=== PATIENT | male | born 1945 | race Caucasian/White ===

== ENCOUNTER 2019-10-17 10:38 | Outpatient (CLI) | payer MEDICARE, SELFPAY ==
--- NOTE | 2019-10-24 12:27 | WPDPFTINT ---
PFT Interpretation PFT Interpretation: DOS: 10/17/2019 REQUESTING: Cynthia Guo NP REASON FOR TESTING: Cough PULMONARY FUNCTION TESTS Results are reliable and reproducible. Spirometry: Normal FEV1 86% predicted, mild decrease in FVC 70%, normal FEV1%. No bronchodilator was given. Lung volumes: Decreased total lung capacity 77% mild restriction. No air trapping. ERV is low 45%, and may be due to increased BMI. Increased airway resistance 215% predicted. Diffusion: DLCO mildly decreased 72%. Flow volume loop: Restrictive pattern. IMPRESSION: Mild restrictive ventilatory impairment without evidence of obstruction. The restriction may be attributed to increased BMI. Restriction can mask obstruction. There is increase in airway resistance. Very mild diffusion impairment. Clinical correlation is recommended. No prior studies for comparison. Raven Jones MD
== END 2019-10-17 10:39 | disposition home or self-care (01) ==
PROVIDERS: PCP Family Medicine
DX: R05 Cough (principal); J42 Unspecified chronic bronchitis
CPT/HCPCS: 94375; 94726; 94729

== ENCOUNTER 2019-11-18 11:05 | Outpatient (CLI) | payer MEDICARE, SELFPAY | END 2019-11-18 11:06 | disposition home or self-care (01) | PROVIDERS: PCP Family Medicine | DX: R06.02 Shortness of breath (principal); R05 Cough | CPT/HCPCS: 87070; 87205; 89190 ==

== ENCOUNTER → 2020-09-28 16:15 | Outpatient (CLI) | payer MEDICARE, SELFPAY ==
--- NOTE | ~2020-09-28 | XR_ITS ---
EXAMINATION: XR lumbar spine 2-3V DATE: 09/28/2020 16:37 INDICATION: Right low back pain TECHNIQUE: Anteroposterior and lateral views of the lumbar spine, and cone-down lateral view of the l umbosacral junction were obtained. COMPARISON: CT, 11/12/2018 FINDINGS: There is a chronic T12 compression fracture. The lumbar vertebral body heights and alignmen t are maintained. There is mild loss of intervertebral disc space height throughout the lumbar spine. No lumbar spine fracture is identified. Calcified atherosclerosis is noted. IMPRESSION: 1. Mild lumbar spondylosis without acute findings or significant interval change. 2. Chronic T12 compression fracture. Reviewed, dictated and finalized at location A. 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 Mild lumbar spondylosis without acute findings or significant interval rice e. 2. Chronic T12 compression fracture.
== END ==
PROVIDERS: PCP Family Medicine; Visit Provider Physician Assistant Medical
DX: M54.5 Low back pain (principal); M47.816 Spondylosis without myelopathy or radiculopathy, lumbar region; M48.54XA Collapsed vertebra, not elsewhere classified, thoracic region, initial encounter for fracture
CPT/HCPCS: 72100

== ENCOUNTER → 2020-09-29 13:44 | Outpatient (CLI) | payer MEDICARE, SELFPAY ==
--- NOTE | ~2020-09-29 | XR_ITS ---
EXAMINATION: XR abdomen/kub 1V EXAM DATE: 09/29/2020 14:11 INDICATION: Low back pain, symptoms 3 weeks. TECHNIQUE: Frontal projection(s) of the abdomen for interpretation. Comparison is made to prior exami nation from 07/09/2014. FINDINGS: Mild to moderate lower thoracic levocurvature, more than on prior examination, could be pa rtly positional. Previously seen left-sided double-J ureteral stent has been removed. Calcifications in the pelvis are believed to be phleboliths. There is 3 mm linear density projecting over right kidn ey, possible nephrolithiasis. Large amount of ascending and transverse colonic gas. No small bowel ob struction. There is no organomegaly. IMPRESSION: 1. Possible right nephrolithiasis. 2. Large amount of right hemicolonic gas. Reviewed, dictated and finalized at location A. CTOR
== END ==
PROVIDERS: PCP Family Medicine; Visit Provider Nurse Practitioner Family
DX: M54.5 Low back pain (principal); Z87.442 Personal history of urinary calculi; N20.0 Calculus of kidney
CPT/HCPCS: 74018

== ENCOUNTER 2020-10-05 14:22 | Outpatient (CLI) | payer MEDICARE, SELFPAY | END 2020-10-05 14:23 | disposition home or self-care (01) | LOC: ANHCOVIDVC 14:22 | PROVIDERS: PCP Family Medicine | DX: Z23 Encounter for immunization (principal) | CPT/HCPCS: 0001A; 91300 ==

== ENCOUNTER → 2020-10-18 08:00 | Outpatient (CLI) | payer MEDICARE, SELFPAY ==
--- NOTE | ~2020-10-18 | US_ITS ---
US abdomen limited INDICATION: Right upper quadrant abdominal pain PROCEDURE: Realtime right upper abdominal ultrasound. COMPARISON: CT dated 11/12/2018 FINDINGS: Pancreas is not well visualized due to bowel gas and liver attenuation. Liver echotexture is increased, consistent with fatty infiltration. There is normal directional flow in the portal vei n. The gallbladder is contracted without stones, gallbladder wall thickening or pericholecystic fluid. Common bile duct measures 6 mm. No sonographic Hillman's sign. IMPRESSION: 1: Hepatic steatosis. Reviewed, dictated and finalized at location A. IMPRESSION: 1: Hepatic steatosis.
== END ==
PROVIDERS: PCP Family Medicine; Visit Provider Surgery
DX: R10.11 Right upper quadrant pain (principal); K76.0 Fatty (change of) liver, not elsewhere classified
CPT/HCPCS: 76705

== ENCOUNTER 2020-10-21 08:22 | Outpatient (CLI) | payer MEDICARE, SELFPAY ==
--- NOTE | ~2020-10-21 | NM_ITS ---
EXAMINATION: NM bone scan whole body DATE: 10/21/2020 12:38 INDICATION: Low back pain. TECHNIQUE: 25.7 mCi Tc-99m HDP was administered intravenously. Delayed whole-body scintigrams were o btained. COMPARISON: CT abdomen and pelvis dated 11/12/2018 FINDINGS: Likely degenerative joint centered uptake at the partially visualized bilateral hands, the bilateral knees, ankles and left midfoot and at the bilateral acromioclavicular joints, right greater than left . There is likely degenerative disc centered increased uptake such with severe disc height loss on pr ior CT at the C6-C7 disc space. Additional likely degenerative increased uptake along the right side of the mid to lower lumbar spine in the region of T9 and T12 which could be related to either osteoar thritis at the costovertebral or facet joints or related to degenerative endplate osteophytes. No cor responding acute fracture or suspicious lytic or blastic bone lesions at these locations. No other le sions suspicious for fracture or metastatic disease. Mild lower thoracic levoscoliosis. IMPRESSION: 1. Typical pattern of scattered foci of likely degenerative joint and disc centered uptake. No lesion s suspicious for fracture or metastatic disease. Reviewed, dictated and finalized at location A. IMPRESSION: 1. Typical pattern of scattered foci of likely degenerative joint and disc cent ered uptake. No lesions suspicious for fracture or metastatic disease.
== END 2020-10-21 08:23 | disposition home or self-care (01) ==
PROVIDERS: PCP Family Medicine; Visit Provider Family Medicine
DX: M54.5 Low back pain (principal); N18.30 Chronic kidney disease, stage 3 unspecified; S22.080S Wedge compression fracture of T11-T12 vertebra, sequela
CPT/HCPCS: 78306; A9561

== ENCOUNTER 2020-10-26 14:09 | Outpatient (CLI) | payer MEDICARE, SELFPAY | END 2020-10-26 14:10 | disposition home or self-care (01) | LOC: ANHCOVIDVC 14:09 | PROVIDERS: PCP Family Medicine | DX: Z23 Encounter for immunization (principal) | CPT/HCPCS: 0002A; 91300 ==

== ENCOUNTER 2020-10-27 07:20 | Outpatient (CLI) | payer MEDICARE, SELFPAY ==
--- NOTE | ~2020-10-27 | NM_ITS ---
EXAMINATION: NM hepatobiliary w pharm DATE: 10/27/2020 10:33 INDICATION: Gallbladder disease and right upper quadrant pain. COMPARISON: None. TECHNIQUE: 5.1 mCi Tc-99m mebrofenin (Choletec) was administered intravenously. Scintigraphic images of the abdomen were obtained for one hour. 2.9 mcg sincalide (Kinevac) was administered by slow intr avenous infusion, and imaging was continued for 30 minutes. Gallbladder ejection fraction was calcula yocasta by the technologist. FINDINGS: There is normal clearance of radiotracer from the blood pool. There is homogeneous tracer uptake by t he liver. Activity progresses to the gallbladder and bowel. The gallbladder ejection fraction (GBEF) is 24% (normal 10-90%, but most patient with gallbladder dysfunction have GBEF < 35% which does over lap with the normal range). IMPRESSION: 1. . Gallbladder ejection fraction of 24% is at the lower range of normal. This could be normal but is also within the range of overlap with gallbladder dysfunction or chronic cholecystitis in the tina ropriate clinical setting. Reviewed, dictated and finalized at location A. IMPRESSION: 1. . Gallbladder ejection fraction of 24% is at the lower range of normal. Th is could be normal but is also within the range of overlap with gallbladder dys function or chronic cholecystitis in the appropriate clinical setting.
== END 2020-10-27 07:21 | disposition home or self-care (01) ==
PROVIDERS: PCP Family Medicine; Visit Provider Family Medicine
DX: R10.11 Right upper quadrant pain (principal); K82.8 Other specified diseases of gallbladder
CPT/HCPCS: 78227; A9537; J2805

== ENCOUNTER 2021-02-17 08:00 | Outpatient (RCR) | payer MEDICARE, SELFPAY ==
--- NOTE | 2021-01-18 09:11 | PTOPEVAL ---
INITIAL PHYSICAL THERAPY EVALUATION and PLAN OF CARE Thank you for referring Danial Wilson to [facility].? Danial is scheduled to be seen for physical therapy? 2x/week for 4 weeks. Please review, sign, date and return this plan of care SARAH. I agree with and certify that the following plan of care is medically necessary. Referring Physician Date Admitting Provider: Attending Provider: Lucio Oliveira MD Referring Provider: *PT Outpatient Evaluation Start: 01/18/21 07:59 Freq: Status: Active Protocol: Document 01/18/21 07:59 KARIN (Rec: 01/18/21 09:10 KARIN [id number]) Therapy Assessment Status Assessment Status Assessment Status Evaluation Outpatient Past Medical History Past Medical History Source of Past Medical History Recalled from Previous Visit, Confirmed with Patient/Family Neurological History Hx Neurological Disorders No Significant History Cardiovascular History Hx Hypercholesterolemia Yes: TAKES MED Hx Hypertension Yes: TAKES MED Respiratory History Hx Bronchitis Yes: CHRONIC Hx Emphysema Yes Hx Pulmonary Embolism Yes: LT LUNG 08/2018 Hx Sleep Apnea Yes: WEARS BI PAP WITH O2 2L Gastrointestinal History Hx Esophageal Disorders Yes: DILITATION X3 Hx Ulcerative Colitis Yes: TAKES MED Genitourinary History Hx Benign Prostatic Hyperplasia Yes Hx Kidney Stones Yes: MULT.STONE EXTRACTIONS SINCE AGE 35 Hx Transurethral Resection Yes: TURP 1994 Musculoskeletal History Hx Arthritis Yes Hx Fractures Yes: T 12 IN 1979 Hematological History Hx Hematological Disorders No Significant History Endocrine History Hx Endocrine Disorders No Significant History HEENT History Hx Cataracts Yes: BILAT SURG. Integumentary History Hx Skin Disorders No Significant History Reproductive History Hx Reproductive Disorders No Significant History Psychosocial History Hx Anxiety Yes Pain History History of Any Previous or Ongoing No Significant History Instance of Pain Anesthesia History Hx Anesthesia Reactions No Significant History Evaluation Information Problem Diagnosis low back pain Onset October 2020 Additional Evaluation Detail wedge compression freacture of T11-12 vertebra - 1979 - carnival ride - landed on back - hospitalized x 1 wk Subjective Information Recently had several falls in Query Text:As Reported By Patient/ bathtub - couple of weeks ago Family - hit back, head, L shoulder -
--- NOTE | 2021-02-17 10:29 | PTOPEVAL ---
PHYSICAL THERAPY DISCHARGE SUMMARY Thank you for referring Danial Wilson to [facility].? Danial has been seen x 9 visits. He has met most goals set. He performs his HEP well which he is to continue to perform. He is ready for d/c from PT. I agree with Danial's discharge from PT. Referring Physician Date Admitting Provider: Attending Provider: Lucio Oliveira MD Referring Provider: Therapy Assessment Status Assessment Status Assessment Status Discharge Evaluation Information Problem Diagnosis low back pain Subjective Information Danial states that he is okay Query Text:As Reported By Patient/ with shopping as long as he Family has a cart. Low back pain is always there - sometimes at a low level, other times 5/10. Doing okay with HEP. He reports with medication from MD for back spasms, he is able to sleep 10 hours/night. Pain Assessment Timing of Pain Assessment Timing of Pain Assessment Assessment Pain Scale Pain Scale Used Numeric (1 - 10) Self Report Pain Assessment Back Reported Pain Level 5 Pain Description Dull Lowest Pain Intensity 2 Greatest Pain Intensity 5 Pain Score Pain Score 5: Self Report Interventions Used Interventions Used By Clinicians Electrical Stimulation, Exercise,Heat Cervical and Lumbar ROM Lumbar ROM Lumbar Flexion (0-90) 50 Query Text:Active in Degrees Lumbar Extension (0-40) 15 Query Text:Active in Degrees Lumbar Lateral Flexion Right (0-40) 15 Query Text:Active in Degrees Lumbar Lateral Flexion Left (0-40) 15 Query Text:Active in Degrees Lumbar Comments trunk held in neutral in standing today. No c/o's discomfort with trunk AROM. General Exercise General Exercises Exercise Location core Exercise Description Seated: Query Text:Record Sets, Reps, -HS stretch 3x15 sec hold Resistance, and Position -lower cervical and upper thoracic stretch 3x15 sec hold -Mid thoracic rotation stretch 3x15 sec hold - modified - mild rotation hand to opposite medial distal thigh - reinforced to only go this far -seated back extension over chair 3x15 sec hold - Seated hip adduction x 10 reps with 5 seconds hold
== END 2021-02-18 14:41 | disposition home or self-care (01) ==
LOC: ANHPT 08:00
PROVIDERS: PCP Family Medicine; Visit Provider Family Medicine
DX: M54.5 Low back pain (principal); G89.29 Other chronic pain; S22.080D Wedge compression fracture of T11-T12 vertebra, subsequent encounter for fracture with routine healing
CPT/HCPCS: 97014; 97110; 97140; 97162; G0283

== ENCOUNTER → 2021-04-11 15:45 | Outpatient (CLI) | payer MEDICARE, SELFPAY ==
--- NOTE | ~2021-04-11 | XR_ITS ---
XR chest 2V DATE: 04/11/2021 17:00 INDICATION: Shortness of breath TECHNIQUE: 2 views COMPARISON: 12/09/2018 PA and lateral chest FINDINGS: There is chronic moderate elevation of the right leaf of the diaphragm. Borderline heart size. Aortic calcification. No pulmonary consolidation, pleural effusion or pneumothorax is evident. Pulmonary vascularity appear s mildly prominent with redistribution which may indicate pulmonary venous hypertension. Diffuse osteopenia. Chronic anterior wedge compression fracture deformity of approximately T12 IMPRESSION: Pulmonary vascular redistribution suggests mild pulmonary venous hypertension Reviewed, dictated and finalized at location A. IMPRESSION: Pulmonary vascular redistribution suggests mild pulmonary venous hy pertension
== END ==
PROVIDERS: PCP Family Medicine; Visit Provider Family Medicine
DX: R06.02 Shortness of breath (principal); M48.54XA Collapsed vertebra, not elsewhere classified, thoracic region, initial encounter for fracture
CPT/HCPCS: 71046

== ENCOUNTER 2021-06-11 13:11 | Inpatient (IN) | payer MEDICARE, SELFPAY ==
[2021-06-11] VITALS (9 sets, daily range): BP systolic 104–131; BP diastolic 39–70; PULSE 63–101; RESP 14–25; TEMP 36–36.6; O2SAT 93–100; BMI 43.6
--- NOTE | ~2021-06-11 | CT_ITS ---
EXAMINATION: CT abdomen pelvis wo con DATE: 06/13/2021 01:10 INDICATION: Vomiting TECHNIQUE: Computed tomography (CT) of the abdomen and pelvis was performed without intravenous contr ast. Automated exposure control and iterative reconstruction technique were employed. Exam dose: 191 6.58 mGy-cm total exam DLP. COMPARISON: 11/12/2018 CT abdomen pelvis FINDINGS: Cardiomegaly. No pericardial or pleural effusion. Coronary artery calcification. Predominantly basilar peripheral probable fibrotic changes of the lungs. There are couple of hepatic calcified granulomas and numerous splenic calcified granulomas consistent with old granulomatous disease. No hepatic, splenic, pancreatic, adrenal space-occupying mass lesion . The gallbladder is present. No bile duct or pancreatic duct dilatation. Bilateral renal cysts. Approximately 6 mm nonobstructing right renal calculus and 2 smaller nonobstru cting left renal calculi. No ureteral calculus or hydroureteronephrosis. There is extensive abdominal aortic calcification and calcification at the origins of the celiac, sup erior mesenteric and renal arteries. No abdominal aortic aneurysm. No intraperitoneal or retroperitoneal or pelvic mass lesion or adenopathy or ascites. Small sliding hiatal hernia. There is prominent thickening of the wall of the rectum and sigmoid colon and surrounding inflammator y change consistent with proctocolitis. Diverticulosis of the colon; no CT evidence of diverticulitis. Status post right partial colectomy. No bowel obstruction or intraperitoneal free air. Small bilateral fat-containing inguinal hernias. There is moderate anterior wedging of T12 consistent with compression fracture, likely chronic. There are degenerative changes of the thoracic and lumbar spine. No suspicious osteolytic or osteoblastic lesions are noted. IMPRESSION: Proctocolitis, with thickening of the wall and surrounding inflammation involving the di stal sigmoid colon and rectum Diverticulosis of the colon; no CT evidence of diverticulitis Status post right partial colectomy Cardiomegaly, coronary artery calcification Peripheral fibrotic changes of the lungs Bilateral nonobstructive nephrolithiasis Bilateral renal cysts Small sliding hiatal hernia Reviewed, dictated and finalized at Location A. Reviewed, dictated and finalized at location A. NE BOSS IMPRESSION: Proctocolitis, with thickening of the wall and surrounding inflamm ation involving the distal sigmoid colon and rectum Diverticulosis of the colon; no CT evidence of diverticulitis Status post right partial colectomy Cardiomegaly, coronary artery calcification Peripheral fibrotic changes of the lungs Bilateral nonobstructive nephrolithiasis Bilateral renal cysts Small sliding hiatal hernia
--- NOTE | ~2021-06-11 | US_ITS ---
EXAMINATION: US renal BI DATE: 06/13/2021 17:04 INDICATION: Acute kidney injury. TECHNIQUE: Multiple ultrasound grayscale images of the kidneys were obtained. COMPARISON: CT abdomen and pelvis 06/13/2021 FINDINGS: The right kidney measures 10.9 x 6.6 x 3.9 cm. The left kidney measures 11.1 x 5.0 x 5.2 cm. The kidn eys demonstrate normal parenchymal echogenicity. There are cysts in left kidney measuring up to 2.9 c m. There is no hydronephrosis. The bladder is decompressed by a Haider catheter. IMPRESSION: 1. Normal kidney sizes. No hydronephrosis. Reviewed, dictated and finalized at location A. PEDIATRIC ALLERGIST
--- NOTE | ~2021-06-11 | XR_ITS ---
XR chest 1V portable DATE: 06/13/2021 00:28 INDICATION: Shortness of breath, new onset fever. Vomiting. TECHNIQUE: Portable upright AP chest on 06/13/2021 at 0023 hours COMPARISON: 04/11/2021 2 view chest FINDINGS: There is pulmonary vascular congestion and redistribution. Heart size is not optimally eval uated on AP projection magnification. There are patchy infiltrates in the mid and lower lung zones. These may be due to pulmonary edema and /or pneumonia. Moderate elevation right leaf of the diaphragm. There is minimal if any pleural effusion. No pneumoth orax. Dextro scoliosis of the thoracic spine. Diffuse osteopenia. IMPRESSION: Pulmonary vascular congestion and bilateral pulmonary infiltrates suggesting congestive c hanges; pneumonia is not excluded Reviewed, dictated and finalized at location A. EL LOCOMOTIVE FIRER/FIREMAN IMPRESSION: Pulmonary vascular congestion and bilateral pulmonary infiltrates s uggesting congestive changes; pneumonia is not excluded
--- NOTE | ~2021-06-11 | XR_ITS ---
EXAMINATION: XR abdomen/kub 1V INDICATION: Constipation, urinary retention TECHNIQUE: Supine views of the abdomen were obtained on three radiographs. COMPARISON: 09/29/2020 FINDINGS: There is a moderate volume of stool in the distal colon with gas-filled loops of proximal c olon. No free intraperitoneal gas is identified. There is moderate osteoarthritis of the hips. Phlebo liths are noted in the pelvis. IMPRESSION: 1. Constipation. Reviewed, dictated and finalized at location A. ATING THEATRE TECHNICIAN IMPRESSION: 1. Constipation.
--- NOTE | 2021-06-11 13:46 | ED.MALEGU ---
HPI - Male Genitourinary General Chief complaint: Urogenital-Male Stated complaint: no urine since 10pm last night Time Seen by Provider: 06/11/21 13:20 Source: patient and family Mode of arrival: ambulatory Limitations: no limitations History of Present Illness HPI Narrative: 75-year-old male Main complaint is inability to void, with no passage of urine since sometime yesterday evening He is prescribed both metolazone and Lasix, and also has a prescription for Gemtesa which is for overactive bladder No hematuria, no dysuria, no back pain, no fever He additionally complains of constipation, reviewing his record it looks like this is been somewhat of a chronic issue since he had a hemicolectomy There are some chart notes indicating that he had a normal BMP in March and subsequently was started on the metolazone for swelling and his says that he diuresed very briskly in response to that However his indicates that he at some point had to see Dr. Traore as his creatinine was found to have risen and he was advised to stop taking the metolazone for 10 days and be rechecked Related Data Home Medications Medication Instructions Recorded Confirmed clonazepam 2 mg PO HS 05/30/19 04/18/21 guaifenesin [Mucinex] 600 mg PO DAILY 05/30/19 04/18/21 lysine HCl 1,000 mg PO DAILY 05/30/19 04/18/21 multivitamin [Multiple Vitamins] 1 tablet PO DAILY 05/30/19 04/18/21 oxybutynin chloride 15 mg PO DAILY 05/30/19 04/18/21 pramipexole 2 mg HS 05/30/19 04/18/21 oxybutynin chloride 15 mg 15 mg PO DAILY 04/11/21 04/18/21 tablet,extended release 24 hr vibegron 75 mg tablet 75 mg PO DAILY 04/11/21 04/18/21 cholecalciferol (vitamin D3) 100 5,000 unit PO DAILY cap 04/18/21 04/18/21 mcg (4,000 unit) capsule azithromycin 250 mg tablet 250 mg PO DAILY 04/19/21 Allergies Allergy/AdvReac Type Severity Reaction Status Date / Time codeine AdvReac Mild CONSTIPATIO Verified 04/19/21 10:57 N methylprednisolone AdvReac Mild Vomiting Verified 04/19/21 10:57 prednisone AdvReac Unknown Vomiting Verified 04/19/21 10:57 Review of Systems Review of Systems: All systems reviewed & are unremarkable except as noted in HPI and below Constitutional: Constitutional: Reports no additional constitutional complaints, Denies chills, Reports fatigue, Denies fever(s), Denies headache(s) and Reports weakness Comments: Weight loss Eyes: Eyes: Reports change in vision ENT: Denies headache(s) and Denies sore throat Cardiovascular: Cardiovascular: Denies chest pain and Denies dyspnea Respiratory: Respiratory: Denies cough and Denies dyspnea Gastrointestinal: Gastrointestinal: Denies abdominal pain, Reports bloating, Reports constipation, Denies diarrhea and Denies vomiting Genitourinary: Genitourinary: Reports oliguria, Denies dysuria and Denies urinary frequency Musculoskeletal: Musculoskeletal: Reports myalgias, Denies deformity, Denies arthralgias, Denies joint swelling and Denies numbness Integumentary/Breasts: Skin/Breast: Denies rash and Denies wounds Neurologic: Denies headache(s), Denies focal weakness and Denies numbness Psychiatric: Psychiatric: Reports no additional psychiatric complaints Endocrine: Endocrine: Reports no additional endocrine complaints Hematologic/Lymphatic: Hematologic/Lymphatic: Reports no additional hematologic/lymphatic complaints Allergic/Immunologic: Allergic/Immunologic: Reports no additional allergic/immunologic complaints [facility] Past Medical History Medical History Anxiety BMI 40.0-44.9, adult BMI 45.0-49.9, adult Compression fx, thoracic spine COPD (chronic obstructive pulmonary disease) GERD (gastroesophageal reflux disease) History of blood clots HTN (hypertension) Hyperlipidemia Low serum vitamin D KIRSTEN on CPAP Sensation of feeling cold Skin tags, anus or rectum Sludge in gallbladder Surgical History Surgical History (Reviewed 06/11/21 @ 1
[2021-06-11 14:00] LABS: Basophils Absolute Auto 0.1 K/mm3 (0.0-0.1); Basophils Percent Auto 1.1 % (0.2-1.2); Eosinophils Absolute Auto 0.5 K/mm3 (0-0.3); Eosinophils Percent Auto 5.4 % (0-4.4); Hematocrit 36.9 % (42.0-52.0); Hemoglobin 13.1 g/dL (14.0-18.0); Immature Granulocyte Absolute 0.03 K/mm3 (0.00-0.031); Immature Granulocyte Percent A 0.3 % (0-0.5); Lymphocytes Absolute Auto 1.72 K/mm3 (0.9-3.2); Lymphocytes Percent Auto 18.4 % (18.3-44.2); Mean Corpuscular HGB Conc 35.5 g/dl (32-36); Mean Corpuscular Volume 92.9 fl (80-100); Mean Platelet Volume 9.7 fl (7.4-10.4); Monocytes Absolute Auto 0.9 K/mm3 (0.1-0.6); Monocytes Percent Auto 9.7 % (2.6-8.5); Neutrophils Absolute Auto 6.1 K/mm3 (1.3-6.7); Neutrophils Percent Auto 65.1 % (45.5-73.1); Platelet Count Result 295 k/mm3 (150-375); Red Blood Count 3.97 M/mm3 (4.6-6.20); Red Cell Distribution Width 12.1 % (11.5-14.5); White Blood Count 9.4 K/mm3 (4.5-10.0)
[2021-06-11 14:11] LABS: Add Urine Microscopic? YES; Appearance Urine Cloudy (Clear); Bacteria Urine Trace /hpf; Bilirubin Urine Negative (Negative); Blood Urine 2+ (Negative); Color Urine Yellow (Yellow); Glucose Urine UA Negative (Negative); Ketones Urine Negative (Negative); Leukocyte Esterase Ur Negative LEU/UL (Negative); Mucus Urine Few /lpf; Nitrate Urine Negative (Negative); Protein Urine 1+ mg/dL (Negative); RBC Urine 0-2 /hpf (0-2); Specific Grav Ur 1.011 (1.001-1.035); Squamous Epithelial Cell Urine Occasional /hpf (Few); Urobilinogen Urine Negative mg/dL (<2.0)
--- NOTE | 2021-06-11 14:29 | ECG_ITS ---
Rate 63 MD 119 QRSd 181 QT 506 QTc 521 --[place]-- P -32 QRS -38 T 84 SINUS RHYTHM WITH SHORT MD INTERVAL LEFT AXIS DEVIATION RIGHT BUNDLE BRANCH BLOCK LEFT VENTRICULAR HYPERTROPHY AND ST-T CHANGE BASELINE ARTIFACT- I, II, III, AVR, AVL, AVF, V1-V6 ABNORMAL ECG Electronically Signed On 06-11-2021 15:16:21 MEDICAL REGISTRAR by Stoney SOSA
[2021-06-11 15:29] LABS: Alanine Aminotransferase 36 U/L (4-50); Albumin Level 4.1 g/dL (3.5-5.1); Alkaline Phosphatase 98 U/L (38-126); Anion Gap 8 mmol/L (8-16); Aspartate Amino Transferase 63 U/L (17-59); Bilirubin,Total 0.7 mg/dL (0.2-1.3); Blood Urea Nitrogen 62 mg/dL (9-20); Calcium 9.3 mg/dL (8.4-10.2); Carbon Dioxide 35 mmol/L (22-30); Chloride 78 mmol/L (98-107); Estimated CRCL calculation 22 ml/min; Estimated Glomerular Filt Rate 17; Glucose 112 mg/dL (65-110); Potassium 3.1 mmol/L (3.4-5.0); Sodium 121 mmol/L (137-145)
[2021-06-11] MEDS: POTASSIUM CHLORIDE 20 MEQ PACKET (FOR LIQUID) 40 MEQ PO (17:35)
[2021-06-11] MEDS: SODIUM CHLORIDE 0.9% IV 1,000 ML 150 ML IV CONT (18:00)
--- NOTE | 2021-06-11 18:44 | ADMGEN ---
This patient, Danial Wilson, was admitted to 3 [facility] Surg Room 313-01 at 1755. Patient/family oriented to hospital policies and general routines including ID bracelet, bed and alarms, visiting hours, pain management, procedures, bathroom and other care routines, personal items, smoking policy, room service/diet, and visiting hours. Information on how to activate the Rapid Response Team has been discussed. Patient/Family are encouraged to report perceived risks to care and to ask questions if they do not understand what they are told or what they should do.
--- NOTE | 2021-06-11 19:00 | PM.IMHP ---
H&P: HPI History of Present Illness Date/Time: 06/11/21 19:00 Chief Complaint: Decreased urine output and concerns for urinary retention. Narrative: This is a 75-year-old male with multiple medical problems including hypertension, hyperlipidemia, chronic kidney disease stage III, obstructive sleep apnea, benign prostatic hyperplasia status post TURP, and several other comorbidities who presented to the emergency department earlier today for evaluation of decreased urine output with concerns for urinary retention. Patient reports that he was unable to urinate for about 14 to 15 hours before coming to the emergency department and reports that his urine output had dropped off before that, which is not necessarily unusual for him given history of BPH. BUN and creatinine on arrival to the emergency department today were 62 and 3.60 and they were noted to be within normal limits at the end of March 2021. More recently he had outpatient labs done within the past 10 days or so showing an acute kidney injury with a creatinine of right around 4.0. He was told to hold his furosemide and metolazone by his orthotics assistant and he has not been taking those for the last 4 days. He also reports ongoing nausea over the past several weeks with occasional episodes of emesis. He goes on to say that he has a history of esophageal stricture and more recently he has had difficulties swallowing and on occasion it feels as though food is getting stuck in his esophagus. Patient also reports being started on some new medications recently, 1 for bladder spasms and another for overactive bladder. He has not noticed any blood in the urine although it has appeared darker than usual. He denies dysuria. No fever, chills, or sweats. Review of Systems Review of Systems: Twelve systems were reviewed. Occasional lightheadedness on standing. No syncope or near syncope. No falls. He has a chronic cough occasionally productive of yellow phlegm which is unchanged. Patient is compliant with his BiPAP at nighttime. He has chronic dyspnea on exertion which he relates to his weight. He denies orthopnea and PND. He has intermittent lower extremity edema and it is minimal at this time. He denies concerns for aspiration. Reports issues with constipation and apparently has not had a bowel movement for 15 days. He takes 2 stool softeners a day but he has not tried to take any laxatives. He is supposed to be following up with Dr. Guevara for a colonoscopy, hopefully in the next month or so. Except as documented, all other systems were reviewed and are negative. [facility] Past Medical History Medical History (Updated 06/11/21 @ 20:58 by Norma Peralta PA-C) Anxiety Benign prostatic hyperplasia Chronic anemia Chronic obstructive pulmonary disease Compression fx, thoracic spine Gastroesophageal reflux disease History of esophageal dilatation Hyperlipidemia Hypertension Low serum vitamin D Obstructive sleep apnea treated with BiPAP Overactive bladder Pulmonary embolism (08/2018) Secondary erythrocytosis Related to COPD and obstructive sleep apnea. Previously received therapeutic phlebotomy. Tubulovillous adenoma of colon Ulcerative colitis Surgical History Surgical History (Updated 06/11/21 @ 20:53 by Norma Peralta PA-C) History of bilateral cataract extraction History of cardiac catheterization History of colonoscopy with polypectomy History of cystoscopy History of decompression of ulnar nerve Left elbow. History of dental surgery History of extraction of renal calculus History of right hemicolectomy (06/10/19) Benign tubulovillous adenoma. Hx of transurethral resection of prostate Family History Family History Father Hypertension Malignant neoplasm of prostate Sibling Diabetes mellitus Family history of cardiovascular disease Malignant neoplasm of prostate Mother Family history of rheumatic fever Deceas
[2021-06-11] MEDS: FAMOTIDINE 20 MG/2 ML VIAL IV PUSH (20:29)
[2021-06-11 21:25] LABS: Anion Gap 10 mmol/L (8-16); Blood Urea Nitrogen 58 mg/dL (9-20); Calcium 9.3 mg/dL (8.4-10.2); Carbon Dioxide 34 mmol/L (22-30); Chloride 81 mmol/L (98-107); Estimated CRCL calculation 26 ml/min; Estimated Glomerular Filt Rate 20; Glucose 141 mg/dL (65-110); Magnesium 2.3 mg/dL (1.6-2.3); Potassium 3.2 mmol/L (3.4-5.0); Sodium 125 mmol/L (137-145)
[2021-06-11] MEDS: HEPARIN SODIUM 5,000 UNITS/ML VIAL 5000 UNITS SUB-Q (21:50)
[2021-06-11] MEDS: PRAMIPEXOLE 1 MG TABLET 2 MG PO (21:50)
[2021-06-11 22:09] LABS: Thyroid Stimulating Hormone Reflex 0.591 uIU/mL (0.465-4.68)
[2021-06-11 22:19] LABS: Urea Random Urine 306 MG/DL
[2021-06-11 22:20] LABS: Creatinine Urine 49.1 mg/dL
[2021-06-11 22:23] LABS: Sodium Urine Random 23 meq/L
[2021-06-12] MEDS: POTASSIUM CHLORIDE 20 MEQ TABLET PO ×2 (00:25→08:34)
[2021-06-12] MEDS: SODIUM CHLORIDE 0.9% IV 1,000 ML 150 ML IV CONT ×2 (01:32→11:06)
[2021-06-12 02:38] VITALS: PULSE 79; O2SAT 93
[2021-06-12 06:00] VITALS: BP 101/33; PULSE 67; RESP 22; TEMP 36.3; O2SAT 99
[2021-06-12 06:35] LABS: Anion Gap 5 mmol/L (8-16); Blood Urea Nitrogen 56 mg/dL (9-20); Calcium 9.1 mg/dL (8.4-10.2); Carbon Dioxide 34 mmol/L (22-30); Chloride 85 mmol/L (98-107); Estimated CRCL calculation 29 ml/min; Estimated Glomerular Filt Rate 23; Glucose 112 mg/dL (65-110); Potassium 3.2 mmol/L (3.4-5.0); Sodium 124 mmol/L (137-145)
[2021-06-12] MEDS: ROSUVASTATIN 10 MG TABLET 20 MG PO (08:33)
[2021-06-12] MEDS: CHOLECALCIFEROL 1,000 UNITS TABLET 5000 UNITS PO (08:33)
[2021-06-12] MEDS: amLODIPine BESYLATE 2.5 MG TABLET PO (08:34)
[2021-06-12] MEDS: FAMOTIDINE 20 MG/2 ML VIAL IV PUSH ×2 (08:34→20:15)
[2021-06-12] MEDS: ASPIRIN 81 MG CHEWABLE TABLET PO (08:34)
[2021-06-12] MEDS: HEPARIN SODIUM 5,000 UNITS/ML VIAL 5000 UNITS SUB-Q ×2 (08:34→20:14)
[2021-06-12] MEDS: ACETAMINOPHEN 325 MG TABLET 650 MG PO (08:38)
[2021-06-12] MEDS: DOCUSATE SODIUM 100 MG CAPSULE PO ×2 (08:38→20:16)
[2021-06-12 12:02] LABS: Sodium 126 mmol/L (137-145)
--- NOTE | 2021-06-12 13:02 | PM.IMPN ---
Progress Note: A&P Assessment and Plan (1) Acute kidney injury: Code(s): N17.9 - Acute kidney failure, unspecified Status: Acute Assessment and Plan: Precipitating etiology is not entirely clear but is most likely related to a combination of over-diuresis and urinary retention. He has 1+ protein and 2+ blood on urine dipstick so nephritis could be a possibility as well though with his electrolytes it may very well be related to over diuresis. He was instructed by his shape brick molder, Dr. Traore to hold his furosemide and metolazone and has been doing so for 4 days. Appreciate nephrology consultation Hold diuretics, hold benazepril balsalazide. Continue with cautious IV hydration with close monitoring of volume status and renal function. Haider catheter has been inserted for strict I/O. Monitor renal function closely. Renally dose medications and avoid nephrotoxins. Creatinine improved today down to 2.7 (2) Electrolyte abnormality: Code(s): E87.8 - Other disorders of electrolyte and fluid balance, not elsewhere classified Status: Acute Assessment and Plan: Including moderate hyponatremia (121), hypokalemia (3.1), and hypochloremia (78). Improving was cautious IV hydration Continue to monitor electrolytes Sodium improved to 126 with IV fluids. FENa is 1.1% (though he has only been off diuretics for 4 days). FEUrea is 32.2%. Repeat sodium this evening to ensure appropriate rate of correction Potassium still slightly decreased at 3.2, will administer 20 mEq KCl Repeat BMP tomorrow. Continue to monitor electrolytes (3) Chronic anemia: Code(s): D64.9 - Anemia, unspecified Status: Acute Assessment and Plan: Hemoglobin and hematocrit are stable on review of previous labs. (4) Ulcerative colitis: Code(s): K51.90 - Ulcerative colitis, unspecified, without complications Status: Acute Assessment and Plan: No acute issues. Balsalazide is on hold as it has been implemented in renal failure, interstitial nephritis, and minimal change disease. (5) Hypertension: Code(s): I10 - Essential (primary) hypertension Status: Acute Assessment and Plan: Blood pressures were reviewed and they are stable. Running on low-end of normal today with last BP 101/33. Several antihypertensives on hold at this time as above. Continue to monitor BP trends. (6) Benign prostatic hyperplasia: Code(s): N40.0 - Benign prostatic hyperplasia without lower urinary tract symptoms Status: Acute Assessment and Plan: Continue Haider catheter. Will need to consider Haider catheter but will await for nephrology recommendations to allow for accurate I&O at this time. (7) Overactive bladder: Code(s): N32.81 - Overactive bladder Status: Acute Assessment and Plan: Oxybutynin and vibegron currently on hold given concerns for retention on arrival. (8) Obstructive sleep apnea treated with BiPAP: Code(s): G47.33 - Obstructive sleep apnea (adult) (pediatric) Status: Acute Assessment and Plan: Continue with BiPAP which patient brought from home. (9) Constipation: Code(s): K59.00 - Constipation, unspecified Status: Acute Assessment and Plan: Reports no bowel movement for 15 days. Abdominal x-ray demonstrates moderate volume of stool. May be related to anticholinergic medication, which have now been placed on hold. Continue MiraLax and Colace. Will also administer Dulcolax suppository. Subjective Date/time seen: 06/12/21 13:02 Interval history: Date of service: 06/12/2021 Danial Wilson is a 75-year-old male with a history of BPH s/p TURP, overactive bladder, COPD, CKD stage 3, hypertension, hyperlipidemia, KIRSTEN on BiPAP, and several other medical problems who is seen in follow-up for urinary retention and acute kidney injury. He is feeling fairly well today. He did not sleep
[2021-06-12] MEDS: polyethylene glycoL 3350 17 GM POWD.PACK PO (13:42)
[2021-06-12 14:00] VITALS: BP 124/47; PULSE 58; RESP 18; TEMP 36.1; O2SAT 91
--- NOTE | 2021-06-12 14:20 | PM.CNNEP ---
Assessment and Plan Assessment and plan (1) SHUBHAM (acute kidney injury): Code(s): N17.9 - Acute kidney failure, unspecified Status: Acute Assessment and Plan: suspect due to volume depletion this was likely worsened by previous diuretic use, urinary retention, and concurrent EDI-I use slow improvement noted in creatinine since admission persaud catheter in place follow repeat labs and UOP (2) Chronic kidney disease, stage 2 (mild): Code(s): N18.2 - Chronic kidney disease, stage 2 (mild) Status: Acute Assessment and Plan: baseline creatinine runs ~ 1.1 - 1.4mg/dl due to hypertension, vascular disease, and age-related change (3) Hyponatremia: Code(s): E87.1 - Hypo-osmolality and hyponatremia Status: Acute Assessment and Plan: suspect hypovolemic hyponatremia low urine sodium supports this improvement in sodium noted since admission goal of therapy is a rate of change of 4 - 6meq/24hrs (and no more than 8meq) follow trend of repeat sodium levels (4) Benign prostatic hyperplasia: Code(s): N40.0 - Benign prostatic hyperplasia without lower urinary tract symptoms Status: Chronic Assessment and Plan: persaud catheter in place follow I/Os voiding trial before discharge (5) KIRSTEN (obstructive sleep apnea): Code(s): G47.33 - Obstructive sleep apnea (adult) (pediatric) Status: Chronic Assessment and Plan: use home BiPAP nightly (6) Constipation: Code(s): K59.00 - Constipation, unspecified Status: Acute Assessment and Plan: started on bowel regimen Will continue to follow. History of Present Illness Reason for Consult Consult date: 06/12/21 Reason for consult: acute renal failure (on chronic kidney disease) and hyponatremia Chief Complaint Chief complaint: hyponatremia/hypokalemia/shubham History of Present Illness Narrative: The patient is a 75-year-old male with multiple medical problems As outlined below who presented to [facility] Emergency room with complaints of decreased urine output. According to the patient as well as his was at bedside, he has been unable to urinate the last 15 hr before coming to the emergency room. Even prior to that, she reports that his urine output seems to have decreased in general although it should be noted that he was recently taken off of his diuretics due to his worsening renal dysfunction. His diuretics were discontinued on the assumption that they are responsible for his worsening kidney disease/ function and possibly resulting in intravascular volume depletion. Workup and evaluation in the emergency room demonstrated the patient to be hemodynamically stable but the patient himself reported that he felt terrible. Routine blood test done in the emergency room demonstrated a marked decline in his kidney function from baseline with a BUN of 62 and a creatinine of 3.6 in association with electrolyte abnormalities of hyponatremia and hypokalemia.. It should be noted that labs done about a week prior to that showed his cranial 4.0mg/dL. Other associated symptoms include ongoing nausea for last several weeks with on and off episodes of emesis. Due to these symptoms, his oral intake has fallen off quite a bit. He prior to the issue of decreased urine output, he did report that his urine seems a bit dark and concentrated in comparison to what is usual for him. Given his apparent acute kidney injury on top of his baseline kidney disease, coupled with a constellation of symptoms as mentioned, he had a Persaud catheter placed and was subsequently to the hospital for further evaluation and therapy. Renal consultation was requested due to his acute kidney injury on top of his baseline kidney disease along with the aforementioned hypokalemia and hyponatremia. The patient is somewhat known to me as I take care of his outpatient chronic kidney disease needs. His baseline cre
[2021-06-12] MEDS: BISACODYL 10 MG SUPPOSITORY RECTAL (17:16)
[2021-06-12 18:33] LABS: Sodium 130 mmol/L (137-145)
[2021-06-12 20:00] VITALS: PULSE 83; RESP 12; O2SAT 94
[2021-06-12 20:04] VITALS: PULSE 94; O2SAT 97
[2021-06-12] MEDS: ONDANSETRON INJ 4 MG/2 ML VIAL IV PUSH (20:14)
[2021-06-12] MEDS: traZODone HCL 50 MG TABLET 200 MG PO (20:15)
[2021-06-12] MEDS: clonazePAM (*CRX) 0.5 MG TABLET 2 MG PO (20:16)
[2021-06-12] MEDS: PRAMIPEXOLE 1 MG TABLET 2 MG PO (20:17)
[2021-06-12 22:00] VITALS: BP 146/46; PULSE 83; RESP 12; TEMP 36.6; O2SAT 94
[2021-06-12 22:18] LABS: Sodium 129 mmol/L (137-145)
[2021-06-13] VITALS (7 sets, daily range): BP systolic 104–119; BP diastolic 40–57; PULSE 65–89; RESP 16–18; TEMP 37.1–38.3; O2SAT 93–98
[2021-06-13 00:42] LABS: Hematocrit 36.1 % (42.0-52.0); Hemoglobin 12.8 g/dL (14.0-18.0); Mean Corpuscular HGB Conc 35.5 g/dl (32-36); Mean Corpuscular Hemoglobin 32.8 pg (26-34); Mean Corpuscular Volume 92.6 fl (80-100); Mean Platelet Volume 9.4 fl (7.4-10.4); Platelet Count Result 278 k/mm3 (150-375); Red Cell Distribution Width 12.2 % (11.5-14.5)
[2021-06-13 00:51] LABS: Anion Gap 7 mmol/L (8-16); Blood Urea Nitrogen 47 mg/dL (9-20); Calcium 9.3 mg/dL (8.4-10.2); Carbon Dioxide 29 mmol/L (22-30); Chloride 91 mmol/L (98-107); Estimated CRCL calculation 35 ml/min; Estimated Glomerular Filt Rate 29; Glucose 137 mg/dL (65-110); Potassium 3.9 mmol/L (3.4-5.0); Sodium 127 mmol/L (137-145)
[2021-06-13 00:52] LABS: Lactic Acid Reflex 1.2 mmol/L (0.7-2.1)
[2021-06-13] MEDS: PROMETHAZINE HCL 25 MG/ML AMPUL 12.5 MG IV PUSH (06:01)
[2021-06-13 06:45] LABS: Hematocrit 35.1 % (42.0-52.0); Hemoglobin 12.4 g/dL (14.0-18.0); Mean Corpuscular HGB Conc 35.3 g/dl (32-36); Mean Corpuscular Hemoglobin 32.9 pg (26-34); Mean Corpuscular Volume 93.1 fl (80-100); Mean Platelet Volume 9.9 fl (7.4-10.4); Platelet Count Result 304 k/mm3 (150-375); Red Blood Count 3.77 M/mm3 (4.6-6.20); Red Cell Distribution Width 12.2 % (11.5-14.5); White Blood Count 11.2 K/mm3 (4.5-10.0)
[2021-06-13 06:57] LABS: Anion Gap 7 mmol/L (8-16); Blood Urea Nitrogen 51 mg/dL (9-20); Calcium 9.3 mg/dL (8.4-10.2); Carbon Dioxide 33 mmol/L (22-30); Chloride 89 mmol/L (98-107); Estimated CRCL calculation 30 ml/min; Estimated Glomerular Filt Rate 24; Glucose 127 mg/dL (65-110); Potassium 3.9 mmol/L (3.4-5.0); Sodium 129 mmol/L (137-145)
[2021-06-13] MEDS: FAMOTIDINE 20 MG/2 ML VIAL IV PUSH ×2 (10:25→21:35)
[2021-06-13] MEDS: HEPARIN SODIUM 5,000 UNITS/ML VIAL 5000 UNITS SUB-Q ×2 (10:25→21:35)
--- NOTE | 2021-06-13 13:40 | PCNSR ---
On 06/13/21, the student,Shira Flood, provided care and completed [facility] documentation on this patient. I have reviewed the student's documentation and agree with the findings.
--- NOTE | 2021-06-13 14:07 | PM.IMPN ---
Progress Note: A&P Assessment and Plan (1) Acute kidney injury: Code(s): N17.9 - Acute kidney failure, unspecified Status: Acute Assessment and Plan: Precipitating etiology is not entirely clear but is most likely related to a combination of over-diuresis and urinary retention. He has 1+ protein and 2+ blood on urine dipstick so nephritis could be a possibility as well though with his electrolytes it may very well be related to over diuresis. He was instructed by his cane weigher helper, Dr. Traore to hold his furosemide and metolazone and has been doing so for 4 days. Appreciate nephrology consultation Hold diuretics, hold benazepril balsalazide. Continue with cautious IV hydration with close monitoring of volume status and renal function. Haider catheter has been inserted for strict I/O. Monitor renal function closely. Renally dose medications and avoid nephrotoxins. Creatinine has been fluctuating 2.7->2.2->2.6. (2) Electrolyte abnormality: Code(s): E87.8 - Other disorders of electrolyte and fluid balance, not elsewhere classified Status: Acute Assessment and Plan: Including moderate hyponatremia (121), hypokalemia (3.1), and hypochloremia (78). Improving was cautious IV hydration Continue to monitor electrolytes Sodium improved to 129 with IV fluids. FENa is 1.1% (though he has only been off diuretics for 4 days). FEUrea is 32.2%. Repeat sodium this evening to ensure appropriate rate of correction Potassium normal at 3.9. Repeat BMP tomorrow. Continue to monitor electrolytes (3) Chronic anemia: Code(s): D64.9 - Anemia, unspecified Status: Acute Assessment and Plan: Hemoglobin and hematocrit are stable on review of previous labs. (4) Ulcerative colitis: Code(s): K51.90 - Ulcerative colitis, unspecified, without complications Status: Acute Assessment and Plan: No acute issues. Balsalazide is on hold as it has been implemented in renal failure, interstitial nephritis, and minimal change disease. (5) Hypertension: Code(s): I10 - Essential (primary) hypertension Status: Acute Assessment and Plan: Blood pressures were on low-end of normal today with last BP 101/33-146/46. Several antihypertensives on hold at this time as above. Continue to monitor BP trends. (6) Benign prostatic hyperplasia: Code(s): N40.0 - Benign prostatic hyperplasia without lower urinary tract symptoms Status: Acute Assessment and Plan: Continue Haider catheter. Will need to consider Haider catheter but will await for nephrology recommendations to allow for accurate I&O at this time. (7) Overactive bladder: Code(s): N32.81 - Overactive bladder Status: Acute Assessment and Plan: Oxybutynin and vibegron currently on hold given concerns for retention on arrival. (8) Obstructive sleep apnea treated with BiPAP: Code(s): G47.33 - Obstructive sleep apnea (adult) (pediatric) Status: Acute Assessment and Plan: Continue with BiPAP per is home parameters. (9) Constipation: Code(s): K59.00 - Constipation, unspecified Status: Acute Assessment and Plan: Patient had 2 large bowel movements today. Reports no bowel movement for 15 days. Abdominal x-ray demonstrates moderate volume of stool. May be related to anticholinergic medication, which have now been placed on hold. Continue MiraLax and Colace. Will also administer Dulcolax suppository. Subjective Date/time seen: 06/13/21 11:00 S: The patient was examined at the bedside. He had a very large bowel movement earlier today. At the time of my examination patient experienced bowel incontinent in the bed. He denied any active complaints. He did not seem to be in any acute distress. Interval history: Date of service: 06/12/2021 Danial Wilson is a 75-year-old male with a history of BPH s/p TURP, overactive bl
--- NOTE | 2021-06-13 15:05 | PCPTNOTE ---
Attempted PT evaluation this date. RN requested to hold due to pt not having slept well last night and having very frequent bowel movements. Will attempt again at a later date/time.
--- NOTE | 2021-06-13 15:16 | P.PNNP_ITS ---
Progress Note: A&P Assessment and Plan (1) SHUBHAM (acute kidney injury): Code(s): N17.9 - Acute kidney failure, unspecified Status: Acute Assessment and Plan: * suspect due to volume depletion * this was likely worsened by previous diuretic use, urinary retention, and concurrent EDI-I use * slow improvement noted in creatinine since admission * persaud catheter in place * resume gentle IVF hydration * follow repeat labs and UOP (2) Chronic kidney disease, stage 2 (mild): Code(s): N18.2 - Chronic kidney disease, stage 2 (mild) Status: Acute Assessment and Plan: * baseline creatinine runs ~ 1.1 - 1.4mg/dl * due to hypertension, vascular disease, and age-related change (3) Hyponatremia: Code(s): E87.1 - Hypo-osmolality and hyponatremia Status: Acute Assessment and Plan: * suspect hypovolemic hyponatremia * low urine sodium supports this * improvement in sodium noted since admission with IVFs -- will resume now * goal of therapy is a rate of change of 4 - 6meq/24hrs (and no more than 8meq) * follow trend of repeat sodium levels (4) Benign prostatic hyperplasia: Code(s): N40.0 - Benign prostatic hyperplasia without lower urinary tract symptoms Status: Acute Assessment and Plan: * persaud catheter in place * follow I/Os * voiding trial before discharge (5) KIRSTEN (obstructive sleep apnea): Code(s): G47.33 - Obstructive sleep apnea (adult) (pediatric) Status: Acute Assessment and Plan: * use home BiPAP nightly (6) Constipation: Code(s): K59.00 - Constipation, unspecified Status: Acute Assessment and Plan: * on bowel regimen * improving Will continue to follow. Subjective Date/time seen: 06/13/21 15:16 Appears to be doing reasonably well since I last saw him; finally had a bowel movement earlier today; due to concerns of overcorrection of sodium; IVFs placed on hold; no apparent distress voiced; no other acute events/issues overnight or earlier this AM. Exam Narrative: General: WD/WN male in NAD Heart: normal S1 and S2; no rub Lungs: clear to auscultation Abdomen: soft, nontender, nondistended, positive bowel sounds Extremities: no cyanosis or clubbing; trace edema Skin: warm and dry Objective Data Vital Signs Vital Signs: Vital Signs Temp Pulse Resp BP Pulse Ox 06/13/21 14:00 37.1 C 71 16 108/40 L 93 06/13/21 05:52 37.8 C H 68 18 119/44 L 95 06/13/21 03:56 89 96 06/13/21 01:15 38.2 C H 06/13/21 00:47 38.3 C H 06/12/21 22:00 36.6 C 83 12 146/46 H 94 06/12/21 20:04 94 97 06/12/21 20:00 83 12 94 Intake/Output Intake/Output: Intake & Output 06/10/21 06/11/21 06/12/21 06/13/21 23:59 23:59 23:59 23:59 Intake Total 4780 850 Output Total 2050 1250 Balance 2730 -400 Meds/Results Medications: Active Medications Generic Name Dose Route Start Last Admin Trade Name Freq PRN Reason Stop Dose Admin Acetaminophen 650 mg 06/11/21 16:22 06/12/21 08:38 Acetaminophen 325 Mg Tablet PO 650 mg Q4H PRN Administration Mild Pain (1-3) or Fever Amlodipine Besylate 2.5 mg 06/12/21 09:00 06/12/21 08
--- NOTE | 2021-06-13 15:16 | PM.PNNEP ---
Progress Note: A&P Assessment and Plan (1) SHUBHAM (acute kidney injury): Code(s): N17.9 - Acute kidney failure, unspecified Status: Acute Assessment and Plan: suspect due to volume depletion this was likely worsened by previous diuretic use, urinary retention, and concurrent EDI-I use slow improvement noted in creatinine since admission persaud catheter in place resume gentle IVF hydration follow repeat labs and UOP (2) Chronic kidney disease, stage 2 (mild): Code(s): N18.2 - Chronic kidney disease, stage 2 (mild) Status: Acute Assessment and Plan: baseline creatinine runs ~ 1.1 - 1.4mg/dl due to hypertension, vascular disease, and age-related change (3) Hyponatremia: Code(s): E87.1 - Hypo-osmolality and hyponatremia Status: Acute Assessment and Plan: suspect hypovolemic hyponatremia low urine sodium supports this improvement in sodium noted since admission with IVFs -- will resume now goal of therapy is a rate of change of 4 - 6meq/24hrs (and no more than 8meq) follow trend of repeat sodium levels (4) Benign prostatic hyperplasia: Code(s): N40.0 - Benign prostatic hyperplasia without lower urinary tract symptoms Status: Acute Assessment and Plan: persaud catheter in place follow I/Os voiding trial before discharge (5) KIRSTEN (obstructive sleep apnea): Code(s): G47.33 - Obstructive sleep apnea (adult) (pediatric) Status: Acute Assessment and Plan: use home BiPAP nightly (6) Constipation: Code(s): K59.00 - Constipation, unspecified Status: Acute Assessment and Plan: on bowel regimen improving Will continue to follow. Subjective Date/time seen: 06/13/21 15:16 Appears to be doing reasonably well since I last saw him; finally had a bowel movement earlier today; due to concerns of overcorrection of sodium; IVFs placed on hold; no apparent distress voiced; no other acute events/issues overnight or earlier this AM. Exam Narrative: General: WD/WN male in NAD Heart: normal S1 and S2; no rub Lungs: clear to auscultation Abdomen: soft, nontender, nondistended, positive bowel sounds Extremities: no cyanosis or clubbing; trace edema Skin: warm and dry Objective Data Vital Signs Vital Signs: Vital Signs Temp Pulse Resp BP Pulse Ox 06/13/21 14:00 37.1 C 71 16 108/40 L 93 06/13/21 05:52 37.8 C H 68 18 119/44 L 95 06/13/21 03:56 89 96 06/13/21 01:15 38.2 C H 06/13/21 00:47 38.3 C H 06/12/21 22:00 36.6 C 83 12 146/46 H 94 06/12/21 20:04 94 97 06/12/21 20:00 83 12 94 Intake/Output Intake/Output: Intake & Output 06/10/21 06/11/21 06/12/21 06/13/21 23:59 23:59 23:59 23:59 Intake Total 4780 850 Output Total 2050 1250 Balance 2730 -400 Meds/Results Medications: Active Medications Generic Name Dose Route Start Last Admin Trade Name Freq PRN Reason Stop Dose Admin Acetaminophen 650 mg 06/11/21 16:22 06/12/21 08:38 Acetaminophen 325 Mg Tablet PO 650 mg Q4H PRN Administration Mild Pain (1-3) or Fever Amlodipine Besylate 2.5 mg 06/12/21 09:00 06/12/21 08:34 Amlodipine Besylate 2.5 Mg Tablet PO 2.5 mg DAILY MARTHA Administration Aspirin 81 mg 06/12/21 09:00 06/12/21 08:34 Aspirin 81 Mg Chewable Tablet PO 07/12/21 08:59 81 mg DAILY MARTHA Administration Clonazepam 2 mg 06/12/21 21:00 06/12/21 20:16 Clonazepam (*Crx) 0.5 Mg Tablet PO 2 mg HS MARTHA Administration Docusate Sodium 100 mg 06/12/21 09:00 06/12/21 20:16 Docusate Sodium 100 Mg Capsule PO 100 mg Q12HR MARTHA Administration Famotidine 20 mg 06/11/21 21:00 06/12/21 20:15 Famotidine 20 Mg/2 Ml Vial IV PUSH 20 mg Q12HR MARTHA Administration Heparin Sodium (Porcine) 5,000 units 06/11/21 21:00 06/12/21 20:14 Heparin Sodium 5,000 Units/Ml Vial SUB-Q 5,000 units Q12HR MARTHA Administ
[2021-06-13] MEDS: ROSUVASTATIN 10 MG TABLET 20 MG PO (15:25)
[2021-06-13] MEDS: CHOLECALCIFEROL 1,000 UNITS TABLET 5000 UNITS PO (15:25)
[2021-06-13] MEDS: polyethylene glycoL 3350 17 GM POWD.PACK PO (15:25)
--- NOTE | 2021-06-13 15:55 | WPDGICN ---
Assessment and Plan Assessment and plan (1) Chronic anemia: Code(s): D64.9 - Anemia, unspecified Status: Acute Assessment and Plan: His anemia is probably not due to renal disease because his creatinine had been fairly normal until recently. Likewise I do not think it is due to chronic blood loss as his indices are normal, Though the fact that he has recently seen blood in his stools is certainly a factor (2) Hyponatremia: Code(s): E87.1 - Hypo-osmolality and hyponatremia Status: Acute Assessment and Plan: slowly his sodium is coming up. Today it is 129 (3) Ulcerative colitis: Code(s): K51.90 - Ulcerative colitis, unspecified, without complications Status: Acute Assessment and Plan: he has been chronically on gunter solids I would. This has been held due to his renal insufficiency. While he is here we will need to reach assess his colitis in view of the CT findings. He will need a colonoscopy when everybody is in agreement that he can tolerate the prep. He would not have any endoscopic procedures today or tomorrow so it is okay to resume his diet (4) Acute kidney failure: Code(s): N17.9 - Acute kidney failure, unspecified Status: Acute Assessment and Plan: Dr. Traore is following. It is thought that this is due to both volume depletion and recent diuretic use as well as his urinary retention GI Consult Note Consult date/time: 06/13/21 15:55 HPI: Danial Wilson is a 75 year old male who was admitted 2 days ago because he had not been able to void for over 12 hours. He had recent increase in his creatinine and I believe was told by Nephrology to discontinue med tabs along. He also has been found to have a low sodium which is being corrected. I believe she 1st he had some normal saline and then fluid restriction was begun. I am asked to see him because among other things he had not had a bowel movement for apparently 2 weeks. A plain x-ray 2 days ago showed constipation but a CT scan last night does not show excessive stool but does show thickening of the rectum and sigmoid. He does have a history of having had microscopic colitis and affect he has been on balsalazide 3 capsules twice a day per I had found a large polyp little over 2 years ago which could not be removed endoscopically. He then underwent right colon resection by Dr. Dias. He has been told to have a follow-up colonoscopy but has not scheduled that. Today he is having bowel movements which are soft and accompanied by dark blood. He thinks that he had had a bit of blood in his stools in the past few weeks but not much. He denies having abdominal pain he denies nausea vomiting or weight loss. He is certain that he is gaining weight and believes that most of it is water weight. He had had a great deal of edema recently in his legs. His urine output is currently being monitored as is his serum sodium and other electrolytes. . Review of Systems Review of Systems: All systems reviewed & are unremarkable except as noted in HPI and below PMFSH Past Medical History Medical History Anxiety Benign prostatic hyperplasia Chronic anemia Chronic obstructive pulmonary disease Compression fx, thoracic spine Gastroesophageal reflux disease History of esophageal dilatation Hyperlipidemia Hypertension Low serum vitamin D Obstructive sleep apnea treated with BiPAP Overactive bladder Pulmonary embolism (08/2018) Secondary erythrocytosis Related to COPD and obstructive sleep apnea. Previously received therapeutic phlebotomy. Tubulovillous adenoma of colon Ulcerative colitis Surgical History Surgical History History of bilateral cataract extraction History of cardiac catheterization History of colonoscopy with polypectomy History of cystoscopy History of decompression of ulnar nerve
[2021-06-13 16:29] LABS: IFOB Positive Control Positive; Immunochemical Fecal Occult Bl Positive (N)
[2021-06-13] MEDS: DOCUSATE SODIUM 100 MG CAPSULE PO (17:23)
[2021-06-13] MEDS: ASPIRIN 81 MG CHEWABLE TABLET PO (17:25)
--- NOTE | 2021-06-13 17:47 | PC.NURSE ---
Patient lost IV access at 1130. Unable to restart until 1400. IV vanc resumed. Zosyn started at 1730. Per pharmacy, skipping 1200 dose and running 1800 dose. PO meds held due to potential procedures; GI in around 1530 and said no procedures at this time. Okay to eat; po pills given at 1725.
[2021-06-13] MEDS: SODIUM CHLORIDE 0.9% IV 1,000 ML 75 ML IV CONT (20:00)
[2021-06-13] MEDS: clonazePAM (*CRX) 0.5 MG TABLET 2 MG PO (21:32)
[2021-06-13] MEDS: traZODone HCL 50 MG TABLET 200 MG PO (21:34)
[2021-06-13] MEDS: PRAMIPEXOLE 1 MG TABLET 2 MG PO (21:34)
[2021-06-14 04:44] VITALS: PULSE 66; O2SAT 97
[2021-06-14 06:00] VITALS: BP 96/69; PULSE 59; RESP 18; TEMP 36.6; O2SAT 99
[2021-06-14 07:28] LABS: Albumin Level 3.6 g/dL (3.5-5.1); Anion Gap 7 mmol/L (8-16); Blood Urea Nitrogen 53 mg/dL (9-20); Calcium 9.2 mg/dL (8.4-10.2); Carbon Dioxide 30 mmol/L (22-30); Chloride 88 mmol/L (98-107); Estimated CRCL calculation 23 ml/min; Estimated Glomerular Filt Rate 18; Glucose 102 mg/dL (65-110); Phosphorus 3.4 mg/dL (2.5-4.5); Potassium 3.6 mmol/L (3.4-5.0); Sodium 125 mmol/L (137-145)
[2021-06-14 08:00] VITALS: O2SAT 97
[2021-06-14 08:01] LABS: Glucose Point of Care 95 mg/dl (65-105)
--- NOTE | 2021-06-14 08:27 | WPDGIPROGNO ---
Progress Note: A&P Assessment and Plan (1) Chronic anemia: Code(s): D64.9 - Anemia, unspecified Status: Acute Assessment and Plan: His anemia is probably not due to renal disease because his creatinine had been fairly normal until recently. Likewise I do not think it is due to chronic blood loss as his indices are normal, Though the fact that he has recently seen blood in his stools is certainly a factor (2) Hyponatremia: Code(s): E87.1 - Hypo-osmolality and hyponatremia Status: Acute Assessment and Plan: slowly his sodium is coming up. Today it is 129 (3) Ulcerative colitis: Code(s): K51.90 - Ulcerative colitis, unspecified, without complications Status: Acute Assessment and Plan: he has been chronically on gunter solids I would. This has been held due to his renal insufficiency. While he is here we will need to reach assess his colitis in view of the CT findings. He will need a colonoscopy when everybody is in agreement that he can tolerate the prep. I spoke with Dr. Traore this morning. He states that the patient should be okay for colonoscopy. I will begin prep today for colonoscopy to be done tomorrow. (4) Acute kidney failure: Code(s): N17.9 - Acute kidney failure, unspecified Status: Acute Assessment and Plan: Dr. Traore is following. It is thought that this is due to both volume depletion and recent diuretic use as well as his urinary retention (5) Dysphagia: Code(s): R13.10 - Dysphagia, unspecified Status: Acute Assessment and Plan: he noted that food gets stuck at times when he is swallowing. Particularly meat in the lower substernal area. He will need to await for a bit or drink some water and it will finally pass. He has in the past had esophageal dilatation for a stricture. We will schedule him for EGD to be done tomorrow also. The procedures were discussed including the possibilities of bleeding or perforation with the need for surgery to correct complication Subjective Date/time seen: 06/14/21 08:27 he feels good this morning. No stool so far today. We discussed the fact that his CT scan suggests persistent colitis. I talked to Dr. Traore who states that the patient should be able to tolerate colonoscopy prep. Review of Systems Review of Systems: All systems reviewed & are unremarkable except as noted in HPI and below Exam Const: Nutritional Appearance: obese Orientation/consciousness: patient oriented x3 GI: GI Palp: No abdominal tenderness, Yes Soft to palpation and Yes No hepatosplenomegaly present Objective Data Vital Signs Vital Signs: Vital Signs - 24 hr 06/13/21 14:00 06/13/21 22:00 06/13/21 23:47 Temperature 37.1 C 37.4 C Pulse Rate 71 71 65 Respiratory Rate 16 18 Blood Pressure 108/40 L 104/57 L Pulse Oximetry 93 98 95 06/14/21 04:44 06/14/21 06:00 Temperature 36.6 C Pulse Rate 66 59 L Respiratory Rate 18 Blood Pressure 96/69 L Pulse Oximetry 97 99 Intake/Output Intake/Output: Intake & Output 06/11/21 06/12/21 06/13/21 06/14/21 23:59 23:59 23:59 23:59 Intake Total 4780 1000 850 Output Total 2050 2650 400 Balance 2730 -1650 450 Meds/Results Medications: Active Medications Generic Name Dose Route Start Last Admin Trade Name Sandra PRN Reason Stop Dose Admin Acetaminophen 650 mg 06/11/21 16:22 06/12/21 08:38 Acetaminophen 325 Mg Tablet PO 650 mg Q4H PRN Administration Mild Pain (1-3) or Fever Amlodipine Besylate 2.5 mg 06/12/21 09:00 06/13/21 17:22 Amlodipine Besylate 2.5 Mg Tablet PO Not Given DAILY MARTHA Aspirin 81 mg 06/12/21 09:00 06/13/21 17:25 Aspirin 81 Mg Chewable Tablet PO 07/12/21 08:59 81 mg DAILY MARTHA Administration Clonazepam 2 mg 06/12/21 21:00 06/13/21 21:32 Clonazepam (*Crx) 0.5 Mg Tablet PO 2 mg HS MARTHA Administration Docusate Sodium 100 mg 06/12/21 09:00 06/13/21 21:35 D
[2021-06-14 11:33] LABS: Glucose Point of Care 126 mg/dl (65-105)
[2021-06-14] MEDS: ROSUVASTATIN 10 MG TABLET 20 MG PO (12:39)
[2021-06-14] MEDS: DOCUSATE SODIUM 100 MG CAPSULE PO ×2 (12:39→21:23)
[2021-06-14] MEDS: ASPIRIN 81 MG CHEWABLE TABLET PO (12:39)
[2021-06-14] MEDS: amLODIPine BESYLATE 2.5 MG TABLET PO (12:39)
[2021-06-14] MEDS: HEPARIN SODIUM 5,000 UNITS/ML VIAL 5000 UNITS SUB-Q ×2 (12:39→21:22)
[2021-06-14] MEDS: CHOLECALCIFEROL 1,000 UNITS TABLET 5000 UNITS PO (12:39)
[2021-06-14] MEDS: polyethylene glycoL 3350 17 GM POWD.PACK PO (12:40)
[2021-06-14] MEDS: FAMOTIDINE 20 MG/2 ML VIAL IV PUSH ×2 (12:40→21:22)
[2021-06-14 12:41] LABS: Sodium 126 mmol/L (137-145)
--- NOTE | 2021-06-14 13:50 | PM.IMPN ---
Progress Note: A&P Assessment and Plan (1) Acute kidney injury: Code(s): N17.9 - Acute kidney failure, unspecified Status: Acute Assessment and Plan: Precipitating etiology is not entirely clear but is most likely related to a combination of over-diuresis and urinary retention. He has 1+ protein and 2+ blood on urine dipstick so nephritis could be a possibility as well though with his electrolytes it may very well be related to over diuresis. He was instructed by his slasher machine operator, Dr. Traore to hold his furosemide and metolazone and has been doing so for 4 days. Worsening acute non oliguric kidney injury. His urinary output has been in the 2-2.6 L range. Over the last 12 hours patient has only made 400 cc of urine. Monitor intake and output closely. Patient is not uremic. His electrolytes are within the normal range. There is no indication for renal replacement therapy. Follow-up with nephrology for a possible renal biopsy. Hold diuretics, hold benazepril Continue with cautious IV hydration with close monitoring of volume status and renal function. Haider catheter has been inserted for strict I/O. Monitor renal function closely. Renally dose medications and avoid nephrotoxins. Creatinine has been fluctuating 2.7->2.2->2.6->3.4. (2) Electrolyte abnormality: Code(s): E87.8 - Other disorders of electrolyte and fluid balance, not elsewhere classified Status: Acute Assessment and Plan: Including moderate hyponatremia (121), hypokalemia (3.1), and hypochloremia (78). Improving was cautious IV hydration Continue to monitor electrolytes Sodium improved to 129 with IV fluids. FENa is 1.1% (though he has only been off diuretics for 4 days). FEUrea is 32.2%. Repeat sodium this evening to ensure appropriate rate of correction Potassium normal at 3.9. Repeat BMP tomorrow. Continue to monitor electrolytes (3) Chronic anemia: Code(s): D64.9 - Anemia, unspecified Status: Acute Assessment and Plan: Hemoglobin and hematocrit are stable on review of previous labs. (4) Ulcerative colitis: Code(s): K51.90 - Ulcerative colitis, unspecified, without complications Status: Acute Assessment and Plan: No acute issues. Balsalazide is on hold as it has been implemented in renal failure, interstitial nephritis, and minimal change disease. (5) Hypertension: Code(s): I10 - Essential (primary) hypertension Status: Acute Assessment and Plan: Blood pressures were on low-end of normal today with last BP 96/69. Several antihypertensives on hold at this time as above. Continue to monitor BP trends. Hold amlodipine today. (6) Benign prostatic hyperplasia: Code(s): N40.0 - Benign prostatic hyperplasia without lower urinary tract symptoms Status: Acute Assessment and Plan: Continue Haider catheter. Will need to consider Haider catheter but will await for nephrology recommendations to allow for accurate I&O at this time. (7) Overactive bladder: Code(s): N32.81 - Overactive bladder Status: Acute Assessment and Plan: Oxybutynin and vibegron currently on hold given concerns for retention on arrival. (8) Obstructive sleep apnea treated with BiPAP: Code(s): G47.33 - Obstructive sleep apnea (adult) (pediatric) Status: Acute Assessment and Plan: Continue with BiPAP per is home parameters. (9) Constipation: Code(s): K59.00 - Constipation, unspecified Status: Acute Assessment and Plan: Patient had 2 large bowel movements on 06/13/2021. Reports no bowel movement for 15 days. Abdominal x-ray demonstrates moderate volume of stool. May be related to anticholinergic medication, which have now been placed on hold. Continue MiraLax and Colace. Will also administer Dulcolax suppository. Subjective Date/time seen: 06/14/21 11:50 S: Patient is examined at the beds
[2021-06-14 14:00] VITALS: BP 120/74; PULSE 66; RESP 20; O2SAT 93
--- NOTE | 2021-06-14 14:31 | P.PNNP_ITS ---
Progress Note: A&P Assessment and Plan (1) SHUBHAM (acute kidney injury): Code(s): N17.9 - Acute kidney failure, unspecified Status: Acute Assessment and Plan: * suspect due to volume depletion * this was likely worsened by previous diuretic use, urinary retention, and concurrent EDI-I use * slow improvement noted in creatinine but trend back up today!! * persaud catheter in place * resume gentle IVF hydration * follow repeat labs and UOP (2) Chronic kidney disease, stage 2 (mild): Code(s): N18.2 - Chronic kidney disease, stage 2 (mild) Status: Acute Assessment and Plan: * baseline creatinine runs ~ 1.1 - 1.4mg/dl * due to hypertension, vascular disease, and age-related change (3) Hyponatremia: Code(s): E87.1 - Hypo-osmolality and hyponatremia Status: Acute Assessment and Plan: * suspect hypovolemic hyponatremia * low urine sodium supports this * improvement in sodium noted since admission with IVFs -- will resume now * goal of therapy is a rate of change of 4 - 6meq/24hrs (and no more than 8meq) * follow trend of repeat sodium levels (4) Benign prostatic hyperplasia: Code(s): N40.0 - Benign prostatic hyperplasia without lower urinary tract symptoms Status: Acute Assessment and Plan: * persaud catheter in place * follow I/Os * voiding trial before discharge (5) KIRSTEN (obstructive sleep apnea): Code(s): G47.33 - Obstructive sleep apnea (adult) (pediatric) Status: Acute Assessment and Plan: * use home BiPAP nightly (6) Constipation: Code(s): K59.00 - Constipation, unspecified Status: Acute Assessment and Plan: * on bowel regimen * improving Will continue to follow. Subjective Date/time seen: 06/14/21 14:31 No acute complaints other than the generalized sensation of not feeling well but difficult for him to elaborate much further; noted plans for EGD/colonoscopy given GI recommendations given subsequent CT scan findings; no apparent issues/events overnight or this morning. Exam Narrative: General: WD/WN male in NAD Heart: normal S1 and S2; no rub Lungs: clear to auscultation Abdomen: soft, nontender, nondistended, positive bowel sounds Extremities: no cyanosis or clubbing; trace edema Skin: warm and dry Objective Data Vital Signs Vital Signs: Vital Signs Temp Pulse Resp BP Pulse Ox 06/14/21 14:00 66 20 120/74 93 06/14/21 08:00 97 06/14/21 06:00 36.6 C 59 L 18 96/69 L 99 06/14/21 04:44 66 97 06/13/21 23:47 65 95 06/13/21 22:00 37.4 C 71 18 104/57 L 98 Intake/Output Intake/Output: Intake & Output 06/11/21 06/12/21 06/13/21 06/14/21 23:59 23:59 23:59 23:59 Intake Total 4780 1000 2750 Output Total 2050 2650 850 Balance 2730 -1650 1900 Meds/Results Medications: Active Medications Generic Name Dose Route Start Last Admin Trade Name Freq PRN Reason Stop Dose Admin Acetaminophen 650 mg 06/11/21 16:22 06/12/21 08:38 Acetaminophen 325 Mg Tablet PO 650 mg Q4H PRN Administration Mild Pain (1-3) or Fever Amlodipine Besylate 2.5 mg 06/12/21 09:00 06/14/21 12:39 Amlodipine Besylate 2.5 Mg Tablet PO 2.5 mg
--- NOTE | 2021-06-14 14:31 | PM.PNNEP ---
Progress Note: A&P Assessment and Plan (1) SHUBHAM (acute kidney injury): Code(s): N17.9 - Acute kidney failure, unspecified Status: Acute Assessment and Plan: suspect due to volume depletion this was likely worsened by previous diuretic use, urinary retention, and concurrent EDI-I use slow improvement noted in creatinine but trend back up today!! persaud catheter in place resume gentle IVF hydration follow repeat labs and UOP (2) Chronic kidney disease, stage 2 (mild): Code(s): N18.2 - Chronic kidney disease, stage 2 (mild) Status: Acute Assessment and Plan: baseline creatinine runs ~ 1.1 - 1.4mg/dl due to hypertension, vascular disease, and age-related change (3) Hyponatremia: Code(s): E87.1 - Hypo-osmolality and hyponatremia Status: Acute Assessment and Plan: suspect hypovolemic hyponatremia low urine sodium supports this improvement in sodium noted since admission with IVFs -- will resume now goal of therapy is a rate of change of 4 - 6meq/24hrs (and no more than 8meq) follow trend of repeat sodium levels (4) Benign prostatic hyperplasia: Code(s): N40.0 - Benign prostatic hyperplasia without lower urinary tract symptoms Status: Acute Assessment and Plan: persaud catheter in place follow I/Os voiding trial before discharge (5) KIRSTEN (obstructive sleep apnea): Code(s): G47.33 - Obstructive sleep apnea (adult) (pediatric) Status: Acute Assessment and Plan: use home BiPAP nightly (6) Constipation: Code(s): K59.00 - Constipation, unspecified Status: Acute Assessment and Plan: on bowel regimen improving Will continue to follow. Subjective Date/time seen: 06/14/21 14:31 No acute complaints other than the generalized sensation of not feeling well but difficult for him to elaborate much further; noted plans for EGD/colonoscopy given GI recommendations given subsequent CT scan findings; no apparent issues/events overnight or this morning. Exam Narrative: General: WD/WN male in NAD Heart: normal S1 and S2; no rub Lungs: clear to auscultation Abdomen: soft, nontender, nondistended, positive bowel sounds Extremities: no cyanosis or clubbing; trace edema Skin: warm and dry Objective Data Vital Signs Vital Signs: Vital Signs Temp Pulse Resp BP Pulse Ox 06/14/21 14:00 66 20 120/74 93 06/14/21 08:00 97 06/14/21 06:00 36.6 C 59 L 18 96/69 L 99 06/14/21 04:44 66 97 06/13/21 23:47 65 95 06/13/21 22:00 37.4 C 71 18 104/57 L 98 Intake/Output Intake/Output: Intake & Output 06/11/21 06/12/21 06/13/21 06/14/21 23:59 23:59 23:59 23:59 Intake Total 4780 1000 2750 Output Total 2050 2650 850 Balance 2730 -1650 1900 Meds/Results Medications: Active Medications Generic Name Dose Route Start Last Admin Trade Name Sandra PRN Reason Stop Dose Admin Acetaminophen 650 mg 06/11/21 16:22 06/12/21 08:38 Acetaminophen 325 Mg Tablet PO 650 mg Q4H PRN Administration Mild Pain (1-3) or Fever Amlodipine Besylate 2.5 mg 06/12/21 09:00 06/14/21 12:39 Amlodipine Besylate 2.5 Mg Tablet PO 2.5 mg DAILY MARTHA Administration Aspirin 81 mg 06/12/21 09:00 06/14/21 12:39 Aspirin 81 Mg Chewable Tablet PO 07/12/21 08:59 81 mg DAILY MARTHA Administration Clonazepam 2 mg 06/12/21 21:00 06/13/21 21:32 Clonazepam (*Crx) 0.5 Mg Tablet PO 2 mg HS MARTHA Administration Docusate Sodium 100 mg 06/12/21 09:00 06/14/21 12:39 Docusate Sodium 100 Mg Capsule PO 100 mg Q12HR MARTHA Administration Famotidine 20 mg 06/11/21 21:00 06/14/21 12:40 Famotidine 20 Mg/2 Ml Vial IV PUSH 20 mg Q12HR MARTHA Administration Heparin Sodium (Porcine) 5,000 units 06/11/21 21:00 06/14/21 12:39 Heparin Sodium 5,000 Units/Ml Vial SUB-Q 5,000 units Q12HR MARTHA Administration Piperacillin Sod/Tazobactam Sod 2
--- NOTE | 2021-06-14 16:05 | WPDURCON ---
Assessment and Plan Assessment and plan (1) SHUBHAM (acute kidney injury): Code(s): N17.9 - Acute kidney failure, unspecified Status: Acute Assessment and Plan: Stable for him, there is no obstrtuction causing his SHUBHAM, no need for a stent. (2) Overactive bladder: Code(s): N32.81 - Overactive bladder Status: Acute Assessment and Plan: stop Oxybutynin and Gemtesa (3) Retention of urine: Code(s): R33.9 - Retention of urine, unspecified Status: Acute Assessment and Plan: Start Tamsulosin and do a voiding trial prior to discharge. Replace persaud if unable to urinate. Urology Consult Note HPI Date Seen: 06/14/21 Requesting Physician: Delores Steward PA-C Primary Care Provider: Lucio Oliveira MD Consult Narrative Narrative: Danial Wilson is a 75 year old male who presented to the ER with urinary retention 06/11/2021. He was having sudden difficulty with urination, hesitancy and straining. He is a patient of Dr. Ko and was on Gemtesa and Oxybutynin prior to the ER visit, which are now being held. He had a CT scan on 06/13/2021 which showed Bilateral stones that are non obstructive which was otherwise normal. He then had a RAFA on 06/13/2021 that shows no hydro and persaud balloon is in place within the bladder. We were consulted d/t his elevated creatinine and retention. He has an elevated WBC of 11.2 and his creatinine was 2.2 yesterday which has now risen to 3.4 today despite evidence of obstruction. He follows with Dr. Traore normally for CKD. The patient states that the Gemtesa and Oxybutynin resolved his OAB symptoms and he was very happy with the results. Review of Systems Cardiovascular: Cardiovascular: Denies chest pain Respiratory: Respiratory: Reports no additional respiratory complaints Gastrointestinal: Gastrointestinal: Denies abdominal pain, Denies nausea and Denies vomiting Genitourinary: Genitourinary: Denies hematuria, Denies dysuria, Denies flank pain, Reports urinary frequency, Reports urinary hesitancy, Reports urinary incontinence and Reports urinary urgency PMF Past Medical History Medical History Anxiety Benign prostatic hyperplasia Chronic anemia Chronic obstructive pulmonary disease Compression fx, thoracic spine Gastroesophageal reflux disease History of esophageal dilatation Hyperlipidemia Hypertension Low serum vitamin D Obstructive sleep apnea treated with BiPAP Overactive bladder Pulmonary embolism (08/2018) Secondary erythrocytosis Related to COPD and obstructive sleep apnea. Previously received therapeutic phlebotomy. Tubulovillous adenoma of colon Ulcerative colitis Surgical History Surgical History History of bilateral cataract extraction History of cardiac catheterization History of colonoscopy with polypectomy History of cystoscopy History of decompression of ulnar nerve Left elbow. History of dental surgery History of extraction of renal calculus History of right hemicolectomy (06/10/19) Benign tubulovillous adenoma. Hx of transurethral resection of prostate Family History Family History Father Hypertension Malignant neoplasm of prostate Sibling Diabetes mellitus Family history of cardiovascular disease Malignant neoplasm of prostate Mother Family history of rheumatic fever Heart disease Sibling Cancer Heart transplant recipient Other Family history of coronary artery disease Family history of lung cancer Social History Social History Social History: Surrogate decision maker: Akua Wilson, spouse. Code status: Full code. Smoking status: Never smoker Second hand tobacco smoke exposure: Yes Alcohol intake: never Substance use: never Substa
[2021-06-14 16:09] LABS: Glucose Point of Care 117 mg/dl (65-105)
[2021-06-14] MEDS: SODIUM CHLORIDE 0.9% IV 1,000 ML 75 ML IV CONT (18:35)
[2021-06-14] MEDS: PEG (High)/E-LYTE SOLN 4,000 ML BTL 3000 ML PO (18:48)
[2021-06-14] MEDS: WATER FOR IRRIGATION, STERILE 1,000 ML BOTTLE 1000 ML (18:49)
[2021-06-14 19:38] LABS: Albumin Level 3.9 g/dL (3.5-5.1); Anion Gap 10 mmol/L (8-16); Blood Urea Nitrogen 51 mg/dL (9-20); Calcium 8.9 mg/dL (8.4-10.2); Carbon Dioxide 30 mmol/L (22-30); Chloride 85 mmol/L (98-107); Estimated CRCL calculation 25 ml/min; Estimated Glomerular Filt Rate 19; Glucose 118 mg/dL (65-110); Phosphorus 3.4 mg/dL (2.5-4.5); Potassium 3.4 mmol/L (3.4-5.0); Sodium 125 mmol/L (137-145)
[2021-06-14 20:00] VITALS: O2SAT 97
[2021-06-14] MEDS: clonazePAM (*CRX) 0.5 MG TABLET 2 MG PO (21:22)
[2021-06-14] MEDS: traZODone HCL 50 MG TABLET 200 MG PO (21:23)
[2021-06-14] MEDS: PRAMIPEXOLE 1 MG TABLET 2 MG PO (21:23)
[2021-06-14 22:14] VITALS: BP 153/124; PULSE 80; RESP 18; TEMP 36.4; O2SAT 99
[2021-06-15] VITALS (12 sets, daily range): BP systolic 61–126; BP diastolic 23–85; PULSE 54–85; RESP 12–32; TEMP 36.3–36.9; O2SAT 92–99
[2021-06-15 06:29] LABS: Hematocrit 30.5 % (42.0-52.0); Hemoglobin 10.7 g/dL (14.0-18.0); Mean Corpuscular HGB Conc 35.1 g/dl (32-36); Mean Corpuscular Hemoglobin 32.5 pg (26-34); Mean Corpuscular Volume 92.7 fl (80-100); Mean Platelet Volume 9.6 fl (7.4-10.4); Platelet Count Result 260 k/mm3 (150-375); Red Blood Count 3.29 M/mm3 (4.6-6.20); Red Cell Distribution Width 12.4 % (11.5-14.5); White Blood Count 9.5 K/mm3 (4.5-10.0)
[2021-06-15 08:12] LABS: Glucose Point of Care 108 mg/dl (65-105)
[2021-06-15 08:47] LABS: Albumin Level 2.9 g/dL (3.5-5.1); Anion Gap 9 mmol/L (8-16); Blood Urea Nitrogen 49 mg/dL (9-20); Calcium 8.8 mg/dL (8.4-10.2); Carbon Dioxide 27 mmol/L (22-30); Chloride 92 mmol/L (98-107); Estimated CRCL calculation 28 ml/min; Estimated Glomerular Filt Rate 22; Glucose 98 mg/dL (65-110); Phosphorus 3.7 mg/dL (2.5-4.5); Potassium 3.3 mmol/L (3.4-5.0); Sodium 128 mmol/L (137-145)
[2021-06-15 09:02] LABS: Osmolality, Urine 197 mOsm/kg (50-1200)
[2021-06-15] MEDS: FAMOTIDINE 20 MG/2 ML VIAL IV PUSH ×2 (10:03→20:37)
[2021-06-15] MEDS: SODIUM CHLORIDE 0.9% IV 1,000 ML 75 ML IV CONT (11:00)
--- NOTE | 2021-06-15 11:38 | PCOTNOTE ---
Attempted to see patient this am, however patient going for testing at this time.
--- NOTE | 2021-06-15 11:46 | PC.NURSE ---
To GI lab per jessie. at bedside.
[2021-06-15] MEDS: LACTATED RINGERS 1,000 ML 150 ML IV CONT (13:07)
--- NOTE | 2021-06-15 13:07 | WPDANESEPPF ---
Anes - Initial Pre Proc Eval Procedure: Operation Date: 06/15/21 13:30 Proposed Procedures p Esophagogastroduodenoscopy & Colonoscopy - Ananda Guevara MD Date/Time: 06/15/21 13:07 Surgeon: Delores Steward PA-C Pre Op Diagnosis: hyponatremia/hypokalemia/duc Patient Data Age: 75 Gender: M Height: 1.75 m Weight: 134.9 kg Last Vital Signs Temp 98.2 F 06/15/21 12:01 Pulse 68 06/15/21 12:01 Resp 20 06/15/21 12:01 BP 110/41 L 06/15/21 12:01 Pulse Ox 94 06/15/21 12:01 Allergies Allergy/AdvReac Type Severity Reaction Status Date / Time codeine AdvReac Mild CONSTIPATIO Verified 06/15/21 11:58 N methylprednisolone AdvReac Mild Vomiting Verified 04/19/21 10:57 prednisone AdvReac Unknown Vomiting Verified 06/15/21 11:58 Home Medications Medication Instructions Recorded Confirmed Type clonazepam 2 mg PO HS 05/30/19 06/11/21 History guaifenesin [Mucinex] 600 mg PO DAILY 05/30/19 06/11/21 History lysine HCl 1,000 mg PO DAILY 05/30/19 06/11/21 History multivitamin [Multiple Vitamins] 1 tablet PO DAILY 05/30/19 06/11/21 History pramipexole 2 mg HS 05/30/19 06/11/21 History ferrous sulfate 325 mg (65 mg 325 mg PO DAILY #60 tablet 12/16/19 06/11/21 Rx iron) tablet amlodipine 2.5 mg tablet 2.5 mg PO DAILY #90 tablet 04/27/20 06/11/21 Rx benazepril 40 mg tablet 40 mg PO DAILY #90 tablet 04/27/20 06/11/21 Rx furosemide 40 mg tablet 40 mg PO DAILY #90 tablet 04/27/20 06/11/21 Rx potassium chloride 20 mEq 20 meq PO DAILY #90 tablet 04/27/20 06/11/21 Rx tablet,extended release(part/cryst) rosuvastatin 20 mg tablet 20 mg PO DAILY #90 tablet 04/27/20 06/11/21 Rx omeprazole 20 mg capsule,delayed 20 mg PO DAILY #90 cap 04/29/20 06/11/21 Rx release oxybutynin chloride 15 mg 15 mg PO DAILY 04/11/21 06/11/21 History tablet,extended release 24 hr vibegron 75 mg tablet 75 mg PO DAILY 04/11/21 06/11/21 History cholecalciferol (vitamin D3) 100 5,000 unit PO DAILY cap 04/18/21 06/11/21 History mcg (4,000 unit) capsule balsalazide 750 mg capsule 2,250 mg PO BID #540 cap 04/28/21 06/11/21 Rx metolazone 5 mg tablet 5 mg PO DAILY #90 tablet 05/26/21 06/11/21 Rx aspirin [Adult Low Dose Aspirin] 81 mg PO DAILY 06/11/21 06/11/21 History trazodone 200 mg PO HS 06/11/21 06/11/21 History Laboratory Tests 06/11/21 06/11/21 06/14/21 20:46 22:03 16:04 WBC RBC Hgb Hct MCV MCH MCHC RDW Plt Count MPV Sodium Potassium Chloride Carbon Dioxide Anion Gap BUN Creatinine Estim Creat Clear Calc Estimated GFR Glucose POC Capillary Glucose 117 mg/dl H mg/dl (65-105) Serum Osmolality 266 mOsm/kg L mOsm/kg (278-305) Calcium Phosphorus Albumin Urine Osmolality 197 mOsm/kg mOsm/kg (50-1200) 06/14/21 06/15/21 06/15/21 19:20 06:07 07:40 WBC 9.5 K/mm3 K/mm3 (4.5-10.0) RBC 3.29 M/mm3 L M/mm3 (4.6-6.20) Hgb 10.7 g/dL L g/dL (14.0-18.0) Hct 30.5 % L % (42.0-52.0) MCV 92.7 fl fl (80-100) MCH 32.5 pg pg (26-34) MCHC 35.1 g/dl g/dl (32-36) RDW 12.4 % % (11.5-14.5) Plt Count 260 k/mm3 k/mm3 (150-375) MPV 9.6 fl fl (7.4-10.4) Sodium 125 mmol/L L mmol/L 128 mmol/L L mmol/L (137-145) (137-145) Potassium 3.4 mmol/L mmol/L 3.3 mmol/L L mmol/L (3.4-5.0) (3.4-5.0) Chloride 85 mmol/L L mmol/L 92 mmol/L L mmol/L (98-107) (98-107) Carbon Dioxide 30 mmol/L mmol/L 27 mmol/L mmol/L (22-30) (22-30) Anion Gap 10 mmol/L mmol/L 9 mmol/L mmol/L (8-16) (8-16) BUN 51 mg/dL H mg/dL 49 mg/dL H mg/dL (9-20) (9-20) Creatinine 3.20 mg/dL H mg
--- NOTE | 2021-06-15 13:27 | PCOTNOTE ---
Attempted to see pt. for treatmetn. Pt. away from room for colonoscopy
--- NOTE | 2021-06-15 13:33 | SUR.OPER ---
EGD ended at 1326 Colonoscopy started at 1333
--- NOTE | 2021-06-15 14:43 | PM.IMPN ---
Progress Note: A&P Assessment and Plan (1) Acute kidney injury: Code(s): N17.9 - Acute kidney failure, unspecified Status: Acute Assessment and Plan: . Worsening acute non oliguric kidney injury. His urinary output has been in the 2-2.6 L range. Over the last 12 hours patient has only made 400 cc of urine. Monitor intake and output closely. Patient is not uremic. His electrolytes are within the normal range. There is no indication for renal replacement therapy. Follow-up with nephrology for a possible renal biopsy. Hold diuretics, hold benazepril Continue with cautious IV hydration with close monitoring of volume status and renal function. Haider catheter has been inserted for strict I/O. Monitor renal function closely. Renally dose medications and avoid nephrotoxins. Creatinine has been fluctuating 2.7->2.2->2.6->2.8 (2) Electrolyte abnormality: Code(s): E87.8 - Other disorders of electrolyte and fluid balance, not elsewhere classified Status: Acute Assessment and Plan: Including moderate hyponatremia (121), hypokalemia (3.1), and hypochloremia (78). Improving was cautious IV hydration Continue to monitor electrolytes Sodium improved to 129 with IV fluids. FENa is 1.1% (though he has only been off diuretics for 4 days). FEUrea is 32.2%. Repeat sodium this evening to ensure appropriate rate of correction Potassium normal at 3.9. Repeat BMP tomorrow. Continue to monitor electrolytes (3) Chronic anemia: Code(s): D64.9 - Anemia, unspecified Status: Acute Assessment and Plan: Hemoglobin and hematocrit are stable on review of previous labs. (4) Ulcerative colitis: Code(s): K51.90 - Ulcerative colitis, unspecified, without complications Status: Acute Assessment and Plan: Pt going for colonoscopy today, CT scan suggests persistent colitis (5) Hypertension: Code(s): I10 - Essential (primary) hypertension Status: Acute Assessment and Plan: continue to watch has been running low (6) Benign prostatic hyperplasia: Code(s): N40.0 - Benign prostatic hyperplasia without lower urinary tract symptoms Status: Acute Assessment and Plan: Continue Haider catheter. Will need to consider Haider catheter but will await for nephrology recommendations to allow for accurate I&O at this time. (7) Overactive bladder: Code(s): N32.81 - Overactive bladder Status: Acute Assessment and Plan: Oxybutynin and vibegron currently on hold given concerns for retention on arrival. (8) Obstructive sleep apnea treated with BiPAP: Code(s): G47.33 - Obstructive sleep apnea (adult) (pediatric) Status: Acute Assessment and Plan: Continue with BiPAP per is home parameters. (9) Constipation: Code(s): K59.00 - Constipation, unspecified Status: Acute Assessment and Plan: Patient had 2 large bowel movements on 06/13/2021. Subjective Date/time seen: 06/15/21 14:43 Interval history: Danial Wilson is a 75-year-old male with a history of BPH s/p TURP, overactive bladder, COPD, CKD stage 3, hypertension, hyperlipidemia, KIRSTEN on BiPAP, and several other medical problems who is seen in follow-up for urinary retention and acute kidney injury. Admitted with BPH, SHUBHAM, overactive bladder and UC. Pt having CT scan suggests persistent colitis, pt to have cOLONSCOPY TODAY under GI Review of Systems Review of Systems: All systems reviewed & are unremarkable except as noted in HPI and below Exam Narrative: Overweight chronically ill Neuro: no focal neuro deficits noted HEENMT: normocephalic, atraumatic, EOMI, sclerae anicteric, moist oral mucosa Neck: supple, no lymphadenopathy Respiratory: clear to auscultation bilaterally, nonlabored breathing Cardio: regular rate, regular rhythm with S1-S2 Abdomen: protuberant, normoactive bowel sounds, soft, sup
--- NOTE | 2021-06-15 15:05 | PC.NURSE ---
Return from GI lab around 1450. at bedside.
--- NOTE | 2021-06-15 15:14 | PM.PNNEP ---
Progress Note: A&P Assessment and Plan (1) SHUBHAM (acute kidney injury): Code(s): N17.9 - Acute kidney failure, unspecified Status: Acute Assessment and Plan: improving suspect due to volume depletion this was likely worsened by previous diuretic use, urinary retention, and concurrent EDI-I use slow improvement noted in creatinine but trend back up today!! persaud catheter in place continue gentle IVF hydration follow repeat labs and UOP (2) Chronic kidney disease, stage 2 (mild): Code(s): N18.2 - Chronic kidney disease, stage 2 (mild) Status: Acute Assessment and Plan: baseline creatinine runs ~ 1.1 - 1.4mg/dl due to hypertension, vascular disease, and age-related change (3) Hyponatremia: Code(s): E87.1 - Hypo-osmolality and hyponatremia Status: Acute Assessment and Plan: improving suspect hypovolemic hyponatremia low urine sodium supports this improvement in sodium noted since admission with IVFs -- will resume now goal of therapy is a rate of change of 4 - 6meq/24hrs (and no more than 8meq) follow trend of repeat sodium levels (4) Benign prostatic hyperplasia: Code(s): N40.0 - Benign prostatic hyperplasia without lower urinary tract symptoms Status: Acute Assessment and Plan: persaud catheter in place follow I/Os voiding trial before discharge (5) KIRSTEN (obstructive sleep apnea): Code(s): G47.33 - Obstructive sleep apnea (adult) (pediatric) Status: Acute Assessment and Plan: use home BiPAP nightly (6) Constipation: Code(s): K59.00 - Constipation, unspecified Status: Acute Assessment and Plan: on bowel regimen improving Will continue to follow. Subjective Date/time seen: 06/15/21 15:14 S/P EGD and colonoscopy earlier today -- findings of esophageal stricture and diverticulosis with colitis/proctitis; reasonable urine output and sodium as well as renal function improving; no new issues/events overnight or earlier this morning. Exam Narrative: General: WD/WN male in NAD Heart: normal S1 and S2; no rub Lungs: clear to auscultation Abdomen: soft, nontender, nondistended, positive bowel sounds Extremities: no cyanosis or clubbing; trace edema Skin: warm and intact Objective Data Vital Signs Vital Signs: Vital Signs Temp Pulse Resp BP Pulse Ox 06/15/21 14:21 67 32 H 96/77 L 99 06/15/21 14:05 68 24 H 109/83 92 06/15/21 14:00 36.3 C L 59 L 12 126/38 L 96 06/15/21 13:57 62 27 H 61/23 L 92 06/15/21 13:50 54 L 23 H 67/37 L 92 06/15/21 12:01 36.8 C 68 20 110/41 L 94 06/15/21 10:34 120/49 L 06/15/21 06:18 36.4 C 85 18 98/85 L 95 06/15/21 06:10 60 97 06/15/21 00:36 62 94 06/15/21 00:18 65 92 06/14/21 22:14 36.4 C L 80 18 153/124 H 99 06/14/21 20:00 97 Intake/Output Intake/Output: Intake & Output 06/12/21 06/13/21 06/14/21 06/15/21 23:59 23:59 23:59 23:59 Intake Total 4780 1000 4690 1250 Output Total 2050 2650 850 1000 Balance 2730 -1650 3840 250 Meds/Results Medications: Active Medications Generic Name Dose Route Start Last Admin Trade Name Sandra PRN Reason Stop Dose Admin Acetaminophen 650 mg 06/11/21 16:22 06/12/21 08:38 Acetaminophen 325 Mg Tablet PO 650 mg Q4H PRN Administration Mild Pain (1-3) or Fever Amlodipine Besylate 2.5 mg 06/12/21 09:00 06/14/21 12:39 Amlodipine Besylate 2.5 Mg Tablet PO 2.5 mg DAILY MARTHA Administration Aspirin 81 mg 06/12/21 09:00 06/15/21 16:23 Aspirin 81 Mg Chewable Tablet PO 07/12/21 08:59 Not Given DAILY MARTHA Clonazepam 2 mg 06/12/21 21:00 06/14/21 21:22 Clonazepam (*Crx) 0.5 Mg Tablet PO 2 mg HS MARTHA Administration Docusate Sodium 100 mg 06/12/21 09:00 06/15/21 16:23 Docusate Sodium 100 Mg Capsule PO Not Given Q12HR MARTHA Famotidine 20 mg 06/11/21 21:00 06/15/21 10
--- NOTE | 2021-06-15 15:14 | P.PNNP_ITS ---
Progress Note: A&P Assessment and Plan (1) SHUBHAM (acute kidney injury): Code(s): N17.9 - Acute kidney failure, unspecified Status: Acute Assessment and Plan: * improving * suspect due to volume depletion * this was likely worsened by previous diuretic use, urinary retention, and concurrent EDI-I use * slow improvement noted in creatinine but trend back up today!! * persaud catheter in place * continue gentle IVF hydration * follow repeat labs and UOP (2) Chronic kidney disease, stage 2 (mild): Code(s): N18.2 - Chronic kidney disease, stage 2 (mild) Status: Acute Assessment and Plan: * baseline creatinine runs ~ 1.1 - 1.4mg/dl * due to hypertension, vascular disease, and age-related change (3) Hyponatremia: Code(s): E87.1 - Hypo-osmolality and hyponatremia Status: Acute Assessment and Plan: * improving * suspect hypovolemic hyponatremia * low urine sodium supports this * improvement in sodium noted since admission with IVFs -- will resume now * goal of therapy is a rate of change of 4 - 6meq/24hrs (and no more than 8meq) * follow trend of repeat sodium levels (4) Benign prostatic hyperplasia: Code(s): N40.0 - Benign prostatic hyperplasia without lower urinary tract symptoms Status: Acute Assessment and Plan: * persaud catheter in place * follow I/Os * voiding trial before discharge (5) KIRSTEN (obstructive sleep apnea): Code(s): G47.33 - Obstructive sleep apnea (adult) (pediatric) Status: Acute Assessment and Plan: * use home BiPAP nightly (6) Constipation: Code(s): K59.00 - Constipation, unspecified Status: Acute Assessment and Plan: * on bowel regimen * improving Will continue to follow. Subjective Date/time seen: 06/15/21 15:14 S/P EGD and colonoscopy earlier today -- findings of esophageal stricture and diverticulosis with colitis/proctitis; reasonable urine output and sodium as well as renal function improving; no new issues/events overnight or earlier this morning. Exam Narrative: General: WD/WN male in NAD Heart: normal S1 and S2; no rub Lungs: clear to auscultation Abdomen: soft, nontender, nondistended, positive bowel sounds Extremities: no cyanosis or clubbing; trace edema Skin: warm and intact Objective Data Vital Signs Vital Signs: Vital Signs Temp Pulse Resp BP Pulse Ox 06/15/21 14:21 67 32 H 96/77 L 99 06/15/21 14:05 68 24 H 109/83 92 06/15/21 14:00 36.3 C L 59 L 12 126/38 L 96 06/15/21 13:57 62 27 H 61/23 L 92 06/15/21 13:50 54 L 23 H 67/37 L 92 06/15/21 12:01 36.8 C 68 20 110/41 L 94 06/15/21 10:34 120/49 L 06/15/21 06:18 36.4 C 85 18 98/85 L 95 06/15/21 06:10 60 97 06/15/21 00:36 62 94 06/15/21 00:18 65 92 06/14/21 22:14 36.4 C L 80 18 153/124 H 99 06/14/21 20:00 97 Intake/Output Intake/Output: Intake & Output 06/12/21 06/13/21 06/14/21 06/15/21 23:59 23:59 23:59 23:59 Intake Total 4780 1000 4690 1250 Output Total 2050 2650 850 1000 Balance 0000 -1650 3840 250 Meds/Results Medications: Active Medications Generic Name Dose Route Start Last Admin
[2021-06-15] MEDS: MESALAMINE 1,000 MG SUPP.RECT 1000 MG RECTAL (18:19)
[2021-06-15] MEDS: clonazePAM (*CRX) 0.5 MG TABLET 2 MG PO (20:36)
[2021-06-15] MEDS: HEPARIN SODIUM 5,000 UNITS/ML VIAL 5000 UNITS SUB-Q (20:37)
[2021-06-15] MEDS: traZODone HCL 50 MG TABLET 200 MG PO (20:37)
[2021-06-15] MEDS: DOCUSATE SODIUM 100 MG CAPSULE PO (20:37)
[2021-06-15] MEDS: PRAMIPEXOLE 1 MG TABLET 2 MG PO (20:38)
[2021-06-16] VITALS: PULSE 64; O2SAT 96
[2021-06-16] MEDS: SODIUM CHLORIDE 0.9% IV 1,000 ML 75 ML IV CONT (01:19)
[2021-06-16 02:56] VITALS: PULSE 68; O2SAT 96
[2021-06-16 06:00] VITALS: BP 114/52; PULSE 75; RESP 20; TEMP 36.4; O2SAT 98
[2021-06-16 07:04] LABS: Albumin Level 3.3 g/dL (3.5-5.1); Anion Gap 6 mmol/L (8-16); Blood Urea Nitrogen 33 mg/dL (9-20); Calcium 9.1 mg/dL (8.4-10.2); Carbon Dioxide 31 mmol/L (22-30); Chloride 96 mmol/L (98-107); Estimated CRCL calculation 37 ml/min; Estimated Glomerular Filt Rate 31; Glucose 95 mg/dL (65-110); Phosphorus 3.2 mg/dL (2.5-4.5); Potassium 3.3 mmol/L (3.4-5.0); Sodium 133 mmol/L (137-145)
[2021-06-16 07:19] LABS: Vancomycin Trough 11.4 ug/mL (10.0-20.0)
[2021-06-16 08:04] LABS: Hematocrit 31.4 % (42.0-52.0); Hemoglobin 10.8 g/dL (14.0-18.0); Mean Corpuscular HGB Conc 34.4 g/dl (32-36); Mean Corpuscular Hemoglobin 32.7 pg (26-34); Mean Corpuscular Volume 95.2 fl (80-100); Mean Platelet Volume 9.6 fl (7.4-10.4); Platelet Count Result 269 k/mm3 (150-375); Red Cell Distribution Width 12.4 % (11.5-14.5); White Blood Count 7.6 K/mm3 (4.5-10.0)
[2021-06-16] MEDS: ROSUVASTATIN 10 MG TABLET 20 MG PO (08:33)
[2021-06-16] MEDS: ASPIRIN 81 MG CHEWABLE TABLET PO (08:34)
[2021-06-16] MEDS: HEPARIN SODIUM 5,000 UNITS/ML VIAL 5000 UNITS SUB-Q ×2 (08:34→21:28)
[2021-06-16] MEDS: TAMSULOSIN HCL 0.4 MG CAPSULE PO (08:34)
[2021-06-16] MEDS: polyethylene glycoL 3350 17 GM POWD.PACK PO (08:35)
[2021-06-16] MEDS: FAMOTIDINE 20 MG/2 ML VIAL IV PUSH ×2 (08:35→21:28)
[2021-06-16] MEDS: DOCUSATE SODIUM 100 MG CAPSULE PO ×2 (08:35→21:27)
[2021-06-16] MEDS: MESALAMINE 1,000 MG SUPP.RECT 1000 MG RECTAL ×2 (08:35→17:10)
[2021-06-16] MEDS: CHOLECALCIFEROL 1,000 UNITS TABLET 5000 UNITS PO (08:35)
--- NOTE | 2021-06-16 11:22 | PM.IMPN ---
Progress Note: A&P Assessment and Plan (1) Acute kidney injury: Code(s): N17.9 - Acute kidney failure, unspecified Status: Acute Assessment and Plan: . Worsening acute non oliguric kidney injury. His urinary output has been in the 2-2.6 L range. Over the last 12 hours patient has only made 400 cc of urine. Monitor intake and output closely. Patient is not uremic. His electrolytes are within the normal range. There is no indication for renal replacement therapy. Follow-up with nephrology for a possible renal biopsy. Hold diuretics, hold benazepril Continue with cautious IV hydration with close monitoring of volume status and renal function. Haider catheter has been inserted for strict I/O. Monitor renal function closely. Renally dose medications and avoid nephrotoxins. Creatinine has been fluctuating 2.7->2.2->2.6->2.8 (2) Electrolyte abnormality: Code(s): E87.8 - Other disorders of electrolyte and fluid balance, not elsewhere classified Status: Acute Assessment and Plan: Including moderate hyponatremia (121), hypokalemia (3.1), and hypochloremia (78). Improving was cautious IV hydration Continue to monitor electrolytes Sodium improved to 129 with IV fluids. FENa is 1.1% (though he has only been off diuretics for 4 days). FEUrea is 32.2%. Repeat sodium this evening to ensure appropriate rate of correction Potassium normal at 3.9. Repeat BMP tomorrow. Continue to monitor electrolytes (3) Chronic anemia: Code(s): D64.9 - Anemia, unspecified Status: Acute Assessment and Plan: Hemoglobin and hematocrit are stable on review of previous labs. (4) Ulcerative colitis: Code(s): K51.90 - Ulcerative colitis, unspecified, without complications Status: Acute Assessment and Plan: Pt going for colonoscopy today, CT scan suggests persistent colitis, pt is on iv zosyn and iv fluids (5) Hypertension: Code(s): I10 - Essential (primary) hypertension Status: Acute Assessment and Plan: Continue to watch has been running low better on fluids (6) Benign prostatic hyperplasia: Code(s): N40.0 - Benign prostatic hyperplasia without lower urinary tract symptoms Status: Acute Assessment and Plan: Continue Haider catheter. Will need to consider Haider catheter but will await for nephrology recommendations to allow for accurate I&O at this time. (7) Overactive bladder: Code(s): N32.81 - Overactive bladder Status: Acute Assessment and Plan: Oxybutynin and vibegron currently on hold given concerns for retention on arrival. (8) Obstructive sleep apnea treated with BiPAP: Code(s): G47.33 - Obstructive sleep apnea (adult) (pediatric) Status: Acute Assessment and Plan: Continue with BiPAP per is home parameters. (9) Constipation: Code(s): K59.00 - Constipation, unspecified Status: Acute Assessment and Plan: Patient had 2 large bowel movements on 06/13/2021. (10) Dysphagia: Code(s): R13.10 - Dysphagia, unspecified Status: Acute Assessment and Plan: Pt may benefit from EGD Subjective Date/time seen: 06/16/21 11:22 Interval history: Danial Wilson is a 75-year-old male with a history of BPH s/p TURP, overactive bladder, COPD, CKD stage 3, hypertension, hyperlipidemia, KIRSTEN on BiPAP, and several other medical problems who is seen in follow-up for urinary retention and acute kidney injury. Admitted with BPH, SHUBHAM, overactive bladder and UC. Pt having CT scan suggests persistent colitis. Pt had his colonoscopy yesterday showing proctitis. Review of Systems Review of Systems: All systems reviewed & are unremarkable except as noted in HPI and below Exam Narrative: Overweight chronically ill Neuro: no focal neuro deficits noted HEENMT: normocephalic, atraumatic, EOMI, sclerae anicteric, moist oral mucosa Ne
--- NOTE | 2021-06-16 12:29 | WPDANESPN ---
Anes - Prog Note Post-Op Date/Time: 06/16/21 12:29 Cardiovascular status: normal Respiratory status: normal Airway patency: baseline Mental status: baseline Post-Op hydration status: normal Vital Signs: Last Vital Signs Temp 36.4 C 06/16/21 06:00 Pulse 75 06/16/21 06:00 Resp 20 06/16/21 06:00 BP 114/52 L 06/16/21 06:00 Pulse Ox 98 06/16/21 06:00 Pain Score (VAS): 0 I/O: Intake & Output 06/15/21 06/16/21 06/16/21 23:59 07:59 15:59 Intake Total 490 1050 120 Output Total 3750 Balance -3260 1050 120 Laboratory Tests 06/16/21 07:37 06/16/21 06:11 06/16/21 06/16/21 06/16/21 06:11 06:12 07:37 WBC 7.6 RBC 3.30 L Hgb 10.8 L Hct 31.4 L MCV 95.2 MCH 32.7 MCHC 34.4 RDW 12.4 Plt Count 269 MPV 9.6 Sodium 133 L Potassium 3.3 L Chloride 96 L Carbon Dioxide 31 H Anion Gap 6 L BUN 33 H D Creatinine 2.10 H Estim Creat Clear Calc 37 Estimated GFR 31 L Glucose 95 Calcium 9.1 Phosphorus 3.2 Albumin 3.3 L Vancomycin Trough 11.4 Post-procedural complaints: none Patient Feedback: Patient satisfied with anesthetic care.
[2021-06-16 14:00] VITALS: BP 87/76; PULSE 79; RESP 16; TEMP 36.8; O2SAT 97
[2021-06-16] MEDS: POTASSIUM CHLORIDE 20 MEQ PACKET (FOR LIQUID) 40 MEQ PO (17:11)
[2021-06-16 21:00] VITALS: PULSE 60; O2SAT 96
[2021-06-16] MEDS: traZODone HCL 50 MG TABLET 200 MG PO (21:27)
[2021-06-16] MEDS: PRAMIPEXOLE 1 MG TABLET 2 MG PO (21:27)
[2021-06-16 22:00] VITALS: BP 122/64; PULSE 67; RESP 20; TEMP 37.3; O2SAT 94
[2021-06-17] VITALS (7 sets, daily range): BP systolic 115–142; BP diastolic 57–65; PULSE 52–67; RESP 18–24; TEMP 36.8–37.6; O2SAT 94–97
[2021-06-17] MEDS: SODIUM CHLORIDE 0.9% IV 1,000 ML 75 ML IV CONT (05:58)
[2021-06-17 06:18] LABS: Hematocrit 31.7 % (42.0-52.0); Hemoglobin 10.8 g/dL (14.0-18.0); Mean Corpuscular HGB Conc 34.1 g/dl (32-36); Mean Corpuscular Hemoglobin 32.3 pg (26-34); Mean Corpuscular Volume 94.9 fl (80-100); Mean Platelet Volume 9.1 fl (7.4-10.4); Platelet Count Result 276 k/mm3 (150-375); Red Blood Count 3.34 M/mm3 (4.6-6.20); Red Cell Distribution Width 12.4 % (11.5-14.5); White Blood Count 6.9 K/mm3 (4.5-10.0)
[2021-06-17 06:28] LABS: Albumin Level 3.1 g/dL (3.5-5.1); Anion Gap 5 mmol/L (8-16); Blood Urea Nitrogen 18 mg/dL (9-20); Calcium 9.4 mg/dL (8.4-10.2); Carbon Dioxide 30 mmol/L (22-30); Chloride 100 mmol/L (98-107); Estimated CRCL calculation 48 ml/min; Estimated Glomerular Filt Rate 42; Glucose 100 mg/dL (65-110); Potassium 3.9 mmol/L (3.4-5.0); Sodium 135 mmol/L (137-145)
[2021-06-17] MEDS: ROSUVASTATIN 10 MG TABLET 20 MG PO (08:23)
[2021-06-17] MEDS: CHOLECALCIFEROL 1,000 UNITS TABLET 5000 UNITS PO (08:23)
[2021-06-17] MEDS: TAMSULOSIN HCL 0.4 MG CAPSULE PO (08:23)
[2021-06-17] MEDS: DOCUSATE SODIUM 100 MG CAPSULE PO ×2 (08:23→21:44)
[2021-06-17] MEDS: ASPIRIN 81 MG CHEWABLE TABLET PO (08:23)
[2021-06-17] MEDS: HEPARIN SODIUM 5,000 UNITS/ML VIAL 5000 UNITS SUB-Q ×2 (08:24→21:45)
[2021-06-17] MEDS: FAMOTIDINE 20 MG/2 ML VIAL IV PUSH ×2 (08:24→21:44)
[2021-06-17] MEDS: MESALAMINE 1,000 MG SUPP.RECT 1000 MG RECTAL ×2 (08:24→16:32)
[2021-06-17] MEDS: polyethylene glycoL 3350 17 GM POWD.PACK PO (08:25)
[2021-06-17] MEDS: POTASSIUM CHLORIDE 20 MEQ PACKET (FOR LIQUID) 40 MEQ PO ×2 (09:50→16:31)
--- NOTE | 2021-06-17 13:18 | P.PNNP_ITS ---
Progress Note: A&P Assessment and Plan (1) SHUBHAM (acute kidney injury): Code(s): N17.9 - Acute kidney failure, unspecified Status: Acute Assessment and Plan: * improving * suspect due to volume depletion * this was likely worsened by previous diuretic use, urinary retention, and concurrent EDI-I use * persaud catheter in place * continue gentle IVF hydration * follow repeat labs and UOP (2) Chronic kidney disease, stage 2 (mild): Code(s): N18.2 - Chronic kidney disease, stage 2 (mild) Status: Acute Assessment and Plan: * baseline creatinine runs ~ 1.1 - 1.4mg/dl * due to hypertension, vascular disease, and age-related change (3) Hyponatremia: Code(s): E87.1 - Hypo-osmolality and hyponatremia Status: Acute Assessment and Plan: * improving * suspect hypovolemic hyponatremia * low urine sodium supports this * improvement in sodium noted since admission with IVFs * goal of therapy is a rate of change of 4 - 6meq/24hrs (and no more than 8meq) -- this has been achieved * follow trend of repeat sodium levels (4) Benign prostatic hyperplasia: Code(s): N40.0 - Benign prostatic hyperplasia without lower urinary tract symptoms Status: Chronic Assessment and Plan: * persaud catheter in place * follow I/Os * voiding trial before discharge (5) KIRSTEN (obstructive sleep apnea): Code(s): G47.33 - Obstructive sleep apnea (adult) (pediatric) Status: Chronic Assessment and Plan: * use home BiPAP nightly (6) Constipation: Code(s): K59.00 - Constipation, unspecified Status: Acute Assessment and Plan: * on bowel regimen * improving Will continue to follow. Subjective Date/time seen: 06/17/21 13:18 Slow and steady improvement noted in the last 24 - 48 hours; no acute complaints voiced at this time; feels reasonably well; at bedside and confirms that looks significantly better than on presentation/admission to the hospital; no issues/events overnight or earlier this AM. Exam Narrative: General: WD/WN male in NAD Heart: normal S1 and S2; no rub Lungs: clear to auscultation Abdomen: soft, nontender, nondistended, positive bowel sounds Extremities: no cyanosis or clubbing; trace edema Skin: no rash or nodules Objective Data Vital Signs Vital Signs: Vital Signs Temp Pulse Resp BP Pulse Ox 06/17/21 06:00 36.8 C 65 18 116/65 95 06/17/21 01:56 64 96 06/16/21 22:00 37.3 C 67 20 122/64 94 06/16/21 21:00 60 96 Intake/Output Intake/Output: Intake & Output 06/14/21 06/15/21 06/16/21 06/17/21 23:59 23:59 23:59 23:59 Intake Total 4690 1740 2688 1020 Output Total 850 4750 1150 1999 Balance 2419 -9197 2256 -385 Meds/Results Medications: Active Medications Generic Name Dose Route Start Last Admin Trade Name Freq PRN Reason Stop Dose Admin Acetaminophen 650 mg 06/11/21 16:22 06/12/21 08:38 Acetaminophen 325 Mg Tablet PO 650 mg Q4H PRN Administration Mild Pain (1-3) or Fever Amlodipine Besylate 2.5 mg 06/12/21 09:00 06/14/21 12:39 Amlodipine Besylate 2.5 Mg Tablet PO 2.5 mg DAILY MARTHA Administration Aspirin 81 mg
--- NOTE | 2021-06-17 13:18 | PM.PNNEP ---
Progress Note: A&P Assessment and Plan (1) SHUBHAM (acute kidney injury): Code(s): N17.9 - Acute kidney failure, unspecified Status: Acute Assessment and Plan: improving suspect due to volume depletion this was likely worsened by previous diuretic use, urinary retention, and concurrent EDI-I use persaud catheter in place continue gentle IVF hydration follow repeat labs and UOP (2) Chronic kidney disease, stage 2 (mild): Code(s): N18.2 - Chronic kidney disease, stage 2 (mild) Status: Acute Assessment and Plan: baseline creatinine runs ~ 1.1 - 1.4mg/dl due to hypertension, vascular disease, and age-related change (3) Hyponatremia: Code(s): E87.1 - Hypo-osmolality and hyponatremia Status: Acute Assessment and Plan: improving suspect hypovolemic hyponatremia low urine sodium supports this improvement in sodium noted since admission with IVFs goal of therapy is a rate of change of 4 - 6meq/24hrs (and no more than 8meq) -- this has been achieved follow trend of repeat sodium levels (4) Benign prostatic hyperplasia: Code(s): N40.0 - Benign prostatic hyperplasia without lower urinary tract symptoms Status: Chronic Assessment and Plan: persaud catheter in place follow I/Os voiding trial before discharge (5) KIRSTEN (obstructive sleep apnea): Code(s): G47.33 - Obstructive sleep apnea (adult) (pediatric) Status: Chronic Assessment and Plan: use home BiPAP nightly (6) Constipation: Code(s): K59.00 - Constipation, unspecified Status: Acute Assessment and Plan: on bowel regimen improving Will continue to follow. Subjective Date/time seen: 06/17/21 13:18 Slow and steady improvement noted in the last 24 - 48 hours; no acute complaints voiced at this time; feels reasonably well; at bedside and confirms that looks significantly better than on presentation/admission to the hospital; no issues/events overnight or earlier this AM. Exam Narrative: General: WD/WN male in NAD Heart: normal S1 and S2; no rub Lungs: clear to auscultation Abdomen: soft, nontender, nondistended, positive bowel sounds Extremities: no cyanosis or clubbing; trace edema Skin: no rash or nodules Objective Data Vital Signs Vital Signs: Vital Signs Temp Pulse Resp BP Pulse Ox 06/17/21 06:00 36.8 C 65 18 116/65 95 06/17/21 01:56 64 96 06/16/21 22:00 37.3 C 67 20 122/64 94 06/16/21 21:00 60 96 Intake/Output Intake/Output: Intake & Output 06/14/21 06/15/21 06/16/21 06/17/21 23:59 23:59 23:59 23:59 Intake Total 4690 1740 2688 1020 Output Total 850 4750 1150 2000 Balance 3840 3010 1538 -980 Meds/Results Medications: Active Medications Generic Name Dose Route Start Last Admin Trade Name Freq PRN Reason Stop Dose Admin Acetaminophen 650 mg 06/11/21 16:22 06/12/21 08:38 Acetaminophen 325 Mg Tablet PO 650 mg Q4H PRN Administration Mild Pain (1-3) or Fever Amlodipine Besylate 2.5 mg 06/12/21 09:00 06/14/21 12:39 Amlodipine Besylate 2.5 Mg Tablet PO 2.5 mg DAILY MARTHA Administration Aspirin 81 mg 06/12/21 09:00 06/17/21 08:23 Aspirin 81 Mg Chewable Tablet PO 07/12/21 08:59 81 mg DAILY MARTHA Administration Clonazepam 2 mg 06/12/21 21:00 06/16/21 21:29 Clonazepam (*Crx) 0.5 Mg Tablet PO Not Given HS MARTHA Docusate Sodium 100 mg 06/12/21 09:00 06/17/21 08:23 Docusate Sodium 100 Mg Capsule PO 100 mg Q12HR MARTHA Administration Famotidine 20 mg 06/11/21 21:00 06/17/21 08:24 Famotidine 20 Mg/2 Ml Vial IV PUSH 20 mg Q12HR MARTHA Administration Heparin Sodium (Porcine) 5,000 units 06/11/21 21:00 06/17/21 08:24 Heparin Sodium 5,000 Units/Ml Vial SUB-Q 5,000 units Q12HR MARTHA Administration Piperacillin Sod/Tazobactam Sod 2.25 gm in 50 mls @ 100 mls/hr 06/15/21 18:00 06/17/21 12:43
--- NOTE | 2021-06-17 13:42 | PM.IMPN ---
Progress Note: A&P Assessment and Plan (1) Acute kidney injury: Code(s): N17.9 - Acute kidney failure, unspecified Status: Acute Assessment and Plan: Worsening acute non oliguric kidney injury. His urinary output has been in the 2-2.6 L range. Over the last 12 hours patient has only made 400 cc of urine. Monitor intake and output closely. Patient is not uremic. His electrolytes are within the normal range. There is no indication for renal replacement therapy. Follow-up with nephrology for a possible renal biopsy. Hold diuretics, hold benazepril Continue with cautious IV hydration with close monitoring of volume status and renal function. Haider catheter has been inserted for strict I/O. Monitor renal function closely. Renally dose medications and avoid nephrotoxins. Creatinine has been fluctuating 2.7->2.2->2.6->1.6 much better today (2) Electrolyte abnormality: Code(s): E87.8 - Other disorders of electrolyte and fluid balance, not elsewhere classified Status: Acute Assessment and Plan: Including moderate hyponatremia (121), hypokalemia (3.1), and hypochloremia (78). Repeat BMP tomorrow. Continue to monitor electrolytes (3) Chronic anemia: Code(s): D64.9 - Anemia, unspecified Status: Acute Assessment and Plan: Hemoglobin and hematocrit are stable on review of previous labs. (4) Ulcerative colitis: Code(s): K51.90 - Ulcerative colitis, unspecified, without complications Status: Acute Assessment and Plan: CT scan suggests persistent colitis, pt is on iv zosyn day 2 and iv fluids (5) Hypertension: Code(s): I10 - Essential (primary) hypertension Status: Acute Assessment and Plan: Continue to watch has been running low better on fluids (6) Benign prostatic hyperplasia: Code(s): N40.0 - Benign prostatic hyperplasia without lower urinary tract symptoms Status: Acute Assessment and Plan: Continue Haider catheter. Will need to consider Haider catheter but will await for nephrology recommendations to allow for accurate I&O at this time. (7) Overactive bladder: Code(s): N32.81 - Overactive bladder Status: Acute Assessment and Plan: Oxybutynin and vibegron currently on hold given concerns for retention on arrival. (8) Obstructive sleep apnea treated with BiPAP: Code(s): G47.33 - Obstructive sleep apnea (adult) (pediatric) Status: Acute Assessment and Plan: Continue with BiPAP per is home parameters. (9) Constipation: Code(s): K59.00 - Constipation, unspecified Status: Acute Assessment and Plan: Patient had 2 large bowel movements on 06/13/2021. (10) Dysphagia: Code(s): R13.10 - Dysphagia, unspecified Status: Acute Assessment and Plan: Pt may benefit from EGD Subjective Date/time seen: 06/17/21 13:42 Interval history: Danial Wilson is a 75-year-old male with a history of BPH s/p TURP, overactive bladder, COPD, CKD stage 3, hypertension, hyperlipidemia, KIRSTEN on BiPAP, and several other medical problems who is seen in follow-up for urinary retention and acute kidney injury. Admitted with BPH, SHUBHAM, overactive bladder and UC. Pt having CT scan suggests persistent colitis. Pt had his colonoscopy showing proctitis. Pt is on iv abx day 2. Creat is improving hopeful dc tomorrow. Review of Systems Review of Systems: All systems reviewed & are unremarkable except as noted in HPI and below Exam Narrative: Overweight chronically ill Respiratory: clear to auscultation bilaterally, nonlabored breathing Cardio: regular rate, regular rhythm with S1-S2 Abdomen: protuberant, normoactive bowel sounds, soft, suprapubic area is tender to palpation : Haider catheter patent and draining straw-colored urine Extremities: Trace pedal edema, no erythema or tenderness to palpation, DP pulses 2+ bilaterally
[2021-06-17] MEDS: WATER FOR IRRIGATION, STERILE 1,000 ML BOTTLE 1000 ML (19:28)
[2021-06-17] MEDS: clonazePAM (*CRX) 0.5 MG TABLET 2 MG PO (21:43)
[2021-06-17] MEDS: traZODone HCL 50 MG TABLET 200 MG PO (21:46)
[2021-06-17] MEDS: PRAMIPEXOLE 1 MG TABLET 2 MG PO (21:47)
[2021-06-18 02:52] VITALS: PULSE 54; O2SAT 96
[2021-06-18 05:36] VITALS: BP 109/44; PULSE 46; RESP 18; TEMP 36.8; O2SAT 94
[2021-06-18] MEDS: ACETAMINOPHEN 325 MG TABLET 650 MG PO (05:44)
[2021-06-18 07:46] LABS: Hematocrit 33.8 % (42.0-52.0); Hemoglobin 11.4 g/dL (14.0-18.0); Mean Corpuscular HGB Conc 33.7 g/dl (32-36); Mean Corpuscular Hemoglobin 32.7 pg (26-34); Mean Corpuscular Volume 96.8 fl (80-100); Mean Platelet Volume 9.5 fl (7.4-10.4); Platelet Count Result 267 k/mm3 (150-375); Red Blood Count 3.49 M/mm3 (4.6-6.20); Red Cell Distribution Width 12.7 % (11.5-14.5); White Blood Count 6.8 K/mm3 (4.5-10.0)
[2021-06-18 08:04] LABS: Anion Gap 6 mmol/L (8-16); Blood Urea Nitrogen 13 mg/dL (9-20); Calcium 9.5 mg/dL (8.4-10.2); Carbon Dioxide 27 mmol/L (22-30); Chloride 99 mmol/L (98-107); Estimated CRCL calculation 55 ml/min; Estimated Glomerular Filt Rate 49; Glucose 93 mg/dL (65-110); Potassium 3.9 mmol/L (3.4-5.0); Sodium 132 mmol/L (137-145)
[2021-06-18] MEDS: CHOLECALCIFEROL 1,000 UNITS TABLET 5000 UNITS PO (08:30)
[2021-06-18] MEDS: DOCUSATE SODIUM 100 MG CAPSULE PO (08:31)
[2021-06-18] MEDS: POTASSIUM CHLORIDE 20 MEQ PACKET (FOR LIQUID) 40 MEQ PO (08:31)
[2021-06-18] MEDS: ROSUVASTATIN 10 MG TABLET 20 MG PO (08:31)
[2021-06-18] MEDS: polyethylene glycoL 3350 17 GM POWD.PACK PO (08:31)
[2021-06-18] MEDS: HEPARIN SODIUM 5,000 UNITS/ML VIAL 5000 UNITS SUB-Q (08:31)
[2021-06-18] MEDS: TAMSULOSIN HCL 0.4 MG CAPSULE PO (08:32)
[2021-06-18] MEDS: ASPIRIN 81 MG CHEWABLE TABLET PO (08:32)
[2021-06-18] MEDS: MESALAMINE 1,000 MG SUPP.RECT 1000 MG RECTAL (08:33)
--- NOTE | 2021-06-18 11:01 | P.PNNP_ITS ---
Progress Note: A&P Assessment and Plan (1) SHUBHAM (acute kidney injury): Code(s): N17.9 - Acute kidney failure, unspecified Status: Acute Assessment and Plan: * improving if not back to baseline * suspect due to volume depletion * this was likely worsened by previous diuretic use, urinary retention, and concurrent EDI-I use * persaud catheter in place - voiding trial today? * s/p gentle IVF hydration * follow repeat labs and UOP (2) Chronic kidney disease, stage 2 (mild): Code(s): N18.2 - Chronic kidney disease, stage 2 (mild) Status: Acute Assessment and Plan: * baseline creatinine runs ~ 1.1 - 1.4mg/dl * due to hypertension, vascular disease, and age-related change (3) Hyponatremia: Code(s): E87.1 - Hypo-osmolality and hyponatremia Status: Acute Assessment and Plan: * improving * suspect hypovolemic hyponatremia * low urine sodium supports this * improvement in sodium noted since admission with IVFs * goal of therapy is a rate of change of 4 - 6meq/24hrs (and no more than 8meq) -- this has been achieved * follow trend of repeat sodium levels (4) Benign prostatic hyperplasia: Code(s): N40.0 - Benign prostatic hyperplasia without lower urinary tract symptoms Status: Chronic Assessment and Plan: * persaud catheter in place * follow I/Os * voiding trial before discharge (5) KIRSTEN (obstructive sleep apnea): Code(s): G47.33 - Obstructive sleep apnea (adult) (pediatric) Status: Chronic Assessment and Plan: * use home BiPAP nightly (6) Constipation: Code(s): K59.00 - Constipation, unspecified Status: Acute Assessment and Plan: * on bowel regimen * improving Will continue to follow. Subjective Date/time seen: 06/18/21 11:01 Appears to be feeling reasonably well at the time of my visit; no apparent distress voiced; no events overnight or earlier this AM. Exam Narrative: General: WD/WN male in NAD Heart: normal S1 and S2; no rub Lungs: clear to auscultation Abdomen: soft, nontender, nondistended, positive bowel sounds Extremities: no cyanosis or clubbing; trace edema Skin: warm and dry Objective Data Vital Signs Vital Signs: Vital Signs Temp Pulse Resp BP Pulse Ox 06/18/21 05:36 36.8 C 46 L 18 109/44 L 94 06/18/21 02:52 54 L 96 06/17/21 23:47 94 06/17/21 23:46 52 L 94 06/17/21 21:41 37.6 C H 56 L 18 115/60 97 06/17/21 20:00 54 L 18 96 06/17/21 14:00 37.2 C 67 24 H 142/57 H 96 Intake/Output Intake/Output: Intake & Output 06/15/21 06/16/21 06/17/21 06/18/21 23:59 23:59 23:59 23:59 Intake Total 1740 2688 3260 1040 Output Total 4750 1150 3200 800 Balance -3010 1538 60 240 Meds/Results Medications: Active Medications Generic Name Dose Route Start Last Admin Trade Name Freq PRN Reason Stop Dose Admin Acetaminophen 650 mg 06/11/21 16:22 06/18/21 05:44 Acetaminophen 325 Mg Tablet PO 650 mg Q4H PRN Administration Mild Pain (1-3) or Fever Amlodipine Besylate 2.5 mg 06/12/21 09:00 06/14/21 12:39 Amlodipine Besylate 2.5 Mg Tablet PO 2.
--- NOTE | 2021-06-18 11:01 | PM.PNNEP ---
Progress Note: A&P Assessment and Plan (1) SHUBHAM (acute kidney injury): Code(s): N17.9 - Acute kidney failure, unspecified Status: Acute Assessment and Plan: improving if not back to baseline suspect due to volume depletion this was likely worsened by previous diuretic use, urinary retention, and concurrent EDI-I use persaud catheter in place - voiding trial today? s/p gentle IVF hydration follow repeat labs and UOP (2) Chronic kidney disease, stage 2 (mild): Code(s): N18.2 - Chronic kidney disease, stage 2 (mild) Status: Acute Assessment and Plan: baseline creatinine runs ~ 1.1 - 1.4mg/dl due to hypertension, vascular disease, and age-related change (3) Hyponatremia: Code(s): E87.1 - Hypo-osmolality and hyponatremia Status: Acute Assessment and Plan: improving suspect hypovolemic hyponatremia low urine sodium supports this improvement in sodium noted since admission with IVFs goal of therapy is a rate of change of 4 - 6meq/24hrs (and no more than 8meq) -- this has been achieved follow trend of repeat sodium levels (4) Benign prostatic hyperplasia: Code(s): N40.0 - Benign prostatic hyperplasia without lower urinary tract symptoms Status: Chronic Assessment and Plan: persaud catheter in place follow I/Os voiding trial before discharge (5) KIRSTEN (obstructive sleep apnea): Code(s): G47.33 - Obstructive sleep apnea (adult) (pediatric) Status: Chronic Assessment and Plan: use home BiPAP nightly (6) Constipation: Code(s): K59.00 - Constipation, unspecified Status: Acute Assessment and Plan: on bowel regimen improving Will continue to follow. Subjective Date/time seen: 06/18/21 11:01 Appears to be feeling reasonably well at the time of my visit; no apparent distress voiced; no events overnight or earlier this AM. Exam Narrative: General: WD/WN male in NAD Heart: normal S1 and S2; no rub Lungs: clear to auscultation Abdomen: soft, nontender, nondistended, positive bowel sounds Extremities: no cyanosis or clubbing; trace edema Skin: warm and dry Objective Data Vital Signs Vital Signs: Vital Signs Temp Pulse Resp BP Pulse Ox 06/18/21 05:36 36.8 C 46 L 18 109/44 L 94 06/18/21 02:52 54 L 96 06/17/21 23:47 94 06/17/21 23:46 52 L 94 06/17/21 21:41 37.6 C H 56 L 18 115/60 97 06/17/21 20:00 54 L 18 96 06/17/21 14:00 37.2 C 67 24 H 142/57 H 96 Intake/Output Intake/Output: Intake & Output 06/15/21 06/16/21 06/17/21 06/18/21 23:59 23:59 23:59 23:59 Intake Total 1740 2688 3260 1040 Output Total 4750 1150 3200 800 Balance -3010 1538 60 240 Meds/Results Medications: Active Medications Generic Name Dose Route Start Last Admin Trade Name Freq PRN Reason Stop Dose Admin Acetaminophen 650 mg 06/11/21 16:22 06/18/21 05:44 Acetaminophen 325 Mg Tablet PO 650 mg Q4H PRN Administration Mild Pain (1-3) or Fever Amlodipine Besylate 2.5 mg 06/12/21 09:00 06/14/21 12:39 Amlodipine Besylate 2.5 Mg Tablet PO 2.5 mg DAILY MARTHA Administration Aspirin 81 mg 06/12/21 09:00 06/18/21 08:32 Aspirin 81 Mg Chewable Tablet PO 07/12/21 08:59 81 mg DAILY MARTHA Administration Clonazepam 2 mg 06/12/21 21:00 06/17/21 21:43 Clonazepam (*Crx) 0.5 Mg Tablet PO 2 mg HS MARTHA Administration Docusate Sodium 100 mg 06/12/21 09:00 06/18/21 08:31 Docusate Sodium 100 Mg Capsule PO 100 mg Q12HR MARTHA Administration Famotidine 20 mg 06/11/21 21:00 06/17/21 21:44 Famotidine 20 Mg/2 Ml Vial IV PUSH 20 mg Q12HR MARTHA Administration Heparin Sodium (Porcine) 5,000 units 06/11/21 21:00 06/18/21 08:31 Heparin Sodium 5,000 Units/Ml Vial SUB-Q 5,000 units Q12HR MARTHA Administration Piperacillin Sod/Tazobactam Sod 2.25 gm i
--- NOTE | 2021-06-18 12:36 | PM.DS ---
DS: Admitting Diagnosis Discharge Date 06/19/2021 Admitting Diagnosis Decreased urine output and concerns for urinary retention. DS: Discharge Diagnosis Discharge Diagnosis (1) Acute kidney injury: Code(s): N17.9 - Acute kidney failure, unspecified Status: Acute Assessment and Plan: Worsening acute non oliguric kidney injury. His urinary output has been in the 2-2.6 L range. Over the last 12 hours patient has only made 400 cc of urine. Monitor intake and output closely. Patient is not uremic. His electrolytes are within the normal range. There is no indication for renal replacement therapy. Follow-up with nephrology for a possible renal biopsy. persaud removed prior to discharge Creatinine has been fluctuating 2.7->2.2->2.6->1.6 much better today (2) Electrolyte abnormality: Code(s): E87.8 - Other disorders of electrolyte and fluid balance, not elsewhere classified Status: Acute Assessment and Plan: Including moderate hyponatremia (121), hypokalemia (3.1), and hypochloremia (78). (3) Chronic anemia: Code(s): D64.9 - Anemia, unspecified Status: Acute Assessment and Plan: Hemoglobin and hematocrit are stable on review of previous labs. (4) Ulcerative colitis: Code(s): K51.90 - Ulcerative colitis, unspecified, without complications Status: Acute Assessment and Plan: CT scan suggests persistent colitis, pt is on iv zosyn day 2 and iv fluids feels better no diarrhea only constipation. (5) Hypertension: Code(s): I10 - Essential (primary) hypertension Status: Chronic Assessment and Plan: BP is better (6) Benign prostatic hyperplasia: Code(s): N40.0 - Benign prostatic hyperplasia without lower urinary tract symptoms Status: Chronic Assessment and Plan: Can dc Persaud catheter. (7) Overactive bladder: Code(s): N32.81 - Overactive bladder Status: Acute Assessment and Plan: Oxybutynin and vibegron currently on hold given concerns for retention on arrival. (8) Obstructive sleep apnea treated with BiPAP: Code(s): G47.33 - Obstructive sleep apnea (adult) (pediatric) Status: Acute Assessment and Plan: Continue with BiPAP per is home parameters. (9) Constipation: Code(s): K59.00 - Constipation, unspecified Status: Acute Assessment and Plan: Patient had 2 large bowel movements on 06/13/2021. now more constipated (10) Dysphagia: Code(s): R13.10 - Dysphagia, unspecified Status: Acute Assessment and Plan: Pt may benefit from EGD Pt was fund to have a esophageal stricture and then went on to have a balloon dilation. Pt tolerating regular diet prior to DC DS: Summary Hospital Course Hospital Course: Danial Wilson is a 75-year-old male with a history of BPH s/p TURP, overactive bladder, COPD, CKD stage 3, hypertension, hyperlipidemia, KIRSTEN on BiPAP, and several other medical problems who is seen in follow-up for urinary retention and acute kidney injury. Admitted with BPH, SHUBHAM, overactive bladder and UC. Pt having CT scan suggests persistent colitis. Pt had his colonoscopy showing proctitis. Pt treated with iv abx. Pt had EGD see report. Pt is stable for discharge. Time Spent with Patient Time attestation: Total time spent providing and/or coordinating discharge services:40 minutes on day of discharge Exam Narrative: Overweight comfortable Respiratory: clear to auscultation bilaterally, nonlabored breathing Cardio: regular rate, regular rhythm with S1-S2 Abdomen: protuberant, normoactive bowel sounds, soft, suprapubic area is tender to palpation Extremities: Trace pedal edema, no erythema or tenderness to palpation, DP pulses 2+ bilaterally Skin: no rashes or lesions, warm and dry Psych: appropriate mood and affect, judgment and insight intact DS: Data Data Completed and Pending Pendin
[2021-06-18 14:00] VITALS: BP 128/47; PULSE 64; RESP 22; TEMP 37.1; O2SAT 97
== END 2021-06-18 15:30 | disposition home or self-care (01) | DRG 683 ==
LOC: ANHED 16:22 → ANH3MEDSUR 06-12 00:11
PROVIDERS: Internal Medicine; Internal Medicine Gastroenterology; Internal Medicine Nephrology; Physician Assistant; Admitting Provider Internal Medicine Critical Care Medicine; Emergency Provider Emergency Medicine; PCP Family Medicine; Visit Provider Physician Assistant
PROC: 0DJ08ZZ Inspection of Upper Intestinal Tract, Via Natural or Artificial Opening Endoscopic (ICD-10-PCS; CPT 43235; principal; 2021-06-15 13:30)
DX: N17.9 Acute kidney failure, unspecified (principal); Z68.41 Body mass index [BMI] 40.0-44.9, adult; E87.1 Hypo-osmolality and hyponatremia; Z94.0 Kidney transplant status; K51.90 Ulcerative colitis, unspecified, without complications; J44.9 Chronic obstructive pulmonary disease, unspecified; K21.9 Gastro-esophageal reflux disease without esophagitis; E78.5 Hyperlipidemia, unspecified; G47.33 Obstructive sleep apnea (adult) (pediatric); F41.9 Anxiety disorder, unspecified; Z90.49 Acquired absence of other specified parts of digestive tract; E87.6 Hypokalemia; K59.00 Constipation, unspecified; R33.9 Retention of urine, unspecified; I12.9 Hypertensive chronic kidney disease with stage 1 through stage 4 chronic kidney disease, or unspecified chronic kidney disease; N18.30 Chronic kidney disease, stage 3 unspecified; N40.1 Benign prostatic hyperplasia with lower urinary tract symptoms; R33.8 Other retention of urine; N32.81 Overactive bladder; E87.8 Other disorders of electrolyte and fluid balance, not elsewhere classified; D64.9 Anemia, unspecified; R15.9 Full incontinence of feces; E86.9 Volume depletion, unspecified; K62.89 Other specified diseases of anus and rectum; K22.2 Esophageal obstruction; K57.30 Diverticulosis of large intestine without perforation or abscess without bleeding; E66.9 Obesity, unspecified
CPT/HCPCS: 36415; 71045; 74018; 74176; 76775; 80048; 80053; 80069; 80202; 81001; 82274; 82570; 82948; 83605; 83735; 83930; 83935; 84295; 84300; 84443; 84540; 85025; 85027; 87040; 88305; 93005; 97110; 97116; 97161; 97166; 97530; 97535; 99285; A9270; C1726; J0131; J0171; J1644; J2405; J2543; J2550; J2704; J3370; J7030; J7120

== ENCOUNTER 2021-06-24 10:14 | Emergency (ER) | payer MEDICARE, SELFPAY ==
[2021-06-24] VITALS (26 sets, daily range): BP systolic 127–175; BP diastolic 53–97; PULSE 67–96; RESP 16–31; TEMP 37.6–37.7; O2SAT 94–97
--- NOTE | ~2021-06-24 | XR_ITS ---
EXAMINATION: XR chest 2V DATE: 06/24/2021 10:39 INDICATION: Shortness of breath and wheezing TECHNIQUE: frontal and lateral views of the chest were obtained. COMPARISON: Chest radiograph dated 06/13/2021 and 12/09/2018 FINDINGS: Unchanged elevation of the right hemidiaphragm. Persistent mild opacities in the bilateral lower lung zones with interval improvement of prior opacities in the mid and right upper lung zones. No pleural effusion or pneumothorax. Cardiomegaly with pulmonary vascular congestion. Mild thoracolumbar levosc oliosis. Moderate degenerative skeletal changes in the spine and at both shoulders. IMPRESSION: 1. Mild opacities at bilateral lung bases most likely chronic atelectasis/scarring with differential including mild pulmonary edema or pneumonia. 2. Cardiomegaly with pulmonary vascular congestion. 2. Chronic elevation of the right hemidiaphragm. Reviewed, dictated and finalized at location A. MBLER FOR PULLER OVER MACHINE IMPRESSION: 1. Mild opacities at bilateral lung bases most likely chronic atelectasis/scarr ing with differential including mild pulmonary edema or pneumonia. 2. Cardiomegaly with pulmonary vascular congestion. 2. Chronic elevation of the right hemidiaphragm.
--- NOTE | 2021-06-24 10:27 | ECG_ITS ---
Measurements Intervals [place] Rate: 84 P: 2 NC: 141 QRS: -49 QRSD: 146 T: 72 QT: 376 QTc: 447 Interpretive Statements SINUS RHYTHM RIGHT BUNDLE BRANCH BLOCK LEFT ANTERIOR FASCICULAR BLOCK LEFT VENTRICULAR HYPERTROPHY AND ST-T CHANGE BASELINE ARTIFACT- I, III, AVL, AVF, V1-V3 ABNORMAL ECG Electronically Signed On 06-24-2021 11:37:30 SLOT SHIFT SUPERVISOR by Stoney Dodd D.O.
[2021-06-24 10:36] LABS: Basophils Absolute Auto 0.1 K/mm3 (0.0-0.1); Basophils Percent Auto 1.3 % (0.2-1.2); Eosinophils Absolute Auto 0.9 K/mm3 (0-0.3); Eosinophils Percent Auto 10.4 % (0-4.4); Hematocrit 34.4 % (42.0-52.0); Hemoglobin 11.4 g/dL (14.0-18.0); Immature Granulocyte Absolute 0.05 K/mm3 (0.00-0.031); Immature Granulocyte Percent A 0.6 % (0-0.5); Lymphocytes Absolute Auto 1.66 K/mm3 (0.9-3.2); Lymphocytes Percent Auto 19.8 % (18.3-44.2); Mean Corpuscular HGB Conc 33.1 g/dl (32-36); Mean Corpuscular Hemoglobin 32.8 pg (26-34); Mean Corpuscular Volume 98.9 fl (80-100); Mean Platelet Volume 9.6 fl (7.4-10.4); Monocytes Absolute Auto 0.8 K/mm3 (0.1-0.6); Monocytes Percent Auto 9.3 % (2.6-8.5); Neutrophils Absolute Auto 4.9 K/mm3 (1.3-6.7); Neutrophils Percent Auto 58.6 % (45.5-73.1); Platelet Count Result 335 k/mm3 (150-375); Red Blood Count 3.48 M/mm3 (4.6-6.20); Red Cell Distribution Width 13.2 % (11.5-14.5); White Blood Count 8.4 K/mm3 (4.5-10.0)
--- NOTE | 2021-06-24 10:42 | ED.GENADULT ---
HPI - General Adult General Chief complaint: Shortness of Breath/Dyspnea <Vilma Brown PA-C - Last Filed: 06/24/21 19:03> Stated complaint: pneumonia? <Vilma Brown PA-C - Last Filed: 06/24/21 19:03> Time Seen by Provider: 06/24/21 10:25 <Vilma Brown PA-C - Last Filed: 06/24/21 19:03> Related Data Home medications: Home Medications Medication Instructions Recorded Confirmed clonazepam 2 mg PO HS 05/30/19 06/11/21 guaifenesin [Mucinex] 600 mg PO DAILY 05/30/19 06/11/21 lysine HCl 1,000 mg PO DAILY 05/30/19 06/11/21 multivitamin [Multiple Vitamins] 1 tablet PO DAILY 05/30/19 06/11/21 pramipexole 2 mg HS 05/30/19 06/11/21 oxybutynin chloride 15 mg 15 mg PO DAILY 04/11/21 06/11/21 tablet,extended release 24 hr vibegron 75 mg tablet 75 mg PO DAILY 04/11/21 06/11/21 cholecalciferol (vitamin D3) 100 5,000 unit PO DAILY cap 04/18/21 06/11/21 mcg (4,000 unit) capsule aspirin 81 mg PO DAILY 06/11/21 06/11/21 <Vilma Brown PA-C - Last Filed: 06/24/21 19:03> Allergies/adverse reactions: Allergies Allergy/AdvReac Type Severity Reaction Status Date / Time codeine AdvReac Mild CONSTIPATIO Verified 06/15/21 11:58 N methylprednisolone AdvReac Mild Vomiting Verified 04/19/21 10:57 prednisone AdvReac Unknown Vomiting Verified 06/15/21 11:58 <Vilma Brown PA-C - Last Filed: 06/24/21 19:03> [facility] Past Medical History Medical History: Medical History Anxiety Benign prostatic hyperplasia Chronic anemia Chronic obstructive pulmonary disease Compression fx, thoracic spine Gastroesophageal reflux disease History of esophageal dilatation Hyperlipidemia Hypertension Low serum vitamin D Obstructive sleep apnea treated with BiPAP Overactive bladder Pulmonary embolism (08/2018) Secondary erythrocytosis Related to COPD and obstructive sleep apnea. Previously received therapeutic phlebotomy. Tubulovillous adenoma of colon Ulcerative colitis <Vilma Brown PA-C - Last Filed: 06/24/21 19:03> Surgical History Surgical History: Surgical History History of bilateral cataract extraction History of cardiac catheterization History of colonoscopy with polypectomy History of cystoscopy History of decompression of ulnar nerve Left elbow. History of dental surgery History of extraction of renal calculus History of right hemicolectomy (06/10/19) Benign tubulovillous adenoma. Hx of transurethral resection of prostate <Vilma Brown PA-C - Last Filed: 06/24/21 19:03> Family History Family History: Family History Father Hypertension Malignant neoplasm of prostate Sibling Diabetes mellitus Family history of cardiovascular disease Malignant neoplasm of prostate Mother Family history of rheumatic fever Heart disease Sibling Cancer Heart transplant recipient Other Family history of coronary artery disease Family history of lung cancer <Vilma Brown PA-C - Last Filed: 06/24/21 19:03> Social History Social History: Social History Social History: Surrogate decision maker: Akua Wilson, spouse. Code status: Full code. Smoking status: Never smoker Second hand tobacco smoke exposure: Yes Alcohol intake: never Substance use: never Substance use type: does not use Additional living arrangements comments: The patient lives in [place] with his . 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 <Vilma Brown PA-C - Last Filed: 06/24/21 19:03> Course Course Emergency Course: Patient's cough is rather barky in character. He had an EGD last week and he has elevated eosinophils at this time. There were no biopsies done during his EGD,
[2021-06-24 10:50] LABS: Alanine Aminotransferase 52 U/L (4-50); Albumin Level 4.2 g/dL (3.5-5.1); Alkaline Phosphatase 94 U/L (38-126); Anion Gap 6 mmol/L (8-16); Aspartate Amino Transferase 62 U/L (17-59); Bilirubin,Total 0.5 mg/dL (0.2-1.3); Blood Urea Nitrogen 10 mg/dL (9-20); Calcium 9.3 mg/dL (8.4-10.2); Carbon Dioxide 29 mmol/L (22-30); Chloride 98 mmol/L (98-107); Estimated CRCL calculation 68 ml/min; Estimated Glomerular Filt Rate > 60; Glucose 98 mg/dL (65-110); Potassium 4.5 mmol/L (3.4-5.0); Sodium 133 mmol/L (137-145)
[2021-06-24] MEDS: FUROSEMIDE INJ 40 MG/4 ML VIAL IV PUSH (11:07)
[2021-06-24] MEDS: IPRATROPIUM BR 0.02% INH SOLN 0.5 MG/2.5 ML VIAL INHALATION (11:12)
[2021-06-24] MEDS: ALBUTEROL SULFATE NEB 2.5 MG/3 ML INH INHALATION (11:13)
[2021-06-24 11:45] LABS: Add Urine Microscopic? NO; Appearance Urine Clear (Clear); Bilirubin Urine Negative (Negative); Blood Urine Negative (Negative); Color Urine Straw (Yellow); Glucose Urine UA Negative (Negative); Ketones Urine Negative (Negative); Leukocyte Esterase Ur Negative LEU/UL (Negative); Nitrate Urine Negative (Negative); Protein Urine Negative (Negative); Specific Grav Ur 1.005 (1.001-1.035); Urobilinogen Urine Negative mg/dL (<2.0)
[2021-06-24] MEDS: PANTOPRAZOLE SODIUM IV 40 MG VIAL IV PUSH (12:58)
[2021-06-24] MEDS: BENZONATATE 100 MG CAPSULE 200 MG PO (13:49)
== END 2021-06-24 15:32 | disposition home or self-care (01) ==
PROVIDERS: Physician Assistant; Emergency Provider Emergency Medicine; PCP Family Medicine
DX: I11.0 Hypertensive heart disease with heart failure (principal); I50.9 Heart failure, unspecified; R05.9 Cough, unspecified; J44.9 Chronic obstructive pulmonary disease, unspecified; E78.5 Hyperlipidemia, unspecified; G47.33 Obstructive sleep apnea (adult) (pediatric); N40.0 Benign prostatic hyperplasia without lower urinary tract symptoms; N32.81 Overactive bladder; K51.90 Ulcerative colitis, unspecified, without complications; D75.1 Secondary polycythemia; F41.9 Anxiety disorder, unspecified; K21.9 Gastro-esophageal reflux disease without esophagitis; D64.9 Anemia, unspecified; Z86.711 Personal history of pulmonary embolism; Z86.010 Personal history of colon polyps; Z98.42 Cataract extraction status, left eye; Z98.41 Cataract extraction status, right eye; Z90.49 Acquired absence of other specified parts of digestive tract; Z90.79 Acquired absence of other genital organ(s); I45.2 Bifascicular block; I51.7 Cardiomegaly
CPT/HCPCS: 36415; 71046; 80053; 81003; 85025; 93005; 94640; 96374; 96375; 99284; A9270; C9113; J1940

== ENCOUNTER 2021-11-23 07:51 | Outpatient (CLI) | payer MEDICARE, SELFPAY ==
--- NOTE | 2021-11-24 16:59 | WPDSIXMINUTE ---
Six Minute Walk Procedure Procedure Performed Pulmonary Stress Test (6 min walk) Six Minute Walk Six Minute Walk: DOS: 11/23/2021 REQUESTING: Dr Jones REASON FOR TESTING : dyspnea on exertion SIX MINUTE WALK This test was conducted per ATS guidelines. The initial saturation is 95% and the pulse is 74. The blood pressure is 130/80. The patient walked for 6 minutes without stopping, lowest saturation was 92%. Highest pulse was 125 beats per minute. At the end of the study saturation was 97%, pulse was 90%. The patient walked 1000 ft/ 304.8 m. IMPRESSION: This is a normal 6 minute walk study, no supplemental oxygen needed with exertion. Distance walked is adequate for age.
== END 2021-11-23 07:52 | disposition home or self-care (01) ==
PROVIDERS: PCP Family Medicine; Visit Provider Internal Medicine Critical Care Medicine
DX: J44.9 Chronic obstructive pulmonary disease, unspecified (principal)
CPT/HCPCS: 94618

== ENCOUNTER 2021-12-15 14:21 | Outpatient (CLI) | payer MEDICARE, SELFPAY ==
--- NOTE | ~2021-12-15 | CT_ITS ---
EXAMINATION: CT brain wo con DATE: 12/15/2021 14:58 INDICATION: Left posterior headache TECHNIQUE: Computed tomography (CT) of the head was performed without intravenous contrast. Sagittal and coronal reconstructions were performed. The mA was adjusted according to patient size. Iterative reconstruction technique was employed. The dose-length product was 605.33 mGy-cm. COMPARISON: None FINDINGS: No acute intracranial hemorrhage, acute infarction or abnormal extra axial fluid collection. There is mild scattered white matter hypoattenuation consistent with chronic small vessel ischemic disease. Ventricles are normal and symmetric. No mass/mass effect. Changes of bilateral intraocular lens repla cement. The orbits, paranasal sinuses and mastoid air cells are normal. Intracranial calcified cerebr al atherosclerosis is noted. IMPRESSION: 1. No acute intracranial process. 2. Mild scattered white matter hypoattenuation consistent with chronic small vessel ischemic disease. Reviewed, dictated and finalized at location A. IMPRESSION: 1. No acute intracranial process. 2. Mild scattered white matter hypoattenuation consistent with chronic small ve ssel ischemic disease.
== END 2021-12-15 14:22 | disposition home or self-care (01) ==
PROVIDERS: PCP Family Medicine; Visit Provider Nurse Practitioner Family
DX: R51.9 Headache, unspecified (principal); G52.9 Cranial nerve disorder, unspecified
CPT/HCPCS: 70450

== ENCOUNTER 2021-12-16 11:28 | Outpatient (CLI) | payer MEDICARE, SELFPAY ==
--- NOTE | ~2021-12-16 | US_ITS ---
EXAMINATION: US soft tissue head and neck DATE: 12/16/2021 12:13 INDICATION: Head lump. TECHNIQUE: Multiple grayscale and Doppler ultrasound images of the head and neck were obtained. COMPARISON: head CT 12/15/2021 FINDINGS: There is no abnormal mass in the patient's area of concern. IMPRESSION: 1. No abnormal mass in the patient's area of concern in left posterolateral head. Reviewed, dictated and finalized at location A. IMPRESSION: 1. No abnormal mass in the patient's area of concern in left posterolateral ewelina romero
== END 2021-12-16 11:29 | disposition home or self-care (01) ==
LOC: ANHIMG 11:29
PROVIDERS: PCP Family Medicine; Visit Provider Nurse Practitioner Family
DX: R22.0 Localized swelling, mass and lump, head (principal)
CPT/HCPCS: 76536

== ENCOUNTER 2022-02-16 15:16 | Outpatient (CLI) | payer MEDICARE, SELFPAY ==
[2022-02-16 15:51] LABS: Anion Gap 6 mmol/L (8-16); Blood Urea Nitrogen 11 mg/dL (9-20); Calcium 9.6 mg/dL (8.4-10.2); Carbon Dioxide 28 mmol/L (22-30); Chloride 105 mmol/L (98-107); Estimated Glomerular Filt Rate > 60; Glucose 100 mg/dL (65-110); Potassium 4.1 mmol/L (3.4-5.0); Sodium 139 mmol/L (137-145)
[2022-02-16 15:59] LABS: Basophils Absolute Auto 0.1 K/mm3 (0.0-0.1); Basophils Percent Auto 1.3 % (0.2-1.2); Eosinophils Absolute Auto 0.3 K/mm3 (0-0.3); Eosinophils Percent Auto 2.8 % (0-4.4); Hematocrit 43.1 % (42.0-52.0); Hemoglobin 13.9 g/dL (14.0-18.0); Immature Granulocyte Absolute 0.02 K/mm3 (0.00-0.031); Immature Granulocyte Percent A 0.2 % (0-0.5); Lymphocytes Absolute Auto 2.15 K/mm3 (0.9-3.2); Lymphocytes Percent Auto 23.2 % (18.3-44.2); Mean Corpuscular HGB Conc 32.3 g/dl (32-36); Mean Corpuscular Hemoglobin 31.6 pg (26-34); Mean Platelet Volume 9.7 fl (7.4-10.4); Monocytes Absolute Auto 0.6 K/mm3 (0.1-0.6); Monocytes Percent Auto 6.6 % (2.6-8.5); Neutrophils Absolute Auto 6.1 K/mm3 (1.3-6.7); Neutrophils Percent Auto 65.9 % (45.5-73.1); Platelet Count Result 296 k/mm3 (150-375); Red Cell Distribution Width 13.7 % (11.5-14.5); White Blood Count 9.3 K/mm3 (4.5-10.0)
[2022-02-16 16:20] LABS: Thyroid Stimulating Hormone 0.677 uIU/mL (0.465-4.680)
== END 2022-02-16 15:17 | disposition home or self-care (01) ==
LOC: ANHLAB 15:20
PROVIDERS: PCP Family Medicine; Visit Provider Family Medicine
DX: R00.0 Tachycardia, unspecified (principal)
CPT/HCPCS: 36415; 80048; 84443; 85025

== ENCOUNTER 2022-02-20 14:05 | Outpatient (CLI) | payer MEDICARE, SELFPAY ==
--- NOTE | 2022-02-23 09:45 | WPDHOLTEREM ---
Holter/Event Monitor Holter/Event Monitor Date of procedure: 02/23/22 Holter/Event Procedure: 48 Hr Holter Monitor Diagnosis: Tachycardia unspecified Indications: Tachycardia unspecified Image/Tracing Quality: Good Finding: Average heart rate 91 beats per minute with a minimum heart rate 42 beats per minute and maximum heart rate 145 beats per minute. Patient was in atrial fibrillation during the recording time. There were a total of 42 wide complex beats which can represent ventricular ectopy or atrial fibrillation with aberrancy. There was one run of possible ventricular tachycardia or AFib with aberrancy and consistent of 4 beats and at heart rate 132 beats per minute. No significant heart pauses or blocks. Patient did not report any symptoms during the monitoring time. Conclusion: Atrial fibrillation with controlled average heart rate.
== END 2022-02-20 14:06 | disposition home or self-care (01) ==
PROVIDERS: PCP Family Medicine; Visit Provider Family Medicine
DX: R00.0 Tachycardia, unspecified (principal); I50.30 Unspecified diastolic (congestive) heart failure; I51.7 Cardiomegaly; I48.91 Unspecified atrial fibrillation
CPT/HCPCS: 93225; 93226

== ENCOUNTER → 2022-06-27 16:07 | Outpatient (CLI) | payer MEDICARE, SELFPAY ==
--- NOTE | ~2022-06-27 | XR_ITS ---
XR chest 2V DATE: 06/27/2022 16:27 INDICATION: Chronic congestive heart failure TECHNIQUE: 2 views COMPARISON: 06/24/2021 AP and lateral views FINDINGS: There is pulmonary vascular congestion and redistribution. Aortic calcification. There are bilateral lower lung infiltrates and/or atelectasis. There is moderate elevation of the right diaphragm. There is moderate chronic compression fracture deformity at L1. Thoracolumbar levoscoliosis. Osteopen ia. IMPRESSION: Congestive heart failure Chronic elevation right diaphragm Reviewed, dictated and finalized at location B. SALES CONSULTANT
== END ==
PROVIDERS: PCP Family Medicine; Visit Provider Family Medicine
DX: I50.32 Chronic diastolic (congestive) heart failure (principal)
CPT/HCPCS: 71046

== ENCOUNTER 2022-08-01 16:33 | Inpatient (IN) | payer MEDICARE, SELFPAY ==
[2022-07-28 11:51] VITALS: BMI 44.6
[2022-08-01] VITALS (14 sets, daily range): BP systolic 93–125; BP diastolic 46–85; PULSE 73–132; RESP 16–31; TEMP 36.6–37.3; O2SAT 92–99; BMI 45.5; BMI 48.0
--- NOTE | ~2022-08-01 | XR_ITS ---
Portable chest x-ray Comparison: 08/01/2022 Clinical History: Shortness of breath Findings: Mild extensive interstitial prominence noted. Cardiomediastinal silhouette is stable. Bon es and soft tissues are unremarkable. Impression: Mild interstitial edema versus chronic interstitial disease, unchanged. Reviewed, dictated and finalized at [facility]. O PNEUMATIC TESTER Impression: Mild interstitial edema versus chronic interstitial disease, unchanged.
--- NOTE | ~2022-08-01 | US_ITS ---
Renal-Bladder ultrasound Clinical History: Acute kidney injury Technique: Real-time sonographic imaging of the kidneys and urinary bladder was performed. Findings: The right kidney measures 10.8 cm in length and the left kidney measures 12.2 cm. There is no hydronephrosis or renal calculus identified. Renal cortical echogenicity is within normal limits. Suspected poorly imaged left renal cyst present. The urinary bladder is presumably collapsed, not clearly visualized. Impression: No hydronephrosis. Left renal cyst. Collapsed urinary bladder limits evaluation. Reviewed, dictated and finalized at location M. APPLICATION SPECIALIST Impression: No hydronephrosis. Left renal cyst. Collapsed urinary bladder limits evaluation.
--- NOTE | ~2022-08-01 | XR_ITS ---
EXAMINATION: XR chest 1V portable Exam Date/Time: 08/01/2022 14:55 RAND MAKER HISTORY: cough Comparison: 06/27/2022. RESULT: Lines, tubes, and devices: None. Lungs and pleura: Right hemidiaphragm elevation. Diffuse reticular opacities. Subsegmental perihilar and bibasilar opacities. Cardiomediastinal silhouette: Stable. Other: No acute osseous or upper abdominal finding. IMPRESSION: Pulmonary findings likely represent pulmonary edema with scattered atelectasis. Infection is not excl uded. Reviewed, dictated and finalized at location K. MAKER IMPRESSION: Pulmonary findings likely represent pulmonary edema with scattered atelectasis. Infection is not excluded.
[2022-08-01 12:48] LABS: Anion Gap 6 mmol/L (8-16); Blood Urea Nitrogen 17 mg/dL (9-20); Calcium 8.8 mg/dL (8.4-10.2); Carbon Dioxide 32 mmol/L (22-30); Chloride 102 mmol/L (98-107); Estimated CRCL calculation 55 ml/min; Estimated Glomerular Filt Rate 49; Glucose 106 mg/dL (65-110); Magnesium 2.3 mg/dL (1.6-2.3); Potassium 3.4 mmol/L (3.4-5.0); Sodium 140 mmol/L (137-145)
[2022-08-01] MEDS: APIXABAN 5 MG TABLET PO ×2 (12:58→21:17)
--- NOTE | 2022-08-01 14:00 | ECG_ITS ---
Measurements Intervals [place] Rate: 131 P: [place]: 0 QRS: -56 QRSD: 166 T: 6 QT: 347 QTc: 514 Interpretive Statements ATRIAL FLUTTER/TACHYCARDIA WITH RAPID VENTRICULAR RESPONSE RIGHT BUNDLE BRANCH BLOCK LEFT ANTERIOR FASCICULAR BLOCK LEFT VENTRICULAR HYPERTROPHY AND ST-T CHANGE BASELINE ARTIFACT- I, III, AVR, AVL ABNORMAL ECG COMPARED TO ECG 06/24/2021 10:25:25 ATRIAL FLUTTER NOW PRESENT Electronically Signed On 08-01-2022 12:48:05 MECHANICAL ESTIMATOR by Stoney Dodd D.O.
--- NOTE | 2022-08-01 14:40 | SUR.PREOP ---
Pt resting in bed, Dr. Dacosta came to bedside to reevaluate pt, procedure cancelled for today and to be rescheduled, additional tests ordered. Pt resting comfortably at this time, HR in 130's, RR in 30's, pt has a persistent cough and reports having a fever recently. Nasal swab collected, awaiting radiology for x-ray and lab for blood cx and additional labs.
--- NOTE | 2022-08-01 14:54 | SUR.PREOP ---
xray at bedside for CXR
[2022-08-01 15:11] LABS: Influenza A QL RT-PCR Negative (Negative); Influenza B QL RT-PCR Negative (Negative); RSV RNA, RT-PCR Negative (Negative); SARS-CoV-2 RNA PCR Negative
--- NOTE | 2022-08-01 16:17 | PC.NURSE ---
Patient's NED/CV procedure today with anesthesia was cancelled today due symptoms of worsening cough and reports of fever Sunday. Temp 99.[address] Dacosta cancelled procedure after talking with patient and and going over his symptoms. She gave orders to get a chest xray, labs including covid/flu/rsv swab, cbc and BNP, blood cultures x 2 with plans to review and send patient home to reschedule procedure. Lab was notified to come draw patient's labs. After reviewing chest xray Dr. Dacosta decided to admit patient to IMU with dx of rapid atrial flutter and CHF with plans to consult hospitalist to assess cough. pigment making supervisor was notified of need for IMU bed. Dr. Dacosta to put in admission orders. Telephone order for heart healthy diet placed.
--- NOTE | 2022-08-01 16:26 | SUR.PREOP ---
1st set of blood cultures and additional blood drawn, unable to obtain 2nd set of blood cultures. Lab notified, reports they will attempt to collect 2nd set of blood cultures at a later time.
[2022-08-01 16:30] LABS: Hematocrit 38.9 % (42.0-52.0); Hemoglobin 12.5 g/dL (14.0-18.0); Mean Corpuscular HGB Conc 32.1 g/dl (32-36); Mean Corpuscular Hemoglobin 31.3 pg (26-34); Mean Corpuscular Volume 97.3 fl (80-100); Mean Platelet Volume 9.5 fl (7.4-10.4); Platelet Count Result 259 k/mm3 (150-375); Red Cell Distribution Width 14.1 % (11.5-14.5); White Blood Count 11.1 K/mm3 (4.5-10.0)
--- NOTE | 2022-08-01 16:43 | PM.IMHP ---
H&P: HPI History of Present Illness Date/Time: 08/01/22 16:43 Chief Complaint: Acute diastolic CHF, a flutter RVR, cough and fever Narrative: Danial Wilson is a 76-year-old male followed by Drs. Hernandez and Dr. Pal. He has chronic diastolic CHF, KIRSTEN on BiPAP, HTN, COPD, morbid obesity, restless leg syndrome, dyslipidemia, CKD stage 4 and ulcerative colitis. He was found to have new atrial fibrillation by monitoring in January 2022 and when he saw Dr. Pal on 07/19/2022 he was in atrial flutter with a rapid ventricular response. He has gained at least 15-18 lb over the past few weeks in complained of shortness of breath and worsening edema. He was started on Eliquis and his metoprolol was increased from 25 mg b.i.d. to: 50 mg b.i.d.. He was scheduled to have a NED guided cardioversion today. The patient states he has been having a cough for 3 or 4 weeks, worse in the last few days, with yellow phlegm. He has had a fever at home of 100.1-100.2. He is having shortness of breath. His edema is a little worse than usual. His is urged him to go to the emergency room but he has refused. [facility], for selective NED guided cardioversion with anesthesia assistance, with a flutter RVR rate 130s, and occasional mild oxygen desaturation to the upper 80s particularly with paroxysms of coughing. His chest x-ray shows significant CHF. I felt best to delay his NED guided cardioversion and admit the patient today for treatment of his CHF and COPD exacerbation/probable bronchitis (rule out flu, COVID, etc.). Has been vaccinated. Review of Systems Constitutional: Constitutional: Reports difficulty sleeping (Due to coughing, has had to sit up to sleep at night.), Reports fatigue, Reports fever(s) and Reports lethargy Eyes: Eyes: Reports no additional eye complaints ENT: Denies epistaxis Cardiovascular: Cardiovascular: Denies chest pain, Reports pedal edema, Reports leg edema, Denies lightheadedness and Reports dyspnea Respiratory: Respiratory: Reports chest congestion, Reports cough, Reports dyspnea, Reports dyspnea on exertion and Reports wheezing Gastrointestinal: Gastrointestinal: Denies abdominal pain and Denies hematochezia Genitourinary: Genitourinary: Denies hematuria Musculoskeletal: Musculoskeletal: Reports no additional musculoskeletal complaints Integumentary/Breasts: Skin/Breast: Reports system reviewed and no additional complaints, except as docu Neurologic: Reports system reviewed and no additional complaints, except as documented, Denies behavioral changes and Denies confusion Psychiatric: Psychiatric: Denies behavioral changes and Denies confusion PMFSH Past Medical History Medical History Anxiety Atrial fibrillation Diagnosed 01/2022 Atrial flutter Diagnosis 06/2022. Benign prostatic hyperplasia BMI greater than 40 Chronic anemia Chronic obstructive pulmonary disease Compression fx, thoracic spine Diastolic heart failure Gastroesophageal reflux disease History of esophageal dilatation Hyperlipidemia Hypertension Low serum vitamin D Obstructive sleep apnea treated with BiPAP Overactive bladder Persistent disorder of initiating or maintaining sleep PLMD (periodic limb movement disorder) Pulmonary embolism (08/2018) Secondary erythrocytosis Related to COPD and obstructive sleep apnea. Previously received therapeutic phlebotomy. Sore in nose Tachycardia Tubulovillous adenoma of colon Ulcerative colitis Surgical History Surgical History History of bilateral cataract extraction History of cardiac catheterization History of colonoscopy with polypectomy History of cystoscopy History of decompression of ulnar nerve Left elbow. History of dental surgery History of extraction of renal calculus History of right hemicolectomy (06/10/19) Benign tubulovillous adenoma.
[2022-08-01 16:49] LABS: NT Pro B Type Natriuretic Pept 1280 pg/mL (5-100)
[2022-08-01] MEDS: METOPROLOL TARTRATE 50 MG TAB PO (17:16)
[2022-08-01] MEDS: FUROSEMIDE INJ 40 MG/4 ML VIAL IV PUSH (17:18)
--- NOTE | 2022-08-01 17:26 | PC.NURSE ---
Message by Matt Hameed RN left for Hospitalist Norma Dale regarding consult for new admission from cardiology.
--- NOTE | 2022-08-01 18:04 | PC.NURSE ---
Patient was NOT given the IV lopressor that was pulled from [facility] around 1706 08/01/2022. IV lopressor dose was returned to [facility]. [facility] will not let RN remove from [facility] as non-administered. This was communicated to receiving IMU RN, [place] during change of care report. Pharmacy was contacted to try to resolve issue. Message had to be left.
--- NOTE | 2022-08-01 18:15 | ADMGEN ---
This patient, Danial Wilson, was admitted to IMU Room 212-01. Patient/family oriented to hospital policies and general routines including ID bracelet, bed and alarms, visiting hours, pain management, procedures, bathroom and other care routines, personal items, smoking policy, room service/diet, and visiting hours. Information on how to activate the Rapid Response Team has been discussed. Patient/Family are encouraged to report perceived risks to care and to ask questions if they do not understand what they are told or what they should do.
--- NOTE | 2022-08-01 18:29 | PC.NURSE ---
[id number] patient was transported via bed to IMU room 212 and tech Paxton was in room for tele monitor and vital signs.
--- NOTE | 2022-08-01 18:30 | PC.NURSE ---
Dinner tray delivered to patient in [facility] this evening around 1730.
[2022-08-01] MEDS: DICLOFENAC SOD 25 MG TABLET.EC 50 MG PO (19:14)
[2022-08-01] MEDS: POTASSIUM CHLORIDE 20 MEQ TABLET.ER PO (19:14)
[2022-08-01] MEDS: traZODone HCL 50 MG TABLET 200 MG PO (21:17)
[2022-08-01] MEDS: PRAMIPEXOLE 1 MG TABLET 2 MG PO (21:18)
[2022-08-01] MEDS: clonazePAM (*CRX) 0.5 MG TABLET 2 MG PO (21:19)
[2022-08-02] VITALS (18 sets, daily range): BP systolic 98–118; BP diastolic 48–66; PULSE 51–108; RESP 18–24; TEMP 36–37; O2SAT 93–100; BMI 47.6
--- NOTE | 2022-08-02 01:50 | PC.NURSE ---
This patient, Danial Wilson, was transferred to [ [id number]] on 08/02/22 at 0150. Personal belongings sent with patient. Report given to [Elyssa garg ]. Appropriate documentation sent with patient.
--- NOTE | 2022-08-02 02:40 | PCRCNOTE ---
pt stating that he does not want help with anything and that he wants to sign out. RN notified.
[2022-08-02] MEDS: FLUTICASONE/UMECLIDIN/VILANTER 100-62.5-25 MCG ELLIPTA 1 PUFF INHALATION (08:52)
[2022-08-02 08:57] LABS: Anion Gap 5 mmol/L (8-16); Blood Urea Nitrogen 23 mg/dL (9-20); Calcium 8.7 mg/dL (8.4-10.2); Carbon Dioxide 32 mmol/L (22-30); Chloride 99 mmol/L (98-107); Estimated CRCL calculation 47 ml/min; Estimated Glomerular Filt Rate 39; Glucose 104 mg/dL (65-110); Potassium 3.6 mmol/L (3.4-5.0); Sodium 136 mmol/L (137-145)
[2022-08-02] MEDS: ASPIRIN 81 MG CHEWABLE TABLET PO (09:13)
[2022-08-02] MEDS: DICLOFENAC SOD 25 MG TABLET.EC 50 MG PO ×2 (09:13→16:45)
[2022-08-02] MEDS: ROSUVASTATIN 10 MG TABLET 20 MG PO (09:14)
[2022-08-02] MEDS: PANTOPRAZOLE 40 MG TABLET PO (09:14)
[2022-08-02] MEDS: CHOLECALCIFEROL 1,000 UNITS TABLET 5000 UNITS PO (09:14)
[2022-08-02] MEDS: APIXABAN 5 MG TABLET PO ×2 (09:15→21:30)
[2022-08-02] MEDS: amLODIPine BESYLATE 2.5 MG TABLET PO (09:15)
[2022-08-02] MEDS: METOPROLOL TARTRATE 50 MG TAB PO ×2 (09:15→16:44)
[2022-08-02] MEDS: MULTIVITAMINS THERAPEUTIC TAB (*BKC) 1 TABLET PO (09:16)
[2022-08-02] MEDS: FUROSEMIDE INJ 40 MG/4 ML VIAL IV PUSH ×2 (09:17→16:45)
[2022-08-02] MEDS: metOLazone 5 MG TABLET PO (09:17)
[2022-08-02] MEDS: polyethylene glycoL 3350 17 GM POWD.PACK PO (09:17)
[2022-08-02] MEDS: LOSARTAN POTASSIUM 50 MG TABLET PO (09:17)
[2022-08-02] MEDS: METOPROLOL TARTRATE INJ 5 MG/5 ML VIAL IV PUSH (10:00)
--- NOTE | 2022-08-02 10:45 | PM.IMCN ---
Assessment and Plan Assessment and plan (1) Acute on chronic diastolic CHF (congestive heart failure): Code(s): I50.33 - Acute on chronic diastolic (congestive) heart failure Status: Acute (2) COPD exacerbation: Code(s): J44.1 - Chronic obstructive pulmonary disease with (acute) exacerbation Status: Acute (3) Atrial flutter: Code(s): I48.92 - Unspecified atrial flutter Status: Acute (4) Fever: Code(s): R50.9 - Fever, unspecified Status: Acute (5) KIRSTEN (obstructive sleep apnea): Code(s): G47.33 - Obstructive sleep apnea (adult) (pediatric) Status: Chronic (6) CKD (chronic kidney disease): Code(s): N18.9 - Chronic kidney disease, unspecified Status: Acute (7) Essential (primary) hypertension: Code(s): I10 - Essential (primary) hypertension Status: Acute Plan Patient has been admitted to cardiology service for CHF exacerbation. Patient also appears to cough with fever. Chest x-ray was personally reviewed pulmonary edema although pneumonia cannot be excluded. Patient was having fevers at home but not documented here. He has been started on IV diuretics with good urine output noted. Most likely the CHF exacerbation is related to his uncontrolled heart rate. No recent echocardiogram on record here. Repeat echocardiogram if appropriate per Cardiology. Creatinine has climbed to 1.7 although his admission creatinine may have been falsely low given his fluid overload. Baseline creatinine is unclear since he has wide range of values over the past few years. Consider that some of the chest x-ray findings may be related to pneumonia, we will start IV antibiotics. Will check sputum culture as well as urine antigens. Blood cultures have been collected. Influenza, RSV and COVID testing were negative. Add Xopenex. Consider steroids. Will continue to follow along with you. Thank you so much for allowing us to be apart of this patient's care. HPI Data of Consult Consult date: 08/02/22 Requesting Physician: Steff Dacosta MD Primary Care Provider: Lucio Oliveira MD Consult Narrative Narrative: Danial Wilson is a 76 year old male with dCHF, KIRSTEN, HTN, CKD and COPD here for SOB, cough, fever and fluid overload. Patient also has a history of atrial fibrillation noted to be new onset in January 2022. He was noted to have atrial flutter with rapid ventricular response when he was seen by Cardiology in June. Also noted to have increasing shortness of breath and worsening edema at that time. He was started on Eliquis and his metoprolol was increased. Plan was for patient to return for NED guided cardioversion scheduled for 08/01/2022. Patient has a chronic productive cough from his COPD. He is not on home oxygen. He does wear BiPAP at night. He uses the nebulizer treatments 4 times a day. Patient has noted that his cough has worsened over the past 3-4 days productive of green sputum. No hemoptysis. He has been having fevers to 101.0. No chest pain but has been having increasing shortness of breath. He has orthopnea but no PND. He has nocturia but this is chronic. He has noted increasing pedal edema over the past 6 months. His and other healthcare providers have noted increased heart rate but the patient denies having any sensation of elevated heart rate. He denies any nausea, vomiting or diarrhea. He stopped using his nebulizer treatments 2 days prior to admission due to coughing but has continued to wear his BiPAP at night. He has also stopped some on his home medications prior to admission but does not know which ones. He has been recently vaccinated for COVID and influenza. Patient arrived to have his NED guided cardioversion but given the current symptoms and his physical findings, the procedure was canceled and patient was admitted to the hospital for management of CHF exacerbation and for further treatment of his viral illness. [facility]
[2022-08-02] MEDS: SODIUM CHLORIDE 0.9% IV 1,000 ML 30 ML IV CONT (13:24)
[2022-08-02] MEDS: DOXYCYCLINE HYCLATE 100 MG TABLET PO ×2 (13:28→16:52)
[2022-08-02] MEDS: guaiFENesin 12 HR 600 MG TABCR PO ×2 (13:28→21:30)
--- NOTE | 2022-08-02 16:04 | PM.PNCARD ---
Progress Note: A&P Assessment and Plan (1) Acute on chronic diastolic CHF (congestive heart failure): Code(s): I50.33 - Acute on chronic diastolic (congestive) heart failure Status: Acute Assessment and Plan: Patient presents with acute on chronic CHF, due to his underlying morbidities and his a flutter RVR. continue furosemide 40 mg IV push b.i.d.. borderline hypokalemia, continue potassium Daily BMP, follow renal function because of elevated creatinine Control heart rate (2) Atrial flutter: Code(s): I48.92 - Unspecified atrial flutter Status: Acute Assessment and Plan: A flutter RVR, recent onset Heart rate better with IV + po metoprolol Continue Eliquis Delayed the NED guided cardioversion with anesthesia until the patient's respiratory status is better controlled. Will schedule for 1 p.m. (3) Chronic kidney disease, stage 2 (mild): Code(s): N18.2 - Chronic kidney disease, stage 2 (mild) Status: Acute Assessment and Plan: Has CKD, elevated creatinine this morning noted but patient still looks volume overloaded. Continue IV furosemide, continue daily BMP (4) Cough: Code(s): R05.9 - Cough, unspecified Status: Acute Assessment and Plan: Patient has a cough and fever, intermittent mild hypoxia, not responding well to home therapy with his inhalers and albuterol nebulizer. Appears to have a COPD exacerbation, possibly bronchitis Neg for COVID, influenza, RSV Blood cultures pending for fever Consulted hospitalist; appreciate their input. (5) Fever: Code(s): R50.9 - Fever, unspecified Status: Acute Assessment and Plan: As above (6) COPD exacerbation: Code(s): J44.1 - Chronic obstructive pulmonary disease with (acute) exacerbation Status: Acute Assessment and Plan: As above Subjective Date/time seen: Patient with recent onset of atrial flutter RVR who came in yesterday for elective NED guided cardioversion. However he was in and acute on chronic diastolic heart failure, with a cough and fever so the procedure was canceled and he was admitted to treat the a flutter RVR, CHF and cough. 08/02/22 16:04 Cough has improved. No fevers. Denies shortness of breath. Remains in a flutter, with RVR a lot during the night and this morning but with IV and p.o. metoprolol his heart rate is generally now in the 80s. SBP running 100-118, occasionally in the 90s yesterday. Appreciate hospitalist's evaluation; he has been started on antibiotics, Xopenex added, more cultures performed. Patient is concerned about the cost of the hospitalization and would like to be discharged as soon as reasonable. Creatinine has increased to 1.7. ProBNP was 1300. Review of Systems Review of Systems: No chest pain or shortness of breath. Cough productive of very thick fox, milky and pink sputum. says he is urinating a normal amount. No abdominal pain. Exam Narrative: at bedside Const: General: cooperative and comfortable; No confusion Orientation/consciousness: oriented to person, patient oriented x3 and No confusion Other: morbidly obese HENMT: Mouth: Yes moist mucous membranes Eyes: General: appearance normal, both eyes and all related structures Neck: Neck: supple Resp: Effort & Inspection: normal respiratory effort Auscultation: rales Other: rales 1/3 up right, based on left Cardio: Rate: regular rate Rhythm: regular rhythm Heart sounds: no murmurs GI: Inspection: normal to inspection GI Palp: No abdominal tenderness Skin: General skin exam: normal color and no rashes or lesions noted Neuro: General: oriented to person, patient oriented x3 and No confusion Extrem: Right lower extremity: no edema Left lower extremity: no edema Psych: Appearance: grossly normal Mental Status: mental status grossly normal Objective Data Vital Signs Vital Signs:
[2022-08-02] MEDS: traZODone HCL 50 MG TABLET 200 MG PO (21:30)
[2022-08-02] MEDS: clonazePAM (*CRX) 0.5 MG TABLET 2 MG PO (21:30)
[2022-08-02] MEDS: PRAMIPEXOLE 1 MG TABLET 2 MG PO (21:30)
[2022-08-03] VITALS (39 sets, daily range): BP systolic 79–133; BP diastolic 39–81; PULSE 61–129; RESP 12–28; TEMP 35.8–36.4; O2SAT 92–100
[2022-08-03 05:10] LABS: Basophils Absolute Auto 0.1 K/mm3 (0.0-0.1); Basophils Percent Auto 0.9 % (0.2-1.2); Eosinophils Absolute Auto 0.6 K/mm3 (0-0.3); Hematocrit 37.2 % (42.0-52.0); Immature Granulocyte Absolute 0.03 K/mm3 (0.00-0.031); Immature Granulocyte Percent A 0.4 % (0-0.5); Lymphocytes Absolute Auto 1.57 K/mm3 (0.9-3.2); Lymphocytes Percent Auto 20.1 % (18.3-44.2); Mean Corpuscular HGB Conc 32.3 g/dl (32-36); Mean Corpuscular Hemoglobin 30.5 pg (26-34); Mean Corpuscular Volume 94.7 fl (80-100); Mean Platelet Volume 9.7 fl (7.4-10.4); Monocytes Absolute Auto 0.5 K/mm3 (0.1-0.6); Monocytes Percent Auto 6.4 % (2.6-8.5); Neutrophils Absolute Auto 5.1 K/mm3 (1.3-6.7); Neutrophils Percent Auto 65.2 % (45.5-73.1); Platelet Count Result 267 k/mm3 (150-375); Red Blood Count 3.93 M/mm3 (4.6-6.20); Red Cell Distribution Width 13.8 % (11.5-14.5); White Blood Count 7.8 K/mm3 (4.5-10.0)
[2022-08-03 09:01] LABS: Alanine Aminotransferase 35 U/L (6-50); Alkaline Phosphatase 123 U/L (38-126); Anion Gap 9 mmol/L (8-16); Aspartate Amino Transferase 46 U/L (17-59); Blood Urea Nitrogen 29 mg/dL (9-20); Calcium 8.7 mg/dL (8.4-10.2); Carbon Dioxide 33 mmol/L (22-30); Chloride 94 mmol/L (98-107); Estimated CRCL calculation 42 ml/min; Estimated Glomerular Filt Rate 35; Glucose 107 mg/dL (65-110); Magnesium 2.1 mg/dL (1.6-2.3); Phosphorus 5.3 mg/dL (2.5-4.5); Potassium 3.2 mmol/L (3.4-5.0); Sodium 136 mmol/L (137-145)
[2022-08-03] MEDS: FLUTICASONE/UMECLIDIN/VILANTER 100-62.5-25 MCG ELLIPTA 1 PUFF INHALATION (09:14)
--- NOTE | 2022-08-03 09:27 | PC.NURSE ---
This underwriter solicitation director to Dr Dacosta whom said ok to give medication with sips of water and remained NPO for procedure today.
[2022-08-03] MEDS: ASPIRIN 81 MG CHEWABLE TABLET PO (09:37)
[2022-08-03] MEDS: METOPROLOL TARTRATE INJ 5 MG/5 ML VIAL IV PUSH (09:37)
[2022-08-03] MEDS: ROSUVASTATIN 10 MG TABLET 20 MG PO (09:37)
[2022-08-03] MEDS: amLODIPine BESYLATE 2.5 MG TABLET PO (09:38)
[2022-08-03] MEDS: DOXYCYCLINE HYCLATE 100 MG TABLET PO ×2 (09:38→16:56)
[2022-08-03] MEDS: DICLOFENAC SOD 25 MG TABLET.EC 50 MG PO ×2 (09:38→16:57)
[2022-08-03] MEDS: polyethylene glycoL 3350 17 GM POWD.PACK PO (09:38)
[2022-08-03] MEDS: PANTOPRAZOLE 40 MG TABLET PO (09:38)
[2022-08-03] MEDS: CHOLECALCIFEROL 1,000 UNITS TABLET 5000 UNITS PO (09:38)
[2022-08-03] MEDS: guaiFENesin 12 HR 600 MG TABCR PO ×2 (09:39→21:45)
[2022-08-03] MEDS: MULTIVITAMINS THERAPEUTIC TAB (*BKC) 1 TABLET PO (09:39)
[2022-08-03] MEDS: LOSARTAN POTASSIUM 50 MG TABLET PO (09:40)
[2022-08-03] MEDS: metOLazone 5 MG TABLET PO (09:40)
[2022-08-03] MEDS: METOPROLOL TARTRATE 50 MG TAB PO ×2 (09:40→16:57)
[2022-08-03] MEDS: FUROSEMIDE INJ 40 MG/4 ML VIAL IV PUSH (09:40)
[2022-08-03] MEDS: APIXABAN 5 MG TABLET PO ×2 (09:40→21:44)
[2022-08-03] MEDS: POTASSIUM CHLORIDE 20 MEQ TABLET PO (09:59)
--- NOTE | 2022-08-03 11:00 | ECG_ITS ---
Measurements Intervals [place] Rate: 84 P: [place]: 0 QRS: -40 QRSD: 154 T: 24 QT: 436 QTc: 517 Interpretive Statements ATRIAL FLUTTER LEFT AXIS DEVIATION RIGHT BUNDLE BRANCH BLOCK BASELINE ARTIFACT- I, II, III, AVR, AVL ABNORMAL ECG COMPARED TO ECG 08/01/2022 12:07:58 HEART RATE HAS DECREASED Electronically Signed On 08-03-2022 13:06:52 HOUSING PROPERTY MANAGER by Stoney Dodd D.O.
--- NOTE | 2022-08-03 11:33 | WPDHPUPDATE1 ---
History and Physical Update Update Date/Time: 08/03/22 11:33 Patient with atrial flutter RVR and CHF, on Eliquis for the past 2 weeks, here for a NED guided cardioversion. History and Physical has been reviewed, including an updated exam of the patient. There are NO changes in the patient's condition. Risks, benefits, and alternatives have been discussed and questions answered. Patient agrees to proceed with procedure.
--- NOTE | 2022-08-03 11:38 | WPDANESEPPF ---
Anes - Initial Pre Proc Eval Procedure: Operation Date: 08/01/22 14:00 Proposed Procedures p Trans Esophageal Echo - Steff Dacosta MD s Electrical Cardioversion - Steff Dacosta MD Operation Date: 08/03/22 13:00 Proposed Procedures p Electrical Cardioversion - Steff Dacosta MD s Trans Esophageal Echo - Steff Dacosta MD Date/Time: 08/03/22 11:38 Surgeon: Setff Dacosta MD Pre Op Diagnosis: A-fib Patient Data Age: 76 Gender: M Height: 1.75 m Weight: 145.1 kg Last Vital Signs Temp 96.5 F L 08/03/22 07:40 Pulse 126 H 08/03/22 10:00 Resp 16 08/03/22 09:27 BP 104/81 08/03/22 07:40 Pulse Ox 97 08/03/22 07:40 O2 Del Method Room Air 08/03/22 08:00 Allergies Allergy/AdvReac Type Severity Reaction Status Date / Time codeine AdvReac Mild CONSTIPATIO Verified 08/01/22 12:18 N methylprednisolone AdvReac Mild Vomiting Verified 08/01/22 12:18 prednisone AdvReac Unknown Vomiting Verified 08/01/22 12:18 Home Medications Medication Instructions Recorded Confirmed Type lysine HCl 1,000 mg tablet 1,000 mg PO DAILY 05/30/19 07/28/22 History multivitamin (Multiple Vitamins 1 tablet PO DAILY 05/30/19 07/28/22 History tablet) ferrous sulfate 325 mg (65 mg 325 mg PO DAILY #60 tabs 12/16/19 07/28/22 Rx iron) tablet oxybutynin chloride 15 mg 15 mg PO DAILY 04/11/21 07/28/22 History tablet,extended release 24 hr cholecalciferol (vitamin D3) 100 5,000 unit PO DAILY 04/18/21 07/28/22 History mcg (4,000 unit) capsule (Vitamin D3) aspirin 81 mg tablet 81 mg PO DAILY 06/11/21 07/28/22 History polyethylene glycol 3350 17 gram 17 g PO QAM #60 ea 06/18/21 07/28/22 Rx oral powder packet (Miralax) trazodone 50 mg tablet 200 mg PO HS #120 tabs 06/18/21 07/28/22 Rx losartan 50 mg tablet 50 mg PO DAILY #90 tabs 07/19/21 08/01/22 Rx vibegron 75 mg tablet (Gemtesa) 75 mg PO DAILY 07/19/21 07/28/22 History rosuvastatin 20 mg tablet See Rx Instructions .Route 07/22/21 07/28/22 Rx .COMPLEX #90 tabs furosemide 40 mg tablet 40 mg PO DAILY #90 tabs 11/03/21 07/28/22 Rx albuterol sulfate 90 mcg/actuation 2 inh inhalation Q4H PRN shortness 12/03/21 08/01/22 Rx aerosol inhaler of breath or wheezing #8.5 grams balsalazide 750 mg capsule 2,250 mg PO BID 02/16/22 07/28/22 History cyclobenzaprine 10 mg tablet 10 mg PO TID PRN pain #20 tabs 03/31/22 07/28/22 Rx diclofenac potassium 50 mg tablet 50 mg PO BID #60 tabs 03/31/22 07/28/22 Rx metoprolol tartrate 25 mg tablet 12.5 mg PO BID #90 tabs 05/02/22 08/01/22 Rx potassium chloride 20 mEq 20 meq PO DAILY #90 tabs 05/22/22 07/28/22 Rx tablet,extended release(part/cryst) (Klor-Con M) clonazepam 2 mg tablet 2 mg PO QHS 90 days #90 tabs 05/23/22 07/28/22 Rx fluticasone fur. 100 mcg-umeclid 1 inh inhalation DAILY #60 ea 05/23/22 07/28/22 Rx 62.5 mcg-vilant 25 mcg inhalat.powder (Trelegy Ellipta) albuterol sulfate 2.5 mg/3 mL 2.5 mg (3 mL) inhalation Q4-6H PRN 05/26/22 08/01/22 Rx (0.083 %) solution for nebulization shortness of breath or wheezing #90 mL omeprazole 20 mg capsule,delayed 20 mg PO DAILY #90 caps 06/20/22 07/28/22 Rx release metolazone 5 mg tablet 5 mg PO DAILY #30 tabs 06/27/22 07/28/22 Rx amlodipine 2.5 mg tablet 2.5 mg PO DAILY #90 tabs 07/12/22 08/01/22 Rx pramipexole 1 mg tablet 2 mg PO HS #60 tabs 07/14/22 07/28/22 Rx apixaban 5 mg tablet (Eliquis) 5 mg PO BID 07/28/22 08/01/22 History Laboratory Tests 08/01/22 08/03/22 08/03/22 13:45 04:54 08:38 WBC 7.8 K/mm3 K/mm3 (4.5-10.0) RBC 3.93 M/mm3 L M/mm3 (4.6-6.20) Hgb 12.0 g/dL L g/dL (14.0-18.0) Hct 37.2 % L % (42.0-52.0) MCV 94.7 fl fl (80-100) MCH 30.5 pg pg (26-34) MCHC 32.3 g/dl g/dl (32-36) RDW 13.8 % % (11.5-14.5) Plt Count 267 k/mm3 k/mm3 (150-375) MPV 9.7 fl fl (7.4-10.4) Immature Gran % (Auto) 0.4 % %
--- NOTE | 2022-08-03 12:18 | PM.OP ---
Procedure Note - Brief Procedure Note - Brief Date of procedure: 08/03/22 Pre-op diagnosis: atrial flutter RVR Atrial flutter RVR, acute on chronic diastolic CHF Post-op diagnosis: Other (Restorationism of sinus rhythm) Procedure performed: NED guided cardioversion with anesthesia Description of procedure: Successful cardioversion to sinus rhythm Surgeon: Steff Dacosta MD Condition: Stable Disposition: Floor
--- NOTE | 2022-08-03 12:20 | WPDTECDV ---
NED with Cardioversion Date of procedure: 08/03/22 Procedure Type: Transesophageal ECHO guided cardioversion with anesthesia assistance Diagnosis: A flutter RVR Indications: 76-year-old male with a flutter RVR and acute on chronic diastolic heart failure Description of Procedure: Procedure: After informed consent the patient had Hurricaine spray the hypopharynx. The patient had sedation with the assistance of anesthesia. The transesophageal echo probe was introduced in the esophagus without difficulty. Imaging was obtained in multiplane views. The patient tolerated the procedure well with no complications. Findings: The left atrium was moderately larged. There was spontaneous contrast but no thrombus present in the left atrium or left atrial appendage. The atrial septum appeared intact. Mitral valve appeared normal, with no stenosis or prolapse. The left ventricle had had normal size with mild LVH with mild global hypokinesis. The ejection fraction is estimated to be: 45-50%. The aortic root and valve were normal. The ascending aorta, aortic arch and descending thoracic aorta were normal. The right atrium, and right ventricle or moderately enlarged. The tricuspid valve and pulmonary artery appeared normal. There is no pericardial effusion. Colorflow Doppler Findings: Moderate mitral regurgitation, moderate tricuspid regurgitation Cardioversion: After informed consent and the above conscious sedation, the patient underwent elective electrical synchronized cardioversion with 100 joules of biphasic energy and converted to normal sinus rhythm. There were no complications. Sedation: Per Anesthesia Findings: Mild global hypokinesis, EF 45-50%. Mild left ventricular hypertrophy. Biatrial enlargement Right ventricular enlargement Spontaneous contrast in the left atrium. Moderate mitral and tricuspid regurgitation Conclusion: Successful NED guided cardioversion to normal sinus rhythm Recommendation: Continue Eliquis and metoprolol. Continue Lasix for CHF; change to p.o. Home today or tomorrow depending on hospitalists' recommendation regarding his respiratory problems.
--- NOTE | 2022-08-03 13:00 | ECG_ITS ---
Measurements Intervals [place] Rate: 63 P: 67 HI: 209 QRS: -49 QRSD: 154 T: -10 QT: 457 QTc: 468 Interpretive Statements SINUS RHYTHM RIGHT BUNDLE BRANCH BLOCK LEFT ANTERIOR FASCICULAR BLOCK LEFT VENTRICULAR HYPERTROPHY MINIMAL Q WAVES- HIGH LATERAL LEADS ABNORMAL ECG COMPARED TO ECG 08/03/2022 11:33:04 SINUS RHYTHM NOW PRESENT LEFT ANTERIOR FASCICULAR BLOCK NOW PRESENT LEFT VENTRICULAR HYPERTROPHY NOW PRESENT Electronically Signed On 08-03-2022 13:12:28 [employer] by Stoney Dodd D.O.
--- NOTE | 2022-08-03 13:11 | PC.NURSE ---
Received pt back from procedure. VS stable, denies pain nor discomfort. Will continue to monitor.
[2022-08-03] MEDS: POTASSIUM CHLORIDE 20 MEQ TABLET 40 MEQ PO (14:01)
[2022-08-03] MEDS: FUROSEMIDE 40 MG TABLET PO (16:58)
--- NOTE | 2022-08-03 17:54 | PM.IMPN ---
Progress Note: A&P Assessment and Plan (1) Acute on chronic diastolic CHF (congestive heart failure): Code(s): I50.33 - Acute on chronic diastolic (congestive) heart failure Status: Acute (2) COPD exacerbation: Code(s): J44.1 - Chronic obstructive pulmonary disease with (acute) exacerbation Status: Acute (3) Atrial flutter: Code(s): I48.92 - Unspecified atrial flutter Status: Acute (4) Fever: Code(s): R50.9 - Fever, unspecified Status: Acute (5) KIRSTEN (obstructive sleep apnea): Code(s): G47.33 - Obstructive sleep apnea (adult) (pediatric) Status: Chronic (6) CKD (chronic kidney disease): Code(s): N18.9 - Chronic kidney disease, unspecified Status: Acute (7) Essential (primary) hypertension: Code(s): I10 - Essential (primary) hypertension Status: Acute Plan Patient was admitted to cardiology service for CHF exacerbation. Patient also with cough and fever. Chest x-ray was personally reviewed showing pulmonary edema although pneumonia cannot be excluded. Patient was having fevers at home but not documented here. He has been started on IV diuretics with good urine output noted. Most likely the CHF exacerbation is related to his uncontrolled heart rate. No recent echocardiogram on record here. Repeat echocardiogram if appropriate per Cardiology. Creatinine has climbed to 1.7 although his admission creatinine may have been falsely low given his fluid overload. Baseline creatinine is unclear since he has wide range of values over the past few years. Consider that some of the chest x-ray findings may be related to pneumonia, we will start IV antibiotics. Will check sputum culture as well as urine antigens. Blood cultures have been collected. Influenza, RSV and COVID testing were negative. Add Xopenex. Consider steroids. Will continue to follow along with you. Thank you so much for allowing us to be apart of this patient's care. 08/03/22 - Patient underwent NED CV today with success. He feels better related to the diuresis and the return to sinus mechanism. He still has cough but seems to be more chronic. No fevers. WBC normal now. Eosinophilia noted. BCx NGTD. Sputum pending. BP soft so will stop his Norvasc. May need to back off Lasix as well. Cr worsening. Will check urine for eosinophils to exclude AIN. Stop diclofenac Subjective Date/time seen: 08/03/22 17:54 Interval history: 76yo male with dCHF, KIRSTEN, HTN, CKD and COPD here for SOB, cough, fever and fluid overload.? Cough productive of greeen sputum but this is mostly chronic but feels it may have owrsened over the past couple of weeks. Eating well. +LAY but no SOB at rest. Tolerating BiPAP. No fever or chills. No CP. Exam Narrative: AF 96.7 88/50 83 20 93% ra Gen - NARD sitting at the side of the bed Chest - bibasilar inspiratory crackles o/w distant BS. nml RR CV - RRR. S1-S2. Tele showing NSR Abd - Soft. Nontender. Obese. Positive bowel sounds. Ext - trace pedal pitting edema. Psych - normal mood and affect. Patient is pleasant and cooperative. Skin - warm and dry. No rashes noted. Objective Data Vital Signs Vital Signs: Vital Signs - 24 hr 08/02/22 18:00 08/02/22 19:59 08/02/22 21:01 Temperature Pulse Rate 67 67 79 Respiratory Rate 20 18 Blood Pressure Pulse Oximetry 94 Oxygen Delivery Room Air Oxygen Flow Rate 08/02/22 21:13 08/02/22 21:22 08/02/22 21:28 Temperature Pulse Rate 83 89 87 Respiratory Rate 18 18 Blood Pressure Pulse Oximetry 95 Oxygen Delivery Autopap Oxygen Flow Rate 08/02/22 20:00 08/02/22 20:00 08/02/22 22:00 Temperature 98.1 F Pulse Rate 72 83 65 Respiratory Rate 24 H Blood Pressure 107/54 L Pulse Oximetry 94 Oxygen Delivery Oxygen Flow Rate 08/02/22 23:34 08/03/22 00:00 08/03/22 00:00 Temperature 98.2 F Pulse Rate 73 64 67 Respiratory Rate 22 H 20 Blood Pressure
[2022-08-03] MEDS: PRAMIPEXOLE 1 MG TABLET 2 MG PO (21:44)
[2022-08-03] MEDS: clonazePAM (*CRX) 0.5 MG TABLET 2 MG PO (21:44)
[2022-08-03] MEDS: traZODone HCL 50 MG TABLET 200 MG PO (21:44)
[2022-08-03 22:45] LABS: Eosinophil Urine Rare % (None Seen)
[2022-08-03 22:51] LABS: Creatinine Urine 83.8 mg/dL
[2022-08-03 22:55] LABS: Sodium Urine Random 103 meq/L
[2022-08-04] VITALS (25 sets, daily range): BP systolic 100–130; BP diastolic 50–62; PULSE 55–83; RESP 16–22; TEMP 35.7–36.2; O2SAT 93–97; BMI 46.4
[2022-08-04] MEDS: DOXYCYCLINE HYCLATE 100 MG TABLET PO ×2 (05:20→17:21)
[2022-08-04 05:30] LABS: Albumin Level 3.6 g/dL (3.5-5.1); Anion Gap 9 mmol/L (8-16); Blood Urea Nitrogen 35 mg/dL (9-20); Calcium 8.5 mg/dL (8.4-10.2); Carbon Dioxide 33 mmol/L (22-30); Chloride 97 mmol/L (98-107); Creatine Kinase 252 U/L (55-170); Estimated CRCL calculation 25 ml/min; Estimated Glomerular Filt Rate 19; Glucose 101 mg/dL (65-110); Magnesium 2.2 mg/dL (1.6-2.3); Phosphorus 6.7 mg/dL (2.5-4.5); Potassium 3.7 mmol/L (3.4-5.0); Sodium 139 mmol/L (137-145)
[2022-08-04] MEDS: FLUTICASONE/UMECLIDIN/VILANTER 100-62.5-25 MCG ELLIPTA 1 PUFF INHALATION (09:26)
[2022-08-04] MEDS: LOSARTAN POTASSIUM 50 MG TABLET PO (09:36)
[2022-08-04] MEDS: CHOLECALCIFEROL 1,000 UNITS TABLET 5000 UNITS PO (09:36)
[2022-08-04] MEDS: ASPIRIN 81 MG CHEWABLE TABLET PO (09:36)
[2022-08-04] MEDS: PANTOPRAZOLE 40 MG TABLET PO (09:37)
[2022-08-04] MEDS: METOPROLOL TARTRATE 50 MG TAB PO ×2 (09:37→17:19)
[2022-08-04] MEDS: MULTIVITAMINS THERAPEUTIC TAB (*BKC) 1 TABLET PO (09:37)
[2022-08-04] MEDS: guaiFENesin 12 HR 600 MG TABCR PO ×2 (09:37→20:53)
[2022-08-04] MEDS: FUROSEMIDE 40 MG TABLET PO (09:37)
[2022-08-04] MEDS: APIXABAN 5 MG TABLET PO ×2 (09:37→20:53)
[2022-08-04] MEDS: ROSUVASTATIN 10 MG TABLET 20 MG PO (09:38)
[2022-08-04] MEDS: metOLazone 5 MG TABLET PO (09:39)
[2022-08-04] MEDS: polyethylene glycoL 3350 17 GM POWD.PACK PO (09:39)
--- NOTE | 2022-08-04 12:43 | PM.CNNEP ---
Assessment and Plan Assessment and plan (1) SHUBHAM (acute kidney injury): Code(s): N17.9 - Acute kidney failure, unspecified Status: Acute Assessment and Plan: suspect related to diuresis in the context of atrial flutter and possibly relative hypotension evaluation to date noted: renal ultrasound unremarkable urine electrolytes prerena urine eosinophils positive -- possible AIN (but seems a bit rapid for this) CPK not an issue BP medications and diuretics on hold creatinine slowly improving follow repeat labs and UOP (2) Stage 3a chronic kidney disease: Code(s): N18.31 - Chronic kidney disease, stage 3a Status: Acute Assessment and Plan: baseline creatinine (at its best) runs around 1.1 - 1.4mg/dl) he has in the past been sensitive to overdiuresis presumably due to KIRSTEN, HTN, and vascualr disease (3) Acute on chronic diastolic CHF (congestive heart failure): Code(s): I50.33 - Acute on chronic diastolic (congestive) heart failure Status: Acute Assessment and Plan: as noted on admission improvement noted with diuresis possibly exacerbated by atrial flutter(?) Cardiology followoing (4) Essential (primary) hypertension: Code(s): I10 - Essential (primary) hypertension Status: Acute Assessment and Plan: soft on admission BP medications on hold follow trend of hemodynamics (5) Fever: Code(s): R50.9 - Fever, unspecified Status: Acute Assessment and Plan: possibly due to pneumonia? cultures in progress on antibiotics viral disease (influenza, COVID, and RSV) ruled out Long and extensive discussion (greater than 20 minutes) with the patient as well as at bedside regarding all the above issues including his renal dysfunction and the hope that with improvement in his hemodynamics with resolution of his atrial flutter that his kidney function will slowly return back to baseline. Will continue to follow. History of Present Illness Reason for Consult Consult date: 08/04/22 Reason for consult: acute renal failure (on chronic kidney disease) Chief Complaint Chief complaint: atrial flutter RVR History of Present Illness Narrative: The patient is a 76-year-old male with a past medical history as outlined below who presented as a direct admission for further evaluation of shortness of breath, cough, fever, and symptoms of fluid overload. The patient was noted be in atrial fibrillation / atrial flutter in [place] of 2022. He was treated with conservative therapy including anticoagulation and rate control with metoprolol and he was scheduled for a NED guided cardioversion a few days ago in the hopes of this being a better long-term solution. However, on presentation for his cardioversion, he was noted to be more short of breath than usual with a productive cough of green sputum and a fever of 101. Given these constellation of symptoms, his NED cardioversion was canceled and he was subsequent admitted to the hospital for treatment of his CHF exacerbation. Since his admission, he has been aggressively diuresed with improvement in his fluid /volume overload and he was empirically treated with antibiotic therapy for on the assumption of possible pneumonia. He subsequently underwent NED cardioversion yesterday and remains in normal sinus rhythm at this time. During his IV diuresis, his creatinine worsened up to as high as 3.2 mg/dL but by labs done this morning, it has come down to 2.5 mg/dL. He continues to make reasonable urine output even though his diuretics are on hold. Renal consultation was requested due to his acute kidney injury on top of his baseline kidney disease. The patient is quite known to me as I have take care of his outpatient chronic kidney disease needs. His creatinine has fluctuated widely depending on hospitalizations, over diuresis, medication changes, and acute illnesses but seems to be
--- NOTE | 2022-08-04 12:44 | PM.IMPN ---
Progress Note: A&P Assessment and Plan (1) Acute kidney failure: Code(s): N17.9 - Acute kidney failure, unspecified Status: Inactive (2) Acute on chronic diastolic CHF (congestive heart failure): Code(s): I50.33 - Acute on chronic diastolic (congestive) heart failure Status: Acute (3) COPD exacerbation: Code(s): J44.1 - Chronic obstructive pulmonary disease with (acute) exacerbation Status: Acute (4) Atrial flutter: Code(s): I48.92 - Unspecified atrial flutter Status: Acute (5) Fever: Code(s): R50.9 - Fever, unspecified Status: Acute (6) KIRSTEN (obstructive sleep apnea): Code(s): G47.33 - Obstructive sleep apnea (adult) (pediatric) Status: Chronic (7) CKD (chronic kidney disease): Code(s): N18.9 - Chronic kidney disease, unspecified Status: Acute (8) Essential (primary) hypertension: Code(s): I10 - Essential (primary) hypertension Status: Acute Plan Patient was admitted to cardiology service for CHF exacerbation. Patient also with cough and fever. Chest x-ray was personally reviewed showing pulmonary edema although pneumonia cannot be excluded. Patient was having fevers at home but not documented here. He has been started on IV diuretics with good urine output noted. Most likely the CHF exacerbation is related to his uncontrolled heart rate. No recent echocardiogram on record here. Repeat echocardiogram if appropriate per Cardiology. Creatinine has climbed to 1.7 although his admission creatinine may have been falsely low given his fluid overload. Baseline creatinine is unclear since he has wide range of values over the past few years. Consider that some of the chest x-ray findings may be related to pneumonia, we will start IV antibiotics. Will check sputum culture as well as urine antigens. Blood cultures have been collected. Influenza, RSV and COVID testing were negative. Add Xopenex. Consider steroids. Will continue to follow along with you. Thank you so much for allowing us to be apart of this patient's care. 08/03/22 - Patient underwent NED CV today with success. He feels better related to the diuresis and the return to sinus mechanism. He still has cough but seems to be more chronic. No fevers. WBC normal now. Eosinophilia noted. BCx NGTD. Sputum pending. BP soft so will stop his Norvasc. May need to back off Lasix as well. Cr worsening. Will check urine for eosinophils to exclude AIN. Stop diclofenac 08/04/22 - Cr up to 3.2 today felt related to over diuresis. Consider also AIN with peripheral eosinophilia and positive urine eos. Hold diuretics. Hold losartan. Renal US showing no hydronephrosis. Check urine studies. Nephrology consult. Subjective Date/time seen: 08/04/22 12:44 Interval history: 76yo male with dCHF, KIRSTEN, HTN, CKD and COPD here for SOB, cough, fever and fluid overload.? Patient still with a cough productive yellow sputum. No chest pain or shortness of breath. No dyspnea on exertion. He did wear his mass last night. He has noted decreasing urine output today. Exam Narrative: AF 121/57 68 22 97% ra Gen - NARD sitting at the side of the bed Chest - By bases were crackles otherwise clear. CV - RRR with distant S1-S2. Abd - Soft. Nontender. Obese. Positive bowel sounds. Ext - trace pedal pitting edema. Psych - normal mood and affect. Patient is pleasant and cooperative. Skin - warm and dry. No rashes noted. Objective Data Vital Signs Vital Signs: Vital Signs - 24 hr 08/03/22 12:54 08/03/22 13:05 08/03/22 13:05 Temperature 96.7 F L Pulse Rate 67 65 69 Respiratory Rate 26 H 20 Blood Pressure 96/47 L 108/45 L Pulse Oximetry 95 96 Oxygen Delivery Room Air 08/03/22 13:35 08/03/22 14:03 08/03/22 14:12 Temperature 96.9 F L Pulse Rate 67 67 65 Respiratory Rate 22 H 20 20 Blood Pressure 94/73 L Pulse Oximetry 92 Oxygen Delivery 08/03/22 14:00 08/03/22
[2022-08-04 13:58] LABS: Chloride 93 mmol/L (98-107)
[2022-08-04 14:00] LABS: Anion Gap 5 mmol/L (8-16); Blood Urea Nitrogen 38 mg/dL (9-20); Calcium 8.5 mg/dL (8.4-10.2); Carbon Dioxide 34 mmol/L (22-30); Estimated CRCL calculation 32 ml/min; Estimated Glomerular Filt Rate 25; Glucose 120 mg/dL (65-110); Potassium 3.1 mmol/L (3.4-5.0); Sodium 132 mmol/L (137-145)
--- NOTE | 2022-08-04 15:04 | PM.PNCARD ---
Progress Note: A&P Assessment and Plan (1) Acute on chronic diastolic CHF (congestive heart failure): Code(s): I50.33 - Acute on chronic diastolic (congestive) heart failure Status: Acute Assessment and Plan: Patient presents with acute on chronic CHF, due to his underlying morbidities and his a flutter RVR. Diuretics on hold due to SHUBHAM borderline hypokalemia, continue potassium Daily BMP, follow renal function because of elevated creatinine (2) Atrial flutter: Code(s): I48.92 - Unspecified atrial flutter Status: Acute Assessment and Plan: A flutter RVR, recent onset S/p NED/DCCV now in NSR (3) Chronic kidney disease, stage 2 (mild): Code(s): N18.2 - Chronic kidney disease, stage 2 (mild) Status: Acute Assessment and Plan: Has CKD, elevated creatinine this morning noted but patient still looks volume overloaded. Nephrology consulted, appreciate their input (4) Cough: Code(s): R05.9 - Cough, unspecified Status: Acute Assessment and Plan: Patient has a cough and fever, intermittent mild hypoxia, not responding well to home therapy with his inhalers and albuterol nebulizer. Appears to have a COPD exacerbation, possibly bronchitis Neg for COVID, influenza, RSV Blood cultures NGTD Consulted hospitalist; appreciate their input. (5) Fever: Code(s): R50.9 - Fever, unspecified Status: Acute Assessment and Plan: As above (6) COPD exacerbation: Code(s): J44.1 - Chronic obstructive pulmonary disease with (acute) exacerbation Status: Acute Assessment and Plan: As above Subjective Date/time seen: 08/04/22 15:04 Cardiology follow up for atrial flutter Remains in sinus rhythm s/p DCCV. Stable from a cardiac standpoint. Review of Systems Constitutional: Constitutional: Reports difficulty sleeping (Due to coughing, has had to sit up to sleep at night.), Reports fatigue, Reports fever(s) and Reports lethargy Eyes: Eyes: Reports no additional eye complaints ENT: Denies epistaxis Cardiovascular: Cardiovascular: Denies chest pain, Reports pedal edema, Reports leg edema, Denies lightheadedness, Reports dyspnea and Reports dyspnea on exertion Respiratory: Respiratory: Reports chest congestion, Reports cough, Reports dyspnea, Reports dyspnea on exertion and Reports wheezing Gastrointestinal: Gastrointestinal: Denies abdominal pain and Denies hematochezia Genitourinary: Genitourinary: Denies hematuria Musculoskeletal: Musculoskeletal: Reports no additional musculoskeletal complaints Integumentary/Breasts: Skin/Breast: Reports system reviewed and no additional complaints, except as docu Neurologic: Reports system reviewed and no additional complaints, except as documented, Denies behavioral changes and Denies confusion Psychiatric: Psychiatric: Denies behavioral changes and Denies confusion Endocrine: Endocrine: Reports fatigue Allergic/Immunologic: Allergic/Immunologic: Reports wheezing Exam Const: General: cooperative, comfortable and uncomfortable (Frequent productive cough); No confusion Orientation/consciousness: oriented to person, patient oriented x3 and No confusion Other: morbidly obese HENMT: Mouth: Yes moist mucous membranes Eyes: General: appearance normal, both eyes and all related structures Neck: Neck: supple and no JVD (No discernible JVD in this obese neck) Resp: Effort & Inspection: normal respiratory effort Auscultation: rales and diminished lung sounds Other: rales bilateral bases Cardio: Rate: regular rate Rhythm: regular rhythm Heart sounds: no murmurs GI: Inspection: normal to inspection Skin: General skin exam: normal color and no rashes or lesions noted Neuro: General: oriented to person, patient oriented x3 and No confusion Extrem: Right lower extremity: no edema Left lower extremity: no edema Other: Mild pretibial edema and ankle edema
[2022-08-04] MEDS: traZODone HCL 50 MG TABLET 200 MG PO (20:54)
[2022-08-04] MEDS: clonazePAM (*CRX) 0.5 MG TABLET 2 MG PO (20:54)
[2022-08-04] MEDS: PRAMIPEXOLE 1 MG TABLET 2 MG PO (20:54)
[2022-08-05] VITALS (17 sets, daily range): BP systolic 102–123; BP diastolic 45–62; PULSE 53–77; RESP 18–20; TEMP 36.1–37.1; O2SAT 94–100; BMI 47.3
[2022-08-05 04:35] LABS: Legionella pneumophila Ag Ur Not Detected (Not Detected)
[2022-08-05 05:13] LABS: Basophils Absolute Auto 0.1 K/mm3 (0.0-0.1); Basophils Percent Auto 1.1 % (0.2-1.2); Eosinophils Absolute Auto 0.5 K/mm3 (0-0.3); Eosinophils Percent Auto 6.5 % (0-4.4); Hematocrit 34.7 % (42.0-52.0); Hemoglobin 11.4 g/dL (14.0-18.0); Immature Granulocyte Absolute 0.04 K/mm3 (0.00-0.031); Immature Granulocyte Percent A 0.6 % (0-0.5); Mean Corpuscular HGB Conc 32.9 g/dl (32-36); Mean Corpuscular Hemoglobin 31.3 pg (26-34); Mean Corpuscular Volume 95.3 fl (80-100); Mean Platelet Volume 9.5 fl (7.4-10.4); Monocytes Absolute Auto 0.5 K/mm3 (0.1-0.6); Monocytes Percent Auto 6.9 % (2.6-8.5); Neutrophils Absolute Auto 4.6 K/mm3 (1.3-6.7); Neutrophils Percent Auto 62.9 % (45.5-73.1); Platelet Count Result 263 k/mm3 (150-375); Red Blood Count 3.64 M/mm3 (4.6-6.20); Red Cell Distribution Width 13.8 % (11.5-14.5); White Blood Count 7.3 K/mm3 (4.5-10.0)
[2022-08-05 05:28] LABS: Complement C3 152 mg/dL (88-165)
[2022-08-05 05:41] LABS: Alanine Aminotransferase 30 U/L (6-50); Albumin Level 3.6 g/dL (3.5-5.1); Alkaline Phosphatase 100 U/L (38-126); Anion Gap 5 mmol/L (8-16); Aspartate Amino Transferase 45 U/L (17-59); Bilirubin,Total 0.5 mg/dL (0.2-1.3); Blood Urea Nitrogen 37 mg/dL (9-20); CRP 5.6 mg/dL (<1.0); Calcium 8.5 mg/dL (8.4-10.2); Carbon Dioxide 35 mmol/L (22-30); Chloride 91 mmol/L (98-107); Creatine Kinase 259 U/L (55-170); Estimated CRCL calculation 32 ml/min; Estimated Glomerular Filt Rate 25; Glucose 102 mg/dL (65-110); Magnesium 2.1 mg/dL (1.6-2.3); Phosphorus 5.6 mg/dL (2.5-4.5); Potassium 3.1 mmol/L (3.4-5.0); Sodium 131 mmol/L (137-145)
[2022-08-05] MEDS: DOXYCYCLINE HYCLATE 100 MG TABLET PO ×2 (06:31→18:12)
[2022-08-05] MEDS: ROSUVASTATIN 10 MG TABLET 20 MG PO (09:06)
[2022-08-05] MEDS: polyethylene glycoL 3350 17 GM POWD.PACK PO (09:07)
[2022-08-05] MEDS: guaiFENesin 12 HR 600 MG TABCR PO ×2 (09:07→22:02)
[2022-08-05] MEDS: PANTOPRAZOLE 40 MG TABLET PO (09:07)
[2022-08-05] MEDS: MULTIVITAMINS THERAPEUTIC TAB (*BKC) 1 TABLET PO (09:07)
[2022-08-05] MEDS: METOPROLOL TARTRATE 50 MG TAB PO ×2 (09:07→18:13)
[2022-08-05] MEDS: CHOLECALCIFEROL 1,000 UNITS TABLET 5000 UNITS PO (09:07)
[2022-08-05] MEDS: APIXABAN 5 MG TABLET PO ×2 (09:08→22:03)
[2022-08-05] MEDS: ASPIRIN 81 MG CHEWABLE TABLET PO (09:08)
[2022-08-05] MEDS: FLUTICASONE/UMECLIDIN/VILANTER 100-62.5-25 MCG ELLIPTA 1 PUFF INHALATION (09:59)
--- NOTE | 2022-08-05 12:00 | P.PNNP_ITS ---
Progress Note: A&P Assessment and Plan (1) SHUBHAM (acute kidney injury): Code(s): N17.9 - Acute kidney failure, unspecified Status: Acute Assessment and Plan: * suspect related to overdiuresis in the context of atrial flutter and possibly relative hypotension * evaluation to date noted: * renal ultrasound unremarkable * urine electrolytes prerena * urine eosinophils positive -- possible AIN (but seems a bit rapid for this) * CPK not an issue * BP medications and diuretics on hold * creatinine slowly improving if not stable * follow repeat labs and UOP (2) Stage 3a chronic kidney disease: Code(s): N18.31 - Chronic kidney disease, stage 3a Status: Acute Assessment and Plan: * baseline creatinine (at its best) runs around 1.1 - 1.4mg/dl) * he has in the past been sensitive to overdiuresis * presumably due to KIRSTEN, HTN, and vascualr disease (3) Acute on chronic diastolic CHF (congestive heart failure): Code(s): I50.33 - Acute on chronic diastolic (congestive) heart failure Status: Acute Assessment and Plan: * as noted on admission * improvement noted with diuresis * possibly exacerbated by atrial flutter(?) * Cardiology followoing (4) Essential (primary) hypertension: Code(s): I10 - Essential (primary) hypertension Status: Acute Assessment and Plan: * soft on admission * BP medications on hold * follow trend of hemodynamics (5) Fever: Code(s): R50.9 - Fever, unspecified Status: Acute Assessment and Plan: * possibly due to pneumonia? * cultures in progress * on antibiotics * viral disease (influenza, COVID, and RSV) ruled out Will continue to follow. Subjective Date/time seen: 08/05/22 12:00 No new issues or problems overnight; feels reasonably well but still has productive cough with white sputum; creatinine/renal function relatively stable but urine output has increased without any specific intervention to date; no other issues/concerns overnight or earlier this AM. Exam Narrative: General: WD/WN male/female in NAD Heart: normal S1 and S2; no rub Lungs: clear anteriorly; few bibasilar crackles Abdomen: soft, nontender, nondistended, positive bowel sounds Extremities: no cyanosis or clubbing; no edema Skin: warm and dry Objective Data Vital Signs Vital Signs: Vital Signs Temp Pulse Resp BP Pulse Ox O2 Del Method 08/05/22 12:00 63 08/05/22 12:00 98.6 F 60 18 115/45 L 95 08/05/22 10:00 61 08/05/22 10:07 62 18 08/05/22 10:00 58 L 18 08/05/22 08:00 77 08/05/22 08:00 98.6 F 67 18 102/51 L 96 08/05/22 09:07 70 08/05/22 08:00 Room Air 08/05/22 04:00 Room Air 08/05/22 00:00 Room Air 08/05/22 06:00 66 08/05/22 04:00 53 L 08/05/22 02:00 54 L 08/05/22 00:00 58 L 08/04/22 22:00 58 L 08/04/22 20:00 59 L 08/05/22 04:00 97 F L 59 L 20 103/51 L 99 08/04/22 20:00 Room Air 08/05/22 02:17 65 94 Autopap 08/05/22 02:16 65 18 08/05/22 02:08 68 18 08/05/22 00:00 97.6 F 59 L 20 123/54 L 100 08/04/22 20:00 97.0 F L 57 L 22 H 122/60 94 08/04/22 20:27 60
--- NOTE | 2022-08-05 12:00 | PM.PNNEP ---
Progress Note: A&P Assessment and Plan (1) SHUBHAM (acute kidney injury): Code(s): N17.9 - Acute kidney failure, unspecified Status: Acute Assessment and Plan: suspect related to overdiuresis in the context of atrial flutter and possibly relative hypotension evaluation to date noted: renal ultrasound unremarkable urine electrolytes prerena urine eosinophils positive -- possible AIN (but seems a bit rapid for this) CPK not an issue BP medications and diuretics on hold creatinine slowly improving if not stable follow repeat labs and UOP (2) Stage 3a chronic kidney disease: Code(s): N18.31 - Chronic kidney disease, stage 3a Status: Acute Assessment and Plan: baseline creatinine (at its best) runs around 1.1 - 1.4mg/dl) he has in the past been sensitive to overdiuresis presumably due to KIRSTEN, HTN, and vascualr disease (3) Acute on chronic diastolic CHF (congestive heart failure): Code(s): I50.33 - Acute on chronic diastolic (congestive) heart failure Status: Acute Assessment and Plan: as noted on admission improvement noted with diuresis possibly exacerbated by atrial flutter(?) Cardiology followoing (4) Essential (primary) hypertension: Code(s): I10 - Essential (primary) hypertension Status: Acute Assessment and Plan: soft on admission BP medications on hold follow trend of hemodynamics (5) Fever: Code(s): R50.9 - Fever, unspecified Status: Acute Assessment and Plan: possibly due to pneumonia? cultures in progress on antibiotics viral disease (influenza, COVID, and RSV) ruled out Will continue to follow. Subjective Date/time seen: 08/05/22 12:00 No new issues or problems overnight; feels reasonably well but still has productive cough with white sputum; creatinine/renal function relatively stable but urine output has increased without any specific intervention to date; no other issues/concerns overnight or earlier this AM. Exam Narrative: General: WD/WN male/female in NAD Heart: normal S1 and S2; no rub Lungs: clear anteriorly; few bibasilar crackles Abdomen: soft, nontender, nondistended, positive bowel sounds Extremities: no cyanosis or clubbing; no edema Skin: warm and dry Objective Data Vital Signs Vital Signs: Vital Signs Temp Pulse Resp BP Pulse Ox O2 Del Method 08/05/22 12:00 63 08/05/22 12:00 98.6 F 60 18 115/45 L 95 08/05/22 10:00 61 08/05/22 10:07 62 18 08/05/22 10:00 58 L 18 08/05/22 08:00 77 08/05/22 08:00 98.6 F 67 18 102/51 L 96 08/05/22 09:07 70 08/05/22 08:00 Room Air 08/05/22 04:00 Room Air 08/05/22 00:00 Room Air 08/05/22 06:00 66 08/05/22 04:00 53 L 08/05/22 02:00 54 L 08/05/22 00:00 58 L 08/04/22 22:00 58 L 08/04/22 20:00 59 L 08/05/22 04:00 97 F L 59 L 20 103/51 L 99 08/04/22 20:00 Room Air 08/05/22 02:17 65 94 Autopap 08/05/22 02:16 65 18 08/05/22 02:08 68 18 08/05/22 00:00 97.6 F 59 L 20 123/54 L 100 08/04/22 20:00 97.0 F L 57 L 22 H 122/60 94 08/04/22 20:27 60 95 Autopap 08/04/22 20:14 60 18 08/04/22 18:00 65 08/04/22 16:00 Room Air 08/04/22 16:00 68 08/04/22 17:19 96.8 F L 63 20 117/50 L 93 08/04/22 17:19 68 Intake/Output Intake/Output: Intake & Output 08/02/22 08/03/22 08/04/22 08/05/22 23:59 23:59 23:59 23:59 Intake Total 6069 085 0865 1100 Output Total 2150 900 1375 975 Balance -440 -110 525 125 Meds/Results Medications: Active Medications Generic Name Dose Route Start Last Admin Trade Name Freq PRN Reason Stop Dose Admin Acetaminophen 650 mg 08/01/22 16:33 Acetaminophen 325 Mg Tablet PO Q4H PRN Mild Pain (1-3) or Fever Albuterol 2.5 mg 08/01/22 16:36 Albuterol Sulfate Neb 2.5 Mg
--- NOTE | 2022-08-05 12:06 | PM.IMPN ---
Progress Note: A&P Assessment and Plan (1) Acute kidney failure: Code(s): N17.9 - Acute kidney failure, unspecified Status: Inactive (2) Acute on chronic diastolic CHF (congestive heart failure): Code(s): I50.33 - Acute on chronic diastolic (congestive) heart failure Status: Acute (3) COPD exacerbation: Code(s): J44.1 - Chronic obstructive pulmonary disease with (acute) exacerbation Status: Acute (4) Atrial flutter: Code(s): I48.92 - Unspecified atrial flutter Status: Acute (5) Fever: Code(s): R50.9 - Fever, unspecified Status: Acute (6) KIRSTEN (obstructive sleep apnea): Code(s): G47.33 - Obstructive sleep apnea (adult) (pediatric) Status: Chronic (7) CKD (chronic kidney disease): Code(s): N18.9 - Chronic kidney disease, unspecified Status: Acute (8) Essential (primary) hypertension: Code(s): I10 - Essential (primary) hypertension Status: Acute Plan Patient was admitted to cardiology service for CHF exacerbation. Patient also with cough and fever. Chest x-ray was personally reviewed showing pulmonary edema although pneumonia cannot be excluded. Patient was having fevers at home but not documented here. He has been started on IV diuretics with good urine output noted. Most likely the CHF exacerbation is related to his uncontrolled heart rate. No recent echocardiogram on record here. Repeat echocardiogram if appropriate per Cardiology. Creatinine has climbed to 1.7 although his admission creatinine may have been falsely low given his fluid overload. Baseline creatinine is unclear since he has wide range of values over the past few years. Consider that some of the chest x-ray findings may be related to pneumonia, we will start IV antibiotics. Will check sputum culture as well as urine antigens. Blood cultures have been collected. Influenza, RSV and COVID testing were negative. Add Xopenex. Consider steroids. Will continue to follow along with you. Thank you so much for allowing us to be apart of this patient's care. 08/03/22 - Patient underwent NED CV today with success. He feels better related to the diuresis and the return to sinus mechanism. He still has cough but seems to be more chronic. No fevers. WBC normal now. Eosinophilia noted. BCx NGTD. Sputum pending. BP soft so will stop his Norvasc. May need to back off Lasix as well. Cr worsening. Will check urine for eosinophils to exclude AIN. Stop diclofenac 08/04/22 - Cr up to 3.2 today felt related to over diuresis. Consider also AIN with peripheral eosinophilia and positive urine eos. Hold diuretics. Hold losartan. Renal US showing no hydronephrosis. Check urine studies. Nephrology consult. 08/05/22 - Cr better today. TCK 250. He feels well overall. BP remains stable off of Lasix, losartan, norvasc and metolazone. Nephrology consulted for opinion of possible AIN. Kenna 103 but could be related to recent Lasix use. Will repeat. No fevers here and WBC normal. Will narrow abx to Doxycycline to complete a course. Subjective Date/time seen: 08/05/22 12:06 Interval history: 76yo male with dCHF, KIRSTEN, HTN, CKD and COPD here for SOB, cough, fever and fluid overload.? No issues overnight. Cough is productive white sputum. He denies chest pain. Urine output has improved. No dysuria or hematuria. Exam Narrative: AF 102/51 62 18 96% ra Gen - NARD Chest - Bibasilar inspiratory crackles otherwise clear. Normal respiratory rate CV - RRR with distant S1-S2. Tele showing no significant dysrhythmias Abd - Soft. Nontender. Obese. Positive bowel sounds. Ext - no pedal pitting edema. Psych - normal mood and affect. Patient is pleasant and cooperative. Skin - warm and dry. Objective Data Vital Signs Vital Signs: Vital Signs - 24 hr 08/04/22 12:29 08/04/22 14:00 08/04/22 14:39 Temperature 96.3 F L Pulse Rate 68 55 L 55 L Respiratory Rate 22 H 16 Blood Pressu
[2022-08-05 15:27] LABS: Add Urine Microscopic? NO; Appearance Urine Clear (Clear); Bilirubin Urine Negative (Negative); Blood Urine Negative (Negative); Color Urine Yellow (Yellow); Glucose Urine UA Negative (Negative); Ketones Urine Negative (Negative); Leukocyte Esterase Ur Negative LEU/UL (Negative); Nitrate Urine Negative (Negative); Protein Urine Negative (Negative)
[2022-08-05 15:29] LABS: Creatinine Urine 154.9 mg/dL
[2022-08-05 15:31] LABS: Sodium Urine Random 36 meq/L
[2022-08-05 16:47] LABS: Creatinine Urine 158.3 mg/dL; Total Protein Urine Random 13 mg/dL; Ur Ttl Prot Creatinine Ratio 0.08 mg/mg (0-0.20); Urea Random Urine 666 MG/DL
--- NOTE | 2022-08-05 20:03 | PC.NURSE ---
This patient, Danial Wilson, was transferred to [[id number]] on 08/05/22 at 2002. Personal belongings sent with patient. Report given to [MARY Danielson]. Appropriate documentation sent with patient.
--- NOTE | 2022-08-05 20:37 | PC.NURSE ---
Patient arrived on 3 Med-Surg at 20:15
[2022-08-05] MEDS: traZODone HCL 50 MG TABLET 200 MG PO (22:04)
[2022-08-05] MEDS: PRAMIPEXOLE 1 MG TABLET 2 MG PO (22:04)
[2022-08-05] MEDS: clonazePAM (*CRX) 0.5 MG TABLET 2 MG PO (22:07)
[2022-08-06] VITALS (8 sets, daily range): BP systolic 103–134; BP diastolic 46–63; PULSE 53–75; RESP 16–19; TEMP 36.6–36.7; O2SAT 93–98
[2022-08-06] MEDS: DOXYCYCLINE HYCLATE 100 MG TABLET PO ×2 (05:29→16:52)
[2022-08-06 07:07] LABS: Albumin Level 3.8 g/dL (3.5-5.1); Anion Gap 6 mmol/L (8-16); Blood Urea Nitrogen 32 mg/dL (9-20); Calcium 8.8 mg/dL (8.4-10.2); Carbon Dioxide 36 mmol/L (22-30); Chloride 93 mmol/L (98-107); Estimated CRCL calculation 50 ml/min; Estimated Glomerular Filt Rate 42; Glucose 91 mg/dL (65-110); Phosphorus 3.2 mg/dL (2.5-4.5); Potassium 3.6 mmol/L (3.4-5.0); Sodium 135 mmol/L (137-145)
[2022-08-06] MEDS: APIXABAN 5 MG TABLET PO (08:02)
[2022-08-06] MEDS: ASPIRIN 81 MG CHEWABLE TABLET PO (08:02)
[2022-08-06] MEDS: MULTIVITAMINS THERAPEUTIC TAB (*BKC) 1 TABLET PO (08:02)
[2022-08-06] MEDS: ROSUVASTATIN 10 MG TABLET 20 MG PO (08:02)
[2022-08-06] MEDS: PANTOPRAZOLE 40 MG TABLET PO (08:02)
[2022-08-06] MEDS: CHOLECALCIFEROL 1,000 UNITS TABLET 5000 UNITS PO (08:03)
[2022-08-06] MEDS: guaiFENesin 12 HR 600 MG TABCR PO (08:03)
[2022-08-06] MEDS: polyethylene glycoL 3350 17 GM POWD.PACK PO (08:07)
[2022-08-06 09:07] LABS: Pneumococcal Antigen Urine Not Detected (Not Detected)
--- NOTE | 2022-08-06 09:45 | P.PNNP_ITS ---
Progress Note: A&P Assessment and Plan (1) SHUBHAM (acute kidney injury): Code(s): N17.9 - Acute kidney failure, unspecified Status: Acute Assessment and Plan: * suspect related to overdiuresis in the context of atrial flutter and possibly relative hypotension * evaluation to date noted: * renal ultrasound unremarkable * urine electrolytes prerena * urine eosinophils positive -- possible AIN (but seems a bit rapid for this) * CPK not an issue * BP medications and diuretics on hold * creatinine slowly improving * follow repeat labs and UOP (2) Stage 3a chronic kidney disease: Code(s): N18.31 - Chronic kidney disease, stage 3a Status: Acute Assessment and Plan: * baseline creatinine (at its best) runs around 1.1 - 1.4mg/dl) * he has in the past been sensitive to overdiuresis * presumably due to KIRSTEN, HTN, and vascualr disease (3) Acute on chronic diastolic CHF (congestive heart failure): Code(s): I50.33 - Acute on chronic diastolic (congestive) heart failure Status: Acute Assessment and Plan: * as noted on admission * improvement noted with diuresis * possibly exacerbated by atrial flutter(?) * Cardiology followoing (4) Essential (primary) hypertension: Code(s): I10 - Essential (primary) hypertension Status: Acute Assessment and Plan: * soft on admission * BP medications on hold * follow trend of hemodynamics (5) Fever: Code(s): R50.9 - Fever, unspecified Status: Acute Assessment and Plan: * possibly due to pneumonia? * cultures in progress * on antibiotics * viral disease (influenza, COVID, and RSV) ruled out Will continue to follow. Subjective Date/time seen: 08/06/22 09:45 Continue to make slow and steady progress; renal function has improved with relative stability in hemodynamics (BP medications remain on hold); cough seems to be doing better as well; no apparent distress voiced at the time of my visit. Exam Narrative: General: WD/WN male/female in NAD Heart: normal S1 and S2; no rub Lungs: clear anteriorly; few bibasilar crackles Abdomen: soft, nontender, nondistended, positive bowel sounds Extremities: no cyanosis or clubbing; no edema Skin: warm and dry Objective Data Vital Signs Vital Signs: Vital Signs Temp Pulse Resp BP Pulse Ox O2 Del Method 08/06/22 08:45 98 F 61 16 134/50 L 93 08/06/22 04:00 97.9 F 64 18 118/63 95 08/06/22 04:00 55 L 08/06/22 00:00 53 L 08/05/22 20:00 53 L 08/06/22 03:01 60 96 Autopap 08/06/22 00:00 98.1 F 64 19 120/58 L 93 08/05/22 20:15 97.9 F 62 20 121/58 L 94 08/05/22 21:30 BiPAP 08/05/22 22:24 62 97 Autopap 08/05/22 18:13 69 08/05/22 16:00 66 08/05/22 16:00 98.7 F 66 18 105/62 96 08/05/22 12:00 63 08/05/22 12:00 98.6 F 60 18 115/45 L 95 08/05/22 10:00 61 08/05/22 10:07 62 18 08/05/22 10:00 58 L 18 Intake/Output Intake/Output: Intake & Output 08/03/22 08/04/22 08/05/22 08/06/22 23:59 23:59 23:59 23:59 Intake Total 790 1900 1800 Output Total 900 1375 1175 525 Balance -110 525 625 -525
--- NOTE | 2022-08-06 09:45 | PM.PNNEP ---
Progress Note: A&P Assessment and Plan (1) SHUBHAM (acute kidney injury): Code(s): N17.9 - Acute kidney failure, unspecified Status: Acute Assessment and Plan: suspect related to overdiuresis in the context of atrial flutter and possibly relative hypotension evaluation to date noted: renal ultrasound unremarkable urine electrolytes prerena urine eosinophils positive -- possible AIN (but seems a bit rapid for this) CPK not an issue BP medications and diuretics on hold creatinine slowly improving follow repeat labs and UOP (2) Stage 3a chronic kidney disease: Code(s): N18.31 - Chronic kidney disease, stage 3a Status: Acute Assessment and Plan: baseline creatinine (at its best) runs around 1.1 - 1.4mg/dl) he has in the past been sensitive to overdiuresis presumably due to KIRSTEN, HTN, and vascualr disease (3) Acute on chronic diastolic CHF (congestive heart failure): Code(s): I50.33 - Acute on chronic diastolic (congestive) heart failure Status: Acute Assessment and Plan: as noted on admission improvement noted with diuresis possibly exacerbated by atrial flutter(?) Cardiology followoing (4) Essential (primary) hypertension: Code(s): I10 - Essential (primary) hypertension Status: Acute Assessment and Plan: soft on admission BP medications on hold follow trend of hemodynamics (5) Fever: Code(s): R50.9 - Fever, unspecified Status: Acute Assessment and Plan: possibly due to pneumonia? cultures in progress on antibiotics viral disease (influenza, COVID, and RSV) ruled out Will continue to follow. Subjective Date/time seen: 08/06/22 09:45 Continue to make slow and steady progress; renal function has improved with relative stability in hemodynamics (BP medications remain on hold); cough seems to be doing better as well; no apparent distress voiced at the time of my visit. Exam Narrative: General: WD/WN male/female in NAD Heart: normal S1 and S2; no rub Lungs: clear anteriorly; few bibasilar crackles Abdomen: soft, nontender, nondistended, positive bowel sounds Extremities: no cyanosis or clubbing; no edema Skin: warm and dry Objective Data Vital Signs Vital Signs: Vital Signs Temp Pulse Resp BP Pulse Ox O2 Del Method 08/06/22 08:45 98 F 61 16 134/50 L 93 08/06/22 04:00 97.9 F 64 18 118/63 95 08/06/22 04:00 55 L 08/06/22 00:00 53 L 08/05/22 20:00 53 L 08/06/22 03:01 60 96 Autopap 08/06/22 00:00 98.1 F 64 19 120/58 L 93 08/05/22 20:15 97.9 F 62 20 121/58 L 94 08/05/22 21:30 BiPAP 08/05/22 22:24 62 97 Autopap 08/05/22 18:13 69 08/05/22 16:00 66 08/05/22 16:00 98.7 F 66 18 105/62 96 08/05/22 12:00 63 08/05/22 12:00 98.6 F 60 18 115/45 L 95 08/05/22 10:00 61 08/05/22 10:07 62 18 08/05/22 10:00 58 L 18 Intake/Output Intake/Output: Intake & Output 08/03/22 08/04/22 08/05/22 08/06/22 23:59 23:59 23:59 23:59 Intake Total 790 1900 1800 Output Total 900 1375 1175 525 Balance -110 525 625 -525 Meds/Results Medications: Active Medications Generic Name Dose Route Start Last Admin Trade Name Freq PRN Reason Stop Dose Admin Acetaminophen 650 mg 08/01/22 16:33 Acetaminophen 325 Mg Tablet PO Q4H PRN Mild Pain (1-3) or Fever Albuterol 2.5 mg 08/01/22 16:36 Albuterol Sulfate Neb 2.5 Mg/3 Ml Inh INHALATION Q4-6H PRN shortness of breath or wheezing Albuterol 2 puff 08/01/22 16:36 Albuterol Sulfate (*Sp) Aerosol 1 Puff INHALATION Q4H PRN shortness of breath or wheezing Apixaban 5 mg 08/01/22 21:00 08/06/22 08:02 Apixaban 5 Mg Tablet PO 5 mg Q12HR MARTHA Administration Aspirin 81 mg 08/02/22 09:00 08/06/22 08:02 Aspirin 81 Mg Chewable Tablet PO 81 mg DAILY MARTHA Administration Clon
[2022-08-06] MEDS: FLUTICASONE/UMECLIDIN/VILANTER 100-62.5-25 MCG ELLIPTA 1 PUFF INHALATION (10:13)
--- NOTE | 2022-08-06 13:29 | PM.PNCARD ---
Progress Note: A&P Assessment and Plan (1) Acute on chronic diastolic CHF (congestive heart failure): Code(s): I50.33 - Acute on chronic diastolic (congestive) heart failure Status: Acute Assessment and Plan: Patient presents with acute on chronic CHF, due to his underlying morbidities and his a flutter RVR. status post cardioversion. Diuretics on hold due to SHUBHAM . Creatinine improving. Nephrology following. (2) Atrial flutter: Code(s): I48.92 - Unspecified atrial flutter Status: Acute Assessment and Plan: A flutter RVR, recent onset S/p NED/DCCV now in NSR . Continue metoprolol tartrate and anticoagulation with apixaban. Check 12 lead EKG in the morning. (3) Chronic kidney disease, stage 2 (mild): Code(s): N18.2 - Chronic kidney disease, stage 2 (mild) Status: Acute Assessment and Plan: Creatinine improving, nephrology following. (4) Cough: Code(s): R05.9 - Cough, unspecified Status: Acute (5) Fever: Code(s): R50.9 - Fever, unspecified Status: Acute Assessment and Plan: As above (6) COPD exacerbation: Code(s): J44.1 - Chronic obstructive pulmonary disease with (acute) exacerbation Status: Acute Subjective Date/time seen: 08/06/22 13:29 Interval history: Date of service: 08/06/2022 Interval history: Patient reports improvement in shortness of breath. No chest pain or palpitations. Exam Narrative: PHYSICAL EXAMINATION: GENERAL: Obese,Alert, oriented, no acute distress MENTAL STATUS: affect appropriate to mood EYES: Extraocular movements intact, no pallor EARS: External ears appear normal, hearing grossly normal NOSE: Normal and patent, no discharge MOUTH: Mucous membranes moist, edentulous NECK: Supple, no JVD CHEST: diminished breath sounds due to body habitus HEART: Normal rate, regular rhythm at present ABDOMEN: Soft, nontender NEUROLOGICAL: Alert, oriented, normal speech, no gross motor deficits MUSCULOSKELETAL: No major deformity, no amputation EXTREMITIES: bilateral pedal edema, no clubbing, no cyanosis SKIN: no rash on the exposed area, no cyanosis PSYCHIATRIC: Normal mood, appropriate affect Objective Data Vital Signs Vital Signs: Vital Signs - 24 hr 08/05/22 16:00 08/05/22 16:00 08/05/22 18:13 Temperature 37.1 C Pulse Rate 66 66 69 Respiratory Rate 18 Blood Pressure 105/62 Pulse Oximetry 96 Oxygen Delivery 08/05/22 22:24 08/05/22 21:30 08/05/22 20:15 Temperature 36.6 C Pulse Rate 62 62 Respiratory Rate 20 Blood Pressure 121/58 L Pulse Oximetry 97 94 Oxygen Delivery Autopap BiPAP 08/06/22 00:00 08/06/22 03:01 08/05/22 20:00 Temperature 36.7 C Pulse Rate 64 60 53 L Respiratory Rate 19 Blood Pressure 120/58 L Pulse Oximetry 93 96 Oxygen Delivery Autopap 08/06/22 00:00 08/06/22 04:00 08/06/22 04:00 Temperature 36.6 C Pulse Rate 53 L 55 L 64 Respiratory Rate 18 Blood Pressure 118/63 Pulse Oximetry 95 Oxygen Delivery 08/06/22 08:45 08/06/22 07:50 08/06/22 12:15 Temperature 36.6 C 36.6 C Pulse Rate 61 64 Respiratory Rate 16 16 Blood Pressure 134/50 L 128/51 L Pulse Oximetry 93 98 Oxygen Delivery Room Air Intake/Output Intake/Output: Intake & Output 08/03/22 08/04/22 08/05/22 08/06/22 23:59 23:59 23:59 23:59 Intake Total 790 1900 1800 400 Output Total 900 1375 1175 525 Balance -110 525 625 -125 Meds/Results Medications: Active Medications Generic Name Dose Route Start Last Admin Trade Name Freq PRN Reason Stop Dose Admin Acetaminophen 650 mg 08/01/22 16:33 Acetaminophen 325 Mg Tablet PO Q4H PRN Mild Pain (1-3) or Fever Albuterol 2.5 mg 08/01/22 16:36 Albuterol Sulfate Neb 2.5 Mg/3 Ml Inh INHALATION Q4-6H PRN shortness of breath or wheezing Albuterol 2 puff 08/01/22 16:36 Albuterol Sulfate (*Sp) Aerosol 1 Puff INHA
--- NOTE | 2022-08-06 15:58 | PM.DS ---
DS: Admitting Diagnosis Discharge Date 08/06/22 Admitting Diagnosis SOB, cough, fever and fluid overload DS: Discharge Diagnosis Discharge Diagnosis (1) Acute kidney failure: Code(s): N17.9 - Acute kidney failure, unspecified Status: Inactive (2) Acute on chronic diastolic CHF (congestive heart failure): Code(s): I50.33 - Acute on chronic diastolic (congestive) heart failure Status: Acute (3) COPD exacerbation: Code(s): J44.1 - Chronic obstructive pulmonary disease with (acute) exacerbation Status: Acute (4) Atrial flutter: Code(s): I48.92 - Unspecified atrial flutter Status: Acute (5) Fever: Code(s): R50.9 - Fever, unspecified Status: Acute (6) KIRSTEN (obstructive sleep apnea): Code(s): G47.33 - Obstructive sleep apnea (adult) (pediatric) Status: Chronic (7) CKD (chronic kidney disease): Code(s): N18.9 - Chronic kidney disease, unspecified Status: Acute (8) Essential (primary) hypertension: Code(s): I10 - Essential (primary) hypertension Status: Acute DS: Summary Hospital Course Reason for hospitalization: 76yo male with dCHF, KIRSTEN, HTN, CKD and COPD here for SOB, cough, fever and fluid overload.? Please see H&P for details. Hospital Course: Patient has known AFib/flutter. He arrived to have his NED guided cardioversion but noted to have evidence of SOB and fluid overload so the procedure was canceled and patient was admitted to the hospital for management of CHF exacerbation and for further treatment of his viral illness.? Patient was admitted to cardiology service for CHF exacerbation. Patient also with cough and fever. Hospitalists were consulted for medical management. Chest x-ray showing pulmonary edema although pneumonia cannot be excluded. Patient was having fevers at home but not documented here. Will check sputum culture as well as urine antigens. Blood cultures NGTD. Sputum negative. Influenza, RSV and COVID testing were negative. He was started on abx for possible PNA. His WBC normalized. No fevers here. He was also started on IV diuretics with good urine output noted. Most likely the CHF exacerbation is related to his uncontrolled heart rate. No recent echocardiogram on record here. His rate was controlled. His symptoms improved. Patient underwent NED CV 08/03/22 with success. Creatinine baseline was 1-1.1. His creatinine became elevated so diuretics stopped. Creatinine climbed to 3.2 before trending down to 1.6. He did have a peripheral eosinophilia noted so nephrology consulted. BP was soft so Norvasc stopped. Patient had clinical improvement. He feels well. No problems overnight. Spoke with both Cardiology and Nephrology who felt the patient can be discharged home. Plan to resume Lasix tomorrow but continue to hold the metolazone and losartan. Patient to check blood pressure at home and call [facility] aide if elevated. He overall did well and was able to be discharged home on 08/06/22 Status at Discharge Cognitive/behavioral status at discharge: Stable Time Spent with Patient Time attestation: Total time spent providing and/or coordinating discharge services: 37 minutes Time spent: Greater than 30 minutes Exam Narrative: AF 128/51 64 16 98% ra Gen - NARD Chest - Mild bibasilar inspiratory crackles otherwise clear. Normal respiratory rate CV - RRR S1-S2 Abd - Soft. Nontender. Obese. Positive bowel sounds. Ext - trace pedal pitting edema. Psych - normal mood and affect. Patient is pleasant and cooperative. Skin - warm and dry. DS: Data Data Completed and Pending Labs on day of discharge: Labs from last 24 hours 08/06/22 08/05/22 08/05/22 06:02 14:48 14:48 Sodium 135 L Potassium 3.6 Chloride 93 L Carbon Dioxide 36 H Anion Gap 6 L BUN 32 H Creatinine 1.60 H Estim Creat Clear Calc 50 Estimated GFR 42 L Glucose 91 Calcium 8.8 Phosphorus
[2022-08-06] MEDS: METOPROLOL TARTRATE 50 MG TAB PO (16:51)
--- NOTE | 2022-08-06 20:31 | PC.NURSE ---
Pt and pt's state that they gave a RN in IMU (unsure of name) a ziploc bag of home meds per request of RN. The pt was transferred to [facility] [place] 08/05/222014 and the meds were not transferred to [facility] [place] with pt. Pt and pt's requested home meds returned. This RN contacted IMU twice, and IMU stated both times they do not have his home meds. This RN contacted pharmacy, and pharmacy stated they never received the home meds for verification from IMU and have documentation in pt's chart that states that. Pt and pt's was unsure of which meds were brought in, but will go home and call back to file an incident report for missing meds.
[2022-08-10 06:46] LABS: ANA Pattern Nuclear, Speckled; Anti Nuclear Antibody Titer 1:40 (Negative)
[2022-08-10 15:38] LABS: Chloride Rand Ur 21 mmol/L (32-290); Chloride/Creatinine Rand Ur 15 (23-275); Creatinine Random Urine 144 mg/dL (20-320)
--- NOTE | 2022-08-15 06:58 | PC.NURSE ---
CONSTANZA positive. Dr. Mesa aware of findings. Faxed results to Dr. Oliveira.
== END 2022-08-06 20:20 | disposition home or self-care (01) | DRG 291 ==
LOC: ANHIMU 17:31 → ANH3MEDSUR 08-05 20:28
PROVIDERS: Admitting Provider Internal Medicine Cardiovascular Disease; PCP Family Medicine; Visit Provider Internal Medicine
PROC: B24BZZ4 Ultrasonography of Heart with Aorta, Transesophageal (ICD-10-PCS; CPT 93312; principal; 2022-08-03 13:00)
PROC: 5A2204Z Restoration of Cardiac Rhythm, Single (ICD-10-PCS; 2022-08-03 13:00)
DX: I13.0 Hypertensive heart and chronic kidney disease with heart failure and stage 1 through stage 4 chronic kidney disease, or unspecified chronic kidney disease (principal); I50.33 Acute on chronic diastolic (congestive) heart failure; J18.9 Pneumonia, unspecified organism; N17.9 Acute kidney failure, unspecified; J44.0 Chronic obstructive pulmonary disease with (acute) lower respiratory infection; J44.1 Chronic obstructive pulmonary disease with (acute) exacerbation; I48.92 Unspecified atrial flutter; Z68.42 Body mass index [BMI] 45.0-49.9, adult; N18.31 Chronic kidney disease, stage 3a; I48.91 Unspecified atrial fibrillation; G47.33 Obstructive sleep apnea (adult) (pediatric); Z20.822 Contact with and (suspected) exposure to COVID-19; E66.01 Morbid (severe) obesity due to excess calories; G25.81 Restless legs syndrome; E78.5 Hyperlipidemia, unspecified; E87.6 Hypokalemia; F41.9 Anxiety disorder, unspecified; N40.0 Benign prostatic hyperplasia without lower urinary tract symptoms; K21.9 Gastro-esophageal reflux disease without esophagitis; N32.81 Overactive bladder; G47.61 Periodic limb movement disorder; Z86.711 Personal history of pulmonary embolism; Z98.42 Cataract extraction status, left eye; Z98.41 Cataract extraction status, right eye; Z79.82 Long term (current) use of aspirin
CPT/HCPCS: 36415; 71045; 76775; 80048; 80053; 80069; 81003; 82436; 82550; 82570; 83735; 83880; 84100; 84156; 84300; 84540; 85025; 85027; 85999; 86038; 86039; 86140; 86160; 87040; 87070; 87205; 87449; 87637; 87899; 92960; 93312; 93320; 93325; 94640; A9270; J0696; J1940; J2704; J7030; J7040

== ENCOUNTER → 2022-09-08 12:57 | Outpatient (CLI) | payer MEDICARE, SELFPAY ==
--- NOTE | ~2022-09-08 | XR_ITS ---
EXAMINATION: XR hip RT min 2V DATE: 09/08/2022 13:52 INDICATION: Right hip pain TECHNIQUE: Two views of right hip were obtained. COMPARISON: None. FINDINGS: Bone alignment is normal. There is no fracture. There is mild osteoarthritis of the hip. Ph leboliths are noted in the pelvis. IMPRESSION: 1. No acute osseous abnormality. 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 EY METHODOLOGIST
== END ==
PROVIDERS: PCP Family Medicine; Visit Provider Nurse Practitioner Family
DX: M25.551 Pain in right hip (principal)
CPT/HCPCS: 73502

== ENCOUNTER → 2022-09-11 13:04 | Outpatient (CLI) | payer MEDICARE, SELFPAY ==
--- NOTE | ~2022-09-11 | XR_ITS ---
EXAMINATION: XR femur RT min 2V INDICATION: Right leg pain TECHNIQUE: Two views of the right femur are obtained on five radiographs. COMPARISON: None FINDINGS: Bone alignment is normal. There is no fracture. There is mild osteoarthritis of the hip. Th e soft tissues are unremarkable. IMPRESSION: 1. No acute osseous abnormality. 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 NEERING AID
--- NOTE | ~2022-09-11 | XR_ITS ---
Lumbosacral Spine: AP and lateral views Clinical History: Pain COMPARISON: 09/28/2020 Findings: The normal lordotic curve is maintained. Stable moderate compression fracture of T12. No fr acture or subluxation of lumbar spine seen. There are facet joint degenerative changes from L3 throug h S1. The sacroiliac joints are normally outlined. Impression: Stable moderate compression fracture of T12. Degenerative changes, as above. Reviewed, dictated and finalized at location M. PLUGGER Impression: Stable moderate compression fracture of T12. Degenerative changes, as above.
== END ==
PROVIDERS: PCP Family Medicine; Visit Provider Physician Assistant Medical
DX: M48.54XA Collapsed vertebra, not elsewhere classified, thoracic region, initial encounter for fracture (principal); M79.604 Pain in right leg; W19.XXXA Unspecified fall, initial encounter
CPT/HCPCS: 72100; 73552

== ENCOUNTER → 2022-10-10 13:18 | Outpatient (CLI) | payer MEDICARE, SELFPAY ==
--- NOTE | ~2022-10-10 | XR_ITS ---
EXAMINATION: XR lumbar spine 6V w bending DATE: 10/10/2022 13:58 INDICATION: Low back pain, unspecified. TECHNIQUE: 7 views of lumbar spine including flexion and extension views were obtained. COMPARISON: Lumbar spine radiographs 09/11/22, CT abdomen and pelvis 06/13/2021 FINDINGS: Bone alignment is normal. The spine is hypomobile with flexion and extension. There is a ch ronic compression fracture of T12. There is mildly decreased disc height at L2-L3 and L3-L4. There ar e endplate osteophytes at all levels. There is multilevel facet joint osteoarthritis, severe bilatera lly from L3-L4 through L5-S1. IMPRESSION: 1. Mild lumbar spondylosis. Reviewed, dictated and finalized at location A. IMPRESSION: 1. Mild lumbar spondylosis.
--- NOTE | ~2022-10-10 | XR_ITS ---
EXAMINATION: XR abdomen/kub 1V DATE: 10/10/2022 13:58 INDICATION: Low back pain, unspecified. TECHNIQUE: A supine view of the abdomen on 3 radiographs was obtained. COMPARISON: CT abdomen and pelvis 06/13/2021 FINDINGS: There is distention of the transverse colon. The small bowel is normal in caliber. IMPRESSION: 1. Distention of the transverse colon, which may be adynamic ileus or bowel obstruction. Reviewed, dictated and finalized at location A. IMPRESSION: 1. Distention of the transverse colon, which may be adynamic ileus or bowel obs truction.
== END ==
PROVIDERS: PCP Family Medicine; Visit Provider Family Medicine
DX: M47.896 Other spondylosis, lumbar region (principal); K63.89 Other specified diseases of intestine
CPT/HCPCS: 72114; 74018

== ENCOUNTER 2022-12-12 13:12 | Outpatient (CLI) | payer MEDICARE, SELFPAY ==
[2022-12-12 13:31] LABS: Basophils Absolute Auto 0.1 K/mm3 (0.0-0.1); Eosinophils Absolute Auto 0.3 K/mm3 (0-0.3); Eosinophils Percent Auto 3.6 % (0-4.4); Hematocrit 42.3 % (42.0-52.0); Hemoglobin 13.9 g/dL (14.0-18.0); Immature Granulocyte Absolute 0.02 K/mm3 (0.00-0.031); Immature Granulocyte Percent A 0.2 % (0-0.5); Lymphocytes Absolute Auto 2.09 K/mm3 (0.9-3.2); Lymphocytes Percent Auto 24.3 % (18.3-44.2); Mean Corpuscular HGB Conc 32.9 g/dl (32-36); Mean Corpuscular Hemoglobin 31.4 pg (26-34); Mean Corpuscular Volume 95.7 fl (80-100); Monocytes Absolute Auto 0.6 K/mm3 (0.1-0.6); Monocytes Percent Auto 6.4 % (2.6-8.5); Neutrophils Absolute Auto 5.5 K/mm3 (1.3-6.7); Neutrophils Percent Auto 64.5 % (45.5-73.1); Platelet Count Result 290 k/mm3 (150-375); Red Blood Count 4.42 M/mm3 (4.6-6.20); Red Cell Distribution Width 14.1 % (11.5-14.5); White Blood Count 8.6 K/mm3 (4.5-10.0)
[2022-12-12 13:40] LABS: Blood Urea Nitrogen 12 mg/dL (8-26); Carbon Dioxide 29 mmol/L (22-30); Chloride 102 mmol/L (98-109); Estimated Glomerular Filt Rate > 60; Glucose 101 mg/dL (70-105); Ionized Calcium (POC) 1.18 mmol/L (1.11-1.31); Potassium 4.5 mmol/L (3.5-4.9); Sodium 138 mmol/L (138-146)
[2022-12-12 16:25] LABS: Alanine Aminotransferase 21 U/L (6-50); Alkaline Phosphatase 128 U/L (38-126); Anion Gap 4 mmol/L (8-16); Aspartate Amino Transferase 82 U/L (17-59); Bilirubin,Total 0.5 mg/dL (0.2-1.3); Blood Urea Nitrogen 13 mg/dL (9-20); Calcium 9.3 mg/dL (8.4-10.2); Carbon Dioxide 32 mmol/L (22-30); Chloride 102 mmol/L (98-107); Estimated Glomerular Filt Rate > 60; Glucose 99 mg/dL (65-110); Potassium 4.4 mmol/L (3.4-5.0); Sodium 138 mmol/L (137-145)
== END 2022-12-12 13:13 | disposition home or self-care (01) ==
LOC: ANHLAB 13:14
PROVIDERS: PCP Family Medicine; Visit Provider Internal Medicine Hematology & Oncology
DX: D64.9 Anemia, unspecified (principal)
CPT/HCPCS: 36415; 80047; 80053; 85025

== ENCOUNTER 2022-12-20 13:12 | Outpatient (RCR) | payer MEDICARE, SELFPAY ==
--- NOTE | 2022-12-21 09:26 | PTOPEVAL1 ---
Assessment and note entered by Will Payne, PT Evaluation Information Assessment Status Evaluation Diagnosis low back pain, and pain in R leg Subjective Information Patient reports he is coming here because his doctor told him to come in. He has a history of falls, but reports he does not have a falling problem. Using a cane and wanting to get a 4 wheeled walker, was given exercises by his doctor, but reports he cannot understand how to do the exercises based on the papers. is with them and all they really want to talk about is a walker that will work on [place] where they have a vacation planned. Reported Pain Level Pain Score 5: Self Report Additional Pain Score Comments Reports the pain is just there Assessment PT Clinical Summary Lisandro is a 76 year old male coming into the clinic secondary to a diagnosis of low back pain and R hip pain. The patient has slight weakness CARMELINA LE not just on the right side, tenderness over the R Greater Trochanter. Balance scores 14 secs for 5 sit to stands indicative of decreased chance of falls. 24/28 Tinetti score indicative of chance of falls. Patient does not appear motivated for therapy or HEP as he was with his doctor's HEP either, but if using walking instead of cane should have less stress on hip which will help with pain. Also recommended physical therapy for assistive device training if he gets a 4 wheeled walker either outpatient or home health. Gave new exercises which he reports he understands. Plan of Care PT Services Indicated No Treatment Frequency and Discharged from skilled physical therapy Duration These treatments will address the objective and functional deficits as defined above. The patient will be advanced safely and appropriately in order for the patient to progress towards his/her prior level of function. Additional exercises will be introduced and as well as a comprehensive home exercise program upon discharge, if needed, ?to ensure carryover of functional gains achieved in the clinic. This treatment plan has been reviewed and agreement upon by the patient.
== END 2022-12-22 09:01 | disposition home or self-care (01) ==
LOC: ANHPT 13:12
PROVIDERS: PCP Family Medicine; Visit Provider Physician Assistant Medical
DX: M54.50 Low back pain, unspecified (principal); M79.604 Pain in right leg
CPT/HCPCS: 97110; 97161

== ENCOUNTER 2023-01-09 03:42 | Emergency (ER) | payer MEDICARE, SELFPAY ==
[2023-01-09] VITALS (12 sets, daily range): BP systolic 129–162; BP diastolic 51–83; PULSE 59–74; RESP 12–20; TEMP 36.6–36.8; O2SAT 92–99
--- NOTE | ~2023-01-09 | XR_ITS ---
EXAMINATION: XR chest 1V portable INDICATION: Shortness of breath TECHNIQUE: Portable AP chest at 0504 hours COMPARISON: 08/03/2022 FINDINGS: There are minimal airspace opacities of the lung bases. No pleural effusion or pneumothorax . The cardiomediastinal silhouette is stable. There is chronic elevation of the right hemidiaphragm. IMPRESSION: 1. Minimal bibasilar airspace opacities, consistent with atelectasis versus pneumonia. Reviewed, dictated and finalized at location A. IMPRESSION: 1. Minimal bibasilar airspace opacities, consistent with atelectasis versus pne umonia.
--- NOTE | 2023-01-09 03:44 | ECG_ITS ---
Measurements Intervals [place] Rate: 69 P: -60 AK: 148 QRS: -52 QRSD: 154 T: 9 QT: 428 QTc: 460 Interpretive Statements SINUS RHYTHM RIGHT BUNDLE BRANCH BLOCK [120+ ms QRS DURATION, UPRIGHT V1, 40+ ms S IN I/aVL/V4/V5/V6] LEFT ANTERIOR FASCICULAR BLOCK [QRS AXIS <= -45, QR IN I, RS IN II] VOLTAGE CRITERIA FOR LVH [MEETS CRITERIA IN ONE OF: R(aVL), S(V1), R(V5), R(V5/V6)+S(V1)] COMPARED TO ECG 08/03/2022 12:07:52 NO SIGNIFICANT CHANGES Electronically Signed On 01-09-2023 14:52:59 CDT by Alexis Zendejas M.D.
[2023-01-09] MEDS: LORazepam INJ (*CRX) 2 MG/ML VIAL 1 MG IV PUSH ×2 (05:13→07:25)
[2023-01-09 05:20] LABS: Basophils Absolute Auto 0.1 K/mm3 (0.0-0.1); Basophils Percent Auto 1.3 % (0.2-1.2); Eosinophils Absolute Auto 0.2 K/mm3 (0-0.3); Eosinophils Percent Auto 2.1 % (0-4.4); Hematocrit 42.9 % (42.0-52.0); Hemoglobin 13.9 g/dL (14.0-18.0); Immature Granulocyte Absolute 0.06 K/mm3 (0.00-0.031); Immature Granulocyte Percent A 0.6 % (0-0.5); Lymphocytes Percent Auto 20.5 % (18.3-44.2); Mean Corpuscular HGB Conc 32.4 g/dl (32-36); Mean Corpuscular Volume 95.5 fl (80-100); Mean Platelet Volume 9.8 fl (7.4-10.4); Monocytes Absolute Auto 0.6 K/mm3 (0.1-0.6); Monocytes Percent Auto 6.6 % (2.6-8.5); Neutrophils Absolute Auto 6.7 K/mm3 (1.3-6.7); Neutrophils Percent Auto 68.9 % (45.5-73.1); Platelet Count Result 342 k/mm3 (150-375); Red Blood Count 4.49 M/mm3 (4.6-6.20); Red Cell Distribution Width 14.4 % (11.5-14.5); White Blood Count 9.8 K/mm3 (4.5-10.0)
--- NOTE | 2023-01-09 05:26 | ED.GENADULT ---
HPI - General Adult General Chief complaint: Anxiety <Logan Allen MD - Last Filed: 01/09/23 08:03> Stated complaint: Multiple complaints <Logan Allen MD - Last Filed: 01/09/23 08:03> Time Seen by Provider: 01/09/23 04:41 <Logan Allen MD - Last Filed: 01/09/23 08:03> History of Present Illness HPI narrative: Patient 77-year-old gentleman who presents the emergency department with chief complaint of anxiety. The patient reports that he has a long running history of anxiety and has been on clonazepam the patient reports that he has a primary doctor decided to stop him from taking clonazepam and reports that he abruptly stopped taking it several days ago the patient states that he feels extremely anxious feels short of breath and reports the symptoms or not improved by anything. The patient reports no vomiting no diarrhea no chest pain <Logan Allen MD - Last Filed: 01/09/23 08:03> Related Data Home medications: Home Medications Medication Instructions Recorded Confirmed lysine HCl 1,000 mg tablet 1,000 mg PO DAILY 05/30/19 01/02/23 multivitamin (Multiple Vitamins 1 tablet PO DAILY 05/30/19 01/02/23 tablet) cholecalciferol (vitamin D3) 100 5,000 unit PO DAILY 04/18/21 01/02/23 mcg (4,000 unit) capsule (Vitamin D3) aspirin 81 mg tablet 81 mg PO DAILY 06/11/21 01/02/23 vibegron 75 mg tablet (Gemtesa) 75 mg PO DAILY 07/19/21 01/02/23 apixaban 5 mg tablet (Eliquis) 5 mg PO BID 07/28/22 01/02/23 sacubitril 49 mg-valsartan 51 mg 1 tablet PO BID 09/28/22 01/02/23 tablet (Entresto) metoprolol succinate 25 mg 25 mg PO BID 01/02/23 01/02/23 tablet,extended release 24 hr tamsulosin 0.4 mg capsule 0.4 mg PO DAILY 01/02/23 01/02/23 <Logan Allen MD - Last Filed: 01/09/23 08:03> Allergies/adverse reactions: Allergies Allergy/AdvReac Type Severity Reaction Status Date / Time codeine AdvReac Mild CONSTIPATIO Verified 01/09/23 03:44 N methylprednisolone AdvReac Mild Vomiting Verified 01/09/23 03:44 prednisone AdvReac Unknown Vomiting Verified 01/09/23 03:44 <Logan Allen MD - Last Filed: 01/09/23 08:03> Review of Systems Review of Systems: A 10 system review of systems was completed on the patient and is negative except for what is stated in the HPI. Nursing and ancillary documentation was reviewed. <Logan Allen MD - Last Filed: 01/09/23 08:03> [facility] Past Medical History Medical History: Medical History Anxiety Atrial fibrillation Diagnosed 01/2022 Atrial flutter Diagnosis 06/2022. Benign prostatic hyperplasia BMI greater than 40 Chronic anemia Chronic obstructive pulmonary disease Compression fx, thoracic spine Diastolic heart failure Gastroesophageal reflux disease History of cardioversion History of esophageal dilatation Hyperlipidemia Hypertension Low serum vitamin D Lumbar spondylosis Obstructive sleep apnea treated with BiPAP Overactive bladder Persistent disorder of initiating or maintaining sleep PLMD (periodic limb movement disorder) Pulmonary embolism (08/2018) Secondary erythrocytosis Related to COPD and obstructive sleep apnea. Previously received therapeutic phlebotomy. Sore in nose Tachycardia Tubulovillous adenoma of colon Ulcerative colitis <Logan Allen MD - Last Filed: 01/09/23 08:03> Surgical History Surgical History: Surgical History History of bilateral cataract extraction History of cardiac catheterization History of colonoscopy with polypectomy History of cystoscopy History of decompression of ulnar nerve Left elbow. History of dental surgery History of extraction of renal calculus History of right hemicolectomy (06/10/19) Benign tubulovillous adenoma. Hx of transurethral resection of prostate
[2023-01-09 05:30] LABS: Alanine Aminotransferase 24 U/L (6-50); Albumin Level 4.1 g/dL (3.5-5.1); Alkaline Phosphatase 122 U/L (38-126); Anion Gap 6 mmol/L (8-16); Aspartate Amino Transferase 34 U/L (17-59); Bilirubin,Total 0.5 mg/dL (0.2-1.3); Blood Urea Nitrogen 15 mg/dL (9-20); Calcium 9.3 mg/dL (8.4-10.2); Carbon Dioxide 29 mmol/L (22-30); Chloride 104 mmol/L (98-107); Estimated CRCL calculation 72 ml/min; Estimated Glomerular Filt Rate > 60; Glucose 118 mg/dL (65-110); Magnesium 2.3 mg/dL (1.6-2.3); Potassium 4.2 mmol/L (3.4-5.0); Sodium 139 mmol/L (137-145)
[2023-01-09 05:44] LABS: NT Pro B Type Natriuretic Pept 356 pg/mL (19.9-100); Troponin I 0.014 ng/mL (0.000-0.034)
[2023-01-09 07:19] LABS: Add Urine Microscopic? YES; Appearance Urine Clear (Clear); Bacteria Urine None Seen /hpf; Bilirubin Urine Negative (Negative); Blood Urine Negative (Negative); Color Urine Yellow (Yellow); Glucose Urine UA Negative (Negative); Ketones Urine Negative (Negative); Leukocyte Esterase Ur Negative LEU/UL (Negative); Need Manual Microscopic Reviewed; Nitrate Urine Negative (Negative); Non Pathogenic Casts 0-2; Protein Urine Trace mg/dL (Negative); RBC Urine 0-2 /hpf (0-2); Specific Grav Ur 1.022 (1.001-1.035); Squamous Epithelial Cell Urine None seen /hpf (Few); WBC Urine 0-5 /hpf; pH Urine 5.5 (5.0-9.0)
[2023-01-09 08:31] LABS: Troponin I 0.014 ng/mL (0.000-0.034)
== END 2023-01-09 09:43 | disposition home or self-care (01) ==
PROVIDERS: Emergency Provider Emergency Medicine; PCP Family Medicine
DX: F41.9 Anxiety disorder, unspecified (principal); I48.91 Unspecified atrial fibrillation; I48.92 Unspecified atrial flutter; J44.9 Chronic obstructive pulmonary disease, unspecified; I50.30 Unspecified diastolic (congestive) heart failure; I11.0 Hypertensive heart disease with heart failure; E78.5 Hyperlipidemia, unspecified; D64.9 Anemia, unspecified; G47.61 Periodic limb movement disorder; G47.33 Obstructive sleep apnea (adult) (pediatric); N40.0 Benign prostatic hyperplasia without lower urinary tract symptoms; N32.81 Overactive bladder; D75.1 Secondary polycythemia; K21.9 Gastro-esophageal reflux disease without esophagitis; Z86.711 Personal history of pulmonary embolism; Z87.442 Personal history of urinary calculi; Z98.42 Cataract extraction status, left eye; Z98.41 Cataract extraction status, right eye; Z90.49 Acquired absence of other specified parts of digestive tract; Z90.79 Acquired absence of other genital organ(s); Z77.22 Contact with and (suspected) exposure to environmental tobacco smoke (acute) (chronic); Z79.01 Long term (current) use of anticoagulants; I45.2 Bifascicular block; R91.8 Other nonspecific abnormal finding of lung field
CPT/HCPCS: 36415; 71045; 80053; 81001; 83735; 83880; 84484; 85025; 93005; 96374; 96376; 99284; J2060

== ENCOUNTER 2023-03-08 09:07 | Outpatient (NON) | payer MEDICARE, SELFPAY | END 2023-03-08 09:08 | disposition home or self-care (01) | PROVIDERS: PCP Family Medicine; Visit Provider Internal Medicine Gastroenterology | DX: R19.7 Diarrhea, unspecified (principal) | CPT/HCPCS: 87045; 87427; 87449 ==

== ENCOUNTER 2023-04-18 10:15 | Emergency (ER) | payer MEDICARE, SELFPAY ==
--- NOTE | ~2023-04-18 | XR_ITS ---
Clinical Indication: Left extremity swelling PA and lateral views of the chest: Comparison: 01/09/2023 Findings: There is central congestive change and probable minimal pulmonary edema. Cardiomediastinal silhouette is within normal limits. Mild compression fracture of what is probably T12 present.. Impression: Central congestive change and probable minimal pulmonary edema. Mild compression fracture of probably T12. Reviewed, dictated and finalized at [facility]. Impression: Central congestive change and probable minimal pulmonary edema. Mild compression fracture of probably T12.
--- NOTE | 2023-04-18 10:32 | ECG_ITS ---
Measurements Intervals [place] Rate: 72 P: 28 ID: 175 QRS: -55 QRSD: 149 T: 28 QT: 416 QTc: 456 Interpretive Statements SINUS RHYTHM RIGHT BUNDLE BRANCH BLOCK LEFT ANTERIOR FASCICULAR BLOCK VOLTAGE CRITERIA FOR LVH BASELINE ARTIFACT- I, II, III, AVR, AVL, AVF ABNORMAL ECG COMPARED TO ECG 01/09/2023 03:56:01 NO SIGNIFICANT CHANGES Electronically Signed On 04-18-2023 10:53:01 CDT by Stoney Dodd D.O.
[2023-04-18 10:34] VITALS: BP 143/67; PULSE 74; RESP 20; TEMP 37.3; O2SAT 96
--- NOTE | 2023-04-18 10:46 | ED.WEAKNESS ---
HPI - Weakness General Chief complaint: Weakness Stated complaint: Legs/Feet Swollen/Bodyaches/Weakness Time Seen by Provider: 04/18/23 10:48 Source: patient Mode of arrival: ambulatory Limitations: no limitations History of Present Illness HPI Narrative: 77-year-old male with a history of atrial fibrillation, CHF, COPD, CKD, KIRSTEN presented for complaint of increased leg swelling, SOB with exertion, and legs hurt with standing feeling like they will give out. Symptoms worsening over the past few months. States he feels sob when walking just from living room to bathroom at home. Endorses cough and frequent urination. Reports taking medications as directed. Denies orthopnea, chest pain, heart racing, wheezing, n/v/d/f/c, or lethargy. Denies adding salt to foods. Reports Atrial flutter, with ablation 07/2022. Scheduled with pcp next month. Follows with cardiology Dr Mena, and nephrology Dr Traore. Related Data Home Medications Medication Instructions Recorded Confirmed lysine HCl 1,000 mg tablet 1,000 mg PO DAILY 05/30/19 02/07/23 multivitamin (Multiple Vitamins 1 tablet PO DAILY 05/30/19 02/07/23 tablet) cholecalciferol (vitamin D3) 100 5,000 unit PO DAILY 04/18/21 02/07/23 mcg (4,000 unit) capsule (Vitamin D3) aspirin 81 mg tablet 81 mg PO DAILY 06/11/21 02/07/23 apixaban 5 mg tablet (Eliquis) 5 mg PO BID 07/28/22 02/07/23 sacubitril 49 mg-valsartan 51 mg 1 tablet PO BID 09/28/22 02/07/23 tablet (Entresto) metoprolol succinate 25 mg 25 mg PO BID 01/02/23 02/07/23 tablet,extended release 24 hr fluticasone fur. 100 mcg-umeclid 1 inh inhalation DAILY 04/18/23 04/18/23 62.5 mcg-vilant 25 mcg inhalat.powder (Trelegy Ellipta) Allergies Allergy/AdvReac Type Severity Reaction Status Date / Time codeine AdvReac Mild CONSTIPATIO Verified 04/18/23 11:00 N methylprednisolone AdvReac Mild Vomiting Verified 04/18/23 11:00 prednisone AdvReac Unknown Vomiting Verified 04/18/23 11:00 Review of Systems Review of Systems: CONSTITUTIONAL: Denies body aches, fever, chills, or sweats. EYES: Denies visual changes, redness, or discharge. ENT: Denies rhinorrhea, congestion, sore throat, or otalgia. CARDIOVASCULAR: Denies chest pain, palpitations, Reports edema. RESPIRATORY: Reports cough, dyspnea with exertion GASTROINTESTINAL: Denies abdominal pain, nausea, vomiting, or diarrhea. GENITOURINARY: Reports frequency Denies dysuria or hematuria. SKIN: Denies rash, itching, or wounds. MUSCULOSKELETAL: Denies back pain, joint pain, or myalgia. NEUROLOGIC: Denies headache, numbness, tingling, or weakness. All systems reviewed & are unremarkable except as noted in HPI and below PMFSH Past Medical History Medical History Anxiety Ataxia Atrial fibrillation Diagnosed 01/2022 Atrial flutter Diagnosis 06/2022. Benign prostatic hyperplasia BMI greater than 40 Chronic anemia Chronic obstructive pulmonary disease Compression fx, thoracic spine Diastolic heart failure Gastroesophageal reflux disease History of cardioversion History of esophageal dilatation Hyperlipidemia Hypertension Low serum vitamin D Lumbar spondylosis Obstructive sleep apnea treated with BiPAP Overactive bladder Persistent disorder of initiating or maintaining sleep PLMD (periodic limb movement disorder) Pulmonary embolism (08/2018) Secondary erythrocytosis Related to COPD and obstructive sleep apnea. Previously received therapeutic phlebotomy. Sore in nose Tachycardia Tubulovillous adenoma of colon Ulcerative colitis Surgical History Surgical History History of bilateral cataract extraction History of cardiac catheterization History of colonoscopy with polypectomy History of cystoscopy History of decompression of ulnar nerve Left elbow. History of dental surgery History of extraction of renal calculus History of right hemic
== END 2023-04-18 11:34 | disposition short-term general hospital (02) ==
PROVIDERS: Emergency Provider Nurse Practitioner Family; PCP Family Medicine
DX: R60.0 Localized edema (principal); I44.4 Left anterior fascicular block; I45.10 Unspecified right bundle-branch block; I13.0 Hypertensive heart and chronic kidney disease with heart failure and stage 1 through stage 4 chronic kidney disease, or unspecified chronic kidney disease; N18.9 Chronic kidney disease, unspecified; I48.91 Unspecified atrial fibrillation; N40.0 Benign prostatic hyperplasia without lower urinary tract symptoms; J44.9 Chronic obstructive pulmonary disease, unspecified; I50.30 Unspecified diastolic (congestive) heart failure; K21.9 Gastro-esophageal reflux disease without esophagitis; E78.5 Hyperlipidemia, unspecified; M47.816 Spondylosis without myelopathy or radiculopathy, lumbar region; Z86.711 Personal history of pulmonary embolism; D75.1 Secondary polycythemia; Z98.42 Cataract extraction status, left eye; Z98.41 Cataract extraction status, right eye; G47.33 Obstructive sleep apnea (adult) (pediatric)
CPT/HCPCS: 71046; 93005; 99213; G0463

== ENCOUNTER 2023-04-18 11:56 | Observation (INO) | payer MEDICARE, SELFPAY ==
[2023-04-18] VITALS (31 sets, daily range): BP systolic 110–174; BP diastolic 54–121; PULSE 60–93; RESP 15–31; TEMP 36.6–36.8; O2SAT 93–100; BMI 44.0
--- NOTE | ~2023-04-18 | US_ITS ---
EXAMINATION: US venous doppler [facility] DATE: 04/18/2023 14:37 INDICATION: Lower limb pain and swelling TECHNIQUE: Grayscale ultrasound images without and with compression and Doppler ultrasound images of the bilateral lower extremity veins were obtained. COMPARISON: None. FINDINGS: The visualized portions of right common femoral vein, profunda (deep) femoral vein, femoral vein, pop liteal vein, posterior tibial veins, peroneal veins, gastrocnemius vein and greater saphenous vein ou tflow are patent. The visualized portions of left common femoral vein, profunda femoral vein, femoral vein, popliteal v ein, posterior tibial veins, peroneal veins, gastrocnemius vein and greater saphenous vein outflow ar e patent. IMPRESSION: 1. No deep venous thrombosis in either lower limb. Reviewed, dictated and finalized at location A.
--- NOTE | 2023-04-18 11:57 | ECG_ITS ---
Measurements Intervals [place] Rate: 72 P: -20 ME: 100 QRS: -59 QRSD: 148 T: 40 QT: 422 QTc: 464 Interpretive Statements SINUS RHYTHM RIGHT BUNDLE BRANCH BLOCK LEFT ANTERIOR FASCICULAR BLOCK VOLTAGE CRITERIA FOR LVH BASELINE ARTIFACT- I, II, III, AVR, AVL, AVF ABNORMAL ECG COMPARED TO ECG 04/18/2023 10:42:50 NO SIGNIFICANT CHANGES Electronically Signed On 04-18-2023 12:46:31 CDT by Stoney Dodd D.O.
[2023-04-18 12:32] LABS: Basophils Absolute Auto 0.1 K/mm3 (0.0-0.1); Eosinophils Absolute Auto 0.2 K/mm3 (0-0.3); Eosinophils Percent Auto 2.5 % (0-4.4); Hematocrit 42.3 % (42.0-52.0); Hemoglobin 13.7 g/dL (14.0-18.0); Immature Granulocyte Absolute 0.02 K/mm3 (0.00-0.031); Immature Granulocyte Percent A 0.2 % (0-0.5); Lymphocytes Percent Auto 24.4 % (18.3-44.2); Mean Corpuscular HGB Conc 32.4 g/dl (32-36); Mean Corpuscular Hemoglobin 31.7 pg (26-34); Mean Corpuscular Volume 97.9 fl (80-100); Mean Platelet Volume 9.9 fl (7.4-10.4); Monocytes Absolute Auto 0.7 K/mm3 (0.1-0.6); Monocytes Percent Auto 6.9 % (2.6-8.5); Neutrophils Absolute Auto 6.1 K/mm3 (1.3-6.7); Platelet Count Result 239 k/mm3 (150-375); Red Blood Count 4.32 M/mm3 (4.6-6.20); Red Cell Distribution Width 13.8 % (11.5-14.5); White Blood Count 9.4 K/mm3 (4.5-10.0)
--- NOTE | 2023-04-18 12:40 | ED.SOB ---
HPI - SOB/Dyspnea General Chief Complaint: Shortness of Breath/Dyspnea Stated Complaint: leg edema, SOB, cough Time Seen by Provider: 04/18/23 12:27 History of Present Illness HPI Narrative: Patient is a 77 year old male with history of COPD, Afib/flutter on eliquis, CKD here from urgent care for bilateral leg swelling and pain and shortness of breath. patient notes that he started having some lower extremity swelling and shortness of breath over the last week and a half. He just returned from vacation to [place]. Him and his note that they flew there and on arrival realized that they had forgot his medications at home. They did go to an urgent care out there and all of his home medications were prescribed. The origin care provider also noted that he appeared to have some cellulitis of his right lower extremity and started him on doxycycline. They deny any missed doses of his Lasix or Eliquis. They do note that throughout the week while he was on vacation he was taking this antibiotic and seemed to improve the redness in his right lower extremity. This seems to now be resolved. He has had continued worsening shortness of breath and lower extremity swelling however along with weight gain over the last 1 week and some abdominal distention. They do note that they ate out most of their vacation at restaurants which is different from what they were normal habits are at home. He was not watching his sodium intake. He typically takes 40 mg of Lasix, denies missing any doses. He denies any associated chest pain. He has had a cough which is intermittently productive of thick sputum. No fever or chills, no sick contacts. Related Data Home Medications Medication Instructions Recorded Confirmed lysine HCl 1,000 mg tablet 1,000 mg PO DAILY 05/30/19 02/07/23 multivitamin (Multiple Vitamins 1 tablet PO DAILY 05/30/19 02/07/23 tablet) cholecalciferol (vitamin D3) 100 5,000 unit PO DAILY 04/18/21 02/07/23 mcg (4,000 unit) capsule (Vitamin D3) aspirin 81 mg tablet 81 mg PO DAILY 06/11/21 02/07/23 apixaban 5 mg tablet (Eliquis) 5 mg PO BID 07/28/22 02/07/23 sacubitril 49 mg-valsartan 51 mg 1 tablet PO BID 09/28/22 02/07/23 tablet (Entresto) metoprolol succinate 25 mg 25 mg PO BID 01/02/23 02/07/23 tablet,extended release 24 hr fluticasone fur. 100 mcg-umeclid 1 inh inhalation DAILY 04/18/23 04/18/23 62.5 mcg-vilant 25 mcg inhalat.powder (Trelegy Ellipta) Allergies Allergy/AdvReac Type Severity Reaction Status Date / Time codeine AdvReac Mild CONSTIPATIO Verified 04/18/23 11:00 N methylprednisolone AdvReac Mild Vomiting Verified 04/18/23 11:00 prednisone AdvReac Unknown Vomiting Verified 04/18/23 11:00 Review of Systems Review of Systems: CONSTITUTIONAL: Denies fever, chills, or sweats. EYES: Denies visual changes, redness, or discharge. ENT: Denies rhinorrhea, congestion, sore throat, or otalgia. CARDIOVASCULAR: Denies chest pain or palpitations. LE edema bilaterally RESPIRATORY: cough, dyspnea. GASTROINTESTINAL: Abdominal distention. Denies abdominal pain, nausea, vomiting, or diarrhea. GENITOURINARY: Denies dysuria or hematuria. SKIN: Denies rash or itching. MUSCULOSKELETAL: Denies back pain, joint pain, or myalgia. NEUROLOGIC: Denies headache, numbness, or weakness. PSYCHIATRIC: Denies anxiety or depression. [facility] Past Medical History Medical History Anxiety Ataxia Atrial fibrillation Diagnosed 01/2022 Atrial flutter Diagnosis 06/2022. Benign prostatic hyperplasia BMI greater than 40 Chronic anemia Chronic obstructive pulmonary disease Compression fx, thoracic spine Diastolic heart failure Gastroesophageal reflux disease History of cardioversion History of esophageal dilatation Hyperlipidemia Hypertension Low serum vitamin D Lumbar spondylosis Obstructive sleep apnea treated with BiPAP Overactive bladder Persistent disorder of i
[2023-04-18 12:41] LABS: INR 1.1
[2023-04-18 12:42] LABS: Partial Thromboplastin Time 30.4 SECONDS (22.3-36.8)
[2023-04-18 12:44] LABS: Alanine Aminotransferase 19 U/L (6-50); Alkaline Phosphatase 101 U/L (38-126); Anion Gap 3 mmol/L (8-16); Aspartate Amino Transferase 28 U/L (17-59); Blood Urea Nitrogen 15 mg/dL (9-20); Calcium 9.1 mg/dL (8.4-10.2); Carbon Dioxide 31 mmol/L (22-30); Chloride 104 mmol/L (98-107); Estimated CRCL calculation 68 ml/min; Estimated Glomerular Filt Rate > 60; Glucose 91 mg/dL (65-110); Potassium 3.9 mmol/L (3.4-5.0); Sodium 138 mmol/L (137-145)
[2023-04-18 12:56] LABS: NT Pro B Type Natriuretic Pept 186 pg/mL (19.9-100); Troponin I 0.016 ng/mL (0.000-0.034)
[2023-04-18] MEDS: FUROSEMIDE INJ 40 MG/4 ML VIAL IV PUSH (13:19)
[2023-04-18 14:19] LABS: SARS-CoV-2 RNA PCR Negative (Negative)
--- NOTE | 2023-04-18 18:11 | ADMGEN ---
This patient, Danial Wilson, was admitted to Medical Room 242-. Patient/family oriented to hospital policies and general routines including ID bracelet, bed and alarms, visiting hours, pain management, procedures, bathroom and other care routines, personal items, smoking policy, room service/diet, and visiting hours. Information on how to activate the Rapid Response Team has been discussed. Patient/Family are encouraged to report perceived risks to care and to ask questions if they do not understand what they are told or what they should do.
--- NOTE | 2023-04-18 21:14 | PM.IMHP ---
H&P: HPI History of Present Illness Date/Time: 04/18/23 20:30 Chief Complaint: Shortness of breath. Narrative: This is a pleasant 77-year-old male with diastolic congestive heart failure, atrial flutter status post cardioversion, hypertension, obstructive sleep apnea, chronic kidney disease, and chronic obstructive pulmonary disease who presented to the emergency department for evaluation of shortness of breath. The patient provides the following history. He endorses increasing dyspnea on lesser and lesser exertion over the past 30 days or so. He has chronic lower extremity edema however his legs have been increasingly more swollen and he is now swollen up into the abdomen. Weight is also up. He states compliance with his home medications. He he and his family members were recently on vacation and he admits that perhaps he did not follow his diet as strictly as usual. They went to [place] and due to his edema and shortness of breath, he was not able to do much unfortunately. He denies fever, chills, sweats, cold flu symptoms, chest pain, pleuritic pain, sensations of racing heart, nausea, vomiting, and diarrhea. Venous Doppler ultrasound done in the ED was negative for DVT. ProBNP was only 186 however he looks significantly volume overloaded he is being admitted in this setting for diuresis. At the time my evaluation he feels fine and has no complaints. He reports that he has had good urine output with the Lasix received in the ER. Review of Systems Review of Systems: Twelve systems were reviewed and are negative except for as per HPI [facility] Past Medical History Medical History (Updated 04/18/23 @ 22:07 by Norma Peralta PA-C) Anxiety Ataxia Atrial fibrillation Diagnosed 01/2022 Atrial flutter Diagnosis 06/2022. Benign prostatic hyperplasia BMI greater than 40 Chronic anemia Chronic anticoagulation Chronic obstructive pulmonary disease Compression fx, thoracic spine Diastolic heart failure Gastroesophageal reflux disease Hyperlipidemia Hypertension Low serum vitamin D Lumbar spondylosis Obstructive sleep apnea treated with BiPAP Overactive bladder Pulmonary embolism (08/2018) Secondary erythrocytosis Related to COPD and obstructive sleep apnea. Previously received therapeutic phlebotomy. Tubulovillous adenoma of colon Ulcerative colitis Surgical History Surgical History (Updated 04/18/23 @ 22:07 by Norma Peralta PA-C) History of bilateral cataract extraction History of cardiac catheterization History of cardioversion History of colonoscopy with polypectomy History of cystoscopy History of decompression of ulnar nerve Left elbow. History of dental surgery History of esophageal dilatation History of extraction of renal calculus History of right hemicolectomy (06/10/19) Benign tubulovillous adenoma. Hx of transurethral resection of prostate Family History Family History Father Hypertension Malignant neoplasm of prostate Sibling Diabetes mellitus Family history of cardiovascular disease Malignant neoplasm of prostate Mother Family history of rheumatic fever Heart disease Sibling Cancer Heart transplant recipient Other Family history of coronary artery disease Family history of lung cancer Social History Social History (Updated 04/18/23 @ 22:03 by Norma Peralta PA-C) Social History: Surrogate decision maker: Akua Wilson, spouse. Code status: Full code. Smoking status: Never smoker Second hand tobacco smoke exposure: Yes ([place] [employer] [employer] exposure) Alcohol intake: never Substance use: never Substance use type: does not use Lack of Transportation: No Lack of Food: Never True Current Housing: I Have Housing Concerned About Future Housing: No Difficulty Paying Gas/Electric Bills: No Difficulty Paying for Meds: No Currently Unemployed: No Education: [employer]
[2023-04-18] MEDS: APIXABAN 5 MG TABLET PO (22:42)
[2023-04-18] MEDS: METOPROLOL TARTRATE 25 MG TABLET PO (22:42)
[2023-04-19] VITALS (14 sets, daily range): BP systolic 136–155; BP diastolic 42–62; PULSE 53–73; RESP 18–20; TEMP 36.1–36.8; O2SAT 94–99
[2023-04-19] MEDS: traMADol HCL (*CRX) 50 MG TABLET PO (00:18)
[2023-04-19] MEDS: FUROSEMIDE INJ 40 MG/4 ML VIAL IV PUSH ×3 (05:43→17:16)
[2023-04-19 06:57] LABS: Anion Gap 5 mmol/L (8-16); Blood Urea Nitrogen 16 mg/dL (9-20); Calcium 9.2 mg/dL (8.4-10.2); Carbon Dioxide 35 mmol/L (22-30); Chloride 99 mmol/L (98-107); Estimated CRCL calculation 67 ml/min; Estimated Glomerular Filt Rate > 60; Glucose 94 mg/dL (65-110); Magnesium 2.3 mg/dL (1.6-2.3); Potassium 4.1 mmol/L (3.4-5.0); Sodium 139 mmol/L (137-145)
[2023-04-19] MEDS: FLUTICASONE/UMECLIDIN/VILANTER 100-62.5-25 MCG ELLIPTA 1 PUFF INHALATION (07:50)
[2023-04-19] MEDS: FERROUS SULFATE 325 MG TABLET DR PO (09:11)
[2023-04-19] MEDS: CHOLECALCIFEROL 1,000 UNITS TABLET 1000 UNITS PO ×4 (09:11→20:35)
[2023-04-19] MEDS: ASPIRIN 81 MG CHEWABLE TABLET PO (09:11)
[2023-04-19] MEDS: SACUBITRIL/VALSARTAN 49-51 MG TABLET 1 TABLET PO ×2 (09:11→20:35)
[2023-04-19] MEDS: METOPROLOL TARTRATE 25 MG TABLET PO ×2 (09:12→20:35)
[2023-04-19] MEDS: POTASSIUM CHLORIDE 20 MEQ ER TABLET PO (09:12)
[2023-04-19] MEDS: APIXABAN 5 MG TABLET PO ×2 (09:13→17:15)
[2023-04-19] MEDS: PANTOPRAZOLE 40 MG TABLET PO (09:13)
[2023-04-19] MEDS: SPIRONOLACTONE 25 MG TABLET PO (09:18)
--- NOTE | 2023-04-19 10:00 | PM.IMPN ---
Progress Note: A&P Assessment and Plan (1) Acute on chronic diastolic congestive heart failure: Code(s): I50.33 - Acute on chronic diastolic (congestive) heart failure Status: Acute Assessment and Plan: Presented with bilateral lower extremity edema with worsening dyspnea and weight gain over the last month Acute on chronic combined systolic and diastolic heart failure in exacerbation NED (08/03/22) showed EF of 45-50% with global hypokinesis and moderate mitral and tricuspid regurgitation BNP 186 Trops negative Chest xray shows central congestive change and probably minimal pulmonary edema IV lasix 40mg IV BID increased to TID Continue home entresto, metoprolol Add aldactone 25 mg PO daily Trend urine output Daily weights Strict I & Os Convert to PO lasix when improving (2) Hypertension: Qualifiers: Hypertension type: primary hypertension Qualified Code(s): I10 - Essential (primary) hypertension Code(s): I10 - Essential (primary) hypertension Status: Inactive Assessment and Plan: Current BP 141/42 Continue Home entresto, metoprolol Trend Blood pressure Adjust therapy as indicated (3) Obstructive sleep apnea treated with BiPAP: Code(s): G47.33 - Obstructive sleep apnea (adult) (pediatric) Status: Acute Assessment and Plan: Continue PAP machine at home settings (4) Chronic anticoagulation: Code(s): 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 Patient stated that he is feeling better however he is still having some shortness of breath along with a cough. He also stated that his legs are still swollen and it really does hurt when he stands to urinate or move. He denies any current chest pain, nausea, vomiting, diarrhea constipation he denies any production with his cough. He also denies any burning or pain with urination. 04/18/23? 20:30 This is a pleasant 77-year-old male with diastolic congestive heart failure, atrial flutter status post cardioversion, hypertension, obstructive sleep apnea, chronic kidney disease, and chronic obstructive pulmonary disease who presented to the emergency department for evaluation of shortness of breath. The patient provides the following history. He endorses increasing dyspnea on lesser and lesser exertion over the past 30 days or so. He has chronic lower extremity edema however his legs have been increasingly more swollen and he is now swollen up into the abdomen. Weight is also up. He states compliance with his home medications. He he and his family members were recently on vacation and he admits that perhaps he did not follow his diet as strictly as usual. They went to [place] and due to his edema and shortness of breath, he was not able to do much unfortunately. He denies fever, chills, sweats, cold flu symptoms, chest pain, pleuritic pain, sensations of racing heart, nausea, vomiting, and diarrhea. Venous Doppler ultrasound done in the ED was negative for DVT. ProBNP was only 186 however he looks significantly volume overloaded he is being admitted in this setting for diuresis. At the time my evaluation he feels fine and has no complaints.? He reports that he has had good urine output with the Lasix received in the ER. Review of Systems Review of Systems: All systems reviewed & are unremarkable except as noted in HPI and below Exam Narrative: General: well-nourished, well-appearing 77-year-old male, sitting up in chair, comfortable, NARD Neuro: awake, alert and oriented x4, speech clear, no focal neuro deficits noted HEENMT:
--- NOTE | 2023-04-19 12:56 | PC.NURSE ---
On 04/19/23, the student, [Rio Duran], provided care and completed [facility] documentation on this patient. I have reviewed the student's documentation and agree with the findings.
[2023-04-19] MEDS: clonazePAM (*CRX) 0.5 MG TABLET 1 MG PO (20:33)
[2023-04-19] MEDS: ROSUVASTATIN 10 MG TABLET 20 MG PO (20:34)
[2023-04-19] MEDS: traZODone HCL 50 MG TABLET 100 MG BY MOUTH (20:34)
[2023-04-19] MEDS: PRAMIPEXOLE 1 MG TABLET BY MOUTH (20:34)
[2023-04-20] VITALS (10 sets, daily range): BP systolic 130–141; BP diastolic 50–67; PULSE 54–89; RESP 18–20; TEMP 36.3–36.9; O2SAT 94–98
[2023-04-20 06:04] LABS: Basophils Absolute Auto 0.1 K/mm3 (0.0-0.1); Basophils Percent Auto 1.2 % (0.2-1.2); Eosinophils Absolute Auto 0.4 K/mm3 (0-0.3); Eosinophils Percent Auto 4.8 % (0-4.4); Hematocrit 42.3 % (42.0-52.0); Hemoglobin 13.6 g/dL (14.0-18.0); Immature Granulocyte Absolute 0.03 K/mm3 (0.00-0.031); Immature Granulocyte Percent A 0.4 % (0-0.5); Lymphocytes Absolute Auto 1.87 K/mm3 (0.9-3.2); Lymphocytes Percent Auto 22.2 % (18.3-44.2); Mean Corpuscular HGB Conc 32.2 g/dl (32-36); Mean Corpuscular Hemoglobin 31.8 pg (26-34); Mean Corpuscular Volume 98.8 fl (80-100); Mean Platelet Volume 10.9 fl (7.4-10.4); Monocytes Absolute Auto 0.8 K/mm3 (0.1-0.6); Monocytes Percent Auto 9.3 % (2.6-8.5); Neutrophils Absolute Auto 5.2 K/mm3 (1.3-6.7); Neutrophils Percent Auto 62.1 % (45.5-73.1); Platelet Count Result 248 k/mm3 (150-375); Red Blood Count 4.28 M/mm3 (4.6-6.20); Red Cell Distribution Width 13.8 % (11.5-14.5); White Blood Count 8.4 K/mm3 (4.5-10.0)
[2023-04-20 06:15] LABS: Alanine Aminotransferase 19 U/L (6-50); Albumin Level 3.9 g/dL (3.5-5.1); Alkaline Phosphatase 87 U/L (38-126); Anion Gap 5 mmol/L (8-16); Aspartate Amino Transferase 32 U/L (17-59); Bilirubin,Total 1.2 mg/dL (0.2-1.3); Blood Urea Nitrogen 25 mg/dL (9-20); Calcium 9.2 mg/dL (8.4-10.2); Carbon Dioxide 34 mmol/L (22-30); Chloride 96 mmol/L (98-107); Estimated CRCL calculation 50 ml/min; Estimated Glomerular Filt Rate 45; Glucose 98 mg/dL (65-110); Magnesium 2.2 mg/dL (1.6-2.3); Potassium 3.6 mmol/L (3.4-5.0); Sodium 135 mmol/L (137-145)
--- NOTE | 2023-04-20 07:47 | P.PNIM_ITS ---
Progress Note: A&P Assessment and Plan (1) Acute on chronic diastolic congestive heart failure: Code(s): I50.33 - Acute on chronic diastolic (congestive) heart failure Status: Acute Assessment and Plan: * Presented with bilateral lower extremity edema with worsening dyspnea and weight gain over the last month * Acute on chronic combined systolic and diastolic heart failure in exacerbation * NED (08/03/22) showed EF of 45-50% with global hypokinesis and moderate mitral and tricuspid regurgitation * BNP 186 * Trops negative * Chest xray shows central congestive change and probably minimal pulmonary edema * IV lasix 40mg IV BID increased to TID * Continue home entresto, metoprolol * Add aldactone 25 mg PO daily * Trend urine output * Down 1L * Daily weights * Strict I & Os * Convert to PO lasix when improving (2) Hypertension: Qualifiers: Hypertension type: primary hypertension Qualified Code(s): I10 - Essential (primary) hypertension Code(s): I10 - Essential (primary) hypertension Status: Inactive Assessment and Plan: * Current BP 134/50 * Continue Home entresto, metoprolol * Trend Blood pressure * Adjust therapy as indicated (3) Obstructive sleep apnea treated with BiPAP: Code(s): G47.33 - Obstructive sleep apnea (adult) (pediatric) Status: Acute Assessment and Plan: * Continue PAP machine at home settings (4) Chronic anticoagulation: Code(s): Z79.01 - snf (current) use of anticoagulants Status: Acute Assessment and Plan: * History of Afib * Continue eliquis * bleeding precautions (5) SHUBHAM (acute kidney injury): Code(s): N17.9 - Acute kidney failure, unspecified Status: Acute Assessment and Plan: * BUN/Cr elevated today at 25/1.50 * Most likely from over diuresis * Baseline creatinine 1.10 * trend urine output * trend labs * decrease lasix to 40mg PO daily * renal dose medications * Avoid nephro toxic medications Time Spent With Patient Time: 48 minutes Time with patient: Greater than 35 minutes Subjective Date/time seen: 04/20/23 07:47 Interval history: 04/20/23 04/19/23 1000 Patient was sitting in the chair. Patient stated that he is feeling better however he is still having some shortness of breath along with a cough. He also stated that his legs are still swollen and it really does hurt when he stands to urinate or move. He denies any current chest pain, nausea, vomiting, diarrhea constipation he denies any production with his cough. He also denies any burning or pain with urination. 04/18/23? 20:30 This is a pleasant 77-year-old male with diastolic congestive heart failure, atrial flutter status post cardioversion, hypertension, obstructive sleep apnea, chronic kidney disease, and chronic obstructive pulmonary disease who presented to the emergency department for evaluation of shortness of breath. The patient provides the following history. He endorses increasing dyspnea on lesser and lesser exertion over the past 30 days or so. He has chronic lower extremity edema however his legs have been increasingly more swollen and he is now swollen up into the abdomen. Weight is also up. He states compliance with his home medications. He he and his family members were recently on vacation and he admits that perhaps he did n
--- NOTE | 2023-04-20 07:47 | PM.IMPN ---
Progress Note: A&P Assessment and Plan (1) Acute on chronic diastolic congestive heart failure: Code(s): I50.33 - Acute on chronic diastolic (congestive) heart failure Status: Acute Assessment and Plan: Presented with bilateral lower extremity edema with worsening dyspnea and weight gain over the last month Acute on chronic combined systolic and diastolic heart failure in exacerbation NED (08/03/22) showed EF of 45-50% with global hypokinesis and moderate mitral and tricuspid regurgitation BNP 186 Trops negative Chest xray shows central congestive change and probably minimal pulmonary edema IV lasix 40mg IV BID increased to TID Continue home entresto, metoprolol Add aldactone 25 mg PO daily Trend urine output Down 1L Daily weights Strict I & Os Convert to PO lasix when improving (2) Hypertension: Qualifiers: Hypertension type: primary hypertension Qualified Code(s): I10 - Essential (primary) hypertension Code(s): I10 - Essential (primary) hypertension Status: Inactive Assessment and Plan: Current BP 134/50 Continue Home entresto, metoprolol Trend Blood pressure Adjust therapy as indicated (3) Obstructive sleep apnea treated with BiPAP: Code(s): G47.33 - Obstructive sleep apnea (adult) (pediatric) Status: Acute Assessment and Plan: Continue PAP machine at home settings (4) Chronic anticoagulation: Code(s): Z79.01 - longterm (current) use of anticoagulants Status: Acute Assessment and Plan: History of Afib Continue eliquis bleeding precautions (5) SHUBHAM (acute kidney injury): Code(s): N17.9 - Acute kidney failure, unspecified Status: Acute Assessment and Plan: BUN/Cr elevated today at 25/1.50 Most likely from over diuresis Baseline creatinine 1.10 trend urine output trend labs decrease lasix to 40mg PO daily renal dose medications Avoid nephro toxic medications Time Spent With Patient Time: 48 minutes Time with patient: Greater than 35 minutes Subjective Date/time seen: 04/20/23 07:47 Interval history: 04/20/23 04/19/23 1000 Patient was sitting in the chair. Patient stated that he is feeling better however he is still having some shortness of breath along with a cough. He also stated that his legs are still swollen and it really does hurt when he stands to urinate or move. He denies any current chest pain, nausea, vomiting, diarrhea constipation he denies any production with his cough. He also denies any burning or pain with urination. 04/18/23? 20:30 This is a pleasant 77-year-old male with diastolic congestive heart failure, atrial flutter status post cardioversion, hypertension, obstructive sleep apnea, chronic kidney disease, and chronic obstructive pulmonary disease who presented to the emergency department for evaluation of shortness of breath. The patient provides the following history. He endorses increasing dyspnea on lesser and lesser exertion over the past 30 days or so. He has chronic lower extremity edema however his legs have been increasingly more swollen and he is now swollen up into the abdomen. Weight is also up. He states compliance with his home medications. He he and his family members were recently on vacation and he admits that perhaps he did not follow his diet as strictly as usual. They went to [place] and due to his edema and shortness of breath, he was not able to do much unfortunately. He denies fever, chills, sweats, cold flu symptoms, chest pain, pleuritic pain, sensations of racing heart, nausea, vomiting, and diarrhea. Venous Doppler ultrasound done in the ED was negative for DVT. ProBNP was only 186 however he looks significantly volume overloaded he is being admitted in this setting for diuresis. At the time my evaluation he feels fine and has no complaints.? He
[2023-04-20] MEDS: FLUTICASONE/UMECLIDIN/VILANTER 100-62.5-25 MCG ELLIPTA 1 PUFF INHALATION (08:04)
[2023-04-20] MEDS: PANTOPRAZOLE 40 MG TABLET PO (09:00)
[2023-04-20] MEDS: APIXABAN 5 MG TABLET PO (09:00)
[2023-04-20] MEDS: SACUBITRIL/VALSARTAN 49-51 MG TABLET 1 TABLET PO (09:00)
[2023-04-20] MEDS: FERROUS SULFATE 325 MG TABLET DR PO (09:00)
[2023-04-20] MEDS: SPIRONOLACTONE 25 MG TABLET PO (09:01)
[2023-04-20] MEDS: FUROSEMIDE 40 MG TABLET PO (09:01)
[2023-04-20] MEDS: ASPIRIN 81 MG CHEWABLE TABLET PO (09:01)
[2023-04-20] MEDS: METOPROLOL TARTRATE 25 MG TABLET PO (09:01)
[2023-04-20] MEDS: POTASSIUM CHLORIDE 20 MEQ ER TABLET PO (09:02)
[2023-04-20] MEDS: CHOLECALCIFEROL 1,000 UNITS TABLET 1000 UNITS PO ×2 (09:02→12:26)
--- NOTE | 2023-04-20 11:07 | P.DS_ITS ---
DS: Admitting Diagnosis Discharge Date 04/20/23 1030 Admitting Diagnosis CHF exacerbation DS: Discharge Diagnosis Discharge Diagnosis (1) Acute on chronic diastolic congestive heart failure: Code(s): I50.33 - Acute on chronic diastolic (congestive) heart failure Status: Acute Assessment and Plan: * Presented with bilateral lower extremity edema with worsening dyspnea and weight gain over the last month * Acute on chronic combined systolic and diastolic heart failure in exacerbation * NED (08/03/22) showed EF of 45-50% with global hypokinesis and moderate mitral and tricuspid regurgitation * BNP 186 * Trops negative * Chest xray shows central congestive change and probably minimal pulmonary edema * IV lasix 40mg IV BID increased to TID, decrease to PO 40mg Daily * Continue home entresto, metoprolol * Add aldactone 25 mg PO daily * Trend urine output * Down 1L * Daily weights * Strict I & Os * Convert to PO lasix (2) Hypertension: Qualifiers: Hypertension type: primary hypertension Qualified Code(s): I10 - Essential (primary) hypertension Code(s): I10 - Essential (primary) hypertension Status: Inactive Assessment and Plan: * Current BP 134/50 * Continue Home entresto, metoprolol * Trend Blood pressure * Adjust therapy as indicated (3) Obstructive sleep apnea treated with BiPAP: Code(s): G47.33 - Obstructive sleep apnea (adult) (pediatric) Status: Acute Assessment and Plan: * Continue PAP machine at home settings (4) Chronic anticoagulation: 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 Status: Acute Assessment and Plan: * History of Afib * Continue eliquis * bleeding precautions (5) SHUBHAM (acute kidney injury): Code(s): N17.9 - Acute kidney failure, unspecified Status: Acute Assessment and Plan: * BUN/Cr elevated today at 25/1.50 * Most likely from over diuresis * Give a bolus of 250ml * recheck CMP after bolus * Baseline creatinine 1.10 * trend urine output * trend labs * decrease lasix to 40mg PO daily * renal dose medications * Avoid nephro toxic medications DS: Summary Hospital Course Hospital Course: Patient is [age]-year-old male with past medical history of heart failure, atrial flutter, hypertension, KIRSTEN, CKD, COPD who presented to the ED with complaints of shortness of breath. TTE from August 21 showed an EF of 45-50% with global hypokinesis. BNP was 186. Troponins were negative. Chest x-ray showed congestive changes and probable minimal pulmonary edema. Patient was started on IV Lasix b.i.d. however was increased to t.i.d.. Entresto and metoprolol were continued and spironolactone was added. Patient denies any current chest pain, shortness a breath, nausea, vomiting, diarrhea constipation. Creatinine did bump to 1.50 from a baseline of 1.10. Fluid bolus was given and patient's current creatinine is 1.40. Will place patient back on his home dose of Lasix 40 mg p.o. daily. Currently patient is stable for discharge for labs and vital signs. All questions were answered and plan of care was updated. Did instruct patient about Adonay hose and compression therapy as this will also help keep the swelling down. Status at Discharge Functional status at discharge: uses cane/walker Overall status at discharge: patient is progressing back t
--- NOTE | 2023-04-20 11:07 | PM.DS ---
DS: Admitting Diagnosis Discharge Date 04/20/23 1030 Admitting Diagnosis CHF exacerbation DS: Discharge Diagnosis Discharge Diagnosis (1) Acute on chronic diastolic congestive heart failure: Code(s): I50.33 - Acute on chronic diastolic (congestive) heart failure Status: Acute Assessment and Plan: Presented with bilateral lower extremity edema with worsening dyspnea and weight gain over the last month Acute on chronic combined systolic and diastolic heart failure in exacerbation NED (08/03/22) showed EF of 45-50% with global hypokinesis and moderate mitral and tricuspid regurgitation BNP 186 Trops negative Chest xray shows central congestive change and probably minimal pulmonary edema IV lasix 40mg IV BID increased to TID, decrease to PO 40mg Daily Continue home entresto, metoprolol Add aldactone 25 mg PO daily Trend urine output Down 1L Daily weights Strict I & Os Convert to PO lasix (2) Hypertension: Qualifiers: Hypertension type: primary hypertension Qualified Code(s): I10 - Essential (primary) hypertension Code(s): I10 - Essential (primary) hypertension Status: Inactive Assessment and Plan: Current BP 134/50 Continue Home entresto, metoprolol Trend Blood pressure Adjust therapy as indicated (3) Obstructive sleep apnea treated with BiPAP: Code(s): G47.33 - Obstructive sleep apnea (adult) (pediatric) Status: Acute Assessment and Plan: Continue PAP machine at home settings (4) Chronic anticoagulation: Code(s): Z79.01 - [facility]FP (current) use of anticoagulants Status: Acute Assessment and Plan: History of Afib Continue eliquis bleeding precautions (5) SHUBHAM (acute kidney injury): Code(s): N17.9 - Acute kidney failure, unspecified Status: Acute Assessment and Plan: BUN/Cr elevated today at 25/1.50 Most likely from over diuresis Give a bolus of 250ml recheck CMP after bolus Baseline creatinine 1.10 trend urine output trend labs decrease lasix to 40mg PO daily renal dose medications Avoid nephro toxic medications DS: Summary Hospital Course Hospital Course: Patient is [age]-year-old male with past medical history of heart failure, atrial flutter, hypertension, KIRSTEN, CKD, COPD who presented to the ED with complaints of shortness of breath. TTE from August 21 showed an EF of 45-50% with global hypokinesis. BNP was 186. Troponins were negative. Chest x-ray showed congestive changes and probable minimal pulmonary edema. Patient was started on IV Lasix b.i.d. however was increased to t.i.d.. Entresto and metoprolol were continued and spironolactone was added. Patient denies any current chest pain, shortness a breath, nausea, vomiting, diarrhea constipation. Creatinine did bump to 1.50 from a baseline of 1.10. Fluid bolus was given and patient's current creatinine is 1.40. Will place patient back on his home dose of Lasix 40 mg p.o. daily. Currently patient is stable for discharge for labs and vital signs. All questions were answered and plan of care was updated. Did instruct patient about Adonay hose and compression therapy as this will also help keep the swelling down. Status at Discharge Functional status at discharge: uses cane/walker Overall status at discharge: patient is progressing back to baseline Time Spent with Patient Time attestation: Total time spent providing and/or coordinating discharge services: 48 minutes Time spent: Greater than 30 minutes Specific discharge activities: Diagnostic testing, chart review, developing a treatment plan, education, care coordination documentation, physical exam, result review Exam Narrative: General: well-nourished, well-appearing 77-year-old male, sitting up in chair, comfortable, NARD Neuro: awake, alert and oriented x4, speech clear, no focal neuro de
[2023-04-20] MEDS: SODIUM CHLORIDE 0.9% IV 250 ML 999 ML IV CONT (12:28)
[2023-04-20 15:16] LABS: Anion Gap 8 mmol/L (8-16); Blood Urea Nitrogen 28 mg/dL (9-20); Calcium 9.5 mg/dL (8.4-10.2); Carbon Dioxide 29 mmol/L (22-30); Chloride 97 mmol/L (98-107); Estimated CRCL calculation 53 ml/min; Estimated Glomerular Filt Rate 49; Glucose 104 mg/dL (65-110); Potassium 4.3 mmol/L (3.4-5.0); Sodium 134 mmol/L (137-145)
== END 2023-04-20 16:20 | disposition home or self-care (01) ==
LOC: ANHED 16:18 → ANH2MED 19:15
PROVIDERS: Emergency Medicine; Nurse Practitioner; Physician Assistant; Admitting Provider Student in an Organized Health Care Education/Training Program; Emergency Provider Student in an Organized Health Care Education/Training Program; PCP Family Medicine; Visit Provider Chiropractor
DX: I50.33 Acute on chronic diastolic (congestive) heart failure (principal); N17.9 Acute kidney failure, unspecified; Z79.01 Long term (current) use of anticoagulants; J44.9 Chronic obstructive pulmonary disease, unspecified; Z79.82 Long term (current) use of aspirin; I13.0 Hypertensive heart and chronic kidney disease with heart failure and stage 1 through stage 4 chronic kidney disease, or unspecified chronic kidney disease; N18.9 Chronic kidney disease, unspecified; E78.5 Hyperlipidemia, unspecified; K21.9 Gastro-esophageal reflux disease without esophagitis; Z86.711 Personal history of pulmonary embolism; G47.33 Obstructive sleep apnea (adult) (pediatric); Z20.822 Contact with and (suspected) exposure to COVID-19
CPT/HCPCS: 36415; 71046; 80048; 80053; 83735; 83880; 84443; 84484; 85025; 85610; 85730; 87635; 93005; 93970; 94640; 96374; 96376; 99285; A9270; G0378; J1940; J7050

== ENCOUNTER → 2023-05-07 15:23 | Outpatient (CLI) | payer MEDICARE, SELFPAY ==
--- NOTE | ~2023-05-07 | XR_ITS ---
Lumbosacral Spine: AP, oblique, and lateral views Clinical History: Pain Findings: The normal lordotic curve is maintained. And no fracture or subluxation evident. There are mild degenerative disc changes throughout the lumbar spine. There are moderate to advanced facet join t degenerative changes of the lumbar spine. The sacroiliac joints are normally outlined. Impression: Mild to moderate degenerative spondylosis, as above. Reviewed, dictated and finalized at location [facility]. Impression: Mild to moderate degenerative spondylosis, as above.
--- NOTE | ~2023-05-07 | XR_ITS ---
Thoracic spine: Clinical Indication: Spondylosis AP and lateral views were performed. There is mild scoliotic change of the thoracic spine. There is moderate compression fracture of T12. No other fracture or subluxation seen. Paravertebral soft tissues appear normal. Impression: Moderate T12 compression fracture. Mild scoliosis. Reviewed, dictated and finalized at [facility]. Impression: Moderate T12 compression fracture. Mild scoliosis.
== END ==
PROVIDERS: PCP Family Medicine; Visit Provider Family Medicine
DX: M47.816 Spondylosis without myelopathy or radiculopathy, lumbar region (principal); M41.84 Other forms of scoliosis, thoracic region; S22.000A Wedge compression fracture of unspecified thoracic vertebra, initial encounter for closed fracture
CPT/HCPCS: 72072; 72110

== ENCOUNTER 2023-08-30 09:00 | Outpatient (RCR) | payer MEDICARE, SELFPAY ==
--- NOTE | 2023-08-15 08:54 | OPREHPOC ---
Outpatient Therapy Plan of Care This is a Multidisciplinary Plan of Care that may contain components documented by all disciplines (PT, OT, and ST.) PT Problem 1 PT Problem #1 Knowledge Deficit PT Goal 1 Goal 1* indep with HEP PT Problem 2 PT Problem #2 Pain PT Goal 1 Goal 1* pt report pain at worst 5/10 2* Oswestry self assessment functional score of 28 % limitation PT Problem 3 PT Problem #3 Impaired Strength PT Goal 1 Goal increase strength of trunk and LE's to improve mobility and stability to spine: 1* supine R and L LE exercises x 20 reps with good stability and control 2* 2 minute walking test distance of 250' 3* supine/sit transfer without laboring 4* sit/stand transfer with use of 1 UE and on first trial
--- NOTE | 2023-08-15 08:54 | PTOPEVAL1 ---
Assessment and note entered by Ally Blakely PT Evaluation Information Assessment Status Evaluation Diagnosis lumbar pain Onset chronic pain Subjective Information issues with chronic back pain; getting worse as get older; have had PT in the past, nothing really helped the pain; do not do any exercises, but walking short distances; Activity: use cane when go out, do not use in the house; decreased walking due to SOB; no falls in the past 6 months; home with ; assist with bathing, dressing; does not go into basement for the past few years; does light home and kitchen tasks; Goal: walk better and move around more; Reported Pain Level Pain Score Self Report Additional Pain Score Comments pain range of the past week: stays 5/10 most of time, 8/10 with exercises; lumbar R > L side; decrease pain: heating pad; have tramadol but not take regularly- only when pain is bad; increase pain: walking able to sleep through the night; more pain with awakening in morning; Oswestry self assessment functional score of 36% limitation in activity level also reports R hip pain Assessment PT Clinical Summary Lisandro has the diagnosis of lumbar pain. He reports chronic back pain and R hip pain, increase as he has gotten older. Medical history includes COPD and respiratory issues. He uses a cane in community with walking, and walking is limited due to SOB and back pain. Self assessment Oswetry score of 36% limitation. With the evaluation: he has decreased ROM of R hip IR; supine bridge increase pain in back; tightness of hamstrings; 2 minute walking test distance with cane 150' and stop due to SOB; weakness of trunk and LE's. Skilled PT services are indicated for modalities to decrease pain; therapeutic exercises to increase trunk and LE strength with education for HEP and postiion/posture of back. Plan of Care Interventions Elec
--- NOTE | 2023-09-05 08:51 | PCPTNOTE ---
pt canceled today's reeval due to increase pain;
--- NOTE | 2023-10-03 09:36 | PTOPDC ---
Assessment and note entered by Ally Blakely, PT Discharge Information Assessment Status Discharge - Pt Not Presen Diagnosis lumbar pain Onset chronic pain Assessment PT Clinical Summary Lisandro has received 6 PT sessions, from Jul 15 to Aug 30. He then canceled due to illness and has not returned. He will be discharged from PT at this time. The goals were not addressed. Plan of Care PT Services Indicated No
== END 2023-10-03 11:06 | disposition home or self-care (01) ==
LOC: ANHPT 09:00
PROVIDERS: PCP Family Medicine; Visit Provider Family Medicine
DX: M47.816 Spondylosis without myelopathy or radiculopathy, lumbar region (principal)
CPT/HCPCS: 97014; 97110; 97140; 97161; 97530; G0283

== ENCOUNTER 2023-09-11 00:50 | Day surgery (SDC) | payer MEDICARE, SELFPAY ==
[2023-08-23 14:21] VITALS: BMI 45.7
--- NOTE | 2023-09-07 11:00 | SUR.PREOP ---
Patient called regarding upcoming procedure. VOICEMAIL WAS LEFT REGARDING UPCOMING APPOINTMENT. INSTRUCTED TO CALL WITH ANY QUESTIONS. CONFIRMED TIME AND DATE.
--- NOTE | 2023-09-08 13:25 | PM.HPGS ---
History of Present Illness History of Present Illness Consent: Risks, benefits, and alternatives have been discussed and questions answered. Patient agrees to proceed with procedure. Chief complaint: Esophageal obstruction,Dysphagia Narrative: Danial Wilson is a 77 year old male who ?reports dysphagia to solids and liquids both.? Reports he feels sensation around the substernal notch,? he will then take small sips of water and eventually the food will go down, but he feels like it is going down slowly.? He does have a history of esophageal stricture and was dilated with an 18 and 19 mm balloon in 2020.? he also has history of microscopic colitis. Review of Systems Review of Systems: All systems reviewed & are unremarkable except as noted in HPI and below PMFSH Past Medical History Medical History Anxiety Ataxia Atrial fibrillation Diagnosed 01/2022 Atrial flutter Diagnosis 06/2022. Benign prostatic hyperplasia BMI greater than 40 Chronic anemia Chronic anticoagulation Chronic obstructive pulmonary disease Compression fx, thoracic spine Diastolic heart failure Gastroesophageal reflux disease Hyperlipidemia Hypertension Low serum vitamin D Lumbar spondylosis Obstructive sleep apnea treated with BiPAP Overactive bladder Pulmonary embolism (08/2018) Secondary erythrocytosis Related to COPD and obstructive sleep apnea. Previously received therapeutic phlebotomy. Tubulovillous adenoma of colon Ulcerative colitis Surgical History Surgical History History of bilateral cataract extraction History of cardiac catheterization History of cardioversion History of colonoscopy with polypectomy History of cystoscopy History of decompression of ulnar nerve Left elbow. History of dental surgery History of esophageal dilatation History of extraction of renal calculus History of right hemicolectomy (06/10/19) Benign tubulovillous adenoma. Hx of transurethral resection of prostate Family History Family History Father Hypertension Malignant neoplasm of prostate Sibling Diabetes mellitus Family history of cardiovascular disease Malignant neoplasm of prostate Mother Family history of rheumatic fever Heart disease Sibling Cancer Heart transplant recipient Other Family history of coronary artery disease Family history of lung cancer Social History Social History Social History: Surrogate decision maker: Akua Wilson, spouse. Code status: Full code. Smoking status: Never smoker Second hand tobacco smoke exposure: Yes ([employer] exposure) Alcohol intake: current Substance use: never Substance use type: does not use Do You Feel Safe in your Home?: Yes Lack of Transportation: No Lack of Food: Never True Current Housing: I Have Housing Concerned About Future Housing: No Difficulty Paying Gas/Electric Bills: No Difficulty Paying for Meds: No Currently Unemployed: No Education: High School Diploma/GED Difficulty w/ Childcare or Family Care: No Living arrangements: other Additional living arrangements comments: with sp Occupation/Education: retired 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 Gender identity (if verbalized by the patient): Male Spiritual care concerns: No Meds Home Medications and Allergies Home Medications Medication Instructions Recorded Confirmed Type lysine HCl 1,000 mg tablet 1,000 mg PO DAILY 05/30/19 09/03/23 History multivitamin (Multiple Vitamins 1 tablet PO DAILY 05/30/19 09/03/23 History tablet) ferrous sulfate 325 mg (65 mg 325 mg PO DAILY #60 tabs 12/16/19 09/03/23 Rx iron) tablet cholecalciferol (vitamin D3) 100 4,000 unit PO DAILY 04/18/21 09/03/23 History mcg (
[2023-09-11 11:16] VITALS: BP 136/64; PULSE 71; RESP 20; TEMP 36.3; O2SAT 97; BMI 47.5
[2023-09-11] MEDS: LACTATED RINGERS 1,000 ML 150 ML IV CONT (11:29)
--- NOTE | 2023-09-11 12:08 | WPDANESEPPF ---
Anes - Initial Pre Proc Eval Procedure: Operation Date: 09/11/23 12:30 Proposed Procedures p Esophagogastroduodenoscopy - Ananda Guevara MD Date/Time: 09/11/23 12:08 Surgeon: Ananda Guevara MD Pre Op Diagnosis: Esophageal obstruction,Dysphagia Patient Data Age: 77 Gender: M Height: 1.73 m Weight: 141.9 kg Last Vital Signs Temp 97.4 F L 09/11/23 11:16 Pulse 71 09/11/23 11:16 Resp 20 09/11/23 11:16 BP 136/64 09/11/23 11:16 Pulse Ox 97 09/11/23 11:16 O2 Del Method Room Air 09/11/23 11:16 Allergies Allergy/AdvReac Type Severity Reaction Status Date / Time codeine AdvReac Mild CONSTIPATIO Verified 09/03/23 13:34 N methylprednisolone AdvReac Mild Vomiting Verified 09/03/23 13:34 prednisone AdvReac Unknown Vomiting Verified 09/03/23 13:34 Home Medications Medication Instructions Recorded Confirmed Type lysine HCl 1,000 mg tablet 1,000 mg PO DAILY 05/30/19 09/11/23 History multivitamin (Multiple Vitamins 1 tablet PO DAILY 05/30/19 09/11/23 History tablet) ferrous sulfate 325 mg (65 mg 325 mg PO DAILY #60 tabs 12/16/19 09/11/23 Rx iron) tablet cholecalciferol (vitamin D3) 100 4,000 unit PO DAILY 04/18/21 09/11/23 History mcg (4,000 unit) capsule (Vitamin D3) aspirin 81 mg tablet 81 mg PO DAILY 06/11/21 09/11/23 History albuterol sulfate 90 mcg/actuation 2 inh inhalation Q4H PRN shortness 12/03/21 09/11/23 Rx aerosol inhaler of breath or wheezing #8.5 grams albuterol sulfate 2.5 mg/3 mL 2.5 mg (3 mL) inhalation Q4-6H PRN 05/26/22 09/11/23 Rx (0.083 %) solution for nebulization shortness of breath or wheezing #90 mL apixaban 5 mg tablet (Eliquis) 5 mg PO DAILY 07/28/22 09/11/23 History sacubitril 49 mg-valsartan 51 mg 1 tablet PO BID 09/28/22 09/11/23 History tablet (Entresto) cyclobenzaprine 10 mg tablet 10 mg PO TID PRN pain #20 tabs 11/24/22 09/11/23 Rx balsalazide 750 mg capsule 2,250 mg PO BID #540 caps 12/20/22 09/11/23 Rx fluticasone fur. 100 mcg-umeclid 1 inh inhalation DAILY 04/18/23 09/11/23 History 62.5 mcg-vilant 25 mcg inhalat.powder (Trelegy Ellipta) metoprolol tartrate 25 mg tablet 25 mg PO BID 04/18/23 09/11/23 History furosemide 40 mg tablet 40 mg PO DAILY #30 tabs 04/20/23 09/11/23 Rx spironolactone 25 mg tablet 25 mg PO QAM #30 tabs 04/20/23 09/11/23 Rx potassium chloride 20 mEq 20 meq PO DAILY #90 tabs 06/19/23 09/11/23 Rx tablet,extended release(part/cryst) (Klor-Con M) pramipexole 1 mg tablet See Rx Instructions .Route 07/10/23 09/11/23 Rx .COMPLEX #180 tabs trazodone 100 mg tablet See Rx Instructions .Route 07/10/23 09/11/23 Rx .COMPLEX PRN insomnia #60 tabs tramadol 50 mg tablet 50 mg PO Q6H PRN pain #30 tabs 08/16/23 09/11/23 Rx omeprazole 20 mg capsule,delayed 20 mg PO DAILY #90 caps 08/23/23 09/11/23 Rx release rosuvastatin 20 mg tablet 20 mg PO HS #90 tabs 08/23/23 09/11/23 Rx roflumilast 250 mcg tablet 500 mcg PO DAILY 4 weeks #56 tabs 09/04/23 09/11/23 Rx (Daliresp) roflumilast 250 mcg tablet 250 mcg PO DAILY 4 weeks #28 tabs 09/06/23 09/11/23 Rx (Daliresp) Patient hx anesthesia problems: none Family hx anesthesia problems: none Results Review: All pre-operative results and documents have been reviewed as part of the pre-operative evaluation. [facility] Past Medical History Medical History Anxiety Ataxia Atrial fibrillation Diagnosed 01/2022 Atrial flutter Diagnosis 06/2022. Benign prostatic hyperplasia BMI greater than 40 Chronic anemia Chronic anticoagulation Chronic obstructive pulmonary disease Compression fx, thoracic spine Diastolic heart failure Gastroesophageal reflux disease Hyperlipidemia Hypertension Low serum vitamin D Lumbar spondylosis Obstructive sleep apnea treated with BiPAP Overactive bladder Pulmonary embolism (08/2018) Secondary erythrocytosis Related to COPD and obstructive sleep apnea. Previously rece
[2023-09-11 12:29] VITALS: BP 130/67; PULSE 76; RESP 16; O2SAT 100
[2023-09-11 12:39] VITALS: BP 133/82; PULSE 73; RESP 22; O2SAT 100
[2023-09-11 12:49] VITALS: BP 150/70; PULSE 71; RESP 22; O2SAT 99
== END 2023-09-11 13:02 | disposition home or self-care (01) ==
PROVIDERS: PCP Family Medicine; Visit Provider Internal Medicine Gastroenterology
PROC: 0DJ08ZZ Inspection of Upper Intestinal Tract, Via Natural or Artificial Opening Endoscopic (ICD-10-PCS; CPT 43235; principal; 2023-09-11 12:30)
DX: K22.2 Esophageal obstruction (principal); I48.91 Unspecified atrial fibrillation; J44.9 Chronic obstructive pulmonary disease, unspecified; I11.9 Hypertensive heart disease without heart failure; E78.5 Hyperlipidemia, unspecified; G47.33 Obstructive sleep apnea (adult) (pediatric); D64.9 Anemia, unspecified; K51.90 Ulcerative colitis, unspecified, without complications; N40.0 Benign prostatic hyperplasia without lower urinary tract symptoms; F41.9 Anxiety disorder, unspecified; K21.9 Gastro-esophageal reflux disease without esophagitis; E55.9 Vitamin D deficiency, unspecified; Z86.711 Personal history of pulmonary embolism; Z79.82 Long term (current) use of aspirin; Z79.51 Long term (current) use of inhaled steroids; Z79.01 Long term (current) use of anticoagulants; Z90.49 Acquired absence of other specified parts of digestive tract; E66.01 Morbid (severe) obesity due to excess calories; Z68.42 Body mass index [BMI] 45.0-49.9, adult
CPT/HCPCS: 43249; C1726; J1596; J2704; J7120

== ENCOUNTER → 2023-09-17 14:10 | Outpatient (CLI) | payer MEDICARE, SELFPAY ==
--- NOTE | ~2023-09-17 | XR_ITS ---
EXAMINATION: XR abdomen/kub 1V INDICATION: Right flank pain TECHNIQUE: Supine views of the abdomen were obtained on 2 radiographs. COMPARISON: 10/10/2022 FINDINGS: A 3 mm stone projects in the expected location of the right kidney lower pole. There is a q uestionable 2 mm stone of the left kidney. No stones are identified along the expected courses of the ureters or in the urinary bladder. There are phleboliths of the pelvis. The bowel gas pattern is nor mal. There is moderate osteoarthritis of the hips. IMPRESSION: 1. Probable bilateral nephrolithiasis. Reviewed, dictated and finalized at location L. 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
== END ==
PROVIDERS: PCP Urology; Visit Provider Urology
DX: N20.0 Calculus of kidney (principal)
CPT/HCPCS: 74018

== ENCOUNTER 2023-09-18 09:47 | Outpatient (CLI) | payer MEDICARE, SELFPAY ==
--- NOTE | ~2023-09-18 | CT_ITS ---
EXAMINATION: CT abdomen pelvis wo con DATE: 09/18/2023 10:17 INDICATION: Bilateral back pain TECHNIQUE: Computed tomography (CT) of the abdomen and pelvis was performed without intravenous contr ast. The dose-length product (DLP) was 1222.99 mGy-cm. Automated exposure control and iterative recon struction technique were employed. COMPARISON: 06/13/2021 FINDINGS: Minimal dependent atelectasis is present in the lung bases. The heart size is normal. Calci fied coronary artery atherosclerosis is noted. Punctate calcifications in an otherwise normal spleen likely represent healed granulomatous disease. The liver, pancreas, gallbladder, and adrenal glands a re normal. There is a 5 mm nonobstructing stone of the right kidney. Two nonobstructing stones of the left kidney measure 4 mm and 5 mm. Cysts of the kidneys measure up to 5.0 cm on the left. There are no stones in the ureters or bladder. No hydronephrosis or hydroureter. There are changes of right hem icolectomy. No pathologically enlarged abdominal or pelvic lymph nodes are identified. No free intrap eritoneal gas or evidence of bowel obstruction. There is calcified atherosclerosis of the aorta and m any of the other arteries. There is severe lumbar spondylosis. There is a chronic compression fractu re of T12. IMPRESSION: 1. Bilateral nonobstructing nephrolithiasis. 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
== END 2023-09-18 09:48 | disposition home or self-care (01) ==
PROVIDERS: PCP Urology; Visit Provider Urology
DX: N20.0 Calculus of kidney (principal)
CPT/HCPCS: 74176

== ENCOUNTER 2023-09-27 08:25 | Outpatient (CLI) | payer MEDICARE, SELFPAY ==
[2023-09-27 09:03] LABS: Hematocrit 45.4 % (42.0-52.0); Hemoglobin 14.3 g/dL (14.0-18.0)
== END 2023-09-27 08:26 | disposition home or self-care (01) ==
LOC: ANHSURGERY 08:29
PROVIDERS: Anesthesiology; PCP Family Medicine; Visit Provider Urology
DX: N20.0 Calculus of kidney (principal); D64.9 Anemia, unspecified; Z01.818 Encounter for other preprocedural examination
CPT/HCPCS: 36415; 85014; 85018; 87086; 87088

== ENCOUNTER 2023-10-05 00:30 | Day surgery (SDC) | payer MEDICARE, SELFPAY ==
[2023-09-25 10:07] VITALS: BMI 47.2
--- NOTE | 2023-09-25 10:15 | PC.NURSE ---
PRE-OP INSTRUCTIONS, PLEASE READ CAREFULLY Report to the Outpatient Waiting Room, entrance under the green pavilion located off [facility], at time _0830_ on date _10/05/23_. Planned Procedure Time: _1030_. Time changes happen often and if your time is changed the preop area will call you the afternoon before. - You and your visitor will be asked to self-screen and do not enter if you have any COVID symptoms. - A mask is optional within the hospital at this time. Patients may have clear liquids (water, carbonated beverages, clear teas, apple juice) until 3 hours prior to surgery (0730 AM) with a maximum of 20 ounces. - No food from midnight until time of surgery Take the following medications with a SIP of water the morning of surgery: _METOPROLOL, ROFLUMILAST, INHALERS, BREATHING TREATMENT & TRAMADOL IF NEEDED_ DO NOT STOP ANY OF YOUR OTHER PRESCRIPTION MEDICATIONS PRIOR TO SURGERY ?EXCEPT THE FOLLOWING Medications to discontinue - _ASPIRIN AND ELIQUIS PER DR. BUSTILLOS'S INSTRUCTIONS_ Medications to discontinue per ANESTHESIA - _MULTIVITAMIN 3 DAYS PRIOR TO SURGERY, Date to take last dose 10/01/23_ Please no make-up, nail upper sorbian, hairspray, perfume, deodorant, or body powder the day of surgery. No jewelry (including any body piercings) or valuables the day of surgery, leave them at home. Please take a shower or bath the night before, or the morning of, surgery with an antibacterial soap. Wear comfortable, loose fitting clothing. - Jewelry must be removed prior to entering the operating room. Rings and piercings that are not removed may be cut off. - The hospital will not accept responsibility for valuables. - Please leave all valuables, including medications, at home the day of surgery. If you are going home after surgery, a licensed bus driver/monitor must drive you home. - NO public transportation without another adult if you receive anesthesia. - We recommend that an adult stay with you for 24 hours following discharge. - We also recommend that you do not drive, make important decision, drink alcoholic beverages, or take any drugs that were not prescribed by your health care provider for at least 24 hours after your discharge time. Follow any additional instructions given to you from your surgeon. If you or anyone in your household have experienced Covid symptoms in the past week, please notify your surgeon or the nurse liaison at the phone number below for possible testing. Telephone instructions given to _PATIENT'S SPOUSE - GILSON_and asked if any additional questions and then verbalized understanding. Patient advised to call surgeon office or pre surgery nurse liaison [phone] if any additional questions.
--- NOTE | 2023-10-04 13:45 | WPDANESEPPF ---
Anes - Initial Pre Proc Eval Procedure: Operation Date: 10/05/23 10:30 Proposed Procedures p Left Extracorporeal Shock Wave Lithotripsy - Ander Ko MD Date/Time: 10/04/23 13:45 Surgeon: Ander Ko MD Pre Op Diagnosis: Left Kidney Stone Patient Data Age: 77 Gender: M Height: 1.73 m Weight: 140.9 kg Allergies Allergy/AdvReac Type Severity Reaction Status Date / Time codeine AdvReac Mild CONSTIPATIO Verified 10/05/23 09:33 N methylprednisolone AdvReac Mild Vomiting Verified 10/05/23 09:33 prednisone AdvReac Unknown Vomiting Verified 10/05/23 09:33 Home Medications Medication Instructions Recorded Confirmed Type multivitamin (Multiple Vitamins 1 tablet PO DAILY 05/30/19 10/01/23 History tablet) ferrous sulfate 325 mg (65 mg 325 mg PO DAILY #60 tabs 12/16/19 10/01/23 Rx iron) tablet cholecalciferol (vitamin D3) 100 4,000 unit PO DAILY 04/18/21 10/01/23 History mcg (4,000 unit) capsule (Vitamin D3) aspirin 81 mg tablet 81 mg PO DAILY 06/11/21 10/01/23 History albuterol sulfate 90 mcg/actuation 2 inh inhalation Q4H PRN shortness 12/03/21 10/01/23 Rx aerosol inhaler of breath or wheezing #8.5 grams albuterol sulfate 2.5 mg/3 mL 2.5 mg (3 mL) inhalation Q4-6H PRN 05/26/22 10/01/23 Rx (0.083 %) solution for nebulization shortness of breath or wheezing #90 mL sacubitril 49 mg-valsartan 51 mg 1 tablet PO BID 09/28/22 10/01/23 History tablet (Entresto) fluticasone fur. 100 mcg-umeclid 1 inh inhalation DAILY 04/18/23 10/01/23 History 62.5 mcg-vilant 25 mcg inhalat.powder (Trelegy Ellipta) metoprolol tartrate 25 mg tablet 25 mg PO BID 04/18/23 10/01/23 History furosemide 40 mg tablet 40 mg PO DAILY #30 tabs 04/20/23 10/01/23 Rx spironolactone 25 mg tablet 25 mg PO QAM #30 tabs 04/20/23 10/01/23 Rx potassium chloride 20 mEq 20 meq PO DAILY #90 tabs 06/19/23 10/01/23 Rx tablet,extended release(part/cryst) (Klor-Con M) pramipexole 1 mg tablet See Rx Instructions .Route 07/10/23 10/01/23 Rx .COMPLEX #180 tabs trazodone 100 mg tablet See Rx Instructions .Route 07/10/23 10/01/23 Rx .COMPLEX PRN insomnia #60 tabs tramadol 50 mg tablet 50 mg PO Q6H PRN pain #30 tabs 08/16/23 10/01/23 Rx omeprazole 20 mg capsule,delayed 20 mg PO DAILY #90 caps 08/23/23 10/01/23 Rx release rosuvastatin 20 mg tablet 20 mg PO HS #90 tabs 08/23/23 10/01/23 Rx balsalazide 750 mg capsule 2,250 mg PO BID #540 caps 09/27/23 10/01/23 Rx balsalazide 750 mg capsule 2,250 mg PO BID #540 caps 09/27/23 10/01/23 Rx lysine HCl 1,000 mg tablet 1,000 mg PO DAILY 10/01/23 10/01/23 History Patient hx anesthesia problems: none Family hx anesthesia problems: none Results Review: All pre-operative results and documents have been reviewed as part of the pre-operative evaluation. [facility] Past Medical History Medical History (Updated 10/01/23 @ 14:00 by Brandon Saavedra MD) Anxiety Ataxia Atrial fibrillation Diagnosed 01/2022 Atrial flutter Diagnosis 06/2022. Benign prostatic hyperplasia BMI greater than 40 Chronic anemia Chronic anticoagulation Chronic obstructive pulmonary disease Compression fx, thoracic spine Diastolic heart failure Gastroesophageal reflux disease Hyperlipidemia Hypertension Low serum vitamin D Lumbar spondylosis Obstructive sleep apnea treated with BiPAP Overactive bladder Pulmonary embolism (08/2018) Secondary erythrocytosis Related to COPD and obstructive sleep apnea. Previously received therapeutic phlebotomy. Tubulovillous adenoma of colon Ulcerative colitis Surgical History Surgical History (Updated 10/04/23 @ 13:46 by Jac aPrham DO) History of bilateral cataract extraction History of cardiac catheterization History of cardioversion History of colonoscopy with polypectomy History of cystoscopy History of decompression of ulnar nerve Left elbow. History of dental surgery History of esophageal dilatation History of extraction of r
[2023-10-05] VITALS (8 sets, daily range): BP systolic 117–153; BP diastolic 52–75; PULSE 50–75; RESP 12–18; TEMP 36.3; O2SAT 92–98
--- NOTE | ~2023-10-05 | XR_ITS ---
EXAMINATION: XR abdomen/kub 1V INDICATION: Bilateral nephrolithiasis TECHNIQUE: Supine views of the abdomen were obtained on 2 radiographs. COMPARISON: 09/17/2023; CT, 09/18/2023 FINDINGS: There is a 5 mm stone of the right kidney. Stones measuring 4 mm and 3 mm are noted in the left kidney lower pole. No stones are identified along the expected courses of the ureters. There are phleboliths of the pelvis. The bowel gas pattern is normal. IMPRESSION: 1. Bilateral nephrolithiasis. 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
--- NOTE | 2023-10-05 06:24 | WPDHPUPDATE1 ---
History and Physical Update Update Date/Time: 10/05/23 06:24 History and Physical has been reviewed, including an updated exam of the patient. There are NO changes in the patient's condition. Risks, benefits, and alternatives have been discussed and questions answered. Patient agrees to proceed with procedure.
[2023-10-05] MEDS: LACTATED RINGERS 1,000 ML 30 ML IV CONT (09:20)
[2023-10-05 09:48] LABS: INR 1.1; Partial Thromboplastin Time 27.5 SECONDS (22.3-36.8); Prothrombin Time 14.4 Seconds (11.1-14.7)
[2023-10-05 09:50] LABS: Anion Gap 6 mmol/L (8-16); Blood Urea Nitrogen 13 mg/dL (9-20); Calcium 9.7 mg/dL (8.4-10.2); Carbon Dioxide 26 mmol/L (22-30); Chloride 105 mmol/L (98-107); Estimated CRCL calculation 67 ml/min; Estimated Glomerular Filt Rate > 60; Glucose 103 mg/dL (65-110); Potassium 4.2 mmol/L (3.4-5.0); Sodium 137 mmol/L (137-145)
[2023-10-05] MEDS: ceFAZolin 3 GM/D5W 100 ML 100 ML IVPB (10:09)
--- NOTE | 2023-10-05 10:46 | W.PM.PROC2 ---
Procedure Note - Detailed Date of Procedure 10/05/23 Pre-op Diagnosis Left Kidney Stones Post-op Diagnosis Same Procedure Performed Left ESWL Surgeon Ander Ko MD Anesthesia General Description of Procedure The patient was brought to the operative suite where he was placed in the supine position on the Dornier lithotripsy table. The focal point of the lithotripter was placed at left renal calculi. A total of 2500 shocks were delivered at a power setting of 4 to three stones in his left kidney. There appeared to be good fragmentation of the stone. The patient tolerated the procedure well and was taken to the recovery room in good condition.
[2023-10-05] MEDS: fentaNYL CITRATE INJ (*CRX) 100 MCG/2 ML VIAL 25 MCG IV PUSH (11:47)
[2023-10-05] MEDS: KETOROLAC 30 MG/ML VIAL (*BKC) IV PUSH (11:52)
== END 2023-10-05 13:22 | disposition home or self-care (01) ==
PROVIDERS: Anesthesiology; PCP Family Medicine; Visit Provider Urology
PROC: (CPT 50590; principal; 2023-10-05 10:30)
DX: N20.0 Calculus of kidney (principal); I13.0 Hypertensive heart and chronic kidney disease with heart failure and stage 1 through stage 4 chronic kidney disease, or unspecified chronic kidney disease; I50.9 Heart failure, unspecified; N18.30 Chronic kidney disease, stage 3 unspecified; N32.81 Overactive bladder; N40.0 Benign prostatic hyperplasia without lower urinary tract symptoms; F41.9 Anxiety disorder, unspecified; D64.9 Anemia, unspecified; I48.91 Unspecified atrial fibrillation; I48.92 Unspecified atrial flutter; E78.00 Pure hypercholesterolemia, unspecified; K21.9 Gastro-esophageal reflux disease without esophagitis; G47.33 Obstructive sleep apnea (adult) (pediatric); Z99.89 Dependence on other enabling machines and devices; J44.9 Chronic obstructive pulmonary disease, unspecified; E66.01 Morbid (severe) obesity due to excess calories; Z68.42 Body mass index [BMI] 45.0-49.9, adult; Z86.711 Personal history of pulmonary embolism; Z79.82 Long term (current) use of aspirin; Z79.51 Long term (current) use of inhaled steroids; Z79.899 Other long term (current) drug therapy
CPT/HCPCS: 50590; 36415; 74018; 80048; 85014; 85018; 85610; 85730; 87086; J0690; J1885; J2405; J2704; J3010; J7120

== ENCOUNTER 2023-10-16 16:05 | Outpatient (CLI) | payer MEDICARE, SELFPAY ==
--- NOTE | ~2023-10-16 | CT_ITS ---
EXAMINATION: CT abdomen pelvis wo con DATE: 10/16/2023 16:36 INDICATION: CALCULUS OF KIDNEY TECHNIQUE: Computed tomography (CT) of the abdomen and pelvis was performed without intravenous contr ast. Automated exposure control and iterative reconstruction technique were employed. The dose-length product was 1242.95 mGy-cm. COMPARISON: 09/18/2023. FINDINGS: Lower thorax: Aortic valve and mitral calcification. Coronary artery calcification. Dependent scar/at electasis with peripheral reticulation. Liver: Normal. Biliary/Gallbladder: Gallbladder is collapsed. No bile duct dilation. Pancreas: Mild atrophy. Spleen: Granulomatous calcification. Adrenals:No mass. Kidneys: Multiple simple left renal cysts. 9 mm nonobstructing right midpole calcification. 2-3 mm no nobstructing calcifications in the left kidney. GI tract: No small or large bowel dilation. Right hemicolectomy with uncomplicated hepatic flexure an astomosis. Appendix not visualized Diverticulosis without diverticulitis. Mesentery/Peritoneum: No ascites, mass, or free air. Retroperitoneum: No mass. Atherosclerotic abdominal aortic and/or arterial calcifications. Pelvis: Pelvic organs are within normal limits. Soft Tissues: Small fat-containing umbilical and bilateral inguinal hernias Bones: No acute osseous finding. Stable moderate compression deformity at T12. IMPRESSION: No acute abdominopelvic process detected. Specifically there is no CT evidence of obstructive uropath y. Reviewed, dictated and finalized at location K. IMPRESSION: No acute abdominopelvic process detected. Specifically there is no CT evidence of obstructive uropathy.
== END 2023-10-16 16:06 | disposition home or self-care (01) ==
PROVIDERS: PCP Family Medicine; Visit Provider Urology
DX: N20.0 Calculus of kidney (principal)
CPT/HCPCS: 74176

== ENCOUNTER 2023-10-25 11:31 | Outpatient (CLI) | payer MEDICARE, SELFPAY ==
--- NOTE | ~2023-10-25 | XR_ITS ---
EXAMINATION: XR lumbar spine 2-3V DATE: 10/25/2023 12:43 INDICATION: Low back pain TECHNIQUE: Anteroposterior and lateral views of the lumbar spine, and cone-down lateral view of the l umbosacral junction were obtained. COMPARISON: 05/07/2023 FINDINGS: Bone alignment is normal. There is no acute fracture. There is a chronic compression fractu re of T12 without significant change. The lumbar vertebral body heights are maintained. There is mode rate loss of intervertebral disc space height throughout the lumbar spine. Calcified atherosclerosis is noted. IMPRESSION: 1. Moderate lumbar spondylosis without acute findings or significant interval change. 2. Stable chronic T12 compression fracture. Reviewed, dictated and finalized at location A. IMPRESSION: 1. Moderate lumbar spondylosis without acute findings or significant interval c marlyn. 2. Stable chronic T12 compression fracture.
--- NOTE | ~2023-10-25 | XR_ITS ---
EXAMINATION: XR thoracic spine 2V DATE: 10/25/2023 12:43 INDICATION: Back pain TECHNIQUE: AP, lateral and lateral swimmer's views of the thoracic spine were obtained. COMPARISON: 05/07/2023 FINDINGS: There is a chronic an unchanged compression fracture of T12. The bones are osteopenic which limits the sensitivity for fracture however no new fracture of the thoracic spine is seen. There is severe loss of intervertebral disc space height throughout the thoracic spine. There are 25 degrees o f lower thoracic levoscoliosis. IMPRESSION: 1. Chronic T12 compression fracture and severe thoracic spondylosis without definite new fracture w[place] ntified. If there is high clinical suspicion for fracture, further evaluation by CT or MRI is recomme nded. Reviewed, dictated and finalized at location A. IMPRESSION: 1. Chronic T12 compression fracture and severe thoracic spondylosis without def inite new fracture identified. If there is high clinical suspicion for fracture , further evaluation by CT or MRI is recommended.
--- NOTE | ~2023-10-25 | XR_ITS ---
XR chest 2V 10/25/2023 12:43 Indication: Shortness of breath Procedure: 2 view chest Comparison: Comparison to multiple prior studies sequentially, with oldest reviewed study dated 09/2022. Findings: There is mild interstitial edema. Elevated right diaphragm. No pleural effusion or pneumoth orax. No acute osseous abnormality. Impression: 1: Mild interstitial edema. Reviewed, dictated and finalized at location L. Impression: 1: Mild interstitial edema.
== END 2023-10-25 11:32 ==
LOC: MICIMG 11:32
PROVIDERS: PCP Nurse Practitioner Family; Visit Provider Nurse Practitioner Family
DX: S22.080A Wedge compression fracture of T11-T12 vertebra, initial encounter for closed fracture (principal); M43.04 Spondylolysis, thoracic region; M43.06 Spondylolysis, lumbar region; J84.9 Interstitial pulmonary disease, unspecified; X58.XXXA Exposure to other specified factors, initial encounter
CPT/HCPCS: 71046; 72070; 72100

== ENCOUNTER 2023-11-05 11:46 | Emergency (ER) | payer MEDICARE, SELFPAY ==
[2023-11-05] VITALS (11 sets, daily range): BP systolic 135–162; BP diastolic 57–90; PULSE 67–74; RESP 18–30; TEMP 36.8–36.9; O2SAT 94–99
--- NOTE | ~2023-11-05 | CT_ITS ---
EXAMINATION: CT abdomen pelvis wo con DATE: 11/05/2023 16:17 INDICATION: flank pain, left sided abdominal pain TECHNIQUE: Computed tomography (CT) of the abdomen and pelvis was performed without intravenous contr ast. Automated exposure control and iterative reconstruction technique were employed. The dose-length product was 1853.58 mGy-cm. COMPARISON: 10/16/2023. FINDINGS: Lower thorax: Mild peripheral reticulation and basilar atelectasis/scar. Aortic, mitral, and coronary artery calcifications. Liver: Normal. Biliary/Gallbladder: Dependent stones/sludge, no inflammatory change. No bile duct dilation. Pancreas: Mild atrophy. Spleen: Granulomatous calcifications. Adrenals:No mass. Kidneys: No suspicious mass, obstructing stone, or hydronephrosis. Nonobstructing calculi measuring u p to 8 mm in the right upper pole. Multiple simple left renal cysts and hypodensities that are too sm all to characterize but also likely represent cysts. GI tract: Status post right hemicolectomy, uncomplicated right upper quadrant anastomosis. The rectum is mildly dilated to 6.4 cm by fecal material. No small or large bowel dilation. Appendix surgically absent. Diverticulosis without diverticulitis. Mesentery/Peritoneum: No ascites, mass, or free air. Retroperitoneum: No mass. Atherosclerotic abdominal aortic and/or arterial calcifications. Pelvis: Pelvic organs are within normal limits. Soft Tissues: Small uncomplicated fat-containing umbilical and bilateral inguinal hernias. Bones: No acute osseous finding. Stable moderate T12 compression deformity. IMPRESSION: Possible mild fecal impaction. Otherwise, no acute abdominopelvic process detected. Reviewed, dictated and finalized at location K.
--- NOTE | ~2023-11-05 | XR_ITS ---
EXAMINATION: XR chest 2V DATE: 11/05/2023 14:52 INDICATION: Shortness of breath. Congestive heart failure. TECHNIQUE: Frontal and lateral views of the chest were obtained. COMPARISON: Chest 2 views 10/25/23, CT abdomen and pelvis 10/16/2023 FINDINGS: There is chronic eventration of anterior right hemidiaphragm. There is a diffuse interstiti al pattern in the lungs. No pleural effusion or pneumothorax. The heart size is normal. IMPRESSION: 1. Stable mild chronic interstitial lung disease. Reviewed, dictated and finalized at location A.
--- NOTE | 2023-11-05 13:44 | ED.WEAKNESS ---
HPI - Weakness General Chief complaint: Weakness <Jhon Espinosa APRN - Last Filed: 11/05/23 14:01> Stated complaint: weak <Jhon Espinosa APRN - Last Filed: 11/05/23 14:01> Time Seen by Provider: 11/05/23 13:44 <Jhon Espinosa APRN - Last Filed: 11/05/23 14:01> Focused HPI: Mr. Wilson is a 77-year-old male patient presenting to the ER today with complaints of shortness of breath, increasing weakness, and nausea. Reports he has got decreased appetite. He reports that the symptoms have gradually been getting worse since July. States he had some kidney stones and saw Dr. Ko in July and had lithotripsy procedure done and since then he has not felt right. Has seen Dr. Sepulveda [employer] and were concerned that he had congestive heart failure. General: Well-developed, morbidly obese, increased work to breathe, has to stop speaking after 3-4 words to take a breath Head: Normocephalic, atraumatic. Cardio: Regular rate and rhythm, s1 and s2 normal, no murmur appreciated. Resp: Diminished breath sounds in the bases, no rhonchi, rales, wheezing or rubs. Abdomen: Soft, pliable, bowel sounds present in all quadrants, non-tender to palpation, no organomegly, no CVAT tenderness. Extremities: No deformity, 1+ pitting edema in the right lower extremity trace of pitting edema in the left lower extremity, no cyanosis, capillary refill less than 2 seconds, peripheral pulses palpable and strong. Patient screened in triage and initial orders placed. Additional care and disposition to be based upon diagnostic testing and treatment. <Jhon Espinosa APRN - Last Filed: 11/05/23 14:01> Source: patient <Jhon MARINA Espinosa - Last Filed: 11/05/23 14:01> Mode of arrival: ambulatory <Jhon Espinosa APRN - Last Filed: 11/05/23 14:01> Limitations: no limitations <Jhon Espinosa APRN - Last Filed: 11/05/23 14:01> History of Present Illness HPI Narrative: 77-year-old male presenting to the emergency department for evaluation for intermittent shortness of breath some weakness and concern for an outpatient x-ray showing interstitial edema. <Julio Nazario MD - Last Filed: 11/05/23 19:27> Related Data Home medications: Home Medications Medication Instructions Recorded Confirmed multivitamin (Multiple Vitamins 1 tablet PO DAILY 05/30/19 10/24/23 tablet) cholecalciferol (vitamin D3) 100 4,000 unit PO DAILY 04/18/21 10/24/23 mcg (4,000 unit) capsule (Vitamin D3) aspirin 81 mg tablet 81 mg PO DAILY 06/11/21 10/24/23 sacubitril 49 mg-valsartan 51 mg 1 tablet PO BID 09/28/22 10/24/23 tablet (Entresto) fluticasone fur. 100 mcg-umeclid 1 inh inhalation DAILY 04/18/23 10/24/23 62.5 mcg-vilant 25 mcg inhalat.powder (Trelegy Ellipta) metoprolol tartrate 25 mg tablet 25 mg PO BID 04/18/23 10/24/23 lysine HCl 1,000 mg tablet 1,000 mg PO DAILY 10/01/23 10/24/23 ketorolac 10 mg tablet 10 mg PO Q6H 10/24/23 10/24/23 <Jhon Espinosa APRN - Last Filed: 11/05/23 14:01> Allergies/Adverse reactions: Allergies Allergy/AdvReac Type Severity Reaction Status Date / Time codeine AdvReac Mild CONSTIPATIO Verified 11/05/23 11:50 N methylprednisolone AdvReac Mild Vomiting Verified 11/05/23 11:50 prednisone AdvReac Unknown Vomiting Verified 11/05/23 11:50 <Jhon Espinsoa APRN - Last Filed: 11/05/23 14:01> Review of Systems Review of Systems: All systems reviewed & are unremarkable except as noted in HPI and below <Julio Nazario MD - Last Filed: 11/05/23 19:27> PMFSH Past Medical History Medical History: Medical History (Updated 11/05/23 @ 17:59 by Julio Nazario MD) Anxiety Ataxia Atrial fibrillation Diagnosed 01/2022 Atrial flutter Diagnosis 06/2022. Benign prostatic hyperplasia BMI greater than 40 Chronic anemia Chronic anticoagulation Chronic obstructive pulmonary disease Compression fx, thoracic spine Diastolic h
--- NOTE | 2023-11-05 14:09 | ECG_ITS ---
Measurements Intervals [place] Rate: 66 P: -24 [place]: 145 QRS: -56 QRSD: 158 T: 6 QT: 444 Avg RR 897 QTc: 458 QTcB 468 QTcF 460 Interpretive Statements SINUS RHYTHM MARKED LEFT AXIS DEVIATION [QRS AXIS <-30] RIGHT BUNDLE BRANCH BLOCK [120+ MS QRS DURATION, UPRIGHT V1, 40+ MS S IN I/aVL/V4/V5/V6] VOLTAGE CRITERIA FOR LVH [MEETS CRITERIA IN ONE OF R(aVL), S(V1), S(VD), R(V5), R(V5/V6)+S(V1)] SIGNIFICANT BASELINE ARTIFACT ABNORMAL ECG SEE SCANNED COPY FOR SIGNATURE MTDD
[2023-11-05 14:21] LABS: Basophils Absolute Auto 0.1 K/mm3 (0.0-0.1); Basophils Percent Auto 0.9 % (0.2-1.2); Eosinophils Absolute Auto 0.2 K/mm3 (0-0.3); Eosinophils Percent Auto 2.1 % (0-4.4); Hemoglobin 15.7 g/dL (14.0-18.0); Immature Granulocyte Absolute 0.07 K/mm3 (0.00-0.031); Immature Granulocyte Percent A 0.7 % (0-0.5); Lymphocytes Absolute Auto 2.39 K/mm3 (0.9-3.2); Lymphocytes Percent Auto 22.4 % (18.3-44.2); Mean Corpuscular HGB Conc 32.7 g/dl (32-36); Mean Corpuscular Hemoglobin 31.6 pg (26-34); Mean Corpuscular Volume 96.6 fl (80-100); Mean Platelet Volume 9.8 fl (7.4-10.4); Monocytes Absolute Auto 0.8 K/mm3 (0.1-0.6); Monocytes Percent Auto 7.3 % (2.6-8.5); Neutrophils Absolute Auto 7.1 K/mm3 (1.3-6.7); Neutrophils Percent Auto 66.6 % (45.5-73.1); Platelet Count Result 331 k/mm3 (150-375); Red Blood Count 4.97 M/mm3 (4.6-6.20); Red Cell Distribution Width 13.5 % (11.5-14.5); White Blood Count 10.7 K/mm3 (4.5-10.0)
[2023-11-05 14:22] LABS: Appearance Urine Clear (Clear); Bacteria Urine None Seen /hpf; Bilirubin Urine Negative (Negative); Blood Urine Negative (Negative); Color Urine Yellow (Yellow); Glucose Urine UA 3+ mg/dL (Negative); Ketones Urine Negative (Negative); Leukocyte Esterase Ur Negative LEU/UL (Negative); Nitrate Urine Negative (Negative); Non Pathogenic Casts 0-2; Protein Urine Trace mg/dL (Negative); Squamous Epithelial Cell Urine None Seen /hpf (Few); WBC Urine 0-5 /hpf (0-3)
[2023-11-05 14:24] LABS: Specific Grav Ur 1.035 (1.001-1.035)
[2023-11-05 14:25] LABS: Add Urine Microscopic? YES
[2023-11-05 14:28] LABS: Alanine Aminotransferase 22 U/L (6-50); Albumin Level 4.6 g/dL (3.5-5.1); Alkaline Phosphatase 137 U/L (38-126); Anion Gap 9 mmol/L (4-12); Aspartate Amino Transferase 34 U/L (17-59); Bilirubin,Total 1.1 mg/dL (0.2-1.3); Blood Urea Nitrogen 16 mg/dL (9-20); Carbon Dioxide 26 mmol/L (22-30); Chloride 104 mmol/L (98-107); Estimated CRCL calculation 61 ml/min; Estimated Glomerular Filt Rate 59; Glucose 103 mg/dL (65-110); INR 1.1; Lipase 53 U/L (23-300); Magnesium 2.3 mg/dL (1.6-2.3); Potassium 3.9 mmol/L (3.4-5.0); Prothrombin Time 14.8 Seconds (11.1-14.7); Sodium 139 mmol/L (137-145)
[2023-11-05 14:39] LABS: NT Pro B Type Natriuretic Pept 386 pg/mL (19.9-100); Troponin I 0.031 ng/mL (0.000-0.034)
[2023-11-05 14:42] LABS: D Dimer 0.45 ug/mL (<0.48)
[2023-11-05 16:21] LABS: Influenza A QL RT-PCR Negative (Negative); Influenza B QL RT-PCR Negative (Negative); RSV RNA, RT-PCR Negative (Negative); SARS-CoV-2 RNA PCR Negative (Negative)
[2023-11-05 17:40] LABS: Troponin I 0.026 ng/mL (0.000-0.034)
== END 2023-11-05 18:38 | disposition home or self-care (01) ==
PROVIDERS: Nurse Practitioner Family; Emergency Provider Emergency Medicine; PCP Family Medicine
DX: R06.02 Shortness of breath (principal); R10.9 Unspecified abdominal pain; Z20.822 Contact with and (suspected) exposure to COVID-19; I48.91 Unspecified atrial fibrillation; I48.92 Unspecified atrial flutter; I50.30 Unspecified diastolic (congestive) heart failure; I11.0 Hypertensive heart disease with heart failure; E78.5 Hyperlipidemia, unspecified; J44.9 Chronic obstructive pulmonary disease, unspecified; G47.33 Obstructive sleep apnea (adult) (pediatric); N40.0 Benign prostatic hyperplasia without lower urinary tract symptoms; N32.81 Overactive bladder; D64.9 Anemia, unspecified; D75.1 Secondary polycythemia; K21.9 Gastro-esophageal reflux disease without esophagitis; K51.90 Ulcerative colitis, unspecified, without complications; E66.01 Morbid (severe) obesity due to excess calories; Z68.42 Body mass index [BMI] 45.0-49.9, adult; Z86.711 Personal history of pulmonary embolism; Z87.442 Personal history of urinary calculi; Z98.42 Cataract extraction status, left eye; Z98.41 Cataract extraction status, right eye; Z90.79 Acquired absence of other genital organ(s); Z90.49 Acquired absence of other specified parts of digestive tract; Z79.82 Long term (current) use of aspirin
CPT/HCPCS: 36415; 71046; 74176; 80053; 81001; 83690; 83735; 83880; 84484; 85025; 85380; 85610; 85730; 87637; 93005; 99284

== ENCOUNTER 2023-11-14 11:59 | Outpatient (CLI) | payer MEDICARE, SELFPAY ==
--- NOTE | 2023-11-14 14:00 | NEURO_ITS ---
Impression: # Complains of difficulties in walking. # No recognizable responses obtained on motor or sensory nerve stimulation. # Needle/EMG exam has no fibs, fasciculations or myotonia but minimal motor unit potentials. # Clinical correlation recommended; Findings compatible with severe neuropathy. Nerve Conduction Studies Anti Sensory Summary Table Stim Site NR Peak (ms) P-T Amp (?V) Site1 Site2 Delta-P (ms) Dist (cm) Gary (m/s) Left Sup Fibular Anti Sensory (Ant Lat Mall) DISPERSED RESPONSE 14 cm NR 14 cm Ant Lat Mall 16.0 Right Sup Fibular Anti Sensory (Ant Lat Mall) NO RESPONSE 14 cm NR 14 cm Ant Lat Mall 16.0 Left Sural Anti Sensory (Lat Mall) NO RESPONSE Calf NR Calf Lat Mall 16.0 Right Sural Anti Sensory (Lat Mall) NO RESPONSE Calf NR Calf Lat Mall 16.0 Motor Summary Table Stim Site NR Onset (ms) O-P Amp (mV) Site1 Site2 Delta-0 (ms) Dist (cm) Gary (m/s) Left Peroneal Motor (Vastus Med) NO RESPONSE Ankle NR Popit Ankle 0.0 Popit NR Right Peroneal Motor (Vastus Med) MINIMAL RESPOSE Ankle NR Popit Ankle 0.0 Popit NR Left Tibial Motor (Abd Andrade Brev) NO RESPONSE Ankle NR Knee NR Right Tibial Motor (Abd Andrade Brev) NO RESPONSE Ankle NR Knee Ankle 0.0 Knee NR F Wave Studies NR F-Lat (ms) L-R F-Lat (ms) Left Peroneal (Mrkrs) (EDB) NO RESPONSE NR Right Peroneal (Mrkrs) (EDB) NO RESPONSE NR Left Tibial (Mrkrs) (Abd Hallucis) NO RESPONSE NR Right Tibial (Mrkrs) (Abd Hallucis) NO RESPONSE NR EMG Side Muscle Nerve Root Ins Act Fibs Amp Dur Recrt Comment Right AntTibialis Dp Br Fibular L4-5 Nml Nml Decr >12ms +3 Right Gastroc Tibial S1-2 Nml Nml Decr >12ms +3 Right Fibularis Long Sup Br Fibular L5-S1 Nml Nml Decr >12ms +3 Right Flex Dig Long Tibial L5-S2 Nml Nml Decr >12ms +3 Right Ext Dig Brev Dp Br Fibular L5, S1 Nml Nml Decr >12ms +4 Left AntTibialis Dp Br Fibular L4-5 Nml Nml Decr >12ms +3 Left Gastroc Tibial S1-2 Nml Nml Decr >12ms +3 Left Fibularis Long Sup Br Fibular L5-S1 Nml Nml Decr >12ms +3 Left Flex Dig Long Tibial L5-S2 Nml Nml Decr >12ms +3 Left Ext Dig Brev Dp Br Fibular L5, S1 Nml Nml Decr >12ms +4 MTDD
== END 2023-11-14 12:00 | disposition home or self-care (01) ==
PROVIDERS: PCP Family Medicine; Visit Provider Internal Medicine Critical Care Medicine
DX: G62.9 Polyneuropathy, unspecified (principal)
CPT/HCPCS: 95886; 95910

== ENCOUNTER 2023-12-21 09:49 | Inpatient (IN) | payer MEDICARE, SELFPAY ==
[2023-12-21] VITALS (32 sets, daily range): BP systolic 91–189; BP diastolic 47–126; PULSE 71–141; RESP 14–28; TEMP 36.3–36.7; O2SAT 92–98; BMI 43.7
--- NOTE | ~2023-12-21 | XR_ITS ---
EXAMINATION: XR chest 1V portable DATE: 12/21/2023 10:23 INDICATION: Shortness of breath. TECHNIQUE: A single frontal view of the chest was obtained. COMPARISON: Chest 2 views 11/05/2023, CT abdomen and pelvis 11/05/2023 FINDINGS: Again seen is eventration anterior right hemidiaphragm. There is a chronic interstitial pat tern in the lungs with a peripheral predominance. No pleural effusion or pneumothorax. The heart size is normal. IMPRESSION: 1. Chronic interstitial lung disease. 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 Reviewed, dictated and finalized at location A.
--- NOTE | 2023-12-21 10:10 | ECG_ITS ---
SEE SCANNED COPY FOR CONFIRMED REPORT MTDD
[2023-12-21 10:19] LABS: Basophils Absolute Auto 0.1 K/mm3 (0.0-0.1); Basophils Percent Auto 1.3 % (0.2-1.2); Eosinophils Absolute Auto 0.3 K/mm3 (0-0.3); Eosinophils Percent Auto 2.7 % (0-4.4); Hematocrit 47.7 % (42.0-52.0); Hemoglobin 15.5 g/dL (14.0-18.0); Immature Granulocyte Absolute 0.03 K/mm3 (0.00-0.031); Immature Granulocyte Percent A 0.3 % (0-0.5); Lymphocytes Absolute Auto 2.47 K/mm3 (0.9-3.2); Mean Corpuscular HGB Conc 32.5 g/dl (32-36); Mean Corpuscular Hemoglobin 31.1 pg (26-34); Mean Corpuscular Volume 95.8 fl (80-100); Mean Platelet Volume 9.6 fl (7.4-10.4); Monocytes Absolute Auto 0.6 K/mm3 (0.1-0.6); Monocytes Percent Auto 6.6 % (2.6-8.5); Neutrophils Absolute Auto 5.7 K/mm3 (1.3-6.7); Neutrophils Percent Auto 62.1 % (45.5-73.1); Platelet Count Result 364 k/mm3 (150-375); Red Blood Count 4.98 M/mm3 (4.6-6.20); Red Cell Distribution Width 13.8 % (11.5-14.5); White Blood Count 9.1 K/mm3 (4.5-10.0)
[2023-12-21 10:35] LABS: INR 1.1; Prothrombin Time 14.2 Seconds (11.1-14.7)
[2023-12-21 10:40] LABS: Alanine Aminotransferase 20 U/L (6-50); Albumin Level 4.4 g/dL (3.5-5.1); Alkaline Phosphatase 141 U/L (38-126); Anion Gap 7 mmol/L (4-12); Aspartate Amino Transferase 25 U/L (17-59); Blood Urea Nitrogen 17 mg/dL (9-20); Calcium 9.9 mg/dL (8.4-10.2); Carbon Dioxide 28 mmol/L (22-30); Chloride 103 mmol/L (98-107); Estimated CRCL calculation 57 ml/min; Estimated Glomerular Filt Rate 53; Glucose 116 mg/dL (65-110); Potassium 4.1 mmol/L (3.4-5.0); Sodium 138 mmol/L (137-145)
[2023-12-21] MEDS: dilTIAZem HCl INJ 25 MG/5 ML VIAL 10 MG IV PUSH (10:41)
[2023-12-21 10:51] LABS: NT Pro B Type Natriuretic Pept 494 pg/mL (19.9-100); Troponin I < 0.012 ng/mL (0.000-0.034)
--- NOTE | 2023-12-21 10:55 | ECG_ITS ---
SEE SCANNED COPY FOR CONFIRMED REPORT MTDD
--- NOTE | 2023-12-21 11:31 | ED.SOB ---
HPI - SOB/Dyspnea General Chief Complaint: Shortness of Breath/Dyspnea Stated Complaint: shortness of breath Time Seen by Provider: 12/21/23 09:56 Source: patient Mode of arrival: wheelchair Limitations: no limitations History of Present Illness HPI Narrative: 77-year-old with a history of COPD, sleep apnea on CPAP, hypertension, morbid obesity, AFib here with a complaint of shortness of breath which is been ongoing for last several months. Patient states that he gets extremely short of breath in the midnight and he cannot breathe he is states that they recently changed his home oxygen concentrator and still feels that he is unable to get enough oxygen. Patient states that he laid on his bed for few hours and then gets extremely short winded and lays in his recliner with off fan on his face to get some extra air he presently denies any chest pain or fever or chills. He states he has been taking all his medication MD elicited complaint: shortness of breath Pertinent past history: COPD and congestive heart failure Onset (ago): month(s) Timing: constant Severity: moderate Exacerbating factors: lying flat Relieving factors: oxygen Known history of: COPD and congestive heart failure Associated symptoms: denies other symptoms Treatment prior to arrival: oxygen Related Data Home Medications Medication Instructions Recorded Confirmed multivitamin (Multiple Vitamins 1 tablet PO DAILY 05/30/19 11/22/23 tablet) cholecalciferol (vitamin D3) 100 4,000 unit PO DAILY 04/18/21 11/22/23 mcg (4,000 unit) capsule (Vitamin D3) sacubitril 49 mg-valsartan 51 mg 1 tablet PO BID 09/28/22 11/22/23 tablet (Entresto) fluticasone fur. 100 mcg-umeclid 1 inh inhalation DAILY 04/18/23 11/22/23 62.5 mcg-vilant 25 mcg inhalat.powder (Trelegy Ellipta) metoprolol tartrate 25 mg tablet 25 mg PO BID 04/18/23 11/22/23 lysine HCl 1,000 mg tablet 1,000 mg PO DAILY 10/01/23 11/22/23 ketorolac 10 mg tablet 10 mg PO Q6H 10/24/23 11/22/23 Allergies Allergy/AdvReac Type Severity Reaction Status Date / Time codeine AdvReac Mild CONSTIPATIO Verified 12/21/23 09:57 N methylprednisolone AdvReac Mild Vomiting Verified 12/21/23 09:57 prednisone AdvReac Unknown Vomiting Verified 12/21/23 09:57 Review of Systems Review of Systems: All systems reviewed & are unremarkable except as noted in HPI and below Constitutional: Constitutional: Reports no additional constitutional complaints Eyes: Eyes: Reports no additional eye complaints ENT: Reports system reviewed and no additional complaints, except as documented Cardiovascular: Cardiovascular: Reports no additional cardiovascular complaints Respiratory: Respiratory: Reports as per HPI Gastrointestinal: Gastrointestinal: Reports no additional gastrointestinal complaints Musculoskeletal: Musculoskeletal: Reports no additional musculoskeletal complaints Integumentary/Breasts: Skin/Breast: Reports system reviewed and no additional complaints, except as docu PMFSH Past Medical History Medical History Anxiety Ataxia Atrial fibrillation Diagnosed 01/2022 Atrial flutter Diagnosis 06/2022. Benign prostatic hyperplasia BMI greater than 40 Chronic anemia Chronic anticoagulation Chronic obstructive pulmonary disease Compression fx, thoracic spine Diabetes mellitus with chronic kidney disease Diastolic heart failure Gastroesophageal reflux disease Hyperlipidemia Hypertension Low serum vitamin D Lumbar spondylosis Obstructive sleep apnea treated with BiPAP Overactive bladder Pulmonary embolism (08/2018) Secondary erythrocytosis Related to COPD and obstructive sleep apnea. Previously received therapeutic phlebotomy. Tubulovillous adenoma of colon Ulcerative colitis Surgical History Surgical History H/O hemicolectomy History of bilateral cataract extraction History of cardiac catheter
--- NOTE | 2023-12-21 13:17 | ADMGEN ---
This patient, Danial Wilson, was admitted to IMU Room 200-01. Patient/family oriented to hospital policies and general routines including ID bracelet, bed and alarms, visiting hours, pain management, procedures, bathroom and other care routines, personal items, smoking policy, room service/diet, and visiting hours. Information on how to activate the Rapid Response Team has been discussed. Patient/Family are encouraged to report perceived risks to care and to ask questions if they do not understand what they are told or what they should do.
--- NOTE | 2023-12-21 15:11 | PM.IMHP ---
H&P: HPI History of Present Illness Date/Time: 12/21/23 15:11 Chief Complaint: SOB Narrative: 77 y/o M presents here with shortness of breath with PMH of Afib/Aflutter not on anticoagulation, BPH, COPD, chronic anemia, HF, chronic anemia, HLD, HTN, KIRSTEN on BiPAP, PE (2019), secondary erythrocytosis r/t COPD and KIRSTEN, and ulcerative colitis. Patient presents here from home for further evaluation of shortness of breath that has been ongoing for the past 4 months. Occurs at rest and with exertion, described as constant. Patient reports the shortness of breath has been regularly occurring in the middle of the night. States the longest he has been able to sleep is 2 hours before it wakes him. Reports semi-compliance with his home BiPAP. Will wear it for 2 hours until the SOB wakes him up and then will not wear it for the rest of the night. Patient tries to keep his HOB mildly elevated by sleeping with 2 pillows. Recently had home O2 concentrator changed but still feels he is not getting enough O2. No supplemental O2 during the day. Reports cough that is chronic but has worsened over the last few months and has been increasingly productive. No associated chest pain, palpations, congestion, fever, chills, or body aches. Reports worsening fatigue when he becomes short of breath. Reports no resolution in SOB with reduction in HR (arrived in the 140's and now rate controlled in the 70's). Initial VS at presentation: 98.1? F, HR 141, R 25, 142/85, and 96% on RA. ED workup showed: No leukocytosis, no anemia, INR 1.1, no significant electrolyte derangements, creatinine 1.3 and GFR 53, BNP 494. CXR shows chronic interstitial lung disease and chronic eventration of anterior right hemidiaphragm. Review of Systems Review of Systems: All systems reviewed & are unremarkable except as noted in HPI and below PMFSH Past Medical History Medical History Anxiety Ataxia Atrial fibrillation Diagnosed 01/2022 Atrial flutter Diagnosis 06/2022. Benign prostatic hyperplasia BMI greater than 40 Chronic anemia Chronic anticoagulation Chronic obstructive pulmonary disease Compression fx, thoracic spine Diabetes mellitus with chronic kidney disease Diastolic heart failure Gastroesophageal reflux disease Hyperlipidemia Hypertension Low serum vitamin D Lumbar spondylosis Obstructive sleep apnea treated with BiPAP Overactive bladder Pulmonary embolism (08/2018) Secondary erythrocytosis Related to COPD and obstructive sleep apnea. Previously received therapeutic phlebotomy. Tubulovillous adenoma of colon Ulcerative colitis Surgical History Surgical History H/O hemicolectomy History of bilateral cataract extraction History of cardiac catheterization History of cardioversion History of colonoscopy with polypectomy History of cystoscopy History of decompression of ulnar nerve Left elbow. History of dental surgery History of esophageal dilatation History of extraction of renal calculus History of prostatectomy History of right hemicolectomy (06/10/19) Benign tubulovillous adenoma. Hx of transurethral resection of prostate Family History Family History Father Hypertension Malignant neoplasm of prostate Sibling Diabetes mellitus Family history of cardiovascular disease Malignant neoplasm of prostate Hypertension Heart disease Mother Family history of rheumatic fever Heart disease Asthma Sibling Cancer Heart transplant recipient Other Family history of coronary artery disease Family history of lung cancer Social History Social History Social History: Surrogate decision maker: Akua Wilson, spouse. Code status: Full code. Smoking status: Never smoker Second hand tobacco smoke exposure: Yes Alc
--- NOTE | 2023-12-21 15:41 | PM.CNCAR ---
Assessment and Plan Assessment and plan (1) Atrial flutter: Qualifiers: Atrial flutter type: unspecified Qualified Code(s): I48.92 - Unspecified atrial flutter Code(s): I48.92 - Unspecified atrial flutter Status: Acute Plan This is a 77-year-old man with a history of paroxysmal atrial flutter also history of morbid obesity obstructive sleep apnea and appears to have a history of some pulmonary fibrosis as well. He enters the hospital with about a 2 month history of worsening dyspnea. He is in atrial flutter with moderate to rapid ventricular response and this could certainly be part of his worsening dyspnea or certainly a function of his underlying lung disease as well. I believe we should make an attempt at restoring sinus rhythm. He should be continued on apixaban which is a home medication that does not currently appear and hospital medication list. I will continue his Entresto, transition him from metoprolol to sotalol and continue his spironolactone for guideline directed marital therapy for his left ventricular dysfunction. If he maintains in atrial flutter we will plan on electrically cardioverting him to restore sinus rhythm again during this hospitalization. Obviously that will not take place until next Sunday since this is now the beginning of the 3 day holiday weekend. Heber Alvarado MD [facility] History of Present Illness History of Present Illness Consult date/time: 12/21/23 15:41 Reason For Visit: Shortness of Breath/Afib Narrative: This is a 77-year-old man that I am seeing today at the request of the hospitalist because of symptoms of dyspnea and atrial flutter. The patient had for several years been seen in our practice by my partner Dr. Pal. He has a history of atrial flutter for several years and her has previously been cardioverted electrically to sinus rhythm back in July of 2022. He has a history of morbid obesity chronic pulmonary fibrosis, obstructive sleep apnea as well as these arrhythmias he also has history of diastolic left ventricular dysfunction. He was most recently seen in our office in September of this year at which time he was stable and he was in sinus rhythm. Electrocardiogram that was done in this hospital the beginning of October showed him to be in sinus rhythm. He he entered the hospital now with about 2 months of progressively worsening shortness of breath with minimal activity and he has been found to be in atrial flutter with rapid ventricular response on presentation with right bundle branch block physiology. His right bundle branch block is a chronic finding. In this setting I am seeing him in consultation. He is not reporting any acute change in his health today he reports that this symptoms of worsening dyspnea have been coming on gradually for at least a couple of months. He is not reporting orthopnea or PND. He expresses frustration that despite his subjective feeling of shortness of breath he is being told that his oxygen saturation is normal. Review of Systems Constitutional: Constitutional: Reports lethargy Eyes: Eyes: Reports no additional eye complaints ENT: Reports system reviewed and no additional complaints, except as documented Cardiovascular: Cardiovascular: Reports no additional cardiovascular complaints Respiratory: Respiratory: Reports dyspnea on exertion Gastrointestinal: Gastrointestinal: Reports no additional gastrointestinal complaints Musculoskeletal: Musculoskeletal: Reports myalgias Integumentary/Breasts: Skin/Breast: Reports system reviewed and no additional complaints, except as docu Neurologic: Reports system reviewed and no additional complaints, except as documented Endocrine: Endocrine: Reports no additional endocrine complaints Hematologic/Lymphatic: Hematologic/Lymphatic: Reports no additional hematologic/lymphatic complaints Allergic/Immunologic: Allergic/Immunologic: Reports no additional allergic
[2023-12-21] MEDS: LEVALBUTEROL NEB 1.25 MG/3 ML INHALATION (16:14)
[2023-12-21 19:24] LABS: Troponin I 0.015 ng/mL (0.000-0.034)
[2023-12-21] MEDS: SOTALOL HCL 80 MG TABLET PO (20:25)
[2023-12-21] MEDS: APIXABAN 5 MG TABLET PO (20:26)
[2023-12-21] MEDS: SACUBITRIL/VALSARTAN 49-51 MG TABLET 1 TABLET PO (20:26)
[2023-12-21] MEDS: WATER FOR IRRIGATION, STERILE 1,000 ML BOTTLE 1000 ML (21:00)
--- NOTE | 2023-12-21 22:30 | ECG_ITS ---
SEE SCANNED COPY FOR CONFIRMED REPORT MTDD
[2023-12-21] MEDS: traZODone HCL 50 MG TABLET 100 MG PO (23:44)
[2023-12-21] MEDS: PRAMIPEXOLE 1 MG TABLET PO (23:44)
[2023-12-22] VITALS (22 sets, daily range): BP systolic 94–120; BP diastolic 52–60; PULSE 64–89; RESP 16–24; TEMP 36.2–37; O2SAT 95–100
[2023-12-22] MEDS: ONDANSETRON INJ 4 MG/2 ML VIAL IV PUSH (03:04)
[2023-12-22 04:44] LABS: Basophils Absolute Auto 0.1 K/mm3 (0.0-0.1); Basophils Percent Auto 1.2 % (0.2-1.2); Eosinophils Absolute Auto 0.3 K/mm3 (0-0.3); Eosinophils Percent Auto 3.8 % (0-4.4); Hematocrit 43.6 % (42.0-52.0); Hemoglobin 14.1 g/dL (14.0-18.0); Immature Granulocyte Absolute 0.04 K/mm3 (0.00-0.031); Immature Granulocyte Percent A 0.5 % (0-0.5); Lymphocytes Absolute Auto 1.54 K/mm3 (0.9-3.2); Mean Corpuscular HGB Conc 32.3 g/dl (32-36); Mean Corpuscular Hemoglobin 31.3 pg (26-34); Mean Corpuscular Volume 96.9 fl (80-100); Monocytes Absolute Auto 0.5 K/mm3 (0.1-0.6); Monocytes Percent Auto 6.7 % (2.6-8.5); Neutrophils Absolute Auto 5.6 K/mm3 (1.3-6.7); Neutrophils Percent Auto 68.8 % (45.5-73.1); Platelet Count Result 299 k/mm3 (150-375); White Blood Count 8.1 K/mm3 (4.5-10.0)
[2023-12-22 04:54] LABS: Alanine Aminotransferase 18 U/L (6-50); Albumin Level 3.7 g/dL (3.5-5.1); Alkaline Phosphatase 117 U/L (38-126); Anion Gap 8 mmol/L (4-12); Aspartate Amino Transferase 24 U/L (17-59); Bilirubin,Total 0.8 mg/dL (0.2-1.3); Blood Urea Nitrogen 15 mg/dL (9-20); Calcium 9.1 mg/dL (8.4-10.2); Carbon Dioxide 22 mmol/L (22-30); Chloride 105 mmol/L (98-107); Estimated CRCL calculation 65 ml/min; Estimated Glomerular Filt Rate > 60; Glucose 106 mg/dL (65-110); Potassium 3.8 mmol/L (3.4-5.0); Sodium 135 mmol/L (137-145)
[2023-12-22 05:28] LABS: Thyroid Stimulating Hormone Reflex 0.701 uIU/mL (0.465-4.68)
[2023-12-22] MEDS: FLUTICASONE/UMECLIDIN/VILANTER 100-62.5-25 MCG ELLIPTA 1 PUFF INHALATION (08:12)
[2023-12-22] MEDS: LEVALBUTEROL NEB 1.25 MG/3 ML INHALATION ×3 (08:12→20:41)
[2023-12-22] MEDS: PANTOPRAZOLE 40 MG TABLET PO (09:14)
[2023-12-22] MEDS: SACUBITRIL/VALSARTAN 49-51 MG TABLET 1 TABLET PO ×2 (09:14→20:28)
[2023-12-22] MEDS: SOTALOL HCL 80 MG TABLET PO ×2 (09:14→20:28)
[2023-12-22] MEDS: FERROUS SULFATE 325 MG TABLET DR PO (09:14)
[2023-12-22] MEDS: MULTIVITAMINS THERAPEUTIC TAB (*BKC) 1 TABLET PO (09:14)
[2023-12-22] MEDS: POTASSIUM CHLORIDE 20 MEQ ER TABLET PO (09:14)
[2023-12-22] MEDS: CHOLECALCIFEROL 1,000 UNITS TABLET 4000 UNITS PO (09:14)
[2023-12-22] MEDS: APIXABAN 5 MG TABLET PO ×2 (09:15→20:28)
[2023-12-22] MEDS: ASPIRIN 81 MG CHEWABLE TABLET PO (09:15)
--- NOTE | 2023-12-22 09:41 | PM.PNCARD ---
Progress Note: A&P Assessment and Plan (1) Atrial flutter: Qualifiers: Atrial flutter type: unspecified Qualified Code(s): I48.92 - Unspecified atrial flutter Code(s): I48.92 - Unspecified atrial flutter Status: Acute Plan This is a 77-year-old man with recurrence of atrial flutter not entirely clear to me that this is creating a shortness of breath since he is morbidly obese and also has underlying pulmonary disease. In any event an attempt at restoring sinus rhythm electrically again is underway since as recently as 1 month ago he was in sinus rhythm. We will continue sotalol treatment and anticipate electrical cardioversion on Sunday after the holiday weekend. Heber Alvarado MD [facility] Subjective Date/time seen: Date of service: 12/22/23 09:41 Interval history: Follow-up visit in this 77-year-old man with: Paroxysmal atrial flutter also with morbid obesity sleep apnea and apparent history of some pulmonary fibrosis. Patient was admitted to the hospital with increasing shortness of breath and noted to be back in atrial flutter. Another attempt at restoring sinus rhythm has been recommended. He has been transitioned from metoprolol to sotalol. He feels essentially well this morning still reports shortness of breath with modest activity. Reiterated plans to perform another electrical cardioversion next week if he persists in a flutter. Exam Const: General: comfortable and no acute distress Other: Pleasant obese man sitting in the bedside chair watching television only complaint today is constipation HENMT: Mouth: Yes moist mucous membranes Eyes: Sclera: sclerae normal Neck: Neck: supple Resp: Effort & Inspection: normal respiratory effort Other: Breath sounds are remarkable for mild bibasilar rales. No wheezing no rhonchi Cardio: Rate: regular rate Rhythm: abnormal rhythm irregularly irregular GI: GI Palp: Yes Soft to palpation Skin: General skin exam: normal color Neuro: Other: Alert and oriented x3 Objective Data Vital Signs Vital Signs: Vital Signs - 24 hr 12/21/23 09:54 12/21/23 10:36 12/21/23 10:05 Temperature 36.7 C Pulse Rate 141 H 123 H Respiratory Rate 25 H 17 Blood Pressure 142/85 H Pulse Oximetry 96 98 Oxygen Delivery Room Air Room Air Fraction of Inspired Oxygen 12/21/23 11:17 12/21/23 11:29 12/21/23 09:54 Temperature Pulse Rate 82 92 141 H Respiratory Rate 20 20 27 H Blood Pressure 139/52 L Pulse Oximetry 96 98 Oxygen Delivery Fraction of Inspired Oxygen 12/21/23 09:57 12/21/23 10:00 12/21/23 10:16 Temperature Pulse Rate 139 H 140 H 141 H Respiratory Rate 25 H 23 H 15 Blood Pressure 142/85 H Pulse Oximetry 95 92 Oxygen Delivery Fraction of Inspired Oxygen 12/21/23 10:17 12/21/23 10:30 12/21/23 10:31 Temperature Pulse Rate 139 H 129 H 113 H Respiratory Rate 24 H 17 23 H Blood Pressure 128/72 142/113 H Pulse Oximetry 97 96 95 Oxygen Delivery Fraction of Inspired Oxygen 12/21/23 10:39 12/21/23 10:40 12/21/23 10:43 Temperature Pulse Rate 139 H 112 H 139 H Respiratory Rate 21 H 23 H 23 H Blood Pressure 189/126 H Pulse Oximetry 96 95 95 Oxygen Delivery Fraction of Inspired Oxygen 12/21/23 10:45 12/21/23 10:46 12/21/23 11:05 Temperature Pulse Rate 114 H 128 H 98 Respiratory Rate 20 24 H 26 H Blood Pressure Pulse Oximetry 97 95 Oxygen Delivery Fraction of Inspired Oxygen 12/21/23 12:14 12/21/23 12:15 12/21/23 12:37 Temperature Pulse Rate 81 84 114 H Respiratory Rate 15 15 14 Blood Pressure Pulse Oximetry 97 95 98 Oxygen Delivery Fraction of Inspired Oxygen 12/21/23 12:47 12/21/23 16:00 12/21/23 16:14 Temperature 36.4 C L Pulse Rate 87 99 Respiratory Rate 19 24 H Blood Pressure 91/77 L 133/47 L Pulse Oximetry 95 96 95 Oxygen Delivery Room Air Fraction of Inspired Oxygen 12/21/23
[2023-12-22] MEDS: FUROSEMIDE 40 MG TABLET PO (10:27)
[2023-12-22] MEDS: SPIRONOLACTONE 25 MG TABLET PO (10:27)
[2023-12-22] MEDS: polyethylene glycoL 3350 17 GM POWD.PACK PO (10:27)
--- NOTE | 2023-12-22 11:30 | ECG_ITS ---
SEE SCANNED COPY FOR CONFIRMED REPORT MTDD
[2023-12-22] MEDS: PRAMIPEXOLE 1 MG TABLET PO (18:11)
--- NOTE | 2023-12-22 18:13 | PM.IMPN ---
Progress Note: A&P Assessment and Plan (1) Shortness of breath: Code(s): R06.02 - Shortness of breath Status: Acute Assessment and Plan: - CXR 1. Chronic interstitial lung disease. 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 - BNP 494 - EKG, initial: tachycardia (140), atrial flutter (140), non-specific ST changes and other (RBBB). - recommend contacting pulmonology for recommendations - DDx: COPD exacerbation, non-compliance with CPAP. Lower suspicion for SOB related to the Atrial Flutter, patient reporting no improvement with rate control (2) Atrial fibrillation and flutter: Code(s): I48.91 - Unspecified atrial fibrillation; I48.92 - Unspecified atrial flutter Status: Acute Assessment and Plan: - EKG, initial: tachycardia (140), atrial flutter (140), non-specific ST changes and other (RBBB). - EKG, repeat: normal rate (75), atrial flutter, no ST changes and RBBB. (post dilt 10 mg IVP) - home meds: metoprolol 25 mg BID - cardiology consulted, who switched around meds and started patient on sotalol - NED last done in 2022 Mild global hypokinesis, EF 45-50%. Mild left ventricular hypertrophy. Biatrial enlargement Right ventricular enlargement Spontaneous contrast in the left atrium. Moderate mitral and tricuspid regurgitation - CHADSVasc 6 (age, HTN hx, PE hx, DM hx) - patient started on anticoagulantion - add TSH - telemetry monitoring - consider cardioversion on Sunday (3) Obstructive sleep apnea treated with BiPAP: Code(s): G47.33 - Obstructive sleep apnea (adult) (pediatric) Status: Acute Assessment and Plan: - patient reports partial compliance with BiPAP, will only wear it for approximately 2 hours each night. - continue home BiPAP (4) Stage 3a chronic kidney disease: Code(s): N18.31 - Chronic kidney disease, stage 3a Status: Acute Assessment and Plan: - creatinine slowly improving 1.3 -> 1.1 - trend renal functions - trend electrolytes, correct as needed (5) Essential (primary) hypertension: Code(s): I10 - Essential (primary) hypertension Status: Acute Assessment and Plan: - chronic, currently 91/77 - continue home medications - monitor Plan Patient here with shortness of breath. Initial EKG showing atrial flutter with rate in the 140s. Given 10 diltiazem IVP, now rate controlled but remains in atrial flutter. Cardiology consulted. BNP normal for age. Diet: Heart healthy GI Prophylaxis: Not currently indicated DVT Prophylaxis: Lovenox Lines: Peripheral Code Status: DNR ? Patient seen and examined at bedside during my morning rounds ? Collaborated with patient's nurse at the bedside in detail and addressed all concerns ? Labs, electrolytes, radiology, investigations and test results reviewed ? Consult/Nursing/Ancilliary notes on the chart reviewed and appreciated ? Spoke with patient/family at the bedside and answered all the questions that they had Repeat labs in a.m. Electrolyte replacement as per protocol. Patient will be monitored very closely on the floor. Further recommendations as per the hospital course. Time Spent With Patient Time with patient: 15 - 25 minutes Subjective Date/time seen: 12/22/23 18:13 Interval history: Patient seen and evaluated at bedside. Heart rate is controlled on meds. Tolerating sotalol. Review of Systems Review of Systems: 14 systems were reviewed with pertinent positives and negatives per HPI. Except as documented in the HPI/progress notes, all other systems were reviewed and are negative. All systems reviewed & are unremarkable except as noted in HPI and below Exam Narrative: lungs clear, 1+ edema in BLE without asymmetry. obese. abdomen soft. Const: General: comfortable and no acute distress Other: , male, obese, nontoxic appearance HENMT: Face/Nose/Sinus: Normal nares present Mouth: Yes m
[2023-12-22] MEDS: ROSUVASTATIN 20 MG TABLET PO (20:28)
[2023-12-22] MEDS: traZODone HCL 50 MG TABLET 100 MG PO (20:30)
--- NOTE | 2023-12-22 22:30 | ECG_ITS ---
SEE SCANNED COPY FOR CONFIRMED REPORT MTDD
[2023-12-23] VITALS (28 sets, daily range): BP systolic 92–139; BP diastolic 40–72; PULSE 0–94; RESP 16–26; TEMP 36.2–37.3; O2SAT 93–99
[2023-12-23 04:30] LABS: Basophils Absolute Auto 0.1 K/mm3 (0.0-0.1); Eosinophils Absolute Auto 0.4 K/mm3 (0-0.3); Eosinophils Percent Auto 4.1 % (0-4.4); Hematocrit 50.4 % (42.0-52.0); Immature Granulocyte Absolute 0.03 K/mm3 (0.00-0.031); Immature Granulocyte Percent A 0.3 % (0-0.5); Lymphocytes Absolute Auto 2.35 K/mm3 (0.9-3.2); Lymphocytes Percent Auto 26.6 % (18.3-44.2); Mean Corpuscular HGB Conc 31.7 g/dl (32-36); Mean Corpuscular Hemoglobin 31.1 pg (26-34); Mean Corpuscular Volume 97.9 fl (80-100); Mean Platelet Volume 9.8 fl (7.4-10.4); Monocytes Absolute Auto 0.5 K/mm3 (0.1-0.6); Monocytes Percent Auto 5.7 % (2.6-8.5); Neutrophils Absolute Auto 5.5 K/mm3 (1.3-6.7); Neutrophils Percent Auto 62.3 % (45.5-73.1); Platelet Count Result 294 k/mm3 (150-375); Red Blood Count 5.15 M/mm3 (4.6-6.20); White Blood Count 8.8 K/mm3 (4.5-10.0)
[2023-12-23 04:46] LABS: Anion Gap 10 mmol/L (4-12); Blood Urea Nitrogen 19 mg/dL (9-20); Calcium 9.6 mg/dL (8.4-10.2); Carbon Dioxide 23 mmol/L (22-30); Chloride 104 mmol/L (98-107); Estimated CRCL calculation 55 ml/min; Estimated Glomerular Filt Rate 53; Glucose 98 mg/dL (65-110); Magnesium 2.4 mg/dL (1.6-2.3); Phosphorus 4.1 mg/dL (2.5-4.5); Potassium 4.1 mmol/L (3.4-5.0); Sodium 137 mmol/L (137-145)
[2023-12-23] MEDS: FLUTICASONE/UMECLIDIN/VILANTER 100-62.5-25 MCG ELLIPTA 1 PUFF INHALATION (07:30)
[2023-12-23] MEDS: LEVALBUTEROL NEB 1.25 MG/3 ML INHALATION ×2 (07:30→14:16)
[2023-12-23] MEDS: SACUBITRIL/VALSARTAN 49-51 MG TABLET 1 TABLET PO (08:56)
[2023-12-23] MEDS: SOTALOL HCL 80 MG TABLET PO ×2 (08:56→21:56)
[2023-12-23] MEDS: SPIRONOLACTONE 25 MG TABLET PO (08:56)
[2023-12-23] MEDS: FUROSEMIDE 40 MG TABLET PO (08:57)
[2023-12-23] MEDS: FERROUS SULFATE 325 MG TABLET DR PO (08:57)
[2023-12-23] MEDS: MULTIVITAMINS THERAPEUTIC TAB (*BKC) 1 TABLET PO (08:57)
[2023-12-23] MEDS: POTASSIUM CHLORIDE 20 MEQ ER TABLET PO (08:57)
[2023-12-23] MEDS: PANTOPRAZOLE 40 MG TABLET PO (08:57)
[2023-12-23] MEDS: APIXABAN 5 MG TABLET PO ×2 (08:57→20:28)
[2023-12-23] MEDS: ASPIRIN 81 MG CHEWABLE TABLET PO (08:57)
[2023-12-23] MEDS: CHOLECALCIFEROL 1,000 UNITS TABLET 4000 UNITS PO (08:57)
--- NOTE | 2023-12-23 10:04 | PM.PNCARD ---
Progress Note: A&P Assessment and Plan (1) Atrial fibrillation and flutter: Code(s): I48.91 - Unspecified atrial fibrillation; I48.92 - Unspecified atrial flutter Status: Acute Plan 77-year-old man with recurrent symptomatic, persistent atrial flutter. He is being treated now with sotalol in place of metoprolol and assuming atrial flutter persists we will anticipate DC cardioversion on Sunday Heber Alvarado MD [facility] Subjective Date/time seen: Date of service: 12/23/23 10:04 Interval history: Follow-up visit in this 77-year-old man with: Paroxysmal atrial flutter also with morbid obesity sleep apnea and apparent history of some pulmonary fibrosis. Patient was admitted to the hospital with increasing shortness of breath and noted to be back in atrial flutter. Another attempt at restoring sinus rhythm has been recommended. He has been transitioned from metoprolol to sotalol. He feels essentially well this morning still reports shortness of breath with modest activity. Reiterated plans to perform another electrical cardioversion next week if he persists in a flutter. 12/23/2023: Patient resting comfortably in bed watching television has no complaints. Continues in atrial flutter with heart rate in 60s Exam Const: General: comfortable and no acute distress Other: Pleasant obese man sitting in the bedside chair watching television only complaint today is constipation HENMT: Mouth: Yes moist mucous membranes Eyes: Sclera: sclerae normal Pupils: Equal, round and reactive pupils present Neck: Neck: supple Other: Difficult to comment on JVD given his obesity, carotid pulses are intact Resp: Effort & Inspection: normal respiratory effort Other: Breath sounds are remarkable for mild bibasilar rales. No wheezing no rhonchi Cardio: Rate: regular rate and tachycardic Rhythm: abnormal rhythm irregularly irregular Other: PMI is difficult to palpate soft systolic murmur audible at the left sternal border GI: Auscultation: normal bowel sounds Skin: General skin exam: normal color Neuro: Cranial nerves: Yes Equal, round and reactive pupils present Other: Alert and oriented x3 Extrem: Other: Mild chronic appearing edema adequate perfusion Objective Data Vital Signs Vital Signs: Vital Signs - 24 hr 12/22/23 11:33 12/22/23 12:00 12/22/23 12:00 Temperature 36.5 C Pulse Rate 66 87 Respiratory Rate 18 Blood Pressure 101/58 L Pulse Oximetry 95 Oxygen Delivery Room Air Oxygen Flow Rate 12/22/23 15:09 12/22/23 15:20 12/22/23 14:00 Temperature Pulse Rate 81 82 64 Respiratory Rate 20 20 Blood Pressure Pulse Oximetry Oxygen Delivery Oxygen Flow Rate 12/22/23 16:00 12/22/23 16:00 12/22/23 16:00 Temperature 36.2 C L Pulse Rate 66 66 Respiratory Rate 16 Blood Pressure 112/57 L Pulse Oximetry 95 Oxygen Delivery Room Air Oxygen Flow Rate 12/22/23 18:00 12/22/23 19:52 12/22/23 20:28 Temperature 37.0 C Pulse Rate 76 80 80 Respiratory Rate 18 Blood Pressure 96/54 L Pulse Oximetry 97 Oxygen Delivery Oxygen Flow Rate 12/22/23 20:41 12/22/23 20:00 12/22/23 23:49 Temperature 36.4 C Pulse Rate 89 76 Respiratory Rate 18 20 Blood Pressure 106/54 L Pulse Oximetry 98 Oxygen Delivery Room Air Oxygen Flow Rate 12/23/23 00:38 12/23/23 00:00 12/22/23 22:00 Temperature Pulse Rate 71 79 Respiratory Rate 23 H Blood Pressure Pulse Oximetry 98 98 Oxygen Delivery Autopap CPAP Oxygen Flow Rate 2 12/23/23 00:00 12/22/23 20:00 12/23/23 02:00 Temperature Pulse Rate 0 L 85 64 Respiratory Rate Blood Pressure Pulse Oximetry Oxygen Delivery Oxygen Flow Rate 12/23/23 03:20 12/23/23 04:00 12/23/23 04:43 Temperature 36.4 C Pulse Rate 83 64 Respiratory Rate 24 H 19 Blood Pressure 128/57 L Pulse Oximetry 98 98 97 Oxygen Delivery CP
--- NOTE | 2023-12-23 11:00 | ECG_ITS ---
SEE SCANNED COPY FOR CONFIRMED REPORT MTDD
--- NOTE | 2023-12-23 17:46 | PM.IMPN ---
Progress Note: A&P Assessment and Plan (1) Shortness of breath: Code(s): R06.02 - Shortness of breath Status: Acute Assessment and Plan: - CXR 1. Chronic interstitial lung disease. 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 - BNP 494 - EKG, initial: tachycardia (140), atrial flutter (140), non-specific ST changes and other (RBBB). - recommend contacting pulmonology for recommendations - DDx: COPD exacerbation, non-compliance with CPAP. Lower suspicion for SOB related to the Atrial Flutter, patient reporting no improvement with rate control (2) Atrial fibrillation and flutter: Code(s): I48.91 - Unspecified atrial fibrillation; I48.92 - Unspecified atrial flutter Status: Acute Assessment and Plan: - EKG, initial: tachycardia (140), atrial flutter (140), non-specific ST changes and other (RBBB). - EKG, repeat: normal rate (75), atrial flutter, no ST changes and RBBB. (post dilt 10 mg IVP) - home meds: metoprolol 25 mg BID - cardiology consulted, who switched around meds and started patient on sotalol - NED last done in 2022 Mild global hypokinesis, EF 45-50%. Mild left ventricular hypertrophy. Biatrial enlargement Right ventricular enlargement Spontaneous contrast in the left atrium. Moderate mitral and tricuspid regurgitation - CHADSVasc 6 (age, HTN hx, PE hx, DM hx) - patient started on anticoagulantion - add TSH - telemetry monitoring - cardiology following for cardioversion on Sunday (3) Obstructive sleep apnea treated with BiPAP: Code(s): G47.33 - Obstructive sleep apnea (adult) (pediatric) Status: Acute Assessment and Plan: - patient reports partial compliance with BiPAP, will only wear it for approximately 2 hours each night. - continue home BiPAP (4) Stage 3a chronic kidney disease: Code(s): N18.31 - Chronic kidney disease, stage 3a Status: Acute Assessment and Plan: - creatinine stable at 1.1 - 1.3 - trend renal functions - trend electrolytes, correct as needed (5) Essential (primary) hypertension: Code(s): I10 - Essential (primary) hypertension Status: Acute Assessment and Plan: - chronic, currently - continue home medications - monitor Plan Patient here with shortness of breath. Initial EKG showing atrial flutter with rate in the 140s. Given 10 diltiazem IVP, now rate controlled but remains in atrial flutter. Cardiology consulted. BNP normal for age. Diet: Heart healthy GI Prophylaxis: Not currently indicated DVT Prophylaxis: Lovenox Lines: Peripheral Code Status: DNR ? Patient seen and examined at bedside during my morning rounds ? Collaborated with patient's nurse at the bedside in detail and addressed all concerns ? Labs, electrolytes, radiology, investigations and test results reviewed ? Consult/Nursing/Ancilliary notes on the chart reviewed and appreciated ? Spoke with patient/family at the bedside and answered all the questions that they had Repeat labs in a.m. Electrolyte replacement as per protocol. Patient will be monitored very closely on the floor. Further recommendations as per the hospital course. Subjective Date/time seen: 12/23/23 17:46 Interval history: Patient sitting at chair on the bedside. Heart rate is under control. No chest pain. Review of Systems Review of Systems: 14 systems were reviewed with pertinent positives and negatives per HPI. Except as documented in the HPI/progress notes, all other systems were reviewed and are negative. All systems reviewed & are unremarkable except as noted in HPI and below Exam Narrative: PHYSICAL EXAMINATION: Vital signs: Please see the chart General physical exam: Morbidly obese gentleman, pleasant and cooperative exam, appears to be tired and fatigue Head/eyes: Atraumatic, EOMI, PERRLA ENT: Moist mucous membranes, nasal passages clear Neck: Supple, full range of motion, trachea m
[2023-12-23] MEDS: PRAMIPEXOLE 1 MG TABLET PO (17:57)
[2023-12-23] MEDS: ROSUVASTATIN 20 MG TABLET PO (20:28)
[2023-12-23] MEDS: traZODone HCL 50 MG TABLET 100 MG PO (23:59)
[2023-12-24] VITALS (24 sets, daily range): BP systolic 91–131; BP diastolic 52–65; PULSE 63–88; RESP 16–24; TEMP 36.2–37.2; O2SAT 93–98
--- NOTE | 2023-12-24 | ECG_ITS ---
SEE SCANNED COPY FOR CONFIRMED REPORT MTDD
[2023-12-24 04:26] LABS: Basophils Absolute Auto 0.1 K/mm3 (0.0-0.1); Basophils Percent Auto 1.1 % (0.2-1.2); Eosinophils Absolute Auto 0.4 K/mm3 (0-0.3); Eosinophils Percent Auto 4.2 % (0-4.4); Hemoglobin 14.3 g/dL (14.0-18.0); Immature Granulocyte Absolute 0.03 K/mm3 (0.00-0.031); Immature Granulocyte Percent A 0.4 % (0-0.5); Lymphocytes Absolute Auto 2.06 K/mm3 (0.9-3.2); Lymphocytes Percent Auto 24.6 % (18.3-44.2); Mean Corpuscular HGB Conc 31.8 g/dl (32-36); Mean Corpuscular Hemoglobin 30.6 pg (26-34); Mean Corpuscular Volume 96.4 fl (80-100); Mean Platelet Volume 9.7 fl (7.4-10.4); Monocytes Absolute Auto 0.6 K/mm3 (0.1-0.6); Monocytes Percent Auto 7.5 % (2.6-8.5); Neutrophils Absolute Auto 5.2 K/mm3 (1.3-6.7); Neutrophils Percent Auto 62.2 % (45.5-73.1); Platelet Count Result 334 k/mm3 (150-375); Red Blood Count 4.67 M/mm3 (4.6-6.20); Red Cell Distribution Width 13.9 % (11.5-14.5); White Blood Count 8.4 K/mm3 (4.5-10.0)
[2023-12-24 04:42] LABS: Anion Gap 4 mmol/L (4-12); Blood Urea Nitrogen 23 mg/dL (9-20); Calcium 9.4 mg/dL (8.4-10.2); Carbon Dioxide 26 mmol/L (22-30); Chloride 103 mmol/L (98-107); Estimated CRCL calculation 52 ml/min; Estimated Glomerular Filt Rate 49; Glucose 110 mg/dL (65-110); Potassium 3.5 mmol/L (3.4-5.0); Sodium 133 mmol/L (137-145)
--- NOTE | 2023-12-24 08:12 | PM.PNCARD ---
Progress Note: A&P Assessment and Plan (1) Atrial flutter: Qualifiers: Atrial flutter type: unspecified Qualified Code(s): I48.92 - Unspecified atrial flutter Code(s): I48.92 - Unspecified atrial flutter Status: Acute (2) Shortness of breath: Code(s): R06.02 - Shortness of breath Status: Acute Plan 77-year-old man with history of atrial flutter and some left ventricular systolic dysfunction. Plans are in place to attempt to restore sinus rhythm electrically tomorrow. For the moment I am going to put a hold on his Entresto so that there is less concern on the part of the staff on the floor in terms of giving him his medication and phone calls to me a couple of times today with questions as to whether to administer this medication or not. He needs needs to stay on sotalol and hopefully he will convert to sinus rhythm and sotalol will maintain rhythm after cardioversion. If he does revert back into atrial fibrillation I would probably tend to recommend accepting chronic AF and provide rate control with anticoagulation. Obviously the other strategy would be to consider EP consultation in an attempt at ablating this arrhythmia. There are clearly other reasons besides his rate controlled atrial flutter to explain his principal symptom of dyspnea. Heber Alvarado MD [facility] Subjective Date/time seen: Date of service: 12/24/23 08:12 Interval history: Follow-up visit in this 77-year-old man with: Atrial flutter with a recurrence associated with increasing shortness of breath, not entirely clear that his arrhythmia is the reason for his dyspnea. Metoprolol has been discontinued and he has been started on soda for this arrhythmia. He persists in rate controlled atrial flutter this morning and plans are for DC cardioversion tomorrow. Hemodynamically he is stable today. Principal complaints today are related to poor night sleep last night and uncomfortable bed Exam Const: General: comfortable and no acute distress Other: Pleasant obese man sitting in the bedside chair watching television only complaint today is constipation HENMT: Mouth: Yes moist mucous membranes Eyes: Sclera: sclerae normal Pupils: Equal, round and reactive pupils present Neck: Neck: supple Other: Difficult to comment on JVD given his obesity, carotid pulses are intact Resp: Effort & Inspection: normal respiratory effort Other: Breath sounds are remarkable for mild bibasilar rales. No wheezing no rhonchi Cardio: Rate: regular rate and tachycardic Rhythm: abnormal rhythm irregularly irregular Other: PMI is difficult to palpate soft systolic murmur audible at the left sternal border GI: Auscultation: normal bowel sounds Skin: General skin exam: normal color Neuro: Cranial nerves: Yes Equal, round and reactive pupils present Other: Alert and oriented x3 Extrem: Other: Mild chronic appearing edema adequate perfusion Objective Data Vital Signs Vital Signs: Vital Signs - 24 hr 12/23/23 08:56 12/23/23 10:00 12/23/23 11:46 Temperature 36.6 C Pulse Rate 69 68 91 Respiratory Rate 16 Blood Pressure 122/60 Pulse Oximetry 99 Oxygen Delivery 12/23/23 11:53 12/23/23 12:00 12/23/23 14:18 Temperature Pulse Rate 60 71 Respiratory Rate 20 Blood Pressure Pulse Oximetry Oxygen Delivery Room Air 12/23/23 14:18 12/23/23 14:00 12/23/23 14:23 Temperature Pulse Rate 75 67 Respiratory Rate 20 Blood Pressure Pulse Oximetry 98 Oxygen Delivery Room Air 12/23/23 15:48 12/23/23 16:00 12/23/23 16:00 Temperature 36.2 C L Pulse Rate 83 64 Respiratory Rate 20 Blood Pressure 139/72 Pulse Oximetry 99 Oxygen Delivery Room Air 12/23/23 18:00 12/23/23 19:49 12/23/23 20:45 Temperature 36.3 C L Pulse Rate 94 68 Respiratory Rate 20 Blood Pressure 92/40 L 100/50 L Pulse Oximetry 96 Oxygen Delivery
[2023-12-24] MEDS: FLUTICASONE/UMECLIDIN/VILANTER 100-62.5-25 MCG ELLIPTA 1 PUFF INHALATION (08:33)
[2023-12-24] MEDS: LEVALBUTEROL NEB 1.25 MG/3 ML INHALATION ×2 (08:37→14:18)
[2023-12-24] MEDS: CHOLECALCIFEROL 1,000 UNITS TABLET 4000 UNITS PO (08:38)
[2023-12-24] MEDS: ASPIRIN 81 MG CHEWABLE TABLET PO (08:39)
[2023-12-24] MEDS: SOTALOL HCL 80 MG TABLET PO ×2 (08:39→19:59)
[2023-12-24] MEDS: MULTIVITAMINS THERAPEUTIC TAB (*BKC) 1 TABLET PO (08:40)
[2023-12-24] MEDS: FUROSEMIDE 40 MG TABLET PO (08:40)
[2023-12-24] MEDS: SPIRONOLACTONE 25 MG TABLET PO (08:41)
[2023-12-24] MEDS: FERROUS SULFATE 325 MG TABLET DR PO (08:41)
[2023-12-24] MEDS: PANTOPRAZOLE 40 MG TABLET PO (08:41)
[2023-12-24] MEDS: APIXABAN 5 MG TABLET PO ×2 (08:41→19:59)
[2023-12-24] MEDS: POTASSIUM CHLORIDE 20 MEQ ER TABLET PO (08:42)
[2023-12-24] MEDS: PRAMIPEXOLE 1 MG TABLET PO (18:01)
--- NOTE | 2023-12-24 18:30 | PM.IMPN ---
Progress Note: A&P Assessment and Plan (1) Shortness of breath: Code(s): R06.02 - Shortness of breath Status: Acute Assessment and Plan: - CXR 1. Chronic interstitial lung disease. 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 - BNP 494 - EKG, initial: tachycardia (140), atrial flutter (140), non-specific ST changes and other (RBBB). - recommend contacting pulmonology for recommendations - DDx: COPD exacerbation, non-compliance with CPAP. Lower suspicion for SOB related to the Atrial Flutter, patient reporting no improvement with rate control (2) Atrial fibrillation and flutter: Code(s): I48.91 - Unspecified atrial fibrillation; I48.92 - Unspecified atrial flutter Status: Acute Assessment and Plan: - EKG, initial: tachycardia (140), atrial flutter (140), non-specific ST changes and other (RBBB). - EKG, repeat: normal rate (75), atrial flutter, no ST changes and RBBB. (post dilt 10 mg IVP) - home meds: metoprolol 25 mg BID - cardiology consulted, who switched around meds and started patient on sotalol - NED last done in 2022 Mild global hypokinesis, EF 45-50%. Mild left ventricular hypertrophy. Biatrial enlargement Right ventricular enlargement Spontaneous contrast in the left atrium. Moderate mitral and tricuspid regurgitation - CHADSVasc 6 (age, HTN hx, PE hx, DM hx) - patient started on anticoagulantion - add TSH - telemetry monitoring - cardiology following for cardioversion in am (3) Obstructive sleep apnea treated with BiPAP: Code(s): G47.33 - Obstructive sleep apnea (adult) (pediatric) Status: Acute Assessment and Plan: - patient reports partial compliance with BiPAP, will only wear it for approximately 2 hours each night. - continue home BiPAP - added melatonin as needed for insomnia (4) Stage 3a chronic kidney disease: Code(s): N18.31 - Chronic kidney disease, stage 3a Status: Acute Assessment and Plan: - creatinine mildly worsening from 1.1-1.4 - trend renal functions - may need adjustment in diuretics - trend electrolytes, correct as needed (5) Essential (primary) hypertension: Code(s): I10 - Essential (primary) hypertension Status: Acute Assessment and Plan: - chronic, currently 91/ - continue home medications - monitor Plan Patient here with shortness of breath. Initial EKG showing atrial flutter with rate in the 140s. Given 10 diltiazem IVP, now rate controlled but remains in atrial flutter. Cardiology consulted. BNP normal for age. Diet: Heart healthy GI Prophylaxis: Not currently indicated DVT Prophylaxis: Lovenox Lines: Peripheral Code Status: DNR ? Patient seen and examined at bedside during my morning rounds ? Collaborated with patient's nurse at the bedside in detail and addressed all concerns ? Labs, electrolytes, radiology, investigations and test results reviewed ? Consult/Nursing/Ancilliary notes on the chart reviewed and appreciated ? Spoke with patient/family at the bedside and answered all the questions that they had Repeat labs in a.m. Electrolyte replacement as per protocol. Patient will be monitored very closely on the floor. Further recommendations as per the hospital course. Time Spent With Patient Time with patient: 15 - 25 minutes Subjective Date/time seen: 12/24/23 18:30 Interval history: Patient lying in bed during my morning rounds. Awaiting cardioversion in a.m. Did not have a good night sleep last night. Review of Systems Review of Systems: 14 systems were reviewed with pertinent positives and negatives per HPI. Except as documented in the HPI/progress notes, all other systems were reviewed and are negative. All systems reviewed & are unremarkable except as noted in HPI and below Exam Narrative: PHYSICAL EXAMINATION: Vital signs: Please see the chart General physical exam: Morbidly obese gentleman, pleasant and coope
[2023-12-24] MEDS: ROSUVASTATIN 20 MG TABLET PO (19:59)
[2023-12-24] MEDS: traZODone HCL 50 MG TABLET 100 MG PO (21:12)
[2023-12-24] MEDS: MELATONIN 5 MG TABLET PO (21:13)
[2023-12-25] VITALS (19 sets, daily range): BP systolic 108–126; BP diastolic 52–69; PULSE 51–76; RESP 16–25; TEMP 36.2–37.2; O2SAT 96–100
[2023-12-25 04:48] LABS: Basophils Absolute Auto 0.1 K/mm3 (0.0-0.1); Basophils Percent Auto 1.1 % (0.2-1.2); Eosinophils Absolute Auto 0.3 K/mm3 (0-0.3); Eosinophils Percent Auto 3.4 % (0-4.4); Hematocrit 41.9 % (42.0-52.0); Hemoglobin 13.5 g/dL (14.0-18.0); Immature Granulocyte Absolute 0.03 K/mm3 (0.00-0.031); Immature Granulocyte Percent A 0.3 % (0-0.5); Lymphocytes Absolute Auto 2.12 K/mm3 (0.9-3.2); Lymphocytes Percent Auto 23.4 % (18.3-44.2); Mean Corpuscular HGB Conc 32.2 g/dl (32-36); Mean Corpuscular Volume 96.3 fl (80-100); Mean Platelet Volume 10.1 fl (7.4-10.4); Monocytes Absolute Auto 0.6 K/mm3 (0.1-0.6); Monocytes Percent Auto 6.8 % (2.6-8.5); Neutrophils Absolute Auto 5.9 K/mm3 (1.3-6.7); Platelet Count Result 302 k/mm3 (150-375); Red Blood Count 4.35 M/mm3 (4.6-6.20); Red Cell Distribution Width 13.8 % (11.5-14.5); White Blood Count 9.1 K/mm3 (4.5-10.0)
[2023-12-25 05:10] LABS: Anion Gap 5 mmol/L (4-12); Blood Urea Nitrogen 24 mg/dL (9-20); Calcium 9.2 mg/dL (8.4-10.2); Carbon Dioxide 27 mmol/L (22-30); Chloride 103 mmol/L (98-107); Estimated CRCL calculation 52 ml/min; Estimated Glomerular Filt Rate 49; Glucose 131 mg/dL (65-110); Potassium 3.5 mmol/L (3.4-5.0); Sodium 135 mmol/L (137-145)
[2023-12-25] MEDS: FLUTICASONE/UMECLIDIN/VILANTER 100-62.5-25 MCG ELLIPTA 1 PUFF INHALATION (07:33)
--- NOTE | 2023-12-25 08:23 | ECG_ITS ---
SEE SCANNED COPY FOR CONFIRMED REPORT MTDD
[2023-12-25] MEDS: CHOLECALCIFEROL 1,000 UNITS TABLET 4000 UNITS PO (08:38)
[2023-12-25] MEDS: SPIRONOLACTONE 25 MG TABLET PO (08:39)
[2023-12-25] MEDS: FERROUS SULFATE 325 MG TABLET DR PO (08:39)
[2023-12-25] MEDS: MULTIVITAMINS THERAPEUTIC TAB (*BKC) 1 TABLET PO (08:39)
[2023-12-25] MEDS: APIXABAN 5 MG TABLET PO (08:39)
[2023-12-25] MEDS: PANTOPRAZOLE 40 MG TABLET PO (08:39)
[2023-12-25] MEDS: ASPIRIN 81 MG CHEWABLE TABLET PO (08:39)
[2023-12-25] MEDS: SOTALOL HCL 80 MG TABLET PO (08:39)
[2023-12-25] MEDS: POTASSIUM CHLORIDE 20 MEQ ER TABLET PO (08:39)
[2023-12-25] MEDS: FUROSEMIDE 40 MG TABLET PO (08:39)
--- NOTE | 2023-12-25 09:39 | PM.PNCARD ---
Progress Note: A&P Assessment and Plan (1) Atrial fibrillation and flutter: Code(s): I48.91 - Unspecified atrial fibrillation; I48.92 - Unspecified atrial flutter Status: Acute Assessment and Plan: Plans for cardioversion today with Anesthesia team (given his morbid obesity, KRISTEN). Continue Sotalol 80mg BID. Continue Eliquis 5mg BID. 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 (4) Heart failure with mid-range ejection fraction: Code(s): I50.22 - Chronic systolic (congestive) heart failure Status: Acute Assessment and Plan: Stable. Continue Lasix 40mg BID, Spironolactone 25mg once daily. Entresto has been stopped due to concerns for low blood pressure with SBP in the 90s. 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 (6) Essential (primary) hypertension: Code(s): I10 - Essential (primary) hypertension Status: Acute Assessment and Plan: Continue Spironolactone, Lasix. (7) Morbid obesity with BMI of 40.0-44.9, adult: Code(s): E66.01 - Morbid (severe) obesity due to excess calories; Z68.41 - Body mass index [BMI] 40.0-44.9, adult Status: Acute Plan Recommendations and plan discussed with Hospitalist. Subjective Date/time seen: 12/25/23 09:39 Interval history: Reason for visit: Atrial fibrillation, atrial flutter HPI: This is a 77-year-old man that I am seeing today at the request of the hospitalist because of symptoms of dyspnea and atrial flutter.? The patient had for several years been seen in our practice by my partner Dr. Pal.? He has a history of atrial flutter for several years and her has previously been cardioverted electrically to sinus rhythm back in July of 2022.? He has a history of morbid obesity chronic pulmonary fibrosis, obstructive sleep apnea as well as these arrhythmias he also has history of diastolic left ventricular dysfunction.? He was most recently seen in our office in September of this year at which time he was stable and he was in sinus rhythm.? Electrocardiogram that was done in this hospital the beginning of October showed him to be in sinus rhythm.? He he entered the hospital now with about 2 months of progressively worsening shortness of breath with minimal activity and he has been found to be in atrial flutter with rapid ventricular response on presentation with right bundle branch block physiology.? His right bundle branch block is a chronic finding.? In this setting I am seeing him in consultation.? He is not reporting any acute change in his health today he reports that this symptoms of worsening dyspnea have been coming on gradually for at least a couple of months.? He is not reporting orthopnea or PND.? He expresses frustration that despite his subjective feeling of shortness of breath he is being told that his oxygen saturation is normal. Date of service 12/21: Paroxysmal atrial flutter also with morbid obesity sleep apnea and apparent history of some pulmonary fibrosis.? Patient was admitted to the hospital with increasing shortness of breath and noted to be back in atrial flutter.? Another attempt at restoring sinus rh
--- NOTE | 2023-12-25 10:25 | WPDCARDVER ---
Cardioversion Cardioversion Date of procedure: 12/25/23 Procedure: Synchronized electrical cardioversion Pre-op diagnosis: Symptomatic atrial fibrillation / atrial flutter Post-op diagnosis: Other (Successful cardioversion to sinus bradycardia) Indications: Symptomatic atrial fibrillation / atrial flutter Description of procedure: Written informed consent obtained. Defibrillator pads placed in an anteroposterior position. Patient's hemodynamics and respiratory status were monitoring throughout the procedure. Time out performed by Yanely Hill RN. Sedation administered by the Anesthesia team. Once patient was adequately sedated, synchronized electrical cardioversion was performed with 1 shock at 300 joules, which successfully restored sinus rhythm. No periprocedural complications. Sedation: Sedation administered by the Anesthesia team Findings: Successful synchronized electrical cardioversion to sinus rhythm with 1 shock at 300 joules. Conclusion: Successful synchronized electrical cardioversion to sinus rhythm with 1 shock at 300 joules.
--- NOTE | 2023-12-25 10:54 | ECG_ITS ---
SEE SCANNED COPY FOR CONFIRMED REPORT MTDD
--- NOTE | 2023-12-25 13:45 | PM.DS ---
DS: Admitting Diagnosis Discharge Date 12/25/2023: Admitting Diagnosis (1) Shortness of breath: ?Code(s): R06.02 - Shortness of breath ?Status:?Acute ?Assessment and Plan: - CXR 1. Chronic interstitial lung disease. 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 - BNP 494 - EKG, initial: tachycardia (140), atrial flutter (140), non-specific ST changes and other (RBBB). - recommend contacting pulmonology for recommendations - DDx: COPD exacerbation, non-compliance with CPAP. Lower suspicion for SOB related to the Atrial Flutter, patient reporting no improvement with rate control (2) Atrial fibrillation and flutter: ?Code(s): I48.91 - Unspecified atrial fibrillation; I48.92 - Unspecified atrial flutter ?Status:?Acute ?Assessment and Plan: - EKG, initial: tachycardia (140), atrial flutter (140), non-specific ST changes and other (RBBB). - EKG, repeat: normal rate (75), atrial flutter, no ST changes and RBBB. (post dilt 10 mg IVP) - home meds: metoprolol 25 mg BID - cardiology consulted, awaiting recs - NED last done in 2022 Mild global hypokinesis, EF 45-50%. Mild left ventricular hypertrophy. Biatrial enlargement Right ventricular enlargement Spontaneous contrast in the left atrium. Moderate mitral and tricuspid regurgitation - not on anticoagulation, CHADSVasc 6 (age, HTN hx, PE hx, DM hx) - add TSH - telemetry monitoring (3) Obstructive sleep apnea treated with BiPAP: ?Code(s): G47.33 - Obstructive sleep apnea (adult) (pediatric) ?Status:?Acute ?Assessment and Plan: - patient reports partial compliance with BiPAP, will only wear it for approximately 2 hours each night. - continue home BiPAP (4) Stage 3a chronic kidney disease: ?Code(s): N18.31 - Chronic kidney disease, stage 3a ?Status:?Acute ?Assessment and Plan: - creatinine 1.3 and GFR 53, near baseline - trend renal function - trend electrolytes, correct as needed (5) Essential (primary) hypertension: ?Code(s): I10 - Essential (primary) hypertension ?Status:?Acute ?Assessment and Plan: - chronic, currently - continue home medications - monitor DS: Discharge Diagnosis Discharge Diagnosis (1) Heart failure with mid-range ejection fraction: Code(s): I50.22 - Chronic systolic (congestive) heart failure Status: Acute (2) Shortness of breath: Code(s): R06.02 - Shortness of breath Status: Acute (3) Atrial fibrillation and flutter: Code(s): I48.91 - Unspecified atrial fibrillation; I48.92 - Unspecified atrial flutter Status: Acute (4) Other ulcerative colitis without complications: Code(s): K51.80 - Other ulcerative colitis without complications Status: Acute (5) Stage 3a chronic kidney disease: Code(s): N18.31 - Chronic kidney disease, stage 3a Status: Acute (6) Diabetes mellitus with chronic kidney disease: Qualifiers: Diabetes mellitus type: type 2 Diabetes mellitus longterm insulin use: without 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 Chronic kidney disease stage: stage 3 (moderate) Chronic kidney disease stage 3 subtype: stage 3a (GFR 45-59) Qualified Code(s): E11.22 - Type 2 diabetes mellitus with diabetic chronic kidney disease; N18.31 - Chronic kidney disease, stage 3a Code(s): E11.22 - Type 2 diabetes mellitus with diabetic chronic kidney disease Status: Acute (7) COPE (chronic obstructive pulmonary emphysema): Qualifiers: Emphysema type: unspecified Qualified Code(s): J43.9 - Emphysema, unspecified Code(s): J43.9 - Emphysema, unspecified Status: Acute (8) Essential (primary) hypertension: Code(s): I10 - Essential (primary) hypertension Status: Acute (9) Benign hypertension with chronic kidney disease: Code(s): I12.9 - Hypertensive chronic kidney disease with stage 1 through stage 4 chronic kidney disease, or unspecified chronic ki
--- NOTE | 2024-01-16 10:31 | WPDANESEPPF ---
Anes - Initial Pre Proc Eval Procedure: Operation Date: 12/25/23 13:00 Proposed Procedures p Electrical Cardioversion - Alexis Zendejas MD Date/Time: 01/16/24 10:31 Surgeon: Enoch Aquino MD Pre Op Diagnosis: Shortness of Breath/Afib Patient Data Age: 78 Gender: M Height: 1.73 m Weight: 133.1 kg Last Vital Signs Temp 37.2 C 12/25/23 11:22 Pulse 62 12/25/23 14:00 Resp 20 12/25/23 11:22 BP 114/56 L 12/25/23 11:22 Pulse Ox 97 12/25/23 11:22 O2 Del Method Room Air 12/25/23 12:00 O2 Flow Rate 2 12/25/23 10:30 FiO2 21 12/24/23 20:44 Allergies Allergy/AdvReac Type Severity Reaction Status Date / Time codeine AdvReac Mild CONSTIPATIO Verified 01/14/24 13:44 N methylprednisolone AdvReac Mild Vomiting Verified 01/14/24 13:44 prednisone AdvReac Unknown Vomiting Verified 01/14/24 13:44 Home Medications Medication Instructions Recorded Confirmed Type multivitamin (Multiple Vitamins 1 tablet PO DAILY 05/30/19 01/14/24 History tablet) ferrous sulfate 325 mg (65 mg 325 mg PO DAILY #60 tabs 12/16/19 01/14/24 Rx iron) tablet cholecalciferol (vitamin D3) 100 4,000 unit PO DAILY 04/18/21 01/14/24 History mcg (4,000 unit) capsule (Vitamin D3) furosemide 40 mg tablet 40 mg PO DAILY #30 tabs 04/20/23 01/14/24 Rx spironolactone 25 mg tablet 25 mg PO QAM #30 tabs 04/20/23 01/14/24 Rx potassium chloride 20 mEq 20 meq PO DAILY #90 tabs 06/19/23 01/14/24 Rx tablet,extended release(part/cryst) (Klor-Con M) omeprazole 20 mg capsule,delayed 20 mg PO DAILY #90 caps 08/23/23 01/14/24 Rx release balsalazide 750 mg capsule 2,250 mg PO BID #540 caps 09/27/23 01/14/24 Rx lysine HCl 1,000 mg tablet 1,000 mg PO DAILY 10/01/23 01/14/24 History pramipexole 1 mg tablet See Rx Instructions .Route 10/24/23 01/14/24 Rx .COMPLEX #180 tabs tamsulosin 0.4 mg capsule (Flomax) 0.4 mg PO QHS #30 caps 10/24/23 01/14/24 Rx trazodone 100 mg tablet See Rx Instructions .Route 10/24/23 01/14/24 Rx .COMPLEX PRN insomnia #180 tabs roflumilast 500 mcg tablet 500 mcg PO DAILY COPD 3 months #90 11/06/23 01/14/24 Rx tabs rosuvastatin 20 mg tablet 20 mg PO HS #90 tabs 11/06/23 01/14/24 Rx albuterol sulfate 2.5 mg/3 mL 2.5 mg (3 mL) inhalation Q4-6H PRN 11/20/23 01/14/24 Rx (0.083 %) solution for nebulization shortness of breath or wheezing #90 mL apixaban 5 mg tablet (Eliquis) 5 mg PO BID 12/21/23 01/14/24 History aspirin 81 mg tablet,delayed 81 mg PO DAILY 12/21/23 01/14/24 History release (Adult Low Dose Aspirin) cyclobenzaprine 10 mg PO TID PRN Pain 12/21/23 01/14/24 History sotalol 80 mg tablet 80 mg PO Q12HR #60 tabs 12/25/23 01/14/24 Rx pregabalin 75 mg capsule 75 mg PO TID #90 caps 01/01/24 01/14/24 Rx tramadol 50 mg tablet 50 mg PO BID pain #30 tabs 01/01/24 01/14/24 Rx albuterol sulfate 90 mcg/actuation 2 inh inhalation Q4H PRN shortness 01/10/24 01/14/24 Rx aerosol inhaler of breath or wheezing #8.5 grams Trelegy Ellipta 100 mcg-62.5 1 inh inhalation Q24H 1 month #60 01/14/24 01/14/24 Rx mcg-25 mcg powder for inhalation ea (fhlablclpwz-kliclcwnt-udawzdjy) Patient hx anesthesia problems: none Family hx anesthesia problems: none Results Review: All pre-operative results and documents have been reviewed as part of the pre-operative evaluation. [facility] Past Medical History Medical History (Updated 01/14/24 @ 14:30 by Raven Jones MD) Anxiety Ataxia Atrial fibrillation Diagnosed 01/2022 Atrial flutter Diagnosis 06/2022. Benign prostatic hyperplasia BMI greater than 40 Chronic anemia Chronic anticoagulation Chronic obstructive pulmonary disease Compression fx, thoracic spine Diabetes mellitus with chronic kidney disease Diastolic heart failure LAY (dyspnea on exertion) Gastroesophageal reflux disease Hyperlipidemia Hypertension Low serum vitamin D Lumbar spondylosis Obstructive sleep apnea Obstructive Sleep Apnea-Hypopnea Syndrome Overactive bladder
== END 2023-12-25 15:33 | disposition home or self-care (01) | DRG 309 ==
LOC: ANHED 11:42 → ANHIMU 12:46
PROVIDERS: Internal Medicine; Student in an Organized Health Care Education/Training Program; Admitting Provider Internal Medicine; Emergency Provider Family Medicine; PCP Family Medicine; Visit Provider Family Medicine
PROC: 5A2204Z Restoration of Cardiac Rhythm, Single (ICD-10-PCS; principal; 2023-12-25 13:00)
DX: I48.92 Unspecified atrial flutter (principal); I13.0 Hypertensive heart and chronic kidney disease with heart failure and stage 1 through stage 4 chronic kidney disease, or unspecified chronic kidney disease; Z68.41 Body mass index [BMI] 40.0-44.9, adult; J84.9 Interstitial pulmonary disease, unspecified; K51.90 Ulcerative colitis, unspecified, without complications; I50.22 Chronic systolic (congestive) heart failure; I48.20 Chronic atrial fibrillation, unspecified; N18.31 Chronic kidney disease, stage 3a; J43.9 Emphysema, unspecified; D75.1 Secondary polycythemia; E11.22 Type 2 diabetes mellitus with diabetic chronic kidney disease; E78.5 Hyperlipidemia, unspecified; E66.01 Morbid (severe) obesity due to excess calories; E83.119 Hemochromatosis, unspecified; E55.9 Vitamin D deficiency, unspecified; N32.81 Overactive bladder; N40.0 Benign prostatic hyperplasia without lower urinary tract symptoms; K59.09 Other constipation; K21.9 Gastro-esophageal reflux disease without esophagitis; M47.816 Spondylosis without myelopathy or radiculopathy, lumbar region; G25.81 Restless legs syndrome; G47.61 Periodic limb movement disorder; G47.33 Obstructive sleep apnea (adult) (pediatric); R27.0 Ataxia, unspecified; F41.9 Anxiety disorder, unspecified; Z86.711 Personal history of pulmonary embolism; Z86.010 Personal history of colon polyps; Z79.82 Long term (current) use of aspirin; Z79.01 Long term (current) use of anticoagulants
CPT/HCPCS: 36415; 71045; 80048; 80053; 83735; 83880; 84100; 84443; 84484; 85025; 85610; 92960; 93005; 94003; 94640; 96374; 96375; 99285; A9270; G0378; J0461; J2405; J2704; J7040

== ENCOUNTER 2024-01-22 12:28 | Outpatient (CLI) | payer MEDICARE, SELFPAY ==
--- NOTE | ~2024-01-22 | XR_ITS ---
XR abdomen/kub 1V Ordering provider: Ander Ko MD History: . N20.0 - Calculus of kidney F/U SURGERY SEPTEMBER 2023 . Comparison: October 05, 2023 FINDINGS: BOWEL: Nonobstructive bowel gas pattern. ORGANOMEGALY: None. SIGNIFICANT PATHOLOGIC CALCIFICATIONS: Tiny calcifications seen medially in the left renal area proje cted over the left last rib. OTHER: No free air is seen under the diaphragm. Pubic symphysitis. Mild osteoarthritic changes of the sacroiliac joints. Mild degenerative changes of the spine. IMPRESSION: NO ACUTE ABDOMINAL FINDINGS. Possible calcification in the left renal area projected over the left last rib. Follow-up advised. Reviewed, dictated and finalized at location A.
== END 2024-01-22 12:29 | disposition home or self-care (01) ==
LOC: ANHIMG 12:30
PROVIDERS: PCP Family Medicine; Visit Provider Urology
DX: N20.0 Calculus of kidney (principal)
CPT/HCPCS: 74018

== ENCOUNTER 2024-02-04 11:45 | Outpatient (CLI) | payer MEDICARE, SELFPAY ==
--- NOTE | ~2024-02-04 | CT_ITS ---
EXAMINATION:CT chest high resolution wo vt DATE: 02/04/2024 12:44 INDICATION: Asbestos exposure. Shortness of breath. TECHNIQUE: Computed tomography (CT) of the chest was performed without intravenous contrast. Automate d exposure control and iterative reconstruction technique were employed. The dose-length product (DLP ) was 1009.90 mGy-cm. COMPARISON: Chest CT 09/19/2018 FINDINGS: There is chronic marked elevation of right hemidiaphragm. There is mild emphysema. There is peripheral septal thickening in the lungs associated with groundglass opacities and architectural di stortion. There is mild bronchiectasis in the inferior lungs. There is peripheral honeycombing in rig ht lung. No pleural effusion. There is left atrial enlargement of the heart. There are coronary arter y calcifications. No pericardial effusion. There is a small sliding hiatal hernia. Calcifications in the spleen are consistent with old granulomatous disease. There is an 8 mm stone in right kidney. The re is severe cervical and thoracic spondylosis. There is a chronic compression fracture of T12. IMPRESSION: 1. Stable chronic lung disease, likely a combination of mild emphysema and chronic interstitial lung disease in a pattern of usual interstitial pneumonia (UIP). Reviewed, dictated and finalized at location E. IMPRESSION: 1. 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
--- NOTE | 2024-02-05 07:46 | WPDSIXMINUTE ---
Six Minute Walk Procedure Procedure Performed Pulmonary Stress Test (6 min walk) Six Minute Walk Six Minute Walk: This is a 6 minute walk test. The test was performed and interpreted in accordance with the 2014 ERS/ATS task force guidelines. Of note, patient walked with a cane and stop the test at 4 minutes due to shortness of breath. Findings: The patient's resting room air oxygen saturation measured by pulse oximetry was 98% and heart rate was 58 bpm. Patient ambulated for 122 meters and oxygen saturation remained 97 to 98%. Heart rate at the end of the study was 80 bpm. The patient did not qualify for supplemental oxygen at rest or with ambulation. There are no prior studies for comparison.
--- NOTE | 2024-02-05 07:47 | WPDPFTINT ---
PFT Procedure Performed PFT Procedure Performed Spirometry with Pre/Post Bronchodilator Plethysmography (Lung Vol) Diffusing Cap (DLCO) Flow Vol Loop PFT Interpretation This is a pulmonary function test with pre and post-bronchodilator spirometry, plethysmography and diffusing capacity. The test was performed and results interpreted in accordance with the 2019 and 2005 ATS/ERS Task Force guidelines respectively using the Global Lung Function Initiative-2012 reference equations. Patient demonstrated good effort and cooperation. Reproducibility criteria were met. The quality of the pre bronchodilator spirometry maneuver was Grade A and post bronchodilator spirometry maneuver was Grade A. Findings: Spirometry: The contour the inspiratory and expiratory flow tracing are normal. The pre bronchodilator FVC is 2.79 L, 74% predicted. The pre bronchodilator FEV1 is 2.20 L, 78% predicted. The pre bronchodilator FEV1: FVC ratio 79%. The post bronchodilator FVC is 2.78 L, representing 1% decrease. The post bronchodilator FEV1 is 2.19 L, representing 1% decrease. The post bronchodilator FEV1: FVC ratio 79%. Plethysmography: The total lung capacity is 6.38 L, 93% predicted. The functional residual capacity is 2.71 L, 73% predicted. The residual volume is 2.67 L, 104% predicted. Diffusing capacity: The diffusing capacity unadjusted for hemoglobin and carboxyhemoglobin is 18.0, 76% predicted. The diffusing capacity adjusted for alveolar volume is 4.78, 129% predicted. Impression: The spirometry is normal without evidence of an obstructive abnormality. There is no significant improvement after inhaling a single dose of albuterol. The lung volumes are normal. The diffusing capacity is normal. There are no prior studies for comparison
== END 2024-02-04 11:46 | disposition home or self-care (01) ==
PROVIDERS: PCP Family Medicine; Visit Provider Internal Medicine Critical Care Medicine
DX: R06.09 Other forms of dyspnea (principal); R91.8 Other nonspecific abnormal finding of lung field; G47.33 Obstructive sleep apnea (adult) (pediatric)
CPT/HCPCS: 71250; 94060; 94726; 94729

== ENCOUNTER 2024-02-09 05:14 | Emergency (ER) | payer MEDICARE, SELFPAY ==
--- NOTE | ~2024-02-09 | XR_ITS ---
EXAMINATION: XR chest 1V portable DATE: 02/09/2024 05:40 INDICATION: Shortness of breath TECHNIQUE: frontal view of the chest was obtained. COMPARISON: Chest radiograph dated 12/22/[address] dated 02/04/2024 FINDINGS: Persistent elevation the right hemidiaphragm. Lung volumes have decreased and there are increasing op acities in the right mid to lower and left lower lung zones which could represent atelectasis or pneu monia superimposed over the prior more subtle chronic interstitial lung disease. No pleural effusion or pneumothorax. Cardiomediastinal silhouette is within normal limits for AP technique. Mild thoracic levocurvature with severe spondylosis. IMPRESSION: 1. Decreasing lung volumes and increasing opacities in the right mid to lower and left lower lung zon es which could represent atelectasis or pneumonia superimposed over chronic interstitial lung disease . Reviewed, dictated and finalized at location A. IMPRESSION: 1. Decreasing lung volumes and increasing opacities in the right mid to lower a nd left lower lung zones which could represent atelectasis or pneumonia superim posed over chronic interstitial lung disease.
--- NOTE | 2024-02-09 05:17 | ECG_ITS ---
Test Date: 2024-02-09 05:21:46 Measurements Intervals [place] Rate: 73 P: 50 AL: 168 QRS: -54 QRSD: 148 T: 5 QT: 426 QTc: 471 Interpretive Statements SINUS RHYTHM RIGHT BUNDLE BRANCH BLOCK LEFT ANTERIOR FASCICULAR BLOCK VOLTAGE CRITERIA FOR LVH CANNOT R/O SEPTAL INFARCT, AGE INDETERMINATE BASELINE ARTIFACT- I, II, III, AVR, AVL, AVF, V1-V6 ABNORMAL ECG No previous ECG available for comparison Electronically Signed On 02-09-2024 07:18:49 CDT by Stoney Dodd D.O.
[2024-02-09 05:18] VITALS: PULSE 74; RESP 23; TEMP 36.1; O2SAT 94
[2024-02-09 05:23] VITALS: O2SAT 97
[2024-02-09 05:24] VITALS: O2SAT 97
--- NOTE | 2024-02-09 05:24 | ED.GENADULT ---
HPI - General Adult General Chief complaint: Shortness of Breath/Dyspnea Stated complaint: sob Time Seen by Provider: 02/09/24 05:15 History of Present Illness HPI narrative: 78-year-old male presents to the emergency department for evaluation of worsening shortness of breath. Patient states he has had worsening shortness breath over the last few days. Patient states that his BiPAP these at night stop working just a few days ago. Patient reports shortness of breath. Patient denies any chest pain. Patient's pulse ox was at 94-97% upon arrival. Related Data Home Medications Medication Instructions Recorded Confirmed multivitamin (Multiple Vitamins 1 tablet PO DAILY 05/30/19 01/14/24 tablet) cholecalciferol (vitamin D3) 100 4,000 unit PO DAILY 04/18/21 01/14/24 mcg (4,000 unit) capsule (Vitamin D3) lysine HCl 1,000 mg tablet 1,000 mg PO DAILY 10/01/23 01/14/24 apixaban 5 mg tablet (Eliquis) 5 mg PO BID 12/21/23 01/14/24 aspirin 81 mg tablet,delayed 81 mg PO DAILY 12/21/23 01/14/24 release (Adult Low Dose Aspirin) cyclobenzaprine 10 mg PO TID PRN Pain 12/21/23 01/14/24 Allergies Allergy/AdvReac Type Severity Reaction Status Date / Time codeine AdvReac Mild CONSTIPATIO Verified 02/09/24 05:25 N methylprednisolone AdvReac Mild Vomiting Verified 02/09/24 05:25 prednisone AdvReac Unknown Vomiting Verified 02/09/24 05:25 Review of Systems Review of Systems: All systems reviewed & are unremarkable except as noted in HPI and below [facility] Past Medical History Medical History (Updated 02/09/24 @ 06:17 by Julio Nazario MD) Anxiety Ataxia Atrial fibrillation Diagnosed 01/2022 Atrial flutter Diagnosis 06/2022. Benign prostatic hyperplasia BMI greater than 40 Chronic anemia Chronic anticoagulation Chronic obstructive pulmonary disease Compression fx, thoracic spine Diabetes mellitus with chronic kidney disease Diastolic heart failure LAY (dyspnea on exertion) Gastroesophageal reflux disease Hyperlipidemia Hypertension Low serum vitamin D Lumbar spondylosis Obstructive sleep apnea Obstructive Sleep Apnea-Hypopnea Syndrome Overactive bladder Peripheral neuropathy Peripheral vascular disease Pulmonary embolism (08/2018) Secondary erythrocytosis Related to COPD and obstructive sleep apnea. Previously received therapeutic phlebotomy. Tubulovillous adenoma of colon Ulcerative colitis Surgical History Surgical History H/O hemicolectomy History of bilateral cataract extraction History of cardiac catheterization History of cardioversion History of colonoscopy with polypectomy History of cystoscopy History of decompression of ulnar nerve Left elbow. History of dental surgery History of esophageal dilatation History of extraction of renal calculus History of prostatectomy History of right hemicolectomy (06/10/19) Benign tubulovillous adenoma. Hx of transurethral resection of prostate Family History Family History Father Hypertension Malignant neoplasm of prostate Sibling Diabetes mellitus Family history of cardiovascular disease Malignant neoplasm of prostate Hypertension Heart disease Mother Family history of rheumatic fever Heart disease Asthma Sibling Cancer Heart transplant recipient Other Family history of coronary artery disease Family history of lung cancer Social History Social History Social History: Surrogate decision maker: Akua Wilson, spouse. Code status: Full code. Smoking status: Never smoker Second hand tobacco smoke exposure: Yes Alcohol intake: never Substance use: never Substance use type: does not use Do You Feel Safe in your Home?: Yes Lack of Transportation: No Lack of Food: Never True Current Housing: I Have Housing Concerned
[2024-02-09 05:32] LABS: Basophils Absolute Auto 0.1 K/mm3 (0.0-0.1); Basophils Percent Auto 0.9 % (0.2-1.2); Eosinophils Absolute Auto 0.2 K/mm3 (0-0.3); Eosinophils Percent Auto 2.1 % (0-4.4); Hematocrit 45.1 % (42.0-52.0); Immature Granulocyte Absolute 0.05 K/mm3 (0.00-0.031); Immature Granulocyte Percent A 0.5 % (0-0.5); Lymphocytes Absolute Auto 1.98 K/mm3 (0.9-3.2); Lymphocytes Percent Auto 19.6 % (18.3-44.2); Mean Corpuscular HGB Conc 33.3 g/dl (32-36); Mean Corpuscular Hemoglobin 31.3 pg (26-34); Mean Corpuscular Volume 94.2 fl (80-100); Monocytes Absolute Auto 0.5 K/mm3 (0.1-0.6); Monocytes Percent Auto 5.3 % (2.6-8.5); Neutrophils Absolute Auto 7.2 K/mm3 (1.3-6.7); Neutrophils Percent Auto 71.6 % (45.5-73.1); Platelet Count Result 335 k/mm3 (150-375); Red Blood Count 4.79 M/mm3 (4.6-6.20); Red Cell Distribution Width 14.6 % (11.5-14.5); White Blood Count 10.1 K/mm3 (4.5-10.0)
[2024-02-09 05:41] LABS: Alanine Aminotransferase 19 U/L (6-50); Albumin Level 4.2 g/dL (3.5-5.1); Alkaline Phosphatase 126 U/L (38-126); Anion Gap 12 mmol/L (4-12); Aspartate Amino Transferase 26 U/L (17-59); Bilirubin,Total 0.8 mg/dL (0.2-1.3); Blood Urea Nitrogen 8 mg/dL (9-20); Calcium 9.5 mg/dL (8.4-10.2); Carbon Dioxide 24 mmol/L (22-30); Chloride 102 mmol/L (98-107); Estimated CRCL calculation 64 ml/min; Estimated Glomerular Filt Rate > 60; Glucose 134 mg/dL (65-110); Sodium 138 mmol/L (137-145)
[2024-02-09] MEDS: ALBUTEROL SULFATE NEB 2.5 MG/3 ML INH INHALATION (05:45)
[2024-02-09 05:48] VITALS: PULSE 62; RESP 19
[2024-02-09 05:50] LABS: NT Pro B Type Natriuretic Pept 352 pg/mL (19.9-100)
[2024-02-09 05:58] VITALS: PULSE 65; RESP 19
[2024-02-09 06:08] LABS: Influenza A QL RT-PCR Negative (Negative); Influenza B QL RT-PCR Negative (Negative); RSV RNA, RT-PCR Negative (Negative); SARS-CoV-2 RNA PCR Negative (Negative)
[2024-02-09 06:47] LABS: Troponin I < 0.012 ng/mL (0.000-0.034)
[2024-02-09 07:03] VITALS: BP 111/67; PULSE 66; RESP 17; O2SAT 99
== END 2024-02-09 07:04 | disposition home or self-care (01) ==
PROVIDERS: Emergency Provider Emergency Medicine; PCP Family Medicine
DX: R06.00 Dyspnea, unspecified (principal); I48.91 Unspecified atrial fibrillation; E11.22 Type 2 diabetes mellitus with diabetic chronic kidney disease; I12.9 Hypertensive chronic kidney disease with stage 1 through stage 4 chronic kidney disease, or unspecified chronic kidney disease; N18.9 Chronic kidney disease, unspecified; E78.5 Hyperlipidemia, unspecified; Z79.01 Long term (current) use of anticoagulants; Z20.822 Contact with and (suspected) exposure to COVID-19
CPT/HCPCS: 36415; 71045; 80053; 83880; 84484; 85025; 87637; 93005; 94640; 99284

== ENCOUNTER 2024-02-10 11:00 | Observation (INO) | payer MEDICARE, SELFPAY ==
[2024-02-10] VITALS (61 sets, daily range): BP systolic 70–161; BP diastolic 45–141; PULSE 47–67; RESP 11–30; TEMP 36.6–36.9; O2SAT 88–100; BMI 42.3
--- NOTE | ~2024-02-10 | CT_ITS ---
EXAMINATION: CT abdomen pelvis w con DATE: 02/10/2024 13:02 INDICATION: Increased weakness, nausea and vomiting. TECHNIQUE: Computed tomography (CT) of the abdomen and pelvis was performed with 100 mL Omnipaque-350 intravenous contrast. Automated exposure control and iterative reconstruction technique were employe d. The dose-length product was 1708.09 mGy-cm. COMPARISON: 11/05/2023 FINDINGS: Elevation the right hemidiaphragm. There are mild reticular opacities at the periphery of the bilater al lower lungs with some associated honeycombing consistent with usual interstitial pneumonia (UIP) p attern chronic interstitial lung disease. Heart size normal. Atherosclerotic coronary artery calcific ation. Aortic valve calcific lesion. No pericardial or pleural effusion. Small sliding-type hiatal he rnia. Multiple splenic calcific location consistent with old granulomatous disease. Liver, gallbladde r, pancreas and bilateral adrenal glands are normal. Bilateral renal cysts the largest on the with mi nimal peripheral rim calcific a tineo measuring 5.3 cm. Nonobstructing right renal stone measuring 7 m m. No other urolithiasis or hydronephrosis. Bladder is normal. There is mild colonic diverticulosis w ith a sigmoid predominance. There is no adjacent inflammatory change to suggest diverticulitis. [place] juancarlos interposition of the hepatic flexure the colon with more proximal right hemicolectomy with ileoco lic anastomosis anterior to the liver. No bowel obstruction. There is calcified atherosclerosis of th e aorta and many of the other arteries. No free intraperitoneal gas or fluid. No pathologically enlar ged abdominal or pelvic lymphadenopathy. Thoracic levoscoliosis with moderate spondylosis. Chronic T1 2 compression fracture with 40% anterior vertebral body height loss. Mild to moderate lumbar spondylo sis. IMPRESSION: 1. Small sliding-type hiatal hernia. 2. 7 mm nonobstructing right renal stone. 3. UIP pattern chronic interstitial lung disease. Reviewed, dictated and finalized at location A.
--- NOTE | 2024-02-10 11:33 | ECG_ITS ---
Test Date: 2024-02-10 11:18:59 Measurements Intervals [place] Rate: 56 P: 80 [place]: 154 QRS: -49 QRSD: 153 T: -5 QT: 473 QTc: 459 Interpretive Statements SINUS BRADYCARDIA RIGHT BUNDLE BRANCH BLOCK LEFT ANTERIOR FASCICULAR BLOCK VOLTAGE CRITERIA FOR LVH BASELINE ARTIFACT- I, II, III, AVR, AVL, AVF ABNORMAL ECG Compared to ECG 02/09/2024 05:21:46 HEART RATE HAS DECREASED Electronically Signed On 02-10-2024 19:39:25 CDT by Stoney Dodd D.O.
[2024-02-10 11:45] LABS: Basophils Absolute Auto 0.1 K/mm3 (0.0-0.1); Basophils Percent Auto 0.7 % (0.2-1.2); Eosinophils Absolute Auto 0.1 K/mm3 (0-0.3); Hematocrit 42.9 % (42.0-52.0); Hemoglobin 14.3 g/dL (14.0-18.0); Immature Granulocyte Absolute 0.06 K/mm3 (0.00-0.031); Immature Granulocyte Percent A 0.6 % (0-0.5); Lymphocytes Absolute Auto 1.66 K/mm3 (0.9-3.2); Lymphocytes Percent Auto 17.3 % (18.3-44.2); Mean Corpuscular HGB Conc 33.3 g/dl (32-36); Mean Corpuscular Volume 93.1 fl (80-100); Mean Platelet Volume 10.1 fl (7.4-10.4); Monocytes Absolute Auto 0.5 K/mm3 (0.1-0.6); Monocytes Percent Auto 5.6 % (2.6-8.5); Neutrophils Absolute Auto 7.2 K/mm3 (1.3-6.7); Neutrophils Percent Auto 74.8 % (45.5-73.1); Platelet Count Result 319 k/mm3 (150-375); Red Blood Count 4.61 M/mm3 (4.6-6.20); Red Cell Distribution Width 14.6 % (11.5-14.5); White Blood Count 9.6 K/mm3 (4.5-10.0)
[2024-02-10 11:58] LABS: Alanine Aminotransferase 19 U/L (6-50); Albumin Level 4.1 g/dL (3.5-5.1); Alkaline Phosphatase 117 U/L (38-126); Anion Gap 9 mmol/L (4-12); Aspartate Amino Transferase 31 U/L (17-59); Bilirubin,Total 1.1 mg/dL (0.2-1.3); Blood Urea Nitrogen 9 mg/dL (9-20); Calcium 9.5 mg/dL (8.4-10.2); Carbon Dioxide 26 mmol/L (22-30); Chloride 100 mmol/L (98-107); Estimated CRCL calculation 71 ml/min; Estimated Glomerular Filt Rate > 60; Glucose 103 mg/dL (65-110); Potassium 3.8 mmol/L (3.4-5.0); Sodium 135 mmol/L (137-145)
--- NOTE | 2024-02-10 12:08 | PC.NURSE ---
Addendum entered by Maria Gregorio RN 02/10/24 12:10: Pt reports the he is not feeling good, feels SOB all the time and can take it anymore. Pt said wanted to end all this and took about 18-20 different pills . Pt said he took about 18-20 pills all together of Atorvastatin 20mg, ASA 81mg, Vit.D3 Trazodone 100mg and some other medication that is small and white at around 10am, he does not know the name of it. Pt also reports that he vomit about 10min after her ingested the pills. [place] poison control called at 1150am and they recommended just to monitor for 2-3 hours for any s/s of respiratory distress or mental changes, and treat the symptoms. Original Note: Pt reports the he is not feeling good, feels SOB all the time and can take it anymore. Pt said wanted to end all this and took about 18-2-
--- NOTE | 2024-02-10 12:14 | ED.WEAKNESS ---
HPI - Weakness General Chief complaint: Weakness Stated complaint: weakness Time Seen by Provider: 02/10/24 12:13 Source: patient and family Mode of arrival: ambulatory Limitations: no limitations History of Present Illness HPI Narrative: 78 YEARS OLD WHITE MALE CAME FROM HOME WITH HIS COMPLAINING OF SHORTNESS OF BREATH FOR MONTHS, SEVERE DEPRESSION AND DRUG OVERDOSE TODAY. PATIENT'S TELLING ME THAT SHE FOUND SOME PILLS SITTING ON HIS CHEST MOST OF THEM TRAZODONE, THEN HE TOOK A HANDFUL OF PILLS IN FRONT OF HIS , 15-20 MINUTES LATER HAD QUITE A BIT OF VOMITING. CURRENTLY PATIENT IS ASYMPTOMATIC JUST SAD AND DEPRESSED. PATIENT REPORTS HE WOULD LIKE TO KILL HIMSELF BECAUSE NOBODY WANTS TO GIVE HIM OXYGEN FOR SHORTNESS OF BREATH. Related Data Home Medications Medication Instructions Recorded Confirmed multivitamin (Multiple Vitamins 1 tablet PO DAILY 05/30/19 01/14/24 tablet) cholecalciferol (vitamin D3) 100 4,000 unit PO DAILY 04/18/21 01/14/24 mcg (4,000 unit) capsule (Vitamin D3) lysine HCl 1,000 mg tablet 1,000 mg PO DAILY 10/01/23 01/14/24 apixaban 5 mg tablet (Eliquis) 5 mg PO BID 12/21/23 01/14/24 aspirin 81 mg tablet,delayed 81 mg PO DAILY 12/21/23 01/14/24 release (Adult Low Dose Aspirin) cyclobenzaprine 10 mg PO TID PRN Pain 12/21/23 01/14/24 Allergies Allergy/AdvReac Type Severity Reaction Status Date / Time codeine AdvReac Mild CONSTIPATIO Verified 02/09/24 05:25 N methylprednisolone AdvReac Mild Vomiting Verified 02/09/24 05:25 prednisone AdvReac Unknown Vomiting Verified 02/09/24 05:25 Review of Systems Review of Systems: All systems reviewed & are unremarkable except as noted in HPI and below PMFSH Past Medical History Medical History Anxiety Ataxia Atrial fibrillation Diagnosed 01/2022 Atrial flutter Diagnosis 06/2022. Benign prostatic hyperplasia BMI greater than 40 Chronic anemia Chronic anticoagulation Chronic obstructive pulmonary disease Compression fx, thoracic spine Diabetes mellitus with chronic kidney disease Diastolic heart failure LAY (dyspnea on exertion) Gastroesophageal reflux disease Hyperlipidemia Hypertension Low serum vitamin D Lumbar spondylosis Obstructive sleep apnea Obstructive Sleep Apnea-Hypopnea Syndrome Overactive bladder Peripheral neuropathy Peripheral vascular disease Pulmonary embolism (08/2018) Secondary erythrocytosis Related to COPD and obstructive sleep apnea. Previously received therapeutic phlebotomy. Tubulovillous adenoma of colon Ulcerative colitis Surgical History Surgical History H/O hemicolectomy History of bilateral cataract extraction History of cardiac catheterization History of cardioversion History of colonoscopy with polypectomy History of cystoscopy History of decompression of ulnar nerve Left elbow. History of dental surgery History of esophageal dilatation History of extraction of renal calculus History of prostatectomy History of right hemicolectomy (06/10/19) Benign tubulovillous adenoma. Hx of transurethral resection of prostate Family History Family History Father Hypertension Malignant neoplasm of prostate Sibling Diabetes mellitus Family history of cardiovascular disease Malignant neoplasm of prostate Hypertension Heart disease Mother Family history of rheumatic fever Heart disease Asthma Sibling Cancer Heart transplant recipient Other Family history of coronary artery disease Family history of lung cancer Social History Social History Social History: Surrogate decision maker: Akua Elzbietadebbie, spouse. Code status: Do not resuscitate. Smoking status: Never smoker Second hand tobacco smoke exposure: Yes Alcohol intake: never Substance
[2024-02-10] MEDS: SODIUM CHLORIDE 0.9% IV 1,000 ML 999 ML IV CONT (12:26)
[2024-02-10] MEDS: ONDANSETRON INJ 4 MG/2 ML VIAL IV PUSH (12:27)
[2024-02-10 12:40] LABS: Appearance Urine Clear (Clear); Bilirubin Urine Negative (Negative); Blood Urine Negative (Negative); Color Urine Yellow (Yellow); Glucose Urine UA Trace mg/dL (Negative); Ketones Urine Negative (Negative); Leukocyte Esterase Ur Negative LEU/UL (Negative); Nitrate Urine Negative (Negative); Protein Urine Negative (Negative); Specific Grav Ur 1.006 (1.001-1.035); Urobilinogen Urine 0.2 mg/dL (<2.0); pH Urine 6.5 (5.0-9.0)
[2024-02-10 12:45] LABS: Lactic Acid Reflex 1.3 mmol/L (0.7-2.0)
[2024-02-10 12:58] LABS: Add Urine Microscopic? NO
[2024-02-10 13:12] LABS: Influenza A QL RT-PCR Negative (Negative); Influenza B QL RT-PCR Negative (Negative); RSV RNA, RT-PCR Negative (Negative); SARS-CoV-2 RNA PCR Negative (Negative)
[2024-02-10 14:25] LABS: Lipase 34 U/L (23-300)
[2024-02-10 14:38] LABS: Troponin I 0.014 ng/mL (0.000-0.034)
--- NOTE | 2024-02-10 15:47 | PC.NURSE ---
Spoke with Lindsay HERNANDEZ with Poison Control. gave patient update including updated vital signs and lab work up results. poison control recommends aspirin level and tox screen.
--- NOTE | 2024-02-10 17:25 | PM.IMHP ---
H&P: HPI History of Present Illness Date/Time: 02/10/24 17:25 Chief Complaint: Shortness of breath and weakness. Narrative: This is a 78-year-old male with history of pulmonary embolism, chronic obstructive pulmonary disease, obstructive sleep apnea, diastolic congestive heart failure, paroxysmal atrial fibrillation and flutter status post cardioversion on chronic anticoagulation, hypertension, chronic kidney disease, and benign prostatic hyperplasia who presented to the emergency department for evaluation of shortness of breath and weakness. The patient provides the following history. His daily activities are limited by chronic shortness of breath which seems to have been getting worse over the past month. He has been seen by his meter readers supervisor and reports that he does not qualify for oxygen on walking study however he believes he would benefit from oxygen and it frustrates him that no one will prescribe it to him. He has occasional dysphagia with solid foods but had an EGD with esophageal dilatation done earlier this year. He has not had any choking episodes and denies concerns for aspiration. He has a chronic cough which is productive of clear and sometimes yellow sputum which is unchanged. He has not missed any doses of his apixaban. Inhalers and nebulizer treatments do not seem to provide longstanding benefit. He has not been sleeping well and does not think his BiPAP is working. He has not had chest pain, pleuritic pain, palpitations, orthopnea, or significant lower extremity edema. Due to frustration about ongoing dyspnea he came to the ED yesterday morning. His workup was unremarkable for acute findings and his SpO2 was in the upper 90s on room air and he was discharged home. He returns today with shortness of breath and weakness. Eventually the patient admitted to his nurse that he had taken a handful of medications this morning because ?I wanted to end all this and took about 18 to 20 different pills.? Patient believes the pills were atorvastatin 20 mg, aspirin 81 mg, vitamin D3, and trazodone 100 mg tablet. He took them around at 10:00 and reports having a large episode of emesis 10 minutes thereafter. Poison control was consulted and they recommended monitoring the patient for several hours and checking a toxicology screen and salicylate levels. He is being admitted in this setting for close monitoring and crisis consultation. At the time my evaluation he denies active suicidal ideation and is not having any harmful thoughts. He continues to feel despondent regarding his chronic medical conditions, mainly his breathing. Review of Systems Review of Systems: 12 systems were reviewed and are negative except for as per HPI. [facility] Past Medical History Medical History Anxiety Ataxia Atrial fibrillation Diagnosed 01/2022 Atrial flutter Diagnosis 06/2022. Benign prostatic hyperplasia BMI greater than 40 Chronic anemia Chronic anticoagulation Chronic obstructive pulmonary disease Compression fx, thoracic spine Diastolic heart failure Gastroesophageal reflux disease Hyperlipidemia Hypertension Low serum vitamin D Lumbar spondylosis Obstructive Sleep Apnea-Hypopnea Syndrome Overactive bladder Peripheral neuropathy Peripheral vascular disease Pulmonary embolism (08/2018) Secondary erythrocytosis Related to COPD and obstructive sleep apnea. Previously received therapeutic phlebotomy. Tubulovillous adenoma of colon Ulcerative colitis Surgical History Surgical History History of bilateral cataract extraction History of cardiac catheterization History of cardioversion History of colonoscopy with polypectomy History of cystoscopy History of decompression of ulnar nerve Left elbow. History of dental surgery History of esophageal dilatation History of extraction of renal calculus History of prostatectomy History of right he
[2024-02-10 17:54] LABS: Acetaminophen < 10 ug/mL (10-30); Ethanol < 10 mg/dL (<10); Salicylate < 1.0 mg/dL (2-20)
[2024-02-10 18:39] LABS: Amphetamine Screen Urine Negative (Negative); Barbiturate Screen Urine Negative (Negative); Benzodiazepines Screen Urine Negative (Negative); Cannabinoid Screen Urine Negative (Negative); Cocaine Screen Urine Negative (Negative); Methadone Screen Urine Negative (Negative); Opiate Screen Urine Negative (Negative); Phencyclidine Screen Urine Negative (Negative)
--- NOTE | 2024-02-10 19:34 | ADMGEN ---
This patient, Danial Wilson, was admitted to Intensive Care Unit-5 at 1915. Patient/family oriented to hospital policies and general routines including ID bracelet, bed and alarms, visiting hours, pain management, procedures, bathroom and other care routines, personal items, smoking policy, room service/diet, and visiting hours. Information on how to activate the Rapid Response Team has been discussed. Patient/Family are encouraged to report perceived risks to care and to ask questions if they do not understand what they are told or what they should do.
--- NOTE | 2024-02-10 21:14 | ADMGEN ---
This patient, Danial Wilson, was admitted to Intensive Care Unit-5 at 1905. Patient/family oriented to hospital policies and general routines including ID bracelet, bed and alarms, visiting hours, pain management, procedures, bathroom and other care routines, personal items, smoking policy, room service/diet, and visiting hours. Information on how to activate the Rapid Response Team has been discussed. Patient/Family are encouraged to report perceived risks to care and to ask questions if they do not understand what they are told or what they should do.
[2024-02-10] MEDS: APIXABAN 5 MG TABLET PO (23:40)
[2024-02-10] MEDS: SOTALOL HCL 80 MG TABLET PO (23:40)
[2024-02-10] MEDS: TAMSULOSIN HCL 0.4 MG CAPSULE PO (23:40)
[2024-02-10] MEDS: ROSUVASTATIN 20 MG TABLET PO (23:40)
[2024-02-10] MEDS: traMADol HCL (*CRX) 50 MG TABLET PO (23:40)
[2024-02-11] VITALS (11 sets, daily range): BP systolic 117–147; BP diastolic 47–72; PULSE 44–55; RESP 17–23; TEMP 36.6–36.7; O2SAT 93–99; BMI 42.2
[2024-02-11 03:51] LABS: Basophils Absolute Auto 0.1 K/mm3 (0.0-0.1); Basophils Percent Auto 0.7 % (0.2-1.2); Eosinophils Absolute Auto 0.2 K/mm3 (0-0.3); Eosinophils Percent Auto 2.5 % (0-4.4); Hematocrit 39.1 % (42.0-52.0); Hemoglobin 13.1 g/dL (14.0-18.0); Immature Granulocyte Absolute 0.04 K/mm3 (0.00-0.031); Immature Granulocyte Percent A 0.5 % (0-0.5); Lymphocytes Absolute Auto 1.93 K/mm3 (0.9-3.2); Lymphocytes Percent Auto 23.2 % (18.3-44.2); Mean Corpuscular HGB Conc 33.5 g/dl (32-36); Mean Corpuscular Hemoglobin 31.6 pg (26-34); Mean Corpuscular Volume 94.4 fl (80-100); Mean Platelet Volume 9.8 fl (7.4-10.4); Monocytes Absolute Auto 0.6 K/mm3 (0.1-0.6); Monocytes Percent Auto 7.3 % (2.6-8.5); Neutrophils Absolute Auto 5.5 K/mm3 (1.3-6.7); Neutrophils Percent Auto 65.8 % (45.5-73.1); Platelet Count Result 286 k/mm3 (150-375); Red Blood Count 4.14 M/mm3 (4.6-6.20); Red Cell Distribution Width 14.8 % (11.5-14.5); White Blood Count 8.3 K/mm3 (4.5-10.0)
[2024-02-11 04:01] LABS: Alanine Aminotransferase 16 U/L (6-50); Albumin Level 3.5 g/dL (3.5-5.1); Alkaline Phosphatase 98 U/L (38-126); Anion Gap 8 mmol/L (4-12); Aspartate Amino Transferase 29 U/L (17-59); Bilirubin,Total 0.8 mg/dL (0.2-1.3); Blood Urea Nitrogen 9 mg/dL (9-20); Carbon Dioxide 27 mmol/L (22-30); Chloride 101 mmol/L (98-107); Estimated CRCL calculation 71 ml/min; Estimated Glomerular Filt Rate > 60; Glucose 92 mg/dL (65-110); Magnesium 2.2 mg/dL (1.6-2.3); Potassium 3.5 mmol/L (3.4-5.0); Sodium 136 mmol/L (137-145)
--- NOTE | 2024-02-11 05:01 | PC.NURSE ---
Yani HERNANDEZ from Poison Control updated per patient condition. No further recommendations; is closed.
[2024-02-11] MEDS: FLUTICASONE/UMECLIDIN/VILANTER 100-62.5-25 MCG ELLIPTA 1 PUFF INHALATION (07:15)
[2024-02-11] MEDS: CHOLECALCIFEROL 1,000 UNITS TABLET 4000 UNITS PO (08:39)
[2024-02-11] MEDS: FUROSEMIDE 40 MG TABLET PO (08:40)
[2024-02-11] MEDS: ASPIRIN 81 MG ENTERIC TABLET PO (08:40)
[2024-02-11] MEDS: MULTIVITAMINS THERAPEUTIC TAB (*BKC) 1 TABLET PO (08:40)
[2024-02-11] MEDS: PANTOPRAZOLE 40 MG TABLET PO (08:40)
[2024-02-11] MEDS: POTASSIUM CHLORIDE 20 MEQ ER TABLET PO (08:40)
[2024-02-11] MEDS: ROFLUMILAST 500 MCG TABLET PO (08:40)
[2024-02-11] MEDS: traMADol HCL (*CRX) 50 MG TABLET PO ×2 (08:40→17:06)
[2024-02-11] MEDS: SPIRONOLACTONE 25 MG TABLET PO (08:40)
[2024-02-11] MEDS: SOTALOL HCL 80 MG TABLET PO ×2 (08:40→20:49)
--- NOTE | 2024-02-11 09:27 | ECG_ITS ---
Test Date: 2024-02-11 10:02:33 Measurements Intervals [place] Rate: 50 P: -53 LA: 119 QRS: -53 QRSD: 155 T: -6 QT: 513 QTc: 469 Interpretive Statements SINUS BRADYCARDIA WITH SHORT LA INTERVAL RIGHT BUNDLE BRANCH BLOCK LEFT ANTERIOR FASCICULAR BLOCK VOLTAGE CRITERIA FOR LVH BASELINE ARTIFACT- I, II, III, AVR, AVL, AVF ABNORMAL ECG Compared to ECG 02/10/2024 11:18:59 NO SIGNIFICANT CHANGE Electronically Signed On 02-11-2024 10:09:45 CDT by Stoney Dodd D.O.
[2024-02-11] MEDS: APIXABAN 5 MG TABLET PO ×2 (11:43→20:50)
--- NOTE | 2024-02-11 13:11 | PM.CNPUL ---
Assessment and Plan Assessment and plan (1) Intentional overdose: Code(s): T50.902A - Poisoning by unspecified drugs, medicaments and biological substances, intentional self-harm, initial encounter Status: Acute Assessment and Plan: This was the reason for admission, about 20 assorted pills including 4 trazodone 100 mg each when he was despondent over his health issues, short of breath, not able to sleep. He vomited, did not have loss of consciousness, no other adverse effect. [facility] has seen him, made a plan, has a contract with him re: suicide. He contracted not to harm himself, will have follow up, therapy and meds. (2) Chronic obstructive pulmonary disease: Qualifiers: COPD type: COPD with acute lower respiratory infection Qualified Code(s): J44.0 - Chronic obstructive pulmonary disease with (acute) lower respiratory infection Code(s): J44.9 - Chronic obstructive pulmonary disease, unspecified Status: Acute Assessment and Plan: Known COPD, bronchiectasis, ILD in lung bases, has HRCT 02/04/24, gradual worsening, and has elevated Right diaphragm. (3) Obstructive sleep apnea treated with BiPAP: Code(s): G47.33 - Obstructive sleep apnea (adult) (pediatric) Status: Acute Assessment and Plan: Was diagnosed with KIRSTEN in 1999, has been on auto BiPAP for several years,and is scheduled for a repeat sleep study February 25. He feels much better on APAP 5-15 here in the hospital. Will send order to have his home machine changed to these settings. (4) Shortness of breath: Code(s): R06.02 - Shortness of breath Status: Inactive Assessment and Plan: This is worsening for months, was the reason he took the attempted overdose with 20 pills including 4 trazodone. No clear reason; his HRCT 02/04/24 shows mild increase in bronchiectasis, UIP, without any large effusion, without an infiltrate, without anything acute. He is on Room Air, excluding any significant PE. Plan He is on room air, saturation is in the high 90% range. He is much more comfortable sleeping with APAP 5-15 cm here in the hospital instead of his auto-BiPAP at home. There is no clear reason for his severe shortness of breath. He does not feel that he was exceptionally anxious at home, leading to more shortness of breath. plan: Prednisone taper on discharge. APAP 5-15 cm to be used on his home machine until he can have sleep study February 25 We will move his study sooner if possible discussed with Dr Baugh, Mrs Wilson. He can follow up in 1-2 weeks in our office. History of Present Illness History of Present Illness Consult date: 02/11/24 Requesting physician: Kendy Baugh MD Chief complaint: Major depression,suicidal attempt,drug overdose Narrative: Patient was seen at February 10, 1:10 pm in ICU #5; is at the bedside. Reason: shortness of breath, KIRSTEN, cannot tolerate his current machine at night NEW : Danial Wilson is a 78 year old man followed in pulmonary clinic; I saw him 01/14/2024; he was not tolerating his BiPAP at al. He had good compliance, however, says that can only wear it for a few hours before getting up to move to the recliner feeling restless at night. He reports problems getting to sleep and staying asleep, has RLS symptoms in legs before sleep and sometimes in the night. He uses Trazodone 100 mg HS and has been on it for years. He has periodic limb movement disorder, and his pregabalin was recently adjusted by his neurologist. Overall he has been feeling awful with a main complaint of shortness of breath. At his December office visit, he said that his DME provider recently replaced his oxygen concentrator. n late November, his auto-
--- NOTE | 2024-02-11 16:05 | PCRCNOTE ---
Spoke to Silvio at [facility]. She stated that they have been in contact with pt and pt in regards to his home equipment. brought in his machine to have [facility] look at it, all pressures checked out ok December 26, 2023. Sent out tech to service O2 concentrator, all in working order. New supplies have been delivered November 27. Pt has seen Dr Jones in clinic a few days ago, and has an outpatient sleep study scheduled at the end of January. He will most likely be getting a new machine, but outpatient sleep study is needed for titration.
--- NOTE | 2024-02-11 16:37 | PM.DS ---
DS: Admitting Diagnosis Discharge Date February 11, 2024 Admitting Diagnosis Shortness of breath and weakness DS: Discharge Diagnosis Discharge Diagnosis (1) Anxiety: Code(s): F41.9 - Anxiety disorder, unspecified Status: Acute (2) Intentional overdose: Code(s): T50.902A - Poisoning by unspecified drugs, medicaments and biological substances, intentional self-harm, initial encounter Status: Acute (3) LAY (dyspnea on exertion): Code(s): R06.09 - Other forms of dyspnea Status: Acute (4) Chronic obstructive pulmonary disease: Qualifiers: COPD type: COPD with acute lower respiratory infection Qualified Code(s): J44.0 - Chronic obstructive pulmonary disease with (acute) lower respiratory infection Code(s): J44.9 - Chronic obstructive pulmonary disease, unspecified Status: Acute DS: Summary Hospital Course Hospital Course: H&P via Michelle Peralta PA-C on 02/10/24 This is a 78-year-old male with history of pulmonary embolism, chronic obstructive pulmonary disease, obstructive sleep apnea, diastolic congestive heart failure, paroxysmal atrial fibrillation and flutter status post cardioversion on chronic anticoagulation, hypertension, chronic kidney disease, and benign prostatic hyperplasia who presented to the emergency department for evaluation of shortness of breath and weakness. The patient provides the following history. His daily activities are limited by chronic shortness of breath which seems to have been getting worse over the past month. He has been seen by his user experience lead and reports that he does not qualify for oxygen on walking study however he believes he would benefit from oxygen and it frustrates him that no one will prescribe it to him. He has occasional dysphagia with solid foods but had an EGD with esophageal dilatation done earlier this year. He has not had any choking episodes and denies concerns for aspiration. He has a chronic cough which is productive of clear and sometimes yellow sputum which is unchanged. He has not missed any doses of his apixaban. Inhalers and nebulizer treatments do not seem to provide longstanding benefit. He has not been sleeping well and does not think his BiPAP is working. He has not had chest pain, pleuritic pain, palpitations, orthopnea, or significant lower extremity edema. Due to frustration about ongoing dyspnea he came to the ED yesterday morning. His workup was unremarkable for acute findings and his SpO2 was in the upper 90s on room air and he was discharged home. He returns today with shortness of breath and weakness. Eventually the patient admitted to his nurse that he had taken a handful of medications this morning because ?I wanted to end all this and took about 18 to 20 different pills.? Patient believes the pills were atorvastatin 20 mg, aspirin 81 mg, vitamin D3, and trazodone 100 mg tablet. He took them around at 10:00 and reports having a large episode of emesis 10 minutes thereafter. Poison control was consulted and they recommended monitoring the patient for several hours and checking a toxicology screen and salicylate levels. He is being admitted in this setting for close monitoring and crisis consultation. At the time my evaluation he denies active suicidal ideation and is not having any harmful thoughts. He continues to feel despondent regarding his chronic medical conditions, mainly his breathing. ----- This patient had alleged overdose of multiple different pills including aspirin, however his salicylate level was undetectable. in fact, he later reported he only actually took a few extra pills in order to find a reason into the ER and get his BiPAP machine figured out. He is a very pleasant man seems to just be frustrated as he was thinking his BiPAP machine was not working. The patient regretted ingesting those pills and had no further plans for suicide or homicide. A safety plan was made by the crisis team. The patient agreed not
[2024-02-11] MEDS: ROSUVASTATIN 20 MG TABLET PO (20:50)
[2024-02-11] MEDS: TAMSULOSIN HCL 0.4 MG CAPSULE PO (20:50)
--- NOTE | 2024-02-11 21:16 | PC.NURSE ---
The patient has been cleared for discharge on a safety contract with crisis (see care coordination note). He verbalized that he has no desire to harm himself or anyone else to this RN and Dr. Jones. Per physician to RN communication the patient has been removed from suicide precautions pending discharge in the A.M. This has been discussed in person with the patient and his . The charge rn is aware. Patient remains in ICU-5 for the time being and Angie RN is assuming care after being given report.
[2024-02-12] VITALS (8 sets, daily range): BP systolic 133–174; BP diastolic 67–84; PULSE 50–76; RESP 16–21; TEMP 36.4–36.7; O2SAT 96–100
[2024-02-12] MEDS: APIXABAN 5 MG TABLET PO (08:25)
[2024-02-12] MEDS: SOTALOL HCL 80 MG TABLET PO (08:25)
[2024-02-12] MEDS: CHOLECALCIFEROL 1,000 UNITS TABLET 4000 UNITS PO (08:25)
[2024-02-12] MEDS: PANTOPRAZOLE 40 MG TABLET PO (08:25)
[2024-02-12] MEDS: SPIRONOLACTONE 25 MG TABLET PO (08:25)
[2024-02-12] MEDS: MULTIVITAMINS THERAPEUTIC TAB (*BKC) 1 TABLET PO (08:25)
[2024-02-12] MEDS: PREGABALIN (*CRX) 75 MG CAPSULE PO ×2 (08:25→15:25)
[2024-02-12] MEDS: ASPIRIN 81 MG ENTERIC TABLET PO (08:25)
[2024-02-12] MEDS: ROFLUMILAST 500 MCG TABLET PO (08:25)
[2024-02-12] MEDS: FUROSEMIDE 40 MG TABLET PO (08:26)
[2024-02-12] MEDS: traMADol HCL (*CRX) 50 MG TABLET PO (08:26)
[2024-02-12] MEDS: POTASSIUM CHLORIDE 20 MEQ ER TABLET PO (08:26)
[2024-02-12] MEDS: FLUTICASONE/UMECLIDIN/VILANTER 100-62.5-25 MCG ELLIPTA 1 PUFF INHALATION (10:25)
--- NOTE | 2024-02-12 14:21 | PCRCNOTE ---
Spoke to Silvio at [facility]. She will reach out and see about changing his settings to APAP 5-15 on home unit until upcoming outpt sleep study at end of month, will await her call back when this is completed.
--- NOTE | 2024-02-12 16:49 | PCRCNOTE ---
SPOKE TO LATA AT [facility] BIRCH IN REGARDS TO HELPING THIS PT WITH ARRANGING A HOME CPAP UNIT THAT IS EQUIVALENT TO THE APAP SETTING WE HAVE HIM ON CURRENTLY HERE IN HOSPITAL. HE IS TOLERATING IT WELL, SLEEPING WELL, AND WE NEED TO TRY TO ENSURE HE WILL HAVE SOME RELIEF FROM SOB UNTIL HE HAS HIS FORMAL SLEEP STUDY. AND JUAN WILL WORK ON THIS SET UP FOR D/C HOME.
== END 2024-02-12 16:30 | disposition home or self-care (01) ==
LOC: ANHED 17:32 → ANHICU 22:31
PROVIDERS: Physician Assistant; Admitting Provider Internal Medicine; Emergency Provider Emergency Medicine; PCP Family Medicine; Visit Provider General Practice
DX: T50.902A Poisoning by unspecified drugs, medicaments and biological substances, intentional self-harm, initial encounter (principal); R11.10 Vomiting, unspecified; R06.02 Shortness of breath; I13.0 Hypertensive heart and chronic kidney disease with heart failure and stage 1 through stage 4 chronic kidney disease, or unspecified chronic kidney disease; I50.30 Unspecified diastolic (congestive) heart failure; E11.22 Type 2 diabetes mellitus with diabetic chronic kidney disease; N18.9 Chronic kidney disease, unspecified; I48.0 Paroxysmal atrial fibrillation; I48.92 Unspecified atrial flutter; J44.9 Chronic obstructive pulmonary disease, unspecified; D64.9 Anemia, unspecified; E78.5 Hyperlipidemia, unspecified; Z20.822 Contact with and (suspected) exposure to COVID-19; E55.9 Vitamin D deficiency, unspecified; G47.33 Obstructive sleep apnea (adult) (pediatric); E11.42 Type 2 diabetes mellitus with diabetic polyneuropathy; E11.51 Type 2 diabetes mellitus with diabetic peripheral angiopathy without gangrene; M47.816 Spondylosis without myelopathy or radiculopathy, lumbar region; K21.9 Gastro-esophageal reflux disease without esophagitis; N40.0 Benign prostatic hyperplasia without lower urinary tract symptoms; F41.9 Anxiety disorder, unspecified; Z86.711 Personal history of pulmonary embolism; Z79.51 Long term (current) use of inhaled steroids; Z79.01 Long term (current) use of anticoagulants; Z79.82 Long term (current) use of aspirin; Z90.49 Acquired absence of other specified parts of digestive tract
CPT/HCPCS: 36415; 74177; 80053; 80307; 81003; 83605; 83690; 83735; 84132; 84484; 85025; 87637; 93005; 94640; 96361; 96374; 99285; A9270; G0378; J2405; J7030; Q9967

== ENCOUNTER 2024-02-21 09:30 | Outpatient (CLI) | payer MEDICARE, SELFPAY ==
--- NOTE | 2024-02-28 16:04 | WPDSLEEPSTUD ---
Sleep Study Date of Study: 02/21/24 Ordering Provider: Raven Jones MD Interpreting Physician: Raven Jones MD Sleep Study Type: CPAP Titration Height: 1.75 m Weight: 127.006 kg Body Mass Index: 41.3 Neck Circumference (inches): 19 [place]: 6 Reason for Sleep Study Known KIRSTEN, has auto BiPAP machine which is not functioning, needs new sleep study and a new machine Sleep History Danial Wilson is 78 years old, has a long history of obstructive sleep apnea, and has been on an auto-BiPAP machine for years. His current machine is about 5 years old, and this machine stopped working properly recently, making it impossible for him to sleep normally. He has been sleeping for a few hours, then getting up to move to the recliner to finish sleeping for the rest of the night. He has many medical co-morbidities, so when his machine malfunctioned and he stopped sleeping well, his sleep deprivation led to a sub-catastrophic trazodone overdose with an ICU admission in the middle of January. Fortunately, he was able to use auto-PAP in the hospital, and he felt great. He presents now to have a repeat full night CPAP titration. He reports difficulty falling asleep and staying asleep. He wakes often during the night. He has difficulty waking in the morning. He also experiences excessive daytime sleepiness. He occasionally awakens from sleep feeling short of breath. He does not awaken at night with heartburn, belching or coughing. Using PAP he does not snore. Using PAP he does not have difficulty sleeping with a cold. He does not wake up gasping for breath during the night. He rarely has breathing problems at night observed by others while using PAP therapy. He does not sweat excessively at night and rarely notices his heart pounding or beating irregularly at night. He occasionally falls asleep during the day but never while driving because he no longer drives. He does not fall asleep involuntarily. He does not have loss of muscle tone with strong emotion. He does not have daytime difficulties due to excessive sleepiness. 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 He does not feel paralyzed on waking or falling asleep. He does not have vivid dreamlike scenes upon awakening or falling asleep. He does not feel afraid to go to sleep. He occasionally has nightmares. He occasionally remembers his dreams. He does not have racing thoughts. He denies feelings of sadness or depression. He occasionally has anxiety. He does not have muscular tension. He occasionally notices parts of his body jerking. He occasionally kicks at night. He rarely has crawling or aching feelings in his legs. He has neuropathy in his feet. He does not have morning jaw pain nor does he grind his teeth during sleep. He occasionally is bothered by pain during the day but never awakened by pain at night. He does not wake up feeling stiff in the morning, does not wake up with sore achy muscles or wake up with pain in the neck and spine. He has fatigue and dizziness. He reports a weight loss of 30 lb over the last year. Normal bedtime is 10:00 p.m. falling asleep within 30 minutes, sometimes longer. He typically wakes up 4 times during the night to urinate. These awakenings may last 30 minutes. His normal wake time is between 6:00 a.m. and 7:00 a.m.. He maintains the same schedule on weekends. He estimates getting between 5 and 6 hours of sleep overnight. He sleeps in the living room. He does not take naps in the afternoon or evening. Sometimes a short nap might be refreshing. He feels better in the afternoon compared to other times of day. Habits: tobacco: never smoker Caffeine: None Alcohol: None Recreational substances: None PMFSH Past Medical History Medical History Anxiety Ataxia Atrial fibrillation Diagnosed 01/2022 Atrial flutter Diagnosis 06/2022. Benign prostatic hyperplasia BMI gr
[2024-03-07 11:37] VITALS: BMI 41.3
== END 2024-02-22 06:45 | disposition home or self-care (01) ==
LOC: ANHCSM 09:30
PROVIDERS: PCP Family Medicine; Visit Provider Internal Medicine Critical Care Medicine
DX: G47.33 Obstructive sleep apnea (adult) (pediatric) (principal)
CPT/HCPCS: 95811

== ENCOUNTER 2024-02-26 09:57 | Outpatient (CLI) | payer MEDICARE, SELFPAY ==
--- NOTE | ~2024-02-26 | US_ITS ---
US arterial ankle brachial ind INDICATION: High cholesterol levels. Claudication. Tingling and numbness with leg pain. TECHNIQUE: Segmental pressures and plethysmographic and Doppler waveforms of the brachial and lower e xtremity arteries were obtained. COMPARISON: None. FINDINGS: Right and left brachial artery pressures of 134 mm Hg and 126 mm Hg, respectively, are concordant (no rmal difference <= 30 mmHg). There is biphasic flow in the lower extremity arteries. The right ankle-brachial index (NOAH) is 1.19 (normal >= 0.9-1.0). The right great toe-brachial index (TBI) is 0.6 (normal >= 0.60). The left NOAH is 1.4. The left TBI is 0.55. IMPRESSION: 1. Normal ankle-brachial indices. 2: Mildly diminished left toe brachial index consistent with mild peripheral arterial disease. 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 IMPRESSION: 1. Normal ankle-brachial indices. 2: Mildly diminished left toe brachial index consistent with mild peripheral a rterial disease.
== END 2024-02-26 09:58 | disposition home or self-care (01) ==
LOC: ANHIMG 09:58
PROVIDERS: PCP Family Medicine; Visit Provider Psychiatry & Neurology Neurology
DX: I73.9 Peripheral vascular disease, unspecified (principal)
CPT/HCPCS: 93922

== ENCOUNTER 2024-04-18 14:20 | Outpatient (CLI) | payer MEDICARE, SELFPAY ==
--- NOTE | ~2024-04-18 | XR_ITS ---
XR abdomen/kub 1V Ordering provider: Caitlin Marti, [employer] History: . CALCULUS OF KIDNEY . Comparison: January 22, 2024 FINDINGS: BOWEL: Nonobstructive bowel gas pattern. ORGANOMEGALY: None. SIGNIFICANT PATHOLOGIC CALCIFICATIONS: Stone seen in the right kidney. Possible tiny stone in the lef t kidney. OTHER: No free air is seen under the diaphragm. Degenerative changes of the spine. A IMPRESSION: NO ACUTE ABDOMINAL FINDINGS. Stone in the right kidney. Possible tiny stone in the left kidney. Reviewed, dictated and finalized at location A.
== END 2024-04-18 14:21 | disposition home or self-care (01) ==
PROVIDERS: PCP Family Medicine; Visit Provider Nurse Practitioner Family
DX: N20.0 Calculus of kidney (principal)
CPT/HCPCS: 74018

== ENCOUNTER 2024-04-25 09:53 | Outpatient (CLI) | payer MEDICARE, SELFPAY ==
--- NOTE | ~2024-04-25 | CT_ITS ---
EXAMINATION: CT abdomen pelvis wo con DATE: 04/25/2024 10:22 INDICATION: Left flank pain TECHNIQUE: Computed tomography (CT) of the abdomen and pelvis was performed without intravenous contr ast. The dose-length product was 1697.01 mGy-cm. Automated exposure control and iterative reconstruct ion technique were employed. COMPARISON: CT dated 02/10/2020 FINDINGS: There is dependent atelectasis with mild peripheral interstitial lung disease, likely chron ic. Heart size normal. Elevated right diaphragm. No significant pleural or pericardial effusion. Ther e are calcified granulomas of the liver and spleen. 7 mm nonobstructing right renal stone. There are left renal cysts. There are surgical changes of the right colon. There are left renal cysts, largest measuring 5.3 cm. Nonobstructive bowel gas pattern. Colonic diverticulosis without evidence for diver ticulitis. Chronic T12 compression fracture. Moderate-severe lumbar spondylosis. No significant vascu lar abnormality. No lymphadenopathy. IMPRESSION: 1. Nonobstructing right nephrolithiasis. 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
== END 2024-04-25 09:54 | disposition home or self-care (01) ==
PROVIDERS: PCP Family Medicine; Visit Provider Nurse Practitioner Family
DX: N20.0 Calculus of kidney (principal)
CPT/HCPCS: 74176

== ENCOUNTER 2024-05-08 08:41 | Outpatient (CLI) | payer MEDICARE, SELFPAY ==
[2024-05-08 09:23] LABS: Hematocrit 43.5 % (42.0-52.0); Hemoglobin 14.3 g/dL (14.0-18.0)
[2024-05-08 09:27] LABS: Add Urine Microscopic? YES; Appearance Urine Clear (Clear); Bacteria Urine None Seen /hpf; Bilirubin Urine Negative (Negative); Blood Urine Negative (Negative); Color Urine Yellow (Yellow); Glucose Urine UA 3+ mg/dL (Negative); Ketones Urine Trace mg/dL (Negative); Leukocyte Esterase Ur Negative LEU/UL (Negative); Nitrate Urine Negative (Negative); Non Pathogenic Casts 0-2; Protein Urine Trace mg/dL (Negative); RBC Urine 0-2 /hpf (0-2); Specific Grav Ur 1.035 (1.001-1.035); Squamous Epithelial Cell Urine None Seen /hpf (Few); WBC Urine 0-5 /hpf (0-3)
[2024-05-08 09:35] LABS: Anion Gap 7 mmol/L (4-12); Blood Urea Nitrogen 11 mg/dL (9-20); Calcium 9.6 mg/dL (8.4-10.2); Carbon Dioxide 29 mmol/L (22-30); Chloride 103 mmol/L (98-107); Estimated Glomerular Filt Rate > 60; Glucose 108 mg/dL (65-110); Prothrombin Time 13.4 Seconds (11.1-14.7); Sodium 139 mmol/L (137-145)
[2024-05-08 09:36] LABS: Partial Thromboplastin Time 28.8 Seconds (22.3-36.8)
== END 2024-05-08 08:42 | disposition home or self-care (01) ==
LOC: ANHSURGERY 08:44
PROVIDERS: Anesthesiology; PCP Family Medicine; Visit Provider Urology
DX: N20.0 Calculus of kidney (principal); N18.31 Chronic kidney disease, stage 3a; Z01.818 Encounter for other preprocedural examination
CPT/HCPCS: 36415; 80048; 81001; 85014; 85018; 85610; 85730

== ENCOUNTER 2024-05-16 00:22 | Day surgery (SDC) | payer MEDICARE, SELFPAY ==
[2024-05-07 13:31] VITALS: BMI 41.3
--- NOTE | 2024-05-07 14:08 | PC.NURSE ---
Report to the Outpatient Waiting Room, entrance under the green pavilion located off [facility], at time 09:00am___on date _05/16/24 . Planned Procedure Time: __11:00am .? Time changes happen often and if your time is changed the preop area will call you the afternoon before. - You and your visitor will be asked to self-screen and do not enter if you have any COVID symptoms. Please call surgeon if you need to reschedule. - A mask is optional within the hospital at this time. Patients may have clear liquids (water, carbonated beverages, clear teas, apple juice) until 3 hours prior to surgery with a maximum of 20 ounces. - No food from midnight until time of surgery and no smoking (0800am) Take only the following medications with a SIP of water on the morning of surgery: _Inhalers, Pregabalin, Sertraline, Solalol, and Tramadol as needed DO NOT STOP ANY OF YOUR OTHER PRESCRIPTION MEDICATIONS PRIOR TO SURGERY EXCEPT THE FOLLOWING Medications to discontinue per physician _Aspirin for [address] Ko. Date to take last dose is 05/08/24 Hold Eliquis for [address] Ko preop- Date to take last dose 05/13/24. Hold all vitamins and supplements for 3 days prior. Date to take last dose 05/12/24. Please no make-up, nail mohawk, hairspray, perfume, deodorant, or body powder the day of surgery.? No jewelry (including any body piercings) or valuables the day of surgery, leave them at home.? Please take a shower or bath the night before, or the morning of, surgery with an antibacterial soap.? Wear comfortable, loose fitting clothing.? - Jewelry must be removed prior to entering the operating room.? Rings and piercings that are not removed may be cut off. - The hospital will not accept responsibility for valuables.? - Please leave all valuables, including medications, at home the day of surgery. If you are going home after surgery, a licensed tractor driver must drive you home.? - NO public transportation without another adult if you receive anesthesia. - We recommend that an adult stay with you for 24 hours following discharge. - We also recommend that you do not drive, make important decision, drink alcoholic beverages, or take any drugs that were not prescribed by your health care provider for at least 24 hours after your discharge time. Follow any additional instructions given to you from your surgeon. Telephone instructions given to __patient____and asked if any additional questions and then verbalized understanding. Pt was rescheduled as soon as telephone visit was done, so new date and reschedule info on this Note for pt to get tomorrow. Patient advised to call surgeon office or pre surgery nurse liaison [phone] if any additional questions.
[2024-05-16] VITALS (9 sets, daily range): BP systolic 127–168; BP diastolic 60–92; PULSE 50–59; RESP 15–18; TEMP 36.3; O2SAT 95–100
--- NOTE | ~2024-05-16 | XR_ITS ---
XR abdomen/kub 1V 05/16/2024 07:49 Indication: Preop ESWL Procedure: KUB Comparison: 04/18/2024 Findings: There is a right renal stone. Bowel gas pattern nonobstructive. Moderate colonic fecal load ing. No acute osseous abnormality. Impression: 1: Right nephrolithiasis. 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 Impression: 1: Right nephrolithiasis.
--- NOTE | 2024-05-16 06:38 | WPDHPUPDATE1 ---
History and Physical Update Update Date/Time: 05/16/24 06:38 History and Physical has been reviewed, including an updated exam of the patient. There are NO changes in the patient's condition. Risks, benefits, and alternatives have been discussed and questions answered. Patient agrees to proceed with procedure.
[2024-05-16] MEDS: LACTATED RINGERS 1,000 ML 30 ML IV CONT (08:00)
[2024-05-16 08:23] LABS: Glucose Point of Care 90 mg/dl (65-105)
--- NOTE | 2024-05-16 08:28 | WPDANESEPPF ---
Anes - Initial Pre Proc Eval Procedure: Operation Date: 05/16/24 09:30 Proposed Procedures p Right Extracorporeal Shock Wave Lithotripsy - Ander Ko MD Date/Time: 05/16/24 08:28 Surgeon: Ander Ko MD Pre Op Diagnosis: Large Right Renal Stone Patient Data Age: 78 Gender: M Height: 1.75 m Weight: 127 kg Allergies Allergy/AdvReac Type Severity Reaction Status Date / Time codeine AdvReac Mild CONSTIPATIO Verified 05/14/24 13:39 N methylprednisolone AdvReac Mild Vomiting Verified 05/14/24 13:39 prednisone AdvReac Unknown Vomiting Verified 05/14/24 13:39 Home Medications Medication Instructions Recorded Confirmed Type multivitamin (Multiple Vitamins 1 tablet PO DAILY 05/30/19 05/14/24 History tablet) ferrous sulfate 325 mg (65 mg 325 mg PO DAILY #60 tabs 12/16/19 05/14/24 Rx iron) tablet cholecalciferol (vitamin D3) 100 4,000 unit PO DAILY 04/18/21 05/14/24 History mcg (4,000 unit) capsule (Vitamin D3) furosemide 40 mg tablet 40 mg PO DAILY #30 tabs 04/20/23 05/14/24 Rx potassium chloride 20 mEq 20 meq PO DAILY #90 tabs 06/19/23 05/14/24 Rx tablet,extended release(part/cryst) (Klor-Con M) omeprazole 20 mg capsule,delayed 20 mg PO DAILY #90 caps 08/23/23 05/14/24 Rx release balsalazide 750 mg capsule 2,250 mg PO BID #540 caps 09/27/23 05/14/24 Rx lysine HCl 1,000 mg tablet 1,000 mg PO DAILY 10/01/23 05/14/24 History roflumilast 500 mcg tablet 500 mcg PO DAILY COPD 3 months #90 11/06/23 05/14/24 Rx tabs rosuvastatin 20 mg tablet 20 mg PO HS #90 tabs 11/06/23 05/14/24 Rx albuterol sulfate 2.5 mg/3 mL 2.5 mg (3 mL) inhalation Q4-6H PRN 11/20/23 05/14/24 Rx (0.083 %) solution for nebulization shortness of breath or wheezing #90 mL apixaban 5 mg tablet (Eliquis) 5 mg PO BID 12/21/23 05/14/24 History aspirin 81 mg tablet,delayed 81 mg PO DAILY 12/21/23 05/14/24 History release (Adult Low Dose Aspirin) sotalol 80 mg tablet 80 mg PO Q12HR #60 tabs 12/25/23 05/14/24 Rx albuterol sulfate 90 mcg/actuation 2 inh inhalation Q4H PRN shortness 01/10/24 05/14/24 Rx aerosol inhaler of breath or wheezing #8.5 grams Trelegy Ellipta 100 mcg-62.5 1 inh inhalation Q24H 1 month #60 01/14/24 05/14/24 Rx mcg-25 mcg powder for inhalation ea (hfsxslmgjrm-efdtujqiq-qzaokhfu) sacubitril 49 mg-valsartan 51 mg 1 tablet PO BID 02/11/24 05/14/24 History tablet (Entresto) sertraline 25 mg tablet 25 mg PO DAILY #30 tabs 02/11/24 05/14/24 Rx docusate sodium 100 mg capsule 100 mg PO DAILY PRN constipation 02/18/24 05/14/24 Rx (Colace) #30 caps empagliflozin 10 mg tablet 10 mg PO DAILY 03/24/24 05/14/24 History (Jardiance) spironolactone 25 mg tablet 25 mg PO DAILY 03/24/24 05/14/24 History lidocaine 5 % topical patch 2 patch topical DAILY #30 ea 03/25/24 05/14/24 Rx pregabalin 25 mg capsule 25 mg PO BID #60 caps 03/25/24 05/14/24 Rx trazodone 100 mg tablet See Rx Instructions .Route 04/21/24 05/14/24 Rx .COMPLEX #90 tabs tramadol 50 mg tablet 50 mg PO BID pain #30 tabs 05/01/24 05/14/24 Rx Laboratory Tests 05/16/24 08:19 POC Capillary Glucose 90 mg/dl (65-105) Patient hx anesthesia problems: none Family hx anesthesia problems: none Results Review: All pre-operative results and documents have been reviewed as part of the pre-operative evaluation. [facility] Past Medical History Medical History Anxiety Ataxia Atrial fibrillation Diagnosed 01/2022 Atrial flutter Diagnosis 06/2022. Benign prostatic hyperplasia BMI greater than 40 Chronic anemia Chronic anticoagulation Chronic obstructive pulmonary disease Compression fx, thoracic spine Diastolic heart failure Gastroesophageal reflux disease Hyperlipidemia Hypertension Low serum vitamin D Lumbar spondylosis Obstructive sleep apnea Overactive bladder Peripheral neuropathy Peripheral vascular disease Pulmonary embolism (08/2018) Jason
[2024-05-16] MEDS: ceFAZolin 3 GM/D5W 100 ML 100 ML IVPB (09:18)
--- NOTE | 2024-05-16 09:37 | W.PM.PROC2 ---
Procedure Note - Detailed Date of Procedure 05/16/24 Pre-op Diagnosis Right Renal Stone Post-op Diagnosis Same Procedure Performed Right ESWL Surgeon Ander Ko MD Anesthesia General Description of Procedure The patient was brought to the operative suite where he was placed in the supine position on the Dornier lithotripsy table. The focal point of the lithotripter was placed at a 7mm right upper pole calculus. A total of 2500 shocks were delivered at a power setting of 4. There appeared to be good fragmentation of the stone. The patient tolerated the procedure well and was taken to the recovery room in good condition. Drains No Packing No Pathology None sent Complications No immediate complications
--- NOTE | 2024-05-16 10:20 | SUR.PHASEI ---
Simple mask removed at 1020.
[2024-05-16 10:21] LABS: Glucose Point of Care 97 mg/dl (65-105)
[2024-05-16] MEDS: fentaNYL CITRATE INJ (*CRX) 100 MCG/2 ML VIAL 25 MCG IV PUSH ×4 (10:31→10:41)
[2024-05-16] MEDS: oxyCODONE HCL (*CRX) 5 MG TAB IR PO (11:38)
== END 2024-05-16 12:20 | disposition home or self-care (01) ==
PROVIDERS: PCP Family Medicine; Visit Provider Urology
PROC: (CPT 50590; principal; 2024-05-16 09:30)
DX: N20.0 Calculus of kidney (principal); K21.9 Gastro-esophageal reflux disease without esophagitis; I13.0 Hypertensive heart and chronic kidney disease with heart failure and stage 1 through stage 4 chronic kidney disease, or unspecified chronic kidney disease; N18.31 Chronic kidney disease, stage 3a; I11.0 Hypertensive heart disease with heart failure; I50.30 Unspecified diastolic (congestive) heart failure; F41.9 Anxiety disorder, unspecified; I48.91 Unspecified atrial fibrillation; I48.92 Unspecified atrial flutter; N40.0 Benign prostatic hyperplasia without lower urinary tract symptoms; D64.9 Anemia, unspecified; J44.9 Chronic obstructive pulmonary disease, unspecified; E55.9 Vitamin D deficiency, unspecified; M43.06 Spondylolysis, lumbar region; N32.81 Overactive bladder; G62.9 Polyneuropathy, unspecified; I73.9 Peripheral vascular disease, unspecified; E29.1 Testicular hypofunction; F52.32 Male orgasmic disorder; R39.15 Urgency of urination; R39.198 Other difficulties with micturition; E66.01 Morbid (severe) obesity due to excess calories; Z68.41 Body mass index [BMI] 40.0-44.9, adult; Z79.51 Long term (current) use of inhaled steroids; Z79.01 Long term (current) use of anticoagulants; Z79.82 Long term (current) use of aspirin; Z79.84 Long term (current) use of oral hypoglycemic drugs; Z79.891 Long term (current) use of opiate analgesic; Z98.890 Other specified postprocedural states; Z98.61 Coronary angioplasty status; Z90.49 Acquired absence of other specified parts of digestive tract; Z86.0100 Personal history of colon polyps, unspecified; Z86.711 Personal history of pulmonary embolism; Z80.42 Family history of malignant neoplasm of prostate; Z80.1 Family history of malignant neoplasm of trachea, bronchus and lung; Z82.49 Family history of ischemic heart disease and other diseases of the circulatory system
CPT/HCPCS: 50590; 36415; 74018; 80048; 81001; 82948; 85014; 85018; 85610; 85730; A9270; J0690; J1100; J2405; J2704; J3010; J7120

== ENCOUNTER 2024-05-27 09:46 | Outpatient (CLI) | payer MEDICARE, SELFPAY ==
--- NOTE | ~2024-05-27 | XR_ITS ---
EXAMINATION: XR abdomen/kub 1V DATE: 05/27/2024 10:06 INDICATION: Calculus of kidney. TECHNIQUE: A supine view of the abdomen on 2 radiographs was obtained. COMPARISON: Abdomen radiographs 05/16/2024, CT abdomen and pelvis 04/25/2024 FINDINGS: There are no dilated loops of bowel. There is a 6 mm stone in right kidney. There are phleb oliths in the pelvis. IMPRESSION: 1. 6 mm stone in right kidney. 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
== END 2024-05-27 09:47 | disposition home or self-care (01) ==
PROVIDERS: PCP Family Medicine; Visit Provider Urology
DX: N20.0 Calculus of kidney (principal)
CPT/HCPCS: 74018

== ENCOUNTER 2024-06-17 09:48 | Outpatient (CLI) | payer MEDICARE, SELFPAY ==
--- NOTE | ~2024-06-17 | XR_ITS ---
XR abdomen/kub 1V Ordering provider: Ander Ko MD History: . HX OF KIDNEY STONES, NOCTURNAL POLYURIA, RECENT ESWL . Comparison: None. FINDINGS: BOWEL: Nonobstructive bowel gas pattern. ORGANOMEGALY: None. SIGNIFICANT PATHOLOGIC CALCIFICATIONS: Calcific shadow seen in the right upper quadrant which may be kidney or gallbladder stone. Follow-up advised. OTHER: Opacification the right lung base suggestive of pneumonia. No free air is seen under the diaph ragm. Bilateral hip osteoarthritic changes. Mild pubic symphysitis. Degenerative changes of the spine. IMPRESSION: NO ACUTE ABDOMINAL FINDINGS. Opacification in the right lung lower lobe clinical evaluation advised. Possible gallbladder or right kidney stone. Reviewed, dictated and finalized at location A. 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
== END 2024-06-17 09:49 | disposition home or self-care (01) ==
PROVIDERS: PCP Family Medicine; Visit Provider Urology
DX: R35.81 Nocturnal polyuria (principal); Z87.442 Personal history of urinary calculi; Z98.890 Other specified postprocedural states
CPT/HCPCS: 74018

== ENCOUNTER 2024-08-27 13:47 | Outpatient (CLI) | payer MEDICARE, SELFPAY ==
--- NOTE | ~2024-08-27 | CT_ITS ---
EXAMINATION: CT abdomen pelvis wo con DATE: 08/27/2024 14:24 INDICATION: Calculus of kidney. TECHNIQUE: Computed tomography (CT) of the abdomen and pelvis was performed without intravenous contr ast. Automated exposure control and iterative reconstruction technique were employed. The dose-length product was 984.92 mGy-cm. COMPARISON: CT abdomen and pelvis 04/25/2024 FINDINGS: The visualized portions of the lung bases demonstrate mild atelectasis and mild chronic vito g disease. There is mild bronchiectasis bilaterally. No pleural effusion. Cardiomegaly is noted. Ther e are coronary artery calcifications. No pericardial effusion. Calcifications in the liver and spleen are consistent with old granulomatous disease. There are gallstones in the gallbladder, which is nor mal in size. The pancreas and adrenal glands are normal. There are cysts in the kidneys measuring up to 4.7 cm on the left. There is an 8 mm stone in right kidney. There is a 3 mm stone in left kidney. There is diverticulosis of the colon without evidence of diverticulitis. There is an ileocolic anasto mosis. There are no pathologically enlarged lymph nodes. There is no free intraperitoneal fluid. Ther e is severe thoracic spondylosis and moderate lumbar spondylosis. There is a chronic compression frac ture of T12. IMPRESSION: 1. Bilateral nonobstructing kidney stones. Reviewed, dictated and finalized at location A. CUTTER
--- OUTSIDE RECORDS SUMMARY | 2024-08-27 14:39 | XMS_ITS | CONTINUITY OF CARE DOCUMENT ---
Author Name lebron diana Address Unknown Organization [facility] Address [address] [facility] [address] [facility] [address] [place] [address] Phone [phone] Care Team Providers Care Dual Hose Cementer Name Role Phone Kaitlin GALVAN, Marco Unavailable [employer]PL[employer] MAKER, HAIR Unavailable [phone] [employer]PLATE MAKER, HAIR Unavailable [phone] PROBLEMS Condition Status Date Provider Notes Other symptoms involving car diovascular system active Marco Madrigal MD SLEEP APNEA active Marco Madrigal MD COPD active Marco Madrigal MD HTN essential active Marco Madrigal MD GERD active Marco Madrigal MD Gout active Marco Madrigal MD Hyperlipidemia active Marco Madrigal MD SOB active Marco Madrigal MD Leg pain, bilateral active Marco Madrigal MD Polycythemia active Scotty Shultz MD Hypogonadism, low testosterone active Rob Shultz MD ENCOUNTERS Date Type Provider Location Encounter Diag nosis - In-person encounter Office Visit Marco Madrigal MD [facility] - In-person encounter Office Visit Scotty Shultz MD [facility] - In-person encounter Office Visit Scotty Shultz MD [facility] PolycythemiaHypogonadism, low testosterone - In-person encounter Office Visit Marco Madrigal MD [facility] - In-person encounter Office Visit Marco Madrigal MD [facility] Other symptoms involving cardiovascular systemSLEEP APNEACOPDHTN essentialGERDGoutHyperlipidemiaSOBLeg pain, bilateral VITAL SIGNS Date Observation Value Provider Body Mass Index (Ratio) 42.18 kg/m2 Nikolay Madrigal MD blood pressure, cuff size large Ke rri Red blood pressure, diastolic 81 mm[Hg] Ke rri Red blood pressure, systolic 161 mm[Hg] Jose Moon oxygen saturation, oximetry 96 % Tiffanie Moon respiratory rate E&M 16 /min Tiffanie perez pulse rate 100 /min Tiffanie little weight E&M 294 [lb_av] Tiffanie ernandezer height E&M 70 [in_i] Tiffanie little Body Mass Index (Ratio) 43.47 kg/m2 Raul Shultz MD blood pressure, diastolic 83 mm[Hg] Shant Turner blood pressure, systolic 201 mm[Hg] Saadia Turner oxygen saturation, oximetry 97 % Aleks Turner respiratory rate E&M 20 /min Luis M Turner pulse rate 92 /min Aleks carpenter weight E&M 303 [lb_av] Aleks carpenter height E&M 70 [in_i] Aleks carpenter Body Mass Index (Ratio) 43.04 kg/m2 Raul Shultz MD blood pressure, cuff size large Ke yannick Moon blood pressure, diastolic 90 mm[Hg] Ke rri Red blood pressure, systolic 160 mm[Hg] Jose eisenberg Adilsonelianedevon oxygen saturation, oximetry 94 % Tiffanie Arredondosheebaelianevishalvicente respiratory rate E&M 16 /min Tiffanie Flowers mosesmattvishalvicente pulse rate 76 /min Tiffanie Jorgensen lder weight E&M 300 [lb_av] Tiffanie Jorgensen lder height E&M 70 [in_i] Tiffanie Jorgensen lder blood pressure, diastolic 80 mm[Hg] Shant Turner blood pressure, systolic 154 mm[Hg] Saadia Turner pulse rate 100 /min Aleks Vanessa jerryneeraj oxygen saturation, oximetry 93 % Aleks Bolivarenson respiratory rate E&M 20 /min Luis M lul Turner Body Mass Index (Ratio) 43.26 kg/m2 Meme Turner weight E&M 293.0 [lb_av] Aleks Bolivar marlon blood pressure, diastolic 80 mm[Hg] Shant Collins Turner blood pressure, systolic 160 mm[Hg] Saadia Turner pulse rate 76 /min lAeks Vanessa jerryneeraj oxygen saturation, oximetry 97 % Aleks Bolivarenson respiratory rate E&M 20 /min Luis M mccarty Turner Body Mass Index (Ratio) 44.00 kg/m2 Meme Turner weight E&M 298 [lb_av] Aleks Vanessa jerryneeraj height E&M 69 [in_i] Aleks Bolivare pauline ALLERGIES Allergy Name Onset Date Reaction Criticality Status CODEINE Low Criticality active MEDROL DOSE PACK Low Criticality act sarbjit HISTORY OF MEDICATION USE Medication Status Instructions Dates Provider Indications Com ments AMLODIPINE BESYLATE 10 MG ORAL TABLET active take one pill a day Tiffanie Moon PENICILLIN V POTASSIUM 500 MG ORAL TABLET completed take one pill every 6 hours till gone started 06/07/16 - Aleks Turner TYLENOL CAPSULE active as needed Tiffanie Moon SOOLANTRA 1 % EXTERNAL CREAM active once daily Aleks Bolivarenson ORACEA 40 MG ORAL CAPSULE DELAYED RELEASE completed once daily - Tiffanie Moon DEPO-TESTOSTERON E SOLUTION active 400 ml injection once a month Tiffanie Moon MULTIVITAMINS ORAL CAPSULE active ONE TAB. DAILY AleksIliana Turner L-LYSINE 1000 MG ORAL TABLET active once daily Aleks Turner ASPIRIN ADULT LOW DOSE 81 MG ORAL TABLET DELAYED RELEASE active One Tab By Mouth Daily Aleks Turner CLONAZEPAM 2 MG ORAL TABLET active at bed time Aleks Turner TRAZODONE HCL TABLET active 100 mg at bed time Aleks Turner MIRAPEX 1 MG ORAL TABLET active once daily Aleks Turner OMEPRAZOLE 20 MG ORAL CAPSULE DELAYED RELEASE active ONE TAB. DAILY Aleks Turner ALLOPURINOL 300 MG ORAL TABLET active ONE TAB. DAILY Aleks Turner OXYBUTYNIN CHLORIDE ER 10 MG ORAL TABLET EXTENDED RELEASE 24 HOUR active once daily Aleks Bolivarenson SIMVASTATIN 20 MG ORAL TABLET active ONE TAB. DAILY Aleks Bolivarenson FUROSEMIDE 20 MG ORAL TABLET active once daily Aleks Bolivarenson BENAZEPRIL HCL 20 MG ORAL TABLET active take one pill a day Tiffanie Moon SOCIAL HISTORY Date Observation Value Provider smoking status Never smoker Marco Madrigal MD social history E&M Patient has n ever smoked. Second hand smoke exposure. A lcohol Use - no D rug Use - no Smoking History: P raj has never smoked. Marco Madrigal MD social history reviewed E&M revi ewed - no changes required Marco Madrigal MD alcohol use no Tiffanie Jorgensen lder drug use no Tiffanie Jorgensen lder social history reviewed E&M revi ewed - no changes required Scotty Shultz MD alcohol use no Aleks Vanessa nson drug use no Aleks Vanessa nson smoking status Never smoker Aleks Holt morales drug use no Scotty Zamorano social history E&M Patient has n ever smoked. Second hand smoke exposure. A lcohol Use - no D rug Use - no Smoking History: Altagracia anthony has never smoked. Scotty Shultz MD social history reviewed E&M revi ewed - no changes required Scotty Shultz MD alcohol use no Tiffanie Hirschfrank lder smoking status Never smoker Tiffanie Weaver nusrat social history reviewed E&M revi ewed - no changes required Marco Madrigal MD alcohol use no Aleks Vanessa nsneeraj smoking status Never smoker Aleks Cornelius alcohol use no Marco Madrigal MD number of grandchildren Marco Madrigal MD U estela Madrigal MD social history E&M Patient has n ever smoked. Smoking History: Altagracia anthony has never smoked. 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 Marco Madrigal MD [facility] Follow up :161/81. Possibly from further blood draws, the BP will improve. Marco Madrigal MD [facility] Follow up Us librado Madrigal MD [facility] Follow up Us librado Madrigal MD Hem/Onc New Patient: As above, he will reduce his testosterone injections by half. 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 The patient likely has polycythemia secondary to his use of testosterone injections. It is known that testosterone injections can have an erythropoietin affect. Nevertheless, I will rule out a primary polycythemia. I will check Serum Epo level and Jak2 V617F. I will check u/a to rule out hematuria. I will have the patient decrease his testosterone injections in half. He will return in 1 month for repeat blood work. Orders: E rythropoietin (EPO), Serum ([id number]) J AK2 V617F Rfx/Exon 12 (396131) C BC (INCLUDES DIFF/PLT) (6399) U RINALYSIS, COMPLETE (5463) 9 9244 MOD C omplex ([id number]) Scotty Shultz MD Cardiology:Refer to Dr. Shultz because high hemoglobin level. Marco Madrigal MD Cardiology Mraco Madrigal MD Cardiology Marco Madrigal MD Cardiology Marco Madrigal MD Cardiology:Will sche dule for cardiac cath. Feel that his SOB may be related to an anginal equivalent even though the stress test did not show maybe balanced ischemia. T he risks and benefits of the procedure, including but not limited the risk of heart attack, , stroke, bleeding, kidney failure, and loss of limb as well as the alternative of continued medical therapy, stress testing or bypass surgery were discussed with the patient and any present family members and the patient wishes to proceed with cardiac cath and stenting. The patient and family had opportunity to discuss this with us. Written material including informed consent was given out. Marco Madrigal MD Cardiology: Has been experiencing SOB a long time however the last couple of months he feels it has gotten much worse. W ill check blood work, echo, stress test, and holter Marco Madrigal MD Date Name CT, Chest URINALYSIS, COMPLETE CBC (INCLUDES DIFF/P LT) JAK2 V617F Rfx/Exon 12 Erythropoietin (EPO) , Serum Cardiac Cath - L/R - GC Arterial Duplex Bi-L ower EX STR - Adenosine Holter Monitor 24 Hr Complete Echo THYROID PANEL WITH T SH, 3RD GENERATION CBC (H/H, RBC, INDIC ES, WBC, PLT) B TYPE NATRIURETIC P EPTIDE (BNP) COMPREHENSIVE METABO LIC PANEL W/EGFR HISTORY OF PROCEDURES Procedure Date Procedure Name Provider Procedure Notes S tatus SNOMED-CT: 68550214 Physical Exam, Performed: Pulse Exam of Foot Marco Madrigal MD completed EKG Marco Madrigal MD completed SNOMED-CT: 025980260 917709 Current Medications Documented Marco Madrigal MD completed SNOMED-CT: 885707171 963021 Current Medications Documented Scotty Shultz MD completed SNOMED-CT: 938286809 629020 Current Medications Documented Scotty Shultz MD completed SNOMED-CT: 71787807 Physical Exam, Performed: Pulse Exam of Foot Marco Madrigal MD completed SNOMED-CT: 481465583 299844 Current Medications Documented Marco Madrigal MD completed Stress EKG Abi Reed MD completed Regadenoson, 4 units Marco Madrigal MD completed Cardiolite, 2 units Marco Madrigal MD completed SPECT Images Abi Reed MD complet ed SNOMED-CT: 28759510 Physical Exam, Performed: Pulse Exam of Foot Marco Madrigal MD completed SNOMED-CT: 090860302 397048 Current Medications Documented Marco Madrigal MD completed
--- OUTSIDE RECORDS SUMMARY | 2024-08-27 14:39 | XMS_ITS | Referral Summary ---
Author Organization [address] Address [address] [place] [address] Care Team Providers [facility] Name Role Phone Lucio Oliveira MD Primary Care Provider Lucio Oliveira MD Unavailable [phone] Encounters Date Type Department Care Team Description 07/11/2024 Telephone [facility] Cardiology at [address] [phone] Heber Alvarado MD updated med list 07/10/2024 2:15 PM POULTRY BARN MANAGER Office Visit [facility] Cardiology at [address] [phone] Heber Alvarado MD Typical atrial flutter (CMS/HCC) (HCC) (Primary Dx); Stage 3 chronic kidney disease, unspecified whether stage 3a or 3b CKD (HCC); Chronic heart failure with preserved ejection fraction (CMS/HCC) (HCC); KIRSTEN treated with BiPAP 06/20/2024 Telephone [facility] Care [address] [address] Aundrea Wong MA Unsuccessful Phone Call 3 (MED ADHERENCE) 06/16/2024 Telephone [facility] Cardiology [address] [place] [address] Heber Alvarado MD samples 06/12/2024 Telephone [facility] Care Organization [address] [place] [id number] Venice Whitfield MA Unsuccessful Phone Call 2 (Med adh) 06/10/2024 Telephone [facility] [address] [place] [address] Venice Whitfield MA Unsuccessful Phone Call 1 (Med adh) from Last 3 Months Allergies Active Allergy Reactions Criticality Noted Date Comments Codeine Nausea & Vomiting High Codeine Sulfate Unknown Influen Tr-Split 2004 Vac (Pf) Rash Medium 09/18 Methylprednisolone Nausea & Vomiting,Nausea And Vomiting High 07/13/2016 Other Unknown 06/08/2016 Prednisone Nausea And Vomiting Low 09/18/2019 Medications lysine (L-LYSINE) 500 mg tablet 500 mg. 0 0 5 Active Additional Information Patient not taking.Reported on 07/11/2024 omeprazole (PriLOSEC) 20 mg capsule 20 mg. 0 0 5 Active furosemide (LASIX) 40 mg tablet Take 1 tablet (40 mg total) by mouth daily 7 Active rosuvastatin (CRESTOR) 20 mg tablet 9 Active potassium chloride ER (KLOR-CON) 20 mEq CR tablet Take 1 tablet (20 mEq total) by mouth as needed 9 Active balsalazide (COLAZAL) 750 mg capsule TAKE 3 CAPSULES TWICE A DAY 4 9 Active albuterol 2.5 mg /3 mL (0.083 %) nebulizer solution 9 Active multivitamin capsule daily Active cholecalciferol (VITAMIN D-3) 1,000 unit capsule Take 1 capsule (1,000 Units total) by mouth 4 (four) times a day Active aspirin 81 mg enteric coated tablet Take 1 tablet (81 mg total) by mouth daily Active ferrous sulfate 325 mg (65 mg of elemental iron) tabletIndicatio ns:Iron Deficiency Anemia Take 1 tablet (325 mg total) by mouth daily with breakfast Active pramipexole (MIRAPEX) 1 mg tabletIndicatio ns:Periodic limb movement disorder,Persis tent disorder of initiating or maintaining sleep TAKE 1 TO 2 TABS 2-3 HOURS PRIOR TO BEDTIME 180 tablet 3 1 Active Additional Information Patient not taking.Reported on 07/11/2024 albuterol HFA (PROVENTIL HFA,VENTOLIN HFA,PROAIR HFA) 90 mcg/actuation inhaler 1 Active traZODone (DESYREL) 100 mg tabletIndicatio ns:Periodic limb movement disorder,Persis tent disorder of initiating or maintaining sleep Take 1-2 tablets every night at bedtime. 180 tablet 3 2 Active cyclobenzaprine (FLEXERIL) 10 mg tablet Take 1 tablet (10 mg total) by mouth 3 (three) times a day as needed for pain 2 Active fluticasone-ume clidin-vilanter (Trelegy Ellipta) 100-62.5-25 mcg inhaler Inhale 1 puff daily Active traMADoL (ULTRAM) 50 mg tablet Take 1 tablet (50 mg total) by mouth 2 (two) times a day 3 Active spironolactone (ALDACTONE) 25 mg tablet Take 1 tablet (25 mg total) by mouth every morning 90 tablet 3 3 Active Additional Information Patient not taking.Reported on 07/11/2024 tamsulosin (FLOMAX) 0.4 mg extended release capsule Take 1 capsule (0.4 mg total) by mouth nightly 3 Active empagliflozin (JARDIANCE) 10 mg tablet Take 1 tablet (10 mg total) by mouth daily 90 tablet 3 4 Active sacubitriL-vals chayiot (ENTRESTO) 49-51 mg tabletIndicatio ns:chronic heart failure Take 1 tablet by mouth 2 (two) times a day 180 tablet 3 4 Active apixaban (ELIQUIS) 5 mg tablet Take 1 tablet (5 mg total) by mouth 2 (two) times a day 180 tablet 3 4 Active roflumilast (DALIRESP) 500 mcg tablet 4 Active lysine 1,000 mg tablet Take by mouth 0 Active sotaloL (BETAPACE) 80 mg tabletIndicatio ns:Atrial flutter, unspecified type (HCC) Take 1 tablet (80 mg total) by mouth every 12 (twelve) hours 180 tablet 3 4 Active sertraline (ZOLOFT) 25 mg tablet Take 1 tablet (25 mg total) by mouth daily Active pregabalin (LYRICA) 25 mg capsule Take 1 capsule (25 mg total) by mouth 2 (two) times a day Active docusate sodium (COLACE) 100 mg capsuleIndicati ons:constipatio n Take 1 capsule (100 mg total) by mouth 2 (two) times a day as needed for constipation Active Active Problems Problem Noted Date Diagnosed Date H/O cardiomyopathy 05/09/2023 Chronic anticoagulation 11/03/2022 CKD (chronic kidney disease) stage 3, GFR 30-59 ml/min 09/14/2022 Persistent atrial fibrillation 07/19/2022 Atrial flutter (CMS/HCC) 07/19/2022 Other thrombophilia 07/19/2022 Chronic heart failure with p reserved ejection fraction (CMS/HCC) 08/09/2021 Benign hypertension with CKD (chronic kidney disease), stage II 08/09/2021 Coronary artery disease invo lving habematolel coronary artery of habematolel heart without angina pectoris 08/09/2021 Cough productive of clear sputum 11/11/2019 Stenosis of right carotid artery 07/02/2019 Acute meniscal tear of left knee 06/03/2019 Hoarseness 04/04/2019 Assessment & Plan (04/04/2019 1:47 PM CDT): He will see Dr. Danial Biggs for evaluation for his hoarseness. Morbid obesity with body mas s index (BMI) of 40.0 to 44.9 in adult 10/19/2017 Assessment & Plan (06/30/2019 1:54 PM POULTRY BARN MANAGER): He will try to get 30 minutes of activity daily. He will try to eat a diet with lean protein and vegetables. To help promote weight loss. Assessment & Plan (12/27/2018 3:30 PM CDT): Obesity is unchanged. Discussed the patient's BMI. The BMI is above average; BMI management plan is completed. General weight loss/lifestyle modification strategies discussed (elicit support from others; identify saboteurs; non-food rewards, etc). Assessment & Plan (12/06/2018 1:57 PM CDT): Obesity is unchanged. Discussed the patient's BMI. The BMI is above average; BMI management plan is completed. Informal exercise measures discussed, e.g. taking stairs instead of elevator. Assessment & Plan (06/07/2018 1:52 PM POULTRY BARN MANAGER): Obesity is improving with lifestyle modifications. Discussed the patient's BMI. The BMI is above average; BMI management plan is completed. Informal exercise measures discussed, e.g. taking stairs instead of elevator. Assessment & Plan (10/19/2017 11:43 AM CDT): Obesity is improving with lifestyle modifications. Discussed the patient's BMI. The BMI is above average; BMI management plan is completed. Informal exercise measures discussed, e.g. taking stairs instead of elevator. Muscle spasm of left lower extremity 04/13/2017 Hypercoagulable state 01/24/2017 Erythrocytosis 07/13/2016 Overview (05/30/2021): Polycythemia Overview: Polycythemia Mixed hyperlipidemia 07/13/2016 Simple chronic bronchitis 07/13/2016 Testicular hypofunction 06/07/2016 Chronic obstructive pulmonary disease 04/20/2016 Leg pain, bilateral 04/20/2016 Cardiovascular symptoms 04/19/2016 Gastroesophageal reflux disease 04/19/2016 Gout 04/19/2016 Pain in lower limb 04/19/2016 Dyspnea on exertion 04/11/2016 Overview (11/03/2016): Dyspnea on exertion Restless legs 06/18/2015 Overview (05/30/2021): Restless leg syndrome Overview: Restless leg syndrome KIRSTEN treated with BiPAP 12/11/2014 Overview (05/30/2021): Obstructive sleep apnea Overview: Obstructive sleep apnea Last Assessment & Plan: He will wear his bilevel machine nightly and try to increase his sleep time to 7-8 hours. Assessment & Plan (06/30/2019 1:53 PM POULTRY BARN MANAGER): He will wear his VPAP auto nightly but try to increase his sleep time to 7-9 hours. Reviewed and discussed with the patient that he should never sleep without wearing his V auto. Avoidance of the supine position was also recommended. Assessment & Plan (12/27/2018 3:30 PM CDT): He continues to have problems with shortness of breath or in night as well as apneas. He will return to the sleep lab for a bilevel titration. Patient may need O2 bleed in. Assessment & Plan (12/06/2018 1:57 PM CDT): He will take his bilevel machine set at 22/14 cm water pressure to [facility] for repair replace. Machine needs to be sent to the manufacture and checked. He should receive a loaner machine set on 22/14cm water pressure. He will start using it machine for 2 weeks and then return to the office for download. If loaner continues to show problems with elevated AHI he should return to the sleep lab for bilevel titration. Assessment & Plan (06/07/2018 1:52 PM POULTRY BARN MANAGER): He will wear his bilevel machine nightly and try to increase his sleep time to 7-8 hours. Assessment & Plan (10/19/2017 11:45 AM CDT): He will continue with bilevel 22/14 nightly for 7-9 hours. He was fit with an air touch F 20 medium fullface mask. Assessment & Plan (04/13/2017 10:34 AM CDT): Wear bilevel nightly for 7-9 hours and with any naps. He was given a new Airfit F 10 medium fullface mask and a Mirage Quattro medium fullface mask. Persistent disorder of initiating or maintaining sleep 12/11/2014 Overview (11/03/2016): Persistent disorder of initiating or maintaining sleep Assessment & Plan (12/27/2018 3:30 PM CDT): He will take trazodone 100 mg clonazepam 2 mg at bedtime. Assessment & Plan (06/07/2018 1:52 PM POULTRY BARN MANAGER): He will try to practice good sleep hygiene habits. He will keep a set sleep-wake pattern. He will take trazodone 100 mg at bedtime. Assessment & Plan (10/19/2017 11:44 AM CDT): Trazodone 100 mg at bedtime. Periodic limb movement disorder 12/11/2014 Overview (05/30/2021): PLMD (periodic limb movement disorder) Overview: Overview: Abdominal Overview: Abdominal Overview: PLMD (periodic limb movement disorder) Last Assessment & Plan: Clonazepam 2 mg at bedtime. Pramipexole 1 mg 2 hr prior to bedtime. Assessment & Plan (06/30/2019 1:54 PM POULTRY BARN MANAGER): He will take clonazepam 2 mg every night at bedtime. Assessment & Plan (12/27/2018 3:31 PM CDT): He will take pramipexole 1 mg to 3 hours prior to bedtime nightly Assessment & Plan (12/06/2018 1:58 PM CDT): He will take pramipexole 1 mg in clonazepam 2 mg at night for his restless legs. He will also take trazodone 100 mg at bedtime. Assessment & Plan (10/19/2017 11:44 AM CDT): Clonazepam 2 mg at bedtime. Pramipexole 1 mg 2 hr prior to bedtime. Benign hypertension 12/11/2014 Overview (04/13/2017): Hypertension Persistent insomnia 12/11/2014 Overview (05/30/2021): Overview: Persistent disorder of initiating or maintaining sleep Last Assessment & Plan: He will try to practice good sleep hygiene habits. He will keep a set sleep-wake pattern. He will take trazodone 100 mg at bedtime. Shortness of breath 02/06/2014 Encounter for long-term (current) use of other m edications 12/18/2008 Myoclonus 08/07/2008 Overview (04/13/2017): Overview: Abdominal Resolved Problems Problem Noted Date Diagnosed Date Resolved Date Dilated cardiomyopathy (CMS/HCC) 11/03/2022 05/09/2023 Morbid obesity with BMI of 40.0-44.9, adult 12/14/2016 10/19/2017 Obesity (BMI 35.0-39.9 without comorbidity) 11/16/2016 10/19/2017 Testicular hypofunction 06/08/2016 03/0 11/2023 Body mass index 40+ - severely obese 12/17/2015 10/19/2017 Overview (11/03/2016): Morbid obesity with BMI of 40.0-44.9, adult Morbid obesity 06/18/2015 10/19/2017 Overview (11/03/2016): Obesity, Class II, BMI 35.0-39.9, with comorbidity (see actual BMI) Class 3 obesity due to exces s calories with body mass index (BMI) 45.0 to 49.9 in adult 12/11/2014 10/19/2017 Overview (11/03/2016): Obesity Assessment & Plan (04/13/2017 10:34 AM CDT): Obesity is worsening. Discussed the patient's BMI. The BMI is above average; BMI management plan is completed. Informal exercise measures discussed, e.g. taking stairs instead of elevator. Discussed with the patient doing chair exercises. Also suggested he try water walking. Immunizations Name Administration Dates Next Due Influenza, Quadrivalent, Rec ombinant, Egg Free, Preservative Free, Intramuscular 04/29/2020 Influenza, Trivalent, High D ose, Split, Preservative Free, Intramuscular 04/29/2019,04/29/2018 Pneumococcal Conjugate PCV 13 08/07/2017 Pneumococcal Polysaccharide PPV23 07/07/2016 ZOSTER Recombinant 06/04/2020 Social History Tobacco Use Types Packs/Day Years Used Date Smoking Tobacco: Never Tobacco Cessation:Counseling Given: Not Answered Alcohol Use Standard Drinks/Week Comments No 0 (1 standard drink = 0.6 oz pur e alcohol) Sex and Gender Information Value Date Recorded Sex Assigned at Not on file Legal Sex Male 2:18 AM POULTRY BARN MANAGER Gender Identity Not on file Sexual Orientation Not on file Last Filed Vital Signs Vital Sign Reading Time Taken Comments Blood Pressure 148/88 07/10/2024 2:44 PM POULTRY BARN MANAGER Pulse 61 07/10/2024 2:44 PM POULTRY BARN MANAGER Temperature 36.3 ??C (97.3 ??F) 05/30/2021 12:52 PM C DT Respiratory Rate 16 08/09/2021 2:02 PM POULTRY BARN MANAGER Oxygen Saturation 96% 07/10/2024 2:44 PM POULTRY BARN MANAGER Inhaled Oxygen Concentration - - Weight 129.3 kg (285 lb) 07/10/2024 2:44 PM POULTRY BARN MANAGER Height 177.8 cm (5' 10 ) 07/10/2024 2:44 PM POULTRY BARN MANAGER Body Mass Index 40.89 07/10/2024 2:44 PM POULTRY BARN MANAGER Plan of Treatment Not on file Procedures Procedure Name Priority Date/Time Associated Diagnosis Comments BASIC METABOLIC PANEL Routine 06/14/2023 1:49 PM POULTRY BARN MANAGER Chronic heart failure with preserved ejection fraction (CMS/HCC) (HCC) Benign hypertension with CKD (chronic kidney disease), stage II H/O cardiomyopathy POCT LIPID PANEL Routine 11/03/2022 1:10 PM CDT Coronary artery disease involving habematolel coronary artery of habematolel heart without angina pectoris Mixed hyperlipidemia from Last 3 Months or Most Recently Relevant to Health Maintenance Results * (ABNORMAL) Basic metabolic panel (06/14/2023 1:49 PM POULTRY BARN MANAGER) Glucose 79 70 - 99 mg/dL [facility] - 01 BUN 17 8 - 27 mg/dL [facility] - 01 Creatinine, Serum 1.28(H) 0.76 - 1.27 mg/dL [facility] - 01 eGFR 57(L) >59 mL/min/1.7 3 [facility] - 01 BUN/creat ratio 13 10 - 24 [facility] - 01 Sodium 141 134 - 144 mmol/L [facility] - 01 Potassium, sr 4.9 3.5 - 5.2 mmol/L [facility] - 01 Chloride 103 96 - 106 mmol/L [facility] - 01 CO2 23 20 - 29 mmol/L [facility] - 01 Calcium 9.7 8.6 - 10.2 mg/dL [facility] - 01 Blood 06/14/2023 1:49 PM POULTRY BARN MANAGER 06/14/2023 Narrative [facility] - 06/15/2023 9:11 AM POULTRY BARN MANAGER Performed at: ??01 - [facility] [address] ??[id number] Manager Supply Chain Planning: Uday Morocho PhD, Phone: ??[phone] Specimen Comment: A courtesy copy of this report has been sent to [facility], Specimen Comment: [phone] Rey Pal MD LAB BLOOD ORDERABLES Fin al Result [facility] - 01 * POCT lipid panel (11/03/2022 1:10 PM CDT) Cholesterol, POC 128 mg/dL Comment:GLU = 134 HDL, POC 44 mg/dL Triglycerides, POC 142 mg/dL LDL Cholesterol POC 55 mg/dL Chol/HDL Ratio, POC 1.2 Non-HDL Cholesterol, POC 84 mg/dL Cholesterol Total, POC 128 mg/dL Capillary blood 11/03/2022 1 :10 PM CDT Rey Pal MD POINT OF CARE TEST ORDER MARTHA Final Result from Last 3 Months or Most Recently Relevant to Health Maintenance Insurance AET MED[employer]ARE [place] [phone] Care Teams [facility] Relationship Specialty Start Date End Date Lucio Oliveira MD PCP - General 07/02/19 Lucio Oliveira MD Family Medicine 07/02/19
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
--- OUTSIDE RECORDS SUMMARY | 2024-08-27 14:39 | XMS_ITS | Patient Health Record ---
Author Organization [facility] [employer] Address [address] [place] [address] Care Team Providers Care Post Graduate Internship Name Role Phone TAMMIE JOSEPH MD Primary Care Provider Unavail able Nancy Paige Unavailable [phone] GOKUL CARNEY Unavailable Unavailable Anastasia Sweeney Unavailable [phone] Allergies Allergen (clinical drug ingredient) Drug/Non Drug Allergy documented on EMR Reaction Allergy Type Onset Date Status codeine Codeine Unknown Drug Allergy Active methylprednisolone Methylprednisolone Unknown Drug Allergy Active prednisone Prednisone Unknown Drug Allergy Activ e Results Component Value Reference Range Notes UDT Reviewed date:03/21/2024 03:00:01 PM Interpretation: Performing Lab: Notes/Report: THC n 0 - 50 ng/ml Cocaine n 0 - 300 ng/ml Amphetamine n 0 - 1000 ng/ml Buprenorphine (BUP) n 0 - 10 ng/ml Secobarbital (Bar) n 0 - 300 ng/ml Oxazepam (BZO) n 0 - 300 ng/ml 7-ppkikbityv-9,1-wtjfnjtr-1,3-diphenylpyrrolidine (AKBAR P) n 0 - 300 ng/ml Methamphetamine (MET) n 0 - 1000 ng/ml Methylenedioxymethamphetamine (MDMA) n 0 - 500 ng/ml Morphine (MOP 300/HDH7339) n 0 - 300 ng/ml Methadone (MTD) n 0 - 300 ng/ml Phencyclidine (PCP) n 0 - 25 ng/ml Propoxyphene (PPX) n 0 - 300 ng/ml Nortriptyline (TCA) n 0 - 1000 ng/ml Oxycodone n 0 - 300 ng/ml Reason For Referral No Information Medications Medication SIG (Take, Route, Frequency, Duration) Notes Start Date End Date Status Lidocaine 5 % 1 patch remove after 12 hours Externally Once a day Active Balsalazide Disodium 750 MG 2 capsules O rally Twice a day Active Sertraline HCl 25 MG 1 tablet Oral Once a day for 30 days Active Roflumilast 500 MCG TAKE 1 TABLET BY MOUTH ONCE DAILY Oral for 30 Days Not-Taking Aspirin 81 81 MG 1 tablet Orally Once a day Active Potassium Chloride 20 MEQ 1 packet with food Orally Once a day Active HYDROcodone-Acetaminophen 5-325 MG Oral for 3 Days Not-Taking Balsalazide Disodium 750 MG Oral for 90 Days Not-Taking Albuterol Sulfate (2.5 MG/3ML) 0.083% Inhalation for 30 Days Not-Taking HYDROcodone-Acetaminophen 5-325 MG TAKE 1 TO 2 TABLETS BY MOUTH EVERY 6 HOURS NEEDED Oral for 3 Days Not-Taking Metoprolol Tartrate 25 MG TAKE 1 TABLET BY MOUTH TWICE DAILY Oral for 90 Days Not-Taking Ipratropium [place] 0.02 % INHALE 1 VIAL IN NEBULIZER THREE TIMES DAILY NEEDED FOR SHORTNESS OF BREATH FOR WHEEZING FOR 1 MONTH (USE IN THE NEBULIZER WITH ALBUTEROL) Inhalation for 24 Days Not-Taking Trelegy Ellipta 100-62.5-25 MCG/ACT 1 puff Inhalation Once a day Active Amoxicillin 875 MG TAKE 1 TABLET BY MOUTH EVERY 12 HOURS FOR 5 DAYS Oral for 5 Days Not-Taking Empagliflozin 10 MG 1 tablet Orally Once a day Active clonazePAM 0.5 MG TAKE ONE-HALF TABLET BY MOUTH EVERY DAY AT BEDTIME ADMINISTER 30 MINUTES BEFORE BEDTIME Oral for 30 Days Not-Taking Roflumilast 250 MCG Oral for 28 Days Not-Taking Roflumilast 250 MCG TAKE 1 TABLET BY MOUTH ONCE DAILY FOR 4 WEEKS Oral for 28 Days Not-Taking methylPREDNISolone 4 MG Oral for 6 Days Not-Taking Eszopiclone 1 MG Oral for 1 Days Not-Taking Spironolactone 25 MG Oral for 90 Days Active Furosemide 40 MG Oral for 90 Days Active Eszopiclone 1 MG TAKE 1 TABLET BY MOUTH AT BEDTIME AT SLEEP LAB IF NEEDED AT THE START OF THE TEST DO NOT TAKE AT HOME Oral for 1 Days Not-Taking methylPREDNISolone 4 MG Oral for 6 Days Not-Taking Sotalol HCl 80 MG TAKE 1 TABLET BY MOUTH EVERY 12 HOURS Oral for 30 Days Not-Taking predniSONE 10 MG Oral for 12 Days Not-Taking Ketorolac Tromethamine 10 MG TAKE 1 TABLET BY MOUTH EVERY 6 HOURS NEEDED Oral for 5 Days Not-Taking Ketorolac Tromethamine 10 MG Oral for 5 Days Not-Taking predniSONE 10 MG TAKE 4 TABLETS DAILY FOR 3 DAYS IN THE MORNING WITH FOOD, DECREASED BY 1 TAB EVERY 3 DAYS UNTIL COMPLETED Oral for 12 Days Not-Taking Pramipexole Dihydrochloride 1 MG Oral for 90 Days Active Roflumilast 500 MCG Oral for 90 Days Active Sotalol HCl 80 MG Oral for 90 Days Active Omeprazole 20 MG Oral for 90 Days Active Klor-Con M20 20 MEQ Oral for 90 Days Active traMADol HCl 50 MG TAKE 1 TABLET BY MOUTH TWICE DAILY FOR PAIN Oral for 15 Days Active Albuterol Sulfate HFA 108 (90 Base) MCG/ACT INHALE 2 PUFFS BY MOUTH EVERY 4 HOURS NEEDED FOR SHORTNESS OF BREATH OR WHEEZING Inhalation for 17 Days Active Albuterol Sulfate (2.5 MG/3ML) 0.083% Inhalation for 5 Days Acti ve Tamsulosin HCl 0.4 MG TAKE 1 CAPSULE BY MOUTH AT BEDTIME Oral for 90 Days Active Docusate Sodium 100 MG TAKE 1 CAPSULE BY MOUTH ONCE DAILY NEEDED FOR CONSTIPATION Oral for 30 Days Active Rosuvastatin Calcium 20 MG Oral for 90 Days Active Sertraline HCl 25 MG 1 tablet Orally Onc e a day for 30 days 07/31/2024 Active Ferrous Sulfate 325 (65 Fe) MG 1 tablet Orally Three times a Week Active traZODone HCl 100 MG Oral for 30 Days Active Multivitamin - 1 tablet Orally Once a day Active Pregabalin 75 MG 1 capsule in the evening 1 to 3 hours before bedtime Orally Once a day Active Cholecalciferol 100 MCG (4000 UT) 1 tablet Orally Once a day Active Vitamin D 50 MCG (2000 UT) 1 tablet Oral ly Once a day Active Lysine 1000 MG as directed Orally Active Eliquis 5 MG Oral for 90 Days Active Jardiance 10 MG Oral for 90 Days Active Entresto 49-51 MG Oral for 90 Days Active Social History Tobacco Use: Social History Observation Description Date Details (start date - stop date) Never Smoker NA - NA Sex Assigned At : Social History Observation Description Sex Assigned At Male Tobacco Control (Standard) Question Answer Notes Tobacco use: Nonsmoker Section Notes: Lives in [place] with w hussein of 56 yrs, 2 kids. G[place] up [place]. 6 siblings. Education/employment: Retired, worked at [employer] for 33 yrs, then worked at [employer]. service: 4 yrs [employer]. Lives in [place] with w hussein of 56 yrs, 2 kids. Grew up [place]. 6 siblings. Education/employment: Retired, worked at [employer] for 33 yrs, then worked at [employer]. service: 4 yrs [employer]. Problems Problem Type SNOMED Code ICD Code Onset Dates Problem Status W/U Status Risk Notes Problem Chronic insomnia (665336741) Chronic insomnia (F51.04) Active confirmed Problem 82957433 Adjustment disorder with other symptom (F43.29) Active confirmed Problem Obstructive sleep apnea syndrome (80165916) KIRSTEN treated with BiPAP (G47.33) Active confirmed Vital Signs Heart Rate 61 /min 07/18/2024 Height-cm 172.72 cm 07/18/2024 Blood pressure diastolic 56 mm Hg 07/18/2024 Weight-kg 127.91 kg 07/18/2024 Height 68 in 07/18/2024 Blood pressure systolic 148 mm Hg 07/18/2024 Weight 282.0 lbs 07/18/2024 BMI 42.87 kg/m2 07/18/2024 Encounters Encounter Location Date Provider Diagnosis [facility] [address] [address] 03/21/2024 Anastasia Woloszynek Adjustment disorder with other symptom F43.29 ; Chronic insomnia F51.04 and KIRSTEN treated with BiPAP G47.33 [facility] [address] [address] 04/18/2024 Anastasia Woloszynek Adjustment disorder with other symptom F43.29 ; Chronic insomnia F51.04 and KIRSTEN treated with BiPAP G47.33 [facility] [facility] [address] [address] 07/18/2024 Nancy Paige Adjustment disorder with other symptom F43.29 ; Chronic insomnia F51.04 and KIRSTEN treated with BiPAP G47.33 [facility] [address] [facility] [address] [address] 07/31/2024 Nancy Paige Adjustment disorder with other symptom F43.29 Assessments Encounter Date Diagnosis (ICD Code) Assessment Notes Treatment Notes Treatment Clinical Notes Section Notes 07/31/2024 Adjustment disorder with other symptom (ICD-10 - F43.29) 03/21/2024 Chronic insomnia (ICD-10 - F51.04) treated by sleep medicine MD with trazodone 03/21/2024 Adjustment disorder with other symptom (ICD-10 - F43.29) cont sertraline 25mg daily adjustment disorder denies current psychiatric complaints discuss, will cont sertraline for now and monitor for any further issues. review r/b/se. discuss if no further sx, behaviors may consider stopping next visit if they wish, pros/cons. Review safety, they both deny any concern for repeat, but reach out or go to ER before OD f/u with sleep dr about sleep/BiPap issues f/u 1 month, earlier if concerns 04/18/2024 Adjustment disorder with other symptom (ICD-10 - F43.29) cont sertraline 25mg daily adjustment disorder denies current psychiatric complaints f/u with sleep dr about sleep/BiPap issues discuss options, could try taper as brief issue/incident , or in general recommend wait several months first and see how does, no exacerbation, before stopping. he agrees to continue on current med for now. f/u 3 months, earlier if concerns. 07/18/2024 Adjustment disorder with other symptom (ICD-10 - F43.29) Assessment and Plan: Adjustment Disorder - Patient reports stable mood and no concerns regarding mental health - Currently on Sertraline 25 mg, inquires about discontinuation Plan: - Taper off Sertraline: take every other day or cut dose in half for a week, then stop - Monitor for changes in mood or anxiety levels Insomnia - Patient taking Trazodone and Pramipexole at nighttime for sleep - Reports frequent awakenings to urinate and difficulty getting restful sleep - Reports sleep issues primarily due to concerns with frequently urination and issues with BiPAP, reports not associated with mental health Plan: - Continue trazodone as prescribed by sleep specialist - Encourage follow-up with urologist for further evaluation and management - Encourage discussion of BiPAP issues with sleep specialist Follow-up in 2 months to assess mental health status after discontinuing Sertraline 03/21/2024 KIRSTEN treated with BiPAP (ICD-10 - G47.33) having issues with BiPap, interfering with ability to sleep f/u sleep medicine MD 04/18/2024 Chronic insomnia (ICD-10 - F51.04) treated by sleep medicine MD with trazodone 07/18/2024 Chronic insomnia (ICD-10 - F51.04) Assessment and Plan: Adjustment Disorder - Patient reports stable mood and no concerns regarding mental health - Currently on Sertraline 25 mg, inquires about discontinuation Plan: - Taper off Sertraline: take every other day or cut dose in half for a week, then stop - Monitor for changes in mood or anxiety levels Insomnia - Patient taking Trazodone and Pramipexole at nighttime for sleep - Reports frequent awakenings to urinate and difficulty getting restful sleep - Reports sleep issues primarily due to concerns with frequently urination and issues with BiPAP, reports not associated with mental health Plan: - Continue trazodone as prescribed by sleep specialist - Encourage follow-up with urologist for further evaluation and management - Encourage discussion of BiPAP issues with sleep specialist Follow-up in 2 months to assess mental health status after discontinuing Sertraline 07/18/2024 KIRSTEN treated with BiPAP (ICD-10 - G47.33) Assessment and Plan: Adjustment Disorder - Patient reports stable mood and no concerns regarding mental health - Currently on Sertraline 25 mg, inquires about discontinuation Plan: - Taper off Sertraline: take every other day or cut dose in half for a week, then stop - Monitor for changes in mood or anxiety levels Insomnia - Patient taking Trazodone and Pramipexole at nighttime for sleep - Reports frequent awakenings to urinate and difficulty getting restful sleep - Reports sleep issues primarily due to concerns with frequently urination and issues with BiPAP, reports not associated with mental health Plan: - Continue trazodone as prescribed by sleep specialist - Encourage follow-up with urologist for further evaluation and management - Encourage discussion of BiPAP issues with sleep specialist Follow-up in 2 months to assess mental health status after discontinuing Sertraline 04/18/2024 KIRSTEN treated with BiPAP (ICD-10 - G47.33) having issues with BiPap, interfering with ability to sleep f/u sleep medicine Plan Of Treatment Next Appt Details Provider Name:Nancy mccarty, 09/16/2024 01:00:00 PM, [address], [address], [place], [address], Insurance Providers Payer Name Payer Address Payer Phone Subscriber Number Group Number Insured Name Patient Relationship to Insured Coverage Start Date Coverage End Date [employer] [address] [place] [phone] [id number] Danial Wilson Self - patient is the insured Medical (General) History Medical History History ICD Code Anxiety Atrial Fibrillation COPD GERD HLD HTN KIRSTEN Surgical History Surgery Date(Month/Year) colon surgery-R hemicolectomy 2014 prostate 1998 cardiac cath cataracts ulnar nerve esophageal dilatation kidney stones TURP Hospitalization History Reason Date(Month/Year) psychotic episode due to bi pap not work ing 01/2024
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
--- OUTSIDE RECORDS SUMMARY | 2024-08-27 14:39 | XMS_ITS | Clinical Summary ---
Author Organization [facility] Address [address] [place] [address] Phone Care Team Providers Care Clay Products Machine Operator Name Role Phone Lucio Oliveira MD Primary Care Provider [phone] Allergies Active Allergy Reactions Criticality Noted Date Comments Codeine Nausea And Vomiting High 12/16/2018 Methylprednisolone Nausea And Vomiting 07/13/20 16 Prednisone Nausea And Vomiting 09/18/2019 Medications Medication Sig Dispensed Refills Start Date End Date Status albuterol (2.5 MG/3ML) 0.083% nebulizer solution Inhale 2.5 mg. Ac tive amLODIPine (NORVASC) 10 MG tablet Take 10 mg by mouth daily. 07/14/2016 Active apixaban (ELIQUIS) 5 MG tablet Take by mouth 2 times daily. Active clonazePAM (KlonoPIN) 2 MG tablet Take 2 mg by mouth. 07/16/2015 Activ e furosemide (LASIX) 20 MG tablet Take 20 mg by mouth daily. 09/21/2016 Active omeprazole (PriLOSEC) [address] capsule Take 20 mg by mouth daily. 12/11/2014 Active oxybutynin XL (DITROPAN-XL) 15 MG 24 hr tablet Take 15 mg by mouth daily. 02/09/2017 Active potassium chloride (KLOR-CON M20) 20 MEQ CR tablet Take 20 mEq by mouth daily. 09/21/2016 Active pramipexole (MIRAPEX) 1 MG tablet Take 2 mg by mouth daily. 07/21/2015 Active rosuvastatin (CRESTOR) 20 MG tablet Take 20 mg by mouth. Acti ve traZODone (DESYREL) 100 MG tablet Take 200 mg by mouth 06/03/2018 A ctive balsalazide (COLAZAL) 750 MG capsule TAKE 3 CAPSULES TWICE A DAY 4 02/14/2019 Active [facility] BISACODYL 10 MG suppository See administration instructions 0 04/04/2019 Active traMADol (ULTRAM) 50 MG tablet tramadol 50 mg tablet A ctive L-Lysine HCl 500 MG tablet Take 1,000 mg by mouth 12/08/2014 Active aspirin EC 81 MG EC tablet Take 81 mg by mouth daily Active cholecalciferol (Vitamin D-[address]) 25 MCG (1000 UT) tablet Take by mouth Active dextromethorphan-gu aiFENesin (MUCINEX DM) 30-600 MG per 12 hr tablet Take 1 tablet by mouth 2 times daily Active Guar Gum (NUTRISOURCE FIBER) pack Take 1 packet by mouth daily Active benazepril (LOTENSIN) 40 MG tablet Take 40 mg by mouth 1 (one) time each day Active cyclobenzaprine (FLEXERIL) 10 MG tablet Take 10 mg by mouth every night 11/22/2020 Active guaiFENesin (MUCINEX) 600 MG 12 hr tablet Take 1,200 mg by mouth 2 times daily Active Mirabegron ER 25 MG tablet sustained-release 24 hour 25 mg Active metOLazone (ZAROXOLYN) 5 MG tablet 04/11/2021 Active ferrous sulfate 325 (65 Fe) MG tablet Take by mouth daily Active Vibegron (Gemtesa) 75 MG tablet Take by mouth Active benzonatate (TESSALON) 200 MG capsule TAKE 1 CAPSULE BY MOUTH THREE TIMES DAILY NEEDED FOR COUGH 07/06/2021 Active losartan (COZAAR) 50 MG tablet Take 50 mg by mouth 1 (one) time each day 07/06/2021 Active mesalamine (CANASA) 1000 MG suppository INSERT 1 SUPPOSITORY RECTALLY AT BEDTIME 06/28/2021 Active diclofenac (CATAFLAM) 50 MG tablet Take 50 mg by mouth 2 (two) times a day 03/31/2022 Active Active Problems Problem Noted Date Diagnosed Date Chronic heart failure co-occ urrent with normal ejection fraction 08/09/2021 Chronic kidney disease stage 2 08/09/2021 Coronary atherosclerosis 08/09/2021 Stenosis of right carotid artery 07/02/2019 Chronic obstructive pulmonary disease 05/21/2019 Morbid obesity 05/21/2019 Osteoarthritis 05/21/2019 Renal stone 05/21/2019 Rosacea 05/21/2019 Bronchitis 05/21/2019 Spasm 04/13/2017 Hypercoagulable state 01/24/2017 Body mass index 30+ - obesity 11/16/2016 Overview (12/01/2018): Last Assessment & Plan: Obesity is improving with lifestyle modifications. Discussed the patient's BMI. The BMI is above average; BMI management plan is completed. Informal exercise measures discussed, e.g. taking stairs instead of elevator. Erythrocytosis 07/13/2016 Overview (12/01/2018): Overview: Polycythemia Mixed hyperlipidemia 07/13/2016 Simple chronic bronchitis 07/13/2016 Testicular hypofunction 06/08/2016 Hypogonadism 06/07/2016 Gastroesophageal reflux disease 04/19/2016 Gout 04/19/2016 Cardiovascular symptoms 04/19/2016 Pain in lower limb 04/19/2016 Restless legs 06/18/2015 Overview (12/01/2018): Overview: Restless leg syndrome Benign hypertension 12/11/2014 Overview (12/01/2018): Overview: Hypertension Obstructive sleep apnea 12/11/2014 Overview (12/01/2018): Overview: Obstructive sleep apnea Last Assessment & Plan: He will wear his bilevel machine nightly and try to increase his sleep time to 7-8 hours. Periodic limb movement disorder 12/11/2014 Overview (12/01/2018): Overview: Overview: Abdominal Overview: Abdominal Overview: PLMD (periodic limb movement disorder) Last Assessment & Plan: Clonazepam 2 mg at bedtime. Pramipexole 1 mg 2 hr prior to bedtime. Persistent insomnia 12/11/2014 Overview (12/01/2018): Overview: Persistent disorder of initiating or maintaining sleep Last Assessment & Plan: He will try to practice good sleep hygiene habits. He will keep a set sleep-wake pattern. He will take trazodone 100 mg at bedtime. Immunizations Name Administration Dates Next Due Influenza Recombinant James valent Injectable Preservative Free 04/29/2020 Influenza Split High Dose Preservative Free IM 1 ,04/29/2018 Pneumococcal Conjugate 13-Valent 08/07/2017 Pneumococcal Polysaccharide 07/07/2016 Sars-cov-2, Unspecified 12/06/2020 Zoster Recombinant 06/04/2020 Family History Medical History Relation Comments Hypertension Father Prostate cancer Father Rheumatic fever Mother Relation Status Comments Father Mother Social History Tobacco Use Types Packs/Day Years Used Date Smoking Tobacco: Never Smokeless Tobacco: Never Alcohol Use Standard Drinks/Week Comments No 0 (1 standard drink = 0.6 oz pur e alcohol) AUDIT-C Answer Date Recorded Frequency of Alcohol Consumption Never 12/01/2018 Average Number of Drinks Not on file 019 Frequency of Binge Drinking Not on file 11/2018 Sex and Gender Information Value Date Recorded Sex Assigned at Not on file Gender Identity Not on file Sexual Orientation Not on file Last Filed Vital Signs Vital Sign Reading Time Taken Comments Blood Pressure 132/74 05/11/2022 10:04 AM CDT Pulse - - Temperature 36.7 ??C (98.1 ??F) 05/11/2022 10:04 AM C DT Respiratory Rate 18 05/11/2022 10:04 AM CDT Oxygen Saturation - - Inhaled Oxygen Concentration - - Weight 138 kg (305 lb) 05/11/2022 10:04 AM CDT Height 175.3 cm (5' 9 ) 05/11/2022 10:04 AM CDT Body Mass Index 45.04 05/11/2022 10:04 AM CDT Plan of Treatment Health Maintenance Due Date Last Done Comments Influenza Vaccine (#1) 2024 04/29/2020 Pneumococcal PPSV23/PCV13 65 + Years / High and Highest Risk Completed 08/07/2017, 07/07/2016 Care Teams Clay Products Machine Operator Relationship Specialty Start Date End Date Lucio Oliveira MD [address] [place] [address] PCP - General Family Medicine 10/16/18
--- OUTSIDE RECORDS SUMMARY | 2024-08-27 14:39 | XMS_ITS ---
Author Organization [facility] [employer] [facility] Address [facility] [address] [address] Care Team Providers Care Machine Lay Out Worker Name Role Phone TAMMIE JOSEPH MD Primary Care Provider Unavail able Nancy Paige Unavailable [phone] GOKUL CARNEY Unavailable Unavailable REASON FOR VISIT Refill Medications Medication SIG (Take, Route, Fr equency, Duration) Notes Start Date End Date Status Sertraline HCl 25 MG 1 tablet Orally Onc e a day for 30 days 07/31/2024 Active Social History Sex Assigned At : Social History Observation Description Sex Assigned At Male Encounters Encounter Location Date Provider Diagnosis [facility] [employer] [place] [id number] [facility] [address] [facility] [address] [place] [address] 07/31/2024 Nancy Paige Adjustment disorder with other symptom F43.29 Assessments Encounter Date Diagnosis (ICD Code) Assessment Notes Treatment Notes Treatment Clinical Notes Section Notes 07/31/2024 Adjustment disorder with other symptom (ICD-10 - F43.29) Plan Of Treatment Medication Medication Name Sig Start Date Stop Date Notes Sertraline HCl 25 MG 1 tablet Orally Onc e a day for 30 days 07/31/2024 Next Appt Details Provider Name:Nancy mccarty, 09/16/2024 01:00:00 PM, [address] [facility] [address], [facility] [address], [place], [address], Progress Notes * Danial BOWEN ADOB:1945 (78 yo M)Acc No.[id number]:07/31/2024 Patient:?Danial BOWEN :1945???Age:78 Y???Sex:Male Address:[facility] [address] [place], [address] * Refills? Start Sertraline HCl Tablet, 25 MG, Orally, 30 Tablet, 1 tablet, Once a day, 30 days, Refills=1 Subjective: * Chief Complaints: * ???Refill * Medical History:? * Surgical History:? * Hospitalization/Major Diagno stic Procedure:? * Medications:? Objective: * Vitals:? * Physical Examination:? Assessment: * Assessment: 1.?Adjustment disorder with other symptom - F43.29 (Primary)??? Plan: * Treatment: * Procedure Codes:? * true * Date:? Generated for Miguelangel oh/Gay/eTkellysmitting on:?08/27/2024 02:38 PM CONTRACT FORESTER
--- OUTSIDE RECORDS SUMMARY | 2024-08-27 14:39 | XMS_ITS | Encounter Summary ---
Author Organization [facility] Healthcare Address [address] [place] [address] Care Team Providers Care Weigh And Charge Worker Name Role Phone Lucio Oliveira MD Primary Care Provider [phone] Lucio Oliveira MD Unavailable [phone] Encounter Details Date Type Department Care Team (Late st Contact Info) Description 12/21/2023 Orders Only [facility] Health Information Management [address] [place] [id number] Scanning, Provider Social History Tobacco Use Types Packs/Day Years Used Date Smoking Tobacco: Never Alcohol Use Standard Drinks/Week Comments No 0 (1 standard drink = 0.6 oz pur e alcohol) Sex and Gender Information Value Date Recorded Sex Assigned at Not on file Legal Sex 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 Gender Identity Not on file Sexual Orientation Not on file documented as of this encounter Plan of Treatment Not on file documented as of this encounter Procedures Procedure Name Priority Date/Time Associated Diagnosis Comments SCAN - RADIOLOGY/IMAGING 12/21/2023 documented in this encounter Results * SCAN - RADIOLOGY/IMAGING (12/21/2023) Anatomical Region Laterality Modality Other us Provider Scanning Final Result documented in this encounter Visit Diagnoses Not on filedocumented in this encounter Care Teams Weigh And Charge Worker Relationship Specialty Start Date End Date Lucio Oliveira MD PCP - General 07/02/19 Lucio Oliveira MD Family Medicine 07/02/19 documented as of this encounter
--- OUTSIDE RECORDS SUMMARY | 2024-08-27 14:39 | XMS_ITS | Continuity of Care Document ---
Author Organization [facility] Address [address] [place] [address] Phone Care Team Providers Care Fire Control Technician G Name Role Phone Rebecca Rowland Unavailable Unavailable Procedures Procedure Date Eye Exam, New Patient Refraction Advance Directives Directive Yes / No Effective Date File Name No Information Encounters Encounter Description Practice Location Reason(s) For Visit Diagnoses Date Provider Providers Copied on Encounter [facility], [address], [place], [place], [id number], [place] tel:[phone] [facility] No Information 0-201 0 Janett Fernandez. [address] [place] , [address], [place], [address], [place]. tel:[phone] Family History Family Member Type Diagnosis Age At Onset No Information Payers Payer name Insurance type Covered libertarian ID Authoryamilaa shereeneeraj(s) [employer] Vision Plan [id number] Social History Type Description Quantity Date Captured Comments Sex Male Smoking Status No Information Chief Complaint And Reason For Visit No Information Reason For Referral Reason For Referral No Information History Of Present Illness Encounter Date Complaint History Of Prese nt Illness No Information Functional Status Date Functional Assessmen t No Information Instructions Date Instruction Additional Infor mation No Information Assessments Type Assessment Date No Information Patient Care Teams Name Effective Dates (start - stop) Status Members No Information
--- OUTSIDE RECORDS SUMMARY | 2024-08-27 14:39 | XMS_ITS | Clinical Summary ---
Author Organization [facility] Address [address] [place] [address] Phone Care Team Providers Care Dementia Program Director Name Role Phone Lucio Oliveira MD Primary Care Provider [phone] Allergies Active Allergy Reactions Criticality Noted Date Comments Codeine Nausea and Vomiting High 12/16/2018 Influen Tr-Split 2005 Vac (Pf) Rash Medium 09/18 Methylprednisolone Nausea and Vomiting Low 07/13/20 16 Prednisone Nausea and Vomiting Low 09/18/2019 Unclassified Drug Other (See Comments) 06/08/20 16 Medications TRAZODONE 100 mg Oral Tab Take 200 mg by mouth daily at bedtime. Active MULTIVITAMIN ORAL daily. Active clonazePAM (KLONOPIN) 2 mg tablet Take 2 mg by mouth daily at bedtime. 07/16/20 15 Active pramipexole (MIRAPEX) 1 mg Tablet Take 2 mg by mouth daily. 07/21/20 15 Active amLODIPine (NORVASC) 10 mg tablet Take 10 mg by mouth daily . Active oxybutynin chloride (DITROPAN XL) 15 mg Extended Release 24 hour tablet Take 15 mg by mouth daily. Active furosemide (LASIX) 20 mg tablet Take 1 Tablet (20 mg) by mouth daily. 180 Tablet 4 09/21/19 17 Active Additional Information Patient taking differently: 40 mgOral DAILY, Reported on 03/29/2017 omeprazole (PriLOSEC) 20 mg Capsule, Delayed Release(E.C.) Take 20 mg by mouth daily . 05/15/20 15 Active lysine (L-LYSINE) 500 mg tablet Take 1,000 mg by mouth daily . 12/09/19 15 Active rosuvastatin (CRESTOR) 20 mg tablet Take 20 mg by mouth daily at bedtime. Active albuterol (PROVENTIL,GARFIELD RACQUEL) 2.5 mg /3 mL (0.083 %) Solution for Nebulization Take 2.5 mg by inhalation one time only. Active potassium chloride (KLOR-CON) 20 mEq Extended Release tablet Take 1 Tablet (20 mEq) by mouth daily. 90 Tablet 4 12/17/19 19 Active moxifloxacin (Vigamox) 0.5 % solution Vigamox 0.5 % eye drops Active flu vaccine trivalent (65 yr+)(PF)(FLUZONE HIGH DOSE) 180 mcg/0.5 mL IM syringe Fluzone High-Dose (PF) 180 mcg/0.5 mL intramuscular syringe PHARMACIST ADMINISTERED IMMUNIZATION ADMINISTERED AT TIME OF DISPENSING Active balsalazide (COLAZAL) 750 mg Capsule TAKE 3 CAPSULES BY MOUTH TWICE DAILY 02/04/20 20 Active cholecalciferol, vitamin D3, 1,000 unit Take by mouth. Acti ve aspirin (ECOTRIN EC) 81 mg Tablet, Delayed Release (E.C.) Take 81 mg by mouth daily. Active mirabegron (MYRBETRIQ) 25 mg Extended Release 24 hour tablet 25 mg. Active losartan (COZAAR) 50 mg tablet Take 50 mg by mouth daily. Active Eliquis 5 mg tablet 10/19/19 23 Active ferrous sulfate 325 mg (65 mg iron) tablet Take 325 mg by mouth daily with breakfast. Active Active Problems Problem Noted Date Diagnosed Date Hypercoagulable state 01/24/2017 Morbid obesity with BMI of 40.0-44.9, adult 11/27 Obesity (BMI 35.0-39.9 without comorbidity) 10/29 Erythrocytosis, primary familial 07/28/2016 Erythrocytosis 07/13/2016 Simple chronic bronchitis 07/13/2016 Benign hypertension 07/13/2016 Mixed hyperlipidemia 07/13/2016 Encounter for long-term (current) use of other m edications 12/18/2008 Myoclonus 08/07/2008 Overview (08/07/2008): Abdominal Family History Medical History Relation Name Comments Cancer Brother 1 Cancer Brother 2 Heart Disease Brother 2 Hypertension Father Heart Disease Mother Diabetes Sister 1 Hypertension Sister 1 Cancer Sister 2 Relation Name Status Comments Brother 1 Brother 2 Father Mother Sister 1 Sister 2 Social History Tobacco Use Types Packs/Day Years Used Date Smoking Tobacco: Never Alcohol Use Standard Drinks/Week Comments No 0 (1 standard drink = 0.6 oz pur e alcohol) Sex and Gender Information Value Date Recorded Sex Assigned at Not on file 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 Gender Identity Not on file Sexual Orientation Not on file Last Filed Vital Signs Vital Sign Reading Time Taken Comments Blood Pressure 185/91 12/12/2022 1:34 PM CDT Pulse 64 12/12/2022 1:30 PM CDT Temperature 36 ??C (96.8 ??F) 12/12/2022 1:30 PM CDT Respiratory Rate 10 12/12/2022 1:30 PM CDT Oxygen Saturation 98% 12/12/2022 1:30 PM CDT Inhaled Oxygen Concentration - - Weight 127.9 kg (282 lb) 12/12/2022 1:30 PM CDT Height 175.3 cm (5' 9 ) 12/12/2021 1:35 PM CDT Body Mass Index 41.64 12/12/2021 1:35 PM CDT Plan of Treatment Health Maintenance Due Date Last Done Comments DTAP/TDAP/TD VACCINES (1 - Tdap) 12/27/1963 RSV VACCINE (60+ or ) (1 - 1-dose 75+ series) 12/27/2019 ZOSTER VACCINE (2 of 2) 07/30/2020 06/04/2020 INFLUENZA VACCINE (#1) 2024 0, 04/29/2019, 04/29/2018 PNEUMOCOCCAL VACCINE 65+ YEARS Completed 08/07/2017 , 07/07/2016 Insurance [employer] O [facility] Care Teams Dementia Program Director Relationship Specialty Start Date End Date Lucio Oliveira MD [address] [place] [address] PCP - General Family Practice 10/21/18
--- OUTSIDE RECORDS SUMMARY | 2024-08-27 14:39 | XMS_ITS | Encounter Summary ---
Author Organization [facility] Address [address] [place] [address] Care Team Providers Care Home Hospice Aide Name Role Phone Lcuio Oliveira MD Primary Care Provider [phone] Encounter Details Date Type Department Care Team (Latest Contact Info) Description 12/18/2008 Outpatient Historical [facility] BRUNILDA Palacios, MD Pool NO ADDRESS ON FILE Other Degenerative Diseases of the Basal Ganglia Social History Tobacco Use Types Packs/Day Years Used Date Smoking Tobacco: Never Alcohol Use Standard Drinks/Week Comments No 0 (1 standard drink = 0.6 oz pur e alcohol) Sex and Gender Information Value Date Recorded Sex Assigned at Not on file Legal Sex Male 5:39 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 Gender Identity Not on file Sexual Orientation Not on file documented as of this encounter Plan of Treatment Not on file documented as of this encounter Procedures Procedure Name Priority Date/Time Associated Diagnosis Comments CBC WITH DIFFERENTIAL Routine 12/18/2008 1:49 PM CDT COMPREHENSIVE METABOLIC PANEL Routine 12/18/2008 1:49 PM CDT documented in this encounter Results * COMPREHENSIVE METABOLIC PANEL (12/18/2008 1:49 PM CDT) TOTAL PROTEIN 6.9 6.3 - 8.6 g/dL [facility] POTASSIUM 4.6 3.5 - 4.9 mmol/L [facility] GLUCOSE 74 65 - 99 mg/dL [facility] AST 29 12 - 38 U/L [facility] BUN 15 6 - 20 mg/dL [facility] CALCIUM 9.6 8.6 - 10.2 mg/dL [facility] CHLORIDE 101 96 - 108 mmol/L [facility] ALBUMIN 4.2 3.4 - 4.8 g/dL [facility] CREATININE 1.12 0.67 - 1.17 mg/dL [facility] SODIUM 138 135 - 145 mmol/L [facility] ALT 31 0 - 41 U/L [facility] ALKALINE PHOSPHATASE 75 40 - 129 U/L [facility] BILIRUBIN TOTAL 0.5 0.2 - 1.0 mg/dL [facility] CO2 27 22 - 30 mmol/L [facility] GFR, >60 >=60 mL/min/1.7 sq meter [facility] GFR >60 >=60 mL/min/1.7 sq meter [facility] Comment: Modification of Diet in Renal Disease (MDRD) study formula. Estimated GFR rate interpretative information for both Americans and non- Americans is available on the [facility] Intranet at: [email or web address] Select: Lab Policies and Procedures Select: Reference Ranges - GFR 12/18/2008 1:49 PM CDT 12/18/2008 3:00 PM CDT us Pool Palacios MD CHEMISTRY ORDERABLES Edited INTERFACE SYSTEM Refer to clinic/hospital department [facility] CLIA# [id number] [address] [place] [address] * (ABNORMAL) CBC WITH DIFFERENTIAL (12/18/2008 1:49 PM CDT) MCV 100.8(H) 82.0 - 99.0 fL [facility] PLATELETS 245 140 - 350 K/uL [facility] HEMOGLOBIN 17.1(H) 13.6 - 16.5 g/dL [facility] RDW 13.8 11.5 - 14.5 % [facility] WBC 6.5 4.0 - 9.8 K/uL [facility] MCH 34.5(H) 27.2 - 32.6 pg [facility] MPV 11.3 9.3 - 12.4 fL [facility] HEMATOCRIT 50.0(H) 40.0 - 48.0 % [facility] RDW-STDEV 50.9(H) 37.1 - 48.7 fL [facility] RBC 4.96 4.50 - 5.40 M/uL [facility] MCHC 34.2 31.5 - 35.5 % [facility] NEUTROPHILS 60 45 - 70 % [facility] NEUTROPHIL ABSOLUTE 3.88 1.90 - 7.00 K/uL [facility] EOSINOPHILS 3 0 - 7 % [facility] EOSINOPHIL ABSOLUTE 0.19 0.00 - 0.70 K/uL [facility] LYMPHOCYTES 27 16 - 45 % [facility] LYMPHOCYTE ABSOLUTE 1.76 0.70 - 4.50 K/uL [facility] BASOPHILS 1 0 - 2 % [facility] BASOPHILS ABSOLUTE 0.06 0.00 - 0.20 K/uL [facility] MONOCYTES 9 3 - 13 % [facility] MONOCYTE ABSOLUTE 0.59 0.10 - 1.30 K/uL [facility] 12/18/2008 1:49 PM CDT 12/18/2008 3:01 PM CDT us Pool Palacios MD HEMATOLOGY ORDERABLES Edited INTERFACE SYSTEM Refer to clinic/hospital department [facility] CLIA# [id number] [address] [place] [place] [address] documented in this encounter Visit Diagnoses Diagnosis Other degenerative diseases of the basal ganglia documented in this encounter Care Teams Home Hospice Aide Relationship Specialty Start Date End Date Lucio Oliveira MD [address] [place] [address] PCP - General Family Practice 10/21/18 documented as of this encounter
--- OUTSIDE RECORDS SUMMARY | 2024-08-27 14:39 | XMS_ITS | Clinical Summary ---
Author Organization [address] Address [address] [place] [address] Care Team Providers Care Instrumental Music Teacher Name Role Phone Lucio Oliveira MD Primary Care Provider Lucio Oliveira MD Unavailable [phone] Allergies Active Allergy Reactions Criticality Noted Date [...] daily 90 tablet 3 4 Active sacubitriL-vals chayito (ENTRESTO) 49-51 mg tabletIndicatio ns:chronic heart failure [...] II 08/09/2021 Coronary artery disease invo lving [place] coronary artery of [place] heart without angina pectoris 08/09/2021 Cough productive [...] 10/19/2017 Assessment & Plan (06/30/2019 1:54 PM APPLICATION SPEC): He will try to get 30 minutes [...] elevator. Assessment & Plan (06/07/2018 1:52 PM APPLICATION SPEC): Obesity is improving with lifestyle modifications. Discussed [...] hours. Assessment & Plan (06/30/2019 1:53 PM APPLICATION SPEC): He will wear his VPAP auto nightly [...] set at 22/14 cm [facility] for repair replace. Machine needs to be [...] titration. Assessment & Plan (06/07/2018 1:52 PM APPLICATION SPEC): He will wear his bilevel machine nightly and try to increase his sleep time to 7-8 hours. Assessment & Plan (10/19/2017 11:45 AM CDT): He will continue with bilevel / nightly for 7-9 hours. He was fit [...] bedtime. Assessment & Plan (06/07/2018 1:52 PM APPLICATION SPEC): He will try to practice good sleep [...] bedtime. Assessment & Plan (06/30/2019 1:54 PM APPLICATION SPEC): He will take clonazepam 2 mg every [...] Date Diagnosed Date Resolved Date Dilated cardiomyopathy ([facility]) 11/03/2022 05/09/2023 Morbid obesity with BMI of [...] exercises. Also suggested he try water walking. Encounters Date Type Department Care Team Description 07/11/2024 Telephone [facility] Cardiology at [address] [place] [phone] Heber Alvarado MD updated med list 07/10/2024 2:15 PM APPLICATION SPEC Office Visit [facility] Cardiology at [address] [place] [phone] Heber Alvarado MD Typical atrial flutter (CMS/HCC) (HCC) (Primary Dx); Stage 3 chronic kidney disease, unspecified whether stage 3a or 3b CKD (HCC); Chronic heart failure with preserved ejection fraction (CMS/HCC) (HCC); KIRSTEN treated with BiPAP 06/20/[address] [address] Aundrea Wong MA Unsuccessful Phone Call 3 (MED ADHERENCE) 06/16/2024 Telephone [facility] Cardiology [address] [place] [phone] Heber Alvarado MD samples 06/12/[address] [address] [place] Unsuccessful Phone Call 2 (Med adh) 06/10/[address] [address] [place] Whitfield [place] Unsuccessful Phone Call 1 (Med adh) from Last 3 Months Immunizations Name Administration Dates Next Due Influenza, Quadrivalent, Rec ombinant, Egg Free, Preservative Free, Intramuscular 04/29/2020 Influenza, Trivalent, High D ose, Split, Preservative Free, Intramuscular 04/29/2019,04/29/2018 Pneumococcal Conjugate PCV 13 08/07/2017 Pneumococcal Polysaccharide PPV23 07/07/2016 ZOSTER Recombinant 06/04/2020 Surgical History Surgery Date Site/Laterality Comments CARPAL TUNNEL RELEASE carpal tunnel surgery TRANSURETHRAL RESECTION OF PROSTATE TURP HEMORRHOID SURGERY hemorroidectomy CARDIAC CATHETERIZATION Cardiac cath COLON BIOPSY COLON SURGERY APPENDECTOMY 07/30/2018 - 07/29/2019 Medical History Medical History Date Comments Gastroesophageal reflux disease GERD - Gastro-esophageal reflux disease; Comments: AKV 12/08/2014 - Hypertension Hypertension Adiposity Obesity Depression Depression Hyperlipidemia COPD (chronic obstructive pu lmonary disease) (HCC) Sleep apnea Pulmonary embolus (HCC) Chronic bronchitis (HCC) Cataracts, bilateral Gout Enlarged prostate Family History Medical History Relation Name Comments COPD Brother 1 Prostate cancer Brother 1 Heart disease Brother 2 Hypertension Father Hypertension; Prostate cancer Father Cancer, pros garcia; Rheumatic fever Mother Rheumatic fe fernando; Lung cancer Sister 1 Diabetes Sister 2 Heart disease Sister 2 Relation Name Status Comments Brother [...] on file Legal Sex Male 2:18 AM APPLICATION SPEC Gender Identity Not on file Sexual Orientation Not on file Obstetrics History Last Filed Vital Signs Vital Sign Reading Time Taken Comments Blood Pressure 148/88 07/10/2024 2:44 PM APPLICATION SPEC Pulse 61 07/10/2024 2:44 PM APPLICATION SPEC Temperature 36.3 ??C (97.3 ??F) 05/30/2021 12:52 PM C DT Respiratory Rate 16 08/09/2021 2:02 PM APPLICATION SPEC Oxygen Saturation 96% 07/10/2024 2:44 PM APPLICATION SPEC Inhaled Oxygen Concentration - - Weight 129.3 kg (285 lb) 07/10/2024 2:44 PM APPLICATION SPEC Height 177.8 cm (5' 10 ) 07/10/2024 2:44 PM APPLICATION SPEC Body Mass Index 40.89 07/10/2024 2:44 PM APPLICATION SPEC Plan of Treatment Health Maintenance Due Date Last Done Comments Albumin Creatinine Ratio, Urine 1945 Depression Screening 1945 Fall Risk Assessment 1945 Hemoglobin A1C 1945 Hepatitis C Screening 1945 Dilated Eye Exam 1945 Foot Exam 1945 DTaP/Tdap/Td Vaccine (1 - Tdap) 12/27/1955 Hepatitis B Screening 1962 Well Visit 65+ 2009 Zoster Vaccine (2 of 2) 07/30/2020 06/04/2020 Lipid Panel 11/04/2023 11/03/2022, 08/09/2021 Influenza Vaccine (#1) 2024 , 04/29/2019, 04/29/2018 eGFR 06/14/2024 06/14/2023, 04/29, 09/11/2022 Pneumococcal vaccine 65+ Completed 08/07/2017, 120 03/2016 Procedures Procedure Name Priority Date/Time Associated Diagnosis Comments BASIC METABOLIC PANEL Routine 06/14/2023 1:49 PM APPLICATION SPEC Chronic heart failure with preserved ejection fraction (CMS/HCC) (HCC) Benign hypertension with CKD (chronic kidney disease), stage II H/O cardiomyopathy POCT LIPID PANEL Routine 11/03/2022 1:10 PM CDT Coronary artery disease involving [place] coronary artery of [place] heart without angina pectoris Mixed hyperlipidemia from Last 3 Months or Most Recently Relevant to Health Maintenance Results * (ABNORMAL) Basic metabolic panel (06/14/2023 1:49 PM APPLICATION SPEC) Glucose 79 70 - 99 mg/dL [facility] [...] [facility] - 01 Blood 06/14/2023 1:49 PM APPLICATION SPEC 06/14/2023 Narrative [facility] - 06/15/2023 9:11 AM APPLICATION SPEC Performed at: ?? - [facility] [address] ??[id number] Diamond Sizer And Sorter: Uday Morocho PhD, Phone: ??[phone] Specimen Comment: A courtesy copy of this report has been sent to [facility], Specimen Comment: [phone] Rey Pal MD LAB BLOOD ORDERABLES Fin al Result [facility] - 01 * POCT lipid panel [...] Most Recently Relevant to Health Maintenance Insurance AETNA MEDICARE MEDICARE MEDICARE Care Teams Instrumental Music Teacher Relationship Specialty Start Date End Date Lucio Oliveira MD PCP - General 07/02/19 Lucio Oliveira MD Family Medicine 07/02/19
== END 2024-08-27 13:48 | disposition home or self-care (01) ==
LOC: ANHIMG 13:52
PROVIDERS: PCP Family Medicine; Visit Provider Urology
DX: N20.0 Calculus of kidney (principal)
CPT/HCPCS: 74176

== ENCOUNTER 2024-09-08 00:20 | Observation (INO) | payer MEDICARE, SELFPAY ==
[2024-09-08] VITALS (96 sets, daily range): BP systolic 92–195; BP diastolic 38–123; PULSE 53–79; RESP 11–27; TEMP 36.9; O2SAT 91–100
--- NOTE | 2024-09-08 | ECHO_ITS ---
Patient Info Name: Danial Wilson Age: 78 years : 1945 Gender: Male Ht: 68 in Wt: 285 lbs BSA: 2.56 m2 HR: 71 bpm BP: 195 / 93 mmHg Heart Rhythm: Sinus Rhythm Technical Quality: Poor Exam Date: 09/08/2024 1:18 PM Exam Location: Echo Lab Patient Status: Inpatient Admit Date: 09/08/2024 Staff Ordering Physician: Nav Morejon MD ([facility]) Supervisor Plastering: Ciara Waite RDCS Attending Provider: Kendy Baugh MD Exam Type: CA echo dop color flow w con Study Info Indications R07.9 - Chest pain, unspecified Complete two-dimensional, color flow and Doppler transthoracic echocardiogram is performed with contrast to opacify the left ventricle and to improve the deliniation of the left ventricle endocardial borders. Contrast/Agitated Saline Contrast/Ag. Saline: Definity Amount: 3.00 ml Administered By: Ciara Waite RDCS Existing IV Access: Yes IV Access Condition: patent with no signs of infiltration Summary 1. The left ventricle is normal in size with hyperdynamic systolic function. The left ventricular ejection fraction is greater than 70%. There is normal diastolic function in this study. 2. The right ventricle is normal in size and systolic function. 3. There is no significant valvular disease in this study. 4. This is a technically difficult study limited views. Left Ventricle The left ventricle is normal in size and hyperdynamic systolic function. The left ventricular ejection fraction is visually estimated to be <70%. Right Ventricle The right ventricle is normal in size and systolic function. Left Atria The left atrium is normal size. Right Atria The right atrium is normal size. Aortic Valve There is no aortic stenosis by echo Doppler gradients. There is no aortic regurgitation. Pulmonic Valve The pulmonic valve is not well visualized. Mitral Valve The mitral valve is normal. There is no mitral regurgitation. Tricuspid Valve The tricuspid valve is grossly normal. There is trace tricuspid regurgitation. Pericardium/Pleural There is no pericardial effusion in the available views. Inferior Vena Cava There are no good subcostal views. Aorta The aortic root is not well visualized. Left Ventricular Outflow Tract Name Value Normal LVOT 2D LVOT Diameter 2.02 cm LVOT Doppler LVOT Peak Gradient 7 mmHg LVOT Mean Gradient 4 mmHg LVOT VTI 25.46 cm LVOT VTI/AV VTI Ratio 0.67 LVOT Stroke Volume 81.37 ml Pulmonic Valve Name Value Normal RVOT Doppler RVOT Peak Gradient 2 mmHg PV Doppler PV Peak Gradient 7 mmHg Mitral Valve Name Value Normal MV Doppler MV Decel [place] 273.34 cm/s2 MV PHT 0 s MV Area (PHT) 1.91 cm2 4.00-5.00 MV Diastolic Function MV E Peak Velocity 108.36 cm/s MV A Peak Velocity 111.18 cm/s MV E/A 0.97 MV Decel Time 0 s MV Annular TDI MV E/e' (Septal) 16.75 <=8.00 MV E/e' (Lateral) 13.16 <=8.00 MV E/e' (Average) 14.95 Tricuspid Valve Name Value Normal TV Regurgitation Doppler TR Peak Velocity 191.89 cm/s TR Peak Gradient 15 mmHg Estimated PAP/RSVP RA Pressure 10 mmHg <=5 PA Systolic Pressure 25 mmHg <36 RV Systolic Pressure 25 mmHg <36 Aorta Name Value Normal Ascending Aorta Ao Root Diameter (MM) 3.42 cm Ao Root Diam Index (MM) 1.34 cm/m2 Aortic Valve Name Value Normal AV Doppler AV Peak Velocity 193.94 cm/s AV Peak Gradient 15 mmHg AV Mean Gradient 9 mmHg AV VTI 38.03 cm AV Area (Cont Eq VTI) 2.14 cm2 >=3.00 AV Area (Cont Eq Gary) 2.13 cm2 AV Regurgitation 2D LVOT Area 3.20 cm2 Ventricles Name Value Normal LV Dimensions 2D/MM IVS Diastolic Thickness (2D) 1.22 cm 0.60-1.00 LVID Diastole (2D) 4.91 cm 4.20-5.80 LVIW Diastolic Thickness (2D) 1.17 cm 0.60-1.00 LVID Systole (2D) 3.46 cm 2.50-4.00 LVOT Diameter 2.02 cm LV Mass (2D Cubed) 225.61 g 88.00-224.00 LV Mass Index (2D Cubed) 0.01 g/cm2 0.00-0.01 Relative Wall Thickness (2D) 0.48 LV Fractional Shortening/Ejection Fraction 2D/MM LV Fractional Shortening (2D) 30 % 25-43 LV EF (2D Teicholz) 56 % 52-72 LV Diastolic Volume (4C MOD) 66.46 ml LV EF (4C MOD) 60 % LV Diastolic Volume (2C MOD) 64.80 ml LV EF (2C MOD) 60 % LV Diastolic Volume (BP MOD) 68.01 ml 62.00-150.00 LV Diastolic Volume Index (BP MOD) 0.03 l/m2 0.03-0.07 LV Systolic Volume (BP MOD) 26.00 ml 21.00-61.00 LV Systolic Volume Index (BP MOD) 0.01 l/m2 0.01-0.03 LV EF (BP MOD) 62 % 52-72 LV Diastolic Length (4C) 8.12 cm LV Systolic Length (4C) 6.67 cm LV Stroke Volume (4C MOD) 39.77 ml Atria Name Value Normal LA Dimensions LA Dimension (MM) 6.44 cm 3.00-4.10 LA Volume (4C A-L) 56.21 ml LA Volume (BP A-L) 73.31 ml RA Dimensions RA Area (4C) 16.08 cm2 <=18.00 Report Signatures
--- NOTE | ~2024-09-08 | XR_ITS ---
Portable chest x-ray Comparison: 02/09/2024 Clinical History: Chest pain Findings: There is central pulmonary venous congestive change. There is suggestion mild patchy airsp ramona disease, similar to prior exam. Cardiomediastinal silhouette is stable. Bones and soft tissues a re unremarkable. Impression: Mild patchy airspace disease, similar to prior exam. Correlate for chronic changes versus possibly mi ld pulmonary edema or infection. Mild central congestive change. Reviewed, dictated and finalized at location M. ET EXAMINER Impression: Mild patchy airspace disease, similar to prior exam. Correlate for chronic dunn ges versus possibly mild pulmonary edema or infection. Mild central congestive change.
--- OUTSIDE RECORDS SUMMARY | 2024-09-08 00:22 | XMS_ITS | Clinical Summary ---
Author Organization [address] Address [address] [place] [address] Care Team Providers Care Intake Manager Name Role Phone Lucio Oliveira MD Primary Care Provider Lucio Oliveira MD Unavailable [phone] Allergies Active Allergy Reactions Criticality Noted Date [...] II 08/09/2021 Coronary artery disease invo lving [place] coronary artery of [place] heart without angina pectoris 08/09/2021 Cough productive [...] 10/19/2017 Assessment & Plan (06/30/2019 1:54 PM MORTGAGE PROCESSING CLERK): He will try to get 30 minutes [...] elevator. Assessment & Plan (06/07/2018 1:52 PM MORTGAGE PROCESSING CLERK): Obesity is improving with lifestyle modifications. Discussed [...] hours. Assessment & Plan (06/30/2019 1:53 PM MORTGAGE PROCESSING CLERK): He will wear his VPAP auto nightly [...] set at 22/14 cm water pressure to [facility] for repair replace. Machine needs to be [...] titration. Assessment & Plan (06/07/2018 1:52 PM MORTGAGE PROCESSING CLERK): He will wear his bilevel machine nightly [...] bedtime. Assessment & Plan (06/07/2018 1:52 PM MORTGAGE PROCESSING CLERK): He will try to practice good sleep [...] bedtime. Assessment & Plan (06/30/2019 1:54 PM MORTGAGE PROCESSING CLERK): He will take clonazepam 2 mg every [...] Date Diagnosed Date Resolved Date Dilated cardiomyopathy ([facility] 11/03/2022 05/09/2023 Morbid obesity with BMI of [...] Type Department Care Team Description 07/11/2024 Telephone [facility] Cardiology at [address] [place] [phone] Heber Alvarado MD updated med list 07/10/2024 2:15 PM MORTGAGE PROCESSING CLERK Office Visit [facility] Cardiology at [address] [place] [phone] Heber Alvarado MD Typical atrial flutter (CMS/HCC) (HCC) (Primary Dx); Stage 3 chronic kidney disease, unspecified whether stage 3a or 3b CKD (HCC); Chronic heart failure with preserved ejection fraction (CMS/HCC) (HCC); KIRSTEN treated with BiPAP 06/20/[address] [address] Aundrea Wong MA Unsuccessful Phone Call 3 (MED ADHERENCE) 06/16/2024 Telephone [facility] Cardiology [address] [facility] [address] [place] [phone] Heber Alvarado MD samples 06/12/[address] [address] [place] Unsuccessful Phone Call 2 (Med adh) 06/10/[address] [address] [place] MA Unsuccessful Phone Call 1 [...] on file Legal Sex Male 2:18 AM MORTGAGE PROCESSING CLERK Gender Identity Not on file Sexual Orientation Not on file Obstetrics History Last Filed Vital Signs Vital Sign Reading Time Taken Comments Blood Pressure 148/88 07/10/2024 2:44 PM MORTGAGE PROCESSING CLERK Pulse 61 07/10/2024 2:44 PM MORTGAGE PROCESSING CLERK Temperature 36.3 C (97.3 F) 05/30/2021 12:52 PM CDT Respiratory Rate 16 08/09/2021 2:02 PM MORTGAGE PROCESSING CLERK Oxygen Saturation 96% 07/10/2024 2:44 PM MORTGAGE PROCESSING CLERK Inhaled Oxygen Concentration - - Weight 129.3 kg (285 lb) 07/10/2024 2:44 PM MORTGAGE PROCESSING CLERK Height 177.8 cm (5' 10 ) 07/10/2024 2:44 PM MORTGAGE PROCESSING CLERK Body Mass Index 40.89 07/10/2024 2:44 PM MORTGAGE PROCESSING CLERK Plan of Treatment Health Maintenance Due Date [...] BASIC METABOLIC PANEL Routine 06/14/2023 1:49 PM MORTGAGE PROCESSING CLERK Chronic heart failure with preserved ejection fraction (CMS/HCC) (HCC) Benign hypertension with CKD (chronic kidney disease), stage II H/O cardiomyopathy POCT LIPID PANEL Routine 11/03/2022 1:10 PM CDT Coronary artery disease involving [place] coronary artery of [place] heart without angina pectoris Mixed hyperlipidemia from Last 3 Months or Most Recently Relevant to Health Maintenance Results * (ABNORMAL) Basic metabolic panel (06/14/2023 1:49 PM MORTGAGE PROCESSING CLERK) Pathologist [facility] Glucose 79 70 - 99 mg/dL [facility] [...] [facility] - 01 Blood 06/14/2023 1:49 PM MORTGAGE PROCESSING CLERK 06/14/2023 Narrative [facility] - 06/15/2023 9:11 AM MORTGAGE PROCESSING CLERK Performed at: 01 - [facility] [address] [id number] Bleach Plant Operator: Uday Morocho PhD, Phone: [phone] Specimen Comment: A courtesy copy of this report has been sent to [facility], Specimen Comment: [phone] Rey Pal MD LAB BLOOD ORDERABLES Fin [...] Relevant to Health Maintenance Insurance [employer] MEDICARE Member Subscriber Plan / Payer (Ef fective 2018-Present) Name:Danial Wilson Member ID:[id number] Relation to Subscriber:Self Name:Danial Wilson Subscriber ID:[id number] Payer ID:1 ([facility]) Type:AETNA MEDICARE Address: [facility] [id number] [place] [phone] MEDICARE MEDICARE Care Teams Intake Manager Relationship Specialty Start Date End Date Lucio Oliveira MD PCP - General 07/02/19 Lucio Oliveira MD Family Medicine 07/02/19
--- OUTSIDE RECORDS SUMMARY | 2024-09-08 00:22 | XMS_ITS | Clinical Summary ---
Author Organization [facility] Address [address] [place] [address] Phone Care Team Providers Care Yard Switch Operator Name Role Phone Lucio Oliveira MD Primary Care Provider [phone] Allergies Active Allergy Reactions Criticality Noted Date [...] AM CDT Pulse - - Temperature 36.7 C (98.1 F) 05/11/2022 10:04 AM CDT Respiratory Rate 18 05/11/2022 10:04 AM CDT [...] Highest Risk Completed 08/07/2017, 07/07/2016 Care Teams Yard Switch Operator Relationship Specialty Start Date End Date Lucio Oliveira MD [address] [place] [phone] PCP - General Family Medicine 10/16/18
--- OUTSIDE RECORDS SUMMARY | 2024-09-08 00:22 | XMS_ITS | Clinical Summary ---
Author Organization [facility] Address [address] [place] [address] Phone Care Team Providers Care Insulation Cutter And Former Name Role Phone Lucoi Oliveira MD Primary Care Provider [phone] Allergies Active Allergy Reactions Criticality Noted Date [...] on file Legal Sex Male 5:39 AM STITCHER FEEDER Gender Identity Not on file Sexual Orientation Not on file Last Filed Vital Signs Vital Sign Reading Time Taken Comments Blood Pressure 185/91 12/12/2022 1:34 PM CDT Pulse 64 12/12/2022 1:30 PM CDT Temperature 36 C (96.8 F) 12/12/2022 1:30 PM CDT Respiratory Rate 10 [...] YEARS Completed 08/07/2017 , 07/07/2016 Insurance AETNA PPO [facility] Care Teams Insulation Cutter And Former Relationship Specialty Start Date End Date Lucio Oliveira MD [address] [place] [address] PCP - General Family Practice 10/21/18
--- OUTSIDE RECORDS SUMMARY | 2024-09-08 00:22 | XMS_ITS ---
Author Organization [facility] Address [address] [place] [address] [address] Care Team Providers Care Yard Cleaner Name Role Phone TAMMIE JOSEPH MD Primary Care Provider Unavail able Nancy Paige Unavailable [phone] GOKUL CARNEY Unavailable Unavailable REASON FOR VISIT Refill Medications Medication SIG (Take, Route, Fr equency, Duration) Notes Start Date End Date Status Sertraline HCl 25 MG 1 tablet Orally Onc e a day for 30 days 07/31/2024 Active Social History Sex Assigned At : Social History Observation Description Sex Assigned At Male Encounters Encounter Location Date Provider Diagnosis [facility] [place] [address] [facility] [address] [facility] [address] [place] [address] 07/31/2024 Nancy Paige Adjustment disorder with other [...] Details Provider Name:Nancy mccarty, 09/16/2024 01:00:00 PM, [address] [facility] [address], [facility] [address], [address], Progress Notes * Danial BOWEN ADOB:1945 (78 yo M)Acc No.[id number]:07/31/2024 Patient: Danial GOLDMAN :1945 A ge:78 Y S ex:Male Address:[facility] [address], [place], [address] * Refills Start Sertraline HCl Tablet, 25 MG, Orally, 30 Tablet, 1 tablet, Once a day, 30 days, Refills=1 Subjective: * Chief Complaints: * R efill * Medical History: * Surgical History: * Hospitalization/Major Diagno stic Procedure: * Medications: Objective: * Vitals: * Physical Examination: Assessment: * Assessment: 1. 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
--- OUTSIDE RECORDS SUMMARY | 2024-09-08 00:23 | XMS_ITS | Continuity of Care Document ---
Author Organization [facility] Address [address] [place] [address] Phone Care Team Providers Care Top Coater Name Role Phone Rebecca Rowland Unavailable Unavailable Procedures Procedure Date Eye Exam, New Patient Refraction Advance Directives Directive Yes / No Effective Date File Name No Information Encounters Encounter Description Practice Location Reason(s) For Visit Diagnoses Date Provider Providers Copied on Encounter [facility], [address], [place], [place], [id number], [place] tel:[phone] [facility] No Information 0-201 0 Janett Fernandez. [address] , [address], [place], [address], [place]. tel:[phone] Family History Family Member Type Diagnosis Age At Onset No Information Payers Payer name Insurance type Covered green party ID Authoryamilaa shereeneeraj(s) [employer] Plan [id number] Social History Type Description Quantity Date Captured [...]
--- OUTSIDE RECORDS SUMMARY | 2024-09-08 00:23 | XMS_ITS | Referral Summary ---
Author Organization [address] Address [address] [place] [address] Care Team Providers Care Entry Level Drafter Name Role Phone Lucio Oliveira MD Primary Care Provider [phone] Lucio Oliveira MD Unavailable Encounters Date Type Department Care Team Description 07/11/2024 Telephone [facility] Medical [facility] Cardiology at [address] [address] Heber Alvarado MD updated med list 07/10/2024 2:15 PM GAS USAGE METER CLERK Office Visit [facility] Medical [facility] Cardiology at [address] [address] Heber Alvarado MD Typical atrial flutter (CMS/HCC) (HCC) (Primary Dx); Stage 3 chronic kidney disease, unspecified whether stage 3a or 3b CKD (HCC); Chronic heart failure with preserved ejection fraction (CMS/HCC) (HCC); KIRSTEN treated with BiPAP 06/20/2024 Telephone [facility] [address] [address] Aundrea Wong MA Unsuccessful Phone Call 3 (MED ADHERENCE) 06/16/2024 Telephone [facility] Cardiology [address] [place] [address] Heber Alvarado MD samples 06/12/2024 Telephone [facility] Organization [address] [place] [address] Venice Whitfield MA Unsuccessful Phone Call 2 (Med adh) 06/10/2024 Telephone [facility] Organization [address] [place] [address] Venice Whitfield MA Unsuccessful Phone Call 1 [...] II 08/09/2021 Coronary artery disease invo lving tonto apache coronary artery of tonto apache heart without angina pectoris 08/09/2021 Cough productive [...] 10/19/2017 Assessment & Plan (06/30/2019 1:54 PM GAS USAGE METER CLERK): He will try to get 30 [...] elevator. Assessment & Plan (06/07/2018 1:52 PM GAS USAGE METER CLERK): Obesity is improving with lifestyle modifications. [...] hours. Assessment & Plan (06/30/2019 1:53 PM GAS USAGE METER CLERK): He will wear his VPAP auto [...] set at 22/14 cm water pressure to [facility] for repair replace. Machine needs to [...] titration. Assessment & Plan (06/07/2018 1:52 PM GAS USAGE METER CLERK): He will wear his bilevel machine [...] bedtime. Assessment & Plan (06/07/2018 1:52 PM GAS USAGE METER CLERK): He will try to practice good [...] bedtime. Assessment & Plan (06/30/2019 1:54 PM GAS USAGE METER CLERK): He will take clonazepam 2 mg [...] on file Legal Sex Male 2:18 AM GAS USAGE METER CLERK Gender Identity Not on file Sexual Orientation Not on file Last Filed Vital Signs Vital Sign Reading Time Taken Comments Blood Pressure 148/88 07/10/2024 2:44 PM GAS USAGE METER CLERK Pulse 61 07/10/2024 2:44 PM GAS USAGE METER CLERK Temperature 36.3 C (97.3 F) 05/30/2021 12:52 PM CDT Respiratory Rate 16 08/09/2021 2:02 PM GAS USAGE METER CLERK Oxygen Saturation 96% 07/10/2024 2:44 PM GAS USAGE METER CLERK Inhaled Oxygen Concentration - - Weight 129.3 kg (285 lb) 07/10/2024 2:44 PM GAS USAGE METER CLERK Height 177.8 cm (5' 10 ) 07/10/2024 2:44 PM GAS USAGE METER CLERK Body Mass Index 40.89 07/10/2024 2:44 PM GAS USAGE METER CLERK Plan of Treatment Not on file Procedures Procedure Name Priority Date/Time Associated Diagnosis Comments BASIC METABOLIC PANEL Routine 06/14/2023 1:49 PM GAS USAGE METER CLERK Chronic heart failure with preserved ejection fraction (CMS/HCC) (HCC) Benign hypertension with CKD (chronic kidney disease), stage II H/O cardiomyopathy POCT LIPID PANEL Routine 11/03/2022 1:10 PM CDT Coronary artery disease involving tonto apache coronary artery of t[place] apache heart without angina pectoris Mixed hyperlipidemia from Last 3 Months or Most Recently Relevant to Health Maintenance Results * (ABNORMAL) Basic metabolic panel (06/14/2023 1:49 PM GAS USAGE METER CLERK) [facility] Glucose 79 70 - 99 mg/dL [facility] [...] [facility] - 01 Blood 06/14/2023 1:49 PM GAS USAGE METER CLERK 06/14/2023 Narrative [facility] - 06/15/2023 9:11 AM GAS USAGE METER CLERK Performed at: [address] [place] [id number] Photographic Technician: Uday Morocho PhD, Phone: [phone] Specimen Comment: A courtesy copy of this report has been sent to [facility], Specimen Comment: [phone] Rey Pal MD LAB BLOOD ORDERABLES Fin al [facility] - 01 * POCT lipid panel [...] Most Recently Relevant to Health Maintenance Insurance T MEDICARE T MEDICARE AET MEDICARE Care Teams Entry Level Drafter Relationship Specialty Start Date End Date Lucio Oliveira MD PCP - General 07/02/19 Lucio Oliveira MD Family Medicine 07/02/19
--- OUTSIDE RECORDS SUMMARY | 2024-09-08 00:23 | XMS_ITS | CONTINUITY OF CARE DOCUMENT ---
Author Name lebron diana Address Unknown Organization [facility] Address [address] [facility] [address] [place] [address] Phone [phone] Care Team Providers Care Information Clerk Brokerage Name Role Phone Kaitlin GALVAN, Marco Unavailable SCHWMONA GANG BOSS, HAIR Unavailable SCHWIND GANG BOSS, HAIR Unavailable PROBLEMS Condition Status Date Provider Notes Other symptoms involving car diovascular system active Marco Madrigal MD HTN essential active Marco Madrigal MD SOB active Marco Madrigal MD Leg pain, bilateral active Marco Madrigal MD Polycythemia active Scotty Shultz MD Hypogonadism, low testosterone active Rob Shultz MD Hyperlipidemia active Marco Madrigal MD Gout active Marco Madrigal MD GERD active Marco Madrigal MD COPD active Marco Madrigal MD SLEEP APNEA active Marco Madrigal MD ENCOUNTERS Date Type Provider Location Encounter Diag nosis - In-person encounter Office Visit Marco Madrigal MD [facility] - In-person encounter Office Visit Scotty Shultz MD [facility] - In-person encounter Office Visit Scotty Shultz MD [facility] PolycythemiaHypogonadism, low testosterone - In-person encounter Office Visit Marco Madrigal MD [facility] - In-person encounter Office Visit Marco Madrigal MD [facility] Other symptoms involving cardiovascular systemSLEEP APNEACOPDHTN [...] mm[Hg] Saadia Turner pulse rate 76 /min Aleks Vanessa jerryneeraj oxygen saturation, oximetry 97 % [...] MG ORAL TABLET active ONE TAB. DAILY Alkes Bolivarenson FUROSEMIDE 20 MG ORAL TABLET active [...] Payer name Policy type / Coverage type [place] red libertarian ID AETNA MEDICARE Commercial insurance [employer] M [id number] ADVANCE DIRECTIVES Name Date DISCUSSED - NO [...] half. Orders: 9 9244 MOD C omplex (CPT-[id number]) Scotty Shultz MD Hem/Onc New Patient :The patient has had a relative polycythemia dating [...] blood work. Orders: E rythropoietin (EPO), Serum (674228) J AK2 V617F Rfx/Exon 12 (160668) C BC (INCLUDES DIFF/PLT) (6399) U RINALYSIS, COMPLETE (5463) 9 9244 MOD C omplex (CPT-[id number]) Scotty Shultz MD Cardiology:Refer to Dr. Shultz because high hemoglobin level. Marco Madrigal MD Cardiology Marco Madrigal MD Cardiology Marco Madrigal MD Cardiology [...] Name Provider Procedure Notes S tatus SNOMED-CT: 67203324 Physical Exam, Performed: Pulse Exam of Foot Marco Madrigal MD completed EKG Marco Madrigal MD completed SNOMED-CT: 988467044 017541 Current Medications Documented Marco Madrigal MD completed SNOMED-CT: 094609997 347050 Current Medications Documented Scotty Shultz MD completed SNOMED-CT: 659022566 387375 Current Medications Documented Scotty Shultz MD completed SNOMED-CT: 28313673 Physical Exam, Performed: Pulse Exam of Foot Marco Madrigal MD completed SNOMED-CT: 102033264 394947 Current Medications Documented Marco Madrigal MD completed Stress EKG Abi Reed MD completed Regadenoson, 4 units Marco Madrigal MD completed Cardiolite, 2 units Marco Madrigal MD completed SPECT Images Abi Reed MD complet ed SNOMED-CT: 05339924 Physical Exam, Performed: Pulse Exam of Foot Marco Madrigal MD completed SNOMED-CT: 133446059 379592 Current Medications Documented Marco Madrigal MD completed
--- OUTSIDE RECORDS SUMMARY | 2024-09-08 00:23 | XMS_ITS | Encounter Summary ---
Author Organization [facility] Healthcare Address [address] [place] [address] Care Team Providers Care Entry Level Manufacturing Engineer Name Role Phone Lucio Oliveira MD Primary Care Provider [phone] Lucio Oliveira MD Unavailable [phone] Encounter Details Date Type Department Care Team (Late st Contact Info) Description 12/21/[address] [facility] Health Information Management [address] [place] [address] Scanning, Provider Social History Tobacco Use Types Packs/Day Years Used Date Smoking Tobacco: Never Alcohol Use Standard Drinks/Week Comments No 0 (1 standard drink = 0.6 oz pur e alcohol) Sex and Gender Information Value Date Recorded Sex Assigned at Not on file Legal Sex Male 2:18 AM DIGITAL MEDIA STRATEGIST Gender Identity Not on file Sexual Orientation [...] on filedocumented in this encounter Care Teams Entry Level Manufacturing Engineer Relationship Specialty Start Date End Date Lucio Oliveira MD PCP - General 07/02/19 Lucio Oliveira MD Family Medicine 07/02/19 documented as of this encounter
--- NOTE | 2024-09-08 00:25 | ECG_ITS ---
Test Date: 2024-09-08 00:28:13 Measurements Intervals [place] Rate: 62 P: -25 IN: 144 QRS: -55 QRSD: 157 T: 38 QT: 453 QTc: 461 Interpretive Statements SINUS RHYTHM WITH OCCASIONAL VENTRICULAR PREMATURE COMPLEXES RIGHT BUNDLE BRANCH BLOCK LEFT ANTERIOR FASCICULAR BLOCK LEFT VENTRICULAR HYPERTROPHY CANNOT R/O SEPTAL INFARCT, AGE INDETERMINATE BASELINE ARTIFACT- I, II, III, AVR, AVL, AVF, V1-V6 ABNORMAL ECG Compared to ECG 02/11/2024 10:02:33 HEART RATE HAS INCREASED Electronically Signed On 09-08-2024 06:25:39 ASSOCIATE VICE PRESIDENT by Stoney Dodd D.O.
[2024-09-08] MEDS: ASPIRIN 81 MG CHEWABLE TABLET 324 MG PO (00:35)
--- OUTSIDE RECORDS SUMMARY | 2024-09-08 00:36 | XMS_ITS | Patient Health Record ---
Author Organization [facility] [employer] Address [address] [place] [address] Care Team Providers Care Pharmacy Grad Intern Name Role Phone TAMMIE JOSEPH MD Primary Care Provider Unavail able Nancy Paige Unavailable [phone] GOKUL CARNEY Unavailable Unavailable Anastasia Sweeney Unavailable [phone] Allergies Allergen (clinical drug ingredient) Drug/Non Drug [...] Oxazepam (BZO) n 0 - 300 ng/ml 9-paveiztend-1,1-ojelvtle-1,3-diphenylpyrrolidine (AKBAR P) n 0 - 300 ng/ml Methamphetamine (MET) n 0 - 1000 ng/ml Methylenedioxymethamphetamine (MDMA) n 0 - 500 ng/ml Morphine (MOP 300/XDY1414) n 0 - 300 ng/ml Methadone (MTD) [...] DAILY Oral for 90 Days Not-Taking Ipratropium [place] 0.02 % INHALE 1 VIAL IN NEBULIZER [...] Tobacco use: Nonsmoker Section Notes: Lives in [place] with w hussein of 56 yrs, 2 kids. Grew up [place]. 6 siblings. Education/employment: Retired, worked at [employer] for 33 yrs, then worked at [employer]. service: 4 yrs [employer]. Lives in [place] with w hussein of 56 yrs, 2 kids. Grew up [place]. 6 siblings. Education/employment: Retired, worked at [employer] for 33 yrs, then worked at [employer]. service: 4 yrs [employer]. Problems Problem Type SNOMED Code ICD Code Onset Dates Problem Status W/U Status Risk Notes Problem Chronic insomnia (211824398) Chronic insomnia (F51.04) Active confirmed Problem 30234641 Adjustment disorder with other symptom (F43.29) Active confirmed Problem Obstructive sleep apnea syndrome (02745644) KIRSTEN treated with BiPAP (G47.33) Active confirmed Vital Signs Heart Rate 61 /min 07/18/2024 Height-cm 172.72 cm 07/18/2024 Blood pressure diastolic 56 mm Hg 07/18/2024 Weight-kg 127.91 kg 07/18/2024 Height 68 in 07/18/2024 Blood pressure systolic 148 mm Hg 07/18/2024 Weight 282.0 lbs 07/18/2024 BMI 42.87 kg/m2 07/18/2024 Encounters Encounter Location Date Provider Diagnosis [facility] [address] [facility] [address] [address] 03/21/2024 Anastasia Woloszynek Adjustment disorder with other symptom F43.29 ; Chronic insomnia F51.04 and KIRSTEN treated with BiPAP G47.33 [facility] [address] [facility] [address] [address] 04/18/2024 Anastasia Woloszynek Adjustment disorder with other symptom F43.29 ; Chronic insomnia F51.04 and KIRSTEN treated with BiPAP G47.33 [facility] [address] [facility] [address] [address] 07/18/2024 Nancy Paige Adjustment disorder with other symptom F43.29 ; Chronic insomnia F51.04 and KIRSTEN treated with BiPAP G47.33 [facility] [address] [facility] [address] [address] 07/31/2024 Nancy Paige Adjustment disorder with other [...] Details Provider Name:Nancy mccarty, 09/16/2024 01:00:00 PM, [address], [place], [address], Insurance Providers Payer Name Payer Address Payer Phone Subscriber Number Group Number Insured Name Patient Relationship to Insured Coverage Start Date Coverage End Date Aetna [address] ABIGAIL SANTOS [phone] [id number] Danial Wilson Self - patient is the [...]
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
--- OUTSIDE RECORDS SUMMARY | 2024-09-08 00:36 | XMS_ITS | Continuity of Care Document ---
Author Organization [facility] Address [address] [place] [address] Phone Care Team Providers Care Claim Rep Name Role Phone Rebecca Rowland Unavailable Unavailable Procedures Procedure Date Eye Exam, New Patient Refraction Advance Directives Directive Yes / No Effective Date File Name No Information Encounters Encounter Description Practice Location Reason(s) For Visit Diagnoses Date Provider Providers Copied on Encounter [facility], [address], [place], [place], [id number], [place] tel:[phone] [facility] No Information [phone] Janett Fernandez. [address] , [address], [place], [address], [place]. tel:[phone] Family History Family Member Type Diagnosis Age At Onset No Information Payers Payer name Insurance type Covered libertarian ID Authoryamilaa shereeneeraj(s) [employer] Vision Plan [id number] Social History Type Description Quantity Date Captured [...]
--- OUTSIDE RECORDS SUMMARY | 2024-09-08 00:36 | XMS_ITS | Encounter Summary ---
Author Organization [facility] Address [address] [place] [address] Care Team Providers Care Magneto Specialist Name Role Phone Lucio Oliveira MD Primary Care Provider [phone] Encounter Details Date Type Department Care Team (Latest Contact Info) Description 12/18/2008 Outpatient Historical HIS [facility] BRUNILDA Palacios, MD Pool NO ADDRESS ON FILE Other Degenerative Diseases of the Basal Ganglia Social History Tobacco Use Types Packs/Day Years Used Date Smoking Tobacco: Never Alcohol Use Standard Drinks/Week Comments No 0 (1 standard drink = 0.6 oz pur e alcohol) Sex and Gender Information Value Date Recorded Sex Assigned at Not on file 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 Gender Identity Not on file Sexual [...] TOTAL PROTEIN 6.9 6.3 - 8.6 g/dL [facility] POTASSIUM 4.6 3.5 - 4.9 mmol/L [facility] GLUCOSE 74 65 - 99 mg/dL [facility] AST 29 12 - 38 U/L [facility] BUN 15 6 - 20 mg/dL [facility] CALCIUM 9.6 8.6 - 10.2 mg/dL [facility] CHLORIDE 101 96 - 108 mmol/L [facility] ALBUMIN 4.2 3.4 - 4.8 g/dL [facility] CREATININE 1.12 0.67 - 1.17 mg/dL [facility] SODIUM 138 135 - 145 mmol/L [facility] ALT 31 0 - 41 U/L [facility] ALKALINE PHOSPHATASE 75 40 - 129 U/L [facility] BILIRUBIN TOTAL 0.5 0.2 - 1.0 mg/dL [facility] CO2 27 22 - 30 mmol/L [facility] GFR, >60 >=60 mL/min/1.7 sq meter [facility] GFR >60 >=60 mL/min/1.7 sq meter [facility] Comment: Modification of Diet in Renal Disease (MDRD) study formula. Estimated GFR rate interpretative information for both Americans and non- Americans is available on the [facility] Intranet at: [email or web address] Select: Lab Policies and Procedures Select: Reference Ranges - GFR 12/18/2008 1:49 PM CDT 12/18/2008 3:00 PM CDT us Pool Palacios MD CHEMISTRY ORDERABLES Edited INTERFACE SYSTEM Refer to clinic/hospital department [facility] CLIA# [id number] [address] [place] [address] * (ABNORMAL) CBC WITH DIFFERENTIAL (12/18/2008 1:49 PM CDT) MCV 100.8(H) 82.0 - 99.0 fL [facility] PLATELETS 245 140 - 350 K/uL [facility] HEMOGLOBIN 17.1(H) 13.6 - 16.5 g/dL [facility] RDW 13.8 11.5 - 14.5 % [facility] WBC 6.5 4.0 - 9.8 K/uL [facility] MCH 34.5(H) 27.2 - 32.6 pg [facility] MPV 11.3 9.3 - 12.4 fL [facility] HEMATOCRIT 50.0(H) 40.0 - 48.0 % [facility] RDW-STDEV 50.9(H) 37.1 - 48.7 fL [facility] RBC 4.96 4.50 - 5.40 M/uL [facility] MCHC 34.2 31.5 - 35.5 % [facility] NEUTROPHILS 60 45 - 70 % [facility] NEUTROPHIL ABSOLUTE 3.88 1.90 - 7.00 K/uL [facility] EOSINOPHILS 3 0 - 7 % [facility] EOSINOPHIL ABSOLUTE 0.19 0.00 - 0.70 K/uL [facility] LYMPHOCYTES 27 16 - 45 % [facility] LYMPHOCYTE ABSOLUTE 1.76 0.70 - 4.50 K/uL [facility] BASOPHILS 1 0 - 2 % [facility] BASOPHILS ABSOLUTE 0.06 0.00 - 0.20 K/uL [facility] MONOCYTES 9 3 - 13 % [facility] MONOCYTE ABSOLUTE 0.59 0.10 - 1.30 K/uL [facility] 12/18/2008 1:49 PM CDT 12/18/2008 3:01 PM CDT us Pool Palacios MD HEMATOLOGY ORDERABLES Edited INTERFACE SYSTEM Refer to clinic/hospital department [facility] CLIA# [id number] [address] [place] [place] [address] documented in this encounter Visit Diagnoses Diagnosis Other degenerative diseases of the basal ganglia documented in this encounter Care Teams Magneto Specialist Relationship Specialty Start Date End Date Lucio Oliveira MD [address] [place] [address] PCP - General Family Practice 10/21/18 documented as of this encounter
--- OUTSIDE RECORDS SUMMARY | 2024-09-08 00:36 | XMS_ITS | CONTINUITY OF CARE DOCUMENT ---
Author Name lebron diana Address Unknown Organization [facility] Address [address] [place] [address] Phone [phone] Care Team Providers Care Water Pump Assembler Name Role Phone Kaitlin GALVAN, Marco Unavailable [phone] SCHWMONA FURNITURE SERVICER, HAIR Unavailable [phone] SCHWIND FURNITURE SERVICER, HAIR Unavailable PROBLEMS Condition Status Date Provider [...] In-person encounter Office Visit Marco Madrigal MD [facility] - In-person encounter Office Visit Scotty Shultz MD [facility] - In-person encounter Office Visit Scotty Shultz MD [facility] PolycythemiaHypogonadism, low testosterone - In-person encounter Office Visit Marco Madrigal MD [facility] - In-person encounter Office Visit Marco Madrigal MD [facility] Other symptoms involving cardiovascular systemSLEEP APNEACOPDHTN [...] Payer name Policy type / Coverage type [place] red republican ID AETNA MEDICARE 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 Orders: 9 9244 MOD C omplex (CPT-10448) Scotty Shultz MD Hem/Onc New Patient: The [...] blood work. Orders: E rythropoietin (EPO), Serum (593605) J AK2 V617F Rfx/Exon 12 (727069) C BC (INCLUDES DIFF/PLT) (6399) U RINALYSIS, COMPLETE (5463) 9 9244 MOD C [facility]plex (CPT-98462) Scotty Shultz MD Cardiology:Refer to Dr. Shultz [...] Name Provider Procedure Notes S tatus SNOMED-CT: 28602987 Physical Exam, Performed: Pulse Exam of Foot Marco Madrigal MD completed EKG Marco Madrigal MD completed SNOMED-CT: 748001346 538614 Current Medications Documented Marco Madrigal MD completed SNOMED-CT: 039448990 656185 Current Medications Documented Scotty Shultz MD completed SNOMED-CT: 419166631 390387 Current Medications Documented Scotty Shultz MD completed SNOMED-CT: 80044792 Physical Exam, Performed: Pulse Exam of Foot Marco Madrigal MD completed SNOMED-CT: 733881521 825721 Current Medications Documented Marco Madrigal MD completed Stress EKG Abi Reed MD completed Regadenoson, 4 units Marco Madrigal MD completed Cardiolite, 2 units Marco Madrigal MD completed SPECT Images Abi Reed MD complet ed SNOMED-CT: 68333557 Physical Exam, Performed: Pulse Exam of Foot Marco Madrigal MD completed SNOMED-CT: 591734481 322895 Current Medications Documented Marco Madrigal MD completed
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
--- NOTE | 2024-09-08 00:42 | ED.CHESTPAIN ---
HPI - Chest Pain General Chief Complaint: Chest Pain Stated Complaint: chest pain Time Seen by Provider: 09/08/24 00:27 Source: patient, family and RN notes reviewed Mode of arrival: EMS Limitations: no limitations History of Present Illness HPI narrative: Patient presents with report of chest pain/tightness as well as associated shortness of breath. He has not been feeling well for the past few days but this started acutely tonight and was somewhat different. Associated with this episode he felt nauseated but did not vomit. He was noted to be diaphoretic. For his COPD at baseline he is on oxygen at nighttime. He denies any lower extremity edema. He states that his arms feel weird. He states this has never happened before. He does follow with pattern finisher Dr. Castellanos but is not due to see him until December. He denies any history of CHF. He does have a chronic cough with his COPD but states there have been no acute changes with this. He has been having subjective fevers and chills. He feels like his face is on fire. He is on Eliquis chronically although he is unclear why (denies history of stents, valve replacement, atrial fibrillation, DVT/PE, etc.) and does state that he has been taking it regularly without missing any doses. Cardiac risk factors: Hypertension + ; hyperlipidemia +; no diabetes mellitus, obesity +; nonsmoker. Denies previous myocardial infarction, TIA or CVA. Positive family history [place] <65 yo. Related Data Home Medications ?Medication ?Instructions ?Recorded ?Confirmed ?Last Taken ?Type multivitamin (Multiple Vitamins 1 tablet PO DAILY 05/30/19 05/22/24 02/09/24 History tablet) cholecalciferol (vitamin D3) 100 4,000 unit PO DAILY 04/18/21 05/22/24 02/09/24 History mcg (4,000 unit) capsule (Vitamin D3) lysine HCl 1,000 mg tablet 1,000 mg PO DAILY 10/01/23 05/22/24 02/09/24 History apixaban 5 mg tablet (Eliquis) 5 mg PO BID 12/21/23 05/22/24 02/09/24 History aspirin 81 mg tablet,delayed 81 mg PO DAILY 12/21/23 05/22/24 02/09/24 History release (Adult Low Dose Aspirin) sacubitril 49 mg-valsartan 51 mg 1 tablet PO BID 02/11/24 05/22/24 Unknown History tablet (Entresto) empagliflozin 10 mg tablet 10 mg PO DAILY 03/24/24 05/22/24 Unknown History (Jardiance) spironolactone 25 mg tablet 25 mg PO DAILY 03/24/24 05/22/24 Unknown History Allergies Allergy/AdvReac Type Severity Reaction Status Date / Time codeine AdvReac Mild CONSTIPATIO Verified 09/08/24 00:31 N methylprednisolone AdvReac Mild Vomiting Verified 09/08/24 00:31 prednisone AdvReac Unknown Vomiting Verified 09/08/24 00:31 [facility] Past Medical History Medical History Obstructive sleep apnea Peripheral vascular disease Peripheral neuropathy Shortness of breath Chronic anticoagulation Ataxia Lumbar spondylosis Atrial fibrillation Diagnosed 01/2022 Atrial flutter Diagnosis 06/2022. Diastolic heart failure BMI greater than 40 Chronic anemia Ulcerative colitis Pulmonary embolism (08/2018) Secondary erythrocytosis Related to COPD and obstructive sleep apnea. Previously received therapeutic phlebotomy. Tubulovillous adenoma of colon Overactive bladder Benign prostatic hyperplasia Hypertension Gastroesophageal reflux disease Chronic obstructive pulmonary disease Compression fx, thoracic spine Low serum vitamin D Anxiety Hyperlipidemia Surgical History Surgical History History of bilateral cataract extraction History of cardiac catheterization History of cardioversion History of colonoscopy with polypectomy History of cystoscopy History of decompression of ulnar nerve Left elbow. History of dental surgery History of esophageal dilatation History of extraction of renal calculus History of prostatectomy History of right hemicolectomy (06/10/19) Benign tubulovillous adenoma. History of transurethral resection of prostate Family History Family History Father Hypertension Malignant neoplasm of prostate Sibling Diabetes mellitus Family history of cardiovascular disease Malignant neoplasm of prostate Hypertension Heart disease Mother Family history of rheumatic fever Heart disease Asthma Acute myocardial infarction, Onset Age: 53 Sibling Cancer Heart transplant recipient Other Family history of coronary artery disease Family history of lung cancer Social History Social History Social History: Surrogate decision maker: Akua Wilson, spouse. Code status: Do not resuscitate. 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 Spiritual care concerns: No Exam Narrative: GENERAL: Well-appearing, well-nourished, and in no acute distress although appears uncomfortable HEAD: Normocephalic, atraumatic. EYES: Non injected, non icteric ENT: Nares clear, no rhinorrhea or epistaxis. NECK: Supple. CHEST: Tachypneic but able to speak in multi word sentences. Poor air movement throughout bilaterally which makes it difficult to appreciate any crackles or wheezes. HEART: Regular rate and rhythm. . ABDOMEN: Soft, nondistended. EXTREMITIES: Normal range of motion. No bilateral lower extremity edema. SKIN: Warm, dry, no rash. No longer diaphoretic but face is mildly flushed. NEURO: No focal deficits. Alert and oriented x3. PSYCH: Normal mood and affect. Course Vital Signs Vital signs: Vital Signs Pulse Rate 64 09/08/24 00:26 Respiratory Rate 18 09/08/24 00:26 Pulse Oximetry 95 09/08/24 00:26 Temperature 98.4 F 09/08/24 00:27 Pulse Rate 76 09/08/24 08:40 Respiratory Rate 20 09/08/24 08:40 Blood Pressure 149/70 H 09/08/24 07:54 Pulse Oximetry 99 09/08/24 07:54 Oxygen Delivery Room Air 09/08/24 00:31 MDM - Chest Pain MDM Narrative Medical decision making narrative: Patient presents with report of chest tightness/pain as well as dyspnea. He has not been feeling well over the past several days but notes that this was a somewhat acute worsening that has never happened before. This episode was associated with nausea as well as diaphoresis any states that his arms feel weird. He has a history of COPD on supplemental oxygen at home at night. In the emergency department he is afebrile with vital signs notable for mild tachypnea as well as hypertension. HEART SCORE History 2 highly suspicious 1 moderately suspicious 0 slightly suspicious History score [address] depression/elevation not due to LBBB, LVH, or digoxin [address] depression but LBBB, LVH, nonspecific repolarization changes 0 normal ECG score 1 Age 2 >/= 65 1 45-64 0 <45 Age score 2 Risk factors (HTN, hypercholesterolemia, DM, obesity with BMI >30, current smoker or cessation </=3mo), positive fam hx with parent or sibling with CVD before age 65, atherosclerotic disease (prior [place], PCI/CABG, CVA/TIA, or peripheral arterial disease) 2 >/= 3 risk factors or history of atherosclerotic dz 1 - 1-2 risk factors 0 no known risk factors Risk factor score 2 (HTN, HLD, obese, fam hx) Initial Troponin 2 >3 times normal limit 1 1-3 times normal limit 0 less than or equal to normal limit Troponin score 0 Total HEART Score 6 Patient has poor air movement and is tachypneic on exam. No appreciable wheezes but with the poor air movement history of COPD, will give DuoNeb and reassess. Will defer obtaining dimer as patient is chronically anticoagulated on Eliquis (though he is unclear why). Past medical history is reviewed and does show that he had a diagnosis of atrial fibrillation previously. Patient had also denied a history of heart failure however per review of EMR it does appear he has diastolic heart failure. Will also give nitro to see how he responds, especially since concern for cardiac etiology. Isolated elevated alkaline phosphatase. Chest x-ray concerning for pneumonia as described below given the infiltrates. Ceftriaxone azithromycin are ordered. He states that the 2nd dose nitroglycerin helped his chest pain as did the dose of morphine. This, along with his presentation, continues to raise concern for cardiac etiology, in particular unstable angina. He continues to have wheezing on exam. Another albuterol treatment is ordered. I suspect that he has a concomitant COPD exacerbation but he lists an allergy to prednisone and methylprednisolone. Magnesium ordered 2g. 2nd troponin essentially flat but recommend admission for high heart score and other diagnoses. Patient expresses his desire for CPR and mechanical ventilation to be attempted in the event of cardiopulmonary arrest. Spoke with recreation facility manager hospitalist Dr Kaur. Patient will be IMU admission given HEART score. 6 hour troponin to be obtained as patient experiencing symptoms again. Differential Diagnosis Differential diagnosis: Likely stable angina, unstable angina pectoris, atypical chest pain, st elevation myocardial infarction, chest pain, biliary colic and other (COPD exacerbation, heart failure exacerbation, acute viral syndrome/influenza/COVID; pulmonary hypertension) Lab Data Attestation: I reviewed the patient's lab results. 09/08/24 00:37 09/08/24 00:37 Labs: Lab Results 09/08/24 09/08/24 09/08/24 Range/Units 00:37 01:53 03:45 WBC 9.6 (4.5-10.0) K/mm3 RBC 4.84 (4.6-6.20) M/mm3 Hgb 15.2 (14.0-18.0) g/dL Hct 46.2 (42.0-52.0) % MCV 95.5 (80-100) fl MCH 31.4 (26-34) pg MCHC 32.9 (32-36) g/dl RDW 14.2 (11.5-14.5) % Plt Count 297 (150-375) k/mm3 MPV 10.4 (7.4-10.4) fl Immature Gran % (Auto) 0.5 (0-0.5) % Neut % (Auto) 64.9 (45.5-73.1) % Lymph % (Auto) 23.0 (18.3-44.2) % [place] % (Auto) 8.2 (2.6-8.5) % Eos % (Auto) 2.4 (0-4.4) % Baso % (Auto) 1.0 (0.2-1.2) % Lymph # (Auto) 2.22 (0.9-3.2) K/mm3 [place] # (Auto) 0.8 H (0.1-0.6) K/mm3 Eos # (Auto) 0.2 (0-0.3) K/mm3 Baso # (Auto) 0.1 (0.0-0.1) K/mm3 Abs Immat Gran (auto) 0.05 H (0.00-0.031) K/mm3 Absolute Neuts (auto) 6.3 (1.3-6.7) K/mm3 Absolute Nucleated RBC 0.000 (0.0-0.012) K/mm3 Nucleated RBC % 0.0 (0.0-0.2) % PT 14.4 (11.1-14.7) Seconds INR 1.1 APTT 30.6 (22.3-36.8) Seconds Sodium 139 (137-145) mmol/L Potassium 3.7 (3.4-5.0) mmol/L Chloride 105 (98-107) mmol/L Carbon Dioxide 24 (22-30) mmol/L Anion Gap 10 (4-12) mmol/L BUN 14 (9-20) mg/dL Creatinine 1.00 (0.7-1.3) mg/dL Estim Creat Clear Calc 69 ml/min Estimated GFR > 60 (59 - ) Glucose 110 (65-110) mg/dL Calcium 9.5 (8.4-10.2) mg/dL Magnesium 2.2 (1.6-2.3) mg/dL Total Bilirubin 0.8 (0.2-1.3) mg/dL AST 26 (17-59) U/L ALT 17 (6-50) U/L Alkaline Phosphatase 149 H (38-126) U/L Troponin I 0.016 0.015 (0.000-0.034) ng/mL NT-Pro-B Natriuret Pep 346 H (19.9-100) pg/mL Total Protein 7.0 (6.3-8.2) g/dL Albumin 3.7 (3.5-5.1) g/dL Lipase 72 (23-300) U/L Urine Color Yellow (Yellow) Urine Appearance Clear (Clear) Urine pH 5.0 (5.0-9.0) Ur Specific [place] 1.028 (1.001-1.035) Urine Protein 1+ H (Negative) mg/dL Urine Glucose (UA) 3+ H (Negative) mg/dL Urine Ketones Trace H (Negative) mg/dL Ur Blood (Man) 1+ H (Negative) Urine Nitrate Negative (Negative) Urine Bilirubin Negative (Negative) Urine Urobilinogen 0.2 (<2.0) mg/dL Leukocyte Esterase Rfl Negative (Negative) ЕКАТЕРИНА/UL Urine RBC 0-2 (0-2) /hpf Urine WBC 0-5 (0-3) /hpf Ur Squamous Epith Cells None seen (Few) /hpf Urine Bacteria None seen /hpf Urine Casts 0-2 Influenza A (RT-PCR) Negative (Negative) Influenza B (RT-PCR) Negative (Negative) RSV (RT-PCR) Negative (Negative) SARS-CoV-2 RNA (RT-PCR) Negative (Negative) Imaging Data Attestation: I personally reviewed and interpreted this imaging study as follows: My impression: Elevated R hemidiapharagm with opacities Radiologist's impression: CXR Stat Rad: Extensive bronchitis with increased interstitial opacities in the lower lobes and patchy opacity in the right upper and right lower lobes concerning for infiltrates. Low lung volumes. ECG Data EKG #1: Attestation: I personally reviewed and interpreted this ECG as follows: ECG completion date: 09/08/24 ECG completion time: 00:28 Prior ECG tracings: available for review (02/11/2024 also had left anterior fascicular block and right bundle-branch block) Interpretation: Normal sinus rhythm at a rate of 62 beats per minute. SC interval 144, QRS 157, QT/QTC 453/458. There are occasional PVCs. RBBB given QRS greater [id number]; RSR' M-shaped pattern in V1-V3; wide, slurred S wave in lateral leads (I, aVL, V5-6). Left anterior fascicular block with rS complexes in leads II, III, aVF (small R waves, deep S waves), qR complexes in lead I , avL (small Q waves and tall R waves) and left axis deviation with Leads II, III and aVF negative and leads I and aVL positive. Pre populated algorithm suggests left ventricular hypertrophy but S wave depth in V1 + tallest R wave height in V5-6 is <35mm ; however R wave in lead I + S wave in lead III is >25mm. EKG #2: Attestation: I personally reviewed and interpreted this ECG as follows: ECG completion date: 09/08/24 ECG completion time: 03:52 Interpretation: Normal sinus rhythm at a rate of 63 beats per minute. SC interval 151. QRS 150. QT/QTC 465/473. RBBB given QRS greater [id number]; RSR' M-shaped pattern in V1-V3; wide, slurred S wave in lateral leads (I, aVL, V5-6). Left anterior fascicular block with rS complexes in leads II, III, aVF (small R waves, deep S waves), qR complexes in lead I , avL (small Q waves and tall R waves) and left axis deviation with Leads II, III and aVF negative and leads I and aVL positive. Poor R-wave progression across the precordial leads. Discharge Plan Discharge Clinical Impression: Left anterior fascicular block (LAFB) determined by electrocardiography, Right bundle branch block (RBBB), Opacities of both lungs present on chest x-ray, COPD exacerbation, Chest pain Patient Disposition: Still a Patient Condition: Stable
[2024-09-08 00:54] LABS: INR 1.1; Prothrombin Time 14.4 Seconds (11.1-14.7)
[2024-09-08 00:55] LABS: Partial Thromboplastin Time 30.6 Seconds (22.3-36.8)
[2024-09-08 01:00] LABS: Basophils Absolute Auto 0.1 K/mm3 (0.0-0.1); Eosinophils Absolute Auto 0.2 K/mm3 (0-0.3); Eosinophils Percent Auto 2.4 % (0-4.4); Hematocrit 46.2 % (42.0-52.0); Hemoglobin 15.2 g/dL (14.0-18.0); Immature Granulocyte Absolute 0.05 K/mm3 (0.00-0.031); Immature Granulocyte Percent A 0.5 % (0-0.5); Lymphocytes Absolute Auto 2.22 K/mm3 (0.9-3.2); Mean Corpuscular HGB Conc 32.9 g/dl (32-36); Mean Corpuscular Hemoglobin 31.4 pg (26-34); Mean Corpuscular Volume 95.5 fl (80-100); Mean Platelet Volume 10.4 fl (7.4-10.4); Monocytes Absolute Auto 0.8 K/mm3 (0.1-0.6); Monocytes Percent Auto 8.2 % (2.6-8.5); Neutrophils Absolute Auto 6.3 K/mm3 (1.3-6.7); Neutrophils Percent Auto 64.9 % (45.5-73.1); Platelet Count Result 297 k/mm3 (150-375); Red Blood Count 4.84 M/mm3 (4.6-6.20); Red Cell Distribution Width 14.2 % (11.5-14.5); White Blood Count 9.6 K/mm3 (4.5-10.0)
[2024-09-08] MEDS: IPRATROPIUM 0.5 MG/ALBUTEROL SULFATE 2.5 MG AMPUL.NEB 3 ML INHALATION (01:00)
[2024-09-08 01:04] LABS: Alanine Aminotransferase 17 U/L (6-50); Albumin Level 3.7 g/dL (3.5-5.1); Alkaline Phosphatase 149 U/L (38-126); Anion Gap 10 mmol/L (4-12); Aspartate Amino Transferase 26 U/L (17-59); Bilirubin,Total 0.8 mg/dL (0.2-1.3); Blood Urea Nitrogen 14 mg/dL (9-20); Calcium 9.5 mg/dL (8.4-10.2); Carbon Dioxide 24 mmol/L (22-30); Chloride 105 mmol/L (98-107); Estimated CRCL calculation 69 ml/min; Estimated Glomerular Filt Rate > 60; Glucose 110 mg/dL (65-110); Lipase 72 U/L (23-300); Potassium 3.7 mmol/L (3.4-5.0); Sodium 139 mmol/L (137-145)
[2024-09-08 01:15] LABS: Troponin I 0.016 ng/mL (0.000-0.034)
[2024-09-08 02:01] LABS: NT Pro B Type Natriuretic Pept 346 pg/mL (19.9-100)
[2024-09-08 02:05] LABS: Add Urine Microscopic? YES; Appearance Urine Clear (Clear); Bacteria Urine None Seen /hpf; Bilirubin Urine Negative (Negative); Blood Urine 1+ (Negative); Color Urine Yellow (Yellow); Glucose Urine UA 3+ mg/dL (Negative); Ketones Urine Trace mg/dL (Negative); Leukocyte Esterase Ur Negative LEU/UL (Negative); Nitrate Urine Negative (Negative); Non Pathogenic Casts 0-2; Protein Urine 1+ mg/dL (Negative); RBC Urine 0-2 /hpf (0-2); Specific Grav Ur 1.028 (1.001-1.035); Squamous Epithelial Cell Urine None Seen /hpf (Few); Urobilinogen Urine 0.2 mg/dL (<2.0); WBC Urine 0-5 /hpf (0-3)
[2024-09-08] MEDS: NITROGLYCERIN SL 0.4 MG TABLET SUBLINGUAL ×2 (02:24→03:20)
[2024-09-08 02:34] LABS: Influenza A QL RT-PCR Negative (Negative); Influenza B QL RT-PCR Negative (Negative); RSV RNA, RT-PCR Negative (Negative); SARS-CoV-2 RNA PCR Negative (Negative)
--- NOTE | 2024-09-08 03:20 | PC.NURSE ---
0320 1 tab of nitro given, pain is 7/10. 59 bpm, 97% on RA, 17 RR, bp157/73. Pain is now 7/10 after nitro administration. 0327 2nd tab of nitro given, 66bpm, 97% on RA, 16 RR, and 130/82. Pain is now 5/10 after nitro administration.
[2024-09-08] MEDS: MORPHINE SULFATE (*CRX) 4 MG/ML INJ IV PUSH (03:35)
--- NOTE | 2024-09-08 03:38 | ECG_ITS ---
Test Date: 2024-09-08 03:52:30 Measurements Intervals [place] Rate: 63 P: 6 VT: 151 QRS: -47 QRSD: 150 T: 18 QT: 465 QTc: 478 Interpretive Statements SINUS RHYTHM RIGHT BUNDLE BRANCH BLOCK LEFT ANTERIOR FASCICULAR BLOCK LEFT VENTRICULAR HYPERTROPHY CANNOT R/O SEPTAL INFARCT, AGE INDETERMINATE BASELINE ARTIFACT- I, II, III, AVR, AVL, AVF, V1-V6 ABNORMAL ECG Compared to ECG 09/08/2024 00:28:13 NO SIGNIFICANT CHANGE Electronically Signed On 09-08-2024 06:26:45 BOX TENDER by Stoney Dodd D.O.
[2024-09-08 04:14] LABS: Troponin I 0.015 ng/mL (0.000-0.034)
[2024-09-08] MEDS: AZITHROMYCIN 250 MG TABLET 500 MG PO (04:23)
[2024-09-08] MEDS: ALBUTEROL SULFATE NEB 2.5 MG/3 ML INH INHALATION (05:30)
[2024-09-08] MEDS: MAGNESIUM SULF 2 GM/WATER 50ML 2 GM/50 ML BAG IVPB (05:34)
[2024-09-08 05:46] LABS: Magnesium 2.2 mg/dL (1.6-2.3)
--- NOTE | 2024-09-08 06:20 | ECG_ITS ---
Test Date: 2024-09-08 06:59:59 Measurements Intervals [place] Rate: 65 P: -1 FL: 154 QRS: -47 QRSD: 158 T: 17 QT: 452 QTc: 470 Interpretive Statements SINUS RHYTHM POSSIBLE LEFT ATRIAL ENLARGEMENT RIGHT BUNDLE BRANCH BLOCK LEFT ANTERIOR FASCICULAR BLOCK LEFT VENTRICULAR HYPERTROPHY CANNOT R/O SEPTAL INFARCT, AGE INDETERMINATE BASELINE ARTIFACT- I, II, III, AVR, AVL, AVC, V1-V6 ABNORMAL ECG Compared to ECG 09/08/2024 03:52:30 No significant changes Electronically Signed On 09-08-2024 07:59:42 CREDIT UNION MANAGER by Stoney Dodd D.O.
--- NOTE | 2024-09-08 07:21 | PC.NURSE ---
Bedside report given to MARY Veloz, all questions answered. Patient moved from H2 to room 14.
[2024-09-08] MEDS: ALBUTEROL SULFATE NEB 2.5 MG/3 ML INH 10 MG INHALATION (07:31)
[2024-09-08 07:41] LABS: Troponin I 0.018 ng/mL (0.000-0.034)
[2024-09-08 08:40] LABS: MRSA (PCR) NOT DETECTED (NOT DETECTE)
--- NOTE | 2024-09-08 08:47 | PC.NURSE ---
Called pt's with an updated for room change, no answer, voicemail left.
--- NOTE | 2024-09-08 10:27 | PM.IMHP ---
H&P: HPI History of Present Illness Date/Time: 09/08/24 10:27 Chief Complaint: SOB Narrative: 69 y/o male with PMH of Afib/Aflutter (anticoagulation-eliquis), BPH, anxiety, COPD, chronic anemia, diastolic HF, chronic anemia, HLD, HTN, KIRSTEN on BiPAP, PE (2019), secondary erythrocytosis r/t COPD and KIRSTEN, and ulcerative colitis adm Of note, he was seen per urology, Dr Ko for kidney stone treatment on 05/16 (Right ESWL) He also following with Dr Zimmerman for peripheral neuropathy, SRIKANTH 03/25/24- Lidocaine patches 1 on each side for 12 hours on and 12 hours off- If the pain continues to be a problem you physician can refer to a facilities painter for hydrocodone or narcotic medication management- Pregabalin 25 mg twice a day -however, pt stopped that as it made him nauseated and he could not tolerate it-so he stopped Patient has not been feeling well for the past few days and chest pain started last night, 09/07. Pain was tight and associated with sob. He had chest pian in the past but this time, it felt different. He reported episodes of nausea but did not vomit. He was noted to be diaphoretic. For his COPD at baseline he is on oxygen at nighttime. He is following with pulmonology here, last office visit was with Dr Jones on 05/14/24.He was started on Trelegy but he had issues with coverage- that seemed to resolved according to office visit notes. He denies any lower extremity edema. He states that his arms feel weird. He states this has never happened before. He does follow with postdoctoral scholar Dr. Castellanos but is not due to see him until December. In ED: EKG was done: SINUS RHYTHM POSSIBLE LEFT ATRIAL ENLARGEMENT RIGHT BUNDLE BRANCH BLOCK LEFT ANTERIOR FASCICULAR BLOCK LEFT VENTRICULAR HYPERTROPHY CANNOT R/O SEPTAL INFARCT, AGE INDETERMINATE BASELINE ARTIFACT- I, II, III, AVR, AVL, AVC, V1-V6 ABNORMAL ECG Compared to ECG 09/08/2024 03:52:30 No significant changes Chest xray: Mild patchy airspace disease, similar to prior exam. Correlate for chronic changes versus possibly mild pulmonary edema or infection. Mild central congestive change. Pt is seen and examined. He is still having some sob but it is a lot better after breathing tx, no chest pain now- morphine and nitro helped. He is evry uncomfortable with ED stretcher and wants to go to the room. at the bedside. Review of Systems Review of Systems: All systems reviewed & are unremarkable except as noted in HPI and below Cardiovascular: Cardiovascular: Reports chest pain Respiratory: Respiratory: Reports dyspnea and Reports dyspnea on exertion FOR[facility]LY [facility], [facility] Past Medical History Medical History (Updated 09/08/24 @ 10:54 by Apple Sheldon, MARINA) Shortness of breath Obstructive sleep apnea Peripheral vascular disease Peripheral neuropathy Chronic anticoagulation Ataxia Lumbar spondylosis Atrial fibrillation Diagnosed 01/2022 Atrial flutter Diagnosis 06/2022. Diastolic heart failure BMI greater than 40 Chronic anemia Ulcerative colitis Pulmonary embolism (08/2018) Secondary erythrocytosis Related to COPD and obstructive sleep apnea. Previously received therapeutic phlebotomy. Tubulovillous adenoma of colon Overactive bladder Benign prostatic hyperplasia Hypertension Gastroesophageal reflux disease Chronic obstructive pulmonary disease Compression fx, thoracic spine Low serum vitamin D Anxiety Hyperlipidemia Surgical History Surgical History History of transurethral resection of prostate History of prostatectomy History of cardioversion History of esophageal dilatation History of colonoscopy with polypectomy History of extraction of renal calculus History of cystoscopy History of cardiac catheterization History of right hemicolectomy (06/10/19) Benign tubulovillous adenoma. History of decompression of ulnar nerve Left elbow. History of bilateral cataract extraction History of dental surgery Family History Family History Father Hypertension Malignant neoplasm of prostate Sibling Diabetes mellitus Family history of cardiovascular disease Malignant neoplasm of prostate Hypertension Heart disease Mother Family history of rheumatic fever Heart disease Asthma Acute myocardial infarction, Onset Age: 53 Sibling Cancer Heart transplant recipient Other Family history of coronary artery disease Family history of lung cancer Social History Social History Social History: Surrogate decision maker: Akua Wilson, spouse. Code status: Do not resuscitate. 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 Spiritual care concerns: No Meds Home Medications and Allergies Home Medications ?Medication ?Instructions ?Recorded ?Confirmed ?Type multivitamin (Multiple Vitamins 1 tablet PO DAILY 05/30/19 05/22/24 History tablet) ferrous sulfate 325 mg (65 mg 325 mg PO DAILY #60 tabs 12/16/19 05/22/24 Rx iron) tablet cholecalciferol (vitamin D3) 100 4,000 unit PO DAILY 04/18/21 05/22/24 History mcg (4,000 unit) capsule (Vitamin D3) furosemide 40 mg tablet 40 mg PO DAILY #30 tabs 04/20/23 05/22/24 Rx omeprazole 20 mg capsule,delayed 20 mg PO DAILY #90 caps 08/23/23 05/22/24 Rx release lysine HCl 1,000 mg tablet 1,000 mg PO DAILY 10/01/23 05/22/24 History roflumilast 500 mcg tablet 500 mcg PO DAILY COPD 3 months #90 11/06/23 05/22/24 Rx tabs albuterol sulfate 2.5 mg/3 mL 2.5 mg (3 mL) inhalation Q4-6H PRN 11/20/23 05/22/24 Rx (0.083 %) solution for nebulization shortness of breath or wheezing #90 mL apixaban 5 mg tablet (Eliquis) 5 mg PO BID 12/21/23 05/22/24 History aspirin 81 mg tablet,delayed 81 mg PO DAILY 12/21/23 05/22/24 History release (Adult Low Dose Aspirin) sotalol 80 mg tablet 80 mg PO Q12HR #60 tabs 12/25/23 05/22/24 Rx albuterol sulfate 90 mcg/actuation 2 inh inhalation Q4H PRN shortness 01/10/24 05/22/24 Rx aerosol inhaler of breath or wheezing #8.5 grams Trelegy Ellipta 100 mcg-62.5 1 inh inhalation Q24H 1 month #60 01/14/24 05/22/24 Rx mcg-25 mcg powder for inhalation ea (isfphrmxywk-iytyocoex-fropiqfb) sacubitril 49 mg-valsartan 51 mg 1 tablet PO BID 02/11/24 05/22/24 History tablet (Entresto) sertraline 25 mg tablet 25 mg PO DAILY #30 tabs 02/11/24 05/22/24 Rx docusate sodium 100 mg capsule 100 mg PO DAILY PRN constipation 02/18/24 05/22/24 Rx (Colace) #30 caps empagliflozin 10 mg tablet 10 mg PO DAILY 03/24/24 05/22/24 History (Jardiance) spironolactone 25 mg tablet 25 mg PO DAILY 03/24/24 05/22/24 History lidocaine 5 % topical patch 2 patch topical DAILY #30 ea 03/25/24 05/22/24 Rx tramadol 50 mg tablet 50 mg PO BID pain #30 tabs 05/01/24 05/22/24 Rx hydrocodone 5 mg-acetaminophen 325 1 - 2 tablet PO Q6H PRN pain #20 05/16/24 05/22/24 Rx mg tablet tabs rosuvastatin 20 mg tablet 20 mg PO HS #90 tabs 05/28/24 Rx potassium chloride 20 mEq See Rx Instructions .Route 05/30/24 Rx tablet,extended .COMPLEX #90 tabs release(part/cryst) (Klor-Con M) pregabalin 25 mg capsule 25 mg PO BID #60 caps 06/12/24 Rx balsalazide 750 mg capsule 2,250 mg (3 x 750 mg) PO BID #540 07/07/24 Rx caps trazodone 100 mg tablet 100 mg PO QHS #90 tabs 07/07/24 Rx Allergies Allergy/AdvReac Type Severity Reaction Status Date / Time codeine AdvReac Mild CONSTIPATIO Verified 09/08/24 00:31 N methylprednisolone AdvReac Mild Vomiting Verified 09/08/24 00:31 prednisone AdvReac Unknown Vomiting Verified 09/08/24 00:31 Vital Signs Vital Signs - 24 hr 09/08/24 00:26 09/08/24 00:27 09/08/24 00:28 Temperature 98.4 F Pulse Rate 64 70 70 Respiratory Rate 18 22 H 27 H Blood Pressure 177/79 H 177/79 H Pulse Oximetry 95 94 95 Oxygen Delivery Room Air 09/08/24 00:30 09/08/24 00:31 09/08/24 00:45 Temperature Pulse Rate 64 63 Respiratory Rate 17 20 Blood Pressure Pulse Oximetry 97 97 96 Oxygen Delivery Room Air 09/08/24 01:01 09/08/24 01:03 09/08/24 01:08 Temperature Pulse Rate 62 61 61 Respiratory Rate 20 17 18 Blood Pressure Pulse Oximetry 100 Oxygen Delivery 09/08/24 01:15 09/08/24 01:30 09/08/24 01:50 Temperature Pulse Rate 58 L 61 70 Respiratory Rate 21 H 13 22 H Blood Pressure Pulse Oximetry 91 95 Oxygen Delivery 09/08/24 02:02 09/08/24 02:15 09/08/24 02:30 Temperature Pulse Rate 59 L 59 L 69 Respiratory Rate 18 16 14 Blood Pressure Pulse Oximetry 96 98 97 Oxygen Delivery 09/08/24 02:45 09/08/24 03:00 09/08/24 03:15 Temperature Pulse Rate 76 61 60 Respiratory Rate 27 H 14 20 Blood Pressure Pulse Oximetry 96 95 97 Oxygen Delivery 09/08/24 03:23 09/08/24 03:30 09/08/24 03:33 Temperature Pulse Rate 62 69 67 Respiratory Rate 13 17 15 Blood Pressure 157/73 H 130/82 Pulse Oximetry 96 94 97 Oxygen Delivery 09/08/24 03:45 09/08/24 04:00 09/08/24 04:15 Temperature Pulse Rate 65 61 63 Respiratory Rate 16 11 L 13 Blood Pressure Pulse Oximetry 96 93 98 Oxygen Delivery 09/08/24 04:30 09/08/24 04:31 09/08/24 04:45 Temperature Pulse Rate 65 66 57 L Respiratory Rate 15 14 11 L Blood Pressure 153/86 H Pulse Oximetry 96 95 98 Oxygen Delivery 09/08/24 05:00 09/08/24 05:01 09/08/24 05:15 Temperature Pulse Rate 53 L 55 L 62 Respiratory Rate 14 11 L 14 Blood Pressure 92/66 L Pulse Oximetry 96 91 92 Oxygen Delivery 09/08/24 05:30 09/08/24 05:30 09/08/24 05:32 Temperature Pulse Rate 56 L 69 59 L Respiratory Rate 14 18 12 Blood Pressure 143/70 H Pulse Oximetry 97 100 Oxygen Delivery 09/08/24 05:37 09/08/24 05:45 09/08/24 06:00 Temperature Pulse Rate 59 L 61 67 Respiratory Rate 14 12 16 Blood Pressure Pulse Oximetry 96 96 Oxygen Delivery 09/08/24 06:02 09/08/24 06:15 09/08/24 06:30 Temperature Pulse Rate 63 65 Respiratory Rate 22 H 23 H Blood Pressure 141/56 H Pulse Oximetry 91 92 Oxygen Delivery 09/08/24 06:31 09/08/24 06:45 09/08/24 07:00 Temperature Pulse Rate 68 63 65 Respiratory Rate 23 H 16 18 Blood Pressure 183/82 H Pulse Oximetry 95 97 94 Oxygen Delivery 09/08/24 07:01 09/08/24 07:37 09/08/24 07:54 Temperature Pulse Rate 66 56 L 64 Respiratory Rate 21 H 12 16 Blood Pressure 129/95 H 149/70 H Pulse Oximetry 96 99 Oxygen Delivery 09/08/24 08:40 Temperature Pulse Rate 76 Respiratory Rate 20 Blood Pressure Pulse Oximetry Oxygen Delivery Exam Const: General: comfortable Resp: Effort & Inspection: normal respiratory effort Cardio: Rate: regular rate Rhythm: regular rhythm GI: GI Palp: Yes Soft to palpation H&P: Results Labs Labs: Short CBC 09/08/24 Range/Units 00:37 WBC 9.6 (4.5-10.0) K/mm3 Hgb 15.2 (14.0-18.0) g/dL Hct 46.2 (42.0-52.0) % Plt Count 297 (150-375) k/mm3 BMP 09/08/24 00:37 Sodium 139 Potassium 3.7 Chloride 105 Carbon Dioxide 24 BUN 14 Creatinine 1.00 Glucose 110 Calcium 9.5 Cardiac Enzymes 09/08/24 09/08/24 09/08/24 Range/Units 00:37 03:45 07:13 Troponin I 0.016 0.015 0.018 (0.000-0.034) ng/mL Liver Function 09/08/24 Range/Units 00:37 Total Bilirubin 0.8 (0.2-1.3) mg/dL AST 26 (17-59) U/L ALT 17 (6-50) U/L Alkaline Phosphatase 149 H (38-126) U/L Albumin 3.7 (3.5-5.1) g/dL Urine 09/08/24 Range/Units 01:53 Urine Color Yellow (Yellow) Urine Appearance Clear (Clear) Urine pH 5.0 (5.0-9.0) Ur Specific [place] 1.028 (1.001-1.035) Urine Protein 1+ H (Negative) mg/dL Urine Glucose (UA) 3+ H (Negative) mg/dL Assessment and Plan Assessment and plan (1) Chest pain: Code(s): R07.9 - Chest pain, unspecified Status: Acute Assessment and Plan: per ed notes review-second dose of nitro relief his chest pain (along with morphine)- concern for unstable angina -trending troponin - cardiology consulted, DR Alvarado-awaiting recommendations - on anticoagulation- eliquis-will continue, CHADSVasc 6 (age, HTN hx, PE hx, DM hx) - telemetry monitoring fall/bleeding risk (2) Shortness of breath: Code(s): R06.02 - Shortness of breath Status: Acute Assessment and Plan: pneumonia vs COPD exacerbation vs cardiac in nature CXR Mild patchy airspace disease, similar to prior exam. Correlate for chronic changes versus possibly mild pulmonary edema or infection. Mild central congestive change. chest xray concerning for pneumonia-was started on Ceftriaxone azithromycin in ed-will continue - EKG: SINUS RHYTHM POSSIBLE LEFT ATRIAL ENLARGEMENT RIGHT BUNDLE BRANCH BLOCK LEFT ANTERIOR FASCICULAR BLOCK LEFT VENTRICULAR HYPERTROPHY CANNOT R/O SEPTAL INFARCT, AGE INDETERMINATE -continue breathing tx -monitor (3) Atrial fibrillation and flutter: Code(s): I48.91 - Unspecified atrial fibrillation; I48.92 - Unspecified atrial flutter Status: Acute Assessment and Plan: - cardiology consulted, DR Alvarado-awaiting recommendations - on anticoagulation- eliquis-will continue, CHADSVasc 6 (age, HTN hx, PE hx, DM hx) - telemetry monitoring fall/bleeding risk (4) Obstructive sleep apnea treated with BiPAP: Code(s): G47.33 - Obstructive sleep apnea (adult) (pediatric) Status: Acute Assessment and Plan: - continue home BiPAP (5) Stage 3a chronic kidney disease: Code(s): N18.31 - Chronic kidney disease, stage 3a Status: Acute (6) Essential (primary) hypertension: Code(s): I10 - Essential (primary) hypertension Status: Acute Assessment and Plan: - chronic - once home meds list is completed- will review and restart as appropriate - monitor (7) Benign hypertension with chronic kidney disease: Code(s): I12.9 - Hypertensive chronic kidney disease with stage 1 through stage 4 chronic kidney disease, or unspecified chronic kidney disease Status: Acute (8) Chronic obstructive pulmonary disease: Qualifiers: COPD type: COPD with acute lower respiratory infection Qualified Code(s): J44.0 - Chronic obstructive pulmonary disease with (acute) lower respiratory infection Code(s): J44.9 - Chronic obstructive pulmonary disease, unspecified Status: Acute Assessment and Plan: following with pulm Plan pt is a full code DVT prophylaxis: continue home eliquis once home meds are reconciled Quality VTE Prophylaxis VTE prophylaxis: pharmacologic ordered Hospitalist MIPS Advance Care Plan I have confirmed that the patient's Advanced Care Plan is present, code status is documented, or surrogate decision maker is listed in patient medical record.: Yes Medication Reconciliation I have utilized all available resources to obtain, update and review the patients current medications (includes all prescriptions, OTC, herbals, cannabis, and nutritional supplements).: Yes
--- NOTE | 2024-09-08 12:45 | P.CONCA_ITS ---
Assessment and Plan Assessment and plan (1) Right bundle branch block (RBBB): Code(s): I45.10 - Unspecified right bundle-branch block Status: Acute Plan 78-year-old man with paroxysmal atrial fibrillation (on Eliquis), chronic diastolic heart failure, COPD, KIRSTEN on BiPAP, hypertension/hyperlipidemia presented with chest discomfort Chest discomfort -echocardiogram and nuclear stress test History of Present Illness History of Present Illness Consult date/time: 09/08/24 12:45 Requesting physician: Apple Sheldon APRN Consult reason: chest pain Reason For Visit: pneumonia,copd exacerbation,cp with heart score 6 Narrative: 78-year-old man with paroxysmal atrial fibrillation (on Eliquis), chronic diastolic heart failure, COPD, KIRSTEN on BiPAP, hypertension/hyperlipidemia presented with chest discomfort. Right before he went to bed he had substernal chest pressure associated with shortness of breath. Typically he is able to ambulate within the confines of his [place] however recently he started develop shortness of breath with exertion while ambulating around his house. It was difficult to obtain further information in regards to his chest discomfort and shortness of breath as he is very focus on other issues that are very concerning to him at this time for which he is seeking relief. These issues that he is seeking relief from include his back pain for which he thoroughly explained that he has been moved from room to room in the emergency room and he feels that the other rooms that he were in had larger beds the more comfortable for his back and that he was told that he should sit in the chair for which he feels that the chair denied improve his back pain and he is still having back pain for which he is seeking relief for which he repeatedly told me that he wants to seek relief for his back pain. He goes on to state that on nurse that he had for which she had concerns because he thought his name was Tom who had dispute with his young son however the nurse's name was not Tom but he still had concerns about this for which she continued to go into detail a wide this was concerning to him. He goes on to state that there was another nurse who did not look into his room as she walked by. He further has complaints that the oxygen content within the BiPAP was inappropriate and that was very difficult for him to obtain a BiPAP. He also expressed concerns to the staff that his oxygen level is a concern to him in well as listen to him speak his oxygen saturations were in 96-99% range. He also said his home to bring in his BiPAP machine. These are some of the issues that he is trying to seek relief from. He also had significant concerns that he is currently not in a room. Review of Systems 2 Cardiovascular: Cardiovascular: Reports as per HPI Respiratory: Respiratory: Reports as per HPI [facility] Past Medical History Medical History (Updated 09/08/24 @ 10:54 by Apple Sheldon APRN) Shortness of breath Obstructive sleep apnea Peripheral vascular disease Peripheral neuropathy Chronic anticoagulation Ataxia Lumbar spondylosis Atrial fibrillation Diagnosed 01/2022 Atrial flutter Diagnosis 06/2022. Diastolic heart failure BMI greater than 40 Chronic anemia Ulcerative colitis Pulmonary embolism (08/2018) Secondary erythrocytosis Related to COPD and obstructive sleep apnea. Previously received therapeutic phlebotomy. Tubulovillous adenoma of colon Overactive bladder Benign prostatic hyperplasia Hypertension Gastroesophageal reflux disease Chronic obstructive pulmonary disease Compression fx, thoracic spine Low serum vitamin D Anxiety Hyperlipidemia Surgical History Surgical History (Reviewed 05/22/24 @ 11:05 by Diana Iglesias [facility]) History of transurethral resection of prostate History of prostatectomy History of cardioversion History of esophageal dilatation History of colonoscopy with polypectomy History of extraction of renal calculus History of cystoscopy History of cardiac catheterization History of right hemicolectomy (06/10/19) Benign tubulovillous adenoma. History of decompression of ulnar nerve Left elbow. History of bilateral cataract extraction History of dental surgery Family History Family History Father Hypertension Malignant neoplasm of prostate Sibling Diabetes mellitus Family history of cardiovascular disease Malignant neoplasm of prostate Hypertension Heart disease Mother Family history of rheumatic fever Heart disease Asthma Acute myocardial infarction, Onset Age: 53 Sibling Cancer Heart transplant recipient Other Family history of coronary artery disease Family history of lung cancer Social History Social History Social History: Surrogate decision maker: Akua Wilson, spouse. Code status: Do not resuscitate. 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 Spiritual care concerns: No Meds Home Medications and Allergies Home Medications ?Medication ?Instructions ?Recorded ?Confirmed ?Type multivitamin (Multiple Vitamins 1 tablet PO DAILY 05/30/19 05/22/24 History tablet) ferrous sulfate 325 mg (65 mg 325 mg PO DAILY #60 tabs 12/16/19 05/22/24 Rx iron) tablet cholecalciferol (vitamin D3) 100 4,000 unit PO DAILY 04/18/21 05/22/24 History mcg (4,000 unit) capsule (Vitamin D3) furosemide 40 mg tablet 40 mg PO DAILY #30 tabs 04/20/23 05/22/24 Rx omeprazole 20 mg capsule,delayed 20 mg PO DAILY #90 caps 08/23/23 05/22/24 Rx release lysine HCl 1,000 mg tablet 1,000 mg PO DAILY 10/01/23 05/22/24 History roflumilast 500 mcg tablet 500 mcg PO DAILY COPD 3 months #90 11/06/23 05/22/24 Rx tabs albuterol sulfate 2.5 mg/3 mL 2.5 mg (3 mL) inhalation Q4-6H PRN 11/20/23 05/22/24 Rx (0.083 %) solution for nebulization shortness of breath or wheezing #90 mL apixaban 5 mg tablet (Eliquis) 5 mg PO BID 12/21/23 05/22/24 History aspirin 81 mg tablet,delayed 81 mg PO DAILY 12/21/23 05/22/24 History release (Adult Low Dose Aspirin) sotalol 80 mg tablet 80 mg PO Q12HR #60 tabs 12/25/23 05/22/24 Rx albuterol sulfate 90 mcg/actuation 2 inh inhalation Q4H PRN shortness 01/10/24 05/22/24 Rx aerosol inhaler of breath or wheezing #8.5 grams Trelegy Ellipta 100 mcg-62.5 1 inh inhalation Q24H 1 month #60 01/14/24 05/22/24 Rx mcg-25 mcg powder for inhalation ea (nslleppgjet-yoemclaqx-doupabwa) sacubitril 49 mg-valsartan 51 mg 1 tablet PO BID 02/11/24 05/22/24 History tablet (Entresto) sertraline 25 mg tablet 25 mg PO DAILY #30 tabs 02/11/24 05/22/24 Rx docusate sodium 100 mg capsule 100 mg PO DAILY PRN constipation 02/18/24 05/22/24 Rx (Colace) #30 caps empagliflozin 10 mg tablet 10 mg PO DAILY 03/24/24 05/22/24 History (Jardiance) spironolactone 25 mg tablet 25 mg PO DAILY 03/24/24 05/22/24 History lidocaine 5 % topical patch 2 patch topical DAILY #30 ea 03/25/24 05/22/24 Rx tramadol 50 mg tablet 50 mg PO BID pain #30 tabs 05/01/24 05/22/24 Rx hydrocodone 5 mg-acetaminophen 325 1 - 2 tablet PO Q6H PRN pain #20 05/16/24 05/22/24 Rx mg tablet tabs rosuvastatin 20 mg tablet 20 mg PO HS #90 tabs 05/28/24 Rx potassium chloride 20 mEq See Rx Instructions .Route 05/30/24 Rx tablet,extended .COMPLEX #90 tabs release(part/cryst) (Klor-Con M) pregabalin 25 mg capsule 25 mg PO BID #60 caps 06/12/24 Rx balsalazide 750 mg capsule 2,250 mg (3 x 750 mg) PO BID #540 07/07/24 Rx caps trazodone 100 mg tablet 100 mg PO QHS #90 tabs 07/07/24 Rx Allergies Allergy/AdvReac Type Severity Reaction Status Date / Time codeine AdvReac Mild CONSTIPATIO Verified 09/08/24 00:31 N methylprednisolone AdvReac Mild Vomiting Verified 09/08/24 00:31 prednisone AdvReac Unknown Vomiting Verified 09/08/24 00:31 Vital Signs Vital Signs - 24 hr 09/08/24 00:26 09/08/24 00:27 09/08/24 00:28 Temperature 36.9 C Pulse Rate 64 70 70 Respiratory Rate 18 22 H 27 H Blood Pressure 177/79 H 177/79 H Pulse Oximetry 95 94 95 Oxygen Delivery Room Air 09/08/24 00:30 09/08/24 00:31 09/08/24 00:45 Temperature Pulse Rate 64 63 Respiratory Rate 17 20 Blood Pressure Pulse Oximetry 97 97 96 Oxygen Delivery Room Air 09/08/24 01:01 09/08/24 01:03 09/08/24 01:08 Temperature Pulse Rate 62 61 61 Respiratory Rate 20 17 18 Blood Pressure Pulse Oximetry 100 Oxygen Delivery 09/08/24 01:15 09/08/24 01:30 09/08/24 01:50 Temperature Pulse Rate 58 L 61 70 Respiratory Rate 21 H 13 22 H Blood Pressure Pulse Oximetry 91 95 Oxygen Delivery 09/08/24 02:02 09/08/24 02:15 09/08/24 02:30 Temperature Pulse Rate 59 L 59 L 69 Respiratory Rate 18 16 14 Blood Pressure Pulse Oximetry 96 98 97 Oxygen Delivery 09/08/24 02:45 09/08/24 03:00 09/08/24 03:15 Temperature Pulse Rate 76 61 60 Respiratory Rate 27 H 14 20 Blood Pressure Pulse Oximetry 96 95 97 Oxygen Delivery 09/08/24 03:23 09/08/24 03:30 09/08/24 03:33 Temperature Pulse Rate 62 69 67 Respiratory Rate 13 17 15 Blood Pressure 157/73 H 130/82 Pulse Oximetry 96 94 97 Oxygen Delivery 09/08/24 03:45 09/08/24 04:00 09/08/24 04:15 Temperature Pulse Rate 65 61 63 Respiratory Rate 16 11 L 13 Blood Pressure Pulse Oximetry 96 93 98 Oxygen Delivery 09/08/24 04:30 09/08/24 04:31 09/08/24 04:45 Temperature Pulse Rate 65 66 57 L Respiratory Rate 15 14 11 L Blood Pressure 153/86 H Pulse Oximetry 96 95 98 Oxygen Delivery 09/08/24 05:00 09/08/24 05:01 09/08/24 05:15 Temperature Pulse Rate 53 L 55 L 62 Respiratory Rate 14 11 L 14 Blood Pressure 92/66 L Pulse Oximetry 96 91 92 Oxygen Delivery 09/08/24 05:30 09/08/24 05:30 09/08/24 05:32 Temperature Pulse Rate 56 L 69 59 L Respiratory Rate 14 18 12 Blood Pressure 143/70 H Pulse Oximetry 97 100 Oxygen Delivery 09/08/24 05:37 09/08/24 05:45 09/08/24 06:00 Temperature Pulse Rate 59 L 61 67 Respiratory Rate 14 12 16 Blood Pressure Pulse Oximetry 96 96 Oxygen Delivery 09/08/24 06:02 09/08/24 06:15 09/08/24 06:30 Temperature Pulse Rate 63 65 Respiratory Rate 22 H 23 H Blood Pressure 141/56 H Pulse Oximetry 91 92 Oxygen Delivery 09/08/24 06:31 09/08/24 06:45 09/08/24 07:00 Temperature Pulse Rate 68 63 65 Respiratory Rate 23 H 16 18 Blood Pressure 183/82 H Pulse Oximetry 95 97 94 Oxygen Delivery 09/08/24 07:01 09/08/24 07:02 09/08/24 07:15 Temperature Pulse Rate 66 65 64 Respiratory Rate 21 H 15 17 Blood Pressure 129/95 H Pulse Oximetry 96 97 96 Oxygen Delivery 09/08/24 07:30 09/08/24 07:37 09/08/24 07:45 Temperature Pulse Rate 58 L 56 L 56 L Respiratory Rate 19 12 19 Blood Pressure Pulse Oximetry 97 100 Oxygen Delivery 09/08/24 07:54 09/08/24 07:56 09/08/24 08:00 Temperature Pulse Rate 64 64 63 Respiratory Rate 16 12 17 Blood Pressure 149/70 H 149/70 H Pulse Oximetry 99 100 100 Oxygen Delivery 09/08/24 08:01 09/08/24 08:15 09/08/24 08:17 Temperature Pulse Rate 63 74 74 Respiratory Rate 13 15 13 Blood Pressure 99/75 L 177/81 H Pulse Oximetry 99 100 100 Oxygen Delivery 09/08/24 08:30 09/08/24 08:31 09/08/24 08:40 Temperature Pulse Rate 77 77 76 Respiratory Rate 20 17 20 Blood Pressure 195/93 H Pulse Oximetry 99 98 Oxygen Delivery 09/08/24 08:45 09/08/24 09:00 09/08/24 09:15 Temperature Pulse Rate 74 74 73 Respiratory Rate 14 13 20 Blood Pressure Pulse Oximetry 98 98 97 Oxygen Delivery 09/08/24 09:30 09/08/24 09:45 09/08/24 10:00 Temperature Pulse Rate 70 73 68 Respiratory Rate 17 12 17 Blood Pressure Pulse Oximetry 100 95 Oxygen Delivery 09/08/24 10:15 09/08/24 10:30 09/08/24 10:45 Temperature Pulse Rate 71 75 72 Respiratory Rate 24 H 21 H 21 H Blood Pressure Pulse Oximetry 92 95 95 Oxygen Delivery 09/08/24 11:00 09/08/24 11:15 09/08/24 11:30 Temperature Pulse Rate 72 69 79 Respiratory Rate 21 H 16 24 H Blood Pressure Pulse Oximetry 97 98 97 Oxygen Delivery 09/08/24 11:45 Temperature Pulse Rate 71 Respiratory Rate 15 Blood Pressure Pulse Oximetry 94 Oxygen Delivery Exam 2 Const: General: comfortable HENMT: Mouth: Yes moist mucous membranes Eyes: EOM: EOMs intact bilaterally Neck: Neck: no JVD Resp: Effort & Inspection: normal respiratory effort Auscultation: rhonchi Cardio: Rate: regular rate Rhythm: regular rhythm Neuro: Speech: normal speech Extrem: General: no pedal edema Results Labs and Meds 09/08/24 00:37 09/08/24 00:37 Lab results: Cardiac Enzymes 09/08/24 09/08/24 09/08/24 Range/Units 00:37 03:45 07:13 AST 26 (17-59) U/L Troponin I 0.016 0.015 0.018 (0.000-0.034) ng/mL Coagulation 09/08/24 Range/Units 00:37 PT 14.4 (11.1-14.7) Seconds APTT 30.6 (22.3-36.8) Seconds CBC 09/08/24 Range/Units 00:37 WBC 9.6 (4.5-10.0) K/mm3 RBC 4.84 (4.6-6.20) M/mm3 Hgb 15.2 (14.0-18.0) g/dL Hct 46.2 (42.0-52.0) % Plt Count 297 (150-375) k/mm3 Lymph # (Auto) 2.22 (0.9-3.2) K/mm3 [place] # (Auto) 0.8 H (0.1-0.6) K/mm3 Eos # (Auto) 0.2 (0-0.3) K/mm3 Baso # (Auto) 0.1 (0.0-0.1) K/mm3 Comprehensive Metabolic Panel 09/08/24 Range/Units 00:37 Sodium 139 (137-145) mmol/L Potassium 3.7 (3.4-5.0) mmol/L Chloride 105 (98-107) mmol/L Carbon Dioxide 24 (22-30) mmol/L BUN 14 (9-20) mg/dL Creatinine 1.00 (0.7-1.3) mg/dL Glucose 110 (65-110) mg/dL Calcium 9.5 (8.4-10.2) mg/dL AST 26 (17-59) U/L ALT 17 (6-50) U/L Alkaline Phosphatase 149 H (38-126) U/L Total Protein 7.0 (6.3-8.2) g/dL Albumin 3.7 (3.5-5.1) g/dL Intake and Output 09/07/24 09/08/24 09/08/24 23:59 07:59 15:59 Intake Total 100 Balance 100 Intake: IV 100 Magnesium Sulf 2 gm/Water 50Ml 50 2 gm In 50 ml @ 25 mls/hr IVPB ONCE ONE Rx#:[id number] cefTRIAXone 1 GM/NS 50 ML 1 gm 50 In 50 ml @ 100 mls/hr IVPB ONCE STA Rx#:[id number] Patient Weight 09/08/24 23:59 Weight 129.5 kg
[2024-09-08] MEDS: PERFLUTREN LIPID MICROSPHERES 1.5 ML VIAL DILUTED TO 10 ML TOTAL VOLUME IV PUSH (13:30)
--- NOTE | 2024-09-08 13:31 | PC.NURSE ---
admission started in ED. will bring in med list later today
--- NOTE | 2024-09-08 14:23 | IVDEFINITY ---
Prior to administration of IV Definity the patient was educated on the risks and benefits of the imaging enhancing agent including potential adverse side effects. The patient verbalized understanding. Allergies were verified. No exclusion criteria were identified and at least one of the following inclusion criteria were met: 1) physician request, 2) patient technically difficult to image (per the [place] [employer]chocardi[employer] guidelines of two or more segments not discernable within the apical view), or 3) questionable left ventricular function. ?
--- NOTE | 2024-09-08 19:35 | PC.NURSE ---
Pt refused dinner tray today. Pt offered water and he refused. Pt is not happy with the wait for IMU bed and is requesting to go home. Hospitalist contacted, waiting on response.
--- NOTE | 2024-09-08 22:14 | PM.EVENT ---
Event Note Event Note Event Note: I received a call from the patient's nurse at around 19:30. The patient is upset that he does not yet have a bed upstairs and that he has been waiting in the emergency department all day. He in fact does have a bed assigned however the room is not yet clean. He was unwilling to stay any longer despite this information. Nursing staff report that he had decision making capacity and he was informed of the risks of leaving against medical advice including acute coronary syndrome, decline and condition, and even . He understood these risks and signed out against medical advice. I was unable to get to the emergency department to speak with him prior to this and I never saw or evaluated the patient during his stay.
== END 2024-09-08 20:16 | disposition left against medical advice (07) ==
LOC: ANHED 06:11 → ANHIMU 20:14 → ANH2MED 09-12 07:52
PROVIDERS: Admitting Provider General Practice; Emergency Provider Student in an Organized Health Care Education/Training Program; Visit Provider General Practice
DX: R07.9 Chest pain, unspecified (principal); R06.02 Shortness of breath; I45.10 Unspecified right bundle-branch block; I48.0 Paroxysmal atrial fibrillation; I48.92 Unspecified atrial flutter; I13.0 Hypertensive heart and chronic kidney disease with heart failure and stage 1 through stage 4 chronic kidney disease, or unspecified chronic kidney disease; N18.31 Chronic kidney disease, stage 3a; I50.32 Chronic diastolic (congestive) heart failure; G47.33 Obstructive sleep apnea (adult) (pediatric); J44.9 Chronic obstructive pulmonary disease, unspecified; E78.5 Hyperlipidemia, unspecified; N40.0 Benign prostatic hyperplasia without lower urinary tract symptoms; D64.9 Anemia, unspecified; K21.9 Gastro-esophageal reflux disease without esophagitis; I73.9 Peripheral vascular disease, unspecified; G62.9 Polyneuropathy, unspecified; Z20.822 Contact with and (suspected) exposure to COVID-19; Z66 Do not resuscitate; Z86.711 Personal history of pulmonary embolism; Z79.01 Long term (current) use of anticoagulants; Z79.51 Long term (current) use of inhaled steroids; Z79.899 Other long term (current) drug therapy; Z99.89 Dependence on other enabling machines and devices
CPT/HCPCS: 36415; 71045; 80053; 81001; 83690; 83735; 83880; 84484; 85025; 85610; 85730; 87637; 87641; 93005; 94640; 96365; 96366; 96375; 99284; A9270; C8929; G0378; J0696; J2270; J3475; Q9957

== ENCOUNTER 2024-10-04 08:23 | Outpatient (CLI) | payer MEDICARE, SELFPAY ==
--- NOTE | ~2024-10-04 | XR_ITS ---
Clinical Indication: Edema PA and lateral views of the chest: Comparison: 09/08/2024 Findings: Suspected chronic interstitial pulmonary disease and/or COPD change. Stable elevation right hemidiaphragm. Cardiomediastinal silhouette is within normal limits. Bones and soft tissues are unr emarkable. Impression: Probable chronic interstitial disease or COPD change. Reviewed, dictated and finalized at location . Impression: Probable chronic interstitial disease or COPD change.
== END 2024-10-04 08:24 | disposition home or self-care (01) ==
PROVIDERS: PCP Family Medicine; Visit Provider Nurse Practitioner Family
DX: J81.1 Chronic pulmonary edema (principal)
CPT/HCPCS: 71046

== ENCOUNTER 2024-10-21 13:38 | Outpatient (CLI) | payer MEDICARE, SELFPAY ==
--- NOTE | ~2024-10-21 | XR_ITS ---
XR abdomen/kub 1V 10/21/2024 13:56 Indication: Renal stone Procedure: KUB Comparison: Comparison to multiple prior studies sequentially, with oldest reviewed study dated 04/18. Findings: Bowel gas pattern nonobstructive. There is a right renal stone measuring 6 mm. No definite radiopaque left renal stones. There is levoscoliosis of the thoracolumbar spine with moderate spondyl osis. There are pelvic phleboliths. Impression: 1: Right nephrolithiasis. Reviewed, dictated and finalized at location A. Impression: 1: Right nephrolithiasis.
== END 2024-10-21 13:39 | disposition home or self-care (01) ==
PROVIDERS: PCP Family Medicine; Visit Provider Nurse Practitioner Family
DX: N20.0 Calculus of kidney (principal)
CPT/HCPCS: 74018

== ENCOUNTER 2024-11-03 12:40 | Outpatient (CLI) | payer MEDICARE, SELFPAY ==
--- NOTE | ~2024-11-03 | NM_ITS ---
EXAMINATION: NM hepatobiliary wo pharm DATE: 11/03/2024 15:22 INDICATION: Gallbladder disease COMPARISON: None. TECHNIQUE: 4.43 mCi Tc-99m mebrofenin (Choletec) was administered intravenously. Scintigraphic image s of the abdomen were obtained for one hour. At the 1 hour time point, the patient drank 8 oz Ensure, and imaging was continued for 60 minutes. Gallbladder ejection fraction was calculated by the techno logist. FINDINGS: There is normal clearance of radiotracer from the blood pool. There is homogeneous tracer u ptake by the liver. Activity progresses to the bowel and gallbladder. The gallbladder ejection fract ion (GBEF) is 25%. Note that with this technique, normal GBEF >= 33%. IMPRESSION: 1. . Gallbladder ejection fraction is below normal limits consistent with gallbladder dysfunction or chronic cholecystitis in the appropriate clinical setting. Reviewed, dictated and finalized at location A. IMPRESSION: 1. . Gallbladder ejection fraction is below normal limits consistent with gall bladder dysfunction or chronic cholecystitis in the appropriate clinical settgemma yoder
--- OUTSIDE RECORDS SUMMARY | 2024-11-03 14:19 | XMS_ITS | Clinical Summary ---
Author Organization [address] Address [address] [place] [address] Care Team Providers Care Crap Shooter Name Role Phone Lucio Oliveira MD Primary Care Provider Lucio Oliveira MD Unavailable [phone] Allergies Active Allergy Reactions Criticality Noted Date Comments Codeine Nausea & Vomiting High Codeine Sulfate Unknown Influen Tr-Split 2004 Vac (Pf) Rash Medium 09/18 Methylprednisolone Nausea & Vomiting,Nausea And Vomiting High 07/13/2016 Other Unknown 06/08/2016 Prednisone Nausea And Vomiting Low 09/18/2019 Medications lysine (L-LYSINE) 500 mg tablet 500 mg. 0 0 12/09/19 15 Active Additional Information Patient not taking.Reported on 07/11/2024 omeprazole (PriLOSEC) 20 mg capsule 20 mg. 0 0 12/12/19 15 Active furosemide (LASIX) 40 mg tablet Take 1 tablet (40 mg total) by mouth daily 03/08/20 17 Active rosuvastatin (CRESTOR) 20 mg tablet 10/02/19 19 Active potassium chloride ER (KLOR-CON) 20 mEq CR tablet Take 1 tablet (20 mEq total) by mouth as needed 12/17/19 19 Active balsalazide (COLAZAL) 750 mg capsule TAKE 3 CAPSULES TWICE A DAY 4 02/15/20 19 Active albuterol 2.5 mg /3 mL (0.083 %) nebulizer solution 06/19/20 19 Active multivitamin capsule daily Active cholecalciferol (VITAMIN [...] HOURS PRIOR TO BEDTIME 180 tablet 3 05/30/20 21 Active Additional Information Patient not taking.Reported on 07/11/2024 albuterol HFA (PROVENTIL HFA,VENTOLIN HFA,PROAIR HFA) 90 mcg/actuation inhaler 06/27/20 21 Active traZODone (DESYREL) 100 mg tabletIndicatio ns:Periodic limb movement disorder,Persis tent disorder of initiating or maintaining sleep Take 1-2 tablets every night at bedtime. 180 tablet 3 10/14/19 22 Active cyclobenzaprine (FLEXERIL) 10 mg tablet Take 1 tablet (10 mg total) by mouth 3 (three) times a day as needed for pain 12/16/19 22 Active fluticasone-ume clidin-vilanter (Trelegy Ellipta) 100-62.5-25 mcg inhaler Inhale 1 puff daily Active traMADoL (ULTRAM) 50 mg tablet Take 1 tablet (50 mg total) by mouth 2 (two) times a day 09/11/19 23 Active spironolactone (ALDACTONE) 25 mg tablet Take 1 tablet (25 mg total) by mouth every morning 90 tablet 3 05/09/20 23 Active Additional Information Patient not taking.Reported on 07/11/2024 tamsulosin (FLOMAX) 0.4 mg extended release capsule Take 1 capsule (0.4 mg total) by mouth nightly 06/06/20 23 Active empagliflozin (JARDIANCE) 10 mg tablet Take 1 tablet (10 mg total) by mouth daily 90 tablet 3 10/24/19 24 Active apixaban (ELIQUIS) 5 mg tablet Take 1 tablet (5 mg total) by mouth 2 (two) times a day 180 tablet 3 11/27/19 24 Active roflumilast (DALIRESP) 500 mcg tablet 11/07/19 24 Active lysine 1,000 mg tablet Take by mouth 07/30/18 70 Active sotaloL (BETAPACE) 80 mg tabletIndicatio ns:Atrial flutter, unspecified type (HCC) Take 1 tablet (80 mg total) by mouth every 12 (twelve) hours 180 tablet 3 01/15/20 24 Active sertraline (ZOLOFT) 25 mg tablet Take 1 tablet (25 mg total) by mouth daily Active pregabalin (LYRICA) 25 mg capsule Take 1 capsule (25 mg total) by mouth 2 (two) times a day Active docusate sodium (COLACE) 100 mg capsuleIndicati ons:constipatio n Take 1 capsule (100 mg total) by mouth 2 (two) times a day as needed for constipation Active sacubitriL-vals chayito (ENTRESTO) 49-51 mg tabletIndicatio ns:chronic heart failure Take 1 tablet by mouth 2 (two) times a day 180 tablet 10/09/19 25 Active sacubitriL-vals chayito (ENTRESTO) 49-51 mg tabletIndicatio ns:chronic heart failure Take 1 tablet by mouth 2 (two) times a day 180 tablet 3 10/24/19 24 025 Discontin ued(Reord er) Active Problems Problem Noted Date Diagnosed Date H/O cardiomyopathy 05/09/2023 Chronic anticoagulation 11/03/2022 CKD (chronic kidney disease) stage 3, GFR 30-59 ml/min 09/14/2022 Persistent atrial fibrillation 07/19/2022 Atrial flutter 07/19/2022 Other thrombophilia 07/19/2022 Chronic heart failure with preserved ejection fr action 08/09/2021 Benign hypertension with CKD (chronic kidney disease), stage II 08/09/2021 Coronary artery disease invo lving [place] coronary artery of [place] heart without angina pectoris 08/09/2021 Cough productive [...] 10/19/2017 Assessment & Plan (06/30/2019 1:54 PM LAUNDRY OR DRY CLEANERS COUNTER CLERK): He will try to get 30 [...] elevator. Assessment & Plan (06/07/2018 1:52 PM LAUNDRY OR DRY CLEANERS COUNTER CLERK): Obesity is improving with lifestyle modifications. [...] hours. Assessment & Plan (06/30/2019 1:53 PM LAUNDRY OR DRY CLEANERS COUNTER CLERK): He will wear his VPAP auto [...] set at 22/14 cm water pressure to [facility] for repair replace. Machine needs to [...] titration. Assessment & Plan (06/07/2018 1:52 PM LAUNDRY OR DRY CLEANERS COUNTER CLERK): He will wear his bilevel machine nightly and try to increase his sleep time to 7-8 hours. Assessment & Plan (10/19/2017 11:45 AM CDT): He will continue with bilevel /14 nightly for 7-9 hours. He was fit [...] bedtime. Assessment & Plan (06/07/2018 1:52 PM LAUNDRY OR DRY CLEANERS COUNTER CLERK): He will try to practice good [...] bedtime. Assessment & Plan (06/30/2019 1:54 PM LAUNDRY OR DRY CLEANERS COUNTER CLERK): He will take clonazepam 2 mg [...] Date Diagnosed Date Resolved Date Dilated cardiomyopathy 11/03/202205/09 Morbid obesity with BMI of 40.0-44.9, adult 12/14/2016 10/19/2017 Obesity (BMI 35.0-39.9 without comorbidity) 11/16/2016 10/19/2017 Testicular hypofunction 06/08/201611/2023 Body mass index 40+ - severely obese [...] Encounters Date Type Department Care Team Description 09/18/2024 Orders Only [facility] [address] [place] [address] Nav Morejon MD 09/15/2024 Telephone [facility] [address] [place] [address] Heber Alvarado MD [facility] 09/08/2024 Orders Only [facility] Information Management [address] [place] [id number] Nav Morejon MD from Last 3 Months Immunizations Immunization Administration Dates Next Due Influenza, Quadrivalent, Rec [...] on file Legal Sex Male 2:18 AM LAUNDRY OR DRY CLEANERS COUNTER CLERK Gender Identity Not on file Sexual Orientation Not on file Obstetrics History Last Filed Vital Signs Vital Sign Reading Time Taken Comments Blood Pressure 148/88 07/10/2024 2:44 PM LAUNDRY OR DRY CLEANERS COUNTER CLERK Pulse 61 07/10/2024 2:44 PM LAUNDRY OR DRY CLEANERS COUNTER CLERK Temperature 36.3 C (97.3 F) 05/30/2021 12:52 PM CDT Respiratory Rate 16 08/09/2021 2:02 PM LAUNDRY OR DRY CLEANERS COUNTER CLERK Oxygen Saturation 96% 07/10/2024 2:44 PM LAUNDRY OR DRY CLEANERS COUNTER CLERK Inhaled Oxygen Concentration - - Weight 129.3 kg (285 lb) 07/10/2024 2:44 PM LAUNDRY OR DRY CLEANERS COUNTER CLERK Height 177.8 cm (5' 10 ) 07/10/2024 2:44 PM LAUNDRY OR DRY CLEANERS COUNTER CLERK Body Mass Index 40.89 07/10/2024 2:44 PM LAUNDRY OR DRY CLEANERS COUNTER CLERK Plan of Treatment Health Maintenance Due [...] 11/04/2023 11/03/2022, 08/09/2021 Influenza Vaccine (#1) 2024 0, 04/29/2019, 04/29/2018 eGFR 06/14/2024 06/14/2023, 04/29, 09/11/2022 Pneumococcal vaccine 65+ Completed 08/07/2017, 03/2016 Procedures Procedure Name Priority Date/Time Associated Diagnosis Comments CARDIOLOGY DOCUMENT SCAN Routine 09/08/2024 2:13 PM LAUNDRY OR DRY CLEANERS COUNTER CLERK CARDIOLOGY DOCUMENT SCAN 09/08/2024 BASIC METABOLIC PANEL Routine 06/14/2023 1:49 PM LAUNDRY OR DRY CLEANERS COUNTER CLERK Chronic heart failure with preserved ejection fraction (HCC) Benign hypertension with CKD (chronic kidney disease), stage II H/O cardiomyopathy POCT LIPID PANEL Routine 11/03/2022 1:10 PM CDT Coronary artery disease involving chick[place]om[place]ian tribe coronary artery of chick[place]ian tribe heart without angina pectoris Mixed hyperlipidemia from Last 3 Months or Most Recently Relevant to Health Maintenance Results * Cardiology Document Scan (09/08/2024 2:13 PM LAUNDRY OR DRY CLEANERS COUNTER CLERK) Anatomical Region Laterality Modality Other us Nav Morejon MD [facility] PROCEDURES F inal Result * Cardiology Document Scan (09/08/2024) Anatomical Region Laterality Modality Other us Nav Morejon MD CV CARDIAC SERVICES PROCEDURES F inal Result * (ABNORMAL) Basic metabolic panel (06/14/2023 1:49 PM LAUNDRY OR DRY CLEANERS COUNTER CLERK) Glucose 79 70 - 99 mg/dL [facility] [...] [facility] - 01 Blood 06/14/2023 1:49 PM LAUNDRY OR DRY CLEANERS COUNTER CLERK 06/14/2023 Narrative [facility] - 06/15/2023 9:11 AM LAUNDRY OR DRY CLEANERS COUNTER CLERK Performed at: - [facility] [address] [id number] Buyer Intern: Uday Morocho PhD, Phone: [phone] Specimen Comment: A courtesy copy of this report has been sent to [facility], Specimen Comment: [phone] Rey Pal MD LAB BLOOD ORDERABLES Fin [...] Insurance [employer] MEDICARE MEDICARE MEDICARE Care Teams Crap Shooter Relationship Specialty Start Date End Date Lucio Oliveira MD PCP - General 07/02/19 Lucio Oliveira MD Family Medicine 07/02/19
--- OUTSIDE RECORDS SUMMARY | 2024-11-03 14:19 | XMS_ITS | Referral Summary ---
Author Organization [address] Address [address] [place] [address] Care Team Providers Care Sales Developer Name Role Phone Lucio Oliveira MD Primary Care Provider Lucio Oliveira MD Unavailable [phone] Encounters Date Type Department Care Team Description 09/18/2024 Orders Only [facility] [address] [facility] [address] [place] [address] Nav Morejon MD 09/15/2024 Telephone [facility] [address] [facility] [address] [place] [address] Heber Alvarado MD [facility] 09/08/2024 Orders Only [facility] Health Information Management [address] [place] [id number] Nav Morejon MD from Last 3 Months Allergies Active Allergy [...] II 08/09/2021 Coronary artery disease invo lving [place] coronary artery of [place]osh[place]aiute heart without angina pectoris 08/09/2021 Cough productive [...] 10/19/2017 Assessment & Plan (06/30/2019 1:54 PM BISQUE CLEANER): He will try to get 30 minutes [...] elevator. Assessment & Plan (06/07/2018 1:52 PM BISQUE CLEANER): Obesity is improving with lifestyle modifications. Discussed [...] hours. Assessment & Plan (06/30/2019 1:53 PM BISQUE CLEANER): He will wear his VPAP auto nightly [...] set at 22/14 cm water pressure to [facility] for repair replace. Machine needs to be [...] titration. Assessment & Plan (06/07/2018 1:52 PM BISQUE CLEANER): He will wear his bilevel machine nightly [...] bedtime. Assessment & Plan (06/07/2018 1:52 PM BISQUE CLEANER): He will try to practice good sleep [...] bedtime. Assessment & Plan (06/30/2019 1:54 PM BISQUE CLEANER): He will take clonazepam 2 mg every [...] Also suggested he try water walking. Immunizations Immunization Administration Dates Next Due Influenza, [...] on file Legal Sex Male 2:18 AM BISQUE CLEANER Gender Identity Not on file Sexual Orientation Not on file Last Filed Vital Signs Vital Sign Reading Time Taken Comments Blood Pressure 148/88 07/10/2024 2:44 PM BISQUE CLEANER Pulse 61 07/10/2024 2:44 PM BISQUE CLEANER Temperature 36.3 C (97.3 F) 05/30/2021 12:52 PM CDT Respiratory Rate 16 08/09/2021 2:02 PM BISQUE CLEANER Oxygen Saturation 96% 07/10/2024 2:44 PM BISQUE CLEANER Inhaled Oxygen Concentration - - Weight 129.3 kg (285 lb) 07/10/2024 2:44 PM BISQUE CLEANER Height 177.8 cm (5' 10 ) 07/10/2024 2:44 PM BISQUE CLEANER Body Mass Index 40.89 07/10/2024 2:44 PM BISQUE CLEANER Plan of Treatment Not on file Procedures Procedure Name Priority Date/Time Associated Diagnosis Comments CARDIOLOGY DOCUMENT SCAN Routine 09/08/2024 2:13 PM BISQUE CLEANER CARDIOLOGY DOCUMENT SCAN 09/08/2024 BASIC METABOLIC PANEL Routine 06/14/2023 1:49 PM BISQUE CLEANER Chronic heart failure with preserved ejection fraction (HCC) Benign hypertension with CKD (chronic kidney disease), stage II H/O cardiomyopathy POCT LIPID PANEL Routine 11/03/2022 1:10 PM CDT Coronary artery disease involving [place]osh[place]ai[place] coronary artery of [place]osh[place]paiute heart without angina pectoris Mixed hyperlipidemia from Last 3 Months or Most Recently Relevant to Health Maintenance Results * Cardiology Document Scan (09/08/2024 2:13 PM BISQUE CLEANER) Anatomical Region Laterality Modality Other us Nav Morejon MD CV CARDIAC SERVICES PROCEDURES F inal Result * Cardiology Document Scan (09/08/2024) Anatomical Region Laterality Modality Other us Nav Morejon MD CV CARDIAC SERVICES PROCEDURES F inal Result * (ABNORMAL) Basic metabolic panel (06/14/2023 1:49 PM BISQUE CLEANER) Glucose 79 70 - 99 mg/dL [facility] [...] [facility] - 01 Blood 06/14/2023 1:49 PM BISQUE CLEANER 06/14/2023 Narrative [facility] - 06/15/2023 9:11 AM BISQUE CLEANER Performed at: - [facility] [id number] Mixer Diamond Powder: Uday Morocho PhD, Phone: [phone] Specimen Comment: A courtesy copy of this report has been sent to [facility], Specimen Comment: [phone] Rey Pal MD LAB BLOOD ORDERABLES Fin al Result [facility] - 01 * POCT lipid panel (11/03/2022 1:10 PM CDT) Pathologist [facility] Cholesterol, POC 128 mg/dL Comment:GLU = 134 [...] Insurance AETNA MEDICARE MEDICARE MEDICARE Care Teams Sales Developer Relationship Specialty Start Date End Date Lucio Oliveira MD PCP - General 07/02/19 Lucio Oliveira MD Family Medicine 07/02/19
--- OUTSIDE RECORDS SUMMARY | 2024-11-03 14:19 | XMS_ITS | Encounter Summary ---
Author Organization [facility] Address [address] [place] [address] Care Team Providers Care Template Fitter Name Role Phone Lucio Oliveira MD Primary Care Provider [phone] Encounter Details Date Type Department Care Team (Latest Contact Info) Description 12/18/2008 Outpatient Historical HIS [facility] BRUNILDA Palacios, MD Pool NO ADDRESS ON FILE Other Degenerative Diseases of the Basal Ganglia Social History Tobacco Use Types Packs/Day Years Used Date Smoking Tobacco: Never Alcohol Use Standard Drinks/Week Comments No 0 (1 standard drink = 0.6 oz pur e alcohol) Sex and Gender Information Value Date Recorded Sex Assigned at Not on file Legal Sex Male 5:39 AM ARCHITECTURAL DESIGNER Gender Identity Not on file Sexual Orientation [...] TOTAL PROTEIN 6.9 6.3 - 8.6 g/dL [facility] POTASSIUM 4.6 3.5 - 4.9 mmol/L [facility] GLUCOSE 74 65 - 99 mg/dL [facility] AST 29 12 - 38 U/L [facility] BUN 15 6 - 20 mg/dL [facility] CALCIUM 9.6 8.6 - 10.2 mg/dL [facility] CHLORIDE 101 96 - 108 mmol/L [facility] ALBUMIN 4.2 3.4 - 4.8 g/dL [facility] CREATININE 1.12 0.67 - 1.17 mg/dL [facility] SODIUM 138 135 - 145 mmol/L [facility] ALT 31 0 - 41 U/L [facility] ALKALINE PHOSPHATASE 75 40 - 129 U/L [facility] BILIRUBIN TOTAL 0.5 0.2 - 1.0 mg/dL [facility] CO2 27 22 - 30 mmol/L [facility] GFR, >60 >=60 mL/min/1.7 sq meter [facility] GFR >60 >=60 mL/min/1.7 sq meter [facility] Comment: Modification of Diet in Renal Disease (MDRD) study formula. Estimated GFR rate interpretative information for both Americans and non- Americans is available on the [facility] Intranet at: [email or web address] Select: Lab Policies and Procedures Select: Reference Ranges - GFR 12/18/2008 1:49 PM CDT 12/18/2008 3:00 PM CDT us Pool Palacios MD CHEMISTRY ORDERABLES Edited INTERFACE SYSTEM Refer to clinic/hospital department [facility] CLIA# [id number] [address] [place] [address] * (ABNORMAL) CBC WITH DIFFERENTIAL (12/18/2008 1:49 PM CDT) MCV 100.8(H) 82.0 - 99.0 fL [facility] PLATELETS 245 140 - 350 K/uL [facility] HEMOGLOBIN 17.1(H) 13.6 - 16.5 g/dL [facility] RDW 13.8 11.5 - 14.5 % [facility] WBC 6.5 4.0 - 9.8 K/uL [facility] MCH 34.5(H) 27.2 - 32.6 pg [facility] MPV 11.3 9.3 - 12.4 fL [facility] HEMATOCRIT 50.0(H) 40.0 - 48.0 % [facility] RDW-STDEV 50.9(H) 37.1 - 48.7 fL [facility] RBC 4.96 4.50 - 5.40 M/uL [facility] MCHC 34.2 31.5 - 35.5 % [facility] NEUTROPHILS 60 45 - 70 % [facility] NEUTROPHIL ABSOLUTE 3.88 1.90 - 7.00 K/uL [facility] EOSINOPHILS 3 0 - 7 % [facility] EOSINOPHIL ABSOLUTE 0.19 0.00 - 0.70 K/uL [facility] LYMPHOCYTES 27 16 - 45 % [facility] LYMPHOCYTE ABSOLUTE 1.76 0.70 - 4.50 K/uL [facility] BASOPHILS 1 0 - 2 % [facility] BASOPHILS ABSOLUTE 0.06 0.00 - 0.20 K/uL [facility] MONOCYTES 9 3 - 13 % [facility] MONOCYTE ABSOLUTE 0.59 0.10 - 1.30 K/uL [facility] 12/18/2008 1:49 PM CDT 12/18/2008 3:01 PM CDT us Pool Palacios MD HEMATOLOGY ORDERABLES Edited INTERFACE SYSTEM Refer to clinic/hospital department [facility] CLIA# [id number] [address] [place] [place] [address] documented in this encounter Visit Diagnoses Diagnosis Other degenerative diseases of the basal ganglia documented in this encounter Care Teams Template Fitter Relationship Specialty Start Date End Date Lucio Oliveira MD [address] [place] [address] PCP - General Family Practice 10/21/18 documented as of this encounter
--- OUTSIDE RECORDS SUMMARY | 2024-11-03 14:19 | XMS_ITS | CONTINUITY OF CARE DOCUMENT ---
Author Name lebron diana Address Unknown Organization [facility] Address [address] [place] [address] Phone [phone] Care Team Providers Care Pst Specialist Name Role Phone Kaitlin GALVAN, Marco Unavailable SCHWMONA NURSERY WORKER, HAIR Unavailable SCHWIND NURSERY WORKER, HAIR Unavailable PROBLEMS Condition Status Date Provider [...] In-person encounter Office Visit Marco Madrigal MD [facility] - In-person encounter Office Visit Scotty Shultz MD [facility] - In-person encounter Office Visit Scotty Shultz MD [facility] PolycythemiaHypogonadism, low testosterone - In-person encounter Office Visit Marco Madrigal MD [facility] - In-person encounter Office Visit Marco Madrigal MD [facility] Other symptoms involving cardiovascular systemSLEEP APNEACOPDHTN [...] Payer name Policy type / Coverage type [employer] [place] ID AETNA MEDICARE Commercial insurance [id number] ADVANCE DIRECTIVES Name Date DISCUSSED - NO [...] half. Orders: 9 9244 MOD C omplex (CPT-[id number]) Scotty Shultz MD Hem/Onc New Patient :The [...] blood work. Orders: E rythropoietin (EPO), Serum (354818) J AK2 V617F Rfx/Exon 12 (535540) C BC (INCLUDES DIFF/PLT) (6399) U RINALYSIS, COMPLETE (5463) 9 9244 MOD C omplex ([id number]) Scotty Shultz MD Cardiology:Refer to Dr. Shultz [...] Name Provider Procedure Notes S tatus SNOMED-CT: 52272387 Physical Exam, Performed: Pulse Exam of Foot Marco Madrigal MD completed EKG Marco Madrigal MD completed SNOMED-CT: 273925011 149577 Current Medications Documented Macro Madrigal MD completed SNOMED-CT: 683841283 181134 Current Medications Documented Scotty Shultz MD completed SNOMED-CT: 449844320 104415 Current Medications Documented Scotty Shultz MD completed SNOMED-CT: 92957893 Physical Exam, Performed: Pulse Exam of Foot Marco Madrigal MD completed SNOMED-CT: 281035028 540396 Current Medications Documented Marco Madrigal MD completed Stress EKG Abi Reed MD completed Regadenoson, 4 units Marco Madrigal MD completed Cardiolite, 2 units Marco Madrigal MD completed SPECT Images Abi Reed MD complet ed SNOMED-CT: 22176981 Physical Exam, Performed: Pulse Exam of Foot Marco Madrigal MD completed SNOMED-CT: 049109981 093170 Current Medications Documented Marco Madrigal MD completed
--- OUTSIDE RECORDS SUMMARY | 2024-11-03 14:19 | XMS_ITS | Clinical Summary ---
Author Organization [facility] Address [address] [place] [address] Phone Care Team Providers Care Marriage And Family Counselor Name Role Phone Lucio Oliveira MD Primary Care Provider [phone] Allergies Active Allergy Reactions Criticality Noted Date [...] Due Date Last Done Comments Influenza Vaccine (Season Ended) 2025 04/29/20 20 Pneumococcal PPSV23/PCV13 65 + Years / High and Highest Risk Completed 08/07/2017, 07/07/2016 Care Teams Marriage And Family Counselor Relationship Specialty Start Date End Date Lucio Oliveira MD [address] [place] [phone] PCP - General Family Medicine 10/16/18
--- OUTSIDE RECORDS SUMMARY | 2024-11-03 14:19 | XMS_ITS | Patient Health Record ---
Author Organization [facility] [employer] Address [address] [place] [address] Care Team Providers Care Ssn/Ssbn Assistant Navigator Name Role Phone TAMMIE JOSEPH MD Primary Care Provider Unavail able Nancy Paige Unavailable [phone] GOKUL CARNEY Unavailable Unavailable Anastasia Sweeney Unavailable [phone] Allergies Allergen (clinical drug ingredient) Drug/Non Drug [...] Oxazepam (BZO) n 0 - 300 ng/ml 3-sgsaocfmzc-8,1-lvkdxrij-4,3-diphenylpyrrolidine (AKBAR P) n 0 - 300 ng/ml Methamphetamine (MET) n 0 - 1000 ng/ml Methylenedioxymethamphetamine (MDMA) n 0 - 500 ng/ml Morphine (MOP 300/[id number]) n 0 - 300 ng/ml Methadone (MTD) n 0 - 300 ng/ml Phencyclidine (PCP) n 0 - 25 ng/ml Nortriptyline (TCA) n 0 - 1000 ng/ml Oxycodone n 0 - 300 ng/ml x n 0 - 300 ng/ml Reason For Referral No Information Medications Medication SIG (Take, Route, Frequency, Duration) Notes Start Date End Date Status Spironolactone 25 MG Oral for 90 Days Active Docusate Sodium 100 MG TAKE 1 CAPSULE BY MOUTH ONCE DAILY NEEDED FOR CONSTIPATION Oral for 30 Days Active Furosemide 40 MG Oral for 90 Days Active Albuterol Sulfate (2.5 MG/3ML) 0.083% Inhalation for 5 Days Acti ve Rosuvastatin Calcium 20 MG Oral for 90 Days Active Sotalol HCl 80 MG Oral for 90 Days Active Tamsulosin HCl 0.4 MG TAKE 1 CAPSULE BY MOUTH AT BEDTIME Oral for 90 Days Active Roflumilast 500 MCG Oral for 90 Days Active Pramipexole Dihydrochloride 1 MG Oral for 90 Days Active traMADol HCl 50 MG TAKE 1 TABLET BY MOUTH TWICE DAILY FOR PAIN Oral for 15 Days Active Albuterol Sulfate HFA 108 (90 Base) MCG/ACT INHALE 2 PUFFS BY MOUTH EVERY 4 HOURS NEEDED FOR SHORTNESS OF BREATH OR WHEEZING Inhalation for 17 Days Active Klor-Con M20 20 MEQ Oral for 90 Days Active Amoxicillin 875 MG TAKE 1 TABLET BY MOUTH EVERY 12 HOURS FOR 5 DAYS Oral for 5 Days Not-Taking Sertraline HCl 25 MG 1 tablet Oral Once a day for 30 days Active Omeprazole 20 MG Oral for 90 Days Active Entresto 49-51 MG Oral for 90 Days Active Jardiance 10 MG Oral for 90 Days Active traZODone HCl 100 MG Oral for 30 Days Active Eliquis 5 MG Oral for 90 Days Active Ferrous Sulfate 325 (65 Fe) MG 1 tablet Orally Three times a Week Active Multivitamin - 1 tablet Orally Once a day Active Vitamin D 50 MCG (2000 UT) 1 tablet Oral ly Once a day Active clonazePAM 0.5 MG TAKE ONE-HALF TABLET BY MOUTH EVERY DAY AT BEDTIME ADMINISTER 30 MINUTES BEFORE BEDTIME Oral for 30 Days Not-Taking Ipratropium Pyote 0.02 % INHALE 1 VIAL IN NEBULIZER THREE TIMES DAILY NEEDED FOR SHORTNESS OF BREATH FOR WHEEZING FOR 1 MONTH (USE IN THE NEBULIZER WITH ALBUTEROL) Inhalation for 24 Days Not-Taking Metoprolol Tartrate 25 MG TAKE 1 TABLET BY MOUTH TWICE DAILY Oral for 90 Days Not-Taking Roflumilast 250 MCG TAKE 1 TABLET BY MOUTH ONCE DAILY FOR 4 WEEKS Oral for 28 Days Not-Taking Roflumilast 250 MCG Oral for 28 Days Not-Taking Albuterol Sulfate (2.5 MG/3ML) 0.083% Inhalation for 30 Days Not-Taking Roflumilast 500 MCG TAKE 1 TABLET BY MOUTH ONCE DAILY Oral for 30 Days Not-Taking Pregabalin 75 MG 1 capsule in the evening 1 to 3 hours before bedtime Orally Once a day Active HYDROcodone-Acetaminophen 5-325 MG Oral for 3 Days Not-Taking Lysine 1000 MG as directed Orally Active HYDROcodone-Acetaminophen 5-325 MG TAKE 1 TO 2 TABLETS BY MOUTH EVERY 6 HOURS NEEDED Oral for 3 Days Not-Taking Trelegy Ellipta 100-62.5-25 MCG/ACT 1 puff Inhalation Once a day Active Cholecalciferol 100 MCG (4000 UT) 1 tablet Orally Once a day Active Balsalazide Disodium 750 MG Oral for 90 Days Not-Taking Lidocaine 5 % 1 patch remove after 12 hours Externally Once a day Active Empagliflozin 10 MG 1 tablet Orally Once a day Active Potassium Chloride 20 MEQ 1 packet with food Orally Once a day Active Aspirin 81 81 MG 1 tablet Orally Once a day Active Balsalazide Disodium 750 MG 2 capsules O rally Twice a day Active Ketorolac Tromethamine 10 MG Oral for 5 Days Not-Taking Ketorolac Tromethamine 10 MG TAKE 1 TABLET BY MOUTH EVERY 6 HOURS NEEDED Oral for 5 Days Not-Taking predniSONE 10 MG Oral for 12 Days Not-Taking Sotalol HCl 80 MG TAKE 1 TABLET BY MOUTH EVERY 12 HOURS Oral for 30 Days Not-Taking methylPREDNISolone 4 MG Oral for 6 Days Not-Taking predniSONE 10 MG TAKE 4 TABLETS DAILY FOR 3 DAYS IN THE MORNING WITH FOOD, DECREASED BY 1 TAB EVERY 3 DAYS UNTIL COMPLETED Oral for 12 Days Not-Taking Eszopiclone 1 MG TAKE 1 TABLET BY MOUTH AT BEDTIME AT SLEEP LAB IF NEEDED AT THE START OF THE TEST DO NOT TAKE AT HOME Oral for 1 Days Not-Taking Eszopiclone 1 MG Oral for 1 Days Not-Taking Sertraline HCl 25 MG 1 tablet Orally Onc e a day for 30 days 07/31/2024 Active methylPREDNISolone 4 MG Oral for 6 Days Not-Taking Social History Tobacco Use: Social History Observation Description Date Details (start date - stop date) Never Smoker NA - NA Sex Assigned At : Social History Observation Description Sex Assigned At Male Tobacco Control (Standard) Question Answer Notes Tobacco use: Nonsmoker Section Notes: Lives in [place] with w hussein of 56 yrs, 2 kids. [place] up [place]. 6 siblings. Education/employment: Retired, worked at [employer] for 33 yrs, then worked at [employer]. service: 4 yrs [employer]. Lives in [place] with w hussein of 56 yrs, 2 kids. Grew up [place]. 6 siblings. Education/employment: Retired, worked at [employer] for 33 yrs, then worked at [employer]. service: 4 yrs [employer]. Lives in [place] with w hussein of 56 yrs, 2 kids. Grew up [place]. 6 siblings. Education/employment: Retired, worked at [employer] for 33 yrs, then worked at [employer]. service: 4 yrs [employer]. Problems Problem Type SNOMED Code ICD Code Onset Dates Problem Status W/U Status Risk Notes Problem Chronic insomnia (789634124) Chronic insomnia (F51.04) Active confirmed Problem Adjustment disorder (37086650) Adjustment disorder with other symptom (F43.29) Active confirmed Problem Obstructive sleep apnea syndrome (59915905) KIRSTEN treated with BiPAP (G47.33) Active confirmed Problem Benign hypertension (51535342) Benign hypertension (I10) 6 Active confirmed Vital Signs Heart Rate 75 /min 09/16/2024 Height-cm 172.72 cm 09/16/2024 Blood pressure diastolic 89 mm Hg 09/16/2024 Weight-kg 127.91 kg 09/16/2024 Height 68 in 09/16/2024 Blood pressure systolic 184 mm Hg 09/16/2024 Weight 282 lbs 09/16/2024 BMI 42.87 kg/m2 09/16/2024 Encounters Encounter Location Date Provider Diagnosis [facility] [address] [facility] [address] [place] [address] 03/21/2024 Anastasia Woloszynek Adjustment disorder with other symptom F43.29 ; Chronic insomnia F51.04 and KIRSTEN treated with BiPAP G47.33 [facility] [address] [facility] [address] [place] [address] 04/18/2024 Anastasia Woloszynek Adjustment disorder with other symptom F43.29 ; Chronic insomnia F51.04 and KIRSTEN treated with BiPAP G47.33 [facility] [address] [place] [address] 07/18/2024 Nancy Paige Adjustment disorder with other symptom F43.29 ; Chronic insomnia F51.04 and KIRSTEN treated with BiPAP G47.33 [facility] [employer] [place] [address] [facility] [address] [place] [address] 09/16/2024 Nancy Paige Chronic insomnia F51.04 ; Adjustment disorder with other symptom F43.29 ; KIRSTEN treated with BiPAP G47.33 and Benign hypertension I10 [facility] [place] [id number] [facility] [address] [facility] [address] [place] [address] 07/31/2024 Nancy Paige Adjustment disorder with other symptom F43.29 [facility] [employer] [place] [address] [facility] [address] [facility] [address] [place] [address] 09/17/2024 Nancy Paige Assessments Encounter Date Diagnosis (ICD Code) Assessment Notes Treatment Notes Treatment Clinical Notes Section Notes 07/31/2024 Adjustment disorder with other symptom (ICD-10 - F43.29) 09/16/2024 Chronic insomnia (ICD-10 - F51.04) Adjustment Disorder - Patient reports stable mood and no concerns regarding mental health Plan: - Continue sertraline 25 mg daily - Monitor for changes in mood or anxiety levels Insomnia - Patient taking Trazodone and Pramipexole at nighttime for sleep - Reports frequent awakenings to urinate and difficulty getting restful sleep Plan: - Encourage follow-up with urologist for further evaluation and management - Encourage follow-up with pulmologist/slee p specialist for further evaluation and management Hypertension - Blood pressure reading high today - Does not check BP regularly at home Plan: - Encouraged purchase of a home blood pressure monitor - Follow up with employee communications coordinator if evelated blood pressure persist - Encouraged to go to urgent care of ER if chest pain develops or concerns symptoms arise Follow-up in 2 months, sooner if concerns arise 03/21/2024 Chronic insomnia (ICD-10 - F51.04) treated [...] treated by sleep medicine MD with trazodone 09/16/2024 Adjustment disorder with other symptom (ICD-10 - F43.29) Adjustment Disorder - Patient reports stable mood and no concerns regarding mental health Plan: - Continue sertraline 25 mg daily - Monitor for changes in mood or anxiety levels Insomnia - Patient taking Trazodone and Pramipexole at nighttime for sleep - Reports frequent awakenings to urinate and difficulty getting restful sleep Plan: - Encourage follow-up with urologist for further evaluation and management - Encourage follow-up with pulmologist/slee p specialist for further evaluation and management Hypertension - Blood pressure reading high today - Does not check BP regularly at home Plan: - Encouraged purchase of a home blood pressure monitor - Follow up with employee communications coordinator if evelated blood pressure persist - Encouraged to go to urgent care of ER if chest pain develops or concerns symptoms arise Follow-up in 2 months, sooner if concerns arise 09/16/2024 KIRSTEN treated with BiPAP (ICD-10 - G47.33) Adjustment Disorder - Patient reports stable mood and no concerns regarding mental health Plan: - Continue sertraline 25 mg daily - Monitor for changes in mood or anxiety levels Insomnia - Patient taking Trazodone and Pramipexole at nighttime for sleep - Reports frequent awakenings to urinate and difficulty getting restful sleep Plan: - Encourage follow-up with urologist for further evaluation and management - Encourage follow-up with pulmologist/slee p specialist for further evaluation and management Hypertension - Blood pressure reading high today - Does not check BP regularly at home Plan: - Encouraged purchase of a home blood pressure monitor - Follow up with employee communications coordinator if evelated blood pressure persist - Encouraged to go to urgent care of ER if chest pain develops or concerns symptoms arise Follow-up in 2 months, sooner if concerns arise 07/18/2024 Chronic insomnia (ICD-10 - F51.04) Assessment [...] assess mental health status after discontinuing Sertraline 09/16/2024 Benign hypertension (ICD-10 - I10) Adjustment Disorder - Patient reports stable mood and no concerns regarding mental health Plan: - Continue sertraline 25 mg daily - Monitor for changes in mood or anxiety levels Insomnia - Patient taking Trazodone and Pramipexole at nighttime for sleep - Reports frequent awakenings to urinate and difficulty getting restful sleep Plan: - Encourage follow-up with urologist for further evaluation and management - Encourage follow-up with pulmologist/slee p specialist for further evaluation and management Hypertension - Blood pressure reading high today - Does not check BP regularly at home Plan: - Encouraged purchase of a home blood pressure monitor - Follow up with employee communications coordinator if evelated blood pressure persist - Encouraged to go to urgent care of ER if chest pain develops or concerns symptoms arise Follow-up in 2 months, sooner if concerns arise 07/18/2024 KIRSTEN treated with BiPAP (ICD-10 - [...] f/u sleep medicine MD Plan Of Treatment Next Appt Details Provider Name:Nancy almeida, 11/14/2024 01:15:00 PM, [address], [address], [place], [address], Insurance Providers Payer Name Payer Address Payer Phone Subscriber Number Group Number Insured Name Patient Relationship to Insured Coverage Start Date Coverage End Date [employer] [address] [place] [phone] [id number] Danial Wilson Self - patient is the insured Medical (General) History Medical History History ICD Code KIRSTEN treated with BiPAP G47.33 Chronic insomnia F51.04 Adjustment disorder with other symptom F 43.29 Benign hypertension I10 Mixed hyperlipidemia E78.2 Restless legs G25.81 Chronic obstructive pulmonary disease J4 4.9 Osteoarthritis M19.90 Stenosis of right carotid artery I65.21 Gastroesophageal reflux disease K21.9 Gout M10.9 Hypogonadism E29.1 Chronic heart failure co-occurrent with normal ejection fraction I50.9 Chronic kidney disease stage 2 N18.2 Persistent atrial fibrillation I48.19 Osteoarthritis M19.90 Stenosis of right carotid artery I65.21 Gout M10.9 Gastroesophageal reflux disease K21.9 Hypogonadism E29.1 Chronic heart failure co-occurrent with normal ejection fraction I50.9 Chronic kidney disease stage 2 N18.2 Surgical History Surgery Date(Month/Year) colon surgery-R hemicolectomy 2014 prostate 1998 cardiac cath cataracts ulnar nerve esophageal dilatation kidney stones TURP Hospitalization History Reason Date(Month/Year) psychotic episode due to bi pap not work ing 01/2024
--- OUTSIDE RECORDS SUMMARY | 2024-11-03 14:19 | XMS_ITS | Encounter Summary ---
Author Organization [facility] Healthcare Address [address] [place] [address] Care Team Providers Care Boiler Operator Name Role Phone Lucio Oliveira MD Primary Care Provider [phone] Lucio Oliveira MD Unavailable [phone] Encounter Details Date Type Department Care Team (Late st Contact Info) Description 12/21/2023 Orders Only [facility] [place] Health Information Management [address] [place] [address] Scanning, Provider Social History Tobacco Use Types Packs/Day Years Used Date Smoking Tobacco: Never Alcohol Use Standard Drinks/Week Comments No 0 (1 standard drink = 0.6 oz pur e alcohol) Sex and Gender Information Value Date Recorded Sex Assigned at Not on file 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
--- OUTSIDE RECORDS SUMMARY | 2024-11-03 14:19 | XMS_ITS | Encounter Summary ---
Author Organization [facility] Healthcare Address [address] [place] [address] Care Team Providers Care Installer Inspector Final Name Role Phone Lucio Oliveira MD Primary Care Provider [phone] Lucio Oliveira MD Unavailable [phone] Encounter Details Date Type Department Care Team (Late st Contact Info) Description 09/08/2024 Orders Only [facility] Health Information Management [address] [place] [id number] Nav Morejon MD [address] [address] Social History Tobacco Use Types Packs/Day Years Used Date Smoking Tobacco: Never Alcohol Use Standard Drinks/Week Comments No 0 (1 standard drink = 0.6 oz pur e alcohol) Sex and Gender Information Value Date Recorded Sex Assigned at Not on file 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 Gender Identity Not on file Sexual Orientation Not on file documented as of this encounter Plan of Treatment Not on file documented as of this encounter Procedures Procedure Name Priority Date/Time Associated Diagnosis Comments CARDIOLOGY DOCUMENT SCAN 09/08/2024 documented in this encounter Results * Cardiology Document Scan (09/08/2024) Anatomical Region Laterality Modality Other us Nav Morejon MD CV CARDIAC SERVICES PROCEDURES F inal Result documented in this encounter Visit Diagnoses Not on filedocumented in this encounter Care Teams Installer Inspector Final Relationship Specialty Start Date End Date Lucio Oliveira MD PCP - General 07/02/19 Lucio Oliveira MD Family Medicine 07/02/19 documented as of this encounter
--- OUTSIDE RECORDS SUMMARY | 2024-11-03 14:19 | XMS_ITS | Clinical Summary ---
Author Organization 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 [address] PCP - General Family Practice 10/21/18
--- OUTSIDE RECORDS SUMMARY | 2024-11-03 14:19 | XMS_ITS | Continuity of Care Document ---
Author Organization [facility] Address [address] [place] [address] Phone Care Team Providers Care Telegraph Repeater Technician Name Role Phone Rebecca Rowland Unavailable Unavailable Procedures Procedure Date Eye Exam, New Patient Refraction Advance Directives Directive Yes / No Effective Date File Name No Information Encounters Encounter Description Practice Location Reason(s) For Visit Diagnoses Date Provider Providers Copied on Encounter [facility], [address], [place], [place], [id number], [place] tel:[phone] [facility] No Information 0-201 0 Janett Fernandez. [address] , [address], [place], [address], [place]. tel:[phone] Family History Family Member Type Diagnosis Age At Onset No Information Payers Payer name Insurance type Covered constitution party ID Authoryamilaa shereeneeraj(s) [employer] Plan [id number] Social History Type Description Quantity Date Captured [...]
== END 2024-11-03 12:41 | disposition home or self-care (01) ==
PROVIDERS: PCP Family Medicine; Visit Provider Nurse Practitioner Family
DX: R94.8 Abnormal results of function studies of other organs and systems (principal); K80.20 Calculus of gallbladder without cholecystitis without obstruction; K82.8 Other specified diseases of gallbladder
CPT/HCPCS: 78226; A9537

== ENCOUNTER 2024-11-24 10:51 | Outpatient (CLI) | payer MEDICARE, SELFPAY ==
--- NOTE | ~2024-11-24 | XR_ITS ---
CHEST RADIOGRAPH, PA AND LATERAL CLINICAL HISTORY: R05.9 - Cough, unspecified . Biliary dyskinesia. COMPARISON: 10/04/2024 TECHNIQUE: PA and lateral views of the chest. FINDINGS The cardiomediastinal silhouette is unremarkable. Diffuse interstitial thickening is detected bilaterally, likely chronic. Elevation of the right hemidiaphragm with adjacent compressive atelectasis. The remainder of the lungs are clear. IMPRESSION: Diffuse interstitial thickening, likely chronic, without focal infiltrate or effusion. Reviewed, dictated and finalized at location A. IMPRESSION: Diffuse interstitial thickening, likely chronic, without focal infiltrate or ef fusion.
== END 2024-11-24 10:52 | disposition home or self-care (01) ==
LOC: MICIMG 10:52
PROVIDERS: PCP Family Medicine; Visit Provider Nurse Practitioner Family
DX: J43.9 Emphysema, unspecified (principal); J84.9 Interstitial pulmonary disease, unspecified
CPT/HCPCS: 71046

== ENCOUNTER 2024-12-03 15:33 | Emergency (ER) | payer MEDICARE, SELFPAY ==
--- NOTE | ~2024-12-03 | CT_ITS ---
CLINICAL INDICATION: Renal calculi COMPARISON: 08/27/2024. TECHNIQUE: Multiple contiguous axial images of the abdomen and pelvis were performed following the ad ministration of with 100 mL Omnipaque-350 intravenous contrast The dose-length product (DLP) was 1918.56 mGy-cm. Automated exposure control and iterative reconstruction technique were employed. FINDINGS/OBSERVATIONS: Visualized lower thorax: Trace bibasilar atelectasis. Interstitial thickening is detected bilaterally with honeycombing and cylindrical bronchiectasis. The heart is enlarged, without pericardial effusion. Small hiatal hernia is present. Liver: The liver demonstrates homogeneous enhancement and is borderline enlarged measuring 19 cm in longitud inal dimension. Gallbladder and biliary system: The gallbladder is only minimally distended, with layering stones, and is otherwise unremarkable. Pancreas: The pancreas enhances homogeneously without ductal dilatation. Spleen: Punctate calcifications identified within the splenic parenchyma, suggesting prior granulomat ous disease. The remainder of spleen otherwise enhances homogeneously and is not enlarged. Kidneys: Innumerable well-circumscribed foci of decreased attenuation within the left kidney, likely renal cys ts. The lower extremity previously detected within the upper pole of the right kidney is no longer seen. A right-sided double-J stent is present, in good position. A punctate focus of air is identified within an upper pole calyx suggesting recent intervention. Adrenal glands: Unremarkable. Gastrointestinal tract: Colonic diverticulosis without surrounding inflammatory change. Appendix: The appendix is not definitively visualized. However, no pericecal inflammatory change is identified suggest the presence of acute appendicitis. Vasculature: Unremarkable. Lymph nodes: No pathologically enlarged or morphologically suspicious lymph nodes within the retroperitoneum or at the root of the mesentery. Pelvic structures: The bladder is decompressed, and contains the distal pigtail, and position.. The prostate gland is not enlarged. Body wall and musculoskeletal: Significant degenerative disease within the lumbosacral spine, unchanged from prior. IMPRESSION: Interval placement of a right-sided double-J stent, in good position, as detailed above. Reviewed, dictated and finalized at location A. IMPRESSION: Interval placement of a right-sided double-J stent, in good position, as detail ed above.
--- OUTSIDE RECORDS SUMMARY | 2024-12-03 15:37 | XMS_ITS | Clinical Summary ---
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 0 0 12/12/19 15 Active furosemide (LASIX) 40 mg tablet Take 1 tablet (40 mg total) by mouth daily 03/08/20 17 Active rosuvastatin (CRESTOR) 20 mg tablet Take 1 tablet (20 mg total) by mouth daily 10/02/19 19 Active potassium chloride ER (KLOR-CON) 20 mEq CR tablet Take 1 tablet (20 mEq total) by mouth as needed 12/17/19 19 Active balsalazide (COLAZAL) 750 mg capsule TAKE 3 CAPSULES TWICE A DAY 4 02/15/20 19 Active albuterol 2.5 mg /3 mL (0.083 %) nebulizer solution Take 3 mL (2.5 mg total) by nebulization 4 (four) times a day 06/19/20 19 Active multivitamin capsule daily Active [...] BEDTIME 180 tablet 3 05/30/20 21 Active albuterol HFA (PROVENTIL HFA,VENTOLIN HFA,PROAIR HFA) 90 mcg/actuation inhaler 06/27/20 21 Active traZODone (DESYREL) 100 mg tabletIndicatio ns:Periodic limb movement disorder,Persis tent disorder of initiating or maintaining sleep Take 1-2 tablets every night at bedtime. 180 tablet 3 10/14/19 22 Active fluticasone-ume clidin-vilanter (Trelegy Ellipta) 100-62.5-25 mcg inhaler Inhale 1 puff daily Active traMADoL (ULTRAM) 50 mg tablet Take 1 tablet (50 mg total) by mouth every 6 (six) hours as needed for pain 09/11/19 23 Active spironolactone (ALDACTONE) 25 mg tablet Take 1 tablet (25 mg total) by mouth every morning 90 tablet 3 05/09/20 23 Active tamsulosin (FLOMAX) 0.4 mg extended release capsule [...] 24 Active roflumilast (DALIRESP) 500 mcg tablet 1 tablet (500 mcg total) daily 11/07/19 24 Active lysine 1,000 mg tablet [...] a day 180 tablet 10/09/19 25 Active ciprofloxacin (CIPRO) 500 mg tablet Take 1 tablet (500 mg total) by mouth 2 (two) times a day 6 tablet 12/03/19 25 Active traMADoL (ULTRAM) 50 mg tablet Take 1 tablet (50 mg total) by mouth every 6 (six) hours as needed for pain 10 tablet 12/03/19 25 Active lysine (L-LYSINE) 500 mg tablet 500 mg. 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 Urolith 11/10/2024 Overactive bladder 11/10/2024 H/O cardiomyopathy 05/09/2023 Chronic anticoagulation 11/03/2022 CKD (chronic kidney disease) stage 3, GFR 30-59 ml/min 09/14/2022 Persistent atrial fibrillation 07/19/2022 Atrial flutter 07/19/2022 Other thrombophilia 07/19/2022 Chronic heart failure with preserved ejection fr action 08/09/2021 Benign hypertension with CKD (chronic kidney disease), stage II 08/09/2021 Coronary artery disease invo lving [place] coronary artery of [place] heart without angina pectoris 08/09/2021 Cough productive [...] 10/19/2017 Assessment & Plan (06/30/2019 1:54 PM SCALE OPERATOR): He will try to get 30 minutes [...] elevator. Assessment & Plan (06/07/2018 1:52 PM SCALE OPERATOR): Obesity is improving with lifestyle modifications. Discussed [...] hours. Assessment & Plan (06/30/2019 1:53 PM SCALE OPERATOR): He will wear his VPAP auto nightly [...] at 22/14 cm water pressure to provider plus for repair replace. Machine needs to be [...] titration. Assessment & Plan (06/07/2018 1:52 PM SCALE OPERATOR): He will wear his bilevel machine nightly [...] bedtime. Assessment & Plan (06/07/2018 1:52 PM SCALE OPERATOR): He will try to practice good sleep [...] bedtime. Assessment & Plan (06/30/2019 1:54 PM SCALE OPERATOR): He will take clonazepam 2 mg every [...] without comorbidity) 11/16/2016 10/19/2017 Testicular hypofunction 06/08/2016 11/2023 Body mass index 40+ - severely [...] Encounters Date Type Department Care Team Description 12/02/2024 11:18 AM CDT Anesthesia Event [facility] [address] [place] [address] Rick Platt MD Reynolds, Rinku Reinoso MD 12/02/2024 11:05 AM CDT - 12/02/2024 12:35 PM CDT Surgery [facility] [address] [place] [address] Sherice Santos MD CYSTOSCOPY, RIGHT RETROGRADE PYELOGRAM, RIGHT URETEROSCOPIC STONE EXTRACTION, RIGHT LASER LITHOTRIPSY, RIGHT URETERAL STENT PLACEMENT, BIOPSY OF URETHRAL LESION WITH Fulgeration 12/02/2024 9:10 AM CDT - 12/02/2024 1:57 PM CDT Hospital Encounter [facility] [address] [place] [address] Sherice Santos MD Urethral tumor; Calculus of other lower urinary tract location; Overactive bladder Discharge Disposition: Discharge to home or self care 11/17/2024 Telephone [facility] [address] [place] [address] Heber Alvarado MD Pre-op Urology 09/18/2024 Orders Only [facility] [address] [place] [id number] Nav Morejon MD 09/15/2024 Telephone [facility] [address] [place] [address] Heber Alvarado MD samples 09/08/2024 Orders Only [facility] Health Information Management [address] [place] [id number] Nav Morejon MD from Last 3 Months [...] BIOPSY COLON SURGERY APPENDECTOMY 07/30/2018 - 07/29/2019 LITHOTRIPSY CARDIOVERSION 07/30/2022 - 08/29/2022 Medical History Medical History Date Comments Gastroesophageal reflux disease GERD - Gastro-esophageal reflux disease; Comments: AKV 12/08/2014 - Hypertension Hypertension Adiposity Obesity Depression Depression Hyperlipidemia COPD (chronic obstructive pu lmonary disease) (HCC) Sleep apnea Pulmonary embolus (HCC) Chronic bronchitis (HCC) Cataracts, bilateral Gout Enlarged prostate Chronic kidney disease 3 Atrial fibrillation and flutter (HCC) Chronic heart failure with p reserved ejection fraction (HCC) CAD (coronary artery disease) RLS (restless legs syndrome) Ulcerative colitis (HCC) Kidney stone Family History Medical History Relation Name Comments [...] Date Smoking Tobacco: Never Smokeless Tobacco: Never Tobacco Cessation:Counseling Given: Not Answered Alcohol Use Standard Drinks/Week Comments No 0 (1 standard drink = 0.6 oz pur e alcohol) AUDIT-C Answer Date Recorded Q1: How often do you have a drink containing alcohol? Never 12/02/2024 Q2: How many drinks containi ng alcohol do you have on a typical day when you are drinking? Patient does not drink Q3: How often do you have si x or more drinks on one occasion? Never 12/02/2024 Personal Safety Answer Date Recorded Have you ever been in or are you currently in a harmful physical or emotional relationship or is someone making you feel afraid or unsafe? Denies 12/02/2024 Sex and Gender Information Value Date Recorded Sex Assigned at Not on file Legal Sex Male 2:18 AM SCALE OPERATOR Gender Identity Not on file Sexual Orientation Not on file Obstetrics History Last Filed Vital Signs Vital Sign Reading Time Taken Comments Blood Pressure 165/70 12/02/2024 1:30 PM CDT Pulse 75 12/02/2024 1:30 PM CDT Temperature 36.1 C (97 F) 12/02/2024 1:30 PM CDT Respiratory Rate 22 12/02/2024 1:30 PM CDT Oxygen Saturation 95% 12/02/2024 1:30 PM CDT Inhaled Oxygen Concentration - - Weight 127.6 kg (281 lb 4.9 oz) 12/02/2024 9:25 AM CDT Height 175.3 cm (5' 9 ) 12/02/2024 9:25 AM CDT Body Mass Index 41.54 12/02/2024 9:25 AM CDT Plan of Treatment Health Maintenance [...] 07/30/2020 06/04/2020 Lipid Panel 11/04/2023 11/03/2022, 08/09/2021 eGFR 06/14/2024 06/14/2023, 04/29, 09/11/2022 Influenza Vaccine (Season Ended) 2025 04/29/2020, 04/29/2019, 04/29/2018 Pneumococcal vaccine 65+ Completed 08/07/2017, 12/0 03/2016 Medical Devices Implanted Type Area Surgical Services Assistant Device Identifier Shelf Expiration Date Model / Serial / Lot [employer] Maximo Stent Ureteral Set Double Pigtail Tapered Tip Contour [id number] Hydroplus Coated [id number] - [id number] Implanted:Qty: 1 on 12/02/2024 by Sherice Santos MD at [facility] Right: Ureter [employer] Maximo 06/18/2027 [id number] / / [id number] Procedures Procedure Name Priority Date/Time Associated Diagnosis Comments DE AN ELECTIVE ENDOTRACHEAL AIRWAY Routine 12/02/2024 11:31 AM CDT ECG 12-LEAD STAT 12/02/2024 9:46 AM CDT POTASSIUM, WHOLE BLOOD STAT 12/02/2024 9:35 AM CDT CARDIOLOGY DOCUMENT SCAN Routine 09/08/2024 2:13 PM SCALE OPERATOR CARDIOLOGY DOCUMENT SCAN 09/08/2024 BASIC METABOLIC PANEL Routine 06/14/2023 1:49 PM SCALE OPERATOR Chronic heart failure with preserved ejection fraction (HCC) Benign hypertension with CKD (chronic kidney disease), stage II H/O cardiomyopathy POCT LIPID PANEL Routine 11/03/2022 1:10 PM CDT Coronary artery disease involving [place] coronary artery of [place] heart without angina pectoris Mixed hyperlipidemia from Last 3 Months or Most Recently Relevant to Health Maintenance Results * DE AN ELECTIVE ENDOTRACHEAL AIRWAY (12/02/2024 11:31 AM CDT) Narrative Toby Juarez CRNA - 12/02/2024 11:31 AM CDT Toby Juarez CRNA 12/02/2024 11:31 AM Airway Patient location: OR Urgency: elective Date/time: 12/02/2024 11:26 AM Indications for airway management: anesthesia and airway protection Difficult airway: no Staff: Placed by: MANAGER MOUNTAIN: Toby Juarez CRNA Emergent airway documentation: Risks and benefits discussed: yes Consent obtained: yes Consent given by: patient Airway prep: Preoxygenated: yes Patient position: sniffing Mask difficulty assessment: 0 - not attempted Spontaneous ventilation during airway: absent Sedation level during airway: GA Final airway details: Final airway type: endotracheal airway Tube type: ETT ETT size: 7.5 mm Cuffed: yes Technique used for successful ETT placement: video laryngoscopy Devices/Methods used in placement: intubating stylet Insertion site: oral Blade type: Kirstin Video blade type: Bradley Blade size: 4 Cormack-Lehane (video): grade I - full view of glottis Cuff volume: 8 mL Cuff inflated with: air ETT to lips: 22 cm Placement verified by: auscultation and CO2 detection Airway secured with: silk tape Number of attempts: 1 Planned trial extubation: yes Additional comments: Atraumatic intubation. No GERD sx today. Dentition/lips/oral cavity same as preop us Rick Platt MD ANESTHESIA ORDERABLES Final Result * ECG 12 lead (12/02/2024 9:46 AM CDT) 12/02/2024 9:46 AM CDT Narrative [facility] - 12/02/2024 3:40 PM CDT Vent Rate: 60 bpm RR Interval: 994 msec DE Interval: 136 msec QRS Duration: 146 msec QT Interval: 460 msec QTC Interval: 460 msec P-R-T [place]: -42 - -48 - 18 degrees IMPRESSION: SINUS RHYTHM RIGHT BUNDLE BRANCH BLOCK [120+ ms QRS DURATION, UPRIGHT V1, 40+ ms S IN I/aVL/V4/V5/V6] LEFT ANTERIOR FASCICULAR BLOCK [QRS AXIS <= -45, QR IN I, RS IN II] VOLTAGE CRITERIA FOR LVH [MEETS CRITERIA IN ONE OF: R(aVL), S(V1), R(V5), R(V5/V6)+S(V1)] POSSIBLE SEPTAL MYOCARDIAL INFARCTION , PROBABLY OLD [30 ms Q WAVE IN V1/V2] ABNORMAL ECG Electronically Signed By: John Post MD us Rinku Coates MD ECG ORDERABLES Final Result Performing Organization Address City/[facility]/ZIP Co de Phone Number [facility] * Potassium, whole blood (12/02/2024 9:35 AM CDT) Pathologist [facility] Potassium, bld 3.6 3.3 - 4.9 mmol/L Comment: Interpretive Data This method is not able to assess for hemolysis, which may falsely increase potassium concentrations. If further testing is needed to evaluate this result, consider in-laboratory plasma potassium. Current Interpretive Data was last revised on 2022. Blood 12/02/2024 9:35 AM CDT 12/02/2024 9:48 AM CDT Result [facility] Rinku Coates MD LAB BLOOD ORDERABLES F inal Result Performing Organization Address [facility] Co de Phone Number VONDA WILLIAMSON ([place]) [facility] [place] [address] * Cardiology Document Scan (09/08/2024 2:13 PM SCALE OPERATOR) Anatomical Region Laterality Modality Other Nav Morejon MD [facility] PROCEDURES F inal Result * Cardiology Document Scan (09/08/2024) Anatomical Region Laterality Modality Other Nav Morejon MD CV CARDIAC SERVICES PROCEDURES F inal Result * (ABNORMAL) Basic metabolic panel (06/14/2023 1:49 PM SCALE OPERATOR) Pathologist [facility] Glucose 79 70 - 99 mg/dL [facility] [...] [facility] - 01 Blood 06/14/2023 1:49 PM SCALE OPERATOR 06/14/2023 Narrative [facility] - 06/15/2023 9:11 AM SCALE OPERATOR Performed at: 01 - [address] [id number] School Superintendent: Uday Morocho PhD, Phone: [phone] Specimen Comment: A courtesy copy of this report has been sent to [facility], Specimen Comment: [phone] Rey Pal MD LAB BLOOD ORDERABLES Fin al Result [facility] - 01 * POCT lipid panel (11/03/2022 1:10 PM CDT) Pathologist [facility] Cholesterol, POC 128 mg/dL Comment:GLU = 134 [...] Relevant to Health Maintenance Insurance [employer] MED[employer]ARE [facility] MEDICARE Address: [id number] [place] [phone] MEDICARE [facility] MEDICARE Care Teams 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
--- OUTSIDE RECORDS SUMMARY | 2024-12-03 15:37 | XMS_ITS | Encounter Summary ---
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] Calculus of other lower urinary tract location [N21.8] Overactive bladder [N32.81] Procedures KY CYSTO/URETERO W/LITHOTRIPSY &INDWELL STENT INSRT KY BIOPSY URETHRA KY CYSTO W/URETEROSCOPY W/RMVL/MANJ STONES CYSTOSCOPY, RIGHT URETEROSCOPIC STONE EXTRACTION, LITHOTRIPSY, RIGHT STENT PLACEMENT, BIOPSY OF URETHRAL LESION WITH AWAD CATHETER PLACEMENT Referral ID Status Reason Start Date Expiration Date Visits Re quested Visits Authorized [id number] 1 1 Encounter Details Date Type Department Care Team (Late st Contact Info) Description 12/02/2024 11:18 AM CDT Anesthesia Event [facility] Operating Room [address] [place] [address] Rick Platt MD [address] [place] [address] Rinku Coates MD [address] [place] [address] Anesthesia Record Procedure Summary Procedure Name Responsible Anesthesiologist Anesthesia Start Time Anesthesia Stop Time CYSTOSCOPY, RIGHT RETROGRADE PYELOGRAM, RIGHT URETEROSCOPIC STONE EXTRACTION, RIGHT LASER LITHOTRIPSY, RIGHT URETERAL STENT PLACEMENT, BIOPSY OF URETHRAL LESION WITH Fulgeration (Right: Perineum) Rick Platt MD 12/02/24 1118 12/02/24 1216 Events Date Time Event Comment 12/02/2024 1040 1118 In Room 1118 An Start 1119 An Start Data 1125 An Induction The patient was reevaluated immediately before moderate or deep sedation use and before anesthesia induction. 1126 An Intubation 1127 Anesthesia Ready 1128 an lawrence now 1130 Proc Start 1201 Proc Fin 1210 An Extubation 1211 an stop data 1211 Out of Room 1216 Handoff to RN I completed my handoff to the receiving nurse during which we: 1. Patient identified 2. Responsible provider identified 3. Pertinent medical history reviewed 4. Procedure type and surgical course discussed 5. Intraoperative anesthetic management and any significant issues discussed 6. Expectations and concerns for postop period discussed 7. Questions solicited from receiving nurse 8. Patient disposition at the time of handoff: No value filed. 1216 An Stop Meds Name Total hydrALAZINE 15 mg fentaNYL 50 mcg propofol 300 mg lidocaine (cardiac) syringe 2 % 100 mg succinylcholine 160 mg ondansetron 4 mg ceFAZolin (ANCEF) 1 gram/10 mL in steril e water (premix) 3,000 mg 3,000 mg phenylephrine 0.5 mg/5 mL (100 mcg/mL) v ial 100 mcg Lactated Ringer's (LR) infusion 600 mL * Agents Name O2% N2O O2 N2O Air Sevoflurane Inspired Sevoflurane * Blood No blood administrations on file. Lines, Drains, and Airways Type Details Placement Removal Wound 12/02/24; 1152; N; Non-incision; Penis; cystoscopy and ureteroscopy 12/02/24 1152 by Indira Walker RN Peripheral IV Placement Date: 01/21; Placement Time: 935; Catheter Size: 20 G; Orientation: Anterior, Left, Proximal; Location: Forearm; Removal Date: 12/02/24; Removal Time: 1350; Removal Reason: Discharge 12/02/24 0936 by Willard May RN 12/02/24 1350 by Willard May RN ETT Placement Date: 01/21; Placement Time: 1131 (created via procedure documentation); Mask Ventilation: 0; Technique: Video laryngoscopy; Type: ETT - single; Single Lumen Tube Size: 7.5 mm; Cuffed: Yes; Laryngoscope: Kirstin; Blade Size: 4; Location: Oral; Insertion Attempts: 1; Placement Verification: Auscultation, Capnometry; Airway Comment: Atraumatic intubation. No GERD sx today. Dentition/lips/oral cavity same as preop; Removal Date: 12/02/24; Removal Time: 1210 12/02/24 1131 by Toby Juarez CRNA 12/02/24 1210 by Toby Juarez CRNA documented in this encounter Social History Tobacco Use Types Packs/Day Years [...] on file Legal Sex Male 2:18 AM [employer] Gender Identity Not on file Sexual Orientation Not on file documented as of this encounter Functional Status * Audit-C Score Answer Date of Assessment Author 0 12/02/2024 9:15 AM Willard Gamino RN * Question Answer Date of Assessment Author Q1: How often do you have a drink containing alcohol? Never 12/02/2024 9:15 AM CDT Willard May RN Q2: How many drinks containing alcohol do you have on a typical day when you are drinking? Patient does not drink 12/02/2024 9:15 AM CDT Willard May RN Q3: How often do you have six or more drinks on one occasion? 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 Overactive bladder (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]) (Calculus of other lower urinary tract location [N21.8]) (Overactive bladder [N32.81]) Providers: Sherice Santos MD Responsible Provider: Rick Platt MD Anesthesia Type: general ASA Status: 4 Anesthesia Type: general Last vitals BP 166/71 Pulse 68 Temp 36.2 ??C (97.1 ??F) (Temporal) Resp 21 SpO2 94% Anesthesia Post Evaluation Patient location during evaluation: PACU Patient participation: complete - patient participated Level of consciousness: fully awake Pain score: 0 Pain management: adequate Airway patency: adequate Evidence of recall: no Cardiovascular status: acceptable Respiratory status: acceptable Hydration status: acceptable Pt is: normothermic Nausea/Vomiting status: none No notable events documented. * Anesthesia Procedure Notes - Toby Juarez CRNA - 12/02/2024 11:31 AM CDTAssociated Order(s): Airway Airway Patient location: OR Urgency: elective Date/time: 12/02/2024 11:26 AM Indications for airway management: anesthesia and airway protection Difficult airway: no Staff: Placed by: CASE MANAGER SPECIALIST: Toby Juarez CRNA Emergent airway documentation: Risks [...] sx today. Dentition/lips/oral cavity same as preop * Anesthesia Preprocedure Evaluation - Rick Platt MD - 12/02/2024 10:31 AM CDT Images from the original note were not included. Anesthesia Evaluation Danial Wilson is a 78 y.o. 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 Information obtained during: In Person Neurological + CVA/Stroke + ICA stenosis - right internal carotid artery. Cardiovascular + Hypertension + CAD + CHF (ECHO 09/08/2024) LVEF: 60-70%. + Atrial fibrillation/flutter - + DVT/PE Comments: Recently seen and cleared by cardiology, has not taken BP meds for few days cardiology office also with increased BP, August ECHO of this year reviewed. BP treated will follow, pt is symptomatic at baseline, no recent change, it seems patient has history of problems with medications, given stone and baseline CKD with recent ECHO results this may be medical optimization for Mr Wilson and do not want to risk further renal damage/hydronephrosis/fluid overload/CHF exacerbation from stone, will proceed with anesthesia Respiratory + Sleep apnea (KIRSTEN) Prescribed device: PAP occasionally compliant. Gastrointestinal + GERD Renal / + Renal disease - CKD Endocrine / Other + Obesity (BMI >30)- morbid obesity (BMI>40). Review of Systems Pertinent negatives: SOB (LAY baseline longstanding) and chest pain Patient Active Problem List Diagnosis Date Noted Urethral tumor 11/10/2024 Urolith 11/10/2024 Overactive bladder 11/10/2024 H/O cardiomyopathy 05/09/2023 Chronic anticoagulation 11/03/2022 CKD (chronic kidney disease) stage 3, GFR 30-59 ml/min ([facility]) 09/14/2022 Persistent atrial fibrillation ([facility]) 07/19/2022 Atrial flutter ([facility]) 07/19/2022 Other thrombophilia 07/19/2022 Chronic heart failure with preserved ejection fraction ([facility]) 08/09/2021 Benign hypertension with CKD (chronic kidney disease), stage II 08/09/2021 Coronary artery disease involving nez perce coronary artery of nez perce heart without angina pectoris 08/09/2021 Cough productive of clear sputum 11/11/2019 Stenosis of right carotid artery 07/02/2019 Acute meniscal tear of left knee 06/03/2019 Hoarseness 04/04/2019 Morbid obesity with body mass index (BMI) of 40.0 to 44.9 in adult ([facility]) 10/19/2017 Muscle spasm of left lower extremity 04/13/2017 Hypercoagulable state 01/24/2017 Erythrocytosis 07/13/2016 Mixed hyperlipidemia 07/13/2016 Simple chronic bronchitis (HCC) 07/13/2016 Testicular hypofunction 06/07/2016 Chronic obstructive pulmonary disease (HCC) 04/20/2016 Leg pain, bilateral 04/20/2016 Cardiovascular symptoms 04/19/2016 Gastroesophageal reflux disease 04/19/2016 Gout 04/19/2016 Pain in lower limb 04/19/2016 Dyspnea on exertion 04/11/2016 Restless legs 06/18/2015 KIRSTEN treated with BiPAP 12/11/2014 Persistent disorder of initiating or maintaining sleep 12/11/2014 Periodic limb movement disorder 12/11/2014 Benign hypertension 12/11/2014 Persistent insomnia 12/11/2014 Shortness of breath 02/06/2014 Encounter for long-term (current) use of other medications 12/18/2008 Myoclonus 08/07/2008 Past Medical History: Diagnosis Date Adiposity Obesity Atrial fibrillation and flutter (HCC) CAD (coronary artery disease) Cataracts, bilateral Chronic bronchitis (HCC) Chronic heart failure with preserved ejection fraction (HCC) Chronic kidney disease 3 COPD (chronic obstructive pulmonary disease) (HCC) Depression Depression Enlarged prostate Gastroesophageal reflux disease GERD - Gastro-esophageal reflux disease; Comments: AKV 12/08/2014 - Gout Hyperlipidemia Hypertension Hypertension Kidney stone Pulmonary embolus (HCC) RLS (restless legs syndrome) Sleep apnea Ulcerative colitis (HCC) Past Surgical History: Procedure Laterality Date APPENDECTOMY 2019 CARDIAC CATHETERIZATION Cardiac cath CARDIOVERSION 07/2022 CARPAL TUNNEL RELEASE carpal tunnel surgery COLON BIOPSY COLON SURGERY HEMORRHOID SURGERY hemorroidectomy LITHOTRIPSY TRANSURETHRAL RESECTION OF PROSTATE TURP Allergies Allergen Reactions Codeine Nausea & Vomiting Methylprednisolone Nausea & Vomiting and Nausea And Vomiting Influen Tr-Split 2004 Vac (Pf) Rash Other Unknown Prednisone Nausea And Vomiting Med List Status: Nurse Complete Set By: Anu Mason RN at 11/26/2024 9:30 AM Taking? Last Dose Start Date End Date Provider albuterol 2.5 mg /3 mL (0.083 %) nebulizer solution Past Week 06/19/19 -- Jean Claude Ross MD albuterol HFA (PROVENTIL HFA,VENTOLIN HFA,PROAIR HFA) 90 mcg/actuation inhaler Past Week 06/27/21 -- Jean Claude Ross MD apixaban (ELIQUIS) 5 mg tablet Past Week 11/27/23 -- Rey Pal MD Take 1 tablet (5 mg total) by mouth 2 (two) times a day aspirin 81 mg enteric coated tablet Past Week -- -- Jean Claude Ross MD balsalazide (COLAZAL) 750 mg capsule Past Week 02/14/19 -- Jean Claude Ross MD cholecalciferol (VITAMIN D-3) 1,000 unit capsule Past Week -- -- Jean Claude Ross MD docusate sodium (COLACE) 100 mg capsule Past Week -- -- Provider, Historical, MD empagliflozin (JARDIANCE) 10 mg tablet Past Week 10/24/23 -- Rey Pal MD Take 1 tablet (10 mg total) by mouth daily ferrous sulfate 325 mg (65 mg of elemental iron) tablet Past Week -- -- Jean Claude Ross MD yxcjooihgpg-hbmfcikkd-krlltufa (Trelegy Ellipta) 100-62.5-25 mcg inhaler Past Week -- -- Jean Claude Ross MD furosemide (LASIX) 40 mg tablet Past Week 03/08/17 -- Jean Claude Ross MD lysine 1,000 mg tablet Past Week 07/30/69 -- Jean Claude Ross MD multivitamin capsule Past Week -- -- Jean Claude Ross MD omeprazole (PriLOSEC) 20 mg capsule Past Week 12/11/14 -- Slick Adams MD 20 mg. potassium chloride ER (KLOR-CON) 20 mEq CR tablet Past Week 12/16/18 -- Jean Claude Ross MD pramipexole (MIRAPEX) 1 mg tablet 12/01/2024 05/30/21 -- Cynthia Guo NP TAKE 1 TO 2 TABS 2-3 HOURS PRIOR TO BEDTIME pregabalin (LYRICA) 25 mg capsule Past Week -- -- Jean Claude Ross MD roflumilast (DALIRESP) 500 mcg tablet 12/01/2024 11/07/23 -- Jean Claude Ross MD rosuvastatin (CRESTOR) 20 mg tablet Past Week 10/01/18 -- Jean Claude Ross MD sacubitriL-valsartan (ENTRESTO) 49-51 mg tablet Past Week 10/08/24 -- Heber Alvarado MD Take 1 tablet by mouth 2 (two) times a day sertraline (ZOLOFT) 25 mg tablet Past Week -- -- Jean Claude Ross MD sotaloL (BETAPACE) 80 mg tablet Past Week 01/15/24 -- Xiomara Fisher NP Take 1 tablet (80 mg total) by mouth every 12 (twelve) hours Notes: Discontinue metoprolol spironolactone (ALDACTONE) 25 mg tablet Past Week 05/09/23 -- Rey Pal MD Take 1 tablet (25 mg total) by mouth every morning tamsulosin (FLOMAX) 0.4 mg extended release capsule Past Week 06/06/23 -- Provider, MD Jean Claude traMADoL (ULTRAM) 50 mg tablet Past Week 09/11/22 -- ProviderJean Claude MD traZODone (DESYREL) 100 mg tablet 12/01/2024 10/13/21 -- Cynthia Guo NP Take 1-2 tablets every night at bedtime. Current Facility-Administered Medications: Carrier Fluids for Secondary Infusion - 0.9% Sodium Chloride, 30 mL, intravenous, PRN ceFAZolin (ANCEF) 1 gram/10 mL in sterile water (premix) 3,000 mg, 3,000 mg, intravenous, Once Lactated Ringer's (LR) infusion, 30 mL/hr, intravenous, Continuous, Last Rate: 30 mL/hr at 950, 30 mL/hr at 12/02/24 0950 sodium chloride 0.9% flush 0.5-20 mL, 0.5-20 mL, intra-catheter, PRN Facility-Administered Medications Ordered in Other Encounters: hydrALAZINE (APRESOLINE) injection, , intravenous, PRN, 15 mg at 12/02/24 1029 Social History Tobacco Use Smoking Status Never Smokeless Tobacco Never Alcohol Use: Not At Risk (12/02/2024) AUDIT-C Frequency of Alcohol Consumption: Never Average Number of Drinks: Patient does not drink Frequency of Binge Drinking: Never Substance and Sexual Activity Drug Use Never Family History Problem Relation Age of Onset Prostate cancer Father Cancer, prostate; Hypertension Father Hypertension; Rheumatic fever Mother Rheumatic fever; Lung cancer Sister COPD Brother Prostate cancer Brother Diabetes Sister Heart disease Sister Heart disease Brother Vitals: 12/02/24 0925 12/02/24 1030 BP: (!) 221/98 (!) 202/83 Pulse: 59 Resp: 20 Temp: 36.6 ??C (97.8 ??F) SpO2: 96% PT: No results found for requested labs within last 30 days. INR: No results found for requested labs within last 30 days. APTT: No results found for requested labs within last 30 days. Hgb A1C: No results found for requested labs within last 30 days. CBC RBC: No results found for requested labs within last 30 days. RDW: No results found for requested labs within last 30 days. MCHC: No results found for requested labs within last 30 days. MCH: No results found for requested labs within last 30 days. MCV: No results found for requested labs within last 30 days. Hct: No results found for requested labs within last 30 days. Hgb: No results found for requested labs within last 30 days. WBC: No results found for requested labs within last 30 days. MPV: No results found for requested labs within last 30 days. Platelets: No results found for requested labs within last 30 days. RDW CV: No results found for requested labs within last 30 days. RDW Sd: No results found for requested labs within last 30 days. BMP Glucose: No results found for requested labs within last 30 days. Calcium: No results found for requested labs within last 30 days. Sodium: No results found for requested labs within last 30 days. Potassium: No results found for requested labs within last 30 days. CO2: No results found for requested labs within last 30 days. Chloride: No results found for requested labs within last 30 days. BUN: No results found for requested labs within last 30 days. Creatinine: No results found for requested labs within last 30 days. STOP-Bang Total Score: 7 DOS Physical Exam Medical history, medications, and allergies reviewed. Attestation: I endorse the findings of the anesthesia pre-evaluation assessment dated: 12/02/2024. Airway Exam: Mallampati: III Cervical ROM: FROM TM distance: decreased Cardiovascular Exam: Rate: regular Pulmonary Exam: LCTA Dental Exam: Missing Current state: Patient's current state is cooperative and interactive. Anesthesia Plan ASA 4 My patient is approved for the Anesthesia Controlled Medication protocol when under care of a CASE MANAGER SPECIALIST Planned anesthesia: General Team communication plan: LMA and oral ET tube Induction: Induction: intravenous. Postoperative Plan: Patient's planned disposition post procedure is Outpatient. Informed Consent: Discussed plan with CASE MANAGER SPECIALIST and attending. Anesthesia plan and risks discussed with patient and spouse. Consent and Attending signature: I and/or my designee have discussed the anesthesia plan, benefits, possible alternatives, parental presence at time of induction (if indicated), and clinically relevant risks that may include dental injury, unintentional awareness, and/or other complications. The patient and/or parent/legal guardian understand, and agree to proceed. All questions answered. documented in this encounter Plan of Treatment Not on file documented as of this encounter Procedures Procedure Name Priority Date/Time Associated Diagnosis Comments KY AN ELECTIVE ENDOTRACHEAL AIRWAY Routine 12/02/2024 11:31 AM CDT documented in this encounter Results * KY AN ELECTIVE ENDOTRACHEAL AIRWAY (12/02/2024 11:31 AM CDT) Narrative Toby Juarez CRNA - 12/02/2024 11:31 AM CDT Toby Juarez CRNA 12/02/2024 11:31 AM Airway Patient location: OR Urgency: elective Date/time: 12/02/2024 11:26 AM Indications for airway management: anesthesia and airway protection Difficult airway: no Staff: Placed by: CASE MANAGER SPECIALIST: Toby Juarez CRNA Emergent airway documentation: Risks [...] sx today. Dentition/lips/oral cavity same as preop Rick Platt MD ANESTHESIA ORDERABLES Final Result documented in this encounter Visit Diagnoses Not on filedocumented in this encounter Administered Medications Inactive Administered Medications - up to 3 most recent administrations Medication Order MAR Action Action Date Dose Rate Site ceFAZolin (ANCEF) 1 gram/10 mL in sterile water (premix) 3,000 mg 3,000 mg, intravenous, at 600 mL/hr, Administer over 3 Minutes, Once, On Sun12/02/24 at 1000, For 1 dose, Pre-Op, Administer within 60 minutes of incision., Indications: Prophylaxis, SurgicalIndications:Prophylaxis , Surgical Given 12/02/2024 11:28 AM CDT 3,000 mg fentaNYL (SUBLIMAZE) preservative free injection intravenous, As needed, Starting on Sun12/02/24 at 1125, Anesthesia Intra-op Given 12/02/2024 11:25 AM CDT 50 mcg hydrALAZINE (APRESOLINE) injection intravenous, Administer over 2 Minutes, As needed, Starting on Sun12/02/24 at 1029, Anesthesia Intra-op, Indications: hypertensionIndications:hyperte nsion Given 12/02/2024 10:29 AM CDT 15 mg Lactated Ringer's (LR) infusion 30 mL/hr, intravenous, Continuous, Starting on Sun12/02/24 at 1000, Pre-Op Restarted 12/02/2024 12:04 PM CDT Rate/Dose Verify 12/02/2024 11:18 AM CDT 30 mL/ hr New Bag 12/02/2024 9:50 AM CDT 30 mL/hr 30 mL/hr lidocaine (PF) (XYLOCAINE) 20 mg/mL (2 %) preservative free injection intravenous, As needed, Starting on Sun12/02/24 at 1125, Anesthesia Intra-op Given 12/02/2024 11:25 AM CDT 100 mg ondansetron (ZOFRAN) injection intravenous, Administer over 2 Minutes, As needed, Starting on Sun12/02/24 at 1128, Anesthesia Intra-op Given 12/02/2024 11:28 AM CDT 4 mg phenylephrine (BIORPHEN) 0.5 mg/5 mL (100 mcg/mL) injection intravenous, As needed, Starting on Sun12/02/24 at 1154, Anesthesia Intra-op Given 12/02/2024 11:54 AM CDT 100 mcg propofoL (DIPRIVAN) 10 mg/mL IV intravenous, As needed, Starting on Sun12/02/24 at 1125, Anesthesia Intra-op Given 12/02/2024 12:00 PM CDT 50 mg Given 12/02/2024 11:42 AM CDT 50 mg Given 12/02/2024 11:25 AM CDT 200 mg succinylcholine syringe intravenous, As needed, Starting on Sun12/02/24 at 1125, Anesthesia Intra-op Given 12/02/2024 11:25 AM CDT 160 mg documented in this encounter Care Teams Waiter/Waitress Captain Relationship Specialty Start Date End Date Lucio Oliveira MD PCP - General 07/02/19 Lucio Oliveira MD Family Medicine 07/02/19 documented as of this encounter
--- OUTSIDE RECORDS SUMMARY | 2024-12-03 15:37 | XMS_ITS ---
Author Organization [facility] Address [address] [place] [address] Care Team Providers Care Surveyor Hydrographic Name Role Phone TAMMIE JOSEPH MD Primary Care Provider Unavail able Nancy Paige Unavailable [phone] GOKUL CARNEY Unavailable Unavailable Allergies Allergen (clinical drug ingredient) Drug/Non Drug Allergy documented on EMR Reaction Allergy Type Onset Date Status codeine Codeine Unknown Drug Allergy Active methylprednisolone Methylprednisolone Unknown Drug Allergy Active prednisone Prednisone Unknown Drug Allergy Activ e REASON FOR VISIT Confirmed Medications Medication SIG (Take, Route, Frequency, Duration) Notes Start Date End Date Status Sotalol HCl 80 MG TAKE 1 TABLET BY MOUTH EVERY 12 HOURS Oral for 30 Days Not-Taking Ketorolac Tromethamine 10 MG Oral for 5 Days Not-Taking predniSONE 10 MG TAKE 4 TABLETS DAILY FOR 3 DAYS IN THE MORNING WITH FOOD, DECREASED BY 1 TAB EVERY 3 DAYS UNTIL COMPLETED Oral for 12 Days Not-Taking predniSONE 10 MG Oral for 12 Days Not-Taking methylPREDNISolone 4 MG Oral for 6 Days Not-Taking Eszopiclone 1 MG TAKE 1 TABLET BY MOUTH AT BEDTIME AT SLEEP LAB IF NEEDED AT THE START OF THE TEST DO NOT TAKE AT HOME Oral for 1 Days Not-Taking Eszopiclone 1 MG Oral for 1 Days Not-Taking Sertraline HCl 25 MG 1 tablet Oral Once a day for 30 days Active methylPREDNISolone 4 MG Oral for 6 Days Not-Taking Sertraline HCl 25 MG 1 tablet Orally Onc e a day for 30 days 07/31/2024 Active Spironolactone 25 MG Oral for 90 Days Active Docusate Sodium 100 MG TAKE 1 CAPSULE BY MOUTH ONCE DAILY NEEDED FOR CONSTIPATION Oral for 30 Days Active Furosemide 40 MG Oral for 90 Days Active Albuterol Sulfate (2.5 MG/3ML) 0.083% Inhalation for 5 Days Acti ve Rosuvastatin Calcium 20 MG Oral for 90 Days Active Pramipexole Dihydrochloride 1 MG Oral for 90 Days Active Sotalol HCl 80 MG Oral for 90 Days Active traMADol HCl 50 MG TAKE 1 TABLET BY MOUTH TWICE DAILY FOR PAIN Oral for 15 Days Active Roflumilast 500 MCG Oral for 90 Days Active Tamsulosin HCl 0.4 MG TAKE 1 CAPSULE BY MOUTH AT BEDTIME Oral for 90 Days Active Omeprazole 20 MG Oral for 90 Days Active Albuterol Sulfate HFA 108 (90 Base) MCG/ACT INHALE 2 PUFFS BY MOUTH EVERY 4 HOURS NEEDED FOR SHORTNESS OF BREATH OR WHEEZING Inhalation for 17 Days Active Jardiance 10 MG Oral for 90 Days Active Klor-Con M20 20 MEQ Oral for 90 Days Active Entresto 49-51 MG Oral for 90 Days Active Ferrous Sulfate 325 (65 Fe) MG 1 tablet Orally Three times a Week Active Multivitamin - 1 tablet Orally Once a day Active Vitamin D 50 MCG (2000 UT) 1 tablet Oral ly Once a day Active traZODone HCl 100 MG Oral for 30 Days Active Eliquis 5 MG Oral for 90 Days Active Lysine 1000 MG as directed Orally Active Cholecalciferol 100 MCG (4000 UT) 1 tablet Orally Once a day Active Pregabalin 75 MG 1 capsule in the evening 1 to 3 hours before bedtime Orally Once a day Active Empagliflozin 10 MG 1 tablet Orally Once a day Active Trelegy Ellipta 100-62.5-25 MCG/ACT 1 puff Inhalation Once a day Active Balsalazide Disodium 750 MG 2 capsules O rally Twice a day Active Amoxicillin 875 MG TAKE 1 TABLET BY MOUTH EVERY 12 HOURS FOR 5 DAYS Oral for 5 Days Not-Taking Lidocaine 5 % 1 patch remove after 12 hours Externally Once a day Active Potassium Chloride 20 MEQ 1 packet with food Orally Once a day Active Aspirin 81 81 MG 1 tablet Orally Once a day Active Metoprolol Tartrate 25 MG TAKE 1 TABLET BY MOUTH TWICE DAILY Oral for 90 Days Not-Taking clonazePAM 0.5 MG TAKE ONE-HALF TABLET BY MOUTH EVERY DAY AT BEDTIME ADMINISTER 30 MINUTES BEFORE BEDTIME Oral for 30 Days Not-Taking Roflumilast 250 MCG Oral for 28 Days Not-Taking Ipratropium [place] 0.02 % INHALE 1 VIAL IN NEBULIZER THREE TIMES DAILY NEEDED FOR SHORTNESS OF BREATH FOR WHEEZING FOR 1 MONTH (USE IN THE NEBULIZER WITH ALBUTEROL) Inhalation for 24 Days Not-Taking Roflumilast 250 MCG TAKE 1 TABLET BY MOUTH ONCE DAILY FOR 4 WEEKS Oral for 28 Days Not-Taking Albuterol Sulfate (2.5 MG/3ML) 0.083% Inhalation for 30 Days Not-Taking HYDROcodone-Acetaminophen 5-325 MG Oral for 3 Days Not-Taking HYDROcodone-Acetaminophen 5-325 MG TAKE 1 TO 2 TABLETS BY MOUTH EVERY 6 HOURS NEEDED Oral for 3 Days Not-Taking Balsalazide Disodium 750 MG Oral for 90 Days Not-Taking Roflumilast 500 MCG TAKE 1 TABLET BY MOUTH ONCE DAILY Oral for 30 Days Not-Taking Ketorolac Tromethamine 10 MG TAKE 1 TABLET BY MOUTH EVERY 6 HOURS NEEDED Oral for 5 Days Not-Taking Social History Sex Assigned At : Social History Observation Description Sex Assigned At Male Vital Signs Blood pressure systolic 190 mm Hg 11/15/19 25 Blood pressure diastolic 96 mm Hg 025 Heart Rate 63 /min 11/14/2024 Weight 282 lbs 11/14/2024 Weight-kg 127.91 kg 11/14/2024 Height 68 in 11/14/2024 Height-cm 172.72 cm 11/14/2024 BMI 42.87 kg/m2 11/14/2024 Encounters Encounter Location Date Provider Diagnosis [facility] [address] [place] [address] 11/14/2024 Nancy Paige Benign essential HTN I10 ; Encounter for screening for cardiovascular disorders Z13.6 and Dietary counseling and surveillance Z71.3 Assessments Encounter Date Diagnosis (ICD Code) Assessment Notes Treatment Notes Treatment Clinical Notes Section Notes 11/14/2024 Benign essential HTN (ICD-10 - I10) 11/14/2024 Encounter for screening for cardiovascular disorders (ICD-10 - Z13.6) 11/14/2024 Dietary counseling and surveillance (ICD-10 - Z71.3) Plan Of Treatment Next Appt Details Provider Name:Nancy almeida, 02/13/2025 01:00:00 PM, [address], [address], [place], [address], Progress Notes * Danial BOWEN ADOB:1945 (78 yo M)Acc No.[id number]:11/14/2024 Patient: Danial GOLDMAN Provider: Martin ced Paige :1945 A ge:78 Y S ex:Male Date:11/14/2024 Address:[address] [place] [address] Pcp:TAMMIE JOSEPH MD Subjective: * Chief Complaints: * 1 . Confirmed. * HPI: H istory of Presenting Problem: MIPS diagnosis of HTN MIPS diagnosis of HTN Elevated or Hypertensive blood pressure reading. * ROS: P atient not eligible due to active diagnosis of hypertension: G 9744 Patient not eligible due to active diagnosis of hypertension: Lionel 9744. * Medical History: O SA treated with BiPAP, Chronic insomnia, Adjustment disorder with other symptom, Benign hypertension, Mixed hyperlipidemia, Restless legs, Chronic obstructive pulmonary disease, Osteoarthritis, Stenosis of right carotid artery, Gastroesophageal reflux disease, Gout, Hypogonadism, Chronic heart failure co-occurrent with normal ejection fraction, Chronic kidney disease stage 2, Persistent atrial fibrillation, Osteoarthritis, Stenosis of right carotid artery, Gout, Gastroesophageal reflux disease, Hypogonadism, Chronic heart failure co-occurrent with normal ejection fraction, Chronic kidney disease stage 2. * Medications: T aking Balsalazide Disodium 750 [...] tablet Orally Once a day , Taking Pregabalin 75 [...] Taking Spironolactone 25 MG Tablet Oral , Taking Sertraline HCl 25 MG Tablet 1 tablet Orally Once a day , Taking Sertraline HCl 25 MG Tablet 1 tablet Oral Once a day , Not-Taking methylPREDNISolone 4 MG Tablet Therapy Pack Oral , Not- Taking Eszopiclone 1 MG Tablet TAKE 1 TABLET [...] 250 MCG Tablet Oral , Not-Taking Ipratropium [place] 0.02 % Solution INHALE 1 VIAL IN [...] 12 HOURS FOR 5 DAYS Oral , Medication List reviewed and reconciled with the patient * Allergies: C odeine, Methylprednisolone, Prednisone. Objective: * Vitals: B P: 196/98 mm Hg,190/96mm Hg, HR: 72 /min,63/min, Wt:282lbs, Wt-k.91 kg, Ht: 68 in, Ht-cm: 172.72 cm, BMI:42.87Index, Body Surface Area: 2.47. Assessment: * Assessment: 1. B enign essential HTN - I10 2 . E ncounter for screening for cardiovascular disorders - Z13.6 3 . D ietary counseling and surveillance - Z71.3 ? Plan: * Treatment: * Procedure Codes: G 8950 PREHTN/HTN BP DOC INDCD F/U DOC, G9744 Pt not alexia d/t act dig htn, G9744 Pt not alexia d/t act dig htn, G8753 MOST RECENT SYSTOLIC BP >= 140MM HG * Preventive Medicine: Counseling: B P Management: FIRST HYPERTENSIVE BP READING FOLLOW-UP PLAN: F ollow-up 1 month Follow up with your PCP LIFESTYLE RECOMMENDATION: L ifestyle education REFERRAL TO ALTERNATIVE / PRIMARY CARE PROVIDER: R eferral to general medical service WEIGHT REDUCTION RECOMMENDATION: W eight-reducing diet education DIETARY RECOMMENDATIONS: D iet education Dietary Healthy-Heart Diet * [place] Information: * Visit Code: * Procedure Codes: G8950 PREHTN/HTN BP DOC INDCD F/U DOC. G9744 Pt not alexia d/t act dig htn. G9744 Pt not alexia d/t act dig htn. G8753 MOST RECENT SYSTOLIC BP >= 140MM HG. * Electronic signature of Sergio Paige on 12/03/2024 at 03:37 PM CDT Sign off status: Pending * Provider: Martin Paige Date: 0 11/14/2024 Generated for Miguelangel Townsend on: 0 12/03/2024 03:37 PM CDT
--- OUTSIDE RECORDS SUMMARY | 2024-12-03 15:37 | XMS_ITS | Clinical Summary ---
Author Organization [facility] Address [address] [place] [address] Phone Care Team Providers Care Rn Cardiac Name Role Phone Lucio Oliveira MD Primary Care Provider [phone] Allergies Active Allergy Reactions Criticality Noted Date [...] on file Legal Sex Male 5:39 AM [employer] Gender Identity Not on file Sexual Orientation [...] Completed 08/07/2017 , 07/07/2016 Insurance [employer] PPO [facility] Care Teams Rn Cardiac Relationship Specialty Start Date End Date Lucio Oliveira MD [address] [place] [address] PCP - General Family Practice 10/21/18
--- OUTSIDE RECORDS SUMMARY | 2024-12-03 15:37 | XMS_ITS | Encounter Summary ---
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 of other lower urinary tract location [N21.8] Overactive bladder [N32.81] Procedures NC CYSTO/URETERO W/LITHOTRIPSY &INDWELL STENT INSRT NC BIOPSY URETHRA NC CYSTO W/URETEROSCOPY W/RMVL/MANJ STONES CYSTOSCOPY, RIGHT URETEROSCOPIC STONE EXTRACTION, LITHOTRIPSY, RIGHT STENT PLACEMENT, BIOPSY OF URETHRAL LESION WITH AWAD CATHETER PLACEMENT Referral ID Status Reason Start Date Expiration Date Visits Re quested Visits Authorized [id number] 1 1 Encounter Details Date Type Department Care Team (Latest Contact Info) Description 12/02/2024 9:10 AM CDT - 12/02/2024 1:57 PM CDT Hospital Encounter [facility] Operating Room [address] [place] [address] [place] [id number] [place] [address] Urethral tumor; Calculus of other lower urinary tract location; Overactive bladder Discharge Disposition: Discharge to home or self care Social History Tobacco Use Types Packs/Day Years [...] on file Legal Sex Male 2:18 AM 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 Never 12/02/2024 9:15 AM CDT Willard May RN Q2: How many drinks containing alcohol do you have on a typical day when you are drinking? Patient does not drink 12/02/2024 9:15 AM Willard Ott RN Q3: How often do you have six or more drinks on one occasion? Never 12/02/2024 9:15 AM Willard Ott RN documented as of this encounter Discharge Instructions * Attachments The following attachments cannot be sent through Care Everywhere. * General Anesthesia (Discharge Care) (Chinese) * Cystoscopy (Discharge Care) (Chinese) * Lithotripsy (Discharge Care) (Chinese) * Ciprofloxacin (By mouth) (Chinese) * Tramadol (By mouth) (Chinese) documented in this encounter Medications at Time of Discharge albuterol 2.5 mg /3 mL (0.083 %) nebulizer solution Take 3 mL (2.5 mg total) by nebulization 4 (four) times a day 06/19/2019 albuterol HFA (PROVENTIL HFA,VENTOLIN HFA,PROAIR HFA) 90 mcg/actuation inhaler 06/27/2021 apixaban (ELIQUIS) 5 mg tablet Take 1 tablet (5 mg total) by mouth 2 (two) times a day 180 tablet 3 11/27/2023 aspirin 81 mg enteric coated tablet Take 1 tablet (81 mg total) by mouth daily balsalazide (COLAZAL) 750 mg capsule TAKE 3 CAPSULES TWICE A DAY 4 02/14/2019 cholecalciferol (VITAMIN D-3) 1,000 unit capsule Take 1 capsule (1,000 Units total) by mouth 4 (four) times a day docusate sodium (COLACE) 100 mg capsuleIndication s:constipation Take 1 capsule (100 mg total) by mouth 2 (two) times a day as needed for constipation empagliflozin (JARDIANCE) 10 mg tablet Take 1 tablet (10 mg total) by mouth daily 90 tablet 3 10/24/2023 ferrous sulfate 325 mg (65 mg of elemental iron) tabletIndications :Iron Deficiency Anemia Take 1 tablet (325 mg total) by mouth daily with breakfast fluticasone-umecl idin-vilanter (Trelegy Ellipta) 100-62.5-25 mcg inhaler Inhale 1 puff daily furosemide (LASIX) 40 mg tablet Take 1 tablet (40 mg total) by mouth daily 03/08/2017 lysine 1,000 mg tablet Take by mouth 07/30/1969 multivitamin capsule daily omeprazole (PriLOSEC) 20 mg capsule 20 mg. 0 0 12/11/2014 potassium chloride ER (KLOR-CON) 20 mEq CR tablet Take 1 tablet (20 mEq total) by mouth as needed 12/16/2018 pramipexole (MIRAPEX) 1 mg tabletIndications :Periodic limb movement disorder,Persiste nt disorder of initiating or maintaining sleep TAKE 1 TO 2 TABS 2-3 HOURS PRIOR TO BEDTIME 180 tablet 3 05/30/2021 pregabalin (LYRICA) 25 mg capsule Take 1 capsule (25 mg total) by mouth 2 (two) times a day roflumilast (DALIRESP) 500 mcg tablet 1 tablet (500 mcg total) daily 11/07/2023 rosuvastatin (CRESTOR) 20 mg tablet Take 1 tablet (20 mg total) by mouth daily 10/01/2018 sacubitriL-valsar busch (ENTRESTO) 49-51 mg tabletIndications :chronic heart failure Take 1 tablet by mouth 2 (two) times a day 180 tablet 10/08/2024 sertraline (ZOLOFT) 25 mg tablet Take 1 tablet (25 mg total) by mouth daily sotaloL (BETAPACE) 80 mg tabletIndications :Atrial flutter, unspecified type (HCC) Take 1 tablet (80 mg total) by mouth every 12 (twelve) hours 180 tablet 3 01/15/2024 spironolactone (ALDACTONE) 25 mg tablet Take 1 tablet (25 mg total) by mouth every morning 90 tablet 3 05/09/2023 tamsulosin (FLOMAX) 0.4 mg extended release capsule Take 1 capsule (0.4 mg total) by mouth nightly 06/06/2023 traMADoL (ULTRAM) 50 mg tablet Take 1 tablet (50 mg total) by mouth every 6 (six) hours as needed for pain 09/11/2022 traZODone (DESYREL) 100 mg tabletIndications :Periodic limb movement disorder,Persiste nt disorder of initiating or maintaining sleep Take 1-2 tablets every night at bedtime. 180 tablet 3 10/13/2021 ciprofloxacin (CIPRO) 500 mg tablet Take 1 tablet (500 mg total) by mouth 2 (two) times a day 6 tablet 12/02/2024 traMADoL (ULTRAM) 50 mg tablet Take 1 tablet (50 mg total) by mouth every 6 (six) hours as needed for pain 10 tablet 12/02/2024 documented as of this encounter Ordered Prescriptions Prescription Sig Dispense Quantity Refills Last Filled Start Date End Date traMADoL (ULTRAM) 50 mg tablet Take 1 tablet (50 mg total) by mouth every 6 (six) hours as needed for pain 10 tablet 12/02/2024 ciprofloxacin (CIPRO) 500 mg tablet Take 1 tablet (500 mg total) by mouth 2 (two) times a day 6 tablet 12/02/2024 documented in this encounter Discharge Disposition Disposition Code Departure Means Destination Comment s Discharge to home or self care documented in this encounter H&P Notes * Sherice Santos MD - 12/02/2024 10:54 AM CDT Images from the original note were not included. Urology Surgery PreOp Note Chief Complaint: Right renal calc, urethral lesions __ ASSESSMENT AND PLAN: This is a 78 y.o. male with right renal calcification, urethral lesions. Had an extensive discussion with the patient about the risks, benefits, alternatives to surgery. This includes: Observation versus surgical stone extraction and biopsy of urethral lesion. We discussed riskof language includes that the patient would need a stent for approximately 2 - 3 weeks following this. With regards ureteroscopy I discussed the risk of ureteral stricture, bladder injury, sepsis/, recurrence of stone, need for more than 1 procedure particularly if we cannot obtain adequate access or there is residual stone fragments left. We discussed the risk of nerve injury and positioning injuries. We discussed and discomfort and pain afterwards. Also, with each stone approach I stressed the risk of developing a ureteral stricture post operatively, risk of sepsis that could lead to or prolonged hospitalization (even in the setting of a negative urine culture), nerve injuries from positioning. I also stressed there is a risk of needing more than one procedure particularly ifthe stone is large or we cannot gain safe access to the stone due to ureteral narrowing or anatomicvariations. The patient expressed understanding. Patient consents to surgery. History of Present Illness: Danial Wilson is a 78 y.o. male with a 6 mm right renal calcification. Hedoes have urethral tissues as well. We discussed multiple options. At this point, we will plan for ureteroscopic evaluation. I did discuss there is a high-risk and may not be able to access the kidney stone and he will still have ongoing pain inspite of stone removal. Past Medical History: Diagnosis Date Adiposity Obesity [...] hemorroidectomy LITHOTRIPSY TRANSURETHRAL RESECTION OF PROSTATE TURP Current Facility-Administered Medications Medication Dose Route Frequency Provider Last Rate Last Admin Carrier Fluids for Secondary Infusion - 0.9% Sodium Chloride 30 mL intravenous PRN Rinku Coates MD ceFAZolin (ANCEF) 1 gram/10 mL in sterile water (premix) 3,000 mg 3,000 mg intravenous Once Sherice Santos MD Lactated Ringer's (LR) infusion 30 mL/hr intravenous Continuous Rinku Coates MD 30 mL/hr at 12/02/24 1043 Rate Verify at 12/02/24 1043 sodium chloride 0.9% flush 0.5-20 mL 0.5-20 mL intra-catheter PRN Rinku Coates MD Facility-Administered Medications Ordered in Other Encounters Medication Dose Route Frequency Provider Last Rate Last Admin hydrALAZINE (APRESOLINE) injection intravenous PRN Rick Platt MD 15 mg at 12/02/24 1029 Allergies Allergen Reactions Codeine Nausea & Vomiting Methylprednisolone Nausea & Vomiting and Nausea And Vomiting Influen Tr-Split 2004 Vac (Pf) Rash Other Unknown Prednisone Nausea And Vomiting @SOCHX@ Family History Problem Relation Age of Onset Prostate cancer Father Cancer, prostate; Hypertension Father Hypertension; Rheumatic fever Mother Rheumatic fever; Lung cancer Sister COPD Brother Prostate cancer Brother Diabetes Sister Heart disease Sister Heart disease Brother REVIEW OF SYSTEMS: As per the HPI. All other systems were reviewed and issues relevant to chief complaint are negative. The complete REVIEW OF SYSTEMS, MEDICATION LIST and DRUG ALLERGIES, PAST MEDICAL HISTORY, FAMILY MEDICAL HISTORY and SOCIAL HISTORY are documented in detail and were reviewed with the patient. The patient was asked to review all abnormal responses not pertinent to today's visit with their primary care physician. PHYSICAL EXAMINATION: Constitutional: General appearance: Well nourished, well developed male in no acute distress. Appears stated age Eyes: EOMI, no scleral icterus Neurologic: Normal mood and affect. Respiratory: Normal respiratory effort. No use of accessory muscles Cardiovascular: No lower extremity edema. Extremities well perfused. Ears, Nose, Throat, Mouth: midline trachea, no thryomegaly. Soft, supple appearing. Skin: Warm and dry. Gastrointestinal: No masses. No abdominal tenderness. No hepatosplenomegaly. Psychiatry: Normal mood, alert and oriented documented in this encounter Nursing Notes * Anu Mason, RN - 11/26/2024 9:45 AM CDT 11/26/24 0916 Sleep Apnea Questions Have you ever had a sleep study? Yes Have you ever been diagnosed with sleep apnea? Yes Do you use a machine to help you breathe at night? Yes (patient uses Bi-Pap with a 4L O2 bleed in) STOP-Bang Questionnaire Do you snore loudly? 1 Do you often feel tired or fatigued after you sleep? 0 Has anyone ever observed you stop breathing in your sleep? 1 Do you have or are you being treated for high blood pressure? 1 Recent BMI (Calculated) 40.9 Is BMI greater than 35 kg/m2? 1=Yes Age older than 50 years old? 1=Yes Neck Circumference Greater Than (17 inches Male) or (16 inches Female) 1 Gender - Male 1=Yes STOP-Bang Total Score 7 Discharge instructions for sleep apnea will be placed in patients chart. documented in this encounter Miscellaneous Notes * Op Note - Sherice Santos MD - 12/02/2024 11:05 AM CDT Images from the original note were not included. PHYSICIAN'S OPERATIVE NOTE Pre-Op Diagnosis: 1. Right nephrolithiasis 2. Prostatic urethral lesion Post-Op Diagnosis: 1. Right renal nephrolithiasis 2. Prostate urethral lesions Procedure: 1. Cystourethroscopy 2. Biopsy and fulguration of prostatic urethral lesions 3. Right retrograde pyelogram with intraoperative fluoroscopic interpretation 4. Right flexible ureteroscopy with laser lithotripsy and basket stone extraction 4. Placement of 6x28 JJ stent on right side Surgeon: Sherice Landa MD Reaming Machine Tender: None Anesthesia: General Indications: This is a 78 y.o. male with prostatic urethral lesions, and a 6 mm nonobstructing right renal stone. We plan for cystourethroscopy, retrograde pyelogram, ureteroscopy with laser lithotripsy and basket stone extraction with placement of JJ stent. Risks discussed including infection and sepsis, pain, bleeding, ureteral/urethral stricture development, ureteral injury/perforation, bladder injury, inability to complete the procedure, need for additional surgeries, DVT/PE, nerve/positioning injuries, and pain/discomfort from stent placement were discussed. We discussed risks of urinaryretention and ongoing symptoms. We also discussed the risk of needing additional surgery should there be residual stone fragments left behind. We focused on the risk of incomplete stone removal, needfor additional stone surgeries, inability to complete the procedure at hand requiring placement of stent versus nephrostomy tube in particular. Lastly, we highlighted the importance of having the stent removed in a timely fashion to avoid incrustation. Patient consents and agrees to procedure. Findings 1. Cystoscopy shows evidence of TURP defect, there were several papillary lesions at the prostatic urethra at the level of the verumontanum. These were biopsied. Fulguration was performed, no evidence of urethral perforation or injury. Excellent hemostasis. Retrograde pyelogram with right ureter with no tortuosity. There is no hydronephrosis. There is no filling defect visualized. The stone was not visualized on plain film. The calyces appear normal. 2. Flex ureteroscopy was performed which showed 6 mm right renal stone. After stone was visualized,laser litho was performed with complete removal of stone 3. Placement of 6x28 JJ stent (right). Position confirmed fluoroscopically and under direct vision. 4. exam with no inguinal adenopathy, rectal exam with no masses Description of Procedure: After the patient was correctly identified and appropriately consented, the patient was taken to the operative suite and placed on the table in the supine position. Bilateral lower extremity SCD's were applied and functioning. General anesthesia was administered by the anesthesia team and IV antibiotics with cefazolin were administered. The patient was then repositioned to the dorsal lithotomy position with all pressure points were well padded and no compression of nerves was noted. The team agreed to the safety of positioning. The patient's lower abdomen, genitals, and perineum were prepped in the usual sterile fashion. The operative team paused for a preoperative time-out. The prep was all owed to dry to completion before starting the case. Sterile drapes were applied after prep had appropriately dried. A well lubricrated 22F rigid cystoscope was introduced transurethrally. The urethra appeared normalwith no strictures or lesions. The prostate was with with TUR defect. There was some papillary lesions at the verumontanum. Cold cup forceps were used and these were biopsied. Bugbee cautery was utilized. Hemostasis excellent.. Cramer cystoscopy was performed which showed no bladder tumors or stones. Bilateral ureteral orifices were in their orthotopic position. The right ureteral orifice was identified. It was intubated with a 5F exchange catheter over a Sensor wire. Dilute 1:1 conray was gently injected for a retrograde pyelogram. This showed the above findings. The Sensor wire was then guided to the upper pole and confirmed to be in the correct position fluoroscopically. We then advanced a ureteral access sheathe under fluoroscopic guidance to the level of the mid ureter. This went up without resistance. The wire was left in place as a safety wire. We then utilized the flexible ureteroscope. The stone was visualized. A 242nm laser fiber was used on the following settings: 10hz and 1J. The stone was dusted and fragmented to completion. A nitinolbasket was then utlized and stone fragments were removed and sent for analysis. Then, using a flexible ureteroscope, we performed thorough nephroscopy after injecting additional contrast to provide us with a road map. No extravasation was seen. Each calyx was carefully examined and noted to be free of stone. The ureteroscope was then withdrawn and the ureter was carefully examined with no stone fragments noted. We then backloaded the wire on to the 22F rigid cystoscope. A 6x28 JJ stent was then back loaded onto the scope and advanced under fluoroscopy and direct visualization. The proximal curl was visualized in the upper pole with fluoroscopy. The distal curl was seen in the bladder. The bladder was deco mpressed and the scope was removed atraumatically. The patient was then returned to the supine position and awoken. All lines and tubes were functioning appropriately and was transferred to PACU in stable condition. Complications: none immediately apparent EBL: Minimal (<50 mls) Fluids: Per anesthesia records Drains/Tubes: 1. 6x28 stent Grafts/Implants: 1. None Condition: excellent Specimen: Right renal stone Prostatic urethral lesions Disposition: 1. To PACU 2. Stent for 2 weeks * Perioperative Nursing Note - Anu Mason RN - 11/26/2024 9:44 AM CDT Images from the original note were not included. Pre Anesthesia Testing Perioperative Nursing Note Telephone Preoperative Evaluation - TELEPHONE ONLY, NO PHYSICAL EXAM - [facility] PAT Date: 11/26/24 PAT RN completed assessment with the patient. Danial Wilson is a 78 y.o. 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 Social History Tobacco Use Smoking Status Never Smokeless Tobacco Never Substance and Sexual Activity Drug Use Never Alcohol Use Q2: How many drinks containing alcohol do you have on a typical day when you are drinking?: Patientdoes not drink Past Medical History: Diagnosis Date Adiposity Obesity Atrial fibrillation and flutter (HCC) Cataracts, bilateral Chronic bronchitis (HCC) Chronic kidney disease 3 COPD (chronic obstructive pulmonary disease) (HCC) Depression Depression Enlarged prostate Gastroesophageal reflux disease GERD - Gastro-esophageal reflux disease; Comments: AKV 12/08/2014 - Gout Hyperlipidemia Hypertension Hypertension Pulmonary embolus (HCC) Sleep apnea Past Surgical History: Procedure Laterality Date APPENDECTOMY 2019 CARDIAC CATHETERIZATION Cardiac cath CARPAL TUNNEL RELEASE carpal tunnel surgery COLON BIOPSY COLON SURGERY HEMORRHOID SURGERY hemorroidectomy TRANSURETHRAL RESECTION OF PROSTATE TURP Allergies Allergen Reactions Codeine Nausea & Vomiting Methylprednisolone Nausea & Vomiting and Nausea And Vomiting Influen Tr-Split 2004 Vac (Pf) Rash Other Unknown Prednisone Nausea And Vomiting CURRENT MEDICATIONS Med List Status: Nurse Complete Set By: Anu Mason RN at 11/26/2024 9:30 AM Taking? Last Dose Start Date End Date Provider albuterol 2.5 mg /3 mL (0.083 %) nebulizer solution -- 06/19/19 -- Jean Claude Ross MD albuterol HFA (PROVENTIL HFA,VENTOLIN HFA,PROAIR HFA) 90 mcg/actuation inhaler -- 06/27/21 -- Jean Claude Ross MD apixaban (ELIQUIS) 5 mg tablet -- 11/27/23 -- Rey Pal MD Take 1 tablet (5 mg total) by mouth 2 (two) times a day aspirin 81 mg enteric coated tablet -- -- -- Jean Claude Ross MD balsalazide (COLAZAL) 750 mg capsule -- 02/14/19 -- Jean Claude Ross MD cholecalciferol (VITAMIN D-3) 1,000 unit capsule -- -- -- Jean Claude Ross MD docusate sodium (COLACE) 100 mg capsule -- -- -- Jean Claude Ross MD empagliflozin (JARDIANCE) 10 mg tablet -- 10/24/23 -- Rey Pal MD Take 1 tablet (10 mg total) by mouth daily ferrous sulfate 325 mg (65 mg of elemental iron) tablet -- -- -- Jean Claude Ross MD vurlsunoeuf-dhohrjvvn-yhfxcqog (Trelegy Ellipta) 100-62.5-25 mcg inhaler -- -- -- Jean Claude Ross MD furosemide (LASIX) 40 mg tablet -- 03/08/17 -- Jean Claude Ross MD lysine 1,000 mg tablet -- 07/30/69 -- Jean Claude Ross MD multivitamin capsule -- -- -- Jean Claude Ross MD omeprazole (PriLOSEC) 20 mg capsule -- 12/11/14 -- Slick Adams MD 20 mg. potassium chloride ER (KLOR-CON) 20 mEq CR tablet -- 12/16/18 -- Jean Claude Ross MD pramipexole (MIRAPEX) 1 mg tablet -- 05/30/21 -- Cynthia Guo NP TAKE 1 TO 2 TABS 2-3 HOURS PRIOR TO BEDTIME pregabalin (LYRICA) 25 mg capsule -- -- -- Jean Claude Ross MD roflumilast (DALIRESP) 500 mcg tablet -- 11/07/23 -- Jean Claude Ross MD rosuvastatin (CRESTOR) 20 mg tablet -- 10/01/18 -- Jean Claude Ross MD sacubitriL-valsartan (ENTRESTO) 49-51 mg tablet -- 10/08/24 -- Heber Alvarado MD Take 1 tablet by mouth 2 (two) times a day sertraline (ZOLOFT) 25 mg tablet -- -- -- Jean Claude Ross MD sotaloL (BETAPACE) 80 mg tablet -- 01/15/24 -- Xiomara Fisher NP Take 1 tablet (80 mg total) by mouth every 12 (twelve) hours Notes: Discontinue metoprolol spironolactone (ALDACTONE) 25 mg tablet -- 05/09/23 -- Rey Pal MD Take 1 tablet (25 mg total) by mouth every morning tamsulosin (FLOMAX) 0.4 mg extended release capsule -- 06/06/23 -- ProviderJean Claude MD traMADoL (ULTRAM) 50 mg tablet -- 09/11/22 -- Jean Claude Ross MD traZODone (DESYREL) 100 mg tablet -- 10/13/21 -- Cynthia Guo NP Take 1-2 tablets every night at bedtime. -- -- Patient not taking: Implants No active implants to display in this view. TRAVEL/EXPOSURE Travel Screening Have you traveled outside the [place] in the last 6 months?: No SCREENINGS STOP-Bang Total Score: 7 NUTRITION PATIENT CARE PLANNING ADDITIONAL COMMENTS/ FOLLOW UP * Pre-Procedure Instructions - Anu Mason RN - 11/26/2024 9:42 AM CDT We are pleased that you and your doctor have chosen [facility] for your surgery. We hope that the following information will help make your visit a pleasant one. Surgery Date: 12/02/2024 Before your surgery: Notify your doctor of ANY change in your health such as a cold, sore throat, fever, any infection or a change in the problem for which you are having your surgery. Follow any instructions given to you by your doctor or surgeon. Check with your doctor if you need to STOP taking: Aspirin (ordered by your doctor) Plavix Coumadin One week before surgery STOP taking: All herbal supplements Aspirin (not ordered by your doctor) Aleve, Advil, Motrin, Ibuprofen, or other similar medications (Tylenol is okay). 24 hours before your surgery: No smoking or alcoholic drinks. Night before your surgery: Do not eat or drink anything after midnight. Follow surgeon's instructions for anti-bacterial shower night before and morning of surgery. Day of surgery: Do not swallow any water when you brush your teeth. ONLY take these pills with a tiny sip of water. Pre-Surgery Instructions Medication Instructions albuterol 2.5 mg /3 mL (0.083 %) nebulizer solution Take as prescribed albuterol HFA (PROVENTIL HFA,VENTOLIN HFA,PROAIR HFA) 90 mcg/actuation inhaler Take as prescribed apixaban (ELIQUIS) 5 mg tablet Stop taking 3 days prior to surgery aspirin 81 mg enteric coated tablet Stop taking 7 days prior to surgery balsalazide (COLAZAL) 750 mg capsule Take morning of surgery cholecalciferol (VITAMIN D-3) 1,000 unit capsule Stop taking 7 days prior to surgery docusate sodium (COLACE) 100 mg capsule Hold the morning of surgery empagliflozin (JARDIANCE) 10 mg tablet Hold the morning of surgery ferrous sulfate 325 mg (65 mg of elemental iron) tablet Stop taking 7 days prior to surgery aaigektrjif-ovwoaqfse-jmstndbm (Trelegy Ellipta) 100-62.5-25 mcg inhaler Take as prescribed furosemide (LASIX) 40 mg tablet Hold the morning of surgery lysine 1,000 mg tablet Stop taking 7 days prior to surgery multivitamin capsule Stop taking 7 days prior to surgery omeprazole (PriLOSEC) 20 mg capsule Take as prescribed potassium chloride ER (KLOR-CON) 20 mEq CR tablet Hold the morning of surgery pramipexole (MIRAPEX) 1 mg tablet Take as prescribed pregabalin (LYRICA) 25 mg capsule Take morning of surgery roflumilast (DALIRESP) 500 mcg tablet Take morning of surgery rosuvastatin (CRESTOR) 20 mg tablet Take morning of surgery sacubitriL-valsartan (ENTRESTO) 49-51 mg tablet Hold the morning of surgery sertraline (ZOLOFT) 25 mg tablet Take as prescribed sotaloL (BETAPACE) 80 mg tablet Take morning of surgery spironolactone (ALDACTONE) 25 mg tablet Hold the morning of surgery tamsulosin (FLOMAX) 0.4 mg extended release capsule Take as prescribed traMADoL (ULTRAM) 50 mg tablet Take as prescribed traZODone (DESYREL) 100 mg tablet Take as prescribed Use no make-up, nail armenian, lotions, oils or powders on your skin. Wear comfortable clothes that will not be tight in the area of your surgery. Leave all valuables and jewelry (including all body piercing jewelry) at home. Please bring your a photo ID and insurance cards with you. Check in at the Registration Desk downstairs in the Ambulatory Surgery Department. You will come inthe main entrance and go down the hoover until you see the [employer]/coffee shop, there will be elevators to the right, take those down to LL1. You will exist the elevators to the right and go down thehall and you will pass Medical Imaging on the left and we will be the next department on the right,you will see the sign above that says Ambulatory Surgery Department check-in. After your Outpatient Surgery: You must have a responsible adult to drive you home, you will not be allowed to drive or take a cabhome. We recommend you have someone stay with you for 24 hours after your surgery. What to bring if you are spending the night with us: Bring toiletry items such as: robe, slippers, toothbrush, toothpaste, brush or comb. Bring contact lens, hearing aids, glass cases and denture container if you use any of these items. The hospital will provide you with a gown. Questions or concerns: If you have any questions or concerns regarding your procedure, contact your surgeon as soon as possible. If you have questions regarding your Pre-Admission Testing, please call us. We can be reached at the number posted at the top of the page. 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 Overactive bladder Release Upon Ordering for 1 Occurrences starting 12/02/2024 documented as of this encounter Procedures Procedure Name Priority Date/Time Associated Diagnosis Comments ECG 12-LEAD STAT 12/02/2024 9:46 AM CDT POTASSIUM, WHOLE BLOOD STAT 12/02/2024 9:35 AM CDT documented in this encounter Results * ECG 12 lead (12/02/2024 9:46 AM CDT) 12/02/2024 9:46 AM CDT Narrative [facility] - 12/02/2024 3:40 PM CDT Vent Rate: 60 bpm RR Interval: 994 msec NC Interval: 136 msec QRS Duration: 146 msec QT Interval: 460 msec QTC Interval: 460 msec P-R-T [place]: -42 - -48 - 18 degrees IMPRESSION: [...] ECG Electronically Signed By: John Post MD Rinku Coates MD ECG ORDERABLES Final Result Performing Organization Address City/[facility]/ZIP Co de Phone Number [facility] [employer] [place] * Potassium, whole blood (12/02/2024 9:35 AM CDT) Potassium, bld 3.6 3.3 - 4.9 mmol/L Comment: Interpretive Data This method is not able to assess for hemolysis, which may falsely increase potassium concentrations. If further testing is needed to evaluate this result, consider in-laboratory plasma potassium. Current Interpretive Data was last revised on 2022. 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 Overactive bladder Hypertonicity of bladder Urolith Unspecified urinary calculus documented in this encounter Admitting Diagnoses Diagnosis Urethral tumor Urolith Unspecified urinary calculus Overactive bladder Hypertonicity of bladder documented in this encounter Administered Medications Inactive Administered Medications - up to 3 most recent administrations Medication Order MAR Action Action Date Dose Rate Site acetaminophen (TYLENOL) tablet 1,000 mg 1,000 mg, oral, Once, On Sun12/02/24 at 1000, For 1 dose, Pre-Op, Indications: Pre-Emptive AnalgesiaIndications:Pre-Emp tive Analgesia Given 12/02/2024 9:49 AM CDT 1,000 mg iohexoL (OMNIPAQUE) 240 mg iodine/mL injection solution 50 mL 50 mL, intra-catheter, Once in imaging, contrast, Starting on Sun12/02/24 at 1217, For 1 dose Contrast Given 12/02/2024 12:18 PM CDT 15 mL Lactated Ringer's (LR) infusion 30 mL/hr, intravenous, Continuous, Starting on Sun12/02/24 at 1000, Pre-Op Restarted 12/02/2024 12:04 PM CDT Rate/Dose Verify 12/02/2024 11:18 AM CDT 30 mL/ hr New Bag 12/02/2024 9:50 AM CDT 30 mL/hr 30 mL/hr documented in this encounter Discontinued Medications Medication Sig Discontinue Reason Start Date End Da te lysine (L-LYSINE) 500 mg tablet 500 mg. Therapy completed 12/08/2014 11/26/2024 cyclobenzaprine (FLEXERIL) 10 mg tablet Take 1 tablet (10 mg total) by mouth 3 (three) times a day as needed for pain Therapy completed 12/15/2021 11/26/2024 documented as of this encounter Active and Recently Administered Medications Times are shown in CDT. Scheduled Medication Order 11/30/2024 12/01/2024 12/02/2024 acetaminophen (TYLENOL) tablet 1,000 mg (COMPLETED) 1,000 mg, oral, Once, On Sun12/02/24 at 1000, For 1 dose, Pre-Op, Indications: Pre-Emptive Analgesia 0949 (Given - Provid er: Willard May RN) ceFAZolin (ANCEF) 1 gram/10 mL in sterile water (premix) 3,000 mg (COMPLETED) 3,000 mg, intravenous, at 600 mL/hr, Administer over 3 Minutes, Once, On 12/02/24 at 1000, For 1 dose, Pre-Op, Administer within 60 minutes of incision., Indications: Prophylaxis, Surgical 1128 (Given - Provid er: Toby Juarez CRNA) Continuous Medication Order 11/30/2024 12/01/2024 12/02/2024 Lactated Ringer's (LR) infusion 30 mL/hr, intravenous, Continuous, Starting on 12/02/24 at 1000, Pre-Op 0950 (New Bag - Prov ider: Willard May RN)1118 (Rate/Dose Verify - Provider: Toby Juarez CRNA)1203 (Paused - Provider: Toby Juarez CRNA - Comment: Switch to gravity)1204 (Restarted - Provider: Toby Juarez CRNA)1757 (Due: Stopped) PRN Medication Order 11/30/2024 12/01/2024 12/02/2024 iohexoL (OMNIPAQUE) 240 mg iodine/mL injection solution 50 mL (COMPLETED) 50 mL, intra-catheter, Once in imaging, contrast, Starting on 12/02/24 at 1217, For 1 dose 1218 (Contrast Given - Provider: Mariluz Toscano, RT) iohexoL (OMNIPAQUE) 240 mg iodine/mL injection solution (CANCELED) As needed, Starting on 12/02/24 at 1158, Intra-Op 1158 (Given - Provid er: Sherice Landa MD) sodium chloride 0.9% irrigation (CANCELED) As needed, Starting on 12/02/24 at 1137, Intra-Op 1137 (Given - Provid er: Sherice Landa MD) sterile water injection (CANCELED) As needed, Starting on 12/02/24 at 1149, Intra-Op 1149 (Given - Provid er: Sherice Landa MD) documented in this encounter Orders Medications Ordered That Gaurang ht Not Have Been Administered Count Last Ordered Date First Ordered Date amisulpride (BARHEMSYS) injection 10 mg 1 0 12/02/2024 Carrier Fluids for Secondary Infusion - 0.9% Sodium Chloride 1 12/02/2024 ceFAZolin (ANCEF) 1 gram/10 mL in sterile water (premix) 3,000 mg 1 12/02/2024 diphenhydrAMINE (BENADRYL) 5 0 mg/mL injection 12.5 mg 1 12/02/2024 fentaNYL (SUBLIMAZE) preserv ative free injection 25 mcg 1 12/02/2024 iohexoL (OMNIPAQUE) 240 mg i odine/mL injection solution 1 12/02/2024 iohexoL (OMNIPAQUE) 350 mg i odine/mL injection solution 50 mL 1 12/02/2024 meperidine (DEMEROL) preserv ative free injection 12.5 mg 1 12/02/2024 naloxone (NARCAN) 0.4 mg/mL injection 0.04-0.4 mg 1 12/02/2024 sodium chloride 0.9% flush 0.5-20 mL 1 12/2024 sodium chloride 0.9% irrigation 1 sterile water injection 1 12/02/2024 Nursing Count Last Ordered Date First Orde red Date DISCHARGE CALL PROVIDER 8 12/02/2024 DISCHARGE INSTRUCTIONS 1 12/02/2024 Discharge Count Last Ordered Date First Orde red Date DISCHARGE PATIENT 1 12/02/2024 documented in this encounter Care Teams Supervisor Channel Process Relationship Specialty Start Date End Date Lucio Oliveira MD PCP - General 07/02/19 Lucio Oliveira MD Family Medicine 07/02/19 documented as of this encounter
--- OUTSIDE RECORDS SUMMARY | 2024-12-03 15:37 | XMS_ITS | Encounter Summary ---
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 [N21.8] Overactive bladder [N32.81] Procedures VA CYSTO/URETERO W/LITHOTRIPSY &INDWELL STENT INSRT VA BIOPSY URETHRA VA CYSTO W/URETEROSCOPY W/RMVL/MANJ STONES CYSTOSCOPY, RIGHT URETEROSCOPIC STONE EXTRACTION, LITHOTRIPSY, RIGHT STENT PLACEMENT, BIOPSY OF URETHRAL LESION WITH AWAD CATHETER PLACEMENT Referral ID Status Reason Start Date Expiration Date Visits Re quested Visits Authorized [id number] 1 1 Encounter Details Date Type Department Care Team (Late st Contact Info) Description 12/02/2024 11:05 AM CDT - 12/02/2024 12:35 PM CDT Surgery [facility] Operating Room [address] [place] [address] [place] [address] [place] [address] CYSTOSCOPY, RIGHT RETROGRADE PYELOGRAM, RIGHT URETEROSCOPIC STONE EXTRACTION, RIGHT LASER LITHOTRIPSY, RIGHT URETERAL STENT PLACEMENT, BIOPSY OF URETHRAL LESION WITH Fulgeration Social History Tobacco Use Types Packs/Day Years [...] on file 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 * General Anesthesia (Discharge Care) ([place]) * Cystoscopy (Discharge Care) ([place]) * Lithotripsy (Discharge Care) ([place]) * Ciprofloxacin (By mouth) ([place]) * Tramadol (By mouth) ([place]) documented in this encounter Medications at Time [...] (premix) 3,000 mg 3,000 mg intravenous Once Sheirce Santos MD Lactated Ringer's (LR) infusion 30 [...] in this encounter Nursing Notes * Anu Mason RN - 11/26/2024 9:45 AM CDT 11/26/24 [...] on right side Surgeon: Sherice Landa MD Rn Midwife: None Anesthesia: General Indications: This is a [...] - TELEPHONE ONLY, NO PHYSICAL EXAM - [facility] PAT Date: 11/26/24 PAT RN completed assessment [...] -- -- -- Jean Claude Ross MD [id number] (Trelegy Ellipta) 100-62.5-25 mcg inhaler -- -- -- Provider, MD Jean Claude furosemide (LASIX) 40 mg tablet -- 03/08/17 -- ProviderJean Claude MD lysine 1,000 mg tablet -- 07/30/69 -- Provider, MD Jean Claude multivitamin capsule -- -- -- Jean Claude Ross MD omeprazole (PriLOSEC) 20 mg capsule -- 12/11/14 -- Slick Adams MD 20 mg. potassium chloride ER (KLOR-CON) 20 mEq CR tablet -- 12/16/18 -- ProviderJean Claude MD pramipexole (MIRAPEX) 1 mg tablet -- [...] mg tablet -- 01/15/24 -- Xiomara Fisher PLANNING ENGINEER Take 1 tablet (80 mg total) by [...] that you and your doctor have chosen [facility] for your surgery. We hope that the [...] Stop taking 7 days prior to surgery unpqjxrjztt-ejzzngvyg-glghcuhg (Trelegy Ellipta) 100-62.5-25 mcg inhaler Take as [...] Take as prescribed Use no make-up, nail turkmen, lotions, oils or powders on your skin. [...] down the hoover until you see the [employer]/coffee shop, there will be elevators to the [...] AM CDT) 12/02/2024 9:46 AM CDT Narrative [facility] - 12/02/2024 3:40 PM CDT Vent Rate: 60 bpm RR Interval: 994 msec [place] Interval: 136 msec QRS Duration: 146 msec QT Interval: 460 msec QTC Interval: 460 msec P-R-T [place]: -42 - -48 - 18 degrees IMPRESSION: [...] Rinku Coates MD ECG ORDERABLES Final Result [facility] * Potassium, whole blood (12/02/2024 9:35 [...] 9:35 AM CDT 12/02/2024 9:48 AM CDT us Rinku Coates MD LAB BLOOD ORDERABLES F inal Result [facility] ([place]) 1 [facility] Department [place] [address] documented in this encounter Visit Diagnoses Diagnosis 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 Overactive bladder Hypertonicity of bladder Urolith Unspecified urinary calculus 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 Overactive bladder Hypertonicity of bladder documented in this encounter Admitting Diagnoses Diagnosis Urethral tumor Urolith Unspecified urinary calculus Overactive bladder Hypertonicity of bladder documented in this encounter Administered Medications Inactive Administered Medications - up to 3 most recent administrations Medication Order MAR Action Action Date Dose Rate Site acetaminophen (TYLENOL) tablet 1,000 mg 1,000 mg, oral, Once, On Sun12/02/24 at 1000, For 1 dose, Pre-Op, Indications: Pre-Emptive AnalgesiaIndications:Pr e-Emptive Analgesia Given 12/02/2024 9:49 AM CDT 1,000 mg iohexoL (OMNIPAQUE) 240 mg iodine/mL injection solution 50 mL 50 mL, intra-catheter, Once in imaging, contrast, Starting on Sun12/02/24 at 1217, For 1 dose Contrast Given 12/02/2024 12:18 PM CDT 15 mL iohexoL (OMNIPAQUE) 240 mg iodine/mL injection solution As needed, Starting on Sun12/02/24 at 1158, Intra-Op Given 12/02/2024 11:58 AM CDT 15 mL Surgical Site Lactated Ringer's (LR) infusion 30 mL/hr, intravenous, Continuous, Starting on Sun12/02/24 at 1000, Pre-Op Restarted 12/02/2024 12:04 PM CDT Rate/Dose Verify 12/02/2024 11:18 AM CDT 30 mL/ hr New Bag 12/02/2024 9:50 AM CDT 30 mL/hr 30 mL/hr sodium chloride 0.9% irrigation As needed, Starting on Sun12/02/24 at 1137, Intra-Op Given 12/02/2024 11:37 AM CDT 3,000 mL Surgical Site sterile water injection As needed, Starting on Sun12/02/24 at 1149, Intra-Op Given 12/02/2024 11:49 AM CDT 3,000 mL Surgical Site documented in this encounter Discontinued Medications Medication [...] Continuous, Starting on Sun12/02/24 at 1000, Pre-Op 0950 (New Bag - [...] on Sun12/02/24 at 1217, For 1 dose 1218 (Contrast Given - Provider: Mariluz Toscano RT) iohexoL (OMNIPAQUE) 240 mg iodine/mL injection solution (CANCELED) As needed, Starting on Sun12/02/24 at 1158, Intra-Op 1158 (Given - Provid er: Sherice aLnda MD) sodium chloride 0.9% irrigation (CANCELED) As needed, Starting on Sun12/02/24 at 1137, Intra-Op 1137 (Given - Provid er: Sherice Landa MD) sterile water injection (CANCELED) As needed, Starting on Sun12/02/24 at 1149, Intra-Op 1149 (Given - Provid [...] injection 25 mcg 1 12/02/2024 iohexoL (OMNIPAQUE) 350 mg i odine/mL injection solution 50 mL 1 12/02/2024 meperidine (DEMEROL) preserv ative free injection 12.5 mg 1 12/02/2024 naloxone (NARCAN) 0.4 mg/mL injection 0.04-0.4 mg 1 12/02/2024 sodium chloride 0.9% flush 0.5-20 mL 1 12/2024 Nursing Count Last Ordered Date First Orde red Date DISCHARGE CALL PROVIDER 8 12/02/2024 DISCHARGE INSTRUCTIONS 1 12/02/2024 Discharge Count Last Ordered Date First Orde red Date DISCHARGE PATIENT 1 12/02/2024 documented in this encounter Care Teams Bill Poster Installer Relationship Specialty Start Date End Date Lucio Oliveira MD PCP - General 07/02/19 Lucio Oliveira MD Family Medicine 07/02/19 documented as of this encounter
--- OUTSIDE RECORDS SUMMARY | 2024-12-03 15:38 | XMS_ITS | Encounter Summary ---
Author Organization [facility] Healthcare Address [address] [place] [address] Care Team Providers Care Guide Foreign Tour Name Role Phone Lucio Oliveira MD Primary Care Provider [phone] Lucio Oliveira MD Unavailable [phone] Encounter Details Date Type Department Care Team (Late st Contact Info) Description 09/08/2024 Orders Only [facility] Health Information Management [address] [place] [address] Nav Morejon MD [address] [address] Social History Tobacco Use Types Packs/Day Years Used Date Smoking Tobacco: Never Alcohol Use Standard Drinks/Week Comments No 0 (1 standard drink = 0.6 oz pur e alcohol) Sex and Gender Information Value Date Recorded Sex Assigned at Not on file 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
--- OUTSIDE RECORDS SUMMARY | 2024-12-03 15:38 | XMS_ITS | CONTINUITY OF CARE DOCUMENT ---
Author Name lebron diana Address Unknown Organization [facility] Address [address] [place] [address] Phone [phone] Care Team Providers Care Briquette Maker Name Role Phone Kaitlin GALVAN, Marco Unavailable SCHWMONA FLAT HAMMERER, HAIR Unavailable SCHWIND FLAT HAMMERER, HAIR Unavailable PROBLEMS Condition Status Date Provider [...] In-person encounter Office Visit Marco Madrigal MD [facility] - In-person encounter Office Visit Scotty Shultz MD [facility] - In-person encounter Office Visit Scotty Shultz MD [facility] PolycythemiaHypogonadism, low testosterone - In-person encounter Office Visit Marco Madrigal MD [facility] - In-person encounter Office Visit Marco Madrigal MD [facility] Other symptoms involving cardiovascular systemSLEEP APNEACOPDHTN [...] Adilsonelianedevon oxygen saturation, oximetry 94 % Tiffanie Arerdondosheebaelianevishalvicente respiratory rate E&M 16 /min Tiffanie Flowers [...] Payer name Policy type / Coverage type [place] red libertarian ID AETNA MEDICARE Commercial insurance Radico M [id number] ADVANCE DIRECTIVES Name Date DISCUSSED - NO [...] half. Orders: 9 9244 MOD C omplex (CPT-[id number]) Scotty Shultz MD Hem/Onc New Patient :The [...] blood work. Orders: E rythropoietin (EPO), Serum (122842) J AK2 V617F Rfx/Exon 12 (270902) C BC (INCLUDES DIFF/PLT) (6399) U RINALYSIS, COMPLETE (5463) 9 9244 MOD C omplex (CPT-[id number]) Scotty Shultz MD Cardiology:Refer to Dr. Shultz [...] Name Provider Procedure Notes S tatus SNOMED-CT: 18667214 Physical Exam, Performed: Pulse Exam of Foot Marco Madrigal MD completed EKG Marco Madrigal MD completed SNOMED-CT: 466437489 269445 Current Medications Documented Marco Madrigal MD completed SNOMED-CT: 938740359 551650 Current Medications Documented Scotty Shultz MD completed SNOMED-CT: 873331816 574123 Current Medications Documented Scotty Shultz MD completed SNOMED-CT: 04090659 Physical Exam, Performed: Pulse Exam of Foot Marco Madrigal MD completed SNOMED-CT: 649073426 278706 Current Medications Documented Marco Madrigal MD completed Stress EKG Abi Reed MD completed Regadenoson, 4 units Marco Madrigal MD completed Cardiolite, 2 units Marco Madrigal MD completed SPECT Images Abi Reed MD complet ed SNOMED-CT: 12320737 Physical Exam, Performed: Pulse Exam of Foot Marco Madrigal MD completed SNOMED-CT: 919617803 457965 Current Medications Documented Marco Madrigal MD completed
--- OUTSIDE RECORDS SUMMARY | 2024-12-03 15:38 | XMS_ITS | Continuity of Care Document ---
Author Organization [facility] Address [address] [place] [address] Phone Care Team Providers Care Supervisor Properties Name Role Phone Rebecca Rowland Unavailable Unavailable Procedures Procedure Date Eye Exam, New Patient Refraction Advance Directives Directive Yes / No Effective Date File Name No Information Encounters Encounter Description Practice Location Reason(s) For Visit Diagnoses Date Provider Providers Copied on Encounter [facility], [address], [place], [place], [id number], [place] tel:[phone] [facility] No Information 0-201 0 Janett Fernandez. [address] , [address], [place], [address], [place]. tel:[phone] Family History Family Member Type Diagnosis Age At Onset No Information Payers Payer name Insurance type Covered democrat ID Authoryamilaa shereeneeraj(s) [employer] Plan [id number] Social History Type Description Quantity Date Captured [...]
--- OUTSIDE RECORDS SUMMARY | 2024-12-03 15:38 | XMS_ITS | Clinical Summary ---
Author Organization [facility] Address [address] [place] [address] Phone Care Team Providers Care Cellar Worker Name Role Phone Lucio Oliveira MD Primary Care Provider [phone] Allergies Active Allergy Reactions Criticality Noted Date Comments Codeine Nausea And Vomiting High 12/16/2018 Methylprednisolone Nausea And Vomiting 07/13/20 16 Prednisone Nausea And Vomiting 09/18/2019 Medications albuterol (2.5 MG/3ML) 0.083% nebulizer solution Inhale 2.5 mg. Activ e amLODIPine (NORVASC) 10 MG tablet Take 10 mg by mouth daily. 07/14/20 16 Active apixaban (ELIQUIS) 5 MG tablet Take by mouth 2 times daily. Active clonazePAM (KlonoPIN) 2 MG tablet Take 2 mg by mouth. 07/16/20 15 Active furosemide (LASIX) 20 MG tablet Take 20 mg by mouth daily. 09/21/19 17 Active omeprazole (PriLOSEC) [address] capsule Take 20 mg by mouth daily. 12/12/19 15 Active oxybutynin XL (DITROPAN-XL) 15 MG 24 hr tablet Take 15 mg by mouth daily. 02/10/20 17 Active potassium chloride (KLOR-CON M20) 20 MEQ CR tablet Take 20 mEq by mouth daily. 09/21/19 17 Active pramipexole (MIRAPEX) 1 MG tablet Take 2 mg by mouth daily. 07/21/20 15 Active rosuvastatin (CRESTOR) 20 MG tablet Take 20 mg by mouth. Active traZODone (DESYREL) 100 MG tablet Take 200 mg by mouth 06/03/20 18 Active balsalazide (COLAZAL) 750 MG capsule TAKE 3 CAPSULES TWICE A DAY 4 02/15/20 19 Active [facility] BISACODYL 10 MG suppository See administration instructions 0 04/04/20 19 Active traMADol (ULTRAM) 50 MG tablet tramadol 50 mg tablet Active L-Lysine HCl 500 MG tablet Take 1,000 mg by mouth 12/09/19 15 Active aspirin EC 81 MG EC tablet Take 81 mg by mouth daily Active cholecalciferol (Vitamin D-[address]) 25 MCG (1000 UT) tablet Take by mouth Active dextromethorpha n-guaiFENesin (MUCINEX DM) 30-600 MG per 12 hr tablet Take 1 tablet by mouth 2 times daily Active Guar Gum (NUTRISOURCE FIBER) pack Take 1 packet by mouth daily Active benazepril (LOTENSIN) 40 MG tablet Take 40 mg by mouth 1 (one) time each day Active cyclobenzaprine (FLEXERIL) 10 MG tablet Take 10 mg by mouth every night 11/23/19 21 Active guaiFENesin (MUCINEX) 600 MG 12 hr tablet Take 1,200 mg by mouth 2 times daily Active Mirabegron ER 25 MG tablet sustained-relea se 24 hour 25 mg Active metOLazone (ZAROXOLYN) 5 MG tablet 04/11/20 21 Active ferrous sulfate 325 (65 Fe) MG tablet Take by mouth daily Active Vibegron (Gemtesa) 75 MG tablet Take by mouth Active benzonatate (TESSALON) 200 MG capsule TAKE 1 CAPSULE BY MOUTH THREE TIMES DAILY NEEDED FOR COUGH 07/06/20 21 Active losartan (COZAAR) 50 MG tablet Take 50 mg by mouth 1 (one) time each day 07/06/20 21 Active mesalamine (CANASA) 1000 MG suppository INSERT 1 SUPPOSITORY RECTALLY AT BEDTIME 06/28/20 21 Active diclofenac (CATAFLAM) 50 MG tablet Take 50 mg by mouth 2 (two) times a day 03/31/20 22 Active Active Problems Problem Noted Date Diagnosed [...] take trazodone 100 mg at bedtime. Immunizations Immunization Administration Dates Next Due Influenza Recombinant James [...] at Not on file Legal Sex Male 9:19 AM MDT Gender Identity Not on file Sexual Orientation [...] Comments Influenza Vaccine (Season Ended) 2025 04/29/20 Pneumococcal PPSV23/PCV13 65 + Years / High and Highest Risk Completed 08/07/2017, 07/07/2016 Insurance * Guarantor: Danial Wilson Account Type Relation to Patient Date of Phone Billing Address Personal/Family Self 1945 [facility] [address] [place] [address] [employer] Care Teams Cellar Worker Relationship Specialty Start Date End Date Lucio Oliveira MD [address] [place] [address] PCP - General Family Medicine 10/16/18
--- OUTSIDE RECORDS SUMMARY | 2024-12-03 15:38 | XMS_ITS | Encounter Summary ---
Author Organization [facility] Address [address] [place] [address] Care Team Providers Care Peanut Separator Name Role Phone Lucio Oliveira MD Primary Care Provider [phone] Lucio Oliveira MD Unavailable [phone] Encounter Details Date Type Department Care Team (Late st Contact Info) Description 12/21/[address] [facility] Health Information Management [address] [place] [id number] Scanning, Provider Social History Tobacco Use Types Packs/Day Years Used Date Smoking Tobacco: Never Alcohol Use Standard Drinks/Week Comments No 0 (1 standard drink = 0.6 oz pur e alcohol) Sex and Gender Information Value Date Recorded Sex Assigned at Not on file Legal Sex Male 2:18 AM PSYCHIATRIC MENTAL HEALTH NURSE Gender Identity Not on file Sexual [...] on filedocumented in this encounter Care Teams Peanut Separator Relationship Specialty Start Date End Date Lucio Oliveira MD PCP - General 07/02/19 Lucio Oliveira MD Family Medicine 07/02/19 documented as of this encounter
--- OUTSIDE RECORDS SUMMARY | 2024-12-03 15:38 | XMS_ITS | Referral Summary ---
Author Organization [address] Address [address] [place] [address] Care Team Providers Care Correctional Casework Specialist Name Role Phone Lucio Oliveira MD Primary Care Provider Lucio Oliveira MD Unavailable [phone] Encounters Date Type Department Care Team Description 12/02/2024 11:05 AM CDT - 12/02/2024 12:35 PM CDT Surgery [facility] Operating Room [address] [place] [address] Sherice Santos MD CYSTOSCOPY, RIGHT RETROGRADE PYELOGRAM, RIGHT URETEROSCOPIC STONE EXTRACTION, RIGHT LASER LITHOTRIPSY, RIGHT URETERAL STENT PLACEMENT, BIOPSY OF URETHRAL LESION WITH Fulgeration 12/02/2024 11:18 AM CDT Anesthesia Event [facility] Operating Room [address] [place] [address] Rick Platt MD Reynolds, Ethan Emerson, MD 12/02/2024 9:10 AM CDT - 12/02/2024 1:57 PM CDT Hospital Encounter [facility] Operating Room [address] [place] [address] Sherice Santos MD Urethral tumor; Calculus of other lower urinary tract location; Overactive bladder Discharge Disposition: Discharge to home or self care 11/17/2024 Telephone [facility] Cardiology [address] [place] [phone] Heber Alvarado MD Pre-op Urology 09/18/2024 Orders Only [facility] Cardiology [address] [place] [address] Nav Morejon MD 09/15/2024 Telephone [facility] Cardiology [address] [place] [phone] Heber Alvarado MD samples 09/08/2024 Orders Only [facility] Health Information Management [address] [place] [address] Nav Morejon MD from Last 3 Months [...] II 08/09/2021 Coronary artery disease invo lving akiak coronary artery of [place]kiak heart without angina pectoris 08/09/2021 Cough productive [...] 10/19/2017 Assessment & Plan (06/30/2019 1:54 PM FLOOR REPRESENTATIVE): He will try to get 30 minutes [...] elevator. Assessment & Plan (06/07/2018 1:52 PM FLOOR REPRESENTATIVE): Obesity is improving with lifestyle modifications. Discussed [...] hours. Assessment & Plan (06/30/2019 1:53 PM FLOOR REPRESENTATIVE): He will wear his VPAP auto nightly [...] set at 22/14 cm water pressure to [facility] for repair replace. Machine needs to [...] titration. Assessment & Plan (06/07/2018 1:52 PM FLOOR REPRESENTATIVE): He will wear his bilevel machine nightly [...] bedtime. Assessment & Plan (06/07/2018 1:52 PM FLOOR REPRESENTATIVE): He will try to practice good sleep [...] bedtime. Assessment & Plan (06/30/2019 1:54 PM FLOOR REPRESENTATIVE): He will take clonazepam 2 mg every [...] on file Legal Sex Male 2:18 AM FLOOR REPRESENTATIVE Gender Identity Not on file Sexual Orientation [...] 12/02/2024 9:25 AM CDT Plan of Treatment Not on file Medical Devices Implanted Type Area Acid Mixer Device Identifier Shelf Expiration Date Model / Serial / Lot [employer] Maximo Stent Ureteral Set Double Pigtail Tapered Tip Contour [id number] Hydroplus Coated [id number] - [id number] Implanted:Qty: 1 on 12/02/2024 by Sherice Santos MD at [facility] Right: Ureter [employer] Maximo 06/18/2027 [id number] / / [id number] Procedures Procedure Name Priority Date/Time Associated Diagnosis Comments MS AN ELECTIVE ENDOTRACHEAL AIRWAY Routine 12/02/2024 11:31 AM CDT ECG 12-LEAD STAT 12/02/2024 9:46 AM CDT POTASSIUM, WHOLE BLOOD STAT 12/02/2024 9:35 AM CDT CARDIOLOGY DOCUMENT SCAN Routine 09/08/2024 2:13 PM FLOOR REPRESENTATIVE CARDIOLOGY DOCUMENT SCAN 09/08/2024 BASIC METABOLIC PANEL Routine 06/14/2023 1:49 PM FLOOR REPRESENTATIVE Chronic heart failure with preserved ejection fraction (HCC) Benign hypertension with CKD (chronic kidney disease), stage II H/O cardiomyopathy POCT LIPID PANEL Routine 11/03/2022 1:10 PM CDT Coronary artery disease involving akiak coronary artery of akiak heart without angina pectoris Mixed hyperlipidemia from Last 3 Months or Most Recently Relevant to Health Maintenance Results * MS AN ELECTIVE ENDOTRACHEAL AIRWAY (12/02/2024 11:31 AM CDT) Narrative Toby Juarez CRNA - 12/02/2024 11:31 AM CDT Toby Juarez CRNA 12/02/2024 11:31 AM Airway Patient location: OR Urgency: elective Date/time: 12/02/2024 11:26 AM Indications for airway management: anesthesia and airway protection Difficult airway: no Staff: Placed by: NORY: Toby Juarez CRNA Emergent airway documentation: Risks [...] AM CDT) 12/02/2024 9:46 AM CDT Narrative [facility] - 12/02/2024 3:40 PM CDT Vent Rate: 60 bpm RR Interval: 994 msec MS Interval: 136 msec QRS Duration: 146 msec QT Interval: 460 msec QTC Interval: 460 msec P-R-T [place]: -42 - -48 - 18 degrees IMPRESSION: [...] ECG ORDERABLES Final Result Performing Organization Address City/[facility] Co de Phone Number [facility] * Potassium, whole blood (12/02/2024 9:35 [...] ORDERABLES F inal Result Performing Organization Address City/[facility] Co de Phone Number VONDA WILLIAMSON (OJAI) [address] [facility] Department [place] [address] * Cardiology Document Scan (09/08/2024 2:13 PM FLOOR REPRESENTATIVE) Anatomical Region Laterality Modality Other Nav Morejon MD [facility] PROCEDURES F inal Result * Cardiology Document Scan (09/08/2024) Anatomical Region Laterality Modality Other Nav Morejon MD [facility] CARDIAC SERVICES PROCEDURES F inal Result * (ABNORMAL) Basic metabolic panel (06/14/2023 1:49 PM FLOOR REPRESENTATIVE) Glucose 79 70 - 99 mg/dL [facility] [...] [facility] - 01 Blood 06/14/2023 1:49 PM FLOOR REPRESENTATIVE 06/14/2023 Narrative [facility] - 06/15/2023 9:11 AM FLOOR REPRESENTATIVE Performed at: 01 - [facility] [place] [id number] Cutting Tool Sharpener: Uday Morocho PhD, Phone: [phone] Specimen Comment: A courtesy copy of this report has been sent to [facility], Specimen Comment: [phone] Rey Pal MD LAB BLOOD ORDERABLES Fin al Result [facility] - 01 * POCT lipid panel (11/03/2022 1:10 PM CDT) [facility] Cholesterol, POC 128 mg/dL Comment:GLU = 134 [...] Insurance [employer] MEDICARE MEDICARE MEDICARE Care Teams Correctional Casework Specialist Relationship Specialty Start Date End Date Lucio Oliveira MD PCP - General 07/02/19 Lucio Oliveira MD Family Medicine 07/02/19
--- OUTSIDE RECORDS SUMMARY | 2024-12-03 15:38 | XMS_ITS | Patient Health Record ---
Author Organization [facility] Address [address] [place] [address] Care Team Providers Care Emblem Maker Name Role Phone TAMMIE JOSEPH MD Primary Care Provider Unavail able Nancy Paige Unavailable [phone] GOKUL CARNEY Unavailable Unavailable Anastasia Sweeney Unavailable [phone] Allergies Allergen (clinical drug ingredient) Drug/Non Drug [...] Oxazepam (BZO) n 0 - 300 ng/ml 1-anvrisvhmy-9,5-vmcyfkyl-6,3-diphenylpyrrolidine (AKBAR P) n 0 - 300 ng/ml Methamphetamine (MET) n 0 - 1000 ng/ml Methylenedioxymethamphetamine (MDMA) n 0 - 500 ng/ml Morphine (MOP 300/UKS0484) n 0 - 300 ng/ml Methadone (MTD) n 0 - 300 ng/ml Phencyclidine (PCP) n 0 - 25 ng/ml Nortriptyline (TCA) n 0 - 1000 ng/ml Oxycodone n 0 - 300 ng/ml x n 0 - 300 ng/ml Reason For Referral No Information Medications Medication SIG (Take, Route, Frequency, Duration) Notes Start Date End Date Status Roflumilast 250 MCG Oral for 28 Days Not-Taking Ipratropium [place] 0.02 % INHALE 1 VIAL IN NEBULIZER THREE TIMES DAILY NEEDED FOR SHORTNESS OF BREATH FOR WHEEZING FOR 1 MONTH (USE IN THE NEBULIZER WITH ALBUTEROL) Inhalation for 24 Days Not-Taking Roflumilast 500 MCG TAKE 1 TABLET BY MOUTH ONCE DAILY Oral for 30 Days Not-Taking Roflumilast 250 MCG TAKE 1 TABLET BY MOUTH ONCE DAILY FOR 4 WEEKS Oral for 28 Days Not-Taking Ferrous Sulfate 325 (65 Fe) MG 1 tablet Orally Three times a Week Active Multivitamin - 1 tablet Orally Once a day Active Lysine 1000 MG as directed Orally Active Vitamin D 50 MCG (2000 UT) 1 tablet Oral ly Once a day Active Cholecalciferol 100 MCG (4000 UT) 1 tablet Orally Once a day Active Amoxicillin 875 MG TAKE 1 TABLET BY MOUTH EVERY 12 HOURS FOR 5 DAYS Oral for 5 Days Not-Taking Pregabalin 75 MG 1 capsule in the evening 1 to 3 hours before bedtime Orally Once a day Active Empagliflozin 10 MG 1 tablet Orally Once a day Active Metoprolol Tartrate 25 MG TAKE 1 TABLET BY MOUTH TWICE DAILY Oral for 90 Days Not-Taking Trelegy Ellipta 100-62.5-25 MCG/ACT 1 puff Inhalation Once a day Active clonazePAM 0.5 MG TAKE ONE-HALF TABLET BY MOUTH EVERY DAY AT BEDTIME ADMINISTER 30 MINUTES BEFORE BEDTIME Oral for 30 Days Not-Taking traZODone HCl 100 MG Oral for 30 Days Active Eliquis 5 MG Oral for 90 Days Active predniSONE 10 MG TAKE 4 TABLETS DAILY FOR 3 DAYS IN THE MORNING WITH FOOD, DECREASED BY 1 TAB EVERY 3 DAYS UNTIL COMPLETED Oral for 12 Days Not-Taking predniSONE 10 MG Oral for 12 Days Not-Taking methylPREDNISolone 4 MG Oral for 6 Days Not-Taking Albuterol Sulfate (2.5 MG/3ML) 0.083% Inhalation for 30 Days Not-Taking Balsalazide Disodium 750 MG 2 capsules O rally Twice a day Active HYDROcodone-Acetaminophen 5-325 MG Oral for 3 Days Not-Taking HYDROcodone-Acetaminophen 5-325 MG TAKE 1 TO 2 TABLETS BY MOUTH EVERY 6 HOURS NEEDED Oral for 3 Days Not-Taking Ketorolac Tromethamine 10 MG TAKE 1 TABLET BY MOUTH EVERY 6 HOURS NEEDED Oral for 5 Days Not-Taking Balsalazide Disodium 750 MG Oral for 90 Days Not-Taking Sotalol HCl 80 MG TAKE 1 TABLET BY MOUTH EVERY 12 HOURS Oral for 30 Days Not-Taking Ketorolac Tromethamine 10 MG Oral for 5 Days Not-Taking Lidocaine 5 % 1 patch remove after 12 hours Externally Once a day Active Potassium Chloride 20 MEQ 1 packet with food Orally Once a day Active Aspirin 81 81 MG 1 tablet Orally Once a day Active Sertraline HCl 25 MG Take 1 tablet by mouth once daily for 30 Active Albuterol Sulfate (2.5 MG/3ML) 0.083% Inhalation for 5 Days Acti ve Rosuvastatin Calcium 20 MG Oral for 90 Days Active Eszopiclone 1 MG TAKE 1 TABLET BY MOUTH AT BEDTIME AT SLEEP LAB IF NEEDED AT THE START OF THE TEST DO NOT TAKE AT HOME Oral for 1 Days Not-Taking Eszopiclone 1 MG Oral for 1 Days Not-Taking methylPREDNISolone 4 MG Oral for 6 Days Not-Taking Spironolactone 25 MG Oral for 90 Days Active Docusate Sodium 100 MG TAKE 1 CAPSULE BY MOUTH ONCE DAILY NEEDED FOR CONSTIPATION Oral for 30 Days Active Furosemide 40 MG Oral for 90 Days Active Entresto 49-51 MG Oral for 90 Days Active Pramipexole Dihydrochloride 1 MG Oral for 90 Days Active Sotalol HCl 80 MG Oral for 90 Days Active traMADol HCl 50 MG TAKE 1 TABLET BY MOUTH TWICE DAILY FOR PAIN Oral for 15 Days Active Roflumilast 500 MCG Oral for 90 Days Active Omeprazole 20 MG Oral for 90 Days Active Albuterol Sulfate HFA 108 (90 Base) MCG/ACT INHALE 2 PUFFS BY MOUTH EVERY 4 HOURS NEEDED FOR SHORTNESS OF BREATH OR WHEEZING Inhalation for 17 Days Active Jardiance 10 MG Oral for 90 Days Active Klor-Con M20 20 MEQ Oral for 90 Days Active Tamsulosin HCl 0.4 MG TAKE 1 CAPSULE BY MOUTH AT BEDTIME Oral for 90 Days Active Social History Tobacco Use: Social History Observation Description Date Details (start date - stop date) Never Smoker NA - NA Sex Assigned At : Social History Observation Description Sex Assigned At Male Tobacco Control (Standard) Question Answer Notes Tobacco use: Nonsmoker Section Notes: Lives in [place] with w hussein of 56 yrs, 2 kids. Grew up [address] [facility]. 6 siblings. Education/employment: Retired, worked at [employer] for 33 yrs, then worked at [employer]. service: 4 yrs [employer]. Lives in [place] with w hussein of 56 yrs, 2 kids. [address] up [address]. 6 siblings. Education/employment: Retired, worked at [employer] for 33 yrs, then worked at [employer]. service: 4 yrs [employer]. Lives in [place] with w hussein of 56 yrs, 2 kids. Grew up [place]. 6 siblings. Education/employment: Retired, worked at [employer] for 33 yrs, then worked at [employer]. service: 4 yrs [employer]. Problems Problem Type SNOMED Code ICD Code Onset Dates Problem Status W/U Status Risk Notes Problem Chronic insomnia (989760642) Chronic insomnia (F51.04) Active confirmed Problem Adjustment disorder (84153948) Adjustment disorder with other symptom (F43.29) Active confirmed Problem Obstructive sleep apnea syndrome (87843057) KIRSTEN treated with BiPAP (G47.33) Active confirmed Problem Benign hypertension (42127858) Benign hypertension (I10) 6 Active confirmed Vital Signs Heart Rate 63 /min 11/14/2024 Height-cm 172.72 cm 11/14/2024 Blood pressure diastolic 96 mm Hg 11/14/2024 Weight-kg 127.91 kg 11/14/2024 Height 68 in 11/14/2024 Blood pressure systolic 190 mm Hg 11/14/2024 Weight 282 lbs 11/14/2024 BMI 42.87 kg/m2 11/14/2024 Encounters Encounter Location Date Provider Diagnosis [facility] [employer] [place] [employer] [facility] [address] [facility] [address] [address] 11/14/2024 Nancy Paige Benign essential HTN I10 ; Encounter for screening for cardiovascular disorders Z13.6 and Dietary counseling and surveillance Z71.3 [facility] [employer] [place] [employer] [place] [address] [facility] [address] [address] 03/21/2024 Anastasia Patel Adjustment disorder with other symptom F43.29 ; Chronic insomnia F51.04 and KIRSTEN treated with BiPAP G47.33 [facility] [place] [employer] [facility] [address] [facility] [address] [address] 04/18/2024 Anastasia Woloszynek Adjustment disorder with other symptom F43.29 ; Chronic insomnia F51.04 and KIRSTEN treated with BiPAP G47.33 [facility] [employer] [facility] [address] [place] [address] 07/18/2024 Nancy Paige Adjustment disorder with other symptom F43.29 ; Chronic insomnia F51.04 and KIRSTEN treated with BiPAP G47.33 [facility] [address] [place] [address] 09/16/2024 Nancy Paige Chronic insomnia F51.04 ; Adjustment disorder with other symptom F43.29 ; KIRSTEN treated with BiPAP G47.33 and Benign hypertension I10 [facility] [employer] [place] [facility] [address] [place] [address] 07/31/2024 Nancy Paige Adjustment disorder with other symptom F43.29 [facility] [employer] [place] [address] [place] [address] 09/17/2024 Nancy Paige Assessments Encounter Date Diagnosis [...] evaluation and management - Encourage follow-up with pulmologist/sle part time receptionist for further evaluation and management Hypertension - Blood pressure reading high today - Does not check BP regularly at home Plan: - Encouraged purchase of a home blood pressure monitor - Follow up with senior java developer if evelated blood pressure persist - Encouraged to go to urgent care of ER if chest pain develops or concerns symptoms arise Follow-up in 2 months, sooner if concerns arise 11/14/2024 Benign essential HTN (ICD-10 - I10) 03/21/2024 Chronic insomnia (ICD-10 - F51.04) treated [...] assess mental health status after discontinuing Sertraline 11/14/2024 Encounter for screening for cardiovascular disorders (ICD-10 - Z13.6) 09/16/2024 Adjustment disorder with other symptom (ICD-10 [...] evaluation and management - Encourage follow-up with pulmologist/sle part time receptionist for further evaluation and management Hypertension - Blood pressure reading high today - Does not check BP regularly at home Plan: - Encouraged purchase of a home blood pressure monitor - Follow up with senior java developer if evelated blood pressure persist - Encouraged [...] evaluation and management - Encourage follow-up with pulmologist/sle part time receptionist for further evaluation and management Hypertension - Blood pressure reading high today - Does not check BP regularly at home Plan: - Encouraged purchase of a home blood pressure monitor - Follow up with senior java developer if evelated blood pressure persist - Encouraged to go to urgent care of ER if chest pain develops or concerns symptoms arise Follow-up in 2 months, sooner if concerns arise 09/16/2024 Benign hypertension (ICD-10 - I10) Adjustment [...] evaluation and management - Encourage follow-up with pulmologist/sle part time receptionist for further evaluation and management Hypertension - Blood pressure reading high today - Does not check BP regularly at home Plan: - Encouraged purchase of a home blood pressure monitor - Follow up with senior java developer if evelated blood pressure persist - Encouraged to go to urgent care of ER if chest pain develops or concerns symptoms arise Follow-up in 2 months, sooner if concerns arise 11/14/2024 Dietary counseling and surveillance (ICD-10 - Z71.3) 07/18/2024 KIRSTEN treated with BiPAP (ICD-10 - [...] Details Provider Name:Nancy almeida, 02/13/2025 01:00:00 PM, [address], [facility] [address], [place], [address], Insurance Providers Payer Name Payer Address Payer Phone Subscriber Number Group Number Insured Name Patient Relationship to Insured Coverage Start Date Coverage End Date [employer] [address] ABIGAIL SANTOS [phone] [id number] Danial Wilson Self - patient is the [...]
--- OUTSIDE RECORDS SUMMARY | 2024-12-03 15:38 | XMS_ITS | Encounter Summary ---
Author Organization [facility] Address [address] [place] [address] Care Team Providers Care Ampoule Washing Machine Operator Name Role Phone Lucio Oliveira MD Primary Care Provider [phone] Encounter Details Date Type Department Care Team (Latest Contact Info) Description 12/18/2008 Outpatient Historical [facility] BR[facility] Palacios, MD Pool NO ADDRESS ON FILE Other Degenerative Diseases of the Basal Ganglia Social History Tobacco Use Types Packs/Day Years Used Date Smoking Tobacco: Never Alcohol Use Standard Drinks/Week Comments No 0 (1 standard drink = 0.6 oz pur e alcohol) Sex and Gender Information Value Date Recorded Sex Assigned at Not on file Legal Sex Male 5:39 AM DICE MANAGER Gender Identity Not on file Sexual [...] TOTAL PROTEIN 6.9 6.3 - 8.6 g/dL [facility] POTASSIUM 4.6 3.5 - 4.9 mmol/L [facility] GLUCOSE 74 65 - 99 mg/dL [facility] AST 29 12 - 38 U/L [facility] BUN 15 6 - 20 mg/dL [facility] CALCIUM 9.6 8.6 - 10.2 mg/dL [facility] CHLORIDE 101 96 - 108 mmol/L [facility] ALBUMIN 4.2 3.4 - 4.8 g/dL [facility] CREATININE 1.12 0.67 - 1.17 mg/dL [facility] SODIUM 138 135 - 145 mmol/L [facility] ALT 31 0 - 41 U/L [facility] ALKALINE PHOSPHATASE 75 40 - 129 U/L [facility] BILIRUBIN TOTAL 0.5 0.2 - 1.0 mg/dL [facility] CO2 27 22 - 30 mmol/L [facility] GFR, >60 >=60 mL/min/1.7 sq meter [facility] GFR >60 >=60 mL/min/1.7 sq meter [facility] Comment: Modification of Diet in Renal Disease (MDRD) study formula. Estimated GFR rate interpretative information for both Americans and non- Americans is available on the [facility] Intranet at: [email or web address] Select: Lab Policies and Procedures Select: Reference Ranges - GFR 12/18/2008 1:49 PM CDT 12/18/2008 3:00 PM CDT us Pool Palacios MD CHEMISTRY ORDERABLES Edited INTERFACE SYSTEM Refer to clinic/hospital department [facility] CLIA# [id number] [address] [place] [address] * (ABNORMAL) CBC WITH DIFFERENTIAL (12/18/2008 1:49 PM CDT) MCV 100.8(H) 82.0 - 99.0 fL [facility] PLATELETS 245 140 - 350 K/uL [facility] HEMOGLOBIN 17.1(H) 13.6 - 16.5 g/dL [facility] RDW 13.8 11.5 - 14.5 % [facility] WBC 6.5 4.0 - 9.8 K/uL [facility] MCH 34.5(H) 27.2 - 32.6 pg [facility] MPV 11.3 9.3 - 12.4 fL [facility] HEMATOCRIT 50.0(H) 40.0 - 48.0 % [facility] RDW-STDEV 50.9(H) 37.1 - 48.7 fL [facility] RBC 4.96 4.50 - 5.40 M/uL [facility] MCHC 34.2 31.5 - 35.5 % [facility] NEUTROPHILS 60 45 - 70 % [facility] NEUTROPHIL ABSOLUTE 3.88 1.90 - 7.00 K/uL [facility] EOSINOPHILS 3 0 - 7 % [facility] EOSINOPHIL ABSOLUTE 0.19 0.00 - 0.70 K/uL [facility] LYMPHOCYTES 27 16 - 45 % [facility] LYMPHOCYTE ABSOLUTE 1.76 0.70 - 4.50 K/uL [facility] BASOPHILS 1 0 - 2 % [facility] BASOPHILS ABSOLUTE 0.06 0.00 - 0.20 K/uL [facility] MONOCYTES 9 3 - 13 % [facility] MONOCYTE ABSOLUTE 0.59 0.10 - 1.30 K/uL [facility] 12/18/2008 1:49 PM CDT 12/18/2008 3:01 PM CDT us Pool Palacios MD HEMATOLOGY ORDERABLES Edited INTERFACE SYSTEM Refer to clinic/hospital department [facility] CLIA# [id number] [address] [place] [place] [address] documented in this encounter Visit Diagnoses Diagnosis Other degenerative diseases of the basal ganglia documented in this encounter Care Teams Ampoule Washing Machine Operator Relationship Specialty Start Date End Date Lucio Oliveira MD [address] [place] [address] PCP - General Family Practice 10/21/18 documented as of this encounter
[2024-12-03 15:49] VITALS: BP 149/81; PULSE 58; RESP 19; TEMP 36.5; O2SAT 96
--- NOTE | 2024-12-03 16:30 | ED.MALEGU ---
HPI - Male Genitourinary General Chief complaint: Urogenital-Male <Coco Gipson PA-C - Last Filed: 12/05/24 10:20> Stated complaint: Hematuria/pain-had Lithotripsy done 12/02 <Coco Gipson PA-C - Last Filed: 12/05/24 10:20> Time Seen by Provider: 12/03/24 16:30 <Coco Gipson PA-C - Last Filed: 12/05/24 10:20> Focused HPI: This is a 78 year old male that presents to the ER for abdominal pain. Reports pain in his groin, upper abdomen. Reports he had a kidney stone removed yesterday at [facility] and has not been able to get comfortable since. GENERAL: Elderly, well-nourished, and in no acute distress. HEAD: Normocephalic, atraumatic. CHEST: Clear to auscultation. ?No respiratory distress. HEART: Regular rate and rhythm.? NEURO: ?Alert and oriented x3. Patient screened in triage and initial orders placed.? ?Additional care and disposition to be based upon?diagnostic testing and treatment. <Coco Gipson PA-C - Last Filed: 12/05/24 10:20> History of Present Illness HPI Narrative: Agree with assessment and documentation of Coco Gipson P.A.-C At the time of examination patient reports the most significant pain he is experiencing is in his R flank. He endorses a history of COPD, congestive heart failure, and hyperlipidemia. <Arabella Sandoval APRN - Last Filed: 12/03/24 21:00> Related Data Home medications: Home Medications ?Medication ?Instructions ?Recorded ?Confirmed ?Last Taken ?Type multivitamin (Multiple Vitamins 1 tablet PO DAILY 05/30/19 11/24/24 02/09/24 History tablet) cholecalciferol (vitamin D3) 100 4,000 unit PO DAILY 04/18/21 11/24/24 02/09/24 History mcg (4,000 unit) capsule (Vitamin D3) lysine HCl 1,000 mg tablet 1,000 mg PO DAILY 10/01/23 11/24/24 02/09/24 History apixaban 5 mg tablet (Eliquis) 5 mg PO BID 12/21/23 11/24/24 02/09/24 History aspirin 81 mg tablet,delayed 81 mg PO DAILY 12/21/23 11/24/24 02/09/24 History release (Adult Low Dose Aspirin) sacubitril 49 mg-valsartan 51 mg 1 tablet PO BID 02/11/24 11/24/24 Unknown History tablet (Entresto) empagliflozin 10 mg tablet 10 mg PO DAILY 03/24/24 11/24/24 Unknown History (Jardiance) spironolactone 25 mg tablet 25 mg PO DAILY 03/24/24 11/24/24 Unknown History tamsulosin 0.4 mg capsule mg PO 10/07/24 11/24/24 Unknown History tamsulosin 0.4 mg capsule (Flomax) 0.4 mg PO DAILY 10/09/24 11/24/24 Unknown History tramadol 50 mg tablet 50 mg PO Q6H PRN 10/09/24 11/24/24 Unknown History trazodone 100 mg tablet 100 mg PO QHS PRN 10/09/24 11/24/24 Unknown History <Coco Gipson PA-C - Last Filed: 12/05/24 10:20> Allergies/Adverse reactions: Allergies Allergy/AdvReac Type Severity Reaction Status Date / Time codeine AdvReac Mild CONSTIPATIO Verified 12/03/24 15:36 N methylprednisolone AdvReac Mild Vomiting Verified 12/03/24 15:36 prednisone AdvReac Unknown Vomiting Verified 12/03/24 15:36 <Coco Gipson PA-C - Last Filed: 12/05/24 10:20> Review of Systems Review of Systems: All systems reviewed & are unremarkable except as noted in HPI and below <Arabella Sandoval APRN - Last Filed: 12/03/24 21:00> [facility] Past Medical History Medical History: Medical History Gall bladder disease COPE (chronic obstructive pulmonary emphysema) Other ulcerative colitis without complications Elevated glucose QT prolongation Benign hypertension with chronic kidney disease Intentional overdose Chronic lower back pain Diabetic polyneuropathy Shortness of breath Obstructive sleep apnea Peripheral vascular disease Peripheral neuropathy Chronic anticoagulation Ataxia Lumbar spondylosis Atrial fibrillation Diagnosed 01/2022 Atrial flutter Diagnosis 06/2022. Diastolic heart failure BMI greater than 40 Chronic anemia Ulcerative colitis Pulmonary embolism (08/2018) Secondary erythrocytosis Related to COPD and obstructive sleep apnea. Previously received therapeutic phlebotomy. Tubulovillous adenoma of colon Overactive bladder Benign prostatic hyperplasia Hypertension Gastroesophageal reflux disease Chronic obstructive pulmonary disease Compression fx, thoracic spine Low serum vitamin D Anxiety Hyperlipidemia <Coco Gipson PA-C - Last Filed: 12/05/24 10:20> Surgical History Surgical History: Surgical History History of transurethral resection of prostate History of prostatectomy History of cardioversion History of esophageal dilatation History of colonoscopy with polypectomy History of extraction of renal calculus History of cystoscopy History of cardiac catheterization History of right hemicolectomy (06/10/19) Benign tubulovillous adenoma. History of decompression of ulnar nerve Left elbow. History of bilateral cataract extraction History of dental surgery <Coco Gipson PA-C - Last Filed: 12/05/24 10:20> Family History Family History: Family History Father Hypertension Malignant neoplasm of prostate Cancer Sibling Diabetes mellitus Family history of cardiovascular disease Hypertension Heart disease Heart problem Mother Family history of rheumatic fever Heart disease Asthma Acute myocardial infarction, Onset Age: 53 Heart problem Sibling Cancer Heart transplant recipient Other Family history of coronary artery disease Family history of lung cancer <Coco Gipson PA-C - Last Filed: 12/05/24 10:20> Social History Social History: Social History Social History: Surrogate decision maker: Akua Wilson, spouse. Code status: Do not resuscitate. 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 Spiritual care concerns: No <Coco Gipson PA-C - Last Filed: 12/05/24 10:20> Exam Narrative: GENERAL: Well appearing, well-nourished, non-toxic, in mild distress d/t pain. HEAD: Normocephalic, atraumatic. NECK: Supple. No adenopathy, no masses. RESPIRATORY: Airway patent, respirations nonlabored. Clear to auscultation bilaterally, no rales, rhonchi, wheezing. CARDIOVASCULAR: Regular rate and rhythm without murmurs, rubs, or gallops. Peripheral pulses 2+ and equal bilaterally. + CVA tenderness ABDOMINAL: Soft, tender with palpation LUQ, LLQ, and RLQ, + distended, no hepatosplenomegaly. Normoactive BS. MUSCULOSKELETAL: Moves all extremities. Strength/ROM intact without gross deformities. SKIN: Warm, dry, normal color. No rashes. NEURO: A&O X3. Speech clear. Cranial nerves II-XII intact. No ataxic movements. PSYCHIATRIC: Appropriate mood and affect. Normal interaction. <Arabella Snadoval APRN - Last Filed: 12/03/24 21:00> Course Vital Signs Vital signs: Vital Signs Temperature 97.7 F 12/03/24 15:49 Pulse Rate 58 L 12/03/24 15:49 Respiratory Rate 19 12/03/24 15:49 Blood Pressure 149/81 H 12/03/24 15:49 Pulse Oximetry 96 12/03/24 15:49 Oxygen Delivery Room Air 12/03/24 15:49 Temperature 97.7 F 12/03/24 15:49 Pulse Rate 62 12/03/24 21:30 Respiratory Rate 17 12/03/24 21:30 Blood Pressure 201/85 H 12/03/24 17:11 Pulse Oximetry 96 12/03/24 21:30 Oxygen Delivery Room Air 12/03/24 15:49 <Coco Gipson PA-C - Last Filed: 12/05/24 10:20> Vital Signs Temperature 97.7 F 12/03/24 15:49 Pulse Rate 58 L 12/03/24 15:49 Respiratory Rate 19 12/03/24 15:49 Blood Pressure 149/81 H 12/03/24 15:49 Pulse Oximetry 96 12/03/24 15:49 Oxygen Delivery Room Air 12/03/24 15:49 Temperature 97.7 F 12/03/24 15:49 Pulse Rate 62 12/03/24 21:30 Respiratory Rate 17 12/03/24 21:30 Blood Pressure 201/85 H 12/03/24 17:11 Pulse Oximetry 96 12/03/24 21:30 Oxygen Delivery Room Air 12/03/24 15:49 <Arabella Sandoval, HEAVY EQUIPMENT OPERATOR APPRENTICE - Last Filed: 12/03/24 21:00> MDM - Male Genitourinary MDM Narrative Medical decision making narrative: This is a 78 year old male who presents to the ER for abdominal pain. Reports pain in his groin, upper abdomen and R flank pain. Reports he had a kidney stone removed yesterday at [facility] and has not been able to get comfortable since. Labs Ordered: UA, CMP, CBC, lipase Imaging Ordered: CT abdomen pelvis Medications Ordered: Toradol 15 mg IV, [place] p.o. x 2 Results: Pt's CT scan indicates Interval placement of a right-sided double-J stent, in good position. Diagnosis: postoperative pain Consults: 1729- Spoke with Dr. Ko, who would like patient to get a repeat CT scan. He also advised patient receive Toradol for pain control. 2014- Spoke with Dr. Ko again, who reports pt's CT scan has no acute concerning findings. He reports pt can go home with a prescription for Toradol and Flomax. Dr. Ko advised pt to call the office tomorrow and he will see him as an outpatient. Patient Education/Shared MDM: 1999- Patient endorses continued pain in his abdomen and right flank after [place] PO. Results of imaging shared with patient. Explained conversation with Dr. Ko to patient. He should call Dr. Ko tomorrow to set up a follow-up appointment. Patient verbalizes understanding and is in agreement with plan for discharge. He will be given his 1st dose of Flomax and another dose of Ciprofloxacin here in the ER. Pt will not be discharged home with Toradol, as he is on Elliquis. He will be discharged home with 3 tablets of [place] for pain control at home since he can't take Toradol. Pt should try to stay hydrated upon discharge. All questions answered. Vital signs stable at time of discharge. Strict return precautions advised. <Arabella Sandoval APRN - Last Filed: 12/03/24 21:00> Differential Diagnosis Differential diagnosis: Likely urinary tract infection, acute retention of urine and other (surgical complication) <Arabella Sandoval APRN - Last Filed: 12/03/24 21:00> Lab Data Attestation: I reviewed the patient's lab results. <Arabella Sandoval APRN - Last Filed: 12/03/24 21:00> Result diagrams: 12/03/24 16:51 12/03/24 16:51 <Coco Gipson PA-C - Last Filed: 12/05/24 10:20> Labs: Lab Results 12/03/24 12/03/24 Range/Units 16:51 17:52 WBC 9.7 (4.5-10.0) K/mm3 RBC 4.40 L (4.6-6.20) M/mm3 Hgb 13.4 L (14.0-18.0) g/dL Hct 42.5 (42.0-52.0) % MCV 96.6 (80-100) fl MCH 30.5 (26-34) pg MCHC 31.5 L (32-36) g/dl RDW 13.6 (11.5-14.5) % Plt Count 244 (150-375) k/mm3 MPV 10.1 (7.4-10.4) fl Immature Gran % (Auto) 0.3 (0-0.5) % Neut % (Auto) 69.0 (45.5-73.1) % Lymph % (Auto) 20.6 (18.3-44.2) % Burt % (Auto) 7.1 (2.6-8.5) % Eos % (Auto) 2.2 (0-4.4) % Baso % (Auto) 0.8 (0.2-1.2) % Lymph # (Auto) 1.99 (0.9-3.2) K/mm3 Burt # (Auto) 0.7 H (0.1-0.6) K/mm3 Eos # (Auto) 0.2 (0-0.3) K/mm3 Baso # (Auto) 0.1 (0.0-0.1) K/mm3 Abs Immat Gran (auto) 0.03 (0.00-0.031) K/mm3 Absolute Neuts (auto) 6.7 (1.3-6.7) K/mm3 Absolute Nucleated RBC 0.000 (0.0-0.012) K/mm3 Nucleated RBC % 0.0 (0.0-0.2) % Sodium 136 L (137-145) mmol/L Potassium 3.9 (3.4-5.0) mmol/L Chloride 102 (98-107) mmol/L Carbon Dioxide 30 (22-30) mmol/L Anion Gap 4 (4-12) mmol/L BUN 9 D (9-20) mg/dL Creatinine 0.85 (0.7-1.3) mg/dL Estim Creat Clear Calc 81 ml/min Estimated GFR > 60 (59 - ) Glucose 94 (65-110) mg/dL Calcium 9.3 (8.4-10.2) mg/dL Total Bilirubin 0.9 (0.2-1.3) mg/dL AST 22 (17-59) U/L ALT 13 (6-50) U/L Alkaline Phosphatase 122 (38-126) U/L Total Protein 7.0 (6.3-8.2) g/dL Albumin 3.8 (3.5-5.1) g/dL Lipase 28 (23-300) U/L Urine Color Light red H (Yellow) Urine Appearance Turbid H (Clear) Urine pH 5.5 (5.0-9.0) Ur Specific Lane 1.015 (1.001-1.035) Urine Protein 3+ H (Negative) mg/dL Urine Glucose (UA) Negative (Negative) mg/dL Urine Ketones TNP Ur Blood (Man) 3+ H (Negative) Urine Nitrate Negative (Negative) Urine Bilirubin TNP Urine Urobilinogen TNP Leukocyte Esterase Rfl 2+ H (Negative) ЕКАТЕРИНА/UL Urine RBC >100 H (0-2) /hpf Urine WBC 21-50 H (0-3) /hpf Ur Squamous Epith Cells Occasional (Few) /hpf Urine Bacteria None seen /hpf Urine Casts 0-2 <Coco Gipson PA-C - Last Filed: 12/05/24 10:20> Lab Results 05/07/25 05/07/25 Range/Units 16:51 17:52 WBC 9.7 (4.5-10.0) K/mm3 RBC 4.40 L (4.6-6.20) M/mm3 Hgb 13.4 L (14.0-18.0) g/dL Hct 42.5 (42.0-52.0) % MCV 96.6 (80-100) fl MCH 30.5 (26-34) pg MCHC 31.5 L (32-36) g/dl RDW 13.6 (11.5-14.5) % Plt Count 244 (150-375) k/mm3 MPV 10.1 (7.4-10.4) fl Immature Gran % (Auto) 0.3 (0-0.5) % Neut % (Auto) 69.0 (45.5-73.1) % Lymph % (Auto) 20.6 (18.3-44.2) % Burt % (Auto) 7.1 (2.6-8.5) % Eos % (Auto) 2.2 (0-4.4) % Baso % (Auto) 0.8 (0.2-1.2) % Lymph # (Auto) 1.99 (0.9-3.2) K/mm3 Burt # (Auto) 0.7 H (0.1-0.6) K/mm3 Eos # (Auto) 0.2 (0-0.3) K/mm3 Baso # (Auto) 0.1 (0.0-0.1) K/mm3 Abs Immat Gran (auto) 0.03 (0.00-0.031) K/mm3 Absolute Neuts (auto) 6.7 (1.3-6.7) K/mm3 Absolute Nucleated RBC 0.000 (0.0-0.012) K/mm3 Nucleated RBC % 0.0 (0.0-0.2) % Sodium 136 L (137-145) mmol/L Potassium 3.9 (3.4-5.0) mmol/L Chloride 102 (98-107) mmol/L Carbon Dioxide 30 (22-30) mmol/L Anion Gap 4 (4-12) mmol/L BUN 9 D (9-20) mg/dL Creatinine 0.85 (0.7-1.3) mg/dL Estim Creat Clear Calc 81 ml/min Estimated GFR > 60 (59 - ) Glucose 94 (65-110) mg/dL Calcium 9.3 (8.4-10.2) mg/dL Total Bilirubin 0.9 (0.2-1.3) mg/dL AST 22 (17-59) U/L ALT 13 (6-50) U/L Alkaline Phosphatase 122 (38-126) U/L Total Protein 7.0 (6.3-8.2) g/dL Albumin 3.8 (3.5-5.1) g/dL Lipase 28 (23-300) U/L Urine Color Light red H (Yellow) Urine Appearance Turbid H (Clear) Urine pH 5.5 (5.0-9.0) Ur Specific Lane 1.015 (1.001-1.035) Urine Protein 3+ H (Negative) mg/dL Urine Glucose (UA) Negative (Negative) mg/dL Urine Ketones TNP Ur Blood (Man) 3+ H (Negative) Urine Nitrate Negative (Negative) Urine Bilirubin TNP Urine Urobilinogen TNP Leukocyte Esterase Rfl 2+ H (Negative) ЕКАТЕРИНА/UL Urine RBC >100 H (0-2) /hpf Urine WBC 21-50 H (0-3) /hpf Ur Squamous Epith Cells Occasional (Few) /hpf Urine Bacteria None seen /hpf Urine Casts 0-2 <Arabella Sandoval APRN - Last Filed: 12/03/24 21:00> Imaging Data Attestation: I personally reviewed and interpreted this imaging study as follows: <Arabella Sandoval APRN - Last Filed: 12/03/24 21:00> Radiologist's impression: Impressions Abdomen/Pelvis CT 12/03/24 19:28 IMPRESSION: Interval placement of a right-sided double-J stent, in good position, as detailed above. <Arabella Sandoval APRN - Last Filed: 12/03/24 21:00> Critical Care Time Critical Care Time Critical Care Time: No <Coco Gipson PA-C - Last Filed: 12/05/24 10:20> Discharge Plan Discharge Clinical Impression: Post-operative pain, Right flank pain Abdominal pain Qualifiers: Abdominal location: unspecified location Qualified Code(s): R10.9 - Unspecified abdominal pain <Coco Gipson PA-C - Last Filed: 12/05/24 10:20> Patient Disposition: Home <MICHAEL Watkins Last Filed: 12/05/24 10:20> Condition: Stable <MICHAEL Watkins Last Filed: 12/05/24 10:20> Instructions: Antibiotic Form, Abdominal Pain (ED) <MICHAEL Watkins Last Filed: 12/05/24 10:20> Additional Instructions: Please return to the ER with any worsening symptoms. Follow-up with Urology as soon as possible. Take all medications as prescribed, including regularly scheduled medications. Complete your full dose of antibiotics. <MICHAEL Watkins Last Filed: 12/05/24 10:20> Patient Language: Botswanan <MICHAEL Watkins Last Filed: 12/05/24 10:20> Prescriptions: New tamsulosin [Flomax] 0.4 mg capsule 0.4 mg PO DAILY Qty: 7 0RF tamsulosin [Flomax] 0.4 mg capsule 0.4 mg PO DAILY Qty: 10 0RF naloxone [Narcan] 4 mg/actuation spray,non-aerosol 1 spray intranasal Q2-3M PRN (Reason: opioid overdose) Qty: 2 0RF Rx Instructions: spray 1 dose into ONE nostril; alternate nostrils w each dose until help arrives docusate sodium [Colace] 100 mg capsule 100 mg PO BID Qty: 14 0RF hydrocodone-acetaminophen 5-325 mg tablet 1 tablet PO Q6H PRN (Reason: pain) Qty: 6 0RF No Action Vitamin D3 100 mcg (4,000 unit) capsule 4,000 unit PO DAILY spironolactone 25 mg tablet 25 mg PO DAILY Jardiance 10 mg tablet 10 mg PO DAILY docusate sodium [Colace] 100 mg capsule 100 mg PO DAILY PRN (Reason: constipation) Qty: 30 0RF tramadol 50 mg tablet 50 mg PO Q6H PRN tamsulosin [Flomax] 0.4 mg capsule 0.4 mg PO DAILY trazodone 100 mg tablet 100 mg PO QHS PRN tamsulosin 0.4 mg capsule PO Trelegy Ellipta 100-62.5-25 mcg blister with device 1 inh inhalation Q24H 90 Days Qty: 180 2RF Rx Instructions: Rinse and spit after use. cyclobenzaprine 10 mg tablet 10 mg PO QHS Qty: 30 0RF aspirin [Adult Low Dose Aspirin] 81 mg Tablet,Delayed Release (Dr/Ec) 81 mg PO DAILY Eliquis 5 mg tablet 5 mg PO BID Patient Comments: Pt to hold until post op sotalol 80 mg Tablet 80 mg PO Q12HR Qty: 60 0RF sertraline 25 mg tablet 25 mg PO DAILY Qty: 30 0RF Entresto 49-51 mg tablet 1 tablet PO BID multivitamin [Multiple Vitamins] Tablet 1 tablet PO DAILY lysine HCl 1,000 mg tablet 1,000 mg PO DAILY furosemide 40 mg Tablet 40 mg PO DAILY Qty: 30 0RF ferrous sulfate 325 mg (65 mg iron) tablet 325 mg PO DAILY Qty: 60 0RF omeprazole 20 mg capsule,delayed release(DR/EC) 20 mg PO DAILY Qty: 90 3RF albuterol sulfate 2.5 mg /3 mL (0.083 %) solution for nebulization 2.5 mg inhalation Q4-6H PRN (Reason: shortness of breath or wheezing) Qty: 90 3RF albuterol sulfate 90 mcg/actuation HFA aerosol inhaler 2 inh inhalation Q4H PRN (Reason: shortness of breath or wheezing) Qty: 8.5 2RF potassium chloride [Klor-Con M20] 20 mEq tablet,ER particles/crystals See Rx Instructions .ROUTE .COMPLEX Qty: 90 3RF Dose Instruction: TAKE 1 TABLET DAILY Rx Instructions: TAKE 1 TABLET DAILY pregabalin 25 mg capsule 25 mg PO BID Qty: 60 5RF balsalazide 750 mg capsule 2,250 mg PO BID Qty: 540 1RF rosuvastatin 20 mg tablet 20 mg PO HS Qty: 90 0RF pramipexole 1 mg tablet See Rx Instructions .ROUTE .COMPLEX Qty: 180 1RF Dose Instruction: TAKE 1 TO 2 TABLETS 2-3 HOURS PRIOR TO BEDTIME Rx Instructions: TAKE 1 TO 2 TABLETS 2-3 HOURS PRIOR TO BEDTIME roflumilast 500 mcg tablet 500 mcg PO DAILY 90 Days Qty: 90 3RF <Coco Gipson PA-C - Last Filed: 12/05/24 10:20> Follow-up/Referrals: Ander Ko MD [Physician] - (urology ) Lucio Oliveira MD [Primary Care Provider] - <Coco Gipson PA-C - Last Filed: 12/05/24 10:20> Time of Disposition: 20:55 <Coco Gipson PA-C - Last Filed: 12/05/24 10:20> 20:55 <Arabella Sandoval APRN - Last Filed: 12/03/24 21:00>
[2024-12-03 16:58] LABS: Basophils Absolute Auto 0.1 K/mm3 (0.0-0.1); Basophils Percent Auto 0.8 % (0.2-1.2); Eosinophils Absolute Auto 0.2 K/mm3 (0-0.3); Eosinophils Percent Auto 2.2 % (0-4.4); Hematocrit 42.5 % (42.0-52.0); Hemoglobin 13.4 g/dL (14.0-18.0); Immature Granulocyte Absolute 0.03 K/mm3 (0.00-0.031); Immature Granulocyte Percent A 0.3 % (0-0.5); Lymphocytes Absolute Auto 1.99 K/mm3 (0.9-3.2); Lymphocytes Percent Auto 20.6 % (18.3-44.2); Mean Corpuscular HGB Conc 31.5 g/dl (32-36); Mean Corpuscular Hemoglobin 30.5 pg (26-34); Mean Corpuscular Volume 96.6 fl (80-100); Mean Platelet Volume 10.1 fl (7.4-10.4); Monocytes Absolute Auto 0.7 K/mm3 (0.1-0.6); Monocytes Percent Auto 7.1 % (2.6-8.5); Neutrophils Absolute Auto 6.7 K/mm3 (1.3-6.7); Platelet Count Result 244 k/mm3 (150-375); Red Cell Distribution Width 13.6 % (11.5-14.5); White Blood Count 9.7 K/mm3 (4.5-10.0)
[2024-12-03 17:07] LABS: Alanine Aminotransferase 13 U/L (6-50); Albumin Level 3.8 g/dL (3.5-5.1); Alkaline Phosphatase 122 U/L (38-126); Anion Gap 4 mmol/L (4-12); Aspartate Amino Transferase 22 U/L (17-59); Bilirubin,Total 0.9 mg/dL (0.2-1.3); Blood Urea Nitrogen 9 mg/dL (9-20); Calcium 9.3 mg/dL (8.4-10.2); Carbon Dioxide 30 mmol/L (22-30); Chloride 102 mmol/L (98-107); Estimated CRCL calculation 81 ml/min; Estimated Glomerular Filt Rate > 60; Glucose 94 mg/dL (65-110); Lipase 28 U/L (23-300); Potassium 3.9 mmol/L (3.4-5.0); Sodium 136 mmol/L (137-145)
[2024-12-03 17:11] VITALS: BP 201/85; PULSE 62; RESP 14; O2SAT 95
--- NOTE | 2024-12-03 17:12 | ED.MALEGU ---
HPI - Male Genitourinary General Chief complaint: Urogenital-Male Stated complaint: Hematuria/pain-had Lithotripsy done 12/02 Time Seen by Provider: 12/03/24 16:30 Related Data Home Medications ?Medication ?Instructions ?Recorded ?Confirmed ?Last Taken ?Type multivitamin (Multiple Vitamins 1 tablet PO DAILY 05/30/19 11/24/24 02/09/24 History tablet) cholecalciferol (vitamin D3) 100 4,000 unit PO DAILY 04/18/21 11/24/24 02/09/24 History mcg (4,000 unit) capsule (Vitamin D3) lysine HCl 1,000 mg tablet 1,000 mg PO DAILY 10/01/23 11/24/24 02/09/24 History apixaban 5 mg tablet (Eliquis) 5 mg PO BID 12/21/23 11/24/24 02/09/24 History aspirin 81 mg tablet,delayed 81 mg PO DAILY 12/21/23 11/24/24 02/09/24 History release (Adult Low Dose Aspirin) sacubitril 49 mg-valsartan 51 mg 1 tablet PO BID 02/11/24 11/24/24 Unknown History tablet (Entresto) empagliflozin 10 mg tablet 10 mg PO DAILY 03/24/24 11/24/24 Unknown History (Jardiance) spironolactone 25 mg tablet 25 mg PO DAILY 03/24/24 11/24/24 Unknown History tamsulosin 0.4 mg capsule mg PO 10/07/24 11/24/24 Unknown History tamsulosin 0.4 mg capsule (Flomax) 0.4 mg PO DAILY 10/09/24 11/24/24 Unknown History tramadol 50 mg tablet 50 mg PO Q6H PRN 10/09/24 11/24/24 Unknown History trazodone 100 mg tablet 100 mg PO QHS PRN 10/09/24 11/24/24 Unknown History Allergies Allergy/AdvReac Type Severity Reaction Status Date / Time codeine AdvReac Mild CONSTIPATIO Verified 12/03/24 15:36 N methylprednisolone AdvReac Mild Vomiting Verified 12/03/24 15:36 prednisone AdvReac Unknown Vomiting Verified 12/03/24 15:36 [facility] Past Medical History Medical History Gall bladder disease COPE (chronic obstructive pulmonary emphysema) Other ulcerative colitis without complications Elevated glucose QT prolongation Benign hypertension with chronic kidney disease Intentional overdose Chronic lower back pain Diabetic polyneuropathy Shortness of breath Obstructive sleep apnea Peripheral vascular disease Peripheral neuropathy Chronic anticoagulation Ataxia Lumbar spondylosis Atrial fibrillation Diagnosed 01/2022 Atrial flutter Diagnosis 06/2022. Diastolic heart failure BMI greater than 40 Chronic anemia Ulcerative colitis Pulmonary embolism (08/2018) Secondary erythrocytosis Related to COPD and obstructive sleep apnea. Previously received therapeutic phlebotomy. Tubulovillous adenoma of colon Overactive bladder Benign prostatic hyperplasia Hypertension Gastroesophageal reflux disease Chronic obstructive pulmonary disease Compression fx, thoracic spine Low serum vitamin D Anxiety Hyperlipidemia Surgical History Surgical History History of transurethral resection of prostate History of prostatectomy History of cardioversion History of esophageal dilatation History of colonoscopy with polypectomy History of extraction of renal calculus History of cystoscopy History of cardiac catheterization History of right hemicolectomy (06/10/19) Benign tubulovillous adenoma. History of decompression of ulnar nerve Left elbow. History of bilateral cataract extraction History of dental surgery Family History Family History Father Hypertension Malignant neoplasm of prostate Cancer Sibling Diabetes mellitus Family history of cardiovascular disease Hypertension Heart disease Heart problem Mother Family history of rheumatic fever Heart disease Asthma Acute myocardial infarction, Onset Age: 53 Heart problem Sibling Cancer Heart transplant recipient Other Family history of coronary artery disease Family history of lung cancer Social History Social History Social History: Surrogate decision maker: Akua Wilson, spouse. Code status: Do not resuscitate. 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 Spiritual care concerns: No Course Vital Signs Vital signs: Vital Signs Temperature 36.5 C 12/03/24 15:49 Pulse Rate 58 L 12/03/24 15:49 Respiratory Rate 19 12/03/24 15:49 Blood Pressure 149/81 H 12/03/24 15:49 Pulse Oximetry 96 12/03/24 15:49 Oxygen Delivery Room Air 12/03/24 15:49 Temperature 36.5 C 12/03/24 15:49 Pulse Rate 62 12/03/24 21:30 Respiratory Rate 17 12/03/24 21:30 Blood Pressure 201/85 H 12/03/24 17:11 Pulse Oximetry 96 12/03/24 21:30 Oxygen Delivery Room Air 12/03/24 15:49 MDM - Male Genitourinary Lab Data 12/03/24 16:51 12/03/24 16:51 Labs: Lab Results 12/03/24 12/03/24 Range/Units 16:51 17:52 WBC 9.7 (4.5-10.0) K/mm3 RBC 4.40 L (4.6-6.20) M/mm3 Hgb 13.4 L (14.0-18.0) g/dL Hct 42.5 (42.0-52.0) % MCV 96.6 (80-100) fl MCH 30.5 (26-34) pg MCHC 31.5 L (32-36) g/dl RDW 13.6 (11.5-14.5) % Plt Count 244 (150-375) k/mm3 MPV 10.1 (7.4-10.4) fl Immature Gran % (Auto) 0.3 (0-0.5) % Neut % (Auto) 69.0 (45.5-73.1) % Lymph % (Auto) 20.6 (18.3-44.2) % Major % (Auto) 7.1 (2.6-8.5) % Eos % (Auto) 2.2 (0-4.4) % Baso % (Auto) 0.8 (0.2-1.2) % Lymph # (Auto) 1.99 (0.9-3.2) K/mm3 Major # (Auto) 0.7 H (0.1-0.6) K/mm3 Eos # (Auto) 0.2 (0-0.3) K/mm3 Baso # (Auto) 0.1 (0.0-0.1) K/mm3 Abs Immat Gran (auto) 0.03 (0.00-0.031) K/mm3 Absolute Neuts (auto) 6.7 (1.3-6.7) K/mm3 Absolute Nucleated RBC 0.000 (0.0-0.012) K/mm3 Nucleated RBC % 0.0 (0.0-0.2) % Sodium 136 L (137-145) mmol/L Potassium 3.9 (3.4-5.0) mmol/L Chloride 102 (98-107) mmol/L Carbon Dioxide 30 (22-30) mmol/L Anion Gap 4 (4-12) mmol/L BUN 9 D (9-20) mg/dL Creatinine 0.85 (0.7-1.3) mg/dL Estim Creat Clear Calc 81 ml/min Estimated GFR > 60 (59 - ) Glucose 94 (65-110) mg/dL Calcium 9.3 (8.4-10.2) mg/dL Total Bilirubin 0.9 (0.2-1.3) mg/dL AST 22 (17-59) U/L ALT 13 (6-50) U/L Alkaline Phosphatase 122 (38-126) U/L Total Protein 7.0 (6.3-8.2) g/dL Albumin 3.8 (3.5-5.1) g/dL Lipase 28 (23-300) U/L Urine Color Light red H (Yellow) Urine Appearance Turbid H (Clear) Urine pH 5.5 (5.0-9.0) Ur Specific Citra 1.015 (1.001-1.035) Urine Protein 3+ H (Negative) mg/dL Urine Glucose (UA) Negative (Negative) mg/dL Urine Ketones TNP Ur Blood (Man) 3+ H (Negative) Urine Nitrate Negative (Negative) Urine Bilirubin TNP Urine Urobilinogen TNP Leukocyte Esterase Rfl 2+ H (Negative) ЕКАТЕРИНА/UL Urine RBC >100 H (0-2) /hpf Urine WBC 21-50 H (0-3) /hpf Ur Squamous Epith Cells Occasional (Few) /hpf Urine Bacteria None seen /hpf Urine Casts 0-2 Discharge Plan Discharge Clinical Impression: Post-operative pain, Right flank pain, Abdominal pain Patient Disposition: Home Condition: Stable Instructions: Antibiotic Form, Abdominal Pain (ED) Additional Instructions: Please return to the ER with any worsening symptoms. Follow-up with Urology as soon as possible. Take all medications as prescribed, including regularly scheduled medications. Complete your full dose of antibiotics. Patient Language: Irish Prescriptions: New tamsulosin [Flomax] 0.4 mg capsule 0.4 mg PO DAILY Qty: 7 0RF tamsulosin [Flomax] 0.4 mg capsule 0.4 mg PO DAILY Qty: 10 0RF naloxone [Narcan] 4 mg/actuation spray,non-aerosol 1 spray intranasal Q2-3M PRN (Reason: opioid overdose) Qty: 2 0RF Rx Instructions: spray 1 dose into ONE nostril; alternate nostrils w each dose until help arrives docusate sodium [Colace] 100 mg capsule 100 mg PO BID Qty: 14 0RF hydrocodone-acetaminophen 5-325 mg tablet 1 tablet PO Q6H PRN (Reason: pain) Qty: 6 0RF No Action Vitamin D3 100 mcg (4,000 unit) capsule 4,000 unit PO DAILY spironolactone 25 mg tablet 25 mg PO DAILY Jardiance 10 mg tablet 10 mg PO DAILY docusate sodium [Colace] 100 mg capsule 100 mg PO DAILY PRN (Reason: constipation) Qty: 30 0RF tramadol 50 mg tablet 50 mg PO Q6H PRN tamsulosin [Flomax] 0.4 mg capsule 0.4 mg PO DAILY trazodone 100 mg tablet 100 mg PO QHS PRN tamsulosin 0.4 mg capsule PO Trelegy Ellipta 100-62.5-25 mcg blister with device 1 inh inhalation Q24H 90 Days Qty: 180 2RF Rx Instructions: Rinse and spit after use. cyclobenzaprine 10 mg tablet 10 mg PO QHS Qty: 30 0RF aspirin [Adult Low Dose Aspirin] 81 mg Tablet,Delayed Release (Dr/Ec) 81 mg PO DAILY Eliquis 5 mg tablet 5 mg PO BID Patient Comments: Pt to hold until post op sotalol 80 mg Tablet 80 mg PO Q12HR Qty: 60 0RF sertraline 25 mg tablet 25 mg PO DAILY Qty: 30 0RF Entresto 49-51 mg tablet 1 tablet PO BID multivitamin [Multiple Vitamins] Tablet 1 tablet PO DAILY lysine HCl 1,000 mg tablet 1,000 mg PO DAILY furosemide 40 mg Tablet 40 mg PO DAILY Qty: 30 0RF ferrous sulfate 325 mg (65 mg iron) tablet 325 mg PO DAILY Qty: 60 0RF omeprazole 20 mg capsule,delayed release(DR/EC) 20 mg PO DAILY Qty: 90 3RF albuterol sulfate 2.5 mg /3 mL (0.083 %) solution for nebulization 2.5 mg inhalation Q4-6H PRN (Reason: shortness of breath or wheezing) Qty: 90 3RF albuterol sulfate 90 mcg/actuation HFA aerosol inhaler 2 inh inhalation Q4H PRN (Reason: shortness of breath or wheezing) Qty: 8.5 2RF potassium chloride [Klor-Con M20] 20 mEq tablet,ER particles/crystals See Rx Instructions .ROUTE .COMPLEX Qty: 90 3RF Dose Instruction: TAKE 1 TABLET DAILY Rx Instructions: TAKE 1 TABLET DAILY pregabalin 25 mg capsule 25 mg PO BID Qty: 60 5RF balsalazide 750 mg capsule 2,250 mg PO BID Qty: 540 1RF rosuvastatin 20 mg tablet 20 mg PO HS Qty: 90 0RF pramipexole 1 mg tablet See Rx Instructions .ROUTE .COMPLEX Qty: 180 1RF Dose Instruction: TAKE 1 TO 2 TABLETS 2-3 HOURS PRIOR TO BEDTIME Rx Instructions: TAKE 1 TO 2 TABLETS 2-3 HOURS PRIOR TO BEDTIME roflumilast 500 mcg tablet 500 mcg PO DAILY 90 Days Qty: 90 3RF Follow-up/Referrals: Ander Ko MD [Physician] - (urology ) Lucio Oliveira MD [Primary Care Provider] - Time of Disposition: 20:55
[2024-12-03] MEDS: HYDROcodone/acetaminophen (*CRX) 5-325 MG TABLET 1 TAB PO ×2 (17:30→21:09)
--- NOTE | 2024-12-03 17:32 | PC.NURSE ---
ED Physician at bedside asking pt to give urine sample. Urinal given and pt to try at this time to urinate.
[2024-12-03 18:02] LABS: Bacteria Urine None Seen /hpf; Non Pathogenic Casts 0-2; RBC Urine >100 /hpf (0-2); Squamous Epithelial Cell Urine Occasional /hpf (Few); WBC Urine 21-50 /hpf (0-3)
[2024-12-03 18:19] LABS: Add Urine Microscopic? YES; Appearance Urine Turbid (Clear); Blood Urine 3+ (Negative); Glucose Urine UA Negative (Negative); Leukocyte Esterase Ur 2+ LEU/UL (Negative); Nitrate Urine Negative (Negative); Protein Urine 3+ mg/dL (Negative); Specific Grav Ur 1.015 (1.001-1.035); pH Urine 5.5 (5.0-9.0)
[2024-12-03 18:20] LABS: Color Urine Light Red (Yellow)
--- OUTSIDE RECORDS SUMMARY | 2024-12-03 18:25 | XMS_ITS | Encounter Summary ---
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] Calculus of other lower urinary tract location [N21.8] Overactive bladder [N32.81] Procedures [place] CYSTO/URETERO W/LITHOTRIPSY &INDWELL STENT INSRT WY BIOPSY URETHRA WY CYSTO W/URETEROSCOPY W/RMVL/MANJ STONES CYSTOSCOPY, RIGHT URETEROSCOPIC STONE EXTRACTION, LITHOTRIPSY, RIGHT STENT PLACEMENT, BIOPSY OF URETHRAL LESION WITH AWAD CATHETER PLACEMENT Referral ID Status Reason Start Date Expiration Date Visits Re quested Visits Authorized [id number] 1 1 Encounter Details Date Type Department Care Team (Late st Contact Info) Description 12/02/2024 11:05 AM CDT - 12/02/2024 12:35 PM CDT Surgery [facility] Operating Room [address] [place] [address] [place] [address] [place] [address] CYSTOSCOPY, RIGHT RETROGRADE PYELOGRAM, RIGHT URETEROSCOPIC STONE [...] on file Legal Sex Male 2:18 AM [employer] Gender Identity Not on file Sexual Orientation [...] Care Everywhere. * General Anesthesia (Discharge Care) ([place]) * Cystoscopy (Discharge Care) ([place]) * Lithotripsy (Discharge Care) ([place]) * Ciprofloxacin (By mouth) ([place]) * Tramadol (By mouth) ([place]) documented in this encounter Medications at Time [...] on right side Surgeon: Sherice Landa MD Specimen Processor: None Anesthesia: General Indications: This is a [...] - TELEPHONE ONLY, NO PHYSICAL EXAM - [facility] PAT Date: 11/26/24 PAT RN completed assessment [...] -- -- -- Jean Claude Ross MD [id number] (Trelegy Ellipta) 100-62.5-25 mcg inhaler -- -- [...] mg tablet -- 01/15/24 -- Xiomara Fisher [employer] Take 1 tablet (80 mg total) by [...] that you and your doctor have chosen [facility] for your surgery. We hope that the [...] Stop taking 7 days prior to surgery [id number] (Trelegy Ellipta) 100-62.5-25 mcg inhaler Take as [...] Take as prescribed Use no make-up, nail japanese, lotions, oils or powders on your skin. [...] down the hoover until you see the [employer]coffee shop, there will be elevators to the [...] AM CDT) 12/02/2024 9:46 AM CDT Narrative [facility] - 12/02/2024 3:40 PM CDT Vent Rate: 60 bpm RR Interval: 994 msec [place] Interval: 136 msec QRS Duration: 146 msec QT Interval: 460 msec QTC Interval: 460 msec P-R-T [place]: -42 - -48 - 18 degrees IMPRESSION: [...] Rinku Coates MD ECG ORDERABLES Final Result [facility] * Potassium, whole blood (12/02/2024 9:35 AM [...] BLOOD ORDERABLES F inal Result VONDA WILLIAMSON ([place]) 1 [facility] Department [place] [address] documented in this encounter Visit [...] 12/02/2024 documented in this encounter Care Teams Classroom Paraprofessional Relationship Specialty Start Date End Date Lucio Oliveira MD PCP - General 07/02/19 Lucio Oliveira MD Family Medicine 07/02/19 documented as of this encounter
--- OUTSIDE RECORDS SUMMARY | 2024-12-03 18:25 | XMS_ITS | Encounter Summary ---
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] Calculus of other lower urinary tract location [N21.8] Overactive bladder [N32.81] Procedures FL CYSTO/URETERO W/LITHOTRIPSY &INDWELL STENT INSRT FL BIOPSY URETHRA FL CYSTO W/URETEROSCOPY W/RMVL/MANJ STONES CYSTOSCOPY, RIGHT URETEROSCOPIC STONE EXTRACTION, LITHOTRIPSY, RIGHT STENT PLACEMENT, BIOPSY OF URETHRAL LESION WITH AWAD CATHETER PLACEMENT Referral ID Status Reason Start Date Expiration Date Visits Re quested Visits Authorized [id number] 1 1 Encounter Details Date Type Department Care Team (Late st Contact Info) Description 12/02/2024 11:18 AM CDT Anesthesia Event [facility] Operating Room [address] [place] [address] Rick Platt MD [address] [place] [address] Rinku Coates MD [address] [facility] [place] [address] Anesthesia Record Procedure Summary Procedure Name Responsible [...] on file 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 Gender Identity Not on file Sexual Orientation [...] Procedure Summary Date: 12/02/24 Room / Location: [facility] OR [facility] OPERATING ROOM Anesthesia Start: 1118 Anesthesia Stop: [...] protection Difficult airway: no Staff: Placed by: GLASS VIAL FILLER: Toby Juarez CRNA Emergent airway documentation: Risks [...] kidney disease) stage 3, GFR 30-59 ml/min ([facility]) 09/14/2022 Persistent atrial fibrillation ([facility]) 07/19/2022 Atrial flutter ([facility]) 07/19/2022 Other thrombophilia 07/19/2022 Chronic heart failure with preserved ejection fraction ([facility]) 08/09/2021 Benign hypertension with CKD (chronic kidney disease), stage II 08/09/2021 Coronary artery disease involving nome coronary artery of nome heart without angina pectoris 08/09/2021 Cough productive of clear sputum 11/11/2019 Stenosis of right carotid artery 07/02/2019 Acute meniscal tear of left knee 06/03/2019 Hoarseness 04/04/2019 Morbid obesity with body mass index (BMI) of 40.0 to 44.9 in adult ([facility]) 10/19/2017 Muscle spasm of left lower extremity [...] Week -- -- Jean Claude Ross MD [id number] (Trelegy Ellipta) 100-62.5-25 mcg inhaler Past Week [...] Medication protocol when under care of a GLASS VIAL FILLER Planned anesthesia: General Team communication plan: LMA and oral ET tube Induction: Induction: intravenous. Postoperative Plan: Patient's planned disposition post procedure is Outpatient. Informed Consent: Discussed plan with GLASS VIAL FILLER and attending. Anesthesia plan and risks discussed [...] Procedure Name Priority Date/Time Associated Diagnosis Comments FL AN ELECTIVE ENDOTRACHEAL AIRWAY Routine 12/02/2024 11:31 AM CDT documented in this encounter Results * FL AN ELECTIVE ENDOTRACHEAL AIRWAY (12/02/2024 11:31 AM CDT) Narrative Toby Juarez CRNA - 12/02/2024 11:31 AM CDT Toby Juarez CRNA 12/02/2024 11:31 AM Airway Patient location: OR Urgency: elective Date/time: 12/02/2024 11:26 AM Indications for airway management: anesthesia and airway protection Difficult airway: no Staff: Placed by: GLASS VIAL FILLER: Toby Juarez CRNA Emergent airway documentation: Risks [...] mg documented in this encounter Care Teams Heating And Cooling Technician Relationship Specialty Start Date End Date Lucio Oliveira MD PCP - General 07/02/19 Lucio Oliveira MD Family Medicine 07/02/19 documented as of this encounter
--- OUTSIDE RECORDS SUMMARY | 2024-12-03 18:25 | XMS_ITS | Clinical Summary ---
Author Organization [address] Address [address] [place] [address] Care Team Providers Care Surveyor'S Assistant Name Role Phone Lucio Oliveira MD Primary Care Provider [phone] Luico Oliveira MD Unavailable [phone] Allergies Active Allergy Reactions Criticality Noted Date [...] II 08/09/2021 Coronary artery disease invo lving jena coronary artery of jena heart without angina pectoris 08/09/2021 Cough productive [...] 10/19/2017 Assessment & Plan (06/30/2019 1:54 PM PETROGRAPHY TEACHER): He will try to get 30 minutes [...] elevator. Assessment & Plan (06/07/2018 1:52 PM PETROGRAPHY TEACHER): Obesity is improving with lifestyle modifications. Discussed [...] hours. Assessment & Plan (06/30/2019 1:53 PM PETROGRAPHY TEACHER): He will wear his VPAP auto nightly [...] titration. Assessment & Plan (06/07/2018 1:52 PM PETROGRAPHY TEACHER): He will wear his bilevel machine nightly [...] bedtime. Assessment & Plan (06/07/2018 1:52 PM PETROGRAPHY TEACHER): He will try to practice good sleep [...] bedtime. Assessment & Plan (06/30/2019 1:54 PM PETROGRAPHY TEACHER): He will take clonazepam 2 mg every [...] Description 12/02/2024 11:18 AM CDT Anesthesia Event [facility] Operating Room [address] [place] [address] Rick Platt MD Reynolds, Rinku Reinoso MD 12/02/2024 11:05 AM CDT - 12/02/2024 12:35 PM CDT Surgery [facility] [address] [place] [address] Sherice Santos MD CYSTOSCOPY, RIGHT RETROGRADE PYELOGRAM, RIGHT URETEROSCOPIC STONE EXTRACTION, RIGHT LASER LITHOTRIPSY, RIGHT URETERAL STENT PLACEMENT, BIOPSY OF URETHRAL LESION WITH Fulgeration 12/02/2024 9:10 AM CDT - 12/02/2024 1:57 PM CDT Hospital Encounter [facility] Operating [facility] [address] [place] [address] Sherice Santos MD Urethral tumor; Calculus of other lower urinary tract location; Overactive bladder Discharge Disposition: Discharge to home or self care 11/17/2024 Telephone [facility] Cardiology [address] [place] [address] Heber Alvarado MD Pre-op Urology 09/18/2024 Orders Only [facility] Cardiology [address] [place] [phone] Nav Morejon MD 09/15/2024 Telephone [facility] Cardiology [address] [place] [address] Heber Alvarado MD samples 09/08/2024 Orders Only [facility] Health Information Management [address] [place] [address] Nav Morejon MD from Last 3 Months [...] on file Legal Sex Male 2:18 AM PETROGRAPHY TEACHER Gender Identity Not on file Sexual Orientation [...] 12/0 03/2016 Medical Devices Implanted Type Area Superintendent Seed Mill Device Identifier Shelf Expiration Date Model / Serial / Lot [employer] Maximo Stent Ureteral Set Double Pigtail Tapered Tip Contour [id number] Hydroplus Coated [id number] - [id number] Implanted:Qty: 1 on 12/02/2024 by Sherice Santos MD at [facility] Right: Ureter [employer] Maximo 06/18/2027 [id number] / / [id number] Procedures Procedure Name Priority Date/Time Associated Diagnosis Comments NM AN ELECTIVE ENDOTRACHEAL AIRWAY Routine 12/02/2024 11:31 AM CDT ECG 12-LEAD STAT 12/02/2024 9:46 AM CDT POTASSIUM, WHOLE BLOOD STAT 12/02/2024 9:35 AM CDT CARDIOLOGY DOCUMENT SCAN Routine 09/08/2024 2:13 PM PETROGRAPHY TEACHER CARDIOLOGY DOCUMENT SCAN 09/08/2024 BASIC METABOLIC PANEL Routine 06/14/2023 1:49 PM PETROGRAPHY TEACHER Chronic heart failure with preserved ejection fraction (HCC) Benign hypertension with CKD (chronic kidney disease), stage II H/O cardiomyopathy POCT LIPID PANEL Routine 11/03/2022 1:10 PM CDT Coronary artery disease involving jena coronary artery of jena heart without angina pectoris Mixed hyperlipidemia from Last 3 Months or Most Recently Relevant to Health Maintenance Results * NM AN ELECTIVE ENDOTRACHEAL AIRWAY (12/02/2024 11:31 AM CDT) Narrative Toby Juarez CRNA - 12/02/2024 11:31 AM CDT Toby Juarez CRNA 12/02/2024 11:31 AM Airway Patient location: OR Urgency: elective Date/time: 12/02/2024 11:26 AM Indications for airway management: anesthesia and airway protection Difficult airway: no Staff: Placed by: BRIDGE GANG WORKER: Toby Juarez CRNA Emergent airway documentation: Risks [...] AM CDT) 12/02/2024 9:46 AM CDT Narrative [facility] - 12/02/2024 3:40 PM CDT Vent Rate: 60 bpm RR Interval: 994 msec NM Interval: 136 msec QRS Duration: 146 msec QT Interval: 460 msec QTC Interval: 460 msec P-R-T [place]: -42 - -48 - 18 degrees IMPRESSION: [...] ECG ORDERABLES Final Result Performing Organization Address City/[facility]/ZIP Co de Phone Number [facility] * Potassium, whole blood (12/02/2024 9:35 AM CDT) Pathologist [facility] Potassium, bld 3.6 3.3 - 4.9 mmol/L Comment: Interpretive Data This method is not able to assess for hemolysis, which may falsely increase potassium concentrations. If further testing is needed to evaluate this result, consider in-laboratory plasma potassium. Current Interpretive Data was last revised on 2022. Blood 12/02/2024 9:35 AM CDT 12/02/2024 9:48 AM CDT Result [facility] Rinku Coates MD LAB BLOOD ORDERABLES F inal Result Performing Organization Address [facility] Co de Phone Number VONDA WILLIAMSON ([place]) 1 [facility] Department [place] [address] * Cardiology Document Scan (09/08/2024 2:13 PM PETROGRAPHY TEACHER) Anatomical Region Laterality Modality Other Nav Morejon MD CV CARDIAC SERVICES PROCEDURES F inal Result * Cardiology Document Scan (09/08/2024) Anatomical Region Laterality Modality Other Nav Morejon MD CV CARDIAC SERVICES PROCEDURES F inal Result * (ABNORMAL) Basic metabolic panel (06/14/2023 1:49 PM PETROGRAPHY TEACHER) Pathologist [facility] Glucose 79 70 - 99 mg/dL [facility] [...] [facility] - 01 Blood 06/14/2023 1:49 PM PETROGRAPHY TEACHER 06/14/2023 Narrative [facility] - 06/15/2023 9:11 AM PETROGRAPHY TEACHER Performed at: 01 - [address] [id number] Frog Shaker: Uday Morocho PhD, Phone: [phone] Specimen Comment: A courtesy copy of this report has been sent to [facility], Specimen Comment: [phone] Rey Pal MD LAB BLOOD ORDERABLES Fin al Result [facility] - 01 * POCT lipid panel (11/03/2022 1:10 PM CDT) Pathologist [facility] Cholesterol, POC 128 mg/dL Comment:GLU = 134 [...] to Health Maintenance Insurance AETNA MEDICARE MEDICARE [facility] MEDICARE Care Teams Surveyor'S Assistant Relationship Specialty Start Date End Date Lucio Oliveira MD PCP - General 07/02/19 Lucio Oliveira MD Family Medicine 07/02/19
--- OUTSIDE RECORDS SUMMARY | 2024-12-03 18:25 | XMS_ITS | Clinical Summary ---
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 [address] PCP - General Family Practice 10/21/18
--- OUTSIDE RECORDS SUMMARY | 2024-12-03 18:25 | XMS_ITS | Encounter Summary ---
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 [N21.8] Overactive bladder [N32.81] Procedures TN CYSTO/URETERO W/LITHOTRIPSY &INDWELL STENT INSRT TN BIOPSY URETHRA TN CYSTO W/URETEROSCOPY W/RMVL/MANJ STONES CYSTOSCOPY, RIGHT URETEROSCOPIC STONE EXTRACTION, LITHOTRIPSY, RIGHT STENT PLACEMENT, BIOPSY OF URETHRAL LESION WITH AWAD CATHETER PLACEMENT Referral ID Status Reason Start Date Expiration Date Visits Re quested Visits Authorized [id number] 1 1 Encounter Details Date Type Department Care Team (Latest Contact Info) Description 12/02/2024 9:10 AM CDT - 12/02/2024 1:57 PM CDT Hospital Encounter [facility] Operating Room [address] [place] [address] [place] [address] [place] [address] Urethral tumor; Calculus of other lower urinary [...] on file 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 * General Anesthesia (Discharge Care) ([place]ian) * Cystoscopy (Discharge Care) ([place]) * Lithotripsy (Discharge Care) ([place]) * Ciprofloxacin (By mouth) ([place]ian) * Tramadol (By mouth) ([place]erratian) documented in this encounter Medications at Time [...] on right side Surgeon: Sherice Landa MD Cook Mayonnaise: None Anesthesia: General Indications: This is a [...] - TELEPHONE ONLY, NO PHYSICAL EXAM - [facility] PAT Date: 11/26/24 PAT RN completed [...] -- -- -- Jean Claude Ross MD [id number] (Trelegy Ellipta) 100-62.5-25 mcg inhaler -- -- [...] that you and your doctor have chosen [facility] for your surgery. We hope that the [...] Stop taking 7 days prior to surgery xeowgpwqafo-[id number] (Trelegy Ellipta) 100-62.5-25 mcg inhaler Take as [...] AM CDT) 12/02/2024 9:46 AM CDT Narrative [facility] - 12/02/2024 3:40 PM CDT Vent Rate: 60 bpm RR Interval: 994 msec TN Interval: 136 msec QRS Duration: 146 msec QT Interval: 460 msec QTC Interval: 460 msec P-R-T [place]: -42 - -48 - 18 degrees IMPRESSION: [...] ECG ORDERABLES Final Result Performing Organization Address City/[facility]/ZIP Co de Phone Number [facility] CrossCurrent [facility] * Potassium, whole blood (12/02/2024 9:35 AM [...] BLOOD ORDERABLES F inal Result VONDA WILLIAMSON ([place]) 1 [facility] Department [place] [address] documented in this encounter Visit Diagnoses Diagnosis [...] 12/02/2024 documented in this encounter Care Teams Hydrotechnical Specialist Relationship Specialty Start Date End Date Lucio Oliveira MD PCP - General 07/02/19 Lucio Oliveira MD Family Medicine 07/02/19 documented as of this encounter
--- OUTSIDE RECORDS SUMMARY | 2024-12-03 18:26 | XMS_ITS | Encounter Summary ---
Author Organization [facility] Healthcare Address [address] [place] [address] Care Team Providers Care Comptroller Name Role Phone Lucio Oliveira MD Primary Care Provider [phone] Lucio Oliveira MD Unavailable [phone] Encounter Details Date Type Department Care Team (Late st Contact Info) Description 12/21/2023 Orders Only [facility] Health Information Management [address] [place] [address] Scanning, Provider Social History Tobacco Use Types Packs/Day Years Used Date Smoking Tobacco: Never Alcohol Use Standard Drinks/Week Comments No 0 (1 standard drink = 0.6 oz pur e alcohol) Sex and Gender Information Value Date Recorded Sex Assigned at Not on file 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
--- OUTSIDE RECORDS SUMMARY | 2024-12-03 18:26 | XMS_ITS | Continuity of Care Document ---
Author Organization [facility] Address [address] [place] [address] Phone Care Team Providers Care Sanding Machine Operator Name Role Phone Rebecca Rowland Unavailable Unavailable Procedures Procedure Date Eye Exam, New Patient Refraction Advance Directives Directive Yes / No Effective Date File Name No Information Encounters Encounter Description Practice Location Reason(s) For Visit Diagnoses Date Provider Providers Copied on Encounter [facility], [address], [place], [place], [id number], [place] tel:[phone] [facility] No Information 0-201 0 Janett Fernandez. [address] , [address], [place], [address], [place]. tel:[phone] Family History Family Member Type Diagnosis Age At Onset No Information Payers Payer name Insurance type Covered libertarian ID Authoryamilaa shereeneeraj(s) [employer] Vision Plan [id number] Social History Type Description Quantity Date Captured [...]
--- OUTSIDE RECORDS SUMMARY | 2024-12-03 18:26 | XMS_ITS | Encounter Summary ---
Author Organization [facility] Address [address] [place] [address] Care Team Providers Care Knot Bumper Name Role Phone Lucio Oliveira MD Primary Care Provider [phone] Encounter Details Date Type Department Care Team (Latest Contact Info) Description 12/18/2008 Outpatient Historical [facility] BRUNILDA Palacios, MD Pool NO ADDRESS ON FILE Other Degenerative Diseases of the Basal Ganglia Social History Tobacco Use Types Packs/Day Years Used Date Smoking Tobacco: Never Alcohol Use Standard Drinks/Week Comments No 0 (1 standard drink = 0.6 oz pur e alcohol) Sex and Gender Information Value Date Recorded Sex Assigned at Not on file 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 Gender Identity Not on file Sexual Orientation [...] TOTAL PROTEIN 6.9 6.3 - 8.6 g/dL [facility] POTASSIUM 4.6 3.5 - 4.9 mmol/L [facility] GLUCOSE 74 65 - 99 mg/dL [facility] AST 29 12 - 38 U/L [facility] BUN 15 6 - 20 mg/dL [facility] CALCIUM 9.6 8.6 - 10.2 mg/dL [facility] CHLORIDE 101 96 - 108 mmol/L [facility] ALBUMIN 4.2 3.4 - 4.8 g/dL [facility] CREATININE 1.12 0.67 - 1.17 mg/dL [facility] SODIUM 138 135 - 145 mmol/L [facility] ALT 31 0 - 41 U/L [facility] ALKALINE PHOSPHATASE 75 40 - 129 U/L [facility] BILIRUBIN TOTAL 0.5 0.2 - 1.0 mg/dL [facility] CO2 27 22 - 30 mmol/L [facility] GFR, >60 >=60 mL/min/1.7 sq meter [facility] GFR >60 >=60 mL/min/1.7 sq meter [facility] Comment: Modification of Diet in Renal Disease (MDRD) study formula. Estimated GFR rate interpretative information for both Americans and non- Americans is available on the [facility] Intranet at: [email or web address] Select: Lab Policies and Procedures Select: Reference Ranges - GFR 12/18/2008 1:49 PM CDT 12/18/2008 3:00 PM CDT us Pool Palacios MD CHEMISTRY ORDERABLES Edited INTERFACE SYSTEM Refer to clinic/hospital department [facility] CLIA# [id number] [address] [place] [address] * (ABNORMAL) CBC WITH DIFFERENTIAL (12/18/2008 1:49 PM CDT) MCV 100.8(H) 82.0 - 99.0 fL [facility] PLATELETS 245 140 - 350 K/uL [facility] HEMOGLOBIN 17.1(H) 13.6 - 16.5 g/dL [facility] RDW 13.8 11.5 - 14.5 % [facility] WBC 6.5 4.0 - 9.8 K/uL [facility] MCH 34.5(H) 27.2 - 32.6 pg [facility] MPV 11.3 9.3 - 12.4 fL [facility] HEMATOCRIT 50.0(H) 40.0 - 48.0 % [facility] RDW-STDEV 50.9(H) 37.1 - 48.7 fL [facility] RBC 4.96 4.50 - 5.40 M/uL [facility] MCHC 34.2 31.5 - 35.5 % [facility] NEUTROPHILS 60 45 - 70 % [facility] NEUTROPHIL ABSOLUTE 3.88 1.90 - 7.00 K/uL [facility] EOSINOPHILS 3 0 - 7 % [facility] EOSINOPHIL ABSOLUTE 0.19 0.00 - 0.70 K/uL [facility] LYMPHOCYTES 27 16 - 45 % [facility] LYMPHOCYTE ABSOLUTE 1.76 0.70 - 4.50 K/uL [facility] BASOPHILS 1 0 - 2 % [facility] BASOPHILS ABSOLUTE 0.06 0.00 - 0.20 K/uL [facility] MONOCYTES 9 3 - 13 % [facility] MONOCYTE ABSOLUTE 0.59 0.10 - 1.30 K/uL [facility] 12/18/2008 1:49 PM CDT 12/18/2008 3:01 PM CDT us Pool Palacios MD HEMATOLOGY ORDERABLES Edited INTERFACE SYSTEM Refer to clinic/hospital department [facility] CLIA# [id number] [address] [place] [place] [address] documented in this encounter Visit Diagnoses Diagnosis Other degenerative diseases of the basal ganglia documented in this encounter Care Teams Knot Bumper Relationship Specialty Start Date End Date Lucio Oliveira MD [address] [place] [address] PCP - General Family Practice 10/21/18 documented as of this encounter
--- OUTSIDE RECORDS SUMMARY | 2024-12-03 18:26 | XMS_ITS | CONTINUITY OF CARE DOCUMENT ---
Author Name lebron diana Address Unknown Organization [facility] Address [address] [place] [address] Phone [phone] Care Team Providers Care Qa Developer Name Role Phone Kaitlin GALVAN, Marco Unavailable SCHWMONA DIESEL PILE DRIVER OPERATOR, HAIR Unavailable SCHWIND DIESEL PILE DRIVER OPERATOR, HAIR Unavailable [phone] PROBLEMS Condition Status Date Provider Notes [...] In-person encounter Office Visit Marco Madrigal MD [facility] - In-person encounter Office Visit Scotty Shultz MD [facility] - In-person encounter Office Visit Scotty Shultz MD [facility] PolycythemiaHypogonadism, low testosterone - In-person encounter Office Visit Marco Madrigal MD [facility] - In-person encounter Office Visit Marco Madrigal MD [facility] Other symptoms involving cardiovascular systemSLEEP APNEACOPDHTN [...] kg/m2 Meme Turner weight E&M 298 [lb_av] Alesk Vanessa jerryneeraj height E&M 69 [in_i] Aleks [...] Payer name Policy type / Coverage type Marydel red libertarian ID AETNA MEDICARE Commercial insurance [employer] M [id number] ADVANCE DIRECTIVES Name Date DISCUSSED - NO [...] half. Orders: 9 9244 MOD C omplex (CPT-38765) Scotty Shultz MD Hem/Onc New Patient :The [...] blood work. Orders: E rythropoietin (EPO), Serum (547591) J AK2 V617F Rfx/Exon 12 (220147) C BC (INCLUDES DIFF/PLT) (6399) U RINALYSIS, COMPLETE (5463) 9 9244 MOD C omplex (CPT-54226) Scotty Shultz MD Cardiology:Refer to Dr. Shultz [...] Name Provider Procedure Notes S tatus SNOMED-CT: 48340918 Physical Exam, Performed: Pulse Exam of Foot Marco Madrigal MD completed EKG Marco Madrigal MD completed SNOMED-CT: 454003697 644675 Current Medications Documented Marco Madrigal MD completed SNOMED-CT: 540319347 449981 Current Medications Documented Scotty Shultz MD completed SNOMED-CT: 934478570 149649 Current Medications Documented Scotty Shultz MD completed SNOMED-CT: 29667692 Physical Exam, Performed: Pulse Exam of Foot Marco Madrigal MD completed SNOMED-CT: 573551486 174030 Current Medications Documented Marco Madrigal MD completed Stress EKG Abi Reed MD completed Regadenoson, 4 units Marco Madrigal MD completed Cardiolite, 2 units Marco Madrigal MD completed SPECT Images Abi Reed MD complet ed SNOMED-CT: 14437815 Physical Exam, Performed: Pulse Exam of Foot Marco Madrigal MD completed SNOMED-CT: 370865125 666414 Current Medications Documented Marco Madrigal MD completed
--- OUTSIDE RECORDS SUMMARY | 2024-12-03 18:26 | XMS_ITS | Referral Summary ---
Author Organization [address] Address [address] [place] [address] Care Team Providers Care Sewer Pipe Sorter Name Role Phone Lucio Oliveira MD Primary Care Provider Lucio Oliveira MD Unavailable [phone] Encounters Date Type Department Care Team Description 12/02/2024 11:05 AM CDT - 12/02/2024 12:35 PM CDT Surgery [facility] Operating Room [address] [place] [address] Sherice Santos MD CYSTOSCOPY, RIGHT RETROGRADE PYELOGRAM, RIGHT URETEROSCOPIC STONE EXTRACTION, RIGHT LASER LITHOTRIPSY, RIGHT URETERAL STENT PLACEMENT, BIOPSY OF URETHRAL LESION WITH Fulgeration 12/02/2024 11:18 AM CDT Anesthesia Event [facility] Operating Room [address] [place] [address] Rick Platt MD Reynolds, Ethan Emerson, MD 12/02/2024 9:10 AM CDT - 12/02/2024 1:57 PM CDT Hospital Encounter [facility] Operating Room [address] [place] [address] Sherice Santos MD Urethral tumor; Calculus of other lower urinary tract location; Overactive bladder Discharge Disposition: Discharge to home or self care 11/17/2024 Telephone [facility] Cardiology [address] [place] [phone] Heber Alvarado MD Pre-op Urology 09/18/2024 Orders Only [facility] Cardiology [address] [place] [phone] Nav Morejon MD 09/15/2024 Telephone [facility] Cardiology [address] [place] [id number] Heber Alvarado MD samples 09/08/2024 Orders Only [facility] Health Information Management [address] [place] [address] Nav Morejon MD from Last 3 Months [...] II 08/09/2021 Coronary artery disease invo lving [place] coronary artery of [place] heart without angina pectoris 08/09/2021 Cough productive [...] 10/19/2017 Assessment & Plan (06/30/2019 1:54 PM HOSPITAL MEDICINE DIRECTOR): He will try to get 30 minutes [...] elevator. Assessment & Plan (06/07/2018 1:52 PM HOSPITAL MEDICINE DIRECTOR): Obesity is improving with lifestyle modifications. Discussed [...] hours. Assessment & Plan (06/30/2019 1:53 PM HOSPITAL MEDICINE DIRECTOR): He will wear his VPAP auto nightly [...] set at 22/14 cm water pressure to [facility] for repair replace. Machine needs to [...] titration. Assessment & Plan (06/07/2018 1:52 PM HOSPITAL MEDICINE DIRECTOR): He will wear his bilevel machine nightly [...] bedtime. Assessment & Plan (06/07/2018 1:52 PM HOSPITAL MEDICINE DIRECTOR): He will try to practice good sleep [...] bedtime. 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 Gender Identity Not on file Sexual [...] on file Medical Devices Implanted Type Area Route Sales Manager Device Identifier Shelf Expiration Date Model / Serial / Lot [employer] Maximo Stent Ureteral Set Double Pigtail Tapered Tip Contour [id number] Hydroplus Coated [id number] - [id number] Implanted:Qty: 1 on 12/02/2024 by Sherice Santos MD at [facility] Right: Ureter [employer] Maximo 06/18/2027 [id number] / / [id number] Procedures Procedure Name Priority Date/Time Associated Diagnosis Comments AR AN ELECTIVE ENDOTRACHEAL AIRWAY Routine 12/02/2024 11:31 AM CDT ECG 12-LEAD STAT 12/02/2024 9:46 AM CDT POTASSIUM, WHOLE BLOOD STAT 12/02/2024 9:35 AM CDT CARDIOLOGY DOCUMENT SCAN Routine 09/08/2024 2:13 PM HOSPITAL MEDICINE DIRECTOR CARDIOLOGY DOCUMENT SCAN 09/08/2024 BASIC METABOLIC PANEL Routine 06/14/2023 1:49 PM HOSPITAL MEDICINE DIRECTOR Chronic heart failure with preserved ejection fraction (HCC) Benign hypertension with CKD (chronic kidney disease), stage II H/O cardiomyopathy POCT LIPID PANEL Routine 11/03/2022 1:10 PM CDT Coronary artery disease involving [place] coronary artery of [place] heart without angina pectoris Mixed hyperlipidemia from Last 3 Months or Most Recently Relevant to Health Maintenance Results * AR AN ELECTIVE ENDOTRACHEAL AIRWAY (12/02/2024 11:31 AM [...] AM CDT) 12/02/2024 9:46 AM CDT Narrative [facility] - 12/02/2024 3:40 PM CDT Vent Rate: 60 bpm RR Interval: 994 msec AR Interval: 136 msec QRS Duration: 146 msec QT Interval: 460 msec QTC Interval: 460 msec P-R-T [place]: -42 - -48 - 18 degrees IMPRESSION: [...] ECG ORDERABLES Final Result Performing Organization Address City/[facility] Co de Phone Number [facility] * Potassium, whole blood (12/02/2024 9:35 [...] ORDERABLES F inal Result Performing Organization Address City/[facility] Co de Phone Number VONDA WILL[facility] ([place]) 1 [facility] [place] [address] * Cardiology Document Scan (09/08/2024 2:13 PM HOSPITAL MEDICINE DIRECTOR) Anatomical Region Laterality Modality Other Nav Morejon MD CV CARDIAC SERVICES PROCEDURES F inal Result * Cardiology Document Scan (09/08/2024) Anatomical Region Laterality Modality Other Nav Morejon MD CV CARDIAC SERVICES PROCEDURES F inal Result * (ABNORMAL) Basic metabolic panel (06/14/2023 1:49 PM HOSPITAL MEDICINE DIRECTOR) Glucose 79 70 - 99 mg/dL [facility] [...] [facility] - 01 Blood 06/14/2023 1:49 PM HOSPITAL MEDICINE DIRECTOR 06/14/2023 Narrative [facility] - 06/15/2023 9:11 AM HOSPITAL MEDICINE DIRECTOR Performed at: 01 - [facility] [place] [id number] Appraiser Art: Uday Morocho PhD, Phone: [phone] Specimen Comment: A courtesy copy of this report has been sent to [facility], Specimen Comment: [phone] Rey Pal MD LAB BLOOD ORDERABLES Fin al Result [facility] - 01 * POCT lipid panel (11/03/2022 1:10 PM CDT) [facility] Cholesterol, POC 128 mg/dL Comment:GLU = 134 [...] Insurance [employer] MEDICARE MEDICARE MEDICARE Care Teams Sewer Pipe Sorter Relationship Specialty Start Date End Date Lucio Oliveira MD PCP - General 07/02/19 Lucio Oliveira MD Family Medicine 07/02/19
--- OUTSIDE RECORDS SUMMARY | 2024-12-03 18:26 | XMS_ITS | Encounter Summary ---
Author Organization [facility] Address [address] [place] [address] Care Team Providers Care Spray Dyer Name Role Phone Lucio Oliveira MD Primary Care Provider [phone] Lucio Oliveira MD Unavailable [phone] Encounter Details Date Type Department Care Team (Late st Contact Info) Description 09/08/2024 Orders Only [facility] Health Information Management [address] [place] [address] Nav Morejon MD [address] [address] Social History Tobacco Use Types Packs/Day Years Used Date Smoking Tobacco: Never Alcohol Use Standard Drinks/Week Comments No 0 (1 standard drink = 0.6 oz pur e alcohol) Sex and Gender Information Value Date Recorded Sex Assigned at Not on file Legal Sex Male 2:18 AM 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
--- OUTSIDE RECORDS SUMMARY | 2024-12-03 18:26 | XMS_ITS | Clinical Summary ---
Author Organization [facility] Address [address] [place] [address] Phone Care Team Providers Care Director Of Materials Management Name Role Phone Lucio Oliveira MD Primary Care Provider [phone] Allergies Active Allergy Reactions Criticality Noted Date [...] and Highest Risk Completed 08/07/2017, 07/07/2016 Insurance AET[employer] Care Teams Director Of Materials Management Relationship Specialty Start Date End Date Lucio Oliveira MD [address] [place] [address] PCP - General Family Medicine 10/16/18
[2024-12-03] MEDS: KETOROLAC 15 MG/ML VIAL (*BKC) IV PUSH (18:33)
[2024-12-03] MEDS: CIPROFLOXACIN 250 MG TABLET PO (21:09)
[2024-12-03] MEDS: TAMSULOSIN HCL 0.4 MG CAPSULE PO (21:09)
[2024-12-03 21:30] VITALS: PULSE 62; RESP 17; O2SAT 96
== END 2024-12-03 21:59 | disposition home or self-care (01) ==
PROVIDERS: Physician Assistant; Emergency Provider Registered Nurse; PCP Family Medicine
DX: G89.18 Other acute postprocedural pain (principal); R10.32 Left lower quadrant pain; R10.12 Left upper quadrant pain; R10.31 Right lower quadrant pain; J43.9 Emphysema, unspecified; I13.0 Hypertensive heart and chronic kidney disease with heart failure and stage 1 through stage 4 chronic kidney disease, or unspecified chronic kidney disease; E11.22 Type 2 diabetes mellitus with diabetic chronic kidney disease; N18.9 Chronic kidney disease, unspecified; I50.30 Unspecified diastolic (congestive) heart failure; I48.91 Unspecified atrial fibrillation; I48.92 Unspecified atrial flutter; E11.42 Type 2 diabetes mellitus with diabetic polyneuropathy; E78.5 Hyperlipidemia, unspecified; D64.9 Anemia, unspecified; D75.1 Secondary polycythemia; N32.81 Overactive bladder; N40.0 Benign prostatic hyperplasia without lower urinary tract symptoms; G47.33 Obstructive sleep apnea (adult) (pediatric); K21.9 Gastro-esophageal reflux disease without esophagitis; K51.80 Other ulcerative colitis without complications; F41.9 Anxiety disorder, unspecified; Z66 Do not resuscitate; Z86.711 Personal history of pulmonary embolism; Z86.0100 Personal history of colon polyps, unspecified; Z87.442 Personal history of urinary calculi; Z90.79 Acquired absence of other genital organ(s); Z98.42 Cataract extraction status, left eye; Z98.41 Cataract extraction status, right eye; Z79.84 Long term (current) use of oral hypoglycemic drugs; Z79.82 Long term (current) use of aspirin; Z79.01 Long term (current) use of anticoagulants; Z79.899 Other long term (current) drug therapy
CPT/HCPCS: 36415; 74177; 80053; 81001; 83690; 85025; 87086; 96374; 99284; A9270; J1885; Q9967

== ENCOUNTER 2025-03-05 10:14 | Outpatient (CLI) | payer MEDICARE, SELFPAY ==
--- OUTSIDE RECORDS SUMMARY | 2025-03-05 10:15 | XMS_ITS | Clinical Summary ---
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 Gender Identity Not on file Sexual Orientation [...] 1:30 PM CDT Height 175.3 cm (5' 9) 12/12/2021 1:35 PM CDT Body Mass Index 41.64 12/12/2021 1:35 PM CDT Plan of Treatment Health Maintenance Due Date Last Done Comments DTAP/TDAP/TD VACCINES (1 - Tdap) 12/27/1963 RSV VACCINE (60+ or ) (1 - 1-dose 75+ series) 12/27/2019 ZOSTER VACCINE (2 of 2) 07/30/2020 06/04/2020 INFLUENZA VACCINE (#1) 2025 0, 04/29/2019, 04/29/2018 PNEUMOCOCCAL VACCINE 50+ YEARS Completed 08/07/2017 , 07/07/2016 Insurance AETNA PPO [facility] Care Teams Edge Bander Hand Relationship Specialty Start Date End Date Lucio Oliveira MD [address] [place] [address] PCP - General Family Practice 10/21/18
--- OUTSIDE RECORDS SUMMARY | 2025-03-05 10:16 | XMS_ITS | Encounter Summary ---
Author Organization [facility] Address [address] [place] [address] Care Team Providers Care Pig Farm Manager Name Role Phone Lucio Oliveira MD Primary Care Provider [phone] Encounter Details Date Type Department Care Team (Latest Contact Info) Description 12/18/2008 Outpatient Historical [facility], MD Pool NO ADDRESS ON FILE Other Degenerative Diseases of the Basal Ganglia Social History Tobacco Use Types Packs/Day Years Used Date Smoking Tobacco: Never Alcohol Use Standard Drinks/Week Comments No 0 (1 standard drink = 0.6 oz pur e alcohol) Sex and Gender Information Value Date Recorded Sex Assigned at Not on file Legal Sex 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 Gender Identity Not on file Sexual Orientation [...] TOTAL PROTEIN 6.9 6.3 - 8.6 g/dL [facility] POTASSIUM 4.6 3.5 - 4.9 mmol/L [facility] GLUCOSE 74 65 - 99 mg/dL [facility] AST 29 12 - 38 U/L [facility] BUN 15 6 - 20 mg/dL [facility] CALCIUM 9.6 8.6 - 10.2 mg/dL [facility] CHLORIDE 101 96 - 108 mmol/L [facility] ALBUMIN 4.2 3.4 - 4.8 g/dL [facility] CREATININE 1.12 0.67 - 1.17 mg/dL [facility] SODIUM 138 135 - 145 mmol/L [facility] ALT 31 0 - 41 U/L [facility] ALKALINE PHOSPHATASE 75 40 - 129 U/L [facility] BILIRUBIN TOTAL 0.5 0.2 - 1.0 mg/dL [facility] CO2 27 22 - 30 mmol/L [facility] GFR, >60 >=60 mL/min/1.7 sq meter [facility] GFR >60 >=60 mL/min/1.7 sq meter [facility] Comment: Modification of Diet in Renal Disease (MDRD) study formula. Estimated GFR rate interpretative information for both Americans and non- Americans is available on the [facility] Intranet at: [email or web address] Select: Lab Policies and Procedures Select: Reference Ranges - GFR 12/18/2008 1:49 PM CDT 12/18/2008 3:00 PM CDT us Pool Palacios MD CHEMISTRY ORDERABLES Edited INTERFACE SYSTEM Refer to clinic/hospital department [facility] CLIA# [id number] [address] [place] [address] * (ABNORMAL) CBC WITH DIFFERENTIAL (12/18/2008 1:49 PM CDT) MCV 100.8(H) 82.0 - 99.0 fL [facility] PLATELETS 245 140 - 350 K/uL [facility] HEMOGLOBIN 17.1(H) 13.6 - 16.5 g/dL [facility] RDW 13.8 11.5 - 14.5 % [facility] WBC 6.5 4.0 - 9.8 K/uL [facility] MCH 34.5(H) 27.2 - 32.6 pg [facility] MPV 11.3 9.3 - 12.4 fL [facility] HEMATOCRIT 50.0(H) 40.0 - 48.0 % [facility] RDW-STDEV 50.9(H) 37.1 - 48.7 fL [facility] RBC 4.96 4.50 - 5.40 M/uL [facility] MCHC 34.2 31.5 - 35.5 % [facility] NEUTROPHILS 60 45 - 70 % [facility] NEUTROPHIL ABSOLUTE 3.88 1.90 - 7.00 K/uL [facility] EOSINOPHILS 3 0 - 7 % [facility] EOSINOPHIL ABSOLUTE 0.19 0.00 - 0.70 K/uL [facility] LYMPHOCYTES 27 16 - 45 % [facility] LYMPHOCYTE ABSOLUTE 1.76 0.70 - 4.50 K/uL [facility] BASOPHILS 1 0 - 2 % [facility] BASOPHILS ABSOLUTE 0.06 0.00 - 0.20 K/uL [facility] MONOCYTES 9 3 - 13 % [facility] MONOCYTE ABSOLUTE 0.59 0.10 - 1.30 K/uL [facility] 12/18/2008 1:49 PM CDT 12/18/2008 3:01 PM CDT us Pool Palacios MD HEMATOLOGY ORDERABLES Edited INTERFACE SYSTEM Refer to clinic/hospital department [facility] CLIA# [id number] [address] [place] [place] [address] documented in this encounter Visit Diagnoses Diagnosis Other degenerative diseases of the basal ganglia documented in this encounter Care Teams Pig Farm Manager Relationship Specialty Start Date End Date Lucio Oliveira MD [address] [place] [address] PCP - General Family Practice 10/21/18 documented as of this encounter
--- OUTSIDE RECORDS SUMMARY | 2025-03-05 10:16 | XMS_ITS | Patient Health Record ---
Author Organization [facility] [employer] Address [address] [place] [address] Care Team Providers Care Mechanical Adjuster Name Role Phone TAMMIE JOSEPH MD Primary Care Provider Unavail able Nancy Paige Unavailable [phone] GOKUL CARNEY Unavailable Unavailable Anastasia Sweeney Unavailable [phone] Allergies Allergen (clinical drug ingredient) Drug/Non Drug [...] Oxazepam (BZO) n 0 - 300 ng/ml 2-zupdjdsxqw-7,6-uvrgiwiz-6,3-diphenylpyrrolidine (AKBAR P) n 0 - 300 ng/ml Methamphetamine (MET) n 0 - 1000 ng/ml Methylenedioxymethamphetamine (MDMA) n 0 - 500 ng/ml Morphine (MOP 300/[id number]) n 0 - 300 ng/ml Methadone (MTD) n 0 - 300 ng/ml Phencyclidine (PCP) n 0 - 25 ng/ml Nortriptyline (TCA) n 0 - 1000 ng/ml Oxycodone n 0 - 300 ng/ml x n 0 - 300 ng/ml Reason For Referral No Information Medications Medication SIG (Take, Route, Frequency, Duration) Notes Start Date End Date Status Ketorolac Tromethamine 10 MG Oral; Duration: 5 Days Not-Taking Sotalol HCl 80 MG TAKE 1 TABLET BY MOUTH EVERY 12 HOURS Oral; Duration: 30 Days Not-Taking Balsalazide Disodium 750 MG Oral; Durati on: 90 Days Not-Taking Ketorolac Tromethamine 10 MG TAKE 1 TABLET BY MOUTH EVERY 6 HOURS NEEDED Oral; Duration: 5 Days Not-Taking Lidocaine 5 % 1 patch remove after 12 hours Externally Once a day Active Aspirin 81 81 MG 1 tablet Orally Once a day Active Trelegy Ellipta 100-62.5-25 MCG/ACT 1 puff Inhalation Once a day Active Empagliflozin 10 MG 1 tablet Orally Once a day Active Potassium Chloride 20 MEQ 1 packet with food Orally Once a day Active Balsalazide Disodium 750 MG 2 capsules O rally Twice a day Active Roflumilast 250 MCG TAKE 1 TABLET BY MOUTH ONCE DAILY FOR 4 WEEKS Oral; Duration: 28 Days Not-Taking Roflumilast 500 MCG TAKE 1 TABLET BY MOUTH ONCE DAILY Oral; Duration: 30 Days Not-Taking Ipratropium [place] 0.02 % INHALE 1 VIAL IN NEBULIZER THREE TIMES DAILY NEEDED FOR SHORTNESS OF BREATH FOR WHEEZING FOR 1 MONTH (USE IN THE NEBULIZER WITH ALBUTEROL) Inhalation; Duration: 24 Days Not-Taking Roflumilast 250 MCG Oral; Duration: 28 Days Not-Taking Pregabalin 75 MG 1 capsule in the evening 1 to 3 hours before bedtime Orally Once a day Active HYDROcodone-Acetaminophen 5-325 MG Oral; Duration: 3 Days Not-Taking Cholecalciferol 100 MCG (4000 UT) 1 tablet Orally Once a day Active Vitamin D 50 MCG (2000 UT) 1 tablet Oral ly Once a day Active Albuterol Sulfate (2.5 MG/3ML) 0.083% Inhalation; Duration: 30 Days Not-Taking Lysine 1000 MG as directed Orally Active HYDROcodone-Acetaminophen 5-325 MG TAKE 1 TO 2 TABLETS BY MOUTH EVERY 6 HOURS NEEDED Oral; Duration: 3 Days Not-Taking clonazePAM 0.5 MG TAKE ONE-HALF TABLET BY MOUTH EVERY DAY AT BEDTIME ADMINISTER 30 MINUTES BEFORE BEDTIME Oral; Duration: 30 Days Not-Taking Metoprolol Tartrate 25 MG TAKE 1 TABLET BY MOUTH TWICE DAILY Oral; Duration: 90 Days Not-Taking Amoxicillin 875 MG TAKE 1 TABLET BY MOUTH EVERY 12 HOURS FOR 5 DAYS Oral; Duration: 5 Days Not-Taking Entresto 49-51 MG Oral; Duration: 90 Days Active Eliquis 5 MG Oral; Duration: 90 Days Active Klor-Con M20 20 MEQ Oral; Duration: 90 Days Active Jardiance 10 MG Oral; Duration: 90 Days Active Ferrous Sulfate 325 (65 Fe) MG 1 tablet Orally Three times a Week Active traZODone HCl 100 MG Oral; Duration: 30 Days Active Multivitamin - 1 tablet Orally Once a day Active Sertraline HCl 25 MG Take 1 tablet by mouth once daily; Duration: 30 days Active Albuterol Sulfate HFA 108 (90 Base) MCG/ACT INHALE 2 PUFFS BY MOUTH EVERY 4 HOURS NEEDED FOR SHORTNESS OF BREATH OR WHEEZING Inhalation; Duration: 17 Days Active Omeprazole 20 MG Oral; Duration: 90 Days Active traMADol HCl 50 MG TAKE 1 TABLET BY MOUTH TWICE DAILY FOR PAIN Oral; Duration: 15 Days Active Rosuvastatin Calcium 20 MG Oral; Duratio n: 90 Days Active Albuterol Sulfate (2.5 MG/3ML) 0.083% Inhalation; Duration: 5 Days Active Furosemide 40 MG Oral; Duration: 90 Days Active Docusate Sodium 100 MG TAKE 1 CAPSULE BY MOUTH ONCE DAILY NEEDED FOR CONSTIPATION Oral; Duration: 30 Days Active Pramipexole Dihydrochloride 1 MG Oral; Duration: 90 Days Active Roflumilast 500 MCG Oral; Duration: 90 Days Active Tamsulosin HCl 0.4 MG TAKE 1 CAPSULE BY MOUTH AT BEDTIME Oral; Duration: 90 Days Active Sotalol HCl 80 MG Oral; Duration: 90 Days Active Sertraline HCl 25 MG Take 1 tablet by mouth once daily; Duration: 30 Active Spironolactone 25 MG Oral; Duration: 90 Days Active methylPREDNISolone 4 MG Oral; Duration: 6 Days Not-Taking Eszopiclone 1 MG Oral; Duration: 1 Days Not-Taking predniSONE 10 MG Oral; Duration: 12 Days Not-Taking predniSONE 10 MG TAKE 4 TABLETS DAILY FOR 3 DAYS IN THE MORNING WITH FOOD, DECREASED BY 1 TAB EVERY 3 DAYS UNTIL COMPLETED Oral; Duration: 12 Days Not-Taking Eszopiclone 1 MG TAKE 1 TABLET BY MOUTH AT BEDTIME AT SLEEP LAB IF NEEDED AT THE START OF THE TEST DO NOT TAKE AT HOME Oral; Duration: 1 Days Not-Taking methylPREDNISolone 4 MG Oral; Duration: 6 Days Not-Taking Social History Tobacco Use: Social History Observation Description Date Details (start date - stop date) Never Smoker NA - NA Sex Assigned At : Social History Observation Description Sex Assigned At Male Tobacco Control (Standard) Question Answer Notes Tobacco use: Nonsmoker Section Notes: Lives in [place] with w hussein of 56 yrs, 2 kids. [place] up [facility]. 6 siblings. Education/employment: Retired, worked at [employer] for 33 yrs, then worked at [employer]. service: 4 yrs [employer]. Lives in [place] with w hussein of 56 yrs, 2 kids. G[place] up [facility]. 6 siblings. Education/employment: Retired, worked at [employer] for 33 yrs, then worked at [employer]. service: 4 yrs [employer]. Lives in [place] with w hussein of 56 yrs, 2 kids. G[place] up [facility]. 6 siblings. Education/employment: Retired, worked at [employer] for 33 yrs, then worked at [employer]. service: 4 yrs [employer]. Problems Problem Type SNOMED Code ICD Code Onset Dates Problem Status W/U Status Risk Notes Problem Chronic insomnia (499807135) Chronic insomnia (F51.04) Active confirmed Problem Adjustment disorder (22771176) Adjustment disorder with other symptom (F43.29) Active confirmed Problem Obstructive sleep apnea syndrome (48136688) KIRSTEN treated with BiPAP (G47.33) Active confirmed Problem Essential hypertension (63511700) Benign essential HTN (I10) Active confirmed Vital Signs Heart Rate 86 /min 02/13/2025 Height-cm 172.72 cm 02/13/2025 Blood pressure diastolic 90 mm Hg 02/13/2025 Weight-kg 127.91 kg 02/13/2025 Height 68 in 02/13/2025 Blood pressure systolic 186 mm Hg 02/13/2025 Weight 282 lbs 02/13/2025 BMI 42.87 kg/m2 02/13/2025 Encounters Encounter Location Date Provider Diagnosis [facility] [facility] [address] [address] 03/21/2024 Anastasia Sweeney Adjustment disorder with other symptom F43.29 ; Chronic insomnia F51.04 and KIRSTEN treated with BiPAP G47.[address] [address] 04/18/2024 Anastasia Patel Adjustment disorder with other symptom F43.29 ; Chronic insomnia F51.04 and KIRSTEN treated with BiPAP G47.[address] [address] 07/18/2024 Nancy Paige Adjustment disorder with other symptom F43.29 ; Chronic insomnia F51.04 and KIRSTEN treated with BiPAP G47.[address] [address] 09/16/2024 Nancy Paige Chronic insomnia F51.04 ; Adjustment disorder with other symptom F43.29 ; KIRSTEN treated with BiPAP G47.33 and Benign hypertension I10 [address] [address] 11/14/2024 Nancy Paige Adjustment disorder with other symptom F43.29 ; Chronic insomnia F51.04 ; KIRSTEN treated with BiPAP G47.33 ; Benign essential HTN I10 and Encounter for screening for depression Z13.[address] [address] 02/13/2025 Nancy Paige Chronic insomnia F51.04 ; Adjustment disorder with other symptom F43.29 ; KIRSTEN treated with BiPAP G47.33 and Benign essential HTN I10 [address] [address] 07/31/2024 Nancy Paige Adjustment disorder with other symptom F43.[address] [address] 09/17/2024 Nancy Paige Assessments Encounter Date Diagnosis [...] and management - Encourage follow-up with pulmologist/sle financial reporting director for further evaluation and management Hypertension - Blood pressure reading high today - Does not check BP regularly at home Plan: - Encouraged purchase of a home blood pressure monitor - Follow up with sales account specialist if evelated blood pressure persist - Encouraged [...] mental health status after discontinuing Sertraline 11/14/2024 Chronic insomnia (ICD-10 - F51.04) 11/14/2024 Adjustment disorder with other symptom (ICD-10 - F43.29) 02/13/2025 Chronic insomnia (ICD-10 - F51.04) 02/13/2025 Adjustment disorder with other symptom (ICD-10 - F43.29) 11/14/2024 KIRSTEN treated with BiPAP (ICD-10 - G47.33) 03/21/2024 KIRSTEN treated with BiPAP (ICD-10 - [...] and management - Encourage follow-up with pulmologist/sle financial reporting director for further evaluation and management Hypertension - Blood pressure reading high today - Does not check BP regularly at home Plan: - Encouraged purchase of a home blood pressure monitor - Follow up with sales account specialist if evelated blood pressure persist - Encouraged [...] and management - Encourage follow-up with pulmologist/sle financial reporting director for further evaluation and management Hypertension - Blood pressure reading high today - Does not check BP regularly at home Plan: - Encouraged purchase of a home blood pressure monitor - Follow up with sales account specialist if evelated blood pressure persist - Encouraged [...] and management - Encourage follow-up with pulmologist/sle financial reporting director for further evaluation and management Hypertension - Blood pressure reading high today - Does not check BP regularly at home Plan: - Encouraged purchase of a home blood pressure monitor - Follow up with sales account specialist if evelated blood pressure persist - Encouraged [...] ability to sleep f/u sleep medicine MD 11/14/2024 Benign essential HTN (ICD-10 - I10) 02/13/2025 KIRSTEN treated with BiPAP (ICD-10 - G47.33) 02/13/2025 Benign essential HTN (ICD-10 - I10) 11/14/2024 Encounter for screening for depression (ICD-10 - Z13.31) 11/14/2024 Other Danial Wilson, a 78-year-old male with a history of hypertension, presents with multiple medical concerns including kidney stones, gallbladder stones, urinary incontinence, and frequent bowel movements. HypertensionAssess ment: Patient's blood pressure has increased from 184/89 in August to 196/98 today, indicating poorly controlled hypertension. He reports being on a blood thinner, which may complicate management. Given the severity of the hypertension and the patient's age, this requires immediate attention.Plan:- Urgent referral to primary care physician for hypertension management- Recommend follow-up with sales account specialist NephrolithiasisAss essment: Patient reports kidney stones causing significant pain. A procedure with Dr. Ashley is scheduled for December 02 to address this issue. The plan involves placing a stent, which will need to remain in place for 7-10 days.Plan:- Await scheduled procedure with Dr. Ashley on December 02- Patient education provided on stent placement and duration (7-10 days) CholelithiasisAsse ssment: Patient reports gallbladder stones causing pain. A surgical consultation with Dr. Dawn is pending, with the surgeon returning to the office on November 21.Plan:- Await surgical consultation with Dr. Dawn after November 21 for gallbladder management Urinary IncontinenceAssess ment: Patient reports frequent urination (every 15 minutes) and nocturnal enuresis. This may be related to the kidney stones or could be a separate urological issue.Plan:- Monitor urinary symptoms in relation to upcoming kidney stone procedure- Consider urological evaluation if symptoms persist after kidney stone treatment Altered Bowel HabitsAssessment: Patient reports increased frequency of bowel movements, with up to 10 movements in one day. This could be related to the gallbladder issues or represent a separate gastrointestinal concern.Plan:- Monitor bowel habits in relation to upcoming gallbladder management- Consider gastroenterology referral if symptoms persist after gallbladder treatment Mood and AnxietyAssessment: Patient reports mood as okay, but expresses some anxiety related to ongoing medical issues. No significant depressive symptoms reported at this time.Plan:- Continue current psychiatric management- Follow-up appointment scheduled in 3 months to reassess mood and anxiety after medical procedures 02/13/2025 Javier Alcocer, an adult patient with a history of hospitalizations, presents with recent stressors, medication adjustments, and urinary incontinence. Medication ManagementAssessme nt: Patient reports recent changes in pregabalin dosage, initially prescribed by Dr. James. He experienced difficulty tolerating higher doses (75mg) and independently reduced to 25mg. Dr. James recently increased the dose back to 75mg BID. He is currently taking 175mg at bedtime only, contrary to prescribed regimen. Trazodone dosage was previously reduced by YVROSE Monge, but has been increased back to 2 tablets nightly due to sleep disturbances. He is also taking sertraline 20mg, with no reported issues.Plan:- Continue sertraline 20mg daily- Continue trazodone 2 tablets nightly- Pregabalin- Advised patient can take sertraline at any time of day, as it does not typically cause drowsiness or stimulation- Follow up in 3 months or sooner if needed Sleep DisturbanceAssessm ent: Patient reports sleeping 7-10 hours nightly but waking frequently to use the bathroom. Sleep has improved with the increase in trazodone dosage.Plan:- Continue current sleep medication regimen- Monitor sleep quality and duration Urinary IncontinenceAssess ment: Patient reports recent episode of urinary incontinence while pumping gas. Scheduled for a procedure with Dr. Kramer next month to implant a wire for bladder control.Plan:- Await scheduled procedure with Dr. Kramer for bladder control Stress ManagementAssessme nt: Patient reports recent stressors including hospitalizations and high medical bills. Despite these stressors, he states mood is okay now.Plan:- Continue current sertraline dosage of 25mg- Offer option for earlier follow-up if needed- Informed patient about walk-in clinic availability for urgent concerns Plan Of Treatment Next Appt Details Provider Name:Nancy Titus elle, 05/15/2025 01:15:00 PM, [address], [address], [place], [address], Insurance Providers Payer Name Payer Address Payer Phone Subscriber Number Group Number Insured Name Patient Relationship to Insured Coverage Start Date Coverage End Date [employer] [address] [place] [address] [id number] Danial Wilson Self - patient is the [...] Surgical History Surgery Date(Month/Year) colon surgery-R hemicolectomy 2013 prostate 1998 cardiac cath cataracts ulnar nerve esophageal dilatation kidney stones TURP Hospitalization History Reason Date(Month/Year) psychotic episode due to bi pap not work ing 01/2024
--- OUTSIDE RECORDS SUMMARY | 2025-03-05 10:16 | XMS_ITS | Clinical Summary ---
Author Organization [address] Address [address] [place] [address] Care Team Providers Care Reconciling Clerk Name Role Phone Lucio Oliveira MD Primary Care Provider [phone] Lucio Oliveira MD Unavailable [phone] Allergies Active Allergy Reactions Criticality Noted Date Comments Codeine Nausea & Vomiting High constipation Influen Tr-Split 2004 Vac (Pf) Rash Medium 09/18/2019 Methylprednisolone Nausea & Vomiting,Nausea And Vomiting High 07/13/2016 Medications omeprazole (PriLOSEC) 20 mg capsule 20 [...] mcg inhaler Inhale 1 puff daily Active spironolactone (ALDACTONE) 25 mg tablet Take 1 tablet (25 mg total) by mouth every morning 90 tablet 3 05/09/20 23 Active tamsulosin (FLOMAX) 0.4 mg extended release capsule Take 1 capsule (0.4 mg total) by mouth nightly 06/06/20 23 Active empagliflozin (JARDIANCE) 10 mg tablet Take 1 tablet (10 mg total) by mouth daily 90 tablet 3 10/24/19 24 Active roflumilast (DALIRESP) 500 mcg tablet 1 tablet (500 mcg total) daily 11/07/19 24 Active lysine 1,000 mg tablet Take by mouth 07/30/18 70 Active sertraline (ZOLOFT) 25 mg tablet Take 1 tablet (25 mg total) by mouth daily Active docusate sodium (COLACE) 100 mg capsuleIndicati ons:constipatio n Take 1 capsule (100 mg total) by mouth 2 (two) times a day as needed for constipation Active sacubitriL-vals chayito (ENTRESTO) 49-51 mg tabletIndicatio ns:chronic heart failure Take 1 tablet by mouth 2 (two) times a day 180 tablet 10/09/19 25 Active traMADoL (ULTRAM) 50 mg tablet Take 1 tablet (50 mg total) by mouth every 6 (six) hours as needed for pain 10 tablet 12/03/19 25 Active apixaban (ELIQUIS) 5 mg tablet Take 1 tablet (5 mg total) by mouth 2 (two) times a day 180 tablet 3 12/12/19 25 Active sotaloL (BETAPACE) 80 mg tabletIndicatio ns:Atrial flutter, unspecified type (HCC) TAKE 1 TABLET EVERY 12 HOURS DISCONTINUE METOPROLOL 180 tablet 3 12/30/19 25 Active pregabalin (LYRICA) 75 mg capsuleIndicati ons:Restless Legs Syndrome Take 1 capsule (75 mg total) by mouth 2 (two) times a day 5 01/24/20 25 Active traMADoL (ULTRAM) 50 mg tablet Take 1 tablet (50 mg total) by mouth every 6 (six) hours as needed for pain 09/11/19 23 025 Discontin ued(Dupli joanne order) pregabalin (LYRICA) 25 mg capsule Take 1 capsule (25 mg total) by mouth 2 (two) times a day 025 Discontin ued(Alter marylou therapy) ciprofloxacin (CIPRO) 500 mg tablet Take 1 tablet (500 mg total) by mouth 2 (two) times a day 6 tablet 12/03/19 25 025 Discontin ued(Thera py completed ) Active [...] II 08/09/2021 Coronary artery disease invo lving [place] coronary artery of [place] heart without angina pectoris 08/09/2021 Cough productive [...] 10/19/2017 Assessment & Plan (06/30/2019 1:54 PM COMPENSATION ADVISOR): He will try to get 30 minutes [...] elevator. Assessment & Plan (06/07/2018 1:52 PM COMPENSATION ADVISOR): Obesity is improving with lifestyle modifications. Discussed [...] hours. Assessment & Plan (06/30/2019 1:53 PM COMPENSATION ADVISOR): He will wear his VPAP auto nightly [...] set at 22/14 cm water pressure to [facility] for repair replace. Machine needs to be sent to the manufacture and checked. He should receive a loaner machine set on 22/14cm water pressure. He will start using it machine for 2 weeks and then return to the office for download. If nahed continues to show problems with elevated AHI he should return to the sleep lab for bilevel titration. Assessment & Plan (06/07/2018 1:52 PM COMPENSATION ADVISOR): He will wear his bilevel machine nightly [...] bedtime. Assessment & Plan (06/07/2018 1:52 PM COMPENSATION ADVISOR): He will try to practice good sleep [...] bedtime. Assessment & Plan (06/30/2019 1:54 PM COMPENSATION ADVISOR): He will take clonazepam 2 mg every [...] without comorbidity) 11/16/2016 10/19/2017 Testicular hypofunction 06/08/2016 0311/2023 Body mass index 40+ - severely obese [...] Encounters Date Type Department Care Team Description 01/13/2025 2:15 PM CDT Office Visit [facility] Cardiology at [address] [place] [address] Heber Alvarado MD Persistent atrial fibrillation (HCC) (Primary Dx) 12/09/2024 Telephone [facility] Cardiology [address] [place] [address] Heber Alvarado MD Med Refill from Last 3 Months Immunizations Immunization Administration [...] BIOPSY COLON SURGERY APPENDECTOMY 07/30/2018 - 07/29/2019 patient denies LITHOTRIPSY CARDIOVERSION 07/30/2022 - 08/29/2022 Medical History Medical History Date Comments Gastroesophageal reflux disease GERD - Gastro-esophageal reflux disease; Comments: AKV 12/08/2014 - Hypertension Hypertension Adiposity Obesity Depression Depression Hyperlipidemia COPD (chronic obstructive pu lmonary disease) Sleep apnea Pulmonary embolus (HCC) Chronic bronchitis (HCC) Cataracts, bilateral Gout Enlarged prostate Chronic kidney disease 3 Atrial fibrillation and flutter Chronic heart failure with p reserved ejection fraction CAD (coronary artery disease) RLS (restless legs syndrome) Ulcerative colitis Kidney stone Family History Medical History Relation [...] you have a drink containing alcohol? Never 03/03/2025 Q2: How many drinks containi ng alcohol do you have on a typical day when you are drinking? Patient does not drink Q3: How often do you have si x or more drinks on one occasion? Never 03/03/2025 Personal Safety Answer Date Recorded Have you ever been in or are you currently in a harmful physical or emotional relationship or is someone making you feel afraid or unsafe? Denies 12/02/2024 Sex and Gender Information Value Date Recorded Sex Assigned at Not on file Legal Sex Male 2:18 AM COMPENSATION ADVISOR Gender Identity Not on file Sexual Orientation Not on file Obstetrics History Last Filed Vital Signs Vital Sign Reading Time Taken Comments Blood Pressure 164/82 01/13/2025 2:27 PM CDT Pulse 57 01/13/2025 2:27 PM CDT Temperature 36.1 C (97 F) 12/02/2024 1:30 PM CDT Respiratory Rate 22 12/02/2024 1:30 PM CDT Oxygen Saturation 95% 01/13/2025 2:27 PM CDT Inhaled Oxygen Concentration - - Weight 126.1 kg (278 lb) 01/13/2025 2:27 PM CDT Height 177.8 cm (5' 10) 01/13/2025 2:27 PM CDT Body Mass Index 39.89 01/13/2025 2:27 PM CDT Plan of Treatment Upcoming Encounters Date Type Department Care Team (Latest Contact Info) Description 03/10/2025 9:00 AM CDT Hospital Encounter [facility] Operating Room [address] [place] [address] [place] [address] [place] [address] 03/10/2025 9:00 AM CDT - 03/10/2025 10:15 AM CDT Surgery [facility] Operating Room [address] [place] [address] [place] [address] [place] [address] PERIPHERAL NERVE EVALUATION TRIAL Scheduled Procedures Name Priority Associated Diagnoses Date/Ti me REPROGRAM SIMPLE NEUROSTIMULATOR Overactive bladder 03/10/2025 9:00 AM CDT Health Maintenance Due Date Last Done Comments Depression Screening 1945 Fall Risk Assessment 1945 DTaP/Tdap/Td Vaccine (1 - Tdap) 12/27/1955 Hepatitis B Screening 1962 Well Visit 65+ 2009 Zoster Vaccine (2 of 2) 07/30/2020 06/04/2020 Influenza Vaccine (#1) 2025 , 04/29/2019, 04/29/2018 Pneumococcal vaccine 65+ Completed 08/07/2017, 03/2016 Medical Devices Implanted Type Area Skin Grader Device Identifier Shelf Expiration Date Model / Serial / Lot [employer] Maximo Stent Ureteral Set Double Pigtail Tapered Tip Contour [id number] Hydroplus Coated [id number] - [id number] Implanted:Qty: 1 on 12/02/2024 by Sherice Santos MD at [facility] Right: Ureter [employer] Maximo 06/18/2027 [id number] / / [id number] Insurance AETNA MEDICARE AETNA MEDICARE AETNA MEDICARE Care Teams Reconciling Clerk Relationship Specialty Start Date End Date Lucio Oliveira MD PCP - General 07/02/19 Lucio Oliveira MD Family Medicine 07/02/19
--- OUTSIDE RECORDS SUMMARY | 2025-03-05 10:16 | XMS_ITS | Clinical Summary ---
Author Organization [facility] Address [address] [place] [address] Phone Care Team Providers Care Tenant Relations Coordinator Name Role Phone Lucio Oliveira MD Primary Care Provider [phone] Allergies Active Allergy Reactions Criticality Noted Date [...] 10:04 AM CDT Height 175.3 cm (5' 9) 05/11/2022 10:04 AM CDT Body Mass Index 45.04 05/11/2022 10:04 AM CDT Plan of Treatment Health Maintenance Due Date Last Done Comments Influenza Vaccine (#1) 2025 04/29/2020 Pneumococcal PPSV23/PCV13 65 + Years / Low and Medium Risk Completed 08/07/2017, 07/07/2016 Insurance AETNA Care Teams Tenant Relations Coordinator Relationship Specialty Start Date End Date Lucio Oliveira MD [address] [place] [address] PCP - General Family Medicine 10/16/18
--- OUTSIDE RECORDS SUMMARY | 2025-03-05 10:16 | XMS_ITS | Encounter Summary ---
Author Organization [facility] Healthcare Address [address] [place] [address] Care Team Providers Care Dry Starch Operator Name Role Phone Lucio Oliveira MD Primary Care Provider [phone] Lucio Oliveira MD Unavailable [phone] Encounter Details Date Type Department Care Team (Late st Contact Info) Description 09/08/2024 Orders Only [facility] Health Information Management [address] [place] [address] Nav Morejon MD [address] [facility] [address] [address] Social History Tobacco Use Types Packs/Day Years Used Date Smoking Tobacco: Never Alcohol Use Standard Drinks/Week Comments No 0 (1 standard drink = 0.6 oz pur e alcohol) Sex and Gender Information Value Date Recorded Sex Assigned at Not on file 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 Sex Male 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 Gender Identity Not on file Sexual Orientation Not on file documented as of this encounter Plan of Treatment Upcoming Encounters Date Type Department Care Team (Latest Contact Info) Description 03/10/2025 9:00 AM CDT Hospital Encounter [facility] Operating Room [address] [place] [address] [place] [address] [address] 03/10/2025 9:00 AM CDT - 03/10/2025 10:15 AM CDT Surgery [facility] Operating Room [address] [place] [address] [place] [address] [place] [address] PERIPHERAL NERVE EVALUATION TRIAL Scheduled Procedures Name Priority Associated Diagnoses Date/Ti me REPROGRAM SIMPLE NEUROSTIMULATOR Overactive bladder 03/10/2025 9:00 AM CDT documented as of this encounter Procedures Procedure Name Priority Date/Time Associated Diagnosis Comments CARDIOLOGY DOCUMENT SCAN 09/08/2024 documented in this encounter Results * Cardiology Document Scan (09/08/2024) Anatomical Region Laterality Modality Other Nav Morejon MD CV CARDIAC SERVICES PROCEDURES F inal Result documented in this encounter Visit Diagnoses Not on filedocumented in this encounter Care Teams Dry Starch Operator Relationship Specialty Start Date End Date Lucio Oliveira MD PCP - General 07/02/19 Lucio Oliveira MD Family Medicine 07/02/19 documented as of this encounter
--- OUTSIDE RECORDS SUMMARY | 2025-03-05 10:23 | XMS_ITS | Continuity of Care Document ---
Author Organization [facility] Address [address] [place] [address] Phone Care Team Providers Care Fire Management Technician Name Role Phone Rebecca Rowland Unavailable Unavailable Procedures Procedure Date Eye Exam, New Patient Refraction Advance Directives Directive Yes / No Effective Date File Name No Information Encounters Encounter Description Practice Location Reason(s) For Visit Diagnoses Date Provider Providers Copied on Encounter [facility], [address], [place], [place], [address], [place] tel:[phone] [facility] No Information 0-201 0 Janett Fernandez. [address] [facility] , [address], [place], [address], [place]. tel:[phone] Family History Family Member Type Diagnosis Age At Onset No Information Payers Payer name Insurance type Covered green party ID Authoryamilaa shereeneeraj(s) [employer] Vision Plan [id number] Social History Type Description Quantity Date Captured [...]
== END 2025-03-05 10:15 | disposition home or self-care (01) ==
PROVIDERS: PCP Family Medicine; Visit Provider Internal Medicine Critical Care Medicine
DX: J44.0 Chronic obstructive pulmonary disease with (acute) lower respiratory infection (principal); J47.9 Bronchiectasis, uncomplicated
CPT/HCPCS: 87070; 87116; 87205; 87206

== ENCOUNTER 2025-03-06 10:04 | Outpatient (CLI) | payer MEDICARE, SELFPAY ==
--- OUTSIDE RECORDS SUMMARY | 2025-03-06 10:09 | XMS_ITS | Clinical Summary ---
Author Organization [address] Address [address] [place] [address] Care Team Providers Care Tractor Operator Laser Leveling Name Role Phone Lucio Oliveira MD Primary Care Provider [phone] Lucio Oliveira MD Unavailable [phone] Allergies Active Allergy Reactions Criticality Noted Date [...] II 08/09/2021 Coronary artery disease invo lving wainwright coronary artery of wainwright heart without angina pectoris 08/09/2021 Cough productive [...] 10/19/2017 Assessment & Plan (06/30/2019 1:54 PM NET FRONT END DEVELOPER): He will try to get 30 minutes [...] elevator. Assessment & Plan (06/07/2018 1:52 PM NET FRONT END DEVELOPER): Obesity is improving with lifestyle modifications. Discussed [...] hours. Assessment & Plan (06/30/2019 1:53 PM NET FRONT END DEVELOPER): He will wear his VPAP auto nightly [...] 22/14 cm water pressure to [facility] for repair replace. Machine needs to be [...] titration. Assessment & Plan (06/07/2018 1:52 PM NET FRONT END DEVELOPER): He will wear his bilevel machine nightly [...] bedtime. Assessment & Plan (06/07/2018 1:52 PM NET FRONT END DEVELOPER): He will try to practice good sleep [...] bedtime. Assessment & Plan (06/30/2019 1:54 PM NET FRONT END DEVELOPER): He will take clonazepam 2 mg every [...] Description 01/13/2025 2:15 PM CDT Office Visit [facility] Cardiology at [address] [place] [address] Heber Alvarado MD Persistent atrial fibrillation (HCC) (Primary Dx) 12/09/2024 Telephone [facility]iology [address] [place] [address] Heber Alvarado MD Med Refill [...] on file Legal Sex Male 2:18 AM NET FRONT END DEVELOPER Gender Identity Not on file Sexual [...] Description 03/10/2025 9:00 AM CDT Hospital Encounter [facility] Operating Room [address] [place] [address] [place] [address] [place] [address] 03/10/2025 9:00 AM CDT - 03/10/2025 10:15 AM CDT Surgery [facility] Operating Room [address] [place] [address] [place] [address] [place] [address] PERIPHERAL NERVE EVALUATION TRIAL Scheduled Procedures Name [...] 08/07/2017, 03/2016 Medical Devices Implanted Type Area Plater Barrel Device Identifier Shelf Expiration Date Model / Serial / Lot [employer] Maximo Stent Ureteral Set Double Pigtail Tapered Tip Contour [id number] Hydroplus Coated [id number] - [id number] Implanted:Qty: 1 on 12/02/2024 by Sherice Santos MD at [facility] Right: Ureter [employer] Maximo 06/18/2027 [id number] / / [id number] Insurance AETNA MEDICARE AETNA MEDICARE AETNA MEDICARE Care Teams Tractor Operator Laser Leveling Relationship Specialty Start Date End Date Lucio Oliveira MD PCP - General 07/02/19 Lucio Oliveira MD Family Medicine 07/02/19
--- OUTSIDE RECORDS SUMMARY | 2025-03-06 10:09 | XMS_ITS | Encounter Summary ---
Author Organization [facility] Address 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 Gender Identity Not on file Sexual Orientation [...] TOTAL PROTEIN 6.9 6.3 - 8.6 g/dL [facility] POTASSIUM 4.6 3.5 - 4.9 mmol/L [facility] GLUCOSE 74 65 - 99 mg/dL [facility] AST 29 12 - 38 U/L [facility] BUN 15 6 - 20 mg/dL [facility] CALCIUM 9.6 8.6 - 10.2 mg/dL [facility] CHLORIDE 101 96 - 108 mmol/L [facility] ALBUMIN 4.2 3.4 - 4.8 g/dL [facility] CREATININE 1.12 0.67 - 1.17 mg/dL [facility] SODIUM 138 135 - 145 mmol/L [facility] ALT 31 0 - 41 U/L [facility] ALKALINE PHOSPHATASE 75 40 - 129 U/L [facility] BILIRUBIN TOTAL 0.5 0.2 - 1.0 mg/dL [facility] CO2 27 22 - 30 mmol/L [facility] GFR, >60 >=60 mL/min/1.7 sq meter [facility] GFR >60 >=60 mL/min/1.7 sq meter [facility] Comment: Modification of Diet in Renal Disease (MDRD) study formula. Estimated GFR rate interpretative information for both Americans and non- Americans is available on the [facility] Intranet at: [email or web address] [facility]: Lab Policies and Procedures [facility]: Reference Ranges - GFR 12/18/2008 1:49 PM CDT 12/18/2008 3:00 PM CDT us Pool Palacios MD CHEMISTRY ORDERABLES Edited INTERFACE SYSTEM Refer to clinic/hospital department [facility] CLIA# [id number] [address] [place] [address] * (ABNORMAL) CBC WITH DIFFERENTIAL (12/18/2008 1:49 PM CDT) MCV 100.8(H) 82.0 - 99.0 fL [facility] PLATELETS 245 140 - 350 K/uL [facility] HEMOGLOBIN 17.1(H) 13.6 - 16.5 g/dL [facility] RDW 13.8 11.5 - 14.5 % [facility] WBC 6.5 4.0 - 9.8 K/uL [facility] MCH 34.5(H) 27.2 - 32.6 pg [facility] MPV 11.3 9.3 - 12.4 fL [facility] HEMATOCRIT 50.0(H) 40.0 - 48.0 % [facility] RDW-STDEV 50.9(H) 37.1 - 48.7 fL [facility] RBC 4.96 4.50 - 5.40 M/uL [facility] MCHC 34.2 31.5 - 35.5 % [facility] NEUTROPHILS 60 45 - 70 % [facility] NEUTROPHIL ABSOLUTE 3.88 1.90 - 7.00 K/uL [facility] EOSINOPHILS 3 0 - 7 % [facility] EOSINOPHIL ABSOLUTE 0.19 0.00 - 0.70 K/uL [facility] LYMPHOCYTES 27 16 - 45 % [facility] LYMPHOCYTE ABSOLUTE 1.76 0.70 - 4.50 K/uL [facility] BASOPHILS 1 0 - 2 % [facility] BASOPHILS ABSOLUTE 0.06 0.00 - 0.20 K/uL [facility] MONOCYTES 9 3 - 13 % [facility] MONOCYTE ABSOLUTE 0.59 0.10 - 1.30 K/uL [facility] 12/18/2008 1:49 PM CDT 12/18/2008 3:01 PM CDT us Pool Palacios MD HEMATOLOGY ORDERABLES Edited INTERFACE SYSTEM Refer to clinic/hospital department [facility] CLIA# [id number] [address] [place] [address] documented in this encounter Visit Diagnoses Diagnosis Other degenerative diseases of the basal ganglia documented in this encounter Care Teams Child Welfare Caseworker Relationship Specialty Start Date End Date Lucio Oliveira MD [address] [place] [address] PCP - General Family Practice 10/21/18 documented as of this encounter
--- OUTSIDE RECORDS SUMMARY | 2025-03-06 10:09 | XMS_ITS | Clinical Summary ---
Author Organization [facility] Address [address] [place] [address] Phone Care Team Providers Care Clinical Research Administrator Name Role Phone Lucio Oliveira MD Primary Care Provider [phone] Allergies Active Allergy Reactions Criticality Noted Date [...] Completed 08/07/2017, 07/07/2016 Insurance AETNA Care Teams Clinical Research Administrator Relationship Specialty Start Date End Date Lucio Oliveira MD [address] [place] [address] PCP - General Family Medicine 10/16/18
--- OUTSIDE RECORDS SUMMARY | 2025-03-06 10:09 | XMS_ITS | Clinical Summary ---
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 [address] PCP - General Family Practice 10/21/18
--- OUTSIDE RECORDS SUMMARY | 2025-03-06 10:09 | XMS_ITS | Continuity of Care Document ---
Author Organization [facility] Address [address] [place] [address] Phone Care Team Providers Care Carton Wrapper Name Role Phone Rebecca Rowland Unavailable Unavailable Procedures Procedure Date Eye Exam, New Patient Refraction Advance Directives Directive Yes / No Effective Date File Name No Information Encounters Encounter Description Practice Location Reason(s) For Visit Diagnoses Date Provider Providers Copied on Encounter [facility], [address], [place], [place], [address], [place] tel:[phone] [facility] No Information 0-201 0 Janett Fernandez. [address] [facility] , [address], [place], [address], [place]. tel:[phone] Family History Family Member Type Diagnosis Age At Onset No Information Payers Payer name Insurance type Covered constitution party ID Authoryamilaa shereeneeraj(s) [employer] Vision Plan [id number] Social History Type Description Quantity Date Captured [...]
--- OUTSIDE RECORDS SUMMARY | 2025-03-06 10:09 | XMS_ITS | Patient Health Record ---
Author Organization [facility] [employer] Address [address] [place] [address] Care Team Providers Care Building Code Inspector Name Role Phone TAMMIE JOSEPH MD Primary Care Provider Unavail able Nancy Paige Unavailable [phone] GOKUL CARNEY Unavailable Unavailable Anastasia Sweeney Unavailable [phone] Allergies Allergen (clinical drug ingredient) Drug/Non Drug [...] Oxazepam (BZO) n 0 - 300 ng/ml 8-aeksucnfnh-5,1-pmcmhyzf-3,3-diphenylpyrrolidine (AKBAR P) n 0 - 300 ng/ml Methamphetamine (MET) n 0 - 1000 ng/ml Methylenedioxymethamphetamine (MDMA) n 0 - 500 ng/ml Morphine (MOP 300/WBB0157) n 0 - 300 ng/ml Methadone (MTD) [...] DAILY Oral; Duration: 30 Days Not-Taking Ipratropium [place] 0.02 % INHALE 1 VIAL IN NEBULIZER [...] Tobacco use: Nonsmoker Section Notes: Lives in [place] with w hussein of 56 yrs, 2 kids. G[place] up [facility]. 6 siblings. Education/employment: Retired, worked at [employer] for 33 yrs, then worked at [employer]. service: 4 yrs [employer]. Lives in [place] with w hussein of 56 yrs, 2 kids. Grew up [facility]. 6 siblings. Education/employment: Retired, worked at [employer] for 33 yrs, then worked at [employer]. service: 4 yrs [employer]. Lives in [place] with w hussein of 56 yrs, 2 kids. Grew up [facility]. 6 siblings. Education/employment: Retired, worked at [employer] for 33 yrs, then worked at [employer]. service: 4 yrs [employer]. Problems Problem Type SNOMED Code ICD Code Onset Dates Problem Status W/U Status Risk Notes Problem Chronic insomnia (529746312) Chronic insomnia (F51.04) Active confirmed Problem Adjustment disorder (16412016) Adjustment disorder with other symptom (F43.29) Active confirmed Problem Obstructive sleep apnea syndrome (34535443) KIRSTEN treated with BiPAP (G47.33) Active confirmed Problem Essential hypertension (52005570) Benign essential HTN (I10) Active confirmed Vital Signs Heart Rate 86 /min 02/13/2025 Height-cm 172.72 cm 02/13/2025 Blood pressure diastolic 90 mm Hg 02/13/2025 Weight-kg 127.91 kg 02/13/2025 Height 68 in 02/13/2025 Blood pressure systolic 186 mm Hg 02/13/2025 Weight 282 lbs 02/13/2025 BMI 42.87 kg/m2 02/13/2025 Encounters Encounter Location Date Provider Diagnosis [facility] [employer] [address] [address] 03/21/2024 Anastasia Sweeney Adjustment disorder with other symptom F43.29 ; Chronic insomnia F51.04 and KIRSTEN treated with BiPAP G47.[address] [address] 04/18/2024 Anastasia Patel Adjustment disorder with other symptom F43.29 ; Chronic insomnia F51.04 and KIRSTEN treated with BiPAP G47.[address] [address] 07/18/2024 Nancy Paige Adjustment disorder with other symptom F43.29 ; Chronic insomnia F51.04 and KIRSTEN treated with BiPAP G47.[address] [address] 09/16/2024 Nancy Paige Chronic insomnia F51.04 ; Adjustment disorder with other symptom F43.29 ; KIRSTEN treated with BiPAP G47.33 and Benign hypertension I10 [address] [address] 11/14/2024 Nancy Paige Adjustment disorder with other symptom F43.29 ; Chronic insomnia F51.04 ; KIRSTEN treated with BiPAP G47.33 ; Benign essential HTN I10 and Encounter for screening for depression Z13.[address] [address] 02/13/2025 Nancy Paige Chronic insomnia F51.04 ; Adjustment disorder with other symptom F43.29 ; KIRSTEN treated with BiPAP G47.33 and Benign essential HTN I10 [address] [address] 07/31/2024 Nancy Paige Adjustment disorder with other symptom F43.[address] [address] 09/17/2024 Nancy Paige Assessments Encounter Date Diagnosis [...] and management - Encourage follow-up with pulmologist/sle fireperson for further evaluation and management Hypertension - Blood pressure reading high today - Does not check BP regularly at home Plan: - Encouraged purchase of a home blood pressure monitor - Follow up with pattern ruler if evelated blood pressure persist - Encouraged to go to urgent care of ER if chest pain develops or concerns symptoms arise Follow-up in 2 months, sooner if concerns arise 11/14/2024 Chronic insomnia (ICD-10 - F51.04) 11/14/2024 [...] assess mental health status after discontinuing Sertraline 02/13/2025 Chronic insomnia (ICD-10 - F51.04) 02/13/2025 Adjustment disorder with other symptom (ICD-10 - F43.29) 07/18/2024 Chronic insomnia (ICD-10 - F51.04) Assessment [...] mental health status after discontinuing Sertraline 03/21/2024 KIRTSEN treated with BiPAP (ICD-10 - G47.33) having issues with BiPap, interfering with ability to sleep f/u sleep medicine MD 04/18/2024 Chronic insomnia (ICD-10 - F51.04) treated by sleep medicine MD with trazodone 11/14/2024 KIRSTEN treated with BiPAP (ICD-10 - G47.33) 09/16/2024 Adjustment disorder with other symptom (ICD-10 [...] and management - Encourage follow-up with pulmologist/sle fireperson for further evaluation and management Hypertension - Blood pressure reading high today - Does not check BP regularly at home Plan: - Encouraged purchase of a home blood pressure monitor - Follow up with pattern ruler if evelated blood pressure persist - Encouraged [...] and management - Encourage follow-up with pulmologist/sle fireperson for further evaluation and management Hypertension - Blood pressure reading high today - Does not check BP regularly at home Plan: - Encouraged purchase of a home blood pressure monitor - Follow up with pattern ruler if evelated blood pressure persist - Encouraged [...] and management - Encourage follow-up with pulmologist/sle fireperson for further evaluation and management Hypertension - Blood pressure reading high today - Does not check BP regularly at home Plan: - Encouraged purchase of a home blood pressure monitor - Follow up with pattern ruler if evelated blood pressure persist - Encouraged to go to urgent care of ER if chest pain develops or concerns symptoms arise Follow-up in 2 months, sooner if concerns arise 11/14/2024 Benign essential HTN (ICD-10 - I10) 07/18/2024 KIRSTEN treated with BiPAP (ICD-10 - [...] ability to sleep f/u sleep medicine MD 02/13/2025 KIRSTEN treated with BiPAP (ICD-10 - [...] physician for hypertension management- Recommend follow-up with pattern ruler NephrolithiasisAss essment: Patient reports kidney stones causing [...] PM, [address], [place], [address], Insurance Providers Payer Name Payer Address Payer Phone Subscriber Number Group Number Insured Name Patient Relationship to Insured Coverage Start Date Coverage End Date A[employer] [address] [place] [address] [phone] [id number] Danial Wilson Self - patient is the [...]
--- OUTSIDE RECORDS SUMMARY | 2025-03-06 10:09 | XMS_ITS | Encounter Summary ---
Author Organization [facility] Healthcare Address [address] [place] [address] Care Team Providers Care Route Salesman And Driver Name Role Phone Lucio Oilveira MD Primary Care Provider [phone] Lucio Oliveira MD Unavailable [phone] Encounter Details Date Type Department Care Team (Late st Contact Info) Description 09/08/2024 Orders Only [facility] Health Information Management [address] [place] [address] Nav Morejon MD [address] [facility] [address] [address] Social History Tobacco Use Types Packs/Day Years Used Date Smoking Tobacco: Never Alcohol Use Standard Drinks/Week Comments No 0 (1 standard drink = 0.6 oz pur e alcohol) Sex and Gender Information Value Date Recorded Sex Assigned at Not on file 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 Gender Identity Not on file Sexual Orientation Not on file documented as of this encounter Plan of Treatment Upcoming Encounters Date Type Department Care Team (Latest Contact Info) Description 03/10/2025 9:00 AM CDT Hospital Encounter [facility] Operating Room [address] [place] [address] [place] [address] [address] 03/10/2025 9:00 AM CDT - 03/10/2025 10:15 AM CDT Surgery [facility] Operating Room [address] [place] [address] [place] [address] [place] [address] PERIPHERAL NERVE EVALUATION TRIAL Scheduled Procedures Name [...] on filedocumented in this encounter Care Teams Route Salesman And Driver Relationship Specialty Start Date End Date Lucio Oliveira MD PCP - General 07/02/19 Lucio Oliveira MD Family Medicine 07/02/19 documented as of this encounter
== END 2025-03-06 10:05 | disposition home or self-care (01) ==
LOC: ANHLAB 10:06
PROVIDERS: PCP Family Medicine; Visit Provider Internal Medicine Critical Care Medicine
DX: J44.0 Chronic obstructive pulmonary disease with (acute) lower respiratory infection (principal); J47.9 Bronchiectasis, uncomplicated
CPT/HCPCS: 87070; 87116; 87205; 87206

== ENCOUNTER 2025-03-07 10:42 | Outpatient (NON) | payer MEDICARE, SELFPAY ==
--- OUTSIDE RECORDS SUMMARY | 2025-03-07 10:44 | XMS_ITS | Clinical Summary ---
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 [address] PCP - General Family Practice 10/21/18
--- OUTSIDE RECORDS SUMMARY | 2025-03-07 10:45 | XMS_ITS | Clinical Summary ---
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 Assessment & Plan (06/07/2018 1:52 PM TRANSPORTATION LEAD): Obesity is improving with lifestyle modifications. Discussed [...] hours. Assessment & Plan (06/30/2019 1:53 PM TRANSPORTATION LEAD): He will wear his VPAP auto nightly [...] set at 22/14 cm water pressure to [facility] for repair replace. Machine needs to [...] titration. Assessment & Plan (06/07/2018 1:52 PM TRANSPORTATION LEAD): He will wear his bilevel machine nightly [...] bedtime. Assessment & Plan (06/07/2018 1:52 PM TRANSPORTATION LEAD): He will try to practice good sleep [...] bedtime. Assessment & Plan (06/30/2019 1:54 PM TRANSPORTATION LEAD): He will take clonazepam 2 mg every [...] Description 01/13/2025 2:15 PM CDT Office Visit [facility]iology at [address] [place] [address] Heber Alvarado MD Persistent atrial fibrillation (HCC) (Primary Dx) 12/09/2024 Telephone [facility] [address] [place] [address] Heber Alvarado MD Med Refill [...] on file Legal Sex Male 2:18 AM TRANSPORTATION LEAD Gender Identity Not on file Sexual Orientation [...] Description 03/10/2025 9:00 AM CDT Hospital Encounter [facility] Operating Room 1 [place] [address] [place] [address] [place] [address] 03/10/2025 9:00 AM CDT - 03/10/2025 10:15 AM CDT Surgery [facility] Operating Room 1 [place] [address] [place] [address] [place] [address] PERIPHERAL NERVE EVALUATION TRIAL Scheduled Procedures Name [...] 08/07/2017, 03/2016 Medical Devices Implanted Type Area Radio Frequency Design Engineer Device Identifier Shelf Expiration Date Model / Serial / Lot [employer] Maximo Stent Ureteral Set Double Pigtail Tapered Tip Contour [id number] Hydroplus Coated [id number] - [id number] Implanted:Qty: 1 on 12/02/2024 by Sherice Santos MD at [facility] Right: Ureter [employer] Maximo 06/18/2027 [id number] / / [id number] Insurance AETNA MEDICARE AETNA MEDICARE AETNA MEDICARE Care Teams Loan Manager Relationship Specialty Start Date End Date Lucio Oliveira MD PCP - General 07/02/19 Lucio Oliveira MD Family Medicine 07/02/19
--- OUTSIDE RECORDS SUMMARY | 2025-03-07 10:45 | XMS_ITS | Continuity of Care Document ---
Author Organization [facility] Address [address] [place] [address] Phone Care Team Providers Care Sales Department Clerk Name Role Phone Rebecca Rowland Unavailable Unavailable Procedures Procedure Date Eye Exam, New Patient Refraction Advance Directives Directive Yes / No Effective Date File Name No Information Encounters Encounter Description Practice Location Reason(s) For Visit Diagnoses Date Provider Providers Copied on Encounter [facility], [address], [place], [place], [id number], [place] tel:[phone] [facility] No Information 0-201 0 Janett Fernandez. [address] , [address], [place], [address], [place]. tel:[phone] Family History Family Member Type Diagnosis Age At Onset No Information Payers Payer name Insurance type Covered alliance party ID Authoryamilaa shereeneeraj(s) [employer] Vision Plan [id number] Social History Type Description Quantity Date Captured [...]
--- OUTSIDE RECORDS SUMMARY | 2025-03-07 10:45 | XMS_ITS | Patient Health Record ---
Author Organization [facility] [employer] Address [address] [place] [address] Care Team Providers Care Sales Contract Administrator Name Role Phone TAMMIE JOSEPH MD Primary Care Provider Unavail able Nancy Paige Unavailable [phone] GOKUL CARNEY Unavailable Unavailable Anastasia Seweney Unavailable [phone] Allergies Allergen (clinical drug ingredient) Drug/Non Drug [...] Oxazepam (BZO) n 0 - 300 ng/ml 8-dwvwizlwcn-2,6-mvpbcwzm-2,3-diphenylpyrrolidine (AKBAR P) n 0 - 300 ng/ml Methamphetamine (MET) n 0 - 1000 ng/ml Methylenedioxymethamphetamine (MDMA) n 0 - 500 ng/ml Morphine (MOP 300/HYI5636) n 0 - 300 ng/ml Methadone (MTD) [...] DAILY Oral; Duration: 30 Days Not-Taking Ipratropium [place] 0.02 % INHALE 1 VIAL IN NEBULIZER [...] Tobacco use: Nonsmoker Section Notes: Lives in [place] with w hussein of 56 yrs, 2 kids. Grew up [place] [facility]. 6 siblings. Education/employment: Retired, worked at [employer] for 33 yrs, then worked at [employer]. service: 4 yrs [employer]. Lives in [place] with w hussein of 56 yrs, 2 kids. Grew up [place] [facility]. 6 siblings. Education/employment: Retired, worked at [employer] for 33 yrs, then worked at [employer]. service: 4 yrs [employer]. Lives in [place] with w hussein of 56 yrs, 2 kids. Grew up [place] [facility]. 6 siblings. Education/employment: Retired, worked at [employer] for 33 yrs, then worked at [employer]. service: 4 yrs [employer]. Problems Problem Type SNOMED Code ICD Code Onset Dates Problem Status W/U Status Risk Notes Problem Chronic insomnia (327228000) Chronic insomnia (F51.04) Active confirmed Problem Adjustment disorder (17128151) Adjustment disorder with other symptom (F43.29) Active confirmed Problem Obstructive sleep apnea syndrome (11032581) KIRSTEN treated with BiPAP (G47.33) Active confirmed Problem Essential hypertension (44114813) Benign essential HTN (I10) Active confirmed Vital Signs Heart Rate 86 /min 02/13/2025 Height-cm 172.72 cm 02/13/2025 Blood pressure diastolic 90 mm Hg 02/13/2025 Weight-kg 127.91 kg 02/13/2025 Height 68 in 02/13/2025 Blood pressure systolic 186 mm Hg 02/13/2025 Weight 282 lbs 02/13/2025 BMI 42.87 kg/m2 02/13/2025 Encounters Encounter Location Date Provider Diagnosis [facility] [address] [address] 03/21/2024 Anastasia Sweeney Adjustment disorder with other symptom F43.29 ; Chronic insomnia F51.04 and KIRSTEN treated with BiPAP G47.[address] [address] 04/18/2024 Anastasia Patel Adjustment disorder with other symptom F43.29 ; Chronic insomnia F51.04 and KIRSTEN treated with BiPAP G47.[address] [address] 07/18/2024 Nancy Paige Adjustment disorder with other symptom F43.29 ; Chronic insomnia F51.04 and KIRSTEN treated with BiPAP G47.[address] [address] 09/16/2024 Nancy Paige Chronic insomnia F51.04 ; Adjustment disorder with other symptom F43.29 ; KIRSTEN treated with BiPAP G47.33 and Benign hypertension I10 [address] [address] 11/14/2024 Nancy Paige Adjustment disorder with other symptom F43.29 ; Chronic insomnia F51.04 ; KIRSTEN treated with BiPAP G47.33 ; Benign essential HTN I10 and Encounter for screening for depression Z13.[address] [address] 02/13/2025 Nancy Paige Chronic insomnia F51.04 ; Adjustment disorder with other symptom F43.29 ; KIRSTEN treated with BiPAP G47.33 and Benign essential HTN I10 [address] [address] 07/31/2024 Nancy Paige Adjustment disorder with other symptom F43.[address] [address] 09/17/2024 Nancy Paige Assessments Encounter Date Diagnosis [...] and management - Encourage follow-up with pulmologist/sle step down specialist for further evaluation and management Hypertension - Blood pressure reading high today - Does not check BP regularly at home Plan: - Encouraged purchase of a home blood pressure monitor - Follow up with cooperative education coordinator if evelated blood pressure persist - [...] and management - Encourage follow-up with pulmologist/sle step down specialist for further evaluation and management Hypertension - Blood pressure reading high today - Does not check BP regularly at home Plan: - Encouraged purchase of a home blood pressure monitor - Follow up with cooperative education coordinator if evelated blood pressure persist - [...] and management - Encourage follow-up with pulmologist/sle step down specialist for further evaluation and management Hypertension - Blood pressure reading high today - Does not check BP regularly at home Plan: - Encouraged purchase of a home blood pressure monitor - Follow up with cooperative education coordinator if evelated blood pressure persist - [...] and management - Encourage follow-up with pulmologist/sle step down specialist for further evaluation and management Hypertension - Blood pressure reading high today - Does not check BP regularly at home Plan: - Encouraged purchase of a home blood pressure monitor - Follow up with cooperative education coordinator if evelated blood pressure persist - [...] physician for hypertension management- Recommend follow-up with cooperative education coordinator NephrolithiasisAss essment: Patient reports kidney stones causing [...] PM, [address], [place], [address], Insurance Providers Payer Name Payer Address Payer Phone Subscriber Number Group Number Insured Name Patient Relationship to Insured Coverage Start Date Coverage End Date [employer] [address] [place] [phone] [id number] Danial Wilson Self - patient is the [...]
--- OUTSIDE RECORDS SUMMARY | 2025-03-07 10:45 | XMS_ITS | Encounter Summary ---
Author Organization [facility] Address [address] [place] [address] Care Team Providers Care Industrial Welder Name Role Phone Lucio Oliveira MD Primary Care Provider [phone] Encounter Details Date Type Department Care Team (Latest Contact Info) Description 12/18/2008 Outpatient Historical [facility] BRUNILDA Palacios, MD Pool NO ADDRESS ON FILE Other Degenerative Diseases of the Basal Ganglia Social History Tobacco Use Types Packs/Day Years Used Date Smoking Tobacco: Never Alcohol Use Standard Drinks/Week Comments No 0 (1 standard drink = 0.6 oz pur e alcohol) Sex and Gender Information Value Date Recorded Sex Assigned at Not on file 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 Gender Identity Not on file Sexual Orientation [...] TOTAL PROTEIN 6.9 6.3 - 8.6 g/dL [facility] POTASSIUM 4.6 3.5 - 4.9 mmol/L [facility] GLUCOSE 74 65 - 99 mg/dL [facility] AST 29 12 - 38 U/L [facility] BUN 15 6 - 20 mg/dL [facility] CALCIUM 9.6 8.6 - 10.2 mg/dL [facility] CHLORIDE 101 96 - 108 mmol/L [facility] ALBUMIN 4.2 3.4 - 4.8 g/dL [facility] CREATININE 1.12 0.67 - 1.17 mg/dL [facility] SODIUM 138 135 - 145 mmol/L [facility] ALT 31 0 - 41 U/L [facility] ALKALINE PHOSPHATASE 75 40 - 129 U/L [facility] BILIRUBIN TOTAL 0.5 0.2 - 1.0 mg/dL [facility] CO2 27 22 - 30 mmol/L [facility] GFR, >60 >=60 mL/min/1.7 sq meter [facility] GFR >60 >=60 mL/min/1.7 sq meter [facility] Comment: Modification of Diet in Renal Disease (MDRD) study formula. Estimated GFR rate interpretative information for both Americans and non- Americans is available on the [facility] Intranet at: [email or web address] [facility]: Lab Policies and Procedures [facility]: Reference Ranges - GFR 12/18/2008 1:49 PM CDT 12/18/2008 3:00 PM CDT us Pool Palacios MD CHEMISTRY ORDERABLES Edited INTERFACE SYSTEM Refer to clinic/hospital department [facility] CLIA# [id number] [address] [place] [address] * (ABNORMAL) CBC WITH DIFFERENTIAL (12/18/2008 1:49 PM CDT) MCV 100.8(H) 82.0 - 99.0 fL [facility] PLATELETS 245 140 - 350 K/uL [facility] HEMOGLOBIN 17.1(H) 13.6 - 16.5 g/dL [facility] RDW 13.8 11.5 - 14.5 % [facility] WBC 6.5 4.0 - 9.8 K/uL [facility] MCH 34.5(H) 27.2 - 32.6 pg [facility] MPV 11.3 9.3 - 12.4 fL [facility] HEMATOCRIT 50.0(H) 40.0 - 48.0 % [facility] RDW-STDEV 50.9(H) 37.1 - 48.7 fL [facility] RBC 4.96 4.50 - 5.40 M/uL [facility] MCHC 34.2 31.5 - 35.5 % [facility] NEUTROPHILS 60 45 - 70 % [facility] NEUTROPHIL ABSOLUTE 3.88 1.90 - 7.00 K/uL [facility] EOSINOPHILS 3 0 - 7 % [facility] EOSINOPHIL ABSOLUTE 0.19 0.00 - 0.70 K/uL [facility] LYMPHOCYTES 27 16 - 45 % [facility] LYMPHOCYTE ABSOLUTE 1.76 0.70 - 4.50 K/uL [facility] BASOPHILS 1 0 - 2 % [facility] BASOPHILS ABSOLUTE 0.06 0.00 - 0.20 K/uL [facility] MONOCYTES 9 3 - 13 % [facility] MONOCYTE ABSOLUTE 0.59 0.10 - 1.30 K/uL [facility] 12/18/2008 1:49 PM CDT 12/18/2008 3:01 PM CDT us Pool Palacios MD HEMATOLOGY ORDERABLES Edited INTERFACE SYSTEM Refer to clinic/hospital department [facility] CLIA# [id number] [address] [place] [place] [address] documented in this encounter Visit Diagnoses Diagnosis Other degenerative diseases of the basal ganglia documented in this encounter Care Teams Industrial Welder Relationship Specialty Start Date End Date Lucio Oliveira MD [address] [place] [address] PCP - General Family Practice 10/21/18 documented as of this encounter
--- OUTSIDE RECORDS SUMMARY | 2025-03-07 10:45 | XMS_ITS | Clinical Summary ---
Author Organization [facility] Address [address] [place] [address] Phone Care Team Providers Care Leisure Travel Agent Name Role Phone Lucio Oliveira MD Primary Care Provider [phone] Allergies Active Allergy Reactions Criticality Noted Date [...] Completed 08/07/2017, 07/07/2016 Insurance AETNA Care Teams Leisure Travel Agent Relationship Specialty Start Date End Date Lucio Oliveira MD [address] [place] [address] PCP - General Family Medicine 10/16/18
--- OUTSIDE RECORDS SUMMARY | 2025-03-07 10:45 | XMS_ITS | Encounter Summary ---
Author Organization [facility] Address [address] [place] [address] Care Team Providers Care Vegetable Cook Name Role Phone Lucio Oliveira MD Primary Care Provider [phone] Lucio Oliveira MD Unavailable [phone] Encounter Details Date Type Department Care Team (Late st Contact Info) Description 09/08/2024 Orders Only [facility] Health Information Management [address] [place] [address] Nav Morejon MD [address] [facility] [address] [address] Social History Tobacco Use Types Packs/Day Years Used Date Smoking Tobacco: Never Alcohol Use Standard Drinks/Week Comments No 0 (1 standard drink = 0.6 oz pur e alcohol) Sex and Gender Information Value Date Recorded Sex Assigned at Not on file 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 Gender Identity Not on file Sexual Orientation Not on file documented as of this encounter Plan of Treatment Upcoming Encounters Date Type Department Care Team (Latest Contact Info) Description 03/10/2025 9:00 AM CDT Hospital Encounter [facility] Operating Room 1 [place] [address] [place] [address] [address] 03/10/2025 9:00 AM CDT - 03/10/2025 10:15 AM CDT Surgery [facility] Operating Room 1 [place] [address] [place] [address] [place] [address] PERIPHERAL NERVE EVALUATION TRIAL Scheduled Procedures Name [...] on filedocumented in this encounter Care Teams Vegetable Cook Relationship Specialty Start Date End Date Lucio Oliveira MD PCP - General 07/02/19 Lucio Oliveira MD Family Medicine 07/02/19 documented as of this encounter
== END 2025-03-07 10:43 | disposition home or self-care (01) ==
LOC: ANHLAB 10:43
PROVIDERS: PCP Family Medicine; Visit Provider Internal Medicine Critical Care Medicine
DX: J44.0 Chronic obstructive pulmonary disease with (acute) lower respiratory infection (principal); J47.9 Bronchiectasis, uncomplicated
CPT/HCPCS: 87070; 87116; 87205; 87206

== ENCOUNTER 2025-03-26 13:25 | Outpatient (CLI) | payer MEDICARE, SELFPAY ==
--- NOTE | ~2025-03-26 | XR_ITS ---
XR chest 2V 03/26/2025 13:42 Indication: Shortness of breath Procedure: 2 view chest Comparison: 11/24/2024 Findings: Diffuse bilateral airspace disease. Elevated right diaphragm. Borderline heart size. No acute osseous abnormality. No pneumothorax. Impression: 1: Diffuse bilateral airspace disease may represent edema or pneumonia. Reviewed, dictated and finalized at location O. Impression: 1: Diffuse bilateral airspace disease may represent edema or pneumonia.
== END 2025-03-26 13:26 | disposition home or self-care (01) ==
LOC: MICIMG 13:26
PROVIDERS: PCP Family Medicine; Visit Provider Internal Medicine Critical Care Medicine
DX: R06.02 Shortness of breath (principal); R91.8 Other nonspecific abnormal finding of lung field
CPT/HCPCS: 71046

== ENCOUNTER 2025-05-04 11:40 | Outpatient (NON) | payer MEDICARE, SELFPAY ==
--- OUTSIDE RECORDS SUMMARY | 2025-05-04 13:08 | XMS_ITS | Clinical Summary ---
Author Organization [facility] Address [address] [place] [address] Phone Care Team Providers Care Aquatic Facility Manager Name Role Phone Lucio Oliveira MD Primary Care Provider [phone] Allergies Active Allergy Reactions Criticality Noted Date [...] Completed 08/07/2017, 07/07/2016 Insurance A[employer] Care Teams Aquatic Facility Manager Relationship Specialty Start Date End Date Lucio Oliveira MD [address] [place] [address] PCP - General Family Medicine 10/16/18
--- OUTSIDE RECORDS SUMMARY | 2025-05-04 13:08 | XMS_ITS | Patient Health Record ---
Author Organization [facility] [employer] Address [address] [place] [address] Care Team Providers Care Baker Paint Name Role Phone TAMMIE JOSEPH MD Primary Care Provider Unavail able Nancy Paige Unavailable [phone] GOKUL CARNEY Unavailable Unavailable Allergies Allergen (clinical drug ingredient) Drug/Non Drug Allergy documented on EMR Reaction Allergy Type Onset Date Status codeine Codeine Unknown Drug Allergy Active methylprednisolone Methylprednisolone Unknown Drug Allergy Active prednisone Prednisone Unknown Drug Allergy Activ e Reason For Referral No Information Medications Medication SIG (Take, Route, Frequency, Duration) Notes Start Date End Date Status Ketorolac Tromethamine 10 MG Tablet Oral; Duration: 5 Days Not-Taking Sotalol HCl 80 MG Tablet TAKE 1 TABLET B Y MOUTH EVERY 12 HOURS Oral; Duration: 30 Days Not-Taking Balsalazide Disodium 750 MG Capsule Oral; Duration: 90 Days Not-Taking Ketorolac Tromethamine 10 MG Tablet TAKE 1 TABLET BY MOUTH EVERY 6 HOURS NEEDED Oral; Duration: 5 Days Not-Taking Lidocaine 5 % Patch 1 patch remove after 12 hours Externally Once a day Active Aspirin 81 81 MG Tablet Delayed Release 1 tablet Orally Once a day Active Trelegy Ellipta 100-62.5-25 MCG/ACT Aerosol Powder Breath Activated 1 puff Inhalation Once a day Active Empagliflozin 10 MG Tablet 1 tablet Oral ly Once a day Active Potassium Chloride 20 MEQ Packet 1 packet with food Orally Once a day Active Balsalazide Disodium 750 MG Capsule 2 capsules Orally Twice a day Active Roflumilast 250 MCG Tablet TAKE 1 TABLET BY MOUTH ONCE DAILY FOR 4 WEEKS Oral; Duration: 28 Days Not-Taking Roflumilast 500 MCG Tablet TAKE 1 TABLET BY MOUTH ONCE DAILY Oral; Duration: 30 Days Not-Taking Ipratropium Reydon 0.02 % Solution INHALE 1 VIAL IN NEBULIZER THREE TIMES DAILY NEEDED FOR SHORTNESS OF BREATH FOR WHEEZING FOR 1 MONTH (USE IN THE NEBULIZER WITH ALBUTEROL) Inhalation; Duration: 24 Days Not-Taking Roflumilast 250 MCG Tablet Oral; Duratio n: 28 Days Not-Taking Pregabalin 75 MG Capsule 1 capsule in e evening 1 to 3 hours before bedtime Orally Once a day Active HYDROcodone-Acetaminophen 5-325 MG Tablet Oral; Duration: 3 Days Not-Taking Cholecalciferol 100 MCG (4000 UT) Tablet 1 tablet Orally Once a day Active Vitamin D 50 MCG (2000 UT) Tablet 1 tablet Orally Once a day Active Albuterol Sulfate (2.5 MG/3ML) 0.083% Nebulization Solution Inhalation; Duration: 30 Days Not-Taking Lysine 1000 MG Tablet as directed Orally Active HYDROcodone-Acetaminophen 5-325 MG Tablet TAKE 1 TO 2 TABLETS BY MOUTH EVERY 6 HOURS NEEDED Oral; Duration: 3 Days Not-Taking clonazePAM 0.5 MG Tablet TAKE ONE-HALF T ABLET BY MOUTH EVERY DAY AT BEDTIME ADMINISTER 30 MINUTES BEFORE BEDTIME Oral; Duration: 30 Days Not-Taking Metoprolol Tartrate 25 MG Tablet TAKE 1 TABLET BY MOUTH TWICE DAILY Oral; Duration: 90 Days Not-Taking Amoxicillin 875 MG Tablet TAKE 1 TABLET BY MOUTH EVERY 12 HOURS FOR 5 DAYS Oral; Duration: 5 Days Not-Taking Entresto 49-51 MG Tablet Oral; Duration: 90 Days Active Eliquis 5 MG Tablet Oral; Duration: 90 Days Active Klor-Con M20 20 MEQ Tablet Extended Release Oral; Duration: 90 Days Active Jardiance 10 MG Tablet Oral; Duration: 9 0 Days Active Ferrous Sulfate 325 (65 Fe) MG Tablet 1 tablet Orally Three times a Week Active traZODone HCl 100 MG Tablet Oral; Durati on: 30 Days Active Multivitamin - Tablet 1 tablet Orally On ce a day Active Sertraline HCl 25 MG Tablet Take 1 table t by mouth once daily; Duration: 30 days Active Albuterol Sulfate HFA 108 (90 Base) MCG/ACT Aerosol Solution INHALE 2 PUFFS BY MOUTH EVERY 4 HOURS NEEDED FOR SHORTNESS OF BREATH OR WHEEZING Inhalation; Duration: 17 Days Active Omeprazole 20 MG Capsule Delayed Release Oral; Duration: 90 Days Active traMADol HCl 50 MG Tablet TAKE 1 TABLET BY MOUTH TWICE DAILY FOR PAIN Oral; Duration: 15 Days Active Rosuvastatin Calcium 20 MG Tablet Oral; Duration: 90 Days Active Albuterol Sulfate (2.5 MG/3ML) 0.083% Nebulization Solution Inhalation; Duration: 5 Days Active Furosemide 40 MG Tablet Oral; Duration: 90 Days Active Docusate Sodium 100 MG Capsule TAKE 1 CAPSULE BY MOUTH ONCE DAILY NEEDED FOR CONSTIPATION Oral; Duration: 30 Days Active Pramipexole Dihydrochloride 1 MG Tablet Oral; Duration: 90 Days Active Roflumilast 500 MCG Tablet Oral; Duratio n: 90 Days Active Tamsulosin HCl 0.4 MG Capsule TAKE 1 CAPSULE BY MOUTH AT BEDTIME Oral; Duration: 90 Days Active Sotalol HCl 80 MG Tablet Oral; Duration: 90 Days Active Sertraline HCl 25 MG Tablet Take 1 table t by mouth once daily; Duration: 30 Active Spironolactone 25 MG Tablet Oral; Durati on: 90 Days Active methylPREDNISolone 4 MG Tablet Therapy Pack Oral; Duration: 6 Days Not-Taking Eszopiclone 1 MG Tablet Oral; Duration: 1 Days Not-Taking predniSONE 10 MG Tablet Oral; Duration: 12 Days Not-Taking predniSONE 10 MG Tablet TAKE 4 TABLETS D AILY FOR 3 DAYS IN THE MORNING WITH FOOD, DECREASED BY 1 TAB EVERY 3 DAYS UNTIL COMPLETED Oral; Duration: 12 Days Not-Taking Eszopiclone 1 MG Tablet TAKE 1 TABLET BY MOUTH AT BEDTIME AT SLEEP LAB IF NEEDED AT THE START OF THE TEST DO NOT TAKE AT HOME Oral; Duration: 1 Days Not-Taking methylPREDNISolone 4 MG Tablet Therapy Pack Oral; Duration: 6 Days Not-Taking Social History Tobacco Use: Social History Observation Description Date Details (start date - stop date) Never Smoker NA - NA Sex Assigned At : Social History Observation Description Sex Assigned At Male Social History Tobacco Use: Social Info Question Answer Notes Tobacco Control (Standard) Tobacco use: Nonsmoker Section Notes: Lives in [place] with w hussein of 56 yrs, 2 kids. G[place] up [facility]. 6 siblings. Education/employment: Retired, worked at [employer] for 33 yrs, then worked at [employer]. service: 4 yrs [employer]. Lives in [place] with w hussein of 56 yrs, 2 kids. Grew up [facility]. 6 siblings. Education/employment: Retired, worked at [employer] for 33 yrs, then worked at [employer]. service: 4 yrs [employer]. Lives in [place] with w hussein of 56 yrs, 2 kids. Grew up [place] [facility]. 6 siblings. Education/employment: Retired, worked at [employer] for 33 yrs, then worked at [employer]. service: 4 yrs [employer]. Problems Problem Type SNOMED Code ICD Code Onset Dates Problem Status W/U Status Risk Notes Problem Chronic insomnia (335355130) Chronic insomnia (F51.04) Active confirmed Problem Adjustment disorder (67971452) Adjustment disorder with other symptom (F43.29) Active confirmed Problem Obstructive sleep apnea syndrome (75357477) KIRSTEN treated with BiPAP (G47.33) Active confirmed Problem Essential hypertension (42728651) Benign essential HTN (I10) Active confirmed Vital Signs Heart Rate 86 /min 02/13/2025 Height-cm 172.72 cm 02/13/2025 Blood pressure diastolic 90 mm Hg 02/13/2025 Weight-kg 127.91 kg 02/13/2025 Height 68 in 02/13/2025 Blood pressure systolic 186 mm Hg 02/13/2025 Weight 282 lbs 02/13/2025 BMI 42.87 kg/m2 02/13/2025 Encounters Encounter Location Date Provider Diagnosis [facility] [employer] [address] [place] [address] [address] 07/18/2024 Nancy Paige Adjustment disorder with other symptom F43.29 ; Chronic insomnia F51.04 and KIRSTEN treated with BiPAP G47.33 [facility] [place] [facility] [address] [facility] [address] [address] 09/16/2024 Nancy Paige Chronic insomnia F51.04 ; Adjustment disorder with other symptom F43.29 ; KIRSTEN treated with BiPAP G47.33 and Benign hypertension I10 [facility] [address] [facility] [address] [address] 11/14/2024 Nancy Paige Adjustment disorder with other symptom F43.29 ; Chronic insomnia F51.04 ; KIRSTEN treated with BiPAP G47.33 ; Benign essential HTN I10 and Encounter for screening for depression Z13.31 [facility] [employer] [address] [facility] [address] [address] 02/13/2025 Nancy Cainzahira Chronic insomnia F51.04 ; Adjustment disorder with other symptom F43.29 ; KIRSTEN treated with BiPAP G47.33 and Benign [facility] [address] [place] [address] 07/31/2024 Nancy Cainzahira Adjustment disorder with other symptom F43.29 [facility] [address] [place] [address] 09/17/2024 Nancy Paige Assessments Encounter Date Diagnosis [...] and management - Encourage follow-up with pulmologist/sle data report analyst for further evaluation and management Hypertension - Blood pressure reading high today - Does not check BP regularly at home Plan: - Encouraged purchase of a home blood pressure monitor - Follow up with formula maker if evelated blood pressure persist - Encouraged to go to urgent care of ER if chest pain develops or concerns symptoms arise Follow-up in 2 months, sooner if concerns arise 11/14/2024 Chronic insomnia (ICD-10 - F51.04) 11/14/2024 Adjustment disorder with other symptom (ICD-10 - F43.29) 07/18/2024 Adjustment disorder with other symptom (ICD-10 [...] mental health status after discontinuing Sertraline 11/14/2024 KIRSTEN treated with BiPAP (ICD-10 - [...] and management - Encourage follow-up with pulmologist/sle data report analyst for further evaluation and management Hypertension - Blood pressure reading high today - Does not check BP regularly at home Plan: - Encouraged purchase of a home blood pressure monitor - Follow up with formula maker if evelated blood pressure persist - Encouraged [...] and management - Encourage follow-up with pulmologist/sle data report analyst for further evaluation and management Hypertension - Blood pressure reading high today - Does not check BP regularly at home Plan: - Encouraged purchase of a home blood pressure monitor - Follow up with formula maker if evelated blood pressure persist - Encouraged [...] and management - Encourage follow-up with pulmologist/sle data report analyst for further evaluation and management Hypertension - Blood pressure reading high today - Does not check BP regularly at home Plan: - Encouraged purchase of a home blood pressure monitor - Follow up with formula maker if evelated blood pressure persist - Encouraged [...] mental health status after discontinuing Sertraline 02/13/2025 KIRSTEN treated with BiPAP (ICD-10 - [...] physician for hypertension management- Recommend follow-up with formula maker NephrolithiasisAss essment: Patient reports kidney stones causing [...] Treatment Next Appt Details Provider Name:Nancy almeida, 05/15/2025 01:15:00 PM, [address], [address], [place], [address], Insurance Providers Payer Name Payer Address Payer Phone Subscriber Number Group Number Insured Name Patient Relationship to Insured Coverage Start Date Coverage End Date [employer] [address] [place]IG[place] SANTOS [phone] [id number] Danial Wilson Self - patient is the [...]
--- OUTSIDE RECORDS SUMMARY | 2025-05-04 13:08 | XMS_ITS | Encounter Summary ---
Author Organization [facility] Healthcare Address [address] [place] [address] Care Team Providers Care Therapeutic Sales Specialist Name Role Phone Lucio Oliveira MD Primary Care Provider [phone] Lucio Oliveira MD Unavailable [phone] Encounter Details Date Type Department Care Team (Late st Contact Info) Description 09/08/2024 Orders Only [facility] [place] Information Management [address] [place] [id number] Nav Morejon MD [address] [facility] [address] [place] [address] Social History Tobacco Use Types Packs/Day Years Used Date Smoking Tobacco: Never Alcohol Use Standard Drinks/Week Comments No 0 (1 standard drink = 0.6 oz pur e alcohol) Sex and Gender Information Value Date Recorded Sex Assigned at Not on file Legal Sex 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
--- OUTSIDE RECORDS SUMMARY | 2025-05-04 13:08 | XMS_ITS | Clinical Summary ---
Author Organization [address] Address [address] [place] [address] Care Team Providers Care Compliance Professional Name Role Phone Lucio Oliveira MD Primary Care Provider [phone] Lucio Oliveira MD Unavailable [phone] Allergies Active Allergy Reactions Criticality Noted Date Comments Codeine Nausea & Vomiting High constipation Influen Tr-Split 2004 Vac (Pf) Rash Medium 09/18/2019 Methylprednisolone Nausea & Vomiting,Nausea And Vomiting High 07/13/2016 Medications omeprazole (PriLOSEC) 20 mg capsule 20 mg. 0 0 5 Active furosemide (LASIX) 40 mg tablet Take 1 tablet (40 mg total) by mouth daily 7 Active rosuvastatin (CRESTOR) 20 mg tablet Take 1 tablet (20 mg total) by mouth daily 9 Active potassium chloride ER (KLOR-CON) 20 mEq CR tablet Take 1 tablet (20 mEq total) by mouth as needed 9 Active balsalazide (COLAZAL) 750 mg capsule TAKE 3 CAPSULES TWICE A DAY 4 9 Active albuterol 2.5 mg /3 mL (0.083 %) nebulizer solution Take 3 mL (2.5 mg total) by nebulization 4 (four) times a day 9 Active multivitamin capsule daily Active cholecalciferol [...] TO BEDTIME 180 tablet 3 1 Active albuterol HFA (PROVENTIL HFA,VENTOLIN HFA,PROAIR HFA) 90 mcg/actuation inhaler 1 Active traZODone (DESYREL) 100 mg tabletIndicatio ns:Periodic limb movement disorder,Persis tent disorder of initiating or maintaining sleep Take 1-2 tablets every night at bedtime. 180 tablet 3 2 Active fluticasone-ume clidin-vilanter (Trelegy Ellipta) 100-62.5-25 mcg inhaler Inhale 1 puff daily Active spironolactone (ALDACTONE) 25 mg tablet Take 1 tablet (25 mg total) by mouth every morning 90 tablet 3 3 Active tamsulosin (FLOMAX) 0.4 mg extended release capsule Take 1 capsule (0.4 mg total) by mouth nightly 3 Active empagliflozin (JARDIANCE) 10 mg tablet Take 1 tablet (10 mg total) by mouth daily 90 tablet 3 4 Active roflumilast (DALIRESP) 500 mcg tablet 1 tablet (500 mcg total) daily 4 Active lysine 1,000 mg tablet Take by mouth 0 Active sertraline (ZOLOFT) 25 mg tablet Take 1 tablet (25 mg total) by mouth daily Active docusate sodium (COLACE) 100 mg capsuleIndicati ons:constipatio n Take 1 capsule (100 mg total) by mouth 2 (two) times a day as needed for constipation Active sacubitriL-vals chayito (ENTRESTO) 49-51 mg tabletIndicatio ns:chronic heart failure Take 1 tablet by mouth 2 (two) times a day 180 tablet 5 Active traMADoL (ULTRAM) 50 mg tablet Take 1 tablet (50 mg total) by mouth every 6 (six) hours as needed for pain 10 tablet 5 Active apixaban (ELIQUIS) 5 mg tablet Take 1 tablet (5 mg total) by mouth 2 (two) times a day 180 tablet 3 5 Active sotaloL (BETAPACE) 80 mg tabletIndicatio ns:Atrial flutter, unspecified type (HCC) TAKE 1 TABLET EVERY 12 HOURS DISCONTINUE METOPROLOL 180 tablet 3 5 Active pregabalin (LYRICA) 75 mg capsuleIndicati ons:Restless Legs Syndrome Take 1 capsule (75 mg total) by mouth 2 (two) times a day 5 5 Active Active Problems Problem Noted Date Diagnosed [...] II 08/09/2021 Coronary artery disease invo lving teller coronary artery of teller heart without angina pectoris 08/09/2021 Cough productive [...] 10/19/2017 Assessment & Plan (06/30/2019 1:54 PM 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 Assessment & Plan (06/07/2018 1:52 PM MASTER MOTORCYCLE TECHNICIAN): Obesity is improving with lifestyle modifications. Discussed [...] hours. Assessment & Plan (06/30/2019 1:53 PM MASTER MOTORCYCLE TECHNICIAN): He will wear his VPAP auto nightly [...] set at 22/14 cm water pressure to [facility] for repair replace. Machine needs [...] titration. Assessment & Plan (06/07/2018 1:52 PM MASTER MOTORCYCLE TECHNICIAN): He will wear his bilevel machine nightly [...] bedtime. Assessment & Plan (06/07/2018 1:52 PM MASTER MOTORCYCLE TECHNICIAN): He will try to practice good sleep [...] bedtime. Assessment & Plan (06/30/2019 1:54 PM MASTER MOTORCYCLE TECHNICIAN): He will take clonazepam 2 mg every [...] Encounters Date Type Department Care Team Description 03/10/2025 9:00 AM CDT - 03/10/2025 10:15 AM CDT Surgery [facility] Operating Room [address] [place] [address] Sherice Santos MD PERIPHERAL NERVE EVALUATION TRIAL 03/10/2025 8:51 AM CDT Anesthesia Event [facility] Operating [address] [place] [address] Ander Major, 03/10/2025 6:59 AM CDT - 03/10/2025 10:16 AM CDT Hospital Encounter [facility] [address] [place] [address] Sherice Santos MD Overactive bladder (Primary Dx) Discharge Disposition: Discharge to home or self care from Last 3 Months Immunizations Immunization Administration [...] making you feel afraid or unsafe? Denies 03/10/2025 Sex and Gender Information Value Date Recorded Sex Assigned at Not on file Legal Sex Male 2:18 AM MASTER MOTORCYCLE TECHNICIAN Gender Identity Not on file Sexual Orientation Not on file Obstetrics History Last Filed Vital Signs Vital Sign Reading Time Taken Comments Blood Pressure 172/82 03/10/2025 10:11 AM CDT Pulse 55 03/10/2025 10:11 AM CDT Temperature 36.3 C (97.3 F) 03/10/2025 10:11 AM CDT Respiratory Rate 18 03/10/2025 10:1 1 AM CDT Oxygen Saturation 96% 03/10/2025 10: 11 AM CDT Inhaled Oxygen Concentration - - Weight 127.6 kg (281 lb 4.9 oz) 03/10/2025 7:16 AM CDT Height 172.7 cm (5' 8) 03/10/2025 7:16 AM CDT Body Mass Index 42.77 03/10/2025 7:16 AM CDT Plan of Treatment Health Maintenance Due Date Last Done Comments Depression Screening 1945 DTaP/Tdap/Td Vaccine (1 - Tdap) 12/27/1956 Hepatitis B Screening 1962 Well Visit 65+ 2009 Zoster Vaccine (2 of 2) 07/30/2020 06/04/2020 Influenza Vaccine (#1) 2025 , 04/29/2019, 04/29/2018 Fall Risk Assessment 02/09/2026 02/09/2025 Pneumococcal vaccine 65+ Completed 08/07/2017, 1203/2016 Medical Devices Implanted Type Area Tire Beader Maker Device Identifier Shelf Expiration Date Model / Serial / Lot [employer] Maximo Stent Ureteral Set Double Pigtail Tapered Tip Contour [id number] Hydroplus Coated [id number] - [id number] Implanted:Qty: 1 on 12/02/2024 by Sherice Santos MD at [facility] Right: Ureter [employer] Maximo 06/18/2027 [id number] / / [id number] Med[employer] Kit Lead Neurostimulator Urinary Control Sacral Test Interstim [id number] - [id number] Implanted:Qty: 1 on 03/10/2025 by Sherice Santos MD at [facility] [employer] 05/20/2026 [id number] / / [employer] Lead Neurostimulator Urinary Control Sacral Test Interstim [id number] - [id number] Implanted:Qty: 1 on 03/10/2025 by Sherice Santos MD at [facility] [employer] 10/29/2026 [id number] / / Procedures Procedure Name Priority Date/Time Associated Diagnosis Comments XR SACRUM COCCYX 2 OR MORE VIEWS IP Routine 03/10/2025 9:30 AM CDT FL FLUOROSCOPY < 1 HOUR IP Routine 03/10/2025 9:30 AM CDT Overactive bladder REPROGRAM SIMPLE NEUROSTIMULATOR 03/10/2025 8:51 AM CDT Overactive bladder Special Needs [employer] DEVICE & REP from Last 3 Months Results * FL Fluoroscopy < 1 Hour (03/10/2025 9:30 AM CDT) Narrative [facility] - 03/10/2025 9:30 AM CDT The images from this study are not interpreted by Radiology. Please refer to the physician's procedure / OR operative note. Sherice Landa MD IMG FLUOROSCOPY PROCEDURES Fin al Result [facility] * XR Sacrum Coccyx 2 or More Views (03/10/2025 9:30 AM CDT) Anatomical Region Laterality Modality Pelvis, Body N/A Computed Radiogr aphy 03/16/2025 3:27 PM CDT Narrative 03/16/2025 3:28 PM CDT EXAM DESCRIPTION: 1. XR SACRUM COCCYX 2 OR MORE VIEWS REASON FOR STUDY: Sacrococcygeal pain. FINDINGS: Multiple fluoroscopic images consisting of a single view(s) submitted with comparison 10/02/2020 . Reference air kerma equals 4.92 mGy. Fluoroscopic images demonstrate an in progress instrumentation at the sacrum. IMPRESSION: 1. In progress sacral intervention. This can be correlated with surgical report. THIS IS AN ELECTRONICALLY VERIFIED FINAL REPORT 03/16/2025 3:28 PM - Electronically signed by Heber Cho M.D. MF: [id number] Report ID: [id number] Reading Location: [id number] Procedure Note Heber Cho MD - 03/16/2025 EXAM DESCRIPTION: 1. XR SACRUM COCCYX 2 OR MORE VIEWS REASON FOR STUDY: Sacrococcygeal pain. FINDINGS: Multiple fluoroscopic images consisting of a single view(s) submittedwith comparison 10/02/2020 . Reference air kerma equals 4.92 mGy. Fluoroscopic images demonstrate an in progress instrumentation at thesacrum. IMPRESSION: 1. In progress sacral intervention. This can be correlated withsurgical report. THIS IS AN ELECTRONICALLY VERIFIED FINAL REPORT 03/16/2025 3:28 PM - Electronically signed by Heber Cho M.D. MF: [id number] Report ID: [id number] Reading Location: [id number] [facility] XR PROCEDURES Final Result from Last 3 Months Insurance T MEDICARE MEDICARE AET MEDICARE Care Teams Compliance Professional Relationship Specialty Start Date End Date Lucio Oliveira MD PCP - General 07/02/19 Lucio Oliveira MD Family Medicine 07/02/19
--- OUTSIDE RECORDS SUMMARY | 2025-05-04 13:08 | XMS_ITS | Encounter Summary ---
Author Organization [facility] Address [address] [place] [address] Care Team Providers Care Manager Client Service Name Role Phone Lucio Oliveira MD Primary Care Provider [phone] Encounter Details Date Type Department Care Team (Latest Contact Info) Description 12/18/2008 Outpatient Historical HIS [facility] BRUNILDA Palacios, MD Pool NO ADDRESS ON FILE Other Degenerative Diseases of the Basal Ganglia Social History Tobacco Use Types Packs/Day Years Used Date Smoking Tobacco: Never Alcohol Use Standard Drinks/Week Comments No 0 (1 standard drink = 0.6 oz pur e alcohol) Sex and Gender Information Value Date Recorded Sex Assigned at Not on file 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 Gender Identity Not on file Sexual [...] TOTAL PROTEIN 6.9 6.3 - 8.6 g/dL [facility] POTASSIUM 4.6 3.5 - 4.9 mmol/L [facility] GLUCOSE 74 65 - 99 mg/dL [facility] AST 29 12 - 38 U/L [facility] BUN 15 6 - 20 mg/dL [facility] CALCIUM 9.6 8.6 - 10.2 mg/dL [facility] CHLORIDE 101 96 - 108 mmol/L [facility] ALBUMIN 4.2 3.4 - 4.8 g/dL [facility] CREATININE 1.12 0.67 - 1.17 mg/dL [facility] SODIUM 138 135 - 145 mmol/L [facility] ALT 31 0 - 41 U/L [facility] ALKALINE PHOSPHATASE 75 40 - 129 U/L [facility] BILIRUBIN TOTAL 0.5 0.2 - 1.0 mg/dL [facility] CO2 27 22 - 30 mmol/L [facility] GFR, >60 >=60 mL/min/1.7 sq meter [facility] GFR >60 >=60 mL/min/1.7 sq meter [facility] Comment: Modification of Diet in Renal Disease (MDRD) study formula. Estimated GFR rate interpretative information for both Americans and non- Americans is available on the [facility] Intranet at: [email or web address] Select: Lab Policies and Procedures Select: Reference Ranges - GFR 12/18/2008 1:49 PM CDT 12/18/2008 3:00 PM CDT us Pool Palacios MD CHEMISTRY ORDERABLES Edited INTERFACE SYSTEM Refer to clinic/hospital department [facility] CLIA# [id number] [address] [place] [address] * (ABNORMAL) CBC WITH DIFFERENTIAL (12/18/2008 1:49 PM CDT) MCV 100.8(H) 82.0 - 99.0 fL [facility] PLATELETS 245 140 - 350 K/uL [facility] HEMOGLOBIN 17.1(H) 13.6 - 16.5 g/dL [facility] RDW 13.8 11.5 - 14.5 % [facility] WBC 6.5 4.0 - 9.8 K/uL [facility] MCH 34.5(H) 27.2 - 32.6 pg [facility] MPV 11.3 9.3 - 12.4 fL [facility] HEMATOCRIT 50.0(H) 40.0 - 48.0 % [facility] RDW-STDEV 50.9(H) 37.1 - 48.7 fL [facility] RBC 4.96 4.50 - 5.40 M/uL [facility] MCHC 34.2 31.5 - 35.5 % [facility] NEUTROPHILS 60 45 - 70 % [facility] NEUTROPHIL ABSOLUTE 3.88 1.90 - 7.00 K/uL [facility] EOSINOPHILS 3 0 - 7 % [facility] EOSINOPHIL ABSOLUTE 0.19 0.00 - 0.70 K/uL [facility] LYMPHOCYTES 27 16 - 45 % [facility] LYMPHOCYTE ABSOLUTE 1.76 0.70 - 4.50 K/uL [facility] BASOPHILS 1 0 - 2 % [facility] BASOPHILS ABSOLUTE 0.06 0.00 - 0.20 K/uL [facility] MONOCYTES 9 3 - 13 % [facility] MONOCYTE ABSOLUTE 0.59 0.10 - 1.30 K/uL [facility] 12/18/2008 1:49 PM CDT 12/18/2008 3:01 PM CDT us Pool Palacios MD HEMATOLOGY ORDERABLES Edited INTERFACE SYSTEM Refer to clinic/hospital department [facility] CLIA# [id number] [address] [place] [place] [address] documented in this encounter Visit Diagnoses Diagnosis Other degenerative diseases of the basal ganglia documented in this encounter Care Teams Manager Client Service Relationship Specialty Start Date End Date Lucio Oliveira MD [address] [place] [address] PCP - General Family Practice 10/21/18 documented as of this encounter
--- OUTSIDE RECORDS SUMMARY | 2025-05-04 13:08 | XMS_ITS | Clinical Summary ---
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 [address] PCP - General Family Practice 10/21/18
== END 2025-05-04 11:41 | disposition home or self-care (01) ==
LOC: ANHLAB 11:41
PROVIDERS: PCP Family Medicine; Visit Provider Internal Medicine Critical Care Medicine
DX: J44.0 Chronic obstructive pulmonary disease with (acute) lower respiratory infection (principal)
CPT/HCPCS: 87101

== ENCOUNTER 2025-05-05 10:51 | Outpatient (NON) | payer MEDICARE, SELFPAY ==
--- OUTSIDE RECORDS SUMMARY | 2025-05-05 12:03 | XMS_ITS | Clinical Summary ---
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 [address] PCP - General Family Practice 10/21/18
--- OUTSIDE RECORDS SUMMARY | 2025-05-05 12:03 | XMS_ITS | Encounter Summary ---
Author Organization [facility] Address [address] [place] [address] Care Team Providers Care Academic Affairs Director Name Role Phone Lucio Oliveira MD Primary Care Provider [phone] Lucio Oliveira MD Unavailable [phone] Encounter Details Date Type Department Care Team (Late st Contact Info) Description 09/08/2024 Orders Only [facility] Health Information Management [address] [place] [address] Nav Morejon MD [address] [facility] [address] 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
--- OUTSIDE RECORDS SUMMARY | 2025-05-05 12:03 | XMS_ITS | Patient Health Record ---
Author Organization [facility] Address [address] [place] [address] Care Team Providers Care Owner Professional Engineer Name Role Phone TAMMIE JOSEPH MD Primary Care Provider Unavail able Nancy Paige Unavailable [phone] GOKUL CARNEY Unavailable Unavailable Allergies Allergen (clinical [...] DAILY Oral; Duration: 30 Days Not-Taking Ipratropium Dorsey 0.02 % Solution INHALE 1 VIAL IN [...] Tobacco use: Nonsmoker Section Notes: Lives in [place] with w hussein of 56 yrs, 2 kids. [address] up [facility]. 6 siblings. Education/employment: Retired, worked at [employer] for 33 yrs, then worked at [employer]. service: 4 yrs [employer]. Lives in [place] with w hussein of 56 yrs, 2 kids. Grew up [place] [facility]. 6 siblings. Education/employment: Retired, worked at [employer] for 33 yrs, then worked at [employer]. service: 4 yrs [employer]. Lives in [place] with w hussein of 56 yrs, 2 kids. Grew up [place] [facility]. 6 siblings. Education/employment: Retired, worked at [employer] for 33 yrs, then worked at [employer]. service: 4 yrs [employer]. Problems Problem Type SNOMED Code ICD Code Onset Dates Problem Status W/U Status Risk Notes Problem Chronic insomnia (869479644) Chronic insomnia (F51.04) Active confirmed Problem Adjustment disorder (60913545) Adjustment disorder with other symptom (F43.29) Active confirmed Problem Obstructive sleep apnea syndrome (72677711) KIRSTEN treated with BiPAP (G47.33) Active confirmed Problem Essential hypertension (09124610) Benign essential HTN (I10) Active confirmed Vital Signs Heart Rate 86 /min 02/13/2025 Height-cm 172.72 cm 02/13/2025 Blood pressure diastolic 90 mm Hg 02/13/2025 Weight-kg 127.91 kg 02/13/2025 Height 68 in 02/13/2025 Blood pressure systolic 186 mm Hg 02/13/2025 Weight 282 lbs 02/13/2025 BMI 42.87 kg/m2 02/13/2025 Encounters Encounter Location Date Provider Diagnosis [facility] [address] [place] [address] [address] 07/18/2024 Nancy Paige Adjustment disorder with other symptom F43.29 ; Chronic insomnia F51.04 and KIRSTEN treated with BiPAP G47.33 [facility] [address] [facility] [address] [address] 09/16/2024 Nancy Paige Chronic insomnia F51.04 ; Adjustment disorder with other symptom F43.29 ; KIRSTEN treated with BiPAP G47.33 and Benign hypertension I10 [facility] [address] [facility] [address] [address] 11/14/2024 Nancy Paige Adjustment disorder with other symptom F43.29 ; Chronic insomnia F51.04 ; KIRSTEN treated with BiPAP G47.33 ; Benign essential HTN I10 and Encounter for screening for depression Z13.31 [facility] [address] [facility] [address] [address] 02/13/2025 Nancy Cainzahira Chronic insomnia F51.04 ; Adjustment disorder with other symptom F43.29 ; KIRSTEN treated with BiPAP G47.33 and Benign essential HTN I10 [facility] [address] [place] [address] 07/31/2024 Nancy Cainzahira Adjustment disorder with other symptom F43.29 [facility] [address] [place] [address] 09/17/2024 Nancy Paige Assessments Encounter Date Diagnosis [...] and management - Encourage follow-up with pulmologist/sle health sciences department chair for further evaluation and management Hypertension - Blood pressure reading high today - Does not check BP regularly at home Plan: - Encouraged purchase of a home blood pressure monitor - Follow up with broomcorn grader if evelated blood pressure persist - Encouraged [...] and management - Encourage follow-up with pulmologist/sle health sciences department chair for further evaluation and management Hypertension - Blood pressure reading high today - Does not check BP regularly at home Plan: - Encouraged purchase of a home blood pressure monitor - Follow up with broomcorn grader if evelated blood pressure persist - Encouraged [...] and management - Encourage follow-up with pulmologist/sle health sciences department chair for further evaluation and management Hypertension - Blood pressure reading high today - Does not check BP regularly at home Plan: - Encouraged purchase of a home blood pressure monitor - Follow up with broomcorn grader if evelated blood pressure persist - Encouraged [...] and management - Encourage follow-up with pulmologist/sle health sciences department chair for further evaluation and management Hypertension - Blood pressure reading high today - Does not check BP regularly at home Plan: - Encouraged purchase of a home blood pressure monitor - Follow up with broomcorn grader if evelated blood pressure persist - Encouraged [...] physician for hypertension management- Recommend follow-up with broomcorn grader NephrolithiasisAss essment: Patient reports kidney stones causing [...] PM, [address], [place], [address], Insurance Providers Payer Name Payer Address Payer Phone Subscriber Number Group Number Insured Name Patient Relationship to Insured Coverage Start Date Coverage End Date [employer] [address] ABIGAIL SANTOS [phone] [id number] Danial Wilson Self - patient is the [...]
--- OUTSIDE RECORDS SUMMARY | 2025-05-05 12:03 | XMS_ITS | Clinical Summary ---
Author Organization [address] Address [address] [place] [address] Care Team Providers Care Network Relay Tester Name Role Phone Lucio Oliveira MD Primary Care Provider [phone] Lucio Oliveira MD Unavailable [phone] Allergies Active Allergy Reactions Criticality Noted Date [...] II 08/09/2021 Coronary artery disease invo lving [place] coronary artery of [place] heart without angina pectoris 08/09/2021 Cough productive [...] 10/19/2017 Assessment & Plan (06/30/2019 1:54 PM EDGING CATCHER): He will try to get 30 minutes [...] elevator. Assessment & Plan (06/07/2018 1:52 PM EDGING CATCHER): Obesity is improving with lifestyle modifications. Discussed [...] hours. Assessment & Plan (06/30/2019 1:53 PM EDGING CATCHER): He will wear his VPAP auto nightly [...] set at 22/14 cm water pressure to [facility] for repair replace. Machine needs to [...] titration. Assessment & Plan (06/07/2018 1:52 PM EDGING CATCHER): He will wear his bilevel machine nightly [...] bedtime. Assessment & Plan (06/07/2018 1:52 PM EDGING CATCHER): He will try to practice good sleep [...] bedtime. Assessment & Plan (06/30/2019 1:54 PM EDGING CATCHER): He will take clonazepam 2 mg every [...] - 03/10/2025 10:15 AM CDT Surgery [facility] Operating Room [address] [place] [address] Sherice Santos MD PERIPHERAL NERVE EVALUATION TRIAL 03/10/2025 8:51 AM CDT Anesthesia Event [facility] Operating Room [address] [place] [address] Ander Major, 03/10/2025 6:59 AM CDT - 03/10/2025 10:16 AM CDT Hospital Encounter [facility] Operating Room [address] [place] [address] Sherice Santos MD Overactive bladder (Primary Dx) [...] on file Legal Sex Male 2:18 AM EDGING CATCHER Gender Identity Not on file Sexual Orientation [...] 08/07/2017, 1203/2016 Medical Devices Implanted Type Area Belt Maker Helper Device Identifier Shelf Expiration Date Model / Serial / Lot [employer] Maximo Stent Ureteral Set Double Pigtail Tapered Tip Contour [id number] Hydroplus Coated [id number] - [id number] Implanted:Qty: 1 on 12/02/2024 by Sherice Santos MD at [facility] Right: Ureter [employer] Maximo 06/18/2027 [id number] / / [id number] [employer] Kit Lead Neurostimulator Urinary Control Sacral Test Interstim 000556 - [id number] Implanted:Qty: 1 on 03/10/2025 by Sherice Santos MD at [facility] [employer] 05/20/2026 [id number] / / [employer] Lead Neurostimulator Urinary Control Sacral Test Interstim [id number] - [id number] Implanted:Qty: 1 on 03/10/2025 by Sherice Santos MD at [facility] [employer] 10/29/2026 [id number] / / Procedures Procedure Name Priority Date/Time [...] Heber Cho M.D. MF: PEDRO Report ID: [id number] Reading Location: [id number] Procedure Note Heber Cho MD - 03/16/2025 [...] Heber Cho M.D. MF: PEDRO Report ID: [id number] Reading Location: [id number] [facility] IMG XR PROCEDURES Final Result from Last 3 Months Insurance T MEDICARE MEDICARE AET MEDICARE Care Teams Network Relay Tester Relationship Specialty Start Date End Date Lucio Oliveira MD PCP - General 07/02/19 Lucio Oliveira MD Family Medicine 07/02/19
--- OUTSIDE RECORDS SUMMARY | 2025-05-05 12:03 | XMS_ITS | Clinical Summary ---
Author Organization [facility] Address [address] [place] [address] Phone Care Team Providers Care Software Recruiter Name Role Phone Lucio Oliveira MD Primary Care Provider [phone] Allergies Active Allergy Reactions Criticality Noted Date [...] Completed 08/07/2017, 07/07/2016 Insurance AETNA Care Teams Software Recruiter Relationship Specialty Start Date End Date Lucio Oliveira MD [address] [place] [address] PCP - General Family Medicine 10/16/18
--- OUTSIDE RECORDS SUMMARY | 2025-05-05 12:03 | XMS_ITS | Encounter Summary ---
Author Organization [facility] Address [address] [place] [address] Care Team Providers Care Wood Craftsman Name Role Phone Lucio Oliveira MD Primary Care Provider [phone] Encounter Details Date Type Department Care Team (Latest Contact Info) Description 12/18/2008 Outpatient Historical HIS [facility] BRUNILDA Palacios, MD Pool NO ADDRESS ON FILE Other Degenerative Diseases of the Basal Ganglia Social History Tobacco Use Types Packs/Day Years Used Date Smoking Tobacco: Never Alcohol Use Standard Drinks/Week Comments No 0 (1 standard drink = 0.6 oz pur e alcohol) Sex and Gender Information Value Date Recorded Sex Assigned at Not on file 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8 g/dL [facility] CREATININE 1.12 0.67 - 1.17 mg/dL [facility] SODIUM 138 135 - 145 mmol/L [facility] ALT 31 0 - 41 U/[facility] ALKALINE PHOSPHATASE 75 40 - 129 U/L [facility] BILIRUBIN TOTAL 0.5 0.2 - 1.0 mg/dL [facility] CO2 27 22 - 30 mmol/L [facility] GFR, >60 >=60 mL/min/1.7 sq meter [facility] GFR >60 >=60 mL/min/1.7 sq meter [facility] Comment: Modification of Diet in Renal Disease (MDRD) study formula. Estimated GFR rate interpretative information for both Americans and non- Americans is available on the [facility] Intranet at: [email or web address] Select: Lab Policies and Procedures Select: Reference Ranges - GFR 12/18/2008 1:49 PM CDT 12/18/2008 3:00 PM CDT us Pool Palacios MD CHEMISTRY ORDERABLES Edited INTERFACE SYSTEM Refer to clinic/hospital department [facility] CLIA# [id number] [address] [place] [address] * (ABNORMAL) CBC WITH DIFFERENTIAL (12/18/2008 1:49 PM CDT) MCV 100.8(H) 82.0 - 99.0 fL [facility] PLATELETS 245 140 - 350 K/uL [facility] HEMOGLOBIN 17.1(H) 13.6 - 16.5 g/dL [facility] RDW 13.8 11.5 - 14.5 % [facility] WBC 6.5 4.0 - 9.8 K/uL [facility] MCH 34.5(H) 27.2 - 32.6 pg [facility] MPV 11.3 9.3 - 12.4 fL [facility] HEMATOCRIT 50.0(H) 40.0 - 48.0 % [facility] RDW-STDEV 50.9(H) 37.1 - 48.7 fL [facility] RBC 4.96 4.50 - 5.40 M/uL [facility] MCHC 34.2 31.5 - 35.5 % [facility] NEUTROPHILS 60 45 - 70 % [facility] NEUTROPHIL ABSOLUTE 3.88 1.90 - 7.00 K/uL [facility] EOSINOPHILS 3 0 - 7 % [facility] EOSINOPHIL ABSOLUTE 0.19 0.00 - 0.70 K/uL [facility] LYMPHOCYTES 27 16 - 45 % [facility] LYMPHOCYTE ABSOLUTE 1.76 0.70 - 4.50 K/uL [facility] BASOPHILS 1 0 - 2 % [facility] BASOPHILS ABSOLUTE 0.06 0.00 - 0.20 K/uL [facility] MONOCYTES 9 3 - 13 % [facility] MONOCYTE ABSOLUTE 0.59 0.10 - 1.30 K/uL [facility] 12/18/2008 1:49 PM CDT 12/18/2008 3:01 PM CDT us Polo Palacios MD HEMATOLOGY ORDERABLES Edited INTERFACE SYSTEM Refer to clinic/hospital department [facility] CLIA# [id number] [address] [place] [place] [address] documented in this encounter Visit Diagnoses Diagnosis Other degenerative diseases of the basal ganglia documented in this encounter Care Teams Wood Craftsman Relationship Specialty Start Date End Date Lucio Oliveira MD [address] [place] [address] PCP - General Family Practice 10/21/18 documented as of this encounter
== END 2025-05-05 10:52 | disposition home or self-care (01) ==
LOC: ANHLAB 10:54
PROVIDERS: PCP Family Medicine; Visit Provider Internal Medicine Critical Care Medicine
DX: J44.0 Chronic obstructive pulmonary disease with (acute) lower respiratory infection (principal)
CPT/HCPCS: 87101

== ENCOUNTER 2025-05-06 13:02 | Outpatient (NON) | payer MEDICARE, SELFPAY ==
--- OUTSIDE RECORDS SUMMARY | 2025-07-15 14:58 | XMS_ITS | Clinical Summary ---
Author Organization [facility] Address [address] [place] [address] Phone Care Team Providers Care Adult Literacy Teacher Name Role Phone Lucio Oliveira MD Primary Care Provider [phone] Allergies Active Allergy Reactions Criticality Noted Date [...] Take 20 mg by mouth daily . 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 [address] PCP - General Family Practice 10/21/18
--- OUTSIDE RECORDS SUMMARY | 2025-07-15 14:58 | XMS_ITS | Encounter Summary ---
Author Organization [facility] Address [address] [place] [address] Care Team Providers Care Cow Buyer Name Role Phone Lucio Oliveira MD Primary Care Provider [phone] Encounter Details Date Type Department Care Team (Latest Contact Info) Description 12/18/2008 Outpatient Historical HIS [facility] BRUNILDA Palacios, MD Pool NO ADDRESS ON FILE Other Degenerative Diseases of the Basal Ganglia Social History Tobacco Use Types Packs/Day Years Used Date Smoking Tobacco: Never Alcohol Use Standard Drinks/Week Comments No 0 (1 standard drink = 0.6 oz pur e alcohol) Sex and Gender Information Value Date Recorded Sex Assigned at Not on file 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 Gender Identity Not on file Sexual Orientation [...] TOTAL PROTEIN 6.9 6.3 - 8.6 g/dL [facility] POTASSIUM 4.6 3.5 - 4.9 mmol/L [facility] GLUCOSE 74 65 - 99 mg/dL [facility] AST 29 12 - 38 U/L [facility] BUN 15 6 - 20 mg/dL [facility] CALCIUM 9.6 8.6 - 10.2 mg/dL [facility] CHLORIDE 101 96 - 108 mmol/L [facility] ALBUMIN 4.2 3.4 - 4.8 g/dL [facility] CREATININE 1.12 0.67 - 1.17 mg/dL [facility] SODIUM 138 135 - 145 mmol/L [facility] ALT 31 0 - 41 U/L [facility] ALKALINE PHOSPHATASE 75 40 - 129 U/L [facility] BILIRUBIN TOTAL 0.5 0.2 - 1.0 mg/dL [facility] CO2 27 22 - 30 mmol/L [facility] GFR, >60 >=60 mL/min/1.7 sq meter [facility] GFR >60 >=60 mL/min/1.7 sq meter [facility] Comment: Modification of Diet in Renal Disease (MDRD) study formula. Estimated GFR rate interpretative information for both Americans and non- Americans is available on the [facility] Intranet at: [email or web address] Select: Lab Policies and Procedures Select: Reference Ranges - GFR 12/18/2008 1:49 PM CDT 12/18/2008 3:00 PM CDT us Pool Palacios MD CHEMISTRY ORDERABLES Edited INTERFACE SYSTEM Refer to clinic/hospital department [facility] CLIA# [id number] [address] [facility] [facility] [address] [address] [place], [place] [address] * (ABNORMAL) CBC WITH DIFFERENTIAL (12/18/2008 1:49 PM CDT) MCV 100.8(H) 82.0 - 99.0 fL [facility] PLATELETS 245 140 - 350 K/uL [facility] HEMOGLOBIN 17.1(H) 13.6 - 16.5 g/dL [facility] RDW 13.8 11.5 - 14.5 % [facility] WBC 6.5 4.0 - 9.8 K/uL [facility] MCH 34.5(H) 27.2 - 32.6 pg [facility] MPV 11.3 9.3 - 12.4 fL [facility] HEMATOCRIT 50.0(H) 40.0 - 48.0 % [facility] RDW-STDEV 50.9(H) 37.1 - 48.7 fL [facility] RBC 4.96 4.50 - 5.40 M/uL [facility] MCHC 34.2 31.5 - 35.5 % [facility] NEUTROPHILS 60 45 - 70 % [facility] NEUTROPHIL ABSOLUTE 3.88 1.90 - 7.00 K/uL [facility] EOSINOPHILS 3 0 - 7 % [facility] EOSINOPHIL ABSOLUTE 0.19 0.00 - 0.70 K/uL [facility] LYMPHOCYTES 27 16 - 45 % [facility] LYMPHOCYTE ABSOLUTE 1.76 0.70 - 4.50 K/uL [facility] BASOPHILS 1 0 - 2 % [facility] BASOPHILS ABSOLUTE 0.06 0.00 - 0.20 K/uL [facility] MONOCYTES 9 3 - 13 % [facility] MONOCYTE ABSOLUTE 0.59 0.10 - 1.30 K/uL [facility] 12/18/2008 1:49 PM CDT 12/18/2008 3:01 PM CDT us Pool Palacios MD HEMATOLOGY ORDERABLES Edited INTERFACE SYSTEM Refer to clinic/hospital department [facility] CLIA# [id number] [address] [place] [place] [address] documented in this encounter Visit Diagnoses Diagnosis Other degenerative diseases of the basal ganglia documented in this encounter Care Teams Cow Buyer Relationship Specialty Start Date End Date Lucio Oliveira MD [address] [place] [address] PCP - General Family Practice 10/21/18 documented as of this encounter
--- OUTSIDE RECORDS SUMMARY | 2025-07-15 14:58 | XMS_ITS | Clinical Summary ---
Author Organization [address] Address [address] [place] [address] Care Team Providers Care Kindergartners Helper Name Role Phone Lucio Oliveira MD Primary Care Provider Lucio Oliveira MD Unavailable [phone] Allergies Active Allergy Reactions Criticality Noted Date [...] II 08/09/2021 Coronary artery disease invo lving [place] coronary artery of [place] heart without angina pectoris 08/09/2021 Cough productive [...] 10/19/2017 Assessment & Plan (06/30/2019 1:54 PM HYDROLOGIC MODELER): He will try to get 30 minutes [...] elevator. Assessment & Plan (06/07/2018 1:52 PM HYDROLOGIC MODELER): Obesity is improving with lifestyle modifications. Discussed [...] hours. Assessment & Plan (06/30/2019 1:53 PM HYDROLOGIC MODELER): He will wear his VPAP auto nightly [...] set at 22/14 cm water pressure to [facility] for repair replace. Machine needs to [...] titration. Assessment & Plan (06/07/2018 1:52 PM HYDROLOGIC MODELER): He will wear his bilevel machine nightly [...] bedtime. Assessment & Plan (06/07/2018 1:52 PM HYDROLOGIC MODELER): He will try to practice good sleep [...] bedtime. Assessment & Plan (06/30/2019 1:54 PM HYDROLOGIC MODELER): He will take clonazepam 2 mg every [...] Type Department Care Team Description 05/20/[address] [facility] Medical [facility] Cardiology [address] [place] [address] Heber Alvarado MD Med Refill [...] on file Legal Sex Male 2:18 AM HYDROLOGIC MODELER Gender Identity Not on file Sexual Orientation [...] 08/07/2017, 03/2016 Medical Devices Implanted Type Area Business Transformation Manager Device Identifier Shelf Expiration Date Model / Serial / Lot [employer] Maximo Stent Ureteral Set Double Pigtail Tapered Tip Contour [id number] Hydroplus Coated [id number] - [id number] Implanted:Qty: 1 on 12/02/2024 by Sherice Santos MD at [facility] Right: Ureter [employer] Maximo 06/18/2027 [id number] / / [id number] [employer] Kit Lead Neurostimulator Urinary Control Sacral Test Interstim [id number] - [id number] Implanted:Qty: 1 on 03/10/2025 by Shreice Santos MD at [facility] [employer] 05/20/2026 [id number] / / [employer] Lead Neurostimulator Urinary Control Sacral Test Interstim [id number] - [id number] Implanted:Qty: 1 on 03/10/2025 by Sherice Santos MD at [facility] [employer] 10/29/2026 [id number] / / Insurance MEDICARE [facility] MEDICARE Address: [address] [address] MEDICARE AETNA MEDICARE Care Teams Kindergartners Helper Relationship Specialty Start Date End Date Lucio Oliveira MD PCP - General 07/02/19 Lucio Oliveira MD Family Medicine 07/02/19
--- OUTSIDE RECORDS SUMMARY | 2025-07-15 14:58 | XMS_ITS | Clinical Summary ---
Author Organization [facility] Address [address] [place] [address] Phone Care Team Providers Care Disassembler Product Name Role Phone Lucio Oliveira MD Primary Care Provider [phone] Allergies Active Allergy Reactions Criticality Noted Date [...] Completed 08/07/2017, 07/07/2016 Insurance A[employer] Care Teams Disassembler Product Relationship Specialty Start Date End Date Lucio Oliveira MD [address] [place] [address] PCP - General Family Medicine 10/16/18
--- OUTSIDE RECORDS SUMMARY | 2025-07-15 14:59 | XMS_ITS | Encounter Summary ---
Author Organization [facility] Healthcare Address [address] [place] [address] Care Team Providers Care Holder Pile Driving Name Role Phone Lucio Oliveira MD Primary Care Provider [phone] Lucio Oliveira MD Unavailable [phone] Encounter Details Date Type Department Care Team (Late st Contact Info) Description 09/08/2024 Orders Only [facility] Health Information Management [address] [place] [address] Nav Morejon MD [address] [facility] 102 [facility] 102 [place] [address] Social History Tobacco Use Types Packs/Day Years Used Date Smoking Tobacco: Never Alcohol Use Standard Drinks/Week Comments No 0 (1 standard drink = 0.6 oz pur e alcohol) Sex and Gender Information Value Date Recorded Sex Assigned at Not on file Legal Sex Male 2:18 AM FAN RUNNER Gender Identity Not on file Sexual Orientation [...] on filedocumented in this encounter Care Teams Holder Pile Driving Relationship Specialty Start Date End Date Lucio Oliveira MD PCP - General 07/02/19 Lucio Oliveira MD Family Medicine 07/02/19 documented as of this encounter
--- OUTSIDE RECORDS SUMMARY | 2025-07-15 14:59 | XMS_ITS | Clinical Summary ---
Author Organization [facility] Address [address] [place] [address] Care Team Providers Care Physical Therapist Assistant Name Role Phone Pcp, No Primary Care Provider [phone] Social History Tobacco Use Types Packs/Day Years Used Date Smoking Tobacco: Never Assessed Sex and Gender Information Value Date Recorded Sex Assigned at Not on file Legal Sex Male 1:24 PM EST Gender Identity Not on file Sexual Orientation Not on file Plan of Treatment Not on file Medical Devices Not on file Insurance AETNA Care Teams Physical Therapist Assistant Relationship Specialty Start Date End Date Anitha Osei PCP - General Family Medicine 07/02/21
--- OUTSIDE RECORDS SUMMARY | 2025-07-15 14:59 | XMS_ITS | Patient Health Record ---
Author Organization [facility] [employer] Address [address] [place] [address] Care Team Providers Care Supervisor Fish Bait Processing Name Role Phone TAMMIE JOSEPH MD Primary Care Provider Unavail able Nancy Paige Unavailable [phone] GOKUL CARNEY Unavailable Unavailable Allergies Allergen (clinical [...] Tablet Oral; Duration: 90 Days Active Ipratropium [place] 0.02 % Solution INHALE 1 VIAL IN [...] Tobacco use: Nonsmoker Section Notes: Lives in [place] with w hussein of 56 yrs, 2 kids. [place] up [place]. 6 siblings. Education/employment: Retired, worked at [employer] for 33 yrs, then worked at [employer] service: 4 yrs [employer]. Lives in [place] with w hussein of 56 yrs, 2 kids. Grew up [place]. 6 siblings. Education/employment: Retired, worked at [employer] for 33 yrs, then worked at [employer] service: 4 yrs [employer]. Lives in [place] with w hussein of 56 yrs, 2 kids. Grew up [place]. 6 siblings. Education/employment: Retired, worked at [employer] for 33 yrs, then worked at [employer] service: 4 yrs [employer]. Lives in [place] with w hussein of 56 yrs, 2 kids. Grew up [place]. 6 siblings. Education/employment: Retired, worked at [employer] for 33 yrs, then worked at [employer] service: 4 yrs [employer]. Problems Problem Type SNOMED Code ICD Code Onset Dates Problem Status W/U Status Risk Notes Problem Chronic insomnia (914147820) Chronic insomnia (F51.04) Active confirmed Problem Adjustment disorder (76413646) Adjustment disorder with other symptom (F43.29) Active confirmed Problem Obstructive sleep apnea syndrome (20716614) KIRSTEN treated with BiPAP (G47.33) Active confirmed Problem Essential hypertension (71980606) Benign essential HTN (I10) Active confirmed Vital Signs Heart Rate 88 /min 05/15/2025 Height-cm 172.72 cm 05/15/2025 Blood pressure diastolic 90 mm Hg 05/15/2025 Weight-kg 127.91 kg 05/15/2025 Height 68 in 05/15/2025 Blood pressure systolic 142 mm Hg 05/15/2025 Weight 282 lbs 05/15/2025 BMI 42.87 kg/m2 05/15/2025 Encounters Encounter Location Date Provider Diagnosis [facility] [employer] [address] [address] 07/18/2024 Nancy Grecia Adjustment disorder with other symptom F43.29 ; Chronic insomnia F51.04 and KIRSTEN treated with BiPAP G47.33 [facility] [employer] [address] [place] [address] 09/16/2024 Nancyyina Paige Chronic insomnia F51.04 ; Adjustment disorder with other symptom F43.29 ; KIRSTEN treated with BiPAP G47.33 and Benign hypertension I10 [place] [address] [address] 11/14/2024 Nancyyina Cainzahira Adjustment disorder with other symptom F43.29 ; Chronic insomnia F51.04 ; KIRSTEN treated with BiPAP G47.33 ; Benign essential HTN I10 and Encounter for screening for depression Z13.31 [place] [address] [facility] [address] [place] [address] 02/13/2025 Nancy Grecia Chronic insomnia F51.04 ; Adjustment disorder with other symptom F43.29 ; KIRSTEN treated with BiPAP G47.33 and Benign essential HTN I10 [address] [address] 05/15/2025 Nancy Antzahira Chronic insomnia F51.04 ; Adjustment disorder with other symptom F43.29 and KIRSTEN treated with BiPAP G47.33 [facility] [place] [address] [address] 07/31/2024 Nancy Antzahira Adjustment disorder with other symptom F43.29 [place] [address] [address] [facility] [address] [address] 09/17/2024 Nancy Antzahira Assessments Encounter Date Diagnosis (ICD Code) Assessment [...] and management - Encourage follow-up with pulmologist/sle epitaxial reactor operator for further evaluation and management Hypertension - Blood pressure reading high today - Does not check BP regularly at home Plan: - Encouraged purchase of a home blood pressure monitor - Follow up with supervisor covering and lining if evelated blood pressure persist - Encouraged [...] Sertraline 02/13/2025 Chronic insomnia (ICD-10 - F51.04) 05/15/2025 Chronic insomnia (ICD-10 - F51.04) 05/15/2025 Adjustment disorder with other symptom (ICD-10 [...] and management - Encourage follow-up with pulmologist/sle epitaxial reactor operator for further evaluation and management Hypertension - Blood pressure reading high today - Does not check BP regularly at home Plan: - Encouraged purchase of a home blood pressure monitor - Follow up with supervisor covering and lining if evelated blood pressure persist - Encouraged [...] and management - Encourage follow-up with pulmologist/sle epitaxial reactor operator for further evaluation and management Hypertension - Blood pressure reading high today - Does not check BP regularly at home Plan: - Encouraged purchase of a home blood pressure monitor - Follow up with supervisor covering and lining if evelated blood pressure persist - Encouraged [...] and management - Encourage follow-up with pulmologist/sle epitaxial reactor operator for further evaluation and management Hypertension - Blood pressure reading high today - Does not check BP regularly at home Plan: - Encouraged purchase of a home blood pressure monitor - Follow up with supervisor covering and lining if evelated blood pressure persist - Encouraged [...] physician for hypertension management- Recommend follow-up with supervisor covering and lining NephrolithiasisAss essment: Patient reports kidney stones causing [...] equipment function and poor customer service from [email or web address]. Despite compliance with nightly use, patient experiences [...] throughout the day, requiring frequent use of ydiq-tek-bknsmve analgesics. His primary care provider initiated sublingual medication and recommended twice-daily blood pressure monitoring, suggesting consideration of hypertension as a potential etiology given his history of elevated blood pressure readings. The patient's current blood pressure appears improved compared to previous visits. Sleep disturbances include supervisor net making awakening around 5 AM with difficulty returning [...] Provider Name:Nancy almeida, 08/12/2025 01:30:00 PM, [address] [facility] [address], [facility] [address], [place], [address], Insurance Providers Payer Name Payer Address Payer Phone Subscriber Number Group Number Insured Name Patient Relationship to Insured Coverage Start Date Coverage End Date Aetna [address] [place] [address] [phone] [id number] Danial Wilson Self - patient is the [...]
== END 2025-05-06 13:03 ==
PROVIDERS: PCP Family Medicine; Visit Provider Internal Medicine Critical Care Medicine
DX: J44.0 Chronic obstructive pulmonary disease with (acute) lower respiratory infection (principal); J47.9 Bronchiectasis, uncomplicated
CPT/HCPCS: 87101

== ENCOUNTER 2025-07-10 14:41 | Emergency (ER) | payer MEDICARE, SELFPAY ==
[2025-07-10] VITALS (13 sets, daily range): BP systolic 132–181; BP diastolic 75–119; PULSE 69–84; RESP 17–31; TEMP 36.6–36.9; O2SAT 94–98
--- NOTE | ~2025-07-10 | XR_ITS ---
EXAMINATION: XR wrist RT min 3V DATE: 07/10/2025 21:22 INDICATION: Trauma due to fall. TECHNIQUE: 3 views of the right wrist were obtained. COMPARISON: None. FINDINGS: No acute fracture is noted. Mild degenerative changes of radiocarpal joint. Cystic lesion of the scaphoid bone. Soft tissue swelling on the dorsal aspect of the wrist. IMPRESSION: 1. No acute fracture. Soft tissue swelling on the dorsum of the wrist. If symptoms are localized and persistent, repeat x-rays recommended after a few days. Reviewed, dictated and finalized at location T. BILITATION CASEWORKER IMPRESSION: 1. No acute fracture. Soft tissue swelling on the dorsum of the wrist. If sympt oms are localized and persistent, repeat x-rays recommended after a few days.
--- NOTE | ~2025-07-10 | CT_ITS ---
EXAMINATION: CT abdomen pelvis w con DATE: 07/10/2025 20:39 INDICATION: Abdominal pain. TECHNIQUE: Computed tomography (CT) of the abdomen and pelvis was performed 100 cc intravenous contrast. Automated exposure control and iterative reconstruction technique were employed. The dose-length product was 1778.58 mGy-cm. COMPARISON: CT abdomen pelvis 12/03/2024. FINDINGS: Lung bases do not show acute findings. Significant coronary artery calcification of left main and anterior descending and right coronary arteries. Mitral annulus calcification. No focal lesions of liver and spleen. The gallbladder shows no acute findings. Multiple small calcified gallstones are suggested. Bile ducts are normal in size. Pancreas shows no acute findings. No calculi are obstruction of the kidneys. Multiple benign cysts of the left kidney. Significant calcific changes of proximal celiac axis and superior mesenteric artery. No evidence of small bowel obstruction. No inflammatory changes in the pelvis. Multilevel degenerative disc disease of upper lumbar discs. IMPRESSION: 1. Small gallstones in the gallbladder. No CT evidence of cholecystitis. 2. Post surgical changes of the colon. No evidence of small bowel obstruction. 3. Thickened atherosclerotic changes of abdominal aorta including origin of celiac axis and superior mesenteric artery and calcific changes of proximal right renal artery. 4. Significant multivessel coronary artery calcification. Mitral annulus calcification. Reviewed, dictated and finalized at location T. IE IMPRESSION: 1. Small gallstones in the gallbladder. No CT evidence of cholecystitis. 2. Post surgical changes of the colon. No evidence of small bowel obstruction. 3. Thickened atherosclerotic changes of abdominal aorta including origin of naye iac axis and superior mesenteric artery and calcific changes of proximal right renal artery. 4. Significant multivessel coronary artery calcification. Mitral annulus calcif ication.
--- NOTE | ~2025-07-10 | XR_ITS ---
EXAMINATION: XR chest 2V DATE: 07/10/2025 18:35 INDICATION: Bilateral chest wall pain. No mention of trauma. TECHNIQUE: Frontal and lateral views of the chest were obtained. COMPARISON: Chest x-ray dated 11/16/2024. FINDINGS: Cardiomegaly and severe atherosclerotic aorta. Lungs do not show acute findings. Chronically elevated right diaphragm. IMPRESSION: 1. No acute findings. Cardiomegaly and atherosclerotic aorta. Reviewed, dictated and finalized at location T. LEASES AND RENTALS MANAGER
--- OUTSIDE RECORDS SUMMARY | 2025-07-10 17:28 | XMS_ITS | Clinical Summary ---
Author Organization [facility] Address [address] [place] [address] Phone Care Team Providers Care Civil Geotechnical Engineer Name Role Phone Lucio Oliveira MD Primary Care Provider [phone] Allergies Active Allergy Reactions Criticality Noted Date [...] Completed 08/07/2017, 07/07/2016 Insurance [employer] Care Teams Civil Geotechnical Engineer Relationship Specialty Start Date End Date Lucio Oliveira MD [address] [place] [address] PCP - General Family Medicine 10/16/18
--- OUTSIDE RECORDS SUMMARY | 2025-07-10 17:28 | XMS_ITS | Clinical Summary ---
Author Organization [address] Address [address] [place] [address] Care Team Providers Care Dealer Accounts Investigator Name Role Phone Lucio Oliveira MD Primary Care Provider Lucio Oliveira MD Unavailable [phone] Allergies Active Allergy Reactions Criticality Noted Date [...] a day as needed for constipation Active traMADoL (ULTRAM) 50 mg tablet Take [...] (two) times a day 5 5 Active sacubitriL-vals chayito (ENTRESTO) 49-51 mg tabletIndicatio ns:chronic heart failure Take 1 tablet by mouth 2 (two) times a day 180 tablet 1 5 Active Active Problems Problem Noted Date [...] II 08/09/2021 Coronary artery disease invo lving [place] coronary artery of [place] heart without angina pectoris 08/09/2021 Cough productive [...] 10/19/2017 Assessment & Plan (06/30/2019 1:54 PM LEAD SHAREPOINT DEVELOPER): He will try to get 30 [...] elevator. Assessment & Plan (06/07/2018 1:52 PM LEAD SHAREPOINT DEVELOPER): Obesity is improving with lifestyle modifications. [...] hours. Assessment & Plan (06/30/2019 1:53 PM LEAD SHAREPOINT DEVELOPER): He will wear his VPAP auto [...] set at 22/14 cm water pressure to [facility] for repair replace. Machine needs to be [...] titration. Assessment & Plan (06/07/2018 1:52 PM LEAD SHAREPOINT DEVELOPER): He will wear his bilevel machine [...] bedtime. Assessment & Plan (06/07/2018 1:52 PM LEAD SHAREPOINT DEVELOPER): He will try to practice good [...] bedtime. Assessment & Plan (06/30/2019 1:54 PM LEAD SHAREPOINT DEVELOPER): He will take clonazepam 2 mg [...] Encounters Date Type Department Care Team Description 05/20/2025 Telephone [facility] Cardiology [address] [place] [address] Heber Alvarado MD Med Refill [...] on file Legal Sex Male 2:18 AM LEAD SHAREPOINT DEVELOPER Gender Identity Not on file Sexual [...] 02/09/2026 02/09/2025 Pneumococcal vaccine 65+ Completed 08/07/2017, 03/2016 Medical Devices Implanted Type Area Accident Report Clerk Device Identifier Shelf Expiration Date Model / Serial / Lot [employer] Maximo Stent Ureteral Set Double Pigtail Tapered Tip Contour [id number] Hydroplus Coated [id number] - [id number] Implanted:Qty: 1 on 12/02/2024 by Sherice Santos MD at [facility] Right: Ureter [employer] Maximo 06/18/2027 [id number] / / [id number] [employer] Kit Lead Neurostimulator Urinary Control Sacral Test Interstim [id number] - [id number] Implanted:Qty: 1 on 03/10/2025 by Sherice Santos MD at [facility] [employer] 05/20/2026 [id number] / / [employer] Lead Neurostimulator Urinary Control Sacral Test Interstim [id number] - [id number] Implanted:Qty: 1 on 03/10/2025 by Sherice Santos MD at [facility] [employer] 10/29/2026 [id number] / / Insurance MEDICARE [facility] MEDICARE Address: [address] [address] MEDICARE [employer] MEDICARE Care Teams Dealer Accounts Investigator Relationship Specialty Start Date End Date Lucio Oliveira MD PCP - General 07/02/19 Lucio Oliveira MD Family Medicine 07/02/19
--- OUTSIDE RECORDS SUMMARY | 2025-07-10 17:29 | XMS_ITS | Patient Health Record ---
Author Organization [facility] [employer] Address [address] [place] [address] Care Team Providers Care Abrasive Mixer Name Role Phone TAMMIE JOSEPH MD Primary Care Provider Unavail able Nancy Paige Unavailable [phone] GOKUL CARNEY Unavailable Unavailable Allergies Allergen (clinical drug ingredient) Drug/Non Drug Allergy documented on EMR Reaction Allergy Type Onset Date Status codeine Codeine Unknown Drug Allergy Active methylprednisolone Methylprednisolone Unknown Drug Allergy Active prednisone Prednisone Unknown Drug Allergy Activ e Reason For Referral No Information Medications Medication SIG (Take, Route, Frequency, Duration) Notes Start Date End Date Status Omeprazole 20 MG Capsule Delayed Release Oral; Duration: 90 Days Active Pramipexole Dihydrochloride 1 MG Tablet Oral; Duration: 90 Days Active Pregabalin 75 MG Capsule 1 capsule in th e evening 1 to 3 hours before bedtime Orally Once a day Active Potassium Chloride 20 MEQ Packet 1 packet with food Orally Once a day Active Multivitamin - Tablet 1 tablet Orally On ce a day Active Lysine 1000 MG Tablet as directed Orally Active Lidocaine 5 % Patch 1 patch remove after 12 hours Externally Once a day Active Ferrous Sulfate 325 (65 Fe) MG Tablet 1 tablet Orally Three times a Week Active Metoprolol Tartrate 25 MG Tablet TAKE 1 TABLET BY MOUTH TWICE DAILY Oral; Duration: 90 Days Not-Taking Furosemide 40 MG Tablet Oral; Duration: 90 Days Active clonazePAM 0.5 MG Tablet TAKE ONE-HALF T ABLET BY MOUTH EVERY DAY AT BEDTIME ADMINISTER 30 MINUTES BEFORE BEDTIME Oral; Duration: 30 Days Not-Taking Jardiance 10 MG Tablet Oral; Duration: 9 0 Days Active Klor-Con M20 20 MEQ Tablet Extended Release Oral; Duration: 90 Days Active Docusate Sodium 100 MG Capsule TAKE 1 CAPSULE BY MOUTH ONCE DAILY NEEDED FOR CONSTIPATION Oral; Duration: 30 Days Active traMADol HCl 50 MG Tablet TAKE 1 TABLET BY MOUTH TWICE DAILY FOR PAIN Oral; Duration: 15 Days Active Eliquis 5 MG Tablet Oral; Duration: 90 Days Active Trelegy Ellipta 100-62.5-25 MCG/ACT Aerosol Powder Breath Activated 1 puff Inhalation Once a day Active Empagliflozin 10 MG Tablet 1 tablet Oral ly Once a day Active Vitamin D 50 MCG (2000 UT) Tablet 1 tablet Orally Once a day Active Entresto 49-51 MG Tablet Oral; Duration: 90 Days Active Ipratropium [place] 0.02 % Solution INHALE 1 VIAL IN NEBULIZER THREE TIMES DAILY NEEDED FOR SHORTNESS OF BREATH FOR WHEEZING FOR 1 MONTH (USE IN THE NEBULIZER WITH ALBUTEROL) Inhalation; Duration: 24 Days Not-Taking traZODone HCl 100 MG Tablet 2 tablet at bedtime Oral; Duration: 30 days Active Tamsulosin HCl 0.4 MG Capsule TAKE 1 CAPSULE BY MOUTH AT BEDTIME Oral; Duration: 90 Days Active Sertraline HCl 25 MG Tablet Take 1 tablet by mouth once daily; Duration: 30 days 05/15/2025 Active Aspirin 81 81 MG Tablet Delayed Release 1 tablet Orally Once a day Active Spironolactone 25 MG Tablet Oral; Duration: 90 Days Active Balsalazide Disodium 750 MG Capsule 2 capsules Orally Twice a day Active Cholecalciferol 100 MCG (4000 UT) Tablet 1 tablet Orally Once a day Active Roflumilast 500 MCG Tablet Oral; Duratio n: 90 Days Active Albuterol Sulfate HFA 108 (90 Base) MCG/ACT Aerosol Solution INHALE 2 PUFFS BY MOUTH EVERY 4 HOURS NEEDED FOR SHORTNESS OF BREATH OR WHEEZING Inhalation; Duration: 17 Days Active Sotalol HCl 80 MG Tablet Oral; Duration: 90 Days Active Albuterol Sulfate (2.5 MG/3ML) 0.083% Nebulization Solution Inhalation; Duration: 5 Days Active Rosuvastatin Calcium 20 MG Tablet Oral; Duration: 90 Days Active Social History Tobacco Use: Social History Observation Description Date Details (start date - stop date) Never Smoker NA - NA Sex Assigned At : Social History Observation Description Sex Assigned At Male Social History Tobacco Use: Social Info Question Answer Notes Tobacco Control (Standard) Tobacco use: Nonsmoker Section Notes: Lives in [place] with w hussein of 56 yrs, 2 kids. G[place] up [place]. 6 siblings. Education/employment: Retired, worked at [employer] for 33 yrs, then worked at [employer]. service: 4 yrs [employer]. Lives in [place] with w hussein of 56 yrs, 2 kids. Grew up [place]. 6 siblings. Education/employment: Retired, worked at [employer] for 33 yrs, then worked at [employer]. service: 4 yrs [employer]. Lives in [place] with w hussein of 56 yrs, 2 kids. Grew up [place]. 6 siblings. Education/employment: Retired, worked at [employer] for 33 yrs, then worked at [employer]. service: 4 yrs [employer]. Lives in [place] with w hussein of 56 yrs, 2 kids. Grew up [place]. 6 siblings. Education/employment: Retired, worked at [employer] for 33 yrs, then worked at [employer]. service: 4 yrs [employer]. Problems Problem Type SNOMED Code ICD Code Onset Dates Problem Status W/U Status Risk Notes Problem Chronic insomnia (988161702) Chronic insomnia (F51.04) Active confirmed Problem Adjustment disorder (27909105) Adjustment disorder with other symptom (F43.29) Active confirmed Problem Obstructive sleep apnea syndrome (46185128) KIRSTEN treated with BiPAP (G47.33) Active confirmed Problem Essential hypertension (38419342) Benign essential HTN (I10) Active confirmed Vital Signs Heart Rate 88 /min 05/15/2025 Height-cm 172.72 cm 05/15/2025 Blood pressure diastolic 90 mm Hg 05/15/2025 Weight-kg 127.91 kg 05/15/2025 Height 68 in 05/15/2025 Blood pressure systolic 142 mm Hg 05/15/2025 Weight 282 lbs 05/15/2025 BMI 42.87 kg/m2 05/15/2025 Encounters Encounter Location Date Provider Diagnosis [facility] [address] [address] 07/31/2024 Nancy Paige Adjustment disorder with other symptom F43.29 [facility] [place] [address] [address] 09/17/2024 Nancy Paige [facility] [address] [place] [address] 09/16/2024 Nancy Paige Chronic insomnia F51.04 ; Adjustment disorder with other symptom F43.29 ; KIRSTEN treated with BiPAP G47.33 and Benign hypertension I10 [facility] [employer] [address] [place] [address] 11/14/2024 Nancy Paige Adjustment disorder with other symptom F43.29 ; Chronic insomnia F51.04 ; KIRSTEN treated with BiPAP G47.33 ; Benign essential HTN I10 and Encounter for screening for depression Z13.31 [facility] [employer] [address] [place] [address] 02/13/2025 Nancy Paige Chronic insomnia F51.04 ; Adjustment disorder with other symptom F43.29 ; KIRSTEN treated with BiPAP G47.33 and Benign essential HTN I10 [facility] [address] [place] [address] 07/18/2024 Nancy Paige Adjustment disorder with other symptom F43.29 ; Chronic insomnia F51.04 and KIRSTEN treated with BiPAP G47.33 [facility] [employer] [address] [place] [address] 05/15/2025 Nancy Paige Chronic insomnia F51.04 ; Adjustment disorder with other symptom F43.29 and KIRSTEN treated with BiPAP G47.33 Assessments [...] and management - Encourage follow-up with pulmologist/sle steeplechase jockey for further evaluation and management Hypertension - Blood pressure reading high today - Does not check BP regularly at home Plan: - Encouraged purchase of a home blood pressure monitor - Follow up with nuclear equipment design engineer if evelated blood pressure persist - Encouraged to go to urgent care of ER if chest pain develops or concerns symptoms arise Follow-up in 2 months, sooner if concerns arise 11/14/2024 Chronic insomnia (ICD-10 - F51.04) 11/14/2024 Adjustment disorder with other symptom (ICD-10 - F43.29) 02/13/2025 Chronic insomnia (ICD-10 - F51.04) 05/15/2025 Chronic insomnia (ICD-10 - F51.04) 07/18/2024 Adjustment disorder with other symptom (ICD-10 [...] assess mental health status after discontinuing Sertraline 05/15/2025 Adjustment disorder with other symptom (ICD-10 - F43.29) 05/15/2025 KIRSTEN treated with BiPAP (ICD-10 - G47.33) 07/18/2024 Chronic insomnia (ICD-10 - F51.04) Assessment [...] mental health status after discontinuing Sertraline 02/13/2025 Adjustment disorder with other symptom (ICD-10 [...] and management - Encourage follow-up with pulmologist/sle steeplechase jockey for further evaluation and management Hypertension - Blood pressure reading high today - Does not check BP regularly at home Plan: - Encouraged purchase of a home blood pressure monitor - Follow up with nuclear equipment design engineer if evelated blood pressure persist - Encouraged [...] and management - Encourage follow-up with pulmologist/sle steeplechase jockey for further evaluation and management Hypertension - Blood pressure reading high today - Does not check BP regularly at home Plan: - Encouraged purchase of a home blood pressure monitor - Follow up with nuclear equipment design engineer if evelated blood pressure persist - Encouraged [...] and management - Encourage follow-up with pulmologist/sle steeplechase jockey for further evaluation and management Hypertension - Blood pressure reading high today - Does not check BP regularly at home Plan: - Encouraged purchase of a home blood pressure monitor - Follow up with nuclear equipment design engineer if evelated blood pressure persist - Encouraged to go to urgent care of ER if chest pain develops or concerns symptoms arise Follow-up in 2 months, sooner if concerns arise 11/14/2024 Benign essential HTN (ICD-10 - I10) 02/13/2025 KIRSTEN treated with BiPAP (ICD-10 - G47.33) 07/18/2024 KIRSTEN treated with BiPAP (ICD-10 - [...] mental health status after discontinuing Sertraline 02/13/2025 Benign essential HTN (ICD-10 - I10) [...] physician for hypertension management- Recommend follow-up with nuclear equipment design engineer NephrolithiasisAss essment: Patient reports kidney stones causing [...] about walk-in clinic availability for urgent concerns 05/15/2025 Javier Wilson presents with constant headaches over the last few weeks, sleep disturbances, neuropathic leg pain, and urinary incontinence, with stable mood on current psychiatric medications. Depression and anxiety Patient reports stable mood without feeling overwhelmed or anxious. Currently managed on sertraline 25 mg daily, which is a low dose for maintenance. Denies suicidal ideation. Patient appears to be managing well from psychiatric standpoint. Plan: - Continue sertraline 25 mg daily - 3-month follow-up appointment scheduled - Patient advised to return sooner if any problems arise Constant headaches Patient reports constant headaches over the last few weeks that persist from bedtime through awakening, described as severe enough that he holds his head and feels like somebody's banging me in the head. He saw Dr. Monge who prescribed sublingual medication and recommended monitoring blood pressure twice daily and increased water intake. Blood pressure appears improved today compared to previous elevated readings, suggesting possible hypertensive etiology for headaches. Plan: - Monitor blood pressure twice daily as recommended - Increase water intake as advised Sleep disturbances Patient reports poor sleep quality with frequent awakenings, sometimes lying awake for 2 hours before returning to sleep. He typically goes to bed after 10 PM but wakes at 5 AM, suggesting possible sleep fragmentation. Currently taking trazodone 100 mg, 2 tablets nightly, and pramipexole 1 mg, 2 tablets nightly prescribed by Dr. Jones. Plan: - Continue trazodone 100 mg, [address] Jones Sleep apnea Patient uses CPAP machine nightly but reports ongoing issues with equipment function and poor customer service from [employer]. Despite compliance with nightly use, patient experiences breathing difficulties and occasional nights sleeping without the mask. Equipment reportedly functioning normally per supplier assessment. Plan: - Continue nightly CPAP use Medical Decision Making Danial Wilson presents for psychiatric follow-up with recent onset of constant headaches over the past few weeks and ongoing sleep disturbances. The patient reports seeing Dr. Monge recently for evaluation of his constant headaches, which are present upon awakening and persist throughout the day, requiring frequent use of [id number] analgesics. His primary care provider initiated sublingual medication and recommended twice-daily blood pressure monitoring, suggesting consideration of hypertension as a potential etiology given his history of elevated blood pressure readings. The patient's current blood pressure appears improved compared to previous visits. Sleep disturbances include machine long goods helper awakening around 5 AM with difficulty returning to sleep, despite current treatment with trazodone and pramipexole prescribed by Dr. Jones.. The patient reports stable mood on low-dose sertraline 25mg with no suicidal ideation. Additional medical issues include diabetic neuropathy causing significant leg pain and recent fall without head injury, urological concerns managed by Dr. Amado with patient declining surgical interventions due to side effect concerns, and pulmonary issues being treated with an Acapella valve device as prescribed by Dr. Jones. Plan Of Treatment Next Appt Details Provider Name:Nancy almeida, 08/12/2025 01:30:00 PM, [address] [facility] [address], [facility] [address], [place], [address], Insurance Providers Payer Name Payer Address Payer Phone Subscriber Number Group Number Insured Name Patient Relationship to Insured Coverage Start Date Coverage End Date [employer] [address] [place] [address] [id number] Danial Wilson Self - patient is the [...]
--- OUTSIDE RECORDS SUMMARY | 2025-07-10 17:29 | XMS_ITS | Encounter Summary ---
Author Organization [facility] Healthcare Address [address] [place] [address] Care Team Providers Care Morgue Keeper Name Role Phone Lucio Oliveira MD Primary Care Provider [phone] Lucio Oliveira MD Unavailable [phone] Encounter Details Date Type Department Care Team (Late st Contact Info) Description 09/08/2024 Orders Only [facility] Health Information Management [address] [place] [address] Nav Morejon MD [address] [facility] [address] [facility] [address] [place] [address] Social History Tobacco Use Types Packs/Day Years Used Date Smoking Tobacco: Never Alcohol Use Standard Drinks/Week Comments No 0 (1 standard drink = 0.6 oz pur e alcohol) Sex and Gender Information Value Date Recorded Sex Assigned at Not on file Legal Sex Male 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
--- OUTSIDE RECORDS SUMMARY | 2025-07-10 17:29 | XMS_ITS | Clinical Summary ---
Author Organization [facility] Address [address] [place] [address] Care Team Providers Care Insurance Verification Representative Name Role Phone Pcp, No Primary Care Provider Social History Tobacco Use Types Packs/Day Years Used Date Smoking Tobacco: Never Assessed Sex and Gender Information Value Date Recorded Sex Assigned at Not on file Legal Sex Male 1:24 PM EST Gender Identity Not on file Sexual Orientation Not on file Plan of Treatment Not on file Medical Devices Not on file Insurance [employer] Care Teams Insurance Verification Representative Relationship Specialty Start Date End Date Anitha Osei PCP - General Family Medicine 07/02/21
--- NOTE | 2025-07-10 18:09 | ECG_ITS ---
Test Date: 2025-07-10 18:57:46 Measurements Intervals Anthony Rate: 69 P: -58 GA: 95 QRS: -58 QRSD: 142 T: 19 QT: 430 QTc: 463 Interpretive Statements SINUS RHYTHM RIGHT BUNDLE BRANCH BLOCK LEFT ANTERIOR FASCICULAR BLOCK LEFT VENTRICULAR HYPERTROPHY CANNOT R/O SEPTAL INFARCT, AGE INDETERMINATE ABNORMAL ECG Compared to ECG 09/08/2024 06:59:59 NO SIGNIFICANT CHANGE Electronically Signed On 07-11-2025 08:04:58 ORTHOPEDIC RN by Stoney Dodd D.O.
[2025-07-10 18:56] LABS: Hematocrit 45.3 % (42.0-52.0); Hemoglobin 14.8 g/dL (14.0-18.0); Immature Granulocyte Percent A 0.4 % (0-0.5); Lymphocytes Absolute Auto 2.13 K/mm3 (0.9-3.2); Mean Corpuscular HGB Conc 32.7 g/dl (32-36); Mean Corpuscular Hemoglobin 31.4 pg (26-34); Mean Corpuscular Volume 96.0 fl (80-100); Nucleated Red Blood Cells Absolute Auto 0.000 K/mm3 (0.0-0.012); Nucleated Red Blood Cells Perc 0.0 % (0.0-0.2); Platelet Count Result 290 k/mm3 (150-375); Red Blood Count 4.72 M/mm3 (4.6-6.20); White Blood Count 11.3 K/mm3 (4.5-10.0)
[2025-07-10 19:01] LABS: Add Urine Microscopic? YES; Appearance Urine Clear (Clear); Glucose Urine UA 3+ mg/dL (Negative); Leukocyte Esterase Ur Negative LEU/UL (Negative); Nitrate Urine Negative (Negative); Non Pathogenic Casts 0-2; Specific Grav Ur 1.025 (1.001-1.035)
[2025-07-10 19:14] LABS: Alanine Aminotransferase 17 U/L (6-50); Albumin Level 3.8 g/dL (3.5-5.1); Alkaline Phosphatase 137 U/L (38-126); Anion Gap 2 mmol/L (4-12); Aspartate Amino Transferase 57 U/L (17-59); Bilirubin,Total 0.6 mg/dL (0.2-1.3); Blood Urea Nitrogen 10 mg/dL (9-20); Calcium 9.7 mg/dL (8.4-10.2); Carbon Dioxide 30 mmol/L (22-30); Chloride 106 mmol/L (98-107); Estimated CRCL calculation 85 ml/min; Estimated Glomerular Filt Rate > 60; Glucose 98 mg/dL (65-110); Lipase 21 U/L (23-300); Potassium 4.0 mmol/L (3.4-5.0); Sodium 138 mmol/L (137-145); Total Protein 7.2 g/dL (6.3-8.2)
[2025-07-10] MEDS: ONDANSETRON INJ 4 MG/2 ML VIAL IV PUSH (20:52)
[2025-07-10] MEDS: ACETAMINOPHEN 500 MG TABLET 1000 MG PO (21:27)
--- NOTE | 2025-07-11 00:44 | ED.ABDPAIN ---
HPI - Abdominal Pain General Chief Complaint: Abdominal Pain Stated Complaint: fall X2 on sunday Time Seen by Provider: 07/10/25 17:12 History of Present Illness HPI narrative: 79-year-old male presenting with concerns after slipping and falling this last Sunday where he landed on his stomach. He is currently reporting right-sided rib pain, and right wrist pain, and abdominal pain that may or may not be connected. Denies hitting head, loss of consciousness, nausea/vomiting, dizziness/vision changes, fevers/chills, chest pain/shortness breath different from baseline. Patient reports he used to be on Eliquis but no longer has to take it. Related Data Home Medications ?Medication ?Instructions ?Recorded ?Confirmed ?Last Taken ?Type multivitamin (Multiple Vitamins 1 tablet PO DAILY 05/30/19 07/08/25 02/09/24 History tablet) Held on 05/16/24. Instructions: Resume on 05/18/24. cholecalciferol (vitamin D3) 100 4,000 unit PO DAILY 04/18/21 07/08/25 02/09/24 History mcg (4,000 unit) capsule (Vitamin D3) Held on 05/16/24. Instructions: Resume on 05/18/24. lysine HCl 1,000 mg tablet 1,000 mg PO DAILY 10/01/23 07/08/25 02/09/24 History apixaban 5 mg tablet (Eliquis) 5 mg PO BID 12/21/23 07/08/25 02/09/24 History aspirin 81 mg tablet,delayed 81 mg PO DAILY 12/21/23 07/08/25 02/09/24 History release (Adult Low Dose Aspirin) sacubitril 49 mg-valsartan 51 mg 1 tablet PO BID 02/11/24 07/08/25 Unknown History tablet (Entresto) spironolactone 25 mg tablet 25 mg PO DAILY 03/24/24 07/08/25 Unknown History Allergies Allergy/AdvReac Type Severity Reaction Status Date / Time codeine AdvReac Mild CONSTIPATIO Verified 07/10/25 14:49 N methylprednisolone AdvReac Mild Vomiting Verified 07/10/25 14:49 prednisone AdvReac Unknown Vomiting Verified 07/10/25 14:49 Review of Systems Review of Systems: All systems reviewed & are unremarkable except as noted in HPI and below PMFSH Past Medical History Medical History (Updated 07/11/25 @ 00:00 by Background Dasade) Retention of urine Bronchiectasis Gall bladder disease COPE (chronic obstructive pulmonary emphysema) Other ulcerative colitis without complications Elevated glucose QT prolongation Benign hypertension with chronic kidney disease Intentional overdose Chronic lower back pain Diabetic polyneuropathy Shortness of breath Obstructive sleep apnea Peripheral vascular disease Peripheral neuropathy Chronic anticoagulation Ataxia Lumbar spondylosis Atrial fibrillation Diagnosed 01/2022 Atrial flutter Diagnosis 06/2022. Diastolic heart failure BMI greater than 40 Chronic anemia Ulcerative colitis Pulmonary embolism (08/2018) Secondary erythrocytosis Related to COPD and obstructive sleep apnea. Previously received therapeutic phlebotomy. Tubulovillous adenoma of colon Overactive bladder Benign prostatic hyperplasia Hypertension Gastroesophageal reflux disease Chronic obstructive pulmonary disease Compression fx, thoracic spine Low serum vitamin D Anxiety Hyperlipidemia Surgical History Surgical History History of transurethral resection of prostate History of prostatectomy History of cardioversion History of esophageal dilatation History of colonoscopy with polypectomy History of extraction of renal calculus History of cystoscopy History of cardiac catheterization History of right hemicolectomy (06/10/19) Benign tubulovillous adenoma. History of decompression of ulnar nerve Left elbow. History of bilateral cataract extraction History of dental surgery Family History Family History Father Hypertension Malignant neoplasm of prostate Cancer Sibling Diabetes mellitus Family history of cardiovascular disease Hypertension Heart disease Heart problem Mother Family history of rheumatic fever Heart disease Asthma Acute myocardial infarction, Onset Age: 53 Heart problem Sibling Cancer Heart transplant recipient Other Family history of coronary artery disease Family history of lung cancer Social History Social History Social History: Surrogate decision maker: Akua Wilson, spouse. Code status: Do not resuscitate. 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 Gender identity (if verbalized by the patient): Male Spiritual care concerns: No Exam Narrative: GENERAL: No acute distress. HEAD: Normocephalic, atraumatic. EYES: PERRLA and EOMI. ENT: Nares clear, no rhinorrhea or epistaxis. Mucous membranes moist. Oropharynx without tonsillar hypertrophy exudate or other lesions. Bilateral TMs [place] non-bulging NECK: Supple. No adenopathy or masses. No carotid bruits or JVD CHEST: Clear to auscultation. No wheezes rales or rhonchi. Respiratory effort increased, baseline according to patient. Mild TTP of right lower rib region. HEART: Regular rate and rhythm. No murmur heard. Normal peripheral pulses. ABDOMEN: Normal active bowel sounds, protuberant abdomen, mild TTP hard to localize EXTREMITIES: Normal range of motion. No edema. SKIN: Warm, dry, no rash. NEURO: No focal deficits. Alert and oriented x3. PSYCH: Normal mood and affect Course Vital Signs Vital signs: Vital Signs Temperature 98.4 F 07/10/25 14:45 Pulse Rate 76 07/10/25 14:45 Respiratory Rate 17 07/10/25 14:45 Blood Pressure 132/88 07/10/25 14:45 Pulse Oximetry 97 07/10/25 14:45 Oxygen Delivery Room Air 07/10/25 14:45 Temperature 97.8 F 07/10/25 22:23 Pulse Rate 84 07/10/25 22:12 Respiratory Rate 23 H 07/10/25 22:12 Blood Pressure 167/75 H 07/10/25 22:12 Pulse Oximetry 95 07/10/25 22:12 Oxygen Delivery Room Air 07/10/25 16:34 [facility] MDM Narrative Medical decision making narrative: 79-year-old male presenting with concerns after slipping and falling this last Sunday where he landed on his stomach. He is currently reporting right-sided rib pain, and right wrist pain, and abdominal pain that may or may not be connected. Denies hitting head, loss of consciousness, nausea/vomiting, urinary complaints, dizziness/vision changes, fevers/chills, chest pain/shortness breath different from baseline. Patient reports he used to be on Eliquis but no longer has to take it. Upon my initial assessment patient appears nontoxic with stable vitals. Patient does appear to be breathing heavily however he reports this is his baseline any maintains good oxygen saturations. CXR demonstrates no acute abnormalities. Labs demonstrate mild leukocytosis at 11.3 but are otherwise unremarkable. Administered Tylenol which gave mild improvement. CT abdomen pelvis demonstrates no acute abnormalities. Patient is aware of cholelithiasis. Also discussed presence of multivessel atherosclerosis and calcifications and need for close follow-up with his PCP for continued monitoring. Patient verbalized understanding noting that he is due to see his vacuum frame operator at the beginning of July. He did have a mild reaction following the CT with contrast including flushing and nausea. Administered Zofran which improved patient's symptoms. Wrist x-ray demonstrates no acute abnormalities although it does recommend follow-up imaging if symptoms persist. Patient verbalized understanding to this as well. UA demonstrated mild changes however patient was not reporting any urinary concerns. Patient's overall workup was unremarkable. Patient was instructed as to limitations of CT and laboratory evaluation and encouraged to follow with PCP for further evaluation. Patient voices mild frustration but agrees with discussion and after shared medical decision making agrees with plan of care. All questions were answered to the patient's satisfaction. Given reasons to return to the ED. Differential Diagnosis Differential Diagnosis: Differential diagnostic considerations for acute abdominal pain include surgical abdominal etiology, ischemic bowel, inflammatory bowel disease, gastritis, PUD, gastroenteritis, cardiac etiology, appendicitis, diverticulitis, bowel obstruction, kidney stone, pyelonephritis, abdominal aortic aneurysm, pancreatitis, constipation, endometriosis. Medical Records I have reviewed the following patient records and this information was taken into consideration when formulating the assessment and plan.: previous labs, previous ER visits and previous hospitalizations Lab Data MDM Lab Attestation statement: I personally reviewed the patient's lab results. 07/10/25 18:49 07/10/25 18:49 Labs: Lab Results 07/10/25 07/10/25 Range/Units 18:40 18:49 WBC 11.3 H (4.5-10.0) K/mm3 RBC 4.72 (4.6-6.20) M/mm3 Hgb 14.8 (14.0-18.0) g/dL Hct 45.3 (42.0-52.0) % MCV 96.0 (80-100) fl MCH 31.4 (26-34) pg MCHC 32.7 (32-36) g/dl RDW 13.7 (11.5-14.5) % Plt Count 290 (150-375) k/mm3 MPV 9.8 (7.4-10.4) fl Immature Gran % (Auto) 0.4 (0-0.5) % Neut % (Auto) 71.2 (45.5-73.1) % Lymph % (Auto) 18.9 (18.3-44.2) % [place] % (Auto) 5.6 (2.6-8.5) % Eos % (Auto) 2.8 (0-4.4) % Baso % (Auto) 1.1 (0.2-1.2) % Lymph # (Auto) 2.13 (0.9-3.2) K/mm3 [place] # (Auto) 0.6 (0.1-0.6) K/mm3 Eos # (Auto) 0.3 (0-0.3) K/mm3 Baso # (Auto) 0.1 (0.0-0.1) K/mm3 Abs Immat Gran (auto) 0.04 H (0.00-0.031) K/mm3 Absolute Neuts (auto) 8.1 H (1.3-6.7) K/mm3 Absolute Nucleated RBC 0.000 (0.0-0.012) K/mm3 Nucleated RBC % 0.0 (0.0-0.2) % Sodium 138 (137-145) mmol/L Potassium 4.0 (3.4-5.0) mmol/L Chloride 106 (98-107) mmol/L Carbon Dioxide 30 (22-30) mmol/L Anion Gap 2 L (4-12) mmol/L BUN 10 (9-20) mg/dL Creatinine 0.78 (0.7-1.3) mg/dL Estim Creat Clear Calc 85 ml/min Estimated GFR > 60 (59 - ) Glucose 98 (65-110) mg/dL Calcium 9.7 (8.4-10.2) mg/dL Total Bilirubin 0.6 (0.2-1.3) mg/dL AST 57 (17-59) U/L ALT 17 (6-50) U/L Alkaline Phosphatase 137 H (38-126) U/L Total Protein 7.2 (6.3-8.2) g/dL Albumin 3.8 (3.5-5.1) g/dL Lipase 21 L (23-300) U/L Urine Color Yellow (Yellow) Urine Appearance Clear (Clear) Urine pH 6.5 (5.0-9.0) Ur Specific [place] 1.025 (1.001-1.035) Urine Protein 1+ H (Negative) mg/dL Urine Glucose (UA) 3+ H (Negative) mg/dL Urine Ketones Trace H (Negative) mg/dL Ur Blood (Man) Negative (Negative) Urine Nitrate Negative (Negative) Urine Bilirubin Negative (Negative) Urine Urobilinogen 1.0 (<2.0) mg/dL Leukocyte Esterase Rfl Negative (Negative) ЕКАТЕРИНА/UL Urine RBC 0-2 (0-2) /hpf Urine WBC 6-10 H (0-3) /hpf Ur Squamous Epith Cells None seen (Few) /hpf Urine Bacteria None seen /hpf Urine Casts 0-2 Imaging Data Attestation: I personally reviewed and interpreted this imaging study as follows: Radiologist's impression: ITS Impressions Chest X-Ray 07/10/25 18:37 IMPRESSION: 1. No acute findings. Cardiomegaly and atherosclerotic aorta. Abdomen/Pelvis CT 07/10/25 20:39 IMPRESSION: 1. Small gallstones in the gallbladder. No CT evidence of cholecystitis. 2. Post surgical changes of the colon. No evidence of small bowel obstruction. 3. Thickened atherosclerotic changes of abdominal aorta including origin of celiac axis and superior mesenteric artery and calcific changes of proximal right renal artery. 4. Significant multivessel coronary artery calcification. Mitral annulus calcification. Wrist X-Ray 07/10/25 21:24 IMPRESSION: 1. No acute fracture. Soft tissue swelling on the dorsum of the wrist. If symptoms are localized and persistent, repeat x-rays recommended after a few days. ECG Data EKG #1: ECG completion date: 07/10/25 ECG completion time: 18:57 normal rate, sinus rhythm and no acute changes Discharge Plan Discharge Clinical Impression: Fall, Abdominal pain, Acute wrist pain, Rib pain Patient Disposition: Home Condition: Stable Instructions: Antibiotic Form, Fall Prevention (ED) Additional Instructions: Return to the emergency department if you experience fever, chest pain, shortness of breath, abdominal pain with nausea and vomiting, weakness, numbness/tingling, or any other symptoms that are concerning to you. Follow up with primary care doctor within the next week for repeat x-rays if wrist concerns continue as well as any other general concerns. Patient Language: [place] Island[place] Prescriptions: No Action Vitamin D3 100 mcg (4,000 unit) capsule 4,000 unit PO DAILY spironolactone 25 mg tablet 25 mg PO DAILY pregabalin 75 mg capsule 75 mg PO BID Qty: 60 5RF pramipexole 1 mg tablet See Rx Instructions .ROUTE .COMPLEX Qty: 180 1RF Dose Instruction: TAKE 1 TO 2 TABLETS 2-3 HOURS PRIOR TO BEDTIME Rx Instructions: TAKE 1 TO 2 TABLETS 2-3 HOURS PRIOR TO BEDTIME trazodone 100 mg tablet 200 mg PO QHS PRN (Reason: insomnia) Qty: 180 1RF Jardiance 10 mg tablet 10 mg PO DAILY Qty: 90 0RF docusate sodium [Colace] 100 mg capsule 100 mg PO BID Qty: 30 1RF rosuvastatin 20 mg tablet 20 mg PO HS Qty: 90 0RF albuterol sulfate 2.5 mg /3 mL (0.083 %) solution for nebulization 2.5 mg inhalation Q4-6H PRN (Reason: shortness of breath or wheezing) Qty: 360 3RF aspirin [Adult Low Dose Aspirin] 81 mg Tablet,Delayed Release (Dr/Ec) 81 mg PO DAILY Eliquis 5 mg tablet 5 mg PO BID Patient Comments: Pt to hold until post op sotalol 80 mg Tablet 80 mg PO Q12HR Qty: 60 0RF sertraline 25 mg tablet 25 mg PO DAILY Qty: 30 0RF Entresto 49-51 mg tablet 1 tablet PO BID multivitamin [Multiple Vitamins] Tablet 1 tablet PO DAILY lysine HCl 1,000 mg tablet 1,000 mg PO DAILY furosemide 40 mg Tablet 40 mg PO DAILY Qty: 30 0RF tamsulosin [Flomax] 0.4 mg capsule 0.4 mg PO DAILY Qty: 7 0RF ferrous sulfate 325 mg (65 mg iron) tablet 325 mg PO DAILY Qty: 60 0RF omeprazole 20 mg capsule,delayed release(DR/EC) 20 mg PO DAILY Qty: 90 3RF albuterol sulfate 90 mcg/actuation HFA aerosol inhaler 2 inh inhalation Q4H PRN (Reason: shortness of breath or wheezing) Qty: 8.5 2RF potassium chloride [Klor-Con M20] 20 mEq tablet,ER particles/crystals See Rx Instructions .ROUTE .COMPLEX Qty: 90 3RF Dose Instruction: TAKE 1 TABLET DAILY Rx Instructions: TAKE 1 TABLET DAILY balsalazide 750 mg capsule 2,250 mg PO BID Qty: 540 1RF roflumilast 500 mcg tablet 500 mcg PO DAILY 90 Days Qty: 90 3RF tramadol 50 mg tablet 50 mg PO Q6H PRN (Reason: pain) Qty: 60 1RF Follow-up/Referrals: Lucio Oliveira MD [Primary Care Provider, Family Practice]
== END 2025-07-10 22:27 | disposition home or self-care (01) ==
PROVIDERS: PCP Family Medicine
DX: R10.9 Unspecified abdominal pain (principal); S69.91XA Unspecified injury of right wrist, hand and finger(s), initial encounter; R07.89 Other chest pain; J43.9 Emphysema, unspecified; I13.0 Hypertensive heart and chronic kidney disease with heart failure and stage 1 through stage 4 chronic kidney disease, or unspecified chronic kidney disease; I50.30 Unspecified diastolic (congestive) heart failure; E11.22 Type 2 diabetes mellitus with diabetic chronic kidney disease; N18.9 Chronic kidney disease, unspecified; E11.42 Type 2 diabetes mellitus with diabetic polyneuropathy; E11.51 Type 2 diabetes mellitus with diabetic peripheral angiopathy without gangrene; I73.9 Peripheral vascular disease, unspecified; I48.91 Unspecified atrial fibrillation; E78.5 Hyperlipidemia, unspecified; D64.9 Anemia, unspecified; D75.1 Secondary polycythemia; K51.80 Other ulcerative colitis without complications; K21.9 Gastro-esophageal reflux disease without esophagitis; N40.0 Benign prostatic hyperplasia without lower urinary tract symptoms; N32.81 Overactive bladder; G47.33 Obstructive sleep apnea (adult) (pediatric); F41.9 Anxiety disorder, unspecified; Z66 Do not resuscitate; Z86.711 Personal history of pulmonary embolism; Z90.79 Acquired absence of other genital organ(s); Z90.49 Acquired absence of other specified parts of digestive tract; Z98.42 Cataract extraction status, left eye; Z98.41 Cataract extraction status, right eye; Z79.84 Long term (current) use of oral hypoglycemic drugs; Z79.899 Other long term (current) drug therapy; Z79.82 Long term (current) use of aspirin; Z77.22 Contact with and (suspected) exposure to environmental tobacco smoke (acute) (chronic); I45.2 Bifascicular block; R94.31 Abnormal electrocardiogram [ECG] [EKG]; I51.7 Cardiomegaly; I25.10 Atherosclerotic heart disease of native coronary artery without angina pectoris; I70.0 Atherosclerosis of aorta; W01.0XXA Fall on same level from slipping, tripping and stumbling without subsequent striking against object, initial encounter
CPT/HCPCS: 36415; 71046; 73110; 74177; 80053; 81001; 83690; 85025; 87086; 87186; 93005; 96374; 99284; A9270; J2405; Q9967

== ENCOUNTER 2025-07-16 14:10 | Outpatient (CLI) | payer MEDICARE, SELFPAY ==
--- NOTE | ~2025-07-16 | US_ITS ---
EXAM/PROCEDURE: US arterial ankle brachial ind HISTORY: PVD COMPARISON: None available. TECHNIQUE: NOAH FINDINGS: Right and left brachial pressure readings are 181 and 185 The right dorsalis pressure reading is 205 The left dorsalis pressure reading and both right and left posterior tibial pressure readings could not be obtained. Right and left great toe pressure readings are 168 and 147 Right and left TBI's are 0.91 and 0.79 Right NOAH is 1.11 Plethysmography appears within normal limits. IMPRESSION: Incomplete exam with no NOAH available for the left lower extremity. The right NOAH is within normal limits. Consider correlation with dedicated duplex arterial interrogation of the lower examination. Reviewed, dictated and finalized at location A. KING CLERK IMPRESSION: Incomplete exam with no NOAH available for the left lower extremity. The right A BI is within normal limits. Consider correlation with dedicated duplex arterial interrogation of the lower examination.
--- NOTE | ~2025-07-16 | XR_ITS ---
EXAMINATION: XR abdomen/kub 1V, 07/16/2025 14:27 CHUTE LOADER HISTORY: calculus of kidney COMPARISON: No comparisons available. Technique: 3 view. Findings: Bowel gas pattern unremarkable. No obstruction. No free air. No abnormal calcifications No acute osseous abnormality. Impression: 1. No renal calculi identified, moderate fecal content obscures evaluation Reviewed, dictated and finalized at location P. E LOADER Impression: 1. No renal calculi identified, moderate fecal content obscures evaluation
--- OUTSIDE RECORDS SUMMARY | 2025-07-16 15:18 | XMS_ITS | Clinical Summary ---
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 Assessment & Plan (06/07/2018 1:52 PM MEASUREMENT DEPARTMENT CHIEF CLERK): Obesity is improving with lifestyle modifications. [...] hours. Assessment & Plan (06/30/2019 1:53 PM MEASUREMENT DEPARTMENT CHIEF CLERK): He will wear his VPAP auto [...] set at 22/14 cm water pressure to [facility] for repair replace. Machine needs to [...] titration. Assessment & Plan (06/07/2018 1:52 PM MEASUREMENT DEPARTMENT CHIEF CLERK): He will wear his bilevel machine [...] bedtime. Assessment & Plan (06/07/2018 1:52 PM MEASUREMENT DEPARTMENT CHIEF CLERK): He will try to practice good [...] bedtime. Assessment & Plan (06/30/2019 1:54 PM MEASUREMENT DEPARTMENT CHIEF CLERK): He will take clonazepam 2 mg [...] Type Department Care Team Description 05/20/2025 Telephone [facility] Cardiology [address] [place] [address] Heber Alvarado MD Med Refill [...] on file Legal Sex Male 2:18 AM MEASUREMENT DEPARTMENT CHIEF CLERK Gender Identity Not on file Sexual [...] 08/07/2017, 03/2016 Medical Devices Implanted Type Area Factory Supervisor Device Identifier Shelf Expiration Date Model / Serial / Lot [employer] Maximo Stent Ureteral Set Double Pigtail Tapered Tip Contour [id number] Hydroplus Coated [id number] - [id number] Implanted:Qty: 1 on 12/02/2024 by Sherice Santos MD at [facility] Right: Ureter [employer] Maximo 06/18/2027 [id number] / / [id number] Med[employer] Kit Lead Neurostimulator Urinary Control Sacral Test Interstim [id number] - [id number] Implanted:Qty: 1 on 03/10/2025 by Sherice Santos MD at [facility] [employer] 05/20/2026 [id number] / / [employer] Lead Neurostimulator Urinary Control Sacral Test Interstim [id number] - [id number] Implanted:Qty: 1 on 03/10/2025 by Sherice Santos MD at [facility] [employer] 10/29/2026 [id number] / / Insurance MEDICARE [facility] MEDICARE Address: [address] [address] MEDICARE AETNA MEDICARE Care Teams Multiple Cut Off Saw Operator Relationship Specialty Start Date End Date Lucio Oliveira MD PCP - General 07/02/19 Lucio Oliveira MD Family Medicine 07/02/19
--- OUTSIDE RECORDS SUMMARY | 2025-07-16 15:18 | XMS_ITS | Clinical Summary ---
Author Organization [facility] lin Address [address] [place] [address] Care Team Providers Care Higher Education Administrator Name Role Phone Pcp, No Primary Care Provider [phone] Social History Tobacco Use Types Packs/Day Years Used Date Smoking Tobacco: Never Assessed Sex and Gender Information Value Date Recorded Sex Assigned at Not on file Legal Sex Male 1:24 PM EST Gender Identity Not on file Sexual Orientation Not on file Plan of Treatment Not on file Medical Devices Not on file Insurance AETNA Care Teams Higher Education Administrator Relationship Specialty Start Date End Date Anitha Osei PCP - General Family Medicine 07/02/21
--- OUTSIDE RECORDS SUMMARY | 2025-07-16 15:18 | XMS_ITS | Encounter Summary ---
Author Organization [facility] Address [address] [place] [address] Care Team Providers Care Marine Electronics Technician Name Role Phone Lucio Oliveira MD Primary Care Provider [phone] Encounter Details Date Type Department Care Team (Latest Contact Info) Description 12/18/2008 Outpatient Historical [facility] Palacios, MD Pool NO ADDRESS ON FILE Other Degenerative Diseases of the Basal Ganglia Social History Tobacco Use Types Packs/Day Years Used Date Smoking Tobacco: Never Alcohol Use Standard Drinks/Week Comments No 0 (1 standard drink = 0.6 oz pur e alcohol) Sex and Gender Information Value Date Recorded Sex Assigned at Not on file Legal Sex Male 5:39 AM MANAGER WELLNESS Gender Identity Not on file Sexual Orientation [...] 0 - 41 U/L [facility] ALKALINE PHOSPHATASE 75 40 - 129 [...] and non- Americans is available on the [facility] Intranet at: [email or web address] Select: Lab Policies and Procedures Select: Reference Ranges - GFR 12/18/2008 1:49 PM CDT 12/18/2008 3:00 PM CDT us Pool Palacios MD CHEMISTRY ORDERABLES Edited INTERFACE SYSTEM Refer to clinic/hospital department [facility] CLIA# [id number] [address] [place], [place] [address] * (ABNORMAL) CBC WITH DIFFERENTIAL (12/18/2008 1:49 [...] LAB NEUTROPHILS 60 45 - 70 % [facility] NEUTROPHIL ABSOLUTE 3.88 1.90 - 7.00 K/uL [facility] EOSINOPHILS 3 0 - 7 % [facility] EOSINOPHIL ABSOLUTE 0.19 0.00 - 0.70 K/uL [facility] LYMPHOCYTES 27 16 - 45 % [facility] LYMPHOCYTE ABSOLUTE 1.76 0.70 - 4.50 [...] [facility] CLIA# [id number] [address] [place] [address] documented in this encounter Visit Diagnoses Diagnosis Other degenerative diseases of the basal ganglia documented in this encounter Care Teams Marine Electronics Technician Relationship Specialty Start Date End Date Lucio Oliveira MD [address] [place] [address] PCP - General Family Practice 10/21/18 documented as of this encounter
--- OUTSIDE RECORDS SUMMARY | 2025-07-16 15:18 | XMS_ITS | Encounter Summary ---
Author Organization [facility] Healthcare Address [address] [place] [address] Care Team Providers Care Surveillance Dual Rate Officer Name Role Phone Lucio Oliveira MD Primary Care Provider [phone] Lucio Oliveira MD Unavailable [phone] Encounter Details Date Type Department Care Team (Late st Contact Info) Description 09/08/2024 Orders Only [facility] Health Information Management [address] [place] [address] Nav Moerjon MD [address] [facility] 102 [facility] [address] [place] [address] Social History Tobacco Use Types Packs/Day Years Used Date Smoking Tobacco: Never Alcohol Use Standard Drinks/Week Comments No 0 (1 standard drink = 0.6 oz pur e alcohol) Sex and Gender Information Value Date Recorded Sex Assigned at Not on file Legal Sex Male 2:18 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
--- OUTSIDE RECORDS SUMMARY | 2025-07-16 15:18 | XMS_ITS | Patient Health Record ---
Author Organization [facility] [employer] Address [address] [place] [address] Care Team Providers Care Product Designer Name Role Phone TAMMIE JOSEPH MD Primary Care Provider Unavail able Nancy Paige Unavailable [phone] GOKUL CARNEY Unavailable Unavailable Allergies Allergen (clinical [...] Tablet Oral; Duration: 90 Days Active Ipratropium [place] 0.02 % Solution INHALE 1 VIAL IN [...] Tobacco use: Nonsmoker Section Notes: Lives in [place] with w hussein of 56 yrs, 2 kids. [place]. 6 siblings. Education/employment: Retired, worked at [employer] for 33 yrs, then worked at [employer]. service: 4 yrs [employer]. Lives in [place] with w hussein of 56 yrs, 2 kids. Grew up [place]. 6 siblings. Education/employment: Retired, worked at [employer] for 33 yrs, then worked at [employer]. service: 4 yrs [employer]. Lives in [place] with w hussein of 56 yrs, 2 kids. Grew up [place]. 6 siblings. Education/employment: Retired, worked at [employer] for 33 yrs, then worked at [employer]. service: 4 yrs [employer]. Lives in [place] with w hussein of 56 yrs, 2 kids. Grew up [place]. 6 siblings. Education/employment: Retired, worked at [employer] for 33 yrs, then worked at [employer]. service: 4 yrs [employer]. Problems Problem Type SNOMED Code ICD Code Onset Dates Problem Status W/U Status Risk Notes Problem Chronic insomnia (715335617) Chronic insomnia (F51.04) Active confirmed Problem Adjustment disorder (32445870) Adjustment disorder with other symptom (F43.29) Active confirmed Problem Obstructive sleep apnea syndrome (98225391) KIRSTEN treated with BiPAP (G47.33) Active confirmed Problem Essential hypertension (63035076) Benign essential HTN (I10) Active confirmed Vital Signs Heart Rate 88 /min 05/15/2025 Height-cm 172.72 cm 05/15/2025 Blood pressure diastolic 90 mm Hg 05/15/2025 Weight-kg 127.91 kg 05/15/2025 Height 68 in 05/15/2025 Blood pressure systolic 142 mm Hg 05/15/2025 Weight 282 lbs 05/15/2025 BMI 42.87 kg/m2 05/15/2025 Encounters Encounter Location Date Provider Diagnosis [facility] [employer] [address] [address] 07/18/2024 Nancy Grecia Adjustment disorder with other symptom F43.29 ; Chronic insomnia F51.04 and KIRSTEN treated with BiPAP G47.33 [facility] [employer] [address] [place] [address] 09/16/2024 Nancyyina Paige Chronic insomnia F51.04 ; Adjustment disorder with other symptom F43.29 ; KIRSTEN treated with BiPAP G47.33 and Benign hypertension I10 [place] [address] [address] 11/14/2024 Nancyyina Cainzahira Adjustment disorder with other symptom F43.29 ; Chronic insomnia F51.04 ; KIRSTEN treated with BiPAP G47.33 ; Benign essential HTN I10 and Encounter for screening for depression Z13.31 [place] [address] [facility] [address] [place] [address] 02/13/2025 Nancy Grecia Chronic insomnia F51.04 ; Adjustment disorder with other symptom F43.29 ; KIRSTEN treated with BiPAP G47.33 and Benign essential HTN I10 [address] [address] 05/15/2025 Nancy Antzahira Chronic insomnia F51.04 ; Adjustment disorder with other symptom F43.29 and KIRSTEN treated with BiPAP G47.33 [facility] [place] [address] [address] 07/31/2024 Nancy Antzahira Adjustment disorder with other symptom F43.29 [place] [address] [address] [facility] [address] [address] 09/17/2024 Nancy Antzahira Assessments Encounter Date Diagnosis [...] and management - Encourage follow-up with pulmologist/sle telescope repairer for further evaluation and management Hypertension - Blood pressure reading high today - Does not check BP regularly at home Plan: - Encouraged purchase of a home blood pressure monitor - Follow up with director social welfare if evelated blood pressure persist - Encouraged [...] and management - Encourage follow-up with pulmologist/sle telescope repairer for further evaluation and management Hypertension - Blood pressure reading high today - Does not check BP regularly at home Plan: - Encouraged purchase of a home blood pressure monitor - Follow up with director social welfare if evelated blood pressure persist - Encouraged [...] and management - Encourage follow-up with pulmologist/sle telescope repairer for further evaluation and management Hypertension - Blood pressure reading high today - Does not check BP regularly at home Plan: - Encouraged purchase of a home blood pressure monitor - Follow up with director social welfare if evelated blood pressure persist - Encouraged [...] and management - Encourage follow-up with pulmologist/sle telescope repairer for further evaluation and management Hypertension - Blood pressure reading high today - Does not check BP regularly at home Plan: - Encouraged purchase of a home blood pressure monitor - Follow up with director social welfare if evelated blood pressure persist - Encouraged [...] physician for hypertension management- Recommend follow-up with director social welfare NephrolithiasisAss essment: Patient reports kidney stones causing [...] equipment function and poor customer service from [employer]. Despite compliance with nightly use, patient experiences [...] throughout the day, requiring frequent use of zmmk-pws-tyhxaod analgesics. His primary care provider initiated sublingual medication and recommended twice-daily blood pressure monitoring, suggesting consideration of hypertension as a potential etiology given his history of elevated blood pressure readings. The patient's current blood pressure appears improved compared to previous visits. Sleep disturbances include test lead application testing awakening around 5 AM with difficulty returning [...] Provider Name:Nancy almeida, 08/12/2025 01:30:00 PM, [address] [facility] [address], [facility] [address], [place], [address], Insurance Providers Payer Name Payer Address Payer Phone Subscriber Number Group Number Insured Name Patient Relationship to Insured Coverage Start Date Coverage End Date Aetna [address] [place] [address] [id number] Danial Wilson Self - patient is the [...]
--- OUTSIDE RECORDS SUMMARY | 2025-07-16 15:18 | XMS_ITS | Clinical Summary ---
Author Organization 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 [address] PCP - General Family Practice 10/21/18
--- OUTSIDE RECORDS SUMMARY | 2025-07-16 15:18 | XMS_ITS | Clinical Summary ---
Author Organization [facility] Address [address] [place] [address] Phone Care Team Providers Care Lacing String Cutter Name Role Phone Lucio Oliveira MD Primary Care Provider [phone] Allergies Active Allergy Reactions Criticality Noted Date [...] Completed 08/07/2017, 07/07/2016 Insurance AETNA Care Teams Lacing String Cutter Relationship Specialty Start Date End Date Lucio Oliveira MD [address] [place] [address] PCP - General Family Medicine 10/16/18
== END 2025-07-16 14:11 | disposition home or self-care (01) ==
LOC: ANHIMG 14:15
PROVIDERS: PCP Family Medicine; Visit Provider Psychiatry & Neurology Neurology
DX: N20.0 Calculus of kidney (principal); I73.9 Peripheral vascular disease, unspecified
CPT/HCPCS: 74018; 93922